=== PATIENT | male | born 1965 | race Caucasian/White ===

== ENCOUNTER 2017-04-20 14:42 | Inpatient (IN) | payer MEDICAID ==
[2017-04-20] MEDS ORDERED: Sodium Chloride 0.9% 1,000 ML IV ONE (15:05)
[2017-04-20 15:15] LABS: % BASOPHILS 0.4 % (0.0-2.0); % EOSINOPHILS 0.2 % (0.0-5.0); % LYMPHOCYTES 19.3 % (20.0-50.0); % NEUTROPHILS 73.1 % (40.0-80.0); HEMATOCRIT 38.5 % (41.0-60); MEAN CORPUSCULAR HEMOGLOBIN 30.1 pg (26.0-30.0); MEAN CORPUSCULAR HGB CONC 33.8 pg (28.0-36.0); MEAN PLATELET VOLUME 8.7 fl; PLATELET COUNT 227 Th/cmm (150-400); RED BLOOD COUNT 4.33 Mil/cmm (4.30-5.70); RED CELL DISTRIBUTION WIDTH 19.3 % (11.5-20.0)
[2017-04-20 15:18] LABS: WHITE BLOOD COUNT 13.8 Th/cmm (4.8-10.8)
[2017-04-20 15:33] LABS: ALB/GLOB RATIO 1.2 (1.0-1.8); ALKALINE PHOSPHATASE 53 U/L (34-104); BILIRUBIN,TOTAL 1.7 mg/dL (0.3-1.0); BUN - UREA NITROGEN 29 mg/dL (7-25); BUN/CREATININE RATIO 96.7; CALCIUM SERUM 8.8 mg/dL (8.6-10.3); CARBON DIOXIDE 33.6 mEq/L (21.0-31.0); CHLORIDE 114 mEq/L (98-107); CREATININE - SERUM 0.3 mg/dL (0.7-1.3); GLUCOSE 112 mg/dL (70-105); POTASSIUM SERUM 3.6 mEq/L (3.5-5.1); SGOT 33 U/L (13-39); SGPT/ALT 62 U/L (7-52); SODIUM SERUM 151 mEq/L (136-145)
[2017-04-20 16:15] LABS: HCO3 35.8 mEq/L (20.0-26.0)
[2017-04-20 16:16] LABS: ABG SOURCE Arterial; ALLEN TEST Positive; BE(B) 13.8 mEq/L (-3.0-3.0)
[2017-04-20 16:17] LABS: FIO2 100%
[2017-04-20 17:08] LABS: URINE BILIRUBIN NEGATIVE (NEGATIVE); URINE BLOOD MODERATE (NEGATIVE); URINE GLUCOSE (UA) NEGATIVE (NEGATIVE); URINE KETONE NEGATIVE (NEGATIVE); URINE PROTEIN 30 mg/dL (NEGATIVE); URINE UROBILINOGEN 0.2 E.U./dL (0.2 - 1.0)
[2017-04-20 17:09] LABS: URINE COLOR AMBER
[2017-04-20 17:10] LABS: URINE BACTERIA FEW /hpf (NONE SEEN); URINE EPITHELIAL CELLS OCCASIONAL /lpf (FEW); URINE RBC >100 /hpf (0-5)
--- NOTE | 2017-04-20 18:36 | ED Physician Chart ---
ED Chief Complaint/HPI - Patient Information Date Seen:: 04/20/17 Time Seen:: 15:30 Chief Complaint:: Fever History of Present Illness:: 51 yo male with mental retardation, cerebral palsy and spastic quadriplegia, was brought from [facility] to ER via paramedics. The patient was noted to have SOB at facility along with fever. The patient is is disabled with urinary incontinence. Allergies:: Allergies Allergy/AdvReac Type Severity Reaction Status Date / Time No Known Allergies Allergy Verified 04/20/17 14:44 Vitals:: Vital Signs - 8 hr 04/20/17 04/20/17 14:54 17:24 Temp 98.7 F 98.4 F HR 130 121 RR 25 16 BP 90/70 116/65 O2 Sat % 93 95 ED Review of Systems - Review of Systems General/Constitutional: Fever, No chills, Weakness Skin: No bruising Head: No headache Eyes: No loss of vision ENT: No nasal drainage Neck: No stiffness Cardio Vascular: No edema Pulmonary: SOB GI: No vomiting, No diarrhea G/U: Other (urinary incontinent) Hematopoietic: No bruising ED Past Medical History - Past Medical History Past Medical History: Dementia, Other (cerebral palsy, spastic queadriplegia) Social History: Non Smoker, No Alcohol, No Drug Use Family Medical History - Family Member Mother History Unknown: Yes ED Physical Exam - Physical Examination General/Constitutional: Awake Head: Atraumatic Eyes: PERRL, EOMI Skin: No ecchymosis ENMT: Nasal exam nl Neck: No nuchal rigidity Other Respiratory comments:: Left lung rhonchi Cardio Vascular: RRR, No murmur, gallop, rubs, NL S1 S2 GI: No tenderness/rebounding/guarding Other Extremities comments:: bilateral lower extremities spasm Other Neuro/Psych comments:: Not oriented ED Labs/Radiology/EKG Results - Lab Results Results: Laboratory Tests 04/20/17 04/20/17 04/20/17 15:05 15:09 15:09 WBC 13.8 H RBC 4.33 Hgb 13.0 Hct 38.5 L MCV 89.0 MCH 30.1 H MCHC Differential 33.8 RDW 19.3 Plt Count 227 MPV 8.7 Neutrophils % 73.1 Lymphocytes % 19.3 L Monocytes % 7.0 Eosinophils % 0.2 Basophils % 0.4 Specimen Source Arterial Sample Site Right Radial pH 7.50 H pCO2 50.0 H pO2 252.0 H HCO3 35.8 H Base Excess 13.8 H O2 Saturation 100.0 Endy Test Positive Vent Rate NA Inspired O2 100% Tidal Volume NA PEEP NA Pressure (ins/psv/peep) NA Critical Value ROSALINA/ABHAY Sodium 151 H Potassium 3.6 Chloride 114 H Carbon Dioxide 33.6 H Anion Gap 7.0 BUN 29 H Creatinine 0.3 L Est GFR ( Amer) > 60.0 Est GFR (Non-Af Amer) > 60.0 BUN/Creatinine Ratio 96.7 Glucose 112 H Whole Bld Lactic Acid Calcium 8.8 Total Bilirubin 1.7 H AST 33 ALT 62 H Alkaline Phosphatase 53 Total Protein 5.4 L Albumin 2.9 L Globulin 2.5 Albumin/Globulin Ratio 1.2 Urine Source Urine Color Urine Clarity Urine pH Ur Specific [place] Urine Protein Urine Glucose (UA) Urine Ketones Urine Blood Urine Nitrate Urine Bilirubin Urine Urobilinogen Ur Leukocyte Esterase Urine RBC Urine WBC Ur Epithelial Cells Urine Bacteria 04/20/17 04/20/17 15:09 16:48 WBC RBC Hgb Hct MCV MCH MCHC Differential RDW Plt Count MPV Neutrophils % Lymphocytes % Monocytes % Eosinophils % Basophils % Specimen Source Sample Site pH pCO2 pO2 HCO3 Base Excess O2 Saturation Endy Test Vent Rate Inspired O2 Tidal Volume PEEP Pressure (ins/psv/peep) Critical Value Sodium Potassium Chloride Carbon Dioxide Anion Gap BUN Creatinine Est GFR ( Amer) Est GFR (Non-Af Amer) BUN/Creatinine Ratio Glucose Whole Bld Lactic Acid 1.02 Calcium Total Bilirubin AST ALT Alkaline Phosphatase Total Protein Albumin Globulin Albumin/Globulin Ratio Urine Source RANDOM Urine Color EMORY Urine Clarity HAZY Urine pH 6.0 Ur Specific [place] 1.010 Urine Protein 30 H Urine Glucose (UA) NEGATIVE Urine Ketones NEGATIVE Urine Blood MODERATE H Urine Nitrate NEGATIVE Urine Bilirubin NEGATIVE Urine Urobilinogen 0.2 Ur Leukocyte Esterase TRACE H Urine RBC >100 H Urine WBC 2-5 H Ur Epithelial Cells OCCASIONAL Urine Bacteria FEW - Radiology Results Results: CXR: left basal density ED Assessment - Assessment General Assessment: Leukocytosis, UTI, pneumonia, hypernatremia, metabolic alkalosis, volume depletion Critical Care Time: 30 min Excludes all billable procedures: Yes This condition life threatening/high prob of deterioration: No Assessment/Comments:: CBC, CMP, UA CXR, EKG ABG Blood culture NS 1L IV bolus Rocephin 1g IV ED Septic Shock - . Is Septic Shock (SBP<90, OR Lactate>4 mmol\L) present?: No - <6hrs of presentation: Vital Signs: Vital Signs - 8 hr 04/20/17 04/20/17 14:54 17:24 Temp 98.7 F 98.4 F HR 130 121 RR 25 16 BP 90/70 116/65 O2 Sat % 93 95 ED Reassessment (Disposition) - Reassessment Reassessment Condition:: Improved - Patient Disposition Discharge/Transfer:: Acute Care w/in this [facility] Admitting Medical Physician:: Skip Stephens ED Discharge Plan - Patient Disposition Admit/Discharge/Transfer: Acute Care w/in this [facility]
[2017-04-20] MEDS ORDERED: Albuterol Nebulizer 2.5mg/3mL HHN PRN (20:45)
[2017-04-20] MEDS ORDERED: ACETAMINOPHEN 325 MG PO PRN (20:45)
[2017-04-20] MEDS ORDERED: Hydrocodone/APAP 5mg/325mg Tab PO PRN (20:47)
[2017-04-20] MEDS ORDERED: Maalox 30 mL Cup PO PRN (20:47)
[2017-04-20] MEDS ORDERED: guaiFENesin 200 MG/10 ML UDC PO PRN (20:47)
[2017-04-20] MEDS: Ipratropium Neb 0.5 mg/2.5 mL UD HHN SCH (21:52)
[2017-04-20] MEDS: D5-0.45NS 1,000 ML IV SCH (22:43)
[2017-04-21 01:40] VITALS: BP 117/68
[2017-04-21 06:23] LABS: ANION GAP 6.7 (7.0-16.0); BUN - UREA NITROGEN 23 mg/dL (7-25); CALCIUM SERUM 8.3 mg/dL (8.6-10.3); CARBON DIOXIDE 33.9 mEq/L (21.0-31.0); CHLORIDE 118 mEq/L (98-107); CREATININE - SERUM 0.2 mg/dL (0.7-1.3); MAGNESIUM 2.4 mg/dL (1.9-2.7); POTASSIUM SERUM 3.6 mEq/L (3.5-5.1); SODIUM SERUM 155 mEq/L (136-145)
[2017-04-21 06:28] LABS: % BASOPHILS 0.5 % (0.0-2.0); % EOSINOPHILS 0.5 % (0.0-5.0); % LYMPHOCYTES 18.8 % (20.0-50.0); % MONOCYTES 6.7 % (2.0-10.0); % NEUTROPHILS 73.5 % (40.0-80.0); HEMATOCRIT 33.9 % (41.0-60); HEMOGLOBIN 11.4 gm/dL (12-16); MEAN CELL VOLUME 89.6 fl (80-99); MEAN CORPUSCULAR HEMOGLOBIN 30.1 pg (26.0-30.0); MEAN CORPUSCULAR HGB CONC 33.6 pg (28.0-36.0); MEAN PLATELET VOLUME 9.2 fl; NEUTROPHILE ABSOLUTE 7.3 Th/cmm (1.8-8.0); PLATELET COUNT 195 Th/cmm (150-400); RED BLOOD COUNT 3.78 Mil/cmm (4.30-5.70); RED CELL DISTRIBUTION WIDTH 19.5 % (11.5-20.0)
[2017-04-21 06:36] LABS: WHITE BLOOD COUNT 9.7 Th/cmm (4.8-10.8)
[2017-04-21 06:47] LABS: TSH 1.13 uIU/ml (0.34-5.60)
[2017-04-21] MEDS: Ipratropium Neb 0.5 mg/2.5 mL UD HHN SCH ×4 (07:10→21:12)
[2017-04-21] MEDS: Albuterol Nebulizer 2.5mg/3mL HHN SCH ×4 (07:10→21:12)
[2017-04-21 07:19] LABS: GLUCOSE 98 mg/dL (70-105)
[2017-04-21] MEDS: Calcium Carb/Vit D 500 mg/200 U Tab PO SCH (08:49)
[2017-04-21] MEDS ORDERED: MINERALS PO SCH (09:00)
[2017-04-21] MEDS ORDERED: MULTIVIT PO SCH (09:00)
[2017-04-21] MEDS ORDERED: FERROUS FUM PO SCH (09:00)
--- NOTE | 2017-04-21 10:00 | Diagnostic Imaging Report ---
CHEST X-RAY: AP view INDICATION: Hypoxia COMPARISON: None FINDINGS: Left basal density seen adjacent to the left heart border. Chronic lung changes are seen with COPD changes. No evidence of pneumothorax. There is deformity of the right fourth posterior rib which may have been due to previous fracture. There is also 5 mm density projecting along the right anterior second rib. Heart size is normal. Osseous structures are intact. IMPRESSION: Left basal density adjacent to left heart border. Findings may be due to atelectasis or focal infiltrate, please correlate clinically. COPD lung changes. 5 mm density projecting along the right anterior second rib. This may represent an overlying lead. A pulmonary granuloma would be considered less likely. Recommend short-term repeat x-ray including apical lordotic views. Age-indeterminate deformity of the right posterior fourth rib which may have been due to previous fracture. No evidence of pneumothorax.
[2017-04-21] MEDS: D5-0.45NS 1,000 ML IV SCH (14:19)
[2017-04-21] MEDS ORDERED: Dextrose 5% 1,000 ML IV SCH (16:41)
[2017-04-21] MEDS: cefTRIAXone 1 GM in Sodium Chloride 0.9% 50 ML IV SCH (20:20)
--- NOTE | 2017-04-21 22:20 | History & Physical ---
ADMIT DATE: 04/20/2017 CHIEF COMPLAINT: Change in his mental status, not responding. HISTORY OF PRESENT ILLNESS: This is a 51-year-old male with history of dementia and mental retardation, anemia ____ was admitted from nursing facility secondary to generalized weakness. The patient was diagnosed with bladder infection and blood in the urine. The patient was admitted for further management. PAST MEDICAL HISTORY: As mentioned in history present illness. PAST SURGICAL HISTORY: G-tube. ALLERGIES: No known drug allergies. MEDICATIONS: Tylenol, albuterol, vitamin C, Colace, famotidine, metoprolol, and multivitamins. FAMILY HISTORY: Noncontributory. SOCIAL HISTORY: The patient lives in senior living. The patient requiring 24-hour total care. REVIEW OF SYSTEMS: This is limited secondary to the patient's current mental state. We will try to obtain more detailed review of system at a later date by talking to family members. There is a father, Pipe Christie, and mother ____ [phone]. The father is in the [place] area ____ as well as nursing staff at [facility] [phone] Barfield who normally follows the patient. PHYSICAL EXAMINATION: VITAL SIGNS: Blood pressure 100/59, respirations 18, pulse 104, temperature is 97.5. GENERAL: Elderly male who appears his stated age, thin. NECK: Supple. No mass. LUNGS: Equal breath sounds, few rhonchi. HEART: Regular rate and rhythm without appreciable murmurs. ABDOMEN: Soft, globular. EXTREMITIES: Positive excoriations. NEUROLOGIC: Limited, unable to get a response from the patient. LABORATORY DATA: As detailed in the laboratory sheet. WBC 13, hemoglobin 11.4, platelets is 195. Sodium 135, potassium 3.6, BUN 20, creatinine 0.3, blood sugar was 112, total bilirubin 1.7, albumin was 2.9. ASSESSMENT AND PLAN: Sepsis, urinary tract infection, leukocytosis, anemia, renal insufficiency, elevated ammonia, hematuria, mental retardation, moderate protein-calorie malnutrition. We will continue the patient on IV hydration and IV antibiotics. Continue oxygen and bronchodilator treatment. We will review the patient's chest x-ray. We will follow the patient's urine culture and sensitivity. Continue with current care. We will follow consult recommendations. [facility]# [id number]
[2017-04-22] MEDS ORDERED: Ipratropium Neb 0.5 mg/2.5 mL UD HHN ONE (06:12)
[2017-04-22] MEDS ORDERED: Albuterol Nebulizer 2.5mg/3mL HHN ONE (06:12)
[2017-04-22] MEDS: Albuterol Nebulizer 2.5mg/3mL HHN SCH ×4 (06:30→19:15)
[2017-04-22] MEDS: Ipratropium Neb 0.5 mg/2.5 mL UD HHN SCH ×4 (06:30→19:15)
--- NOTE | 2017-04-22 09:08 | Diagnostic Imaging Report ---
CHEST X-RAY: AP view INDICATION: Pneumonia COMPARISON: 04/20/2017 FINDINGS: There is linear density seen projecting along the left lateral lung which may represent area of scarring. No definite pneumothorax is identified. Increased left basal lung markings are again noted adjacent to the left heart border. The prior area of nodularity seen along the right apex is not visualized and may have represented overlying external material. Heart size is normal. IMPRESSION: Left basal density along the left heart border. Pneumonia in this region cannot be excluded. Please correlate with clinical findings. CT of the chest would provide additional detail and assessment. Left lateral lung linear density projecting vertically. This may represent areas of scarring and chronic changes. No definite pneumothorax is identified. Again CT would further clarify.
[2017-04-22] MEDS: Calcium Carb/Vit D 500 mg/200 U Tab PO SCH (09:27)
[2017-04-22] MEDS ORDERED: Probiotic Screen MC PRN (13:30)
--- NOTE | 2017-04-22 19:03 | Internal Medicine Prog Note ---
Internal Medicine Subjective - Subjective Patient seen and examined:: with staff, chart reviewed Patient is:: awake, non-verbal, non-interactive, in bed, congested Patient Complaints of:: congestion Per staff patient has:: no adverse event, no episodes of fall, poor appetite, poor oral intake, tolerating meds Internal Medicine Objective - Results Result Diagrams: 04/21/17 05:05 04/21/17 05:05 Recent Labs: Laboratory Last Values WBC 9.7 Th/cmm (4.8-10.8) D 04/21/17 05:05 RBC 3.78 Mil/cmm (4.30-5.70) L 04/21/17 05:05 Hgb 11.4 gm/dL (12-16) L 04/21/17 05:05 Hct 33.9 % (41.0-60) L D 04/21/17 05:05 MCV 89.6 fl (80-99) 04/21/17 05:05 MCH 30.1 pg (26.0-30.0) H 04/21/17 05:05 MCHC Differential 33.6 pg (28.0-36.0) 04/21/17 05:05 RDW 19.5 % (11.5-20.0) 04/21/17 05:05 Plt Count 195 Th/cmm (150-400) 04/21/17 05:05 MPV 9.2 fl 04/21/17 05:05 Neutrophils % 73.5 % (40.0-80.0) 04/21/17 05:05 Lymphocytes % 18.8 % (20.0-50.0) L 04/21/17 05:05 Monocytes % 6.7 % (2.0-10.0) 04/21/17 05:05 Eosinophils % 0.5 % (0.0-5.0) 04/21/17 05:05 Basophils % 0.5 % (0.0-2.0) 04/21/17 05:05 Specimen Source Arterial 04/20/17 15:05 Sample Site Right Radial 04/20/17 15:05 pH 7.50 (7.35-7.45) H 04/20/17 15:05 pCO2 50.0 mmHg (35.0-45.0) H 04/20/17 15:05 pO2 252.0 mmHg (80.0-100.0) H 04/20/17 15:05 HCO3 35.8 mEq/L (20.0-26.0) H 04/20/17 15:05 Base Excess 13.8 mEq/L (-3.0-3.0) H 04/20/17 15:05 O2 Saturation 100.0 % (92.0-100.0) 04/20/17 15:05 Endy Test Positive 04/20/17 15:05 Vent Rate NA 04/20/17 15:05 Inspired O2 100% 04/20/17 15:05 Tidal Volume NA 04/20/17 15:05 PEEP NA 04/20/17 15:05 Pressure (ins/psv/peep) NA 04/20/17 15:05 Critical Value ROSALINA/ABHAY 04/20/17 15:05 Sodium 155 mEq/L (136-145) H 04/21/17 05:05 Potassium 3.6 mEq/L (3.5-5.1) 04/21/17 05:05 Chloride 118 mEq/L (98-107) H 04/21/17 05:05 Carbon Dioxide 33.9 mEq/L (21.0-31.0) H 04/21/17 05:05 Anion Gap 6.7 (7.0-16.0) L 04/21/17 05:05 BUN 23 mg/dL (7-25) 04/21/17 05:05 Creatinine 0.2 mg/dL (0.7-1.3) L 04/21/17 05:05 Est GFR ( Amer) > 60.0 ml/min (>90) 04/21/17 05:05 Est GFR (Non-Af Amer) > 60.0 ml/min 04/21/17 05:05 BUN/Creatinine Ratio 115.0 04/21/17 05:05 Glucose 98 mg/dL (70-105) D 04/21/17 05:05 Whole Bld Lactic Acid 1.02 mmol/L (0.60-1.99) 04/20/17 15:09 Calcium 8.3 mg/dL (8.6-10.3) L 04/21/17 05:05 Magnesium 2.4 mg/dL (1.9-2.7) 04/21/17 05:05 Total Bilirubin 1.7 mg/dL (0.3-1.0) H 04/20/17 15:09 AST 33 U/L (13-39) 04/20/17 15:09 ALT 62 U/L (7-52) H 04/20/17 15:09 Alkaline Phosphatase 53 U/L (34-104) 04/20/17 15:09 Ammonia 58 umol/L (16-53) H 04/21/17 05:05 Total Protein 5.4 gm/dL (6.0-8.3) L 04/20/17 15:09 Albumin 2.9 gm/dL (4.2-5.5) L 04/20/17 15:09 Globulin 2.5 gm/dL 04/20/17 15:09 Albumin/Globulin Ratio 1.2 (1.0-1.8) 04/20/17 15:09 TSH 1.13 uIU/ml (0.34-5.60) 04/21/17 05:05 Urine Source RANDOM 04/20/17 16:48 Urine Color EMORY 04/20/17 16:48 Urine Clarity HAZY (CLEAR) 04/20/17 16:48 Urine pH 6.0 (4.6 - 8.0) 04/20/17 16:48 Ur Specific [place] 1.010 (1.005-1.030) 04/20/17 16:48 Urine Protein 30 mg/dL (NEGATIVE) H 04/20/17 16:48 Urine Glucose (UA) NEGATIVE mg/dL (NEGATIVE) 04/20/17 16:48 Urine Ketones NEGATIVE mg/dL (NEGATIVE) 04/20/17 16:48 Urine Blood MODERATE (NEGATIVE) H 04/20/17 16:48 Urine Nitrate NEGATIVE (NEGATIVE) 04/20/17 16:48 Urine Bilirubin NEGATIVE (NEGATIVE) 04/20/17 16:48 Urine Urobilinogen 0.2 E.U./dL (0.2 - 1.0) 04/20/17 16:48 Ur Leukocyte Esterase TRACE (NEGATIVE) H 04/20/17 16:48 Urine RBC >100 /hpf (0-5) H 04/20/17 16:48 Urine WBC 2-5 /hpf (0-5) H 04/20/17 16:48 Ur Epithelial Cells OCCASIONAL /lpf (FEW) 04/20/17 16:48 Urine Bacteria FEW /hpf (NONE SEEN) 04/20/17 16:48 - Physical Exam Vitals and I&O: Vital Signs Temp 98.2 F 04/22/17 16:14 Pulse 101 04/22/17 16:55 Resp 18 04/22/17 16:14 BP 101/62 04/22/17 16:55 Pulse Ox 97 04/22/17 16:14 Intake & Output 04/22/17 04/22/17 04/23/17 06:59 18:59 06:59 Intake Total 75 900 Balance 75 900 Weight (lbs) 48.591 kg 48.591 kg Intake: Tube Feeding 75 900 Other: # Voids 1 4 # Bowel Movements 1 0 Active Medications: Current Medications Acetaminophen (Tylenol) 650 mg PO Q4H PRN PRN Reason: Mild Pain Or Fever above 101 Stop: 06/19/17 20:48 Acetaminophen (Tylenol) 325 mg PO Q6H PRN PRN Reason: PAIN Stop: 06/20/17 07:57 Acetaminophen/Hydrocodone Bitart ([place] 5mg/325mg) 1 tab PO Q4H PRN PRN Reason: Pain (Severe) Stop: 06/19/17 20:46 Al Hydrox/Mg Hydrox/Simethicone (Maalox) 30 ml PO Q6H PRN PRN Reason: Dyspepsia Stop: 06/19/17 20:46 Albuterol Sulfate (Albuterol 2.5mg/3ml Neb Ud) 1 mg HHN Q4H PRN PRN Reason: Shortness of Breath Stop: 06/19/17 20:44 Last Admin: 04/20/17 21:53 Dose: 1 mg Albuterol Sulfate (Albuterol 2.5mg/3ml Neb Ud) 2.5 mg HHN QIDRT [facility] Stop: 06/20/17 06:59 Last Admin: 04/22/17 14:11 Dose: 2.5 mg Ascorbic Acid (Vitamin C) 500 mg PO DAILY [facility] Stop: 06/20/17 08:59 Last Admin: 04/22/17 09:26 Dose: 500 mg Calcium/Vitamin D (Oscal W/Vitamin D) 1 tab PO DAILY [facility] Stop: 06/20/17 08:59 Last Admin: 04/22/17 09:27 Dose: 1 tab Docusate Sodium (Colace) 100 mg PO DAILY [facility] Stop: 06/20/17 08:59 Last Admin: 04/22/17 09:26 Dose: 100 mg Famotidine (Pepcid) 20 mg PO DAILY [facility] Stop: 06/20/17 08:59 Last Admin: 04/22/17 09:27 Dose: 20 mg Guaifenesin (Robitussin) 200 mg PO Q4HR PRN PRN Reason: Cough or Congestion Stop: 06/19/17 20:46 Ceftriaxone Sodium 1 gm/ (Sodium Chloride) 50 mls @ 100 mls/hr IV Q24HR [facility] Stop: 06/20/17 20:59 Last Admin: 04/21/17 20:20 Dose: 100 mls/hr Dextrose (D5w) 1,000 mls @ 75 mls/hr IV .[id number] [facility] Stop: 06/20/17 16:40 Last Admin: 04/21/17 17:08 Dose: 75 mls/hr Influenza Virus Vaccine (Fluarix) 0.5 ml IM .ONCE ONE Stop: 04/23/17 09:01 Ipratropium Brock (Atrovent Neb 0.5mg/2.5ml) 0.5 mg HHN QIDRT [facility] Stop: 06/19/17 18:59 Last Admin: 04/22/17 14:11 Dose: 0.5 mg Lactobacillus Rhamnosus (Culturelle) 1 each PO DAILY [facility] Stop: 06/22/17 08:59 Metoprolol Tartrate (Lopressor) 50 mg PO BID [facility] Stop: 06/20/17 08:59 Last Admin: 04/22/17 16:55 Dose: 50 mg Miscellaneous (Probiotic Screen) 1 ea MC PRN PRN PRN Reason: PROTOCOL Stop: 06/21/17 13:29 Ondansetron HCl (Zofran) 4 mg IV Q8H PRN PRN Reason: Nausea / Vomiting Stop: 06/19/17 20:48 General: congested, demented, appears older HEENT: NC/AT, PERRLA, thinning hair, poor dentition Neck: Supple, No LAD, deformity Lungs: congested, rales Cardiovascular: RRR, Normal S1, Normal S2 Abdomen: soft, non-distended, +GT Extremities: edema, excoriation, contracture, deformity, atrophy Neurological: unable to follow command Internal Medicine Assmt/Plan - Assessment Assessment: left basal density sepsis leukocytosis anemia ri elevated ammonia hematuria mod protein marleen m alnutrition mr - Plan Plan: cont on iv abx o2 bronchodilator tx cxr noted will order ct chest will correct lyts cw rn Nutritional Asmnt/Malnutr-PDOC - Dietary Evaluation Malnutrition Findings (Please click <Entered> for more info): Nutritional Asmnt/Malnutrition Start: 04/22/17 15: 01 Text: Status: Complete Freq: Document 04/22/17 15:01 [facility] (Rec: 04/22/17 15:28 [facility] Nutritional Asmnt/Malnutrition Patient General Information Nutritional Screening High Risk Consult Diagnosis leukocytosis Pertinent Medical Hx/Surgical Hx G-tube, dementia, mental retardation, anemia Subjective Information Consult received for Anibal score 12 and avtive wound. Pt seen resting in bed during the time of visit, non-verbal noted. Verified TF Isosource 1 .5 running at 75/hr at this time. Spoke with PATRICK Ward, pt is tolerating TF well. Current Diet Order/ Nutrition Support Isosource 1.5 75ml/hr x 12hr Pertinent Medications Vit C, Valcium, Vit D, D5w, colace, culturelle, ceftriaxone Pertinent Labs 04/21 na 155H, Cl 118H, BUN 23 , Cr 0.2L, Ca 8.3L, Glu 98, Ammonia 58H Nutritional Hx/Data Height 1.68 m Height (Calculated Centimeters) 167.6 Current Weight (lbs) 48.58 kg Weight (Calculated Kilograms) 48.6 Weight (Calculated Grams) 39762.7 [place] Body Weight 142 Body Mass Index (BMI) 17.2 GI Symptoms Usual diet at home Pureed high fiber diet with nectar thick liquids, protein power x 2 scoops with juice BID at SNF. Skin Integrity/Comment: Pressure ulceration on coccyx Estimated Nutritional Goals BEE in Kcals: Using Current wt Calories/Kcals/Kg 30-35 Kcals Calculated [id number] Protein: Using Current wt Protein g/k.2-1.4 Protein Calculated 59-69 Fluid: ml [id number] Nutritional Problem 1. Problem Problem increased nutrition needs ( calorie and protein) Etiology increased metabolic demand for wound healing Signs/Symptoms: active wound-presure ulceration on coccyx Malnutrition Alert Protein-Calorie Malnutrition N/A Is there a minimum of two criteria No selected? Query Text:Check all the applicable criteria. A minimum of two criteria are recommended for diagnosis of either severe or non-severe malnutrition. Intervention/Recommendation Comments 1. Continue with current TF regimen. it provides 900ml total volume, 1350kcal, 61g protein, meeting 92% of lower end of calorie needs and 100% of protein needs. 2. Recomend Argenaid 1pk daily with TF to help wound healing 3. Monitor TF rate, tolerance, labs and skin integrity 4. F/U as high risk in 2-3 days, 04/24-04/25 Expected Outcomes/Goals Expected Outcomes/Goals 1. pt to meet at least 75% of nutritional needs via nutrition support with tolerance 2. wt stability, labs and skin to improve
[2017-04-22] MEDS: cefTRIAXone 1 GM in Sodium Chloride 0.9% 50 ML IV SCH (21:30)
[2017-04-23] MEDS: Albuterol Nebulizer 2.5mg/3mL HHN SCH ×4 (06:39→19:40)
[2017-04-23] MEDS: Ipratropium Neb 0.5 mg/2.5 mL UD HHN SCH ×4 (06:39→19:40)
--- NOTE | 2017-04-23 08:16 | Diagnostic Imaging Report ---
CT Chest without IV contrast HISTORY: Pneumonia COMPARISON: Chest x-ray 04/22/2017. Technique: Axial images were obtained from the base of the neck to the upper abdomen without IV contrast. Reconstructions were made. Total DLP to 37, CTD I 1195 Findings: Evaluation of mediastinum is limited due to lack of IV contrast. Few nonenlarged mediastinal lymph nodes are noted without evidence of mediastinal lymphadenopathy. No evidence of any aortic aneurysm. The heart size is normal. No evidence of a pericardial effusion. Air distended esophagus is noted. Chronic lung changes are seen with probable COPD. Bibasal infiltrates are seen left greater than right with mild left basal consolidative changes also noted. Additional hypoventilatory changes of the lung bases are also noted. No evidence of pleural effusions. The upper abdomen demonstrates borderline prominent spleen. Degenerative changes of the spine are noted. IMPRESSION: COPD lung changes. Bibasal infiltrates are also noted left greater than right with left basal consolidative changes. Short-term follow-up is recommended to ensure resolution. Air distended esophagus incidentally noted.
[2017-04-23] MEDS ORDERED: Influenza Vaccine 0.5 mL Syr IM ONE (09:00)
[2017-04-23] MEDS: Lactobacillus Rhamnosus 10 Billion CFU Capsule PO SCH (09:19)
[2017-04-23] MEDS: Calcium Carb/Vit D 500 mg/200 U Tab PO SCH (09:20)
--- NOTE | 2017-04-23 10:01 | Internal Medicine Prog Note ---
Internal Medicine Subjective - Subjective Service Date: 04/23/17 Patient seen and examined:: with staff Patient is:: awake, non-verbal, non-interactive, in bed, congested Patient Complaints of:: congestion Per staff patient has:: no adverse event, no episodes of fall, poor appetite, poor oral intake, tolerating meds Internal Medicine Objective - Results Result Diagrams: 04/21/17 05:05 04/21/17 05:05 Recent Labs: Laboratory Last Values WBC 9.7 Th/cmm (4.8-10.8) D 04/21/17 05:05 RBC 3.78 Mil/cmm (4.30-5.70) L 04/21/17 05:05 Hgb 11.4 gm/dL (12-16) L 04/21/17 05:05 Hct 33.9 % (41.0-60) L D 04/21/17 05:05 MCV 89.6 fl (80-99) 04/21/17 05:05 MCH 30.1 pg (26.0-30.0) H 04/21/17 05:05 MCHC Differential 33.6 pg (28.0-36.0) 04/21/17 05:05 RDW 19.5 % (11.5-20.0) 04/21/17 05:05 Plt Count 195 Th/cmm (150-400) 04/21/17 05:05 MPV 9.2 fl 04/21/17 05:05 Neutrophils % 73.5 % (40.0-80.0) 04/21/17 05:05 Lymphocytes % 18.8 % (20.0-50.0) L 04/21/17 05:05 Monocytes % 6.7 % (2.0-10.0) 04/21/17 05:05 Eosinophils % 0.5 % (0.0-5.0) 04/21/17 05:05 Basophils % 0.5 % (0.0-2.0) 04/21/17 05:05 Specimen Source Arterial 04/20/17 15:05 Sample Site Right Radial 04/20/17 15:05 pH 7.50 (7.35-7.45) H 04/20/17 15:05 pCO2 50.0 mmHg (35.0-45.0) H 04/20/17 15:05 pO2 252.0 mmHg (80.0-100.0) H 04/20/17 15:05 HCO3 35.8 mEq/L (20.0-26.0) H 04/20/17 15:05 Base Excess 13.8 mEq/L (-3.0-3.0) H 04/20/17 15:05 O2 Saturation 100.0 % (92.0-100.0) 04/20/17 15:05 Endy Test Positive 04/20/17 15:05 Vent Rate NA 04/20/17 15:05 Inspired O2 100% 04/20/17 15:05 Tidal Volume NA 04/20/17 15:05 PEEP NA 04/20/17 15:05 Pressure (ins/psv/peep) NA 04/20/17 15:05 Critical Value ROSALINA/ABHAY 04/20/17 15:05 Sodium 155 mEq/L (136-145) H 04/21/17 05:05 Potassium 3.6 mEq/L (3.5-5.1) 04/21/17 05:05 Chloride 118 mEq/L (98-107) H 04/21/17 05:05 Carbon Dioxide 33.9 mEq/L (21.0-31.0) H 04/21/17 05:05 Anion Gap 6.7 (7.0-16.0) L 04/21/17 05:05 BUN 23 mg/dL (7-25) 04/21/17 05:05 Creatinine 0.2 mg/dL (0.7-1.3) L 04/21/17 05:05 Est GFR ( Amer) > 60.0 ml/min (>90) 04/21/17 05:05 Est GFR (Non-Af Amer) > 60.0 ml/min 04/21/17 05:05 BUN/Creatinine Ratio 115.0 04/21/17 05:05 Glucose 98 mg/dL (70-105) D 04/21/17 05:05 Whole Bld Lactic Acid 1.02 mmol/L (0.60-1.99) 04/20/17 15:09 Calcium 8.3 mg/dL (8.6-10.3) L 04/21/17 05:05 Magnesium 2.4 mg/dL (1.9-2.7) 04/21/17 05:05 Total Bilirubin 1.7 mg/dL (0.3-1.0) H 04/20/17 15:09 AST 33 U/L (13-39) 04/20/17 15:09 ALT 62 U/L (7-52) H 04/20/17 15:09 Alkaline Phosphatase 53 U/L (34-104) 04/20/17 15:09 Ammonia 58 umol/L (16-53) H 04/21/17 05:05 Total Protein 5.4 gm/dL (6.0-8.3) L 04/20/17 15:09 Albumin 2.9 gm/dL (4.2-5.5) L 04/20/17 15:09 Globulin 2.5 gm/dL 04/20/17 15:09 Albumin/Globulin Ratio 1.2 (1.0-1.8) 04/20/17 15:09 TSH 1.13 uIU/ml (0.34-5.60) 04/21/17 05:05 Urine Source RANDOM 04/20/17 16:48 Urine Color EMORY 04/20/17 16:48 Urine Clarity HAZY (CLEAR) 04/20/17 16:48 Urine pH 6.0 (4.6 - 8.0) 04/20/17 16:48 Ur Specific [place] 1.010 (1.005-1.030) 04/20/17 16:48 Urine Protein 30 mg/dL (NEGATIVE) H 04/20/17 16:48 Urine Glucose (UA) NEGATIVE mg/dL (NEGATIVE) 04/20/17 16:48 Urine Ketones NEGATIVE mg/dL (NEGATIVE) 04/20/17 16:48 Urine Blood MODERATE (NEGATIVE) H 04/20/17 16:48 Urine Nitrate NEGATIVE (NEGATIVE) 04/20/17 16:48 Urine Bilirubin NEGATIVE (NEGATIVE) 04/20/17 16:48 Urine Urobilinogen 0.2 E.U./dL (0.2 - 1.0) 04/20/17 16:48 Ur Leukocyte Esterase TRACE (NEGATIVE) H 04/20/17 16:48 Urine RBC >100 /hpf (0-5) H 04/20/17 16:48 Urine WBC 2-5 /hpf (0-5) H 04/20/17 16:48 Ur Epithelial Cells OCCASIONAL /lpf (FEW) 04/20/17 16:48 Urine Bacteria FEW /hpf (NONE SEEN) 04/20/17 16:48 - Physical Exam Vitals and I&O: Vital Signs Temp 97.5 F 04/23/17 04:00 Pulse 118 04/23/17 09:20 Resp 14 04/23/17 06:40 BP 107/54 04/23/17 09:20 Pulse Ox 97 04/23/17 06:40 Intake & Output 04/22/17 04/23/17 04/23/17 18:59 06:59 18:59 Intake Total 900 1000 Balance 900 1000 Weight (lbs) 107 lb 2 oz 107 lb 2 oz Intake: Intake, IV Amount 1000 Dextrose 5% 1,000 ml @ 75 1000 mls/hr IV .[id number] [facility] Rx#:[id number] Tube Feeding 900 Other: # Voids 4 4 # Bowel Movements 0 0 Active Medications: Current Medications Acetaminophen (Tylenol) 650 mg PO Q4H PRN PRN Reason: Mild Pain Or Fever above 101 Stop: 06/19/17 20:48 Acetaminophen (Tylenol) 325 mg PO Q6H PRN PRN Reason: PAIN Stop: 06/20/17 07:57 Acetaminophen/Hydrocodone Bitart ([place] 5mg/325mg) 1 tab PO Q4H PRN PRN Reason: Pain (Severe) Stop: 06/19/17 20:46 Al Hydrox/Mg Hydrox/Simethicone (Maalox) 30 ml PO Q6H PRN PRN Reason: Dyspepsia Stop: 06/19/17 20:46 Albuterol Sulfate (Albuterol 2.5mg/3ml Neb Ud) 1 mg HHN Q4H PRN PRN Reason: Shortness of Breath Stop: 06/19/17 20:44 Last Admin: 04/20/17 21:53 Dose: 1 mg Albuterol Sulfate (Albuterol 2.5mg/3ml Neb Ud) 2.5 mg HHN QIDRT [facility] Stop: 06/20/17 06:59 Last Admin: 04/23/17 06:39 Dose: 2.5 mg Ascorbic Acid (Vitamin C) 500 mg PO DAILY [facility] Stop: 06/20/17 08:59 Last Admin: 04/23/17 09:20 Dose: 500 mg Calcium/Vitamin D (Oscal W/Vitamin D) 1 tab PO DAILY [facility] Stop: 06/20/17 08:59 Last Admin: 04/23/17 09:20 Dose: 1 tab Docusate Sodium (Colace) 100 mg PO DAILY [facility] Stop: 06/20/17 08:59 Last Admin: 04/23/17 09:19 Dose: 100 mg Famotidine (Pepcid) 20 mg PO DAILY [facility] Stop: 06/20/17 08:59 Last Admin: 04/23/17 09:20 Dose: 20 mg Guaifenesin (Robitussin) 200 mg PO Q4HR PRN PRN Reason: Cough or Congestion Stop: 06/19/17 20:46 Ceftriaxone Sodium 1 gm/ (Sodium Chloride) 50 mls @ 100 mls/hr IV Q24HR [facility] Stop: 06/20/17 20:59 Last Admin: 04/22/17 21:30 Dose: 100 mls/hr Dextrose (D5w) 1,000 mls @ 75 mls/hr IV .[id number] [facility] Stop: 06/20/17 16:40 Last Infusion: 04/23/17 06:02 Dose: Infused Ipratropium [place] (Atrovent Neb 0.5mg/2.5ml) 0.5 mg HHN QIDRT [facility] Stop: 06/19/17 18:59 Last Admin: 04/23/17 06:39 Dose: 0.5 mg Lactobacillus Rhamnosus (Culturelle) 1 each PO DAILY [facility] Stop: 06/22/17 08:59 Last Admin: 04/23/17 09:19 Dose: 1 each Metoprolol Tartrate (Lopressor) 50 mg PO BID [facility] Stop: 06/20/17 08:59 Last Admin: 04/23/17 09:20 Dose: 50 mg Miscellaneous (Probiotic Screen) 1 ea [facility] PRN PRN PRN Reason: PROTOCOL Stop: 06/21/17 13:29 Ondansetron HCl (Zofran) 4 mg IV Q8H PRN PRN Reason: Nausea / Vomiting Stop: 06/19/17 20:48 General: congested, demented, appears older HEENT: NC/AT, PERRLA, thinning hair, poor dentition Neck: Supple, No LAD, deformity Lungs: congested, rales Cardiovascular: RRR, Normal S1, Normal S2 Abdomen: soft, non-distended, +GT Extremities: edema, excoriation, contracture, deformity, atrophy Neurological: unable to follow command Internal Medicine Assmt/Plan - Assessment Assessment: left basal density sepsis leukocytosis anemia ri elevated ammonia hematuria mod protein marleen m alnutrition mr - Plan Plan: follow up chest xray RT to suction patient continue with bronchodilators follow up labs in am if medically stable will dc tomorrow. continue ivabx continue current plan of care Nutritional Asmnt/Malnutr-PDOC - Dietary Evaluation Malnutrition Findings (Please click <Entered> for more info): Nutritional Asmnt/Malnutrition Start: 04/22/17 15: 01 Text: Status: Complete Freq: Document 04/22/17 15:01 JOSELIN (Rec: 04/22/17 15:28 [id number]) Nutritional Asmnt/Malnutrition Patient General Information Nutritional Screening High Risk Consult Diagnosis leukocytosis Pertinent Medical Hx/Surgical Hx G-tube, dementia, mental retardation, anemia Subjective Information Consult received for Anibal score 12 and avtive wound. Pt seen resting in bed during the time of visit, non-verbal noted. Verified TF Isosource 1 .5 running at 75/hr at this time. Spoke with PATRICK Ward, pt is tolerating TF well. Current Diet Order/ Nutrition Support Isosource 1.5 75ml/hr x 12hr Pertinent Medications Vit C, Valcium, Vit D, D5w, colace, culturelle, ceftriaxone Pertinent Labs 04/21 na 155H, Cl 118H, BUN 23 , Cr 0.2L, Ca 8.3L, Glu 98, Ammonia 58H Nutritional Hx/Data Height 5 ft 6 in Height (Calculated Centimeters) 167.6 Current Weight (lbs) 107 lb 1.6 oz Weight (Calculated Kilograms) 48.6 Weight (Calculated Grams) 98978.7 [place] Body Weight 142 Body Mass Index (BMI) 17.2 GI Symptoms Usual diet at home Pureed high fiber diet with nectar thick liquids, protein power x 2 scoops with juice BID at SNF. Skin Integrity/Comment: Pressure ulceration on coccyx Estimated Nutritional Goals BEE in Kcals: Using Current wt Calories/Kcals/Kg 30-35 Kcals Calculated 7675-7163 Protein: Using Current wt Protein g/k.2-1.4 Protein Calculated 59-69 Fluid: ml 7751-3258 Nutritional Problem 1. Problem Problem increased nutrition needs ( calorie and protein) Etiology increased metabolic demand for wound healing Signs/Symptoms: active wound-presure ulceration on coccyx Malnutrition Alert Protein-Calorie Malnutrition N/A Is there a minimum of two criteria No selected? Query Text:Check all the applicable criteria. A minimum of two criteria are recommended for diagnosis of either severe or non-severe malnutrition. Intervention/Recommendation Comments 1. Continue with current TF regimen. it provides 900ml total volume, 1350kcal, 61g protein, meeting 92% of lower end of calorie needs and 100% of protein needs. 2. Recomend Argenaid 1pk daily with TF to help wound healing 3. Monitor TF rate, tolerance, labs and skin integrity 4. F/U as high risk in 2-3 days, 04/24-04/25 Expected Outcomes/Goals Expected Outcomes/Goals 1. pt to meet at least 75% of nutritional needs via nutrition support with tolerance 2. wt stability, labs and skin to improve
[2017-04-23] MEDS: cefTRIAXone 1 GM in Sodium Chloride 0.9% 50 ML IV SCH (22:47)
[2017-04-24 02:20] LABS: FOLIC ACID 18.1 ng/mL (>3.0)
[2017-04-24 05:40] LABS: % BASOPHILS 0.4 % (0.0-2.0); % EOSINOPHILS 0.8 % (0.0-5.0); % LYMPHOCYTES 20.7 % (20.0-50.0); % MONOCYTES 7.4 % (2.0-10.0); % NEUTROPHILS 70.7 % (40.0-80.0); HEMATOCRIT 32.1 % (41.0-60); HEMOGLOBIN 10.9 gm/dL (12-16); MEAN CELL VOLUME 89.1 fl (80-99); MEAN CORPUSCULAR HEMOGLOBIN 30.2 pg (26.0-30.0); MEAN CORPUSCULAR HGB CONC 33.9 pg (28.0-36.0); MEAN PLATELET VOLUME 8.5 fl; PLATELET COUNT 193 Th/cmm (150-400); RED BLOOD COUNT 3.61 Mil/cmm (4.30-5.70); RED CELL DISTRIBUTION WIDTH 18.7 % (11.5-20.0)
[2017-04-24 05:43] LABS: WHITE BLOOD COUNT 5.6 Th/cmm (4.8-10.8)
[2017-04-24 05:54] LABS: ANION GAP 6.6 (7.0-16.0); BUN - UREA NITROGEN 12 mg/dL (7-25); CALCIUM SERUM 8.5 mg/dL (8.6-10.3); CARBON DIOXIDE 33.1 mEq/L (21.0-31.0); CHLORIDE 113 mEq/L (98-107); GLUCOSE 95 mg/dL (70-105); POTASSIUM SERUM 3.7 mEq/L (3.5-5.1); SODIUM SERUM 149 mEq/L (136-145)
[2017-04-24 05:58] LABS: CREATININE - SERUM < 0.2 mg/dL (0.7-1.3)
[2017-04-24] MEDS: Ipratropium Neb 0.5 mg/2.5 mL UD HHN SCH ×3 (07:58→15:34)
[2017-04-24] MEDS: Albuterol Nebulizer 2.5mg/3mL HHN SCH (07:58)
[2017-04-24] MEDS: Calcium Carb/Vit D 500 mg/200 U Tab PO SCH (09:55)
[2017-04-24] MEDS: Lactobacillus Rhamnosus 10 Billion CFU Capsule PO SCH (09:55)
--- NOTE | 2017-04-24 10:03 | Internal Medicine Prog Note ---
Internal Medicine Subjective - Subjective Service Date: 04/24/17 ([id number] dc summary) Patient is:: awake, non-verbal, non-interactive, in bed, congested Patient Complaints of:: congestion Per staff patient has:: no adverse event, no episodes of fall, poor appetite, poor oral intake, tolerating meds Internal Medicine Objective - Results Result Diagrams: 04/24/17 05:16 04/24/17 05:16 Recent Labs: Laboratory Last Values WBC 5.6 Th/cmm (4.8-10.8) D 04/24/17 05:16 RBC 3.61 Mil/cmm (4.30-5.70) L 04/24/17 05:16 Hgb 10.9 gm/dL (12-16) L 04/24/17 05:16 Hct 32.1 % (41.0-60) L 04/24/17 05:16 MCV 89.1 fl (80-99) 04/24/17 05:16 MCH 30.2 pg (26.0-30.0) H 04/24/17 05:16 MCHC Differential 33.9 pg (28.0-36.0) 04/24/17 05:16 RDW 18.7 % (11.5-20.0) 04/24/17 05:16 Plt Count 193 Th/cmm (150-400) 04/24/17 05:16 MPV 8.5 fl 04/24/17 05:16 Neutrophils % 70.7 % (40.0-80.0) 04/24/17 05:16 Lymphocytes % 20.7 % (20.0-50.0) 04/24/17 05:16 Monocytes % 7.4 % (2.0-10.0) 04/24/17 05:16 Eosinophils % 0.8 % (0.0-5.0) 04/24/17 05:16 Basophils % 0.4 % (0.0-2.0) 04/24/17 05:16 Specimen Source Arterial 04/20/17 15:05 Sample Site Right Radial 04/20/17 15:05 pH 7.50 (7.35-7.45) H 04/20/17 15:05 pCO2 50.0 mmHg (35.0-45.0) H 04/20/17 15:05 pO2 252.0 mmHg (80.0-100.0) H 04/20/17 15:05 HCO3 35.8 mEq/L (20.0-26.0) H 04/20/17 15:05 Base Excess 13.8 mEq/L (-3.0-3.0) H 04/20/17 15:05 O2 Saturation 100.0 % (92.0-100.0) 04/20/17 15:05 Endy Test Positive 04/20/17 15:05 Vent Rate NA 04/20/17 15:05 Inspired O2 100% 04/20/17 15:05 Tidal Volume NA 04/20/17 15:05 PEEP NA 04/20/17 15:05 Pressure (ins/psv/peep) NA 04/20/17 15:05 Critical Value ROSALINA/ABHAY 04/20/17 15:05 Sodium 149 mEq/L (136-145) H 04/24/17 05:16 Potassium 3.7 mEq/L (3.5-5.1) 04/24/17 05:16 Chloride 113 mEq/L (98-107) H 04/24/17 05:16 Carbon Dioxide 33.1 mEq/L (21.0-31.0) H 04/24/17 05:16 Anion Gap 6.6 (7.0-16.0) L 04/24/17 05:16 BUN 12 mg/dL (7-25) 04/24/17 05:16 Creatinine < 0.2 mg/dL (0.7-1.3) L 04/24/17 05:16 Est GFR ( Amer) > 60.0 ml/min (>90) 04/24/17 05:16 Est GFR (Non-Af Amer) > 60.0 ml/min 04/24/17 05:16 BUN/Creatinine Ratio 60.0 04/24/17 05:16 Glucose 95 mg/dL (70-105) 04/24/17 05:16 Whole Bld Lactic Acid 1.02 mmol/L (0.60-1.99) 04/20/17 15:09 Calcium 8.5 mg/dL (8.6-10.3) L 04/24/17 05:16 Magnesium 2.4 mg/dL (1.9-2.7) 04/21/17 05:05 Total Bilirubin 1.7 mg/dL (0.3-1.0) H 04/20/17 15:09 AST 33 U/L (13-39) 04/20/17 15:09 ALT 62 U/L (7-52) H 04/20/17 15:09 Alkaline Phosphatase 53 U/L (34-104) 04/20/17 15:09 Ammonia 58 umol/L (16-53) H 04/21/17 05:05 Total Protein 5.4 gm/dL (6.0-8.3) L 04/20/17 15:09 Albumin 2.9 gm/dL (4.2-5.5) L 04/20/17 15:09 Globulin 2.5 gm/dL 04/20/17 15:09 Albumin/Globulin Ratio 1.2 (1.0-1.8) 04/20/17 15:09 Vitamin B12 1637 pg/mL (211-946) H 04/21/17 05:05 Folic Acid 18.1 ng/mL (>3.0) 04/21/17 05:05 TSH 1.13 uIU/ml (0.34-5.60) 04/21/17 05:05 Urine Source RANDOM 04/20/17 16:48 Urine Color [place] 04/20/17 16:48 Urine Clarity HAZY (CLEAR) 04/20/17 16:48 Urine pH 6.0 (4.6 - 8.0) 04/20/17 16:48 Ur Specific [place] 1.010 (1.005-1.030) 04/20/17 16:48 Urine Protein 30 mg/dL (NEGATIVE) H 04/20/17 16:48 Urine Glucose (UA) NEGATIVE mg/dL (NEGATIVE) 04/20/17 16:48 Urine Ketones NEGATIVE mg/dL (NEGATIVE) 04/20/17 16:48 Urine Blood MODERATE (NEGATIVE) H 04/20/17 16:48 Urine Nitrate NEGATIVE (NEGATIVE) 04/20/17 16:48 Urine Bilirubin NEGATIVE (NEGATIVE) 04/20/17 16:48 Urine Urobilinogen 0.2 E.U./dL (0.2 - 1.0) 04/20/17 16:48 Ur Leukocyte Esterase TRACE (NEGATIVE) H 04/20/17 16:48 Urine RBC >100 /hpf (0-5) H 04/20/17 16:48 Urine WBC 2-5 /hpf (0-5) H 04/20/17 16:48 Ur Epithelial Cells OCCASIONAL /lpf (FEW) 04/20/17 16:48 Urine Bacteria FEW /hpf (NONE SEEN) 04/20/17 16:48 - Physical Exam Vitals and I&O: Vital Signs Temp 97.8 F 04/24/17 07:45 Pulse 98 04/24/17 09:55 Resp 18 04/24/17 07:58 BP 110/70 04/24/17 09:55 Pulse Ox 98 04/24/17 07:58 Intake & Output 04/23/17 04/24/17 04/24/17 18:59 06:59 18:59 Intake Total 750 300 Balance 750 300 Weight (lbs) 107 lb 2 oz 95 lb 95 lb Intake: Tube Feeding 750 Other 300 Other: # Voids 3 # Bowel Movements 0 0 Active Medications: Current Medications Albuterol Sulfate (Albuterol 2.5mg/3ml Neb Ud) 1 mg HHN Q4H PRN PRN Reason: Shortness of Breath Stop: 06/19/17 20:44 Last Admin: 04/20/17 21:53 Dose: 1 mg Ascorbic Acid (Vitamin C) 500 mg PO DAILY [facility] 234 BEDS AT [facility] Stop: 06/20/17 08:59 Last Admin: 04/24/17 09:55 Dose: 500 mg Calcium/Vitamin D (Oscal W/Vitamin D) 1 tab PO DAILY [facility]S INCLUDE 234 BEDS AT THE [facility] Stop: 06/20/17 08:59 Last Admin: 04/24/17 09:55 Dose: 1 tab Docusate Sodium (Colace) 100 mg PO DAILY [facility]S INCLUDE 234 BEDS AT THE [facility] Stop: 06/20/17 08:59 Last Admin: 04/24/17 09:55 Dose: 100 mg Famotidine (Pepcid) 20 mg PO DAILY [facility]S INCLUDE 234 BEDS AT THE [facility] Stop: 06/20/17 08:59 Last Admin: 04/24/17 09:55 Dose: 20 mg Ipratropium [place] (Atrovent Neb 0.5mg/2.5ml) 0.5 mg HHN QIDRT COUNTS INCLUDE 234 BEDS AT THE [facility] Stop: 06/19/17 18:59 Last Admin: 04/24/17 07:58 Dose: 0.5 mg Metoprolol Tartrate (Lopressor) 50 mg PO BID [facility]S [facility]CLUDE 234 BEDS AT [facility] Stop: 06/20/17 08:59 Last Admin: 04/24/17 09:55 Dose: 50 mg General: congested, demented, appears older HEENT: NC/AT, PERRLA, thinning hair, poor dentition Neck: Supple, No LAD, deformity Lungs: congested, rales Cardiovascular: RRR, Normal S1, Normal S2 Abdomen: soft, non-distended, +GT Extremities: edema, excoriation, contracture, deformity, atrophy Neurological: unable to follow command Internal Medicine Assmt/Plan - Assessment Assessment: left basal density sepsis leukocytosis anemia ri elevated ammonia hematuria mod protein marleen m alnutrition mr - Plan Plan: follow up chest xray RT to suction patient continue with bronchodilators follow up labs in am if medically stable will dc tomorrow. continue ivabx continue current plan of care Nutritional Asmnt/Malnutr-PDOC - Dietary Evaluation Malnutrition Findings (Please click <Entered> for more info): Nutritional Asmnt/Malnutrition Start: 04/22/17 15: 01 Text: Status: Complete Freq: Document 04/22/17 15:01 YELENA (Rec: 04/22/17 15:28 JOSELIN [id number]) Nutritional Asmnt/Malnutrition Patient General Information Nutritional Screening High Risk Consult Diagnosis leukocytosis Pertinent Medical Hx/Surgical Hx G-tube, dementia, mental retardation, anemia Subjective Information Consult received for Anibal score 12 and avtive wound. Pt seen resting in bed during the time of visit, non-verbal noted. Verified TF Isosource 1 .5 running at 75/hr at this time. Spoke with PATRICK Ward, pt is tolerating TF well. Current Diet Order/ Nutrition Support Isosource 1.5 75ml/hr x 12hr Pertinent Medications Vit C, Valcium, Vit D, D5w, colace, culturelle, ceftriaxone Pertinent Labs 04/21 na 155H, Cl 118H, BUN 23 , Cr 0.2L, Ca 8.3L, Glu 98, Ammonia 58H Nutritional Hx/Data Height 5 ft 6 in Height (Calculated Centimeters) 167.6 Current Weight (lbs) 107 lb 1.6 oz Weight (Calculated Kilograms) 48.6 Weight (Calculated Grams) 35976.7 [place] Body Weight 142 Body Mass Index (BMI) 17.2 GI Symptoms Usual diet at home Pureed high fiber diet with nectar thick liquids, protein power x 2 scoops with juice BID at SNF. Skin Integrity/Comment: Pressure ulceration on coccyx Estimated Nutritional Goals BEE in Kcals: Using Current wt Calories/Kcals/Kg 30-35 Kcals Calculated 6227-0259 Protein: Using Current wt Protein g/k.2-1.4 Protein Calculated 59-69 Fluid: ml 8022-7846 Nutritional Problem 1. Problem Problem increased nutrition needs ( calorie and protein) Etiology increased metabolic demand for wound healing Signs/Symptoms: active wound-presure ulceration on coccyx Malnutrition Alert Protein-Calorie Malnutrition N/A Is there a minimum of two criteria No selected? Query Text:Check all the applicable criteria. A minimum of two criteria are recommended for diagnosis of either severe or non-severe malnutrition. Intervention/Recommendation Comments 1. Continue with current TF regimen. it provides 900ml total volume, 1350kcal, 61g protein, meeting 92% of lower end of calorie needs and 100% of protein needs. 2. Recomend Argenaid 1pk daily with TF to help wound healing 3. Monitor TF rate, tolerance, labs and skin integrity 4. F/U as high risk in 2-3 days, 04/24-04/25 Expected Outcomes/Goals Expected Outcomes/Goals 1. pt to meet at least 75% of nutritional needs via nutrition support with tolerance 2. wt stability, labs and skin to improve
--- NOTE | 2017-04-24 23:14 | Discharge Summary ---
DATE OF DISCHARGE: 04/24/2017 DISCHARGE DIAGNOSES: Sepsis, improved, acute UTI, leukocytosis, anemia, acute renal insufficiency, elevated ammonia, hematuria, mental retardation, and moderate protein-calorie malnutrition. HISTORY OF PRESENT ILLNESS: This is a 51-year-old male with a history of dementia, mental retardation, anemia, was admitted from nursing facility secondary to generalized weakness. The patient was diagnosed with bladder infection and blood in the urine. The patient was admitted for further management. HOSPITAL COURSE: During the hospital stay, the patient was admitted to the Med/Surg Unit. The patient was kept on empiric IV antibiotics, IV fluids for hydration as well as bronchodilators. The patient had a blood culture and it was no growth after 48 hours. The patient also had a swab for MRSA and it was negative. Per diagnostics, the patient had a chest x-ray. Impression was left basal density along the left heart border, pneumonia in this region cannot be excluded, so patient had a CT of the chest done and the impression is COPD, lung changes, bibasilar infiltrates are also noted, left greater than right with left basal consolidative changes. Short term followup is recommended to ensure resolution. The patient was noted with some congestion, so patient's IV fluids were kept TKO. After IV fluids were decreased, patient's congestion has improved. The patient did not have any fevers. For this reason, the patient is stable for discharge. CONDITION UPON DISCHARGE: Fair. DISPOSITION: The patient is going to [facility]. JOB# [id number]
== END 2017-04-24 17:33 | disposition home or self-care (01) | DRG 720 ==
LOC: ER 14:42 → MSI 19:56
PROVIDERS: ADMIT Internal Medicine; ATTEND Internal Medicine
DX: A41.9 Sepsis, unspecified organism (principal); E44.0 Moderate protein-calorie malnutrition; E87.0 Hyperosmolality and hypernatremia; J18.9 Pneumonia, unspecified organism; F03.90 Unspecified dementia, unspecified severity, without behavioral disturbance, psychotic disturbance, mood disturbance, and anxiety; G80.0 Spastic quadriplegic cerebral palsy; D64.9 Anemia, unspecified; F79 Unspecified intellectual disabilities; Z68.1 Body mass index [BMI] 19.9 or less, adult; R32 Unspecified urinary incontinence; E86.9 Volume depletion, unspecified; N30.90 Cystitis, unspecified without hematuria; R31.9 Hematuria, unspecified; N28.9 Disorder of kidney and ureter, unspecified; J44.0 Chronic obstructive pulmonary disease with (acute) lower respiratory infection; Z93.1 Gastrostomy status
CPT/HCPCS: 36415-UA; 36600-90; 71010-TC; 71250-TC; 80048-TC; 80053-TC; 81001-TC; 82140-TC; 82607-90; 82746-90; 82803-TC; 83605; 83735-TC; 84443-TC; 85025-TC; 90779; 93005; 94640; 94760; J0696; J7030; J7042; J7070; J7613; Z7502; Z7610

== ENCOUNTER 2017-05-31 08:50 | Inpatient (IN) | payer MEDICAID ==
[2017-05-31] MEDS ORDERED: Sodium Chloride 0.9% 1,000 ML IV ONE (09:31)
--- NOTE | 2017-05-31 09:39 | ED Physician Chart ---
ED Chief Complaint/HPI - Patient Information Date Seen:: 05/31/17 Time Seen:: 09:20 Chief Complaint:: cough and congestion History of Present Illness:: Patient sent here from his residential facility for cough and congestion. It was not stated for how long he has had cough and congestion and patient was unable to provide any history. Allergies:: Allergies Allergy/AdvReac Type Severity Reaction Status Date / Time No Known Allergies Allergy Verified 04/20/17 14:44 Vitals:: Vital Signs - 8 hr 05/31/17 09:10 Temp 98.6 F HR 155 RR 32 BP 104/57 O2 Sat % 92 Historian:: Medical Records Review:: Transfer documents Reviewed ED Review of Systems - Review of Systems General/Constitutional: No fever, No chills Skin: Skin lesions Head: No headache Eyes: No loss of vision ENT: No earache, Other (congestion) Neck: No neck pain Cardio Vascular: No chest pain, No palpitations, No edema Pulmonary: Cough GI: No nausea, No vomiting G/U: No dysuria Musculoskeletal: No bone or joint pain Endocrine: No polyuria, No polydipsia Psychiatric: Other (severe mental retardation) Hematopoietic: No bruising Allergic/Immuno: No urticaria Neurological: Other (spastic quadriplegia) ED Past Medical History - Past Medical History Past Medical History: HTN, Other (spastic quadriplegia; cerebral palsy; seizure disorder; status post aspiration pneumonia; status post respiratory failure; status post sepsis; history of hypernatremia; history of gastrointesti) Family History: Other (unavailable) Social History: Care Facility Surgical History: PEG/GTube Psychiatricy History: Other (severe mental retardation) Medication: Reviewed Family Medical History - Family Member Mother History Unknown: Yes ED Physical Exam - Physical Examination General/Constitutional: Awake Other Gen/Cons comments:: Chronically ill-appearing; nonresponsive; extremities contractured Head: Atraumatic Eyes: Lids, conjuctiva normal, PERRL Other Skin comments:: 4 cm of erythema surrounding G-tube stoma ENMT: External ears, nose nl Other ENMT comments:: Mouth always wide open; mucous membranes are dry Neck: No JVD, No mass Respiratory: Nl effort/Exclusion, Clear to Auscultation Cardio Vascular: RRR GI: No tenderness/rebounding/guarding, No organomegaly, No hernia, Normal BS's : No CVA tenderness Extremities: Normal digits & nails Other Neuro/Psych comments:: Nonverbal; nonresponsive ED Labs/Radiology/EKG Results - Lab Results Results: Laboratory Results - last 24 hr 05/31/17 05/31/17 09:30 09:30 WBC 4.9 RBC 4.16 L Hgb 12.3 Hct 38.6 L D MCV 92.6 MCH 29.7 MCHC Differential 32.0 RDW 16.8 Plt Count 145 L D MPV 10.9 Neutrophils % 56.2 Lymphocytes % 33.5 Monocytes % 8.2 Eosinophils % 1.8 Basophils % 0.3 Sodium 166 H* D Potassium 3.3 L Chloride 118 H Carbon Dioxide 45.2 H Anion Gap 6.1 L BUN 37 H Creatinine 0.4 L Est GFR ( Amer) > 60.0 Est GFR (Non-Af Amer) > 60.0 BUN/Creatinine Ratio 92.5 Glucose 131 H Calcium 9.1 ED Septic Shock - . Is Septic Shock (SBP<90, OR Lactate>4 mmol\L) present?: No - <6hrs of presentation: Vital Signs: Vital Signs - 8 hr 05/31/17 09:10 Temp 98.6 F HR 155 RR 32 BP 104/57 O2 Sat % 92 ED Reassessment (Disposition) - Reassessment Reassessment Condition:: Improved - Diagnosis Diagnosis:: Hyponatremic dehydration; abdominal wall cellulitis; spastic quadriplegia - Patient Disposition Admitted to:: Telemetry Spoke to:: Skip Stephens Admitting Medical Physician:: Skip Stephens Condition at Disposition:: Improved
--- NOTE | 2017-05-31 09:45 | Diagnostic Imaging Report ---
Portable chest x-ray HISTORY: Pneumonia Compared with the prior exam of April 22, 2017, there is suggestion of faint infiltrate within the left lower lobe. Pneumonia cannot be excluded. Clinical correlation is needed. No pleural fluid. The heart size is normal. IMPRESSION: 1. Suggestion of faint ill-defined infiltrate within the left lower lobe. Pneumonia cannot be excluded. Clinical correlation is needed.
[2017-05-31 09:55] LABS: EOSINOPHILE ABSOLUTE 0.1 Th/cmm (0.1-0.4); MONOCYTE ABSOLUTE 0.4 Th/cmm (0.3-1.0)
[2017-05-31 10:01] LABS: HEMOGLOBIN 12.3 gm/dL (12-16); MEAN CELL VOLUME 92.6 fl (80-99); MEAN CORPUSCULAR HEMOGLOBIN 29.7 pg (26.0-30.0); MEAN PLATELET VOLUME 10.9 fl; RED BLOOD COUNT 4.16 Mil/cmm (4.30-5.70); RED CELL DISTRIBUTION WIDTH 16.8 % (11.5-20.0); WHITE BLOOD COUNT 4.9 Th/cmm (4.8-10.8)
[2017-05-31 10:02] LABS: % BASOPHILS 0.3 % (0.0-2.0); % EOSINOPHILS 1.8 % (0.0-5.0); % LYMPHOCYTES 33.5 % (20.0-50.0); % MONOCYTES 8.2 % (2.0-10.0); % NEUTROPHILS 56.2 % (40.0-80.0); HEMATOCRIT 38.6 % (41.0-60); LYMPHOCYTE ABSOLUTE 1.6 Th/cmm (1.5-3.0); NEUTROPHILE ABSOLUTE 2.8 Th/cmm (1.8-8.0); PLATELET COUNT 145 Th/cmm (150-400)
[2017-05-31 10:16] LABS: ANION GAP 6.1 (7.0-16.0); BUN - UREA NITROGEN 37 mg/dL (7-25); CALCIUM SERUM 9.1 mg/dL (8.6-10.3); CHLORIDE 118 mEq/L (98-107); CREATININE - SERUM 0.4 mg/dL (0.7-1.3); GFR AFRICAN-AMERICAN > 60.0 ml/min (>90); GFR NON AFRICAN-AMERICAN > 60.0 ml/min; GLUCOSE 131 mg/dL (70-105); POTASSIUM SERUM 3.3 mEq/L (3.5-5.1)
[2017-05-31 10:23] LABS: CARBON DIOXIDE 45.2 mEq/L (21.0-31.0); SODIUM SERUM 166 mEq/L (136-145)
[2017-05-31] MEDS ORDERED: Potassium Chloride Elixir 20 mEq /15 mL UDC GT ONE (10:40)
[2017-05-31] MEDS ORDERED: 0.45% NS w/20 mEq KCl 1,000 ML IV SCH (10:42)
[2017-05-31] MEDS ORDERED: Potassium Chloride Elixir 20 mEq /15 mL UDC ONE (11:14)
[2017-05-31] MEDS ORDERED: ACETAMINOPHEN 325 MG GT PRN (13:40)
[2017-05-31] MEDS ORDERED: Fleet Enema 135 mL RC PRN (13:40)
[2017-05-31] MEDS ORDERED: guaiFENesin 200 MG/10 ML UDC PO PRN (13:42)
[2017-05-31 14:52] LABS: URINE MICROSCOPIC INDICATED? YES; URINE SOURCE CATH
[2017-05-31 14:57] LABS: URINE BILIRUBIN NEGATIVE (NEGATIVE); URINE BLOOD MODERATE (NEGATIVE); URINE GLUCOSE (UA) NEGATIVE (NEGATIVE); URINE KETONE NEGATIVE (NEGATIVE); URINE LEUKOCYTE ESTERASE NEGATIVE (NEGATIVE); URINE NITRATE NEGATIVE (NEGATIVE); URINE PH 8.5 (4.6 - 8.0); URINE PROTEIN 30 mg/dL (NEGATIVE); URINE UROBILINOGEN 0.2 E.U./dL (0.2 - 1.0)
[2017-05-31 15:08] LABS: URINE CLARITY CLOUDY (CLEAR); URINE COLOR YELLOW
[2017-05-31 15:10] LABS: URINE RBC >100 /hpf (0-5)
[2017-05-31 15:11] LABS: URINE BACTERIA NONE SEEN /hpf (NONE SEEN); URINE EPITHELIAL CELLS NONE SEEN /lpf (FEW)
[2017-05-31] MEDS ORDERED: Albuterol Nebulizer 2.5mg/3mL HHN ONE (15:18)
[2017-05-31] MEDS ORDERED: Ipratropium Neb 0.5 mg/2.5 mL UD HHN ONE (15:18)
[2017-05-31] MEDS: Ipratropium Neb 0.5 mg/2.5 mL UD IH SCH ×2 (15:19→21:09)
[2017-05-31] MEDS: Albuterol Nebulizer 2.5mg/3mL HHN SCH ×2 (15:19→21:09)
[2017-05-31 16:50] VITALS: BP 96/57
[2017-05-31] MEDS ORDERED: Non-Formulary Item 1 EA (Non-Formulary Item [Non-Formulary Item] 1 EA) GT SCH (17:00)
--- NOTE | 2017-05-31 17:09 | History & Physical ---
ADMIT DATE: 05/31/2017 CHIEF COMPLAINT: Cough and congestion. HISTORY OF PRESENT ILLNESS: This is a 52-year-old male who is a resident of [facility] who is brought here to [facility] [place] due to 1-day history of cough and congestion. The patient did not have any fevers at the intermediate. For this reason, the patient will be admitted to the med/surg unit for further evaluation. 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 FAMILY HISTORY: Noncontributory. SOCIAL HISTORY: The patient is a intermediate resident, requiring 24-hour nursing care. PAST SURGICAL HISTORY: PEG. REVIEW OF SYSTEMS: Unable to obtain due to the patient's mental status. The patient is nonverbal. PHYSICAL EXAMINATION: GENERAL: The patient is awake, nonverbal, appears thin. VITAL SIGNS: Temperature 101.7, heart rate of 145, blood pressure 102/62, O2 of 93%. HEENT: Head is normocephalic, atraumatic. NECK: Supple. No mass. LUNGS: Rhonchi bilaterally. CARDIOVASCULAR: Regular rate and rhythm. ABDOMEN: Soft, nontender. LABORATORY DATA: WBC 4.9, H and H 12.3 and 38.6, and platelet of 145. Sodium is 166, potassium 3.3, chloride 118, BUN 37, creatinine 0.4 and whole lactic acid of 3.01. DIAGNOSTIC DATA: The patient had a chest x-ray done and the impression is suggestion of faint ill-defined infiltrate within the left lower lobe, pneumonia cannot be excluded. Clinical correlation is noted. ASSESSMENT: 1. Lactic acidosis. 2. Possible sepsis. 3. Pneumonia. 4. Leukocytosis. 5. Hypokalemia. 6. Acute renal insufficiency. 7. Spastic quadriplegia. 8. Seizures. PLAN: The patient is to be admitted to the telemetry unit. We will get the patient aggressive IV fluids for hydration. We will monitor the patient's lactic acid. We will keep place the patient on IV antibiotics of Maxipime as well as Solu-Medrol and bronchodilators. We will get followup labs for tomorrow morning. We will await for the patient's urinalysis, We will continue to follow this patient. [facility]# [id number]
[2017-05-31] MEDS: Dextrose 5% 1,000 ML IV SCH (17:45)
[2017-05-31] MEDS ORDERED: methylPREDNISolone SS 40 mg Vial ONE (21:51)
[2017-05-31] MEDS: methylPREDNISolone SS 40 mg Vial IVP SCH (21:54)
[2017-05-31] MEDS: Diltiazem 5 mg/mL 5mL Vial IVP PRN (21:55)
[2017-06-01] MEDS: Dextrose 5% 1,000 ML IV SCH ×3 (01:36→18:10)
[2017-06-01] MEDS: methylPREDNISolone SS 40 mg Vial IVP SCH ×3 (04:33→20:35)
[2017-06-01 06:30] LABS: LYMPHOCYTE ABSOLUTE 0.4 Th/cmm (1.5-3.0); MEAN CELL VOLUME 92.3 fl (80-99); MEAN PLATELET VOLUME 11.1 fl; MONOCYTE ABSOLUTE 0.1 Th/cmm (0.3-1.0)
[2017-06-01 07:04] LABS: ALB/GLOB RATIO 1.1 (1.0-1.8); ALBUMIN 2.7 gm/dL (4.2-5.5); ALKALINE PHOSPHATASE 44 U/L (34-104); BILIRUBIN,TOTAL 0.5 mg/dL (0.3-1.0); BUN - UREA NITROGEN 29 mg/dL (7-25); CALCIUM SERUM 8.4 mg/dL (8.6-10.3); CARBON DIOXIDE 33.1 mEq/L (21.0-31.0); CHLORIDE 120 mEq/L (98-107); CREATININE - SERUM 0.3 mg/dL (0.7-1.3); GFR AFRICAN-AMERICAN > 60.0 ml/min (>90); GFR NON AFRICAN-AMERICAN > 60.0 ml/min; MAGNESIUM 2.8 mg/dL (1.9-2.7); POTASSIUM SERUM 4.1 mEq/L (3.5-5.1); SGOT 18 U/L (13-39); SGPT/ALT 22 U/L (7-52); TOTAL PROTEIN,SERUM 5.1 gm/dL (6.0-8.3)
[2017-06-01 07:16] LABS: GLUCOSE 242 mg/dL (70-105)
[2017-06-01 07:19] LABS: SODIUM SERUM 160 mEq/L (136-145)
[2017-06-01 07:46] LABS: % EOSINOPHILS 0.3 % (0.0-5.0); % LYMPHOCYTES 12.6 % (20.0-50.0); % MONOCYTES 2.3 % (2.0-10.0); % NEUTROPHILS 84.8 % (40.0-80.0); HEMATOCRIT 31.4 % (41.0-60); HEMOGLOBIN 10.3 gm/dL (12-16); MEAN CORPUSCULAR HEMOGLOBIN 30.1 pg (26.0-30.0); MEAN CORPUSCULAR HGB CONC 32.6 pg (28.0-36.0); NEUTROPHILE ABSOLUTE 2.9 Th/cmm (1.8-8.0); PLATELET COUNT 132 Th/cmm (150-400); RED CELL DISTRIBUTION WIDTH 16.6 % (11.5-20.0)
[2017-06-01 07:48] LABS: WHITE BLOOD COUNT 3.4 Th/cmm (4.8-10.8)
--- NOTE | 2017-06-01 08:03 | Diagnostic Imaging Report ---
CHEST X-RAY: AP view INDICATION: Intubation, status post CODE BLUE COMPARISON: Chest x-ray 05/31/2017 at 9:37 AM FINDINGS: ET tube is in place with tip 5.8 cm above the reji. Low lung volumes are seen with developing left lower lung zone infiltrates. Right basal atelectatic changes are noted. Heart size is normal. No evidence of a pneumothorax. IMPRESSION: Interval intubation with ET tube tip 5.8 cm above the reji. Low lung volumes with interval development of left lower lung zone infiltrate/pneumonia. Findings may be related to aspiration.
[2017-06-01] MEDS: Albuterol Nebulizer 2.5mg/3mL HHN SCH ×4 (08:33→19:03)
[2017-06-01] MEDS: Ipratropium Neb 0.5 mg/2.5 mL UD HHN SCH ×3 (08:34→19:03)
[2017-06-01] MEDS ORDERED: Non-Formulary Item 1 EA (Ascorbic Acid 500 MG) GT SCH (09:00)
[2017-06-01] MEDS ORDERED: FERROUS FUM GT SCH (09:00)
[2017-06-01] MEDS ORDERED: CHOLECALCIFEROL 400 UNIT GT SCH (09:00)
[2017-06-01] MEDS ORDERED: [UNRECOGNIZED DRUG - OTHER] GT SCH (09:00)
[2017-06-01] MEDS ORDERED: MULTIVIT GT SCH (09:00)
[2017-06-01] MEDS ORDERED: MINERALS GT SCH (09:00)
[2017-06-01] MEDS: Multivitamin Tab GT SCH (09:06)
[2017-06-01] MEDS: POLYETHYLENE GLYCOL 3350 17 GM PACK GT SCH (09:07)
[2017-06-01 09:12] LABS: ALLEN TEST YES
[2017-06-01 10:40] LABS: A1C % 5.1 % (4.0-6.0)
--- NOTE | 2017-06-01 12:08 | Internal Medicine Prog Note ---
Internal Medicine Subjective - Subjective Service Date: 06/01/17 (patient now in the ICU patient coded at 0645 was found unresponsive with no respirations, patient orally tubated and placed on ventilator by ER physician. Patient seen and examined, obtunded, patients parents at [facility] and updates given regarding patients condition and treatments , both understood and verbalized.) Patient seen and examined:: with staff Patient is:: other (obtunded) Per staff patient has:: tolerating meds Internal Medicine Objective - Results Result Diagrams: 06/01/17 05:30 06/01/17 05:30 Recent Labs: Laboratory Last Values WBC 3.4 Th/cmm (4.8-10.8) L D 06/01/17 05:30 RBC 3.40 Mil/cmm (4.30-5.70) L 06/01/17 05:30 Hgb 10.3 gm/dL (12-16) L 06/01/17 05:30 Hct 31.4 % (41.0-60) L D 06/01/17 05:30 MCV 92.3 fl (80-99) 06/01/17 05:30 MCH 30.1 pg (26.0-30.0) H 06/01/17 05:30 MCHC Differential 32.6 pg (28.0-36.0) 06/01/17 05:30 RDW 16.6 % (11.5-20.0) 06/01/17 05:30 Plt Count 132 Th/cmm (150-400) L 06/01/17 05:30 MPV 11.1 fl 06/01/17 05:30 Neutrophils % 84.8 % (40.0-80.0) H 06/01/17 05:30 Lymphocytes % 12.6 % (20.0-50.0) L 06/01/17 05:30 Monocytes % 2.3 % (2.0-10.0) 06/01/17 05:30 Eosinophils % 0.3 % (0.0-5.0) 06/01/17 05:30 Basophils % 0.0 % (0.0-2.0) 06/01/17 05:30 Specimen Source Arterial 06/01/17 09:00 Sample Site Left Radial 06/01/17 09:00 pH 7.60 (7.35-7.45) H* 06/01/17 09:00 pCO2 40.0 mmHg (35.0-45.0) 06/01/17 09:00 pO2 132.0 mmHg (80.0-100.0) H 06/01/17 09:00 HCO3 37.6 mEq/L (20.0-26.0) H 06/01/17 09:00 Base Excess 16.2 mEq/L (-3.0-3.0) H 06/01/17 09:00 O2 Saturation 99.0 % (92.0-100.0) 06/01/17 09:00 Endy Test YES 06/01/17 09:00 Vent Rate 14 06/01/17 09:00 Inspired O2 60 06/01/17 09:00 Tidal Volume 500 06/01/17 09:00 PEEP 0 06/01/17 09:00 Pressure (ins/psv/peep) NA 06/01/17 09:00 Critical Value E.BABCOCK 06/01/17 09:00 Sodium 160 mEq/L (136-145) H* 06/01/17 05:30 Potassium 4.1 mEq/L (3.5-5.1) 06/01/17 05:30 Chloride 120 mEq/L (98-107) H 06/01/17 05:30 Carbon Dioxide 33.1 mEq/L (21.0-31.0) H 06/01/17 05:30 Anion Gap 11.0 (7.0-16.0) 06/01/17 05:30 BUN 29 mg/dL (7-25) H 06/01/17 05:30 Creatinine 0.3 mg/dL (0.7-1.3) L 06/01/17 05:30 Est GFR ( Amer) > 60.0 ml/min (>90) 06/01/17 05:30 Est GFR (Non-Af Amer) > 60.0 ml/min 06/01/17 05:30 BUN/Creatinine Ratio 96.7 06/01/17 05:30 Glucose 242 mg/dL (70-105) H D 06/01/17 05:30 POC Glucose 213 MG/DL (70 - 105) H 06/01/17 06:53 Hemoglobin A1c % 5.1 % (4.0-6.0) 06/01/17 05:30 Whole Bld Lactic Acid 2.02 mmol/L (0.60-1.99) H* 05/31/17 12:35 Calcium 8.4 mg/dL (8.6-10.3) L 06/01/17 05:30 Magnesium 2.8 mg/dL (1.9-2.7) H 06/01/17 05:30 Total Bilirubin 0.5 mg/dL (0.3-1.0) 06/01/17 05:30 AST 18 U/L (13-39) 06/01/17 05:30 ALT 22 U/L (7-52) 06/01/17 05:30 Alkaline Phosphatase 44 U/L (34-104) 06/01/17 05:30 B-Natriuretic Peptide 61.2 pg/mL (5.0-100.0) 06/01/17 05:30 Total Protein 5.1 gm/dL (6.0-8.3) L 06/01/17 05:30 Albumin 2.7 gm/dL (4.2-5.5) L 06/01/17 05:30 Globulin 2.4 gm/dL 06/01/17 05:30 Albumin/Globulin Ratio 1.1 (1.0-1.8) 06/01/17 05:30 TSH 0.72 uIU/ml (0.34-5.60) 06/01/17 05:30 Urine Source CATH 05/31/17 12:35 Urine Color YELLOW 05/31/17 12:35 Urine Clarity CLOUDY (CLEAR) 05/31/17 12:35 Urine pH 8.5 (4.6 - 8.0) 05/31/17 12:35 Ur Specific Dows 1.010 (1.005-1.030) 05/31/17 12:35 Urine Protein 30 mg/dL (NEGATIVE) H 05/31/17 12:35 Urine Glucose (UA) NEGATIVE mg/dL (NEGATIVE) 05/31/17 12:35 Urine Ketones NEGATIVE mg/dL (NEGATIVE) 05/31/17 12:35 Urine Blood MODERATE (NEGATIVE) H 05/31/17 12:35 Urine Nitrate NEGATIVE (NEGATIVE) 05/31/17 12:35 Urine Bilirubin NEGATIVE (NEGATIVE) 05/31/17 12:35 Urine Urobilinogen 0.2 E.U./dL (0.2 - 1.0) 05/31/17 12:35 Ur Leukocyte Esterase NEGATIVE (NEGATIVE) 05/31/17 12:35 Urine RBC >100 /hpf (0-5) H 05/31/17 12:35 Urine WBC 2-5 /hpf (0-5) H 05/31/17 12:35 Ur Epithelial Cells NONE SEEN /lpf (FEW) 05/31/17 12:35 Urine Bacteria NONE SEEN /hpf (NONE SEEN) 05/31/17 12:35 - Physical Exam Vitals and I&O: Vital Signs Temp 97 F 06/01/17 09:40 Pulse 85 06/01/17 11:40 Resp 10 06/01/17 11:40 BP 93/53 06/01/17 11:40 Pulse Ox 100 06/01/17 11:40 Intake & Output 05/31/17 06/01/17 06/01/17 18:59 06:59 18:59 Intake Total 50 981.25 Output Total 70 Balance -20 981.25 Weight (lbs) 105 lb 11.2 oz 105 lb 8 oz Intake: Intake, IV Amount 50 981.25 Cefepime 1 gm In Dextrose 50 5% 50 ml @ 100 mls/hr IV Q12H [facility] Rx#:[id number] Dextrose 5% 1,000 ml @ 981.25 125 mls/hr IV .Q8H [facility] Rx #:[id number] Output: Urine 70 Other: # Bowel Movements 0 Stool Characteristics Soft Formed Active Medications: Current Medications Acetaminophen (Tylenol 650mg Supp) 650 mg RC Q4HR PRN PRN Reason: FEVER >100.1 Stop: 07/30/17 13:39 Acetaminophen (Tylenol) 325 mg PO Q6H PRN PRN Reason: PAIN/FEVER Stop: 07/30/17 16:47 Albuterol Sulfate (Albuterol 2.5mg/3ml Neb Ud) 1.25 mg HHN QIDRT [facility] Stop: 07/30/17 14:59 Last Admin: 06/01/17 08:33 Dose: 1.25 mg Ascorbic Acid (Vitamin C) 500 mg GT DAILY [facility] Stop: 07/31/17 08:59 Last Admin: 06/01/17 09:06 Dose: 500 mg Bisacodyl (Dulcolax 10 Mg Supp) 10 mg RC Q72HR PRN PRN Reason: Constipation Stop: 07/30/17 13:39 [place] Oil/Turkish Balsam/Trypsin (Venelex) 1 appl TP BID [facility] Stop: 07/31/17 16:59 Chlorhexidine Gluconate (Peridex) 15 ml MM 0800,2000 [facility] Stop: 07/31/17 19:59 Cholecalciferol (Vitamin D3) 500 iu PO DAILY [facility] Stop: 07/31/17 08:59 Last Admin: 06/01/17 09:06 Dose: 500 iu Diltiazem HCl (Cardizem) 20 mg IVP Q4H PRN PRN Reason: HR Greater than 130 per min Stop: 07/30/17 13:40 Last Admin: 05/31/17 21:55 Dose: 20 mg Famotidine (Pepcid) 20 mg GT BID [facility] Stop: 07/30/17 16:59 Last Admin: 06/01/17 09:06 Dose: 20 mg Guaifenesin (Robitussin) 200 mg PO Q4HR PRN PRN Reason: Cough or Congestion Stop: 07/30/17 13:41 Cefepime HCl 1 gm/ Dextrose 50 mls @ 100 mls/hr IV Q12H [facility] Stop: 07/30/17 13:44 Last Admin: 06/01/17 01:33 Dose: 100 mls/hr Dextrose (D5w) 1,000 mls @ 125 mls/hr IV .Q8H [facility] Stop: 07/30/17 13:44 Last Admin: 06/01/17 01:36 Dose: 125 mls/hr Vancomycin HCl 1 gm/ Sodium (Chloride) 250 mls @ 165 mls/hr IV Q12H [facility] Stop: 07/30/17 21:59 Last Admin: 05/31/17 22:05 Dose: 165 mls/hr Influenza Virus Vaccine (Fluarix) 0.5 ml IM .ONCE ONE Stop: 06/01/17 17:12 Ipratropium Sanderson (Atrovent Neb 0.5mg/2.5ml) 0.5 mg HHN QID [facility] Stop: 07/30/17 16:59 Last Admin: 06/01/17 08:34 Dose: 0.5 mg Ipratropium [place]erson (Atrovent Neb 0.5mg/2.5ml) 0.5 mg IH QIDRT [facility] Stop: 07/30/17 14:59 Last Admin: 05/31/17 21:09 Dose: 0.5 mg Lorazepam (Ativan) 1 mg IV Q4H PRN; Protocol PRN Reason: Seizure Stop: 07/30/17 13:40 Methylprednisolone Sodium Succinate (Solu-Medrol) 80 mg IVP Q8HR [facility] Stop: 07/30/17 20:59 Last Admin: 06/01/17 04:33 Dose: Not Given Metoprolol Tartrate (Lopressor) 25 mg GT BID [facility] Stop: 07/30/17 16:59 Last Admin: 06/01/17 09:06 Dose: 25 mg Miscellaneous (Vancomycin Iv Per Pharmacy) 1 ea MC PRN [facility] Stop: 07/30/17 13:44 Multivitamins/Vitamin C (Theragran) 1 tab GT DAILY [facility] Stop: 07/31/17 08:59 Last Admin: 06/01/17 09:06 Dose: 1 tab Ondansetron HCl (Zofran) 4 mg IV Q8H PRN PRN Reason: Nausea / Vomiting Stop: 07/30/17 13:41 Polyethylene Glycol (Miralax) 17 gm GT MWF [facility] Stop: 07/31/17 08:59 Last Admin: 06/01/17 09:07 Dose: 17 gm Sodium Phosphate (Fleet Enema) 133 ml RC DAILY PRN PRN Reason: Constipation Stop: 07/30/17 13:39 General: weak, obtunded HEENT: NC/AT, PERRLA Lungs: ronchi Cardiovascular: without murmur Abdomen: soft, non-tender, non-distended, positive bowel sound Neurological: unable to follow command Internal Medicine Assmt/Plan - Assessment Assessment: S/p cardiopulmonary arrest, now intubated on vent lactic acidosis Acute Respiratory Failure Sepsis PNA leukocytosis hypokalemia acute renal insufficiency spastic quadriplegia seizures - Plan Plan: sputum cx vent support inhalation treatments empiric ivantibiotics pulmo follow up continue current plan of care
[2017-06-01] MEDS ORDERED: VTE Chemical Prophylaxis Screen/Admission MC PRN (14:01)
[2017-06-01] MEDS: Ipratropium Neb 0.5 mg/2.5 mL UD IH SCH (15:33)
[2017-06-01] MEDS ORDERED: Probiotic Screen MC PRN (16:03)
[2017-06-01] MEDS ORDERED: Dextrose 5% 1,000 ML IV SCH (16:47)
[2017-06-01] MEDS ORDERED: Influenza Vaccine 0.5 mL Syr IM ONE (17:11)
[2017-06-01] MEDS: Venelex 60gm Tube TP SCH (18:00)
[2017-06-01] MEDS: Chlorhexidine Gluconate 0.12% 15mL Mouthwash MM SCH (20:36)
[2017-06-02] MEDS: Dextrose 5% 1,000 ML IV SCH ×3 (03:00→19:51)
[2017-06-02] MEDS: methylPREDNISolone SS 40 mg Vial IVP SCH ×3 (04:37→20:48)
[2017-06-02 05:23] LABS: % BASOPHILS 0.1 % (0.0-2.0); % EOSINOPHILS 0.2 % (0.0-5.0); % LYMPHOCYTES 15.9 % (20.0-50.0); % MONOCYTES 5.3 % (2.0-10.0); % NEUTROPHILS 78.5 % (40.0-80.0); LYMPHOCYTE ABSOLUTE 0.6 Th/cmm (1.5-3.0); MEAN CELL VOLUME 89.3 fl (80-99); MEAN CORPUSCULAR HEMOGLOBIN 31.2 pg (26.0-30.0); MEAN CORPUSCULAR HGB CONC 34.9 pg (28.0-36.0); MEAN PLATELET VOLUME 11.3 fl; MONOCYTE ABSOLUTE 0.2 Th/cmm (0.3-1.0); NEUTROPHILE ABSOLUTE 3.2 Th/cmm (1.8-8.0); RED BLOOD COUNT 2.31 Mil/cmm (4.30-5.70); RED CELL DISTRIBUTION WIDTH 15.4 % (11.5-20.0)
[2017-06-02 05:36] LABS: HEMATOCRIT 20.6 % (41.0-60); HEMOGLOBIN 7.2 gm/dL (12-16)
[2017-06-02 05:37] LABS: BUN - UREA NITROGEN 25 mg/dL (7-25); CALCIUM SERUM 7.7 mg/dL (8.6-10.3); CHLORIDE 111 mEq/L (98-107); CREATININE - SERUM 0.3 mg/dL (0.7-1.3); GFR AFRICAN-AMERICAN > 60.0 ml/min (>90); GFR NON AFRICAN-AMERICAN > 60.0 ml/min; GLUCOSE 210 mg/dL (70-105); PLATELET COUNT 82 Th/cmm (150-400); POTASSIUM SERUM 3.2 mEq/L (3.5-5.1); SODIUM SERUM 146 mEq/L (136-145)
[2017-06-02 06:45] LABS: ANION GAP 11.5 (7.0-16.0); CARBON DIOXIDE 26.7 mEq/L (21.0-31.0)
[2017-06-02] MEDS: Ipratropium Neb 0.5 mg/2.5 mL UD IH SCH ×3 (07:27→18:51)
[2017-06-02] MEDS: Albuterol Nebulizer 2.5mg/3mL HHN SCH ×4 (07:27→18:49)
[2017-06-02] MEDS: Chlorhexidine Gluconate 0.12% 15mL Mouthwash MM SCH ×2 (08:41→19:30)
[2017-06-02] MEDS: Multivitamin Tab GT SCH (08:41)
[2017-06-02 09:22] LABS: ALLEN TEST PASS
--- NOTE | 2017-06-02 09:55 | Diagnostic Imaging Report ---
CHEST X-RAY: AP view INDICATION: Shortness of breath COMPARISON: 06/01/2017 FINDINGS: ET tube is seen with tip 4.5 cm above the Larisa. Low lung volume are seen with slight improvement in left basal infiltrates. Bibasal atelectasis is noted. Heart size is normal. Skin folds are seen along the left hemithorax. No gross pneumothorax is identified. IMPRESSION: Mild improvement in left basal infiltrates. Persistent low lung lungs and bibasal atelectasis is noted ET tube with tip 4.5 cm above the Larisa.
[2017-06-02] MEDS: Venelex 60gm Tube TP SCH ×2 (10:00→17:00)
[2017-06-02] MEDS: Ipratropium Neb 0.5 mg/2.5 mL UD HHN SCH (15:09)
--- NOTE | 2017-06-02 15:27 | Consultation ---
DATE OF CONSULTATION: 06/01/[address] Stephens. HISTORY OF PRESENT ILLNESS: This is a 52-year-old mentally retarded patient from [place] was brought to the hospital because of shortness of breath, cough with expectoration, fever, possible pneumonia, and the patient had respiratory arrest. The patient is intubated. The patient has hypotension. The patient is given fluid challenge, hence Cardiology consult requested. PAST MEDICAL HISTORY: Dementia, seizure disorder, cerebral palsy, mental retardation, and hypernatremia. FAMILY HISTORY: Unremarkable. SOCIAL HISTORY: No history of smoking, alcohol abuse. ALLERGIES: No known allergies. PHYSICAL EXAMINATION: VITAL SIGNS: Blood pressure 90 systolic, pulse 100, respiration on ventilator. HEAD: Normocephalic. No lumps or bumps. EYES: Pupils equal, reactive to light. Fundi show AV nicking. Sclerae white, conjunctivae pink. NECK: Carotid 2+. Normal upstroke. JVD flat. Thyroid not palpable. Lymph nodes not palpable. CHEST: Shows increased AP diameter. No kyphosis, scoliosis. LUNGS: Bilateral bronchovesicular breath sounds. Occasional wheeze. No rales. HEART: PMI fifth intercostal space with lateral to midclavicular line. S1, S2. No S3, S4, soft systolic murmur. ABDOMEN: Soft. Liver, spleen not palpable. No organomegaly. Bowel sounds active. NEUROLOGIC: Cerebral palsy. CLINICAL IMPRESSION: Acute respiratory failure, on ventilator, hypotension, aspiration pneumonia, dementia, anemia, iron deficiency, mental retardation, cerebral palsy, seizure disorder, hypernatremia, and lactic acidosis. PLAN: The patient to get fluid challenge IV antibiotics. If necessary, we will start the patient on Levophed. Also get an echocardiogram for left ventricular function. JOB# [id number]
--- NOTE | 2017-06-02 17:42 | Internal Medicine Prog Note ---
Internal Medicine Subjective - Subjective Patient seen and examined:: with staff, chart reviewed, other (ett) Patient is:: asleep, non-verbal, non-interactive, in bed, other (obtunded) Patient Complaints of:: congestion Per staff patient has:: tolerating meds Internal Medicine Objective - Results Result Diagrams: 06/02/17 04:35 06/02/17 04:35 Recent Labs: Laboratory Last Values WBC 4.0 Th/cmm (4.8-10.8) L 06/02/17 04:35 RBC 2.31 Mil/cmm (4.30-5.70) L 06/02/17 04:35 Hgb 7.2 gm/dL (12-16) L* D 06/02/17 04:35 Hct 20.6 % (41.0-60) L* D 06/02/17 04:35 MCV 89.3 fl (80-99) 06/02/17 04:35 MCH 31.2 pg (26.0-30.0) H 06/02/17 04:35 MCHC Differential 34.9 pg (28.0-36.0) 06/02/17 04:35 RDW 15.4 % (11.5-20.0) 06/02/17 04:35 Plt Count 82 Th/cmm (150-400) L D 06/02/17 04:35 MPV 11.3 fl 06/02/17 04:35 Neutrophils % 78.5 % (40.0-80.0) 06/02/17 04:35 Lymphocytes % 15.9 % (20.0-50.0) L 06/02/17 04:35 Monocytes % 5.3 % (2.0-10.0) 06/02/17 04:35 Eosinophils % 0.2 % (0.0-5.0) 06/02/17 04:35 Basophils % 0.1 % (0.0-2.0) 06/02/17 04:35 Specimen Source Arterial 06/02/17 09:10 Sample Site Right Radial 06/02/17 09:10 pH 7.50 (7.35-7.45) H 06/02/17 09:10 pCO2 39.0 mmHg (35.0-45.0) 06/02/17 09:10 pO2 72.0 mmHg (80.0-100.0) L 06/02/17 09:10 HCO3 30.1 mEq/L (20.0-26.0) H 06/02/17 09:10 Base Excess 6.7 mEq/L (-3.0-3.0) H 06/02/17 09:10 O2 Saturation 96.0 % (92.0-100.0) 06/02/17 09:10 Endy Test PASS 06/02/17 09:10 Vent Rate 10 06/02/17 09:10 Inspired O2 30 06/02/17 09:10 Tidal Volume 500 06/02/17 09:10 PEEP 0 06/01/17 09:00 Pressure (ins/psv/peep) NA 06/01/17 09:00 Critical Value PW 06/02/17 09:10 Sodium 146 mEq/L (136-145) H 06/02/17 04:35 Potassium 3.2 mEq/L (3.5-5.1) L 06/02/17 04:35 Chloride 111 mEq/L (98-107) H 06/02/17 04:35 Carbon Dioxide 26.7 mEq/L (21.0-31.0) 06/02/17 04:35 Anion Gap 11.5 (7.0-16.0) 06/02/17 04:35 BUN 25 mg/dL (7-25) 06/02/17 04:35 Creatinine 0.3 mg/dL (0.7-1.3) L 06/02/17 04:35 Est GFR ( Amer) > 60.0 ml/min (>90) 06/02/17 04:35 Est GFR (Non-Af Amer) > 60.0 ml/min 06/02/17 04:35 BUN/Creatinine Ratio 83.3 06/02/17 04:35 Glucose 210 mg/dL (70-105) H 06/02/17 04:35 POC Glucose 213 MG/DL (70 - 105) H 06/01/17 06:53 Hemoglobin A1c % 5.1 % (4.0-6.0) 06/01/17 05:30 Whole Bld Lactic Acid 3.60 mmol/L (0.60-1.99) H* 06/01/17 20:50 Calcium 7.7 mg/dL (8.6-10.3) L 06/02/17 04:35 Magnesium 2.8 mg/dL (1.9-2.7) H 06/01/17 05:30 Total Bilirubin 0.5 mg/dL (0.3-1.0) 06/01/17 05:30 AST 18 U/L (13-39) 06/01/17 05:30 ALT 22 U/L (7-52) 06/01/17 05:30 Alkaline Phosphatase 44 U/L (34-104) 06/01/17 05:30 B-Natriuretic Peptide 61.2 pg/mL (5.0-100.0) 06/01/17 05:30 Total Protein 5.1 gm/dL (6.0-8.3) L 06/01/17 05:30 Albumin 2.7 gm/dL (4.2-5.5) L 06/01/17 05:30 Globulin 2.4 gm/dL 06/01/17 05:30 Albumin/Globulin Ratio 1.1 (1.0-1.8) 06/01/17 05:30 TSH 0.72 uIU/ml (0.34-5.60) 06/01/17 05:30 Urine Source CATH 05/31/17 12:35 Urine Color YELLOW 05/31/17 12:35 Urine Clarity CLOUDY (CLEAR) 05/31/17 12:35 Urine pH 8.5 (4.6 - 8.0) 05/31/17 12:35 Ur Specific [place] 1.010 (1.005-1.030) 05/31/17 12:35 Urine Protein 30 mg/dL (NEGATIVE) H 05/31/17 12:35 Urine Glucose (UA) NEGATIVE mg/dL (NEGATIVE) 05/31/17 12:35 Urine Ketones NEGATIVE mg/dL (NEGATIVE) 05/31/17 12:35 Urine Blood MODERATE (NEGATIVE) H 05/31/17 12:35 Urine Nitrate NEGATIVE (NEGATIVE) 05/31/17 12:35 Urine Bilirubin NEGATIVE (NEGATIVE) 05/31/17 12:35 Urine Urobilinogen 0.2 E.U./dL (0.2 - 1.0) 05/31/17 12:35 Ur Leukocyte Esterase NEGATIVE (NEGATIVE) 05/31/17 12:35 Urine RBC >100 /hpf (0-5) H 05/31/17 12:35 Urine WBC 2-5 /hpf (0-5) H 05/31/17 12:35 Ur Epithelial Cells NONE SEEN /lpf (FEW) 05/31/17 12:35 Urine Bacteria NONE SEEN /hpf (NONE SEEN) 05/31/17 12:35 Vancomycin Trough 32.7 ug/mL (10-20) H 06/02/17 04:35 Blood Type O POSITIVE 06/02/17 11:40 Antibody Screen NEGATIVE 06/02/17 11:40 Crossmatch See Detail 06/02/17 11:40 - Physical Exam Vitals and I&O: Vital Signs Temp 97.8 F 06/02/17 13:00 Pulse 95 06/02/17 17:19 Resp 16 06/02/17 16:00 BP 98/52 06/02/17 16:00 Pulse Ox 99 06/02/17 17:19 Intake & Output 06/01/17 06/02/17 06/02/17 18:59 06:59 18:59 Intake Total 2019.333 2850 1100 Output Total 800 700 Balance 8328.516 9604 1100 Weight (lbs) 47.854 kg 47.627 kg Intake: Intake, IV Amount 2245.973 2966 1100 Dextrose 5% 1,000 ml @ 1360.766 3506 1000 125 mls/hr IV .Q8H FERNANDO Rx #:[id number] Dextrose 5% 1,000 ml @ 1000 Wide Open IV .Q0M FERNANDO Rx# :[id number] Piperacillin Sodium/ 100 200 100 Tazobact 4.5 gm In Sodium Chloride 0.9% 100 ml @ 100 mls/hr IV Q8HR FERNANDO Rx #:[id number] Vancomycin HCl 1 gm In 250 250 Sodium Chloride 0.9% 250 ml @ 165 mls/hr IV Q12H FERNANDO Rx#:[id number] Tube Feeding 261 Other 400 Output: Urine 800 700 Other: # Bowel Movements 0 Stool Characteristics Soft Active Medications: Current Medications Acetaminophen (Tylenol 650mg Supp) 650 mg RC Q4HR PRN PRN Reason: FEVER >100.1 Stop: 07/30/17 13:39 Acetaminophen (Tylenol) 325 mg PO Q6H PRN PRN Reason: PAIN/FEVER Stop: 07/30/17 16:47 Albuterol Sulfate (Albuterol 2.5mg/3ml Neb Ud) 1.25 mg HHN QIDRT [facility] Stop: 07/30/17 14:59 Last Admin: 06/02/17 15:08 Dose: 1.25 mg Ascorbic Acid (Vitamin C) 500 mg GT DAILY [facility] Stop: 07/31/17 08:59 Last Admin: 06/02/17 08:41 Dose: 500 mg Bisacodyl (Dulcolax 10 Mg Supp) 10 mg RC Q72HR PRN PRN Reason: Constipation Stop: 07/30/17 13:39 [place] Oil/[place] Balsam/Trypsin (Venelex) 1 appl TP BID [facility] Stop: 07/31/17 16:59 Last Admin: 06/02/17 10:00 Dose: 1 appl Chlorhexidine Gluconate (Peridex) 15 ml MM 08,1999 [facility] Stop: 07/31/17 19:59 Last Admin: 06/02/17 08:41 Dose: 15 ml Cholecalciferol (Vitamin D3) 500 iu PO DAILY [facility] Stop: 07/31/17 08:59 Last Admin: 06/02/17 08:41 Dose: 500 iu Diltiazem HCl (Cardizem) 20 mg IVP Q4H PRN PRN Reason: HR Greater than 130 per min Stop: 07/30/17 13:40 Last Admin: 05/31/17 21:55 Dose: 20 mg Famotidine (Pepcid) 20 mg IVP Q12H [facility] Stop: 07/31/17 12:44 Last Admin: 06/02/17 12:09 Dose: 20 mg Guaifenesin (Robitussin) 200 mg PO Q4HR PRN PRN Reason: Cough or Congestion Stop: 07/30/17 13:41 Heparin Sodium (Porcine) (Heparin) 5,000 units SUBQ Q12H [facility] Stop: 07/31/17 20:59 Last Admin: 06/02/17 08:42 Dose: 5,000 units Piperacillin Sod/Tazobactam (Sod 4.5 gm/ Sodium Chloride) 100 mls @ 100 mls/hr IV Q8HR [facility] Stop: 07/31/17 12:59 Last Infusion: 06/02/17 13:10 Dose: Infused Dextrose (D5w) 1,000 mls @ 0 mls/hr IV .Q0M FERNANDO PRN Reason: Wide Open Stop: 07/31/17 16:46 Last Infusion: 06/01/17 19:08 Dose: Infused Norepinephrine Bitartrate 4 mg (/ Dextrose) 254 mls @ 30.48 mls/hr IV TITR PRN ; Protocol; 8 MCG/MIN PRN Reason: BP MAINTENANCE (PER PROTOCOL) Stop: 07/31/17 16:46 Vancomycin HCl 500 mg/ (Dextrose) 100 mls @ 100 mls/hr IV Q12HR@1000,2200 [facility] Stop: 08/01/17 21:59 Dextrose (D5w) 1,000 mls @ 80 mls/hr IV .[id number] [facility] Stop: 08/01/17 17:38 Ipratropium [place] (Atrovent Neb 0.5mg/2.5ml) 0.5 mg HHN QID [facility] Stop: 07/30/17 16:59 Last Admin: 06/02/17 15:09 Dose: 0.5 mg Ipratropium [place] (Atrovent Neb 0.5mg/2.5ml) 0.5 mg IH QIDRT [facility] Stop: 07/30/17 14:59 Last Admin: 06/02/17 11:28 Dose: 0.5 mg Lorazepam (Ativan) 1 mg IV Q4H PRN; Protocol PRN Reason: Seizure Stop: 07/30/17 13:40 Methylprednisolone Sodium Succinate (Solu-Medrol) 80 mg IVP Q8HR [facility] Stop: 07/30/17 20:59 Last Admin: 06/02/17 12:09 Dose: 80 mg Metoprolol Tartrate (Lopressor) 25 mg GT BID [facility] Stop: 07/30/17 16:59 Last Admin: 06/02/17 08:42 Dose: Not Given Miscellaneous (Vancomycin Iv Per Pharmacy) 1 ea MC PRN [facility] Stop: 07/30/17 13:44 Miscellaneous (Vte Chemical Prophylaxis Screen/ Admission) 1 ea PRN PRN PRN Reason: PROTOCOL Stop: 07/31/17 14:00 Miscellaneous (Probiotic Screen) 1 ea PRN PRN PRN Reason: PROTOCOL Stop: 07/31/17 16:02 Multivitamins/Vitamin C (Theragran) 1 tab GT DAILY [facility] Stop: 07/31/17 08:59 Last Admin: 06/02/17 08:41 Dose: 1 tab Ondansetron HCl (Zofran) 4 mg IV Q8H PRN PRN Reason: Nausea / Vomiting Stop: 07/30/17 13:41 Polyethylene Glycol (Miralax) 17 gm GT MWF [facility] Stop: 07/31/17 08:59 Last Admin: 06/01/17 09:07 Dose: 17 gm Sodium Phosphate (Fleet Enema) 133 ml RC DAILY PRN PRN Reason: Constipation Stop: 07/30/17 13:39 General: weak, obtunded HEENT: NC/AT, PERRLA Neck: No LAD Lungs: congested, ronchi Cardiovascular: RRR, Normal S1, Normal S2, without murmur Abdomen: soft, non-tender, non-distended, +GT, positive bowel sound Extremities: excoriation, ecchymosis, contracture, deformity, atrophy Neurological: unable to follow command - Procedures Procedures: Procedures Procedure Code Date INSERT EMERGENCY AIRWAY 20082 05/31/17 INSERTION OF ENDOTRACHEAL AIRWAY INTO [place], VIA OPENING [id number] 05/31/17 RESPIRATORY VENTILATION, LESS THAN 24 CONSECUTIVE HOURS [id number] 05/31/17 VENT MGMT INPAT INIT DAY 21804 05/31/17 Internal Medicine Assmt/Plan - Assessment Assessment: - Assessment Assessment: S/p cardiopulmonary arrest, now intubated on vent lactic acidosis Acute Respiratory Failure Sepsis PNA leukocytosis hypokalemia acute renal insufficiency spastic quadriplegia seizures - Plan Plan: sputum cx vent support inhalation treatments empiric ivantibiotics pulmo follow up continue current plan of care - Plan Plan: see orders Nutritional Asmnt/Malnutr-PDOC - Dietary Evaluation Malnutrition Findings (Please click <Entered> for more info): Nutritional Asmnt/Malnutrition Start: 06/01/17 17: 31 Text: Status: Complete Freq: Document 06/01/17 17:31 LCHENG (Rec: 06/01/17 17:45 LCHENG [id number]) Nutritional Asmnt/Malnutrition Patient General Information Nutritional Screening High Risk Consult Diagnosis renal failure, prespiratory failure r/o PNA Pertinent Medical Hx/Surgical Hx dementia, MR anemia, spastic quadriplegia, cerebral palsy, seizure, aspiration PNA, s/p respiratory failure, spsis, hyponatremia, gastroenteritis, PEG Subjective Information Consult received for Anibal 13 and pressure ulcer. Pt seen resting in bed at the time of visit, intubated, non-verbal noted. TF not running at this time. Current Diet Order/ Nutrition Support Isosource 1.5 87ml/hr x 17hr Pertinent Medications vitamin C, vitamin D3, D5w, teragran, piperacillin, miralax, cancomycin Pertinent Labs 06/01 na 160, Cl 120, K 4.1, BUN 29, Cr 0.3, Glucose 242, A1c 5.1, Ca 8.4, Mg 2.8 Nutritional Hx/Data Height 1.68 m Height (Calculated Centimeters) 167.6 Current Weight (lbs) 47.854 kg Weight (Calculated Kilograms) 47.9 Weight (Calculated Grams) 72106.0 [place] Body Weight 142 % [place] Body Weight 94 Body Mass Index (BMI) 17.0 Weight Status Underweight GI Symptoms GI Symptoms None Last BM none Difficult in: None Usual diet at home Jevity 1.5 87ml/hr x 17hr Skin Integrity/Comment: decubitus ulceration to sacrum Estimated Nutritional Goals Calories/Kcals/Kg 25-30 Kcals Calculated 5361-2980 based on IBW 65kg Protein g/k.2-1.4 Protein Calculated 78-91 consider respiratory failure and skin probelm Nutritional Problem 1. Problem Problem excessive intake from enteral feeding Etiology current TF regimen providing excessive calorie and protein than estimated nutritional needs Signs/Symptoms: current TF providing 114% of calorie needs and 110% of protein needs Malnutrition Alert Protein-Calorie Malnutrition N/A Is there a minimum of two criteria No selected? Query Text:Check all the applicable criteria. A minimum of two criteria are recommended for diagnosis of either severe or non-severe malnutrition. Intervention/Recommendation Comments 1. Recommend modify TF rate to 70ml/hr x 17hr to meet 100% of nutritional needs and avoid overfeeding. 2. Monitor TF rate, tolerance, wt weekly, skin integrity and labs 3. F/U as moderate risk in 3-5 days, 04/25-04/27 Expected Outcomes/Goals Expected Outcomes/Goals 1. Pt to meet 75-100% of nutritional needs via nutrition support with tolerance 2. 2. Wt stability, skin to remain intact, labs to approach WNL.
--- NOTE | 2017-06-02 19:10 | Consultation ---
Consult Note - Consult Note Service Date: 06/02/17 Referring Physician: Skip Stephens Consult Note: PHYSICIAN Consultation Note: Date of Admission: 05/31/17 Purpose of Consultation: Sepsis. Chief Complaint: Patient CRISTINA THAKKAR was admitted to location Intensive Care Unit with RENAL FAILURE, RESPIRATORY FAILURE R/O PNA.. History of Present Illness: Patient is 52-year-old male with a past medical history of severe intellectual disability, epilepsy spastic quadriplegia, cerebral palsy, hypertension, history of upper dysphagia, G-tube placement brought from nursing facility for cough and congestion. On initial evaluation, his temperature was 98.6 today Fahrenheit which went up to 101.7F. He was found unresponsive and hypoxic. He was intubated and put on ventilator support. Urine culture grew ESBL Escherichia coli. Patient was started on vancomycin and Zosyn. ID consult was called for further antibiotic management. Patient remains intubated orally and unable to give any history. History is taken from the chart. Past Medical History: severe intellectual disability, epilepsy spastic quadriplegia, cerebral palsy, hypertension, history of upper dysphagia, G-tube placement Diagnoses SEPSIS, UNSPECIFIED ORGANISM (05/31/17) UNSPECIFIED SEVERE PROTEIN-CALORIE MALNUTRITION (05/31/17) DEHYDRATION (05/31/17) HYPEROSMOLALITY AND HYPERNATREMIA (05/31/17) HYPOKALEMIA (05/31/17) SEVERE INTELLECTUAL DISABILITIES (05/31/17) EPILEPSY, UNSP, NOT INTRACTABLE, WITHOUT STATUS EPILEPTICUS (05/31/17) SPASTIC QUADRIPLEGIC CEREBRAL PALSY (05/31/17) ESSENTIAL (PRIMARY) HYPERTENSION (05/31/17) CARDIAC ARREST, CAUSE UNSPECIFIED (05/31/17) PNEUMONIA, UNSPECIFIED ORGANISM (05/31/17) ACUTE RESPIRATORY FAILURE, UNSP W HYPOXIA OR HYPERCAPNIA (05/31/17) ACUTE KIDNEY FAILURE, UNSPECIFIED (05/31/17) GASTROSTOMY STATUS (05/31/17) Allergies Allergy/AdvReac Type Severity Reaction Status Date / Time No Known Allergies Allergy Verified 04/20/17 14:44 Vital Signs Temp 97.8 F 06/02/17 13:00 Pulse 95 06/02/17 17:19 Resp 14 06/02/17 17:00 BP 91/48 06/02/17 17:00 Pulse Ox 100 06/02/17 18:00 Intake & Output 06/02/17 06/02/17 06/03/17 06:59 18:59 06:59 Intake Total 2850 1100 Output Total 700 Balance 2150 1100 Weight (lbs) 47.627 kg Intake: Intake, IV Amount 2450 1100 Dextrose 5% 1,000 ml @ 1000 1000 125 mls/hr IV .Q8H [facility] Rx #:[id number] Dextrose 5% 1,000 ml @ 1000 Wide Open IV .Q0M FERNANDO Rx# :[id number] Piperacillin Sodium/ 200 100 Tazobact 4.5 gm In Sodium Chloride 0.9% 100 ml @ 100 mls/hr IV Q8HR [facility]ERNANDO Rx #:[id number] Vancomycin HCl 1 gm In 250 Sodium Chloride 0.9% 250 ml @ 165 mls/hr IV Q12H FERNANDO Rx#:[id number] Other 400 Output: Urine 700 Other: # Bowel Movements 0 Laboratory Results - last 24 hr 06/01/17 06/02/17 06/02/17 20:50 04:35 04:35 WBC 4.0 L RBC 2.31 L Hgb 7.2 L* D Hct 20.6 L* D MCV 89.3 MCH 31.2 H MCHC Differential 34.9 RDW 15.4 Plt Count 82 L D MPV 11.3 Neutrophils % 78.5 Lymphocytes % 15.9 L Monocytes % 5.3 Eosinophils % 0.2 Basophils % 0.1 Specimen Source Sample Site pH pCO2 pO2 HCO3 Base Excess O2 Saturation Endy Test Vent Rate Inspired O2 Tidal Volume Critical Value Sodium Potassium Chloride Carbon Dioxide Anion Gap BUN Creatinine Est GFR ( Amer) Est GFR (Non-Af Amer) BUN/Creatinine Ratio Glucose Whole Bld Lactic Acid 3.60 H* Calcium Vancomycin Trough 32.7 H Blood Type Antibody Screen Crossmatch 06/02/17 06/02/17 06/02/17 04:35 09:10 11:40 WBC RBC Hgb Hct MCV MCH MCHC Differential RDW Plt Count MPV Neutrophils % Lymphocytes % Monocytes % Eosinophils % Basophils % Specimen Source Arterial Sample Site Right Radial pH 7.50 H pCO2 39.0 pO2 72.0 L HCO3 30.1 H Base Excess 6.7 H O2 Saturation 96.0 Endy Test PASS Vent Rate 10 Inspired O2 30 Tidal Volume 500 Critical Value PW Sodium 146 H Potassium 3.2 L Chloride 111 H Carbon Dioxide 26.7 Anion Gap 11.5 BUN 25 Creatinine 0.3 L Est GFR ( Amer) > 60.0 Est GFR (Non-Af Amer) > 60.0 BUN/Creatinine Ratio 83.3 Glucose 210 H Whole Bld Lactic Acid Calcium 7.7 L Vancomycin Trough Blood Type O POSITIVE Antibody Screen NEGATIVE Crossmatch See Detail Home Medication Medication Instructions Recorded Type Acetaminophen [Mapap] 325 mg GT Q6HR PRN 04/20/17 History Albuterol Sulfate 1 vial HHN Q4H 04/20/17 History Ascorbic Acid [Vitamin C] 500 mg GT DAILY 04/20/17 History Famotidine [Pepcid] 20 mg GT BID 04/20/17 History Ipratropium Neb 0.5 mg/2.5 mL 1 vial HHN QID 04/20/17 History [Atrovent Neb 0.5MG/2.5ML] Metoprolol Tartrate [Lopressor] 25 mg GT BID 04/20/17 History Multivit &Minerals/Ferrous Fum 9 mg GT DAILY 04/20/17 History [Multivitamin Liquid] Acetaminophen [Tylenol 650mg Supp] 650 mg RC Q4HR PRN 05/31/17 History Bisacodyl [Biscolax] 10 mg RC Q72HR PRN 05/31/17 History Cholecalciferol (Vitamin D3) 400 unit GT DAILY 05/31/17 History [Vitamin D3] Na Phos,M-B/Na Phos,Di-Ba [Enema 7 133 ml RC DAILY PRN 05/31/17 History gm/118 ml-19 gm/118 ml 133 ml] Non-Formulary Item 1 ea GT BID 05/31/17 History Polyethylene Glycol 3350 [Gavilax] 17.5 gm GT MWF 05/31/17 History Current Medications Generic Name Dose Route Start Last Admin Trade Name Freq PRN Reason Stop Dose Admin Acetaminophen 650 mg 05/31/17 13:40 Tylenol 650mg Supp RC 07/30/17 13:39 Q4HR PRN FEVER >100.1 Acetaminophen 325 mg 05/31/17 16:48 Tylenol PO 07/30/17 16:47 Q6H PRN PAIN/FEVER Albuterol Sulfate 1.25 mg 05/31/17 15:00 06/02/17 18:49 Albuterol 2.5mg/3ml Neb Ud HHN 07/30/17 14:59 1.25 mg QIDRT FERNANDO Administration Ascorbic Acid 500 mg 06/01/17 09:00 06/02/17 08:41 Vitamin C GT 07/31/17 08:59 500 mg DAILY FERNANDO Administration Bisacodyl 10 mg 05/31/17 13:40 Dulcolax 10 Mg Supp RC 07/30/17 13:39 Q72HR PRN Constipation [place] Oil/[place] Balsam/Trypsin 1 appl 06/01/17 17:00 06/02/17 10:00 Venelex TP 07/31/17 16:59 1 appl BID FERNANDO Administration Chlorhexidine Gluconate 15 ml 06/01/17 20:00 06/02/17 08:41 Peridex MM 07/31/17 19:59 15 ml 0800,1999 FERNANDO Administration Cholecalciferol 500 iu 06/01/17 09:00 06/02/17 08:41 Vitamin D3 PO 07/31/17 08:59 500 iu DAILY FERNANDO Administration Diltiazem HCl 20 mg 05/31/17 13:41 05/31/17 21:55 Cardizem IVP 07/30/17 13:40 20 mg Q4H PRN Administration HR Greater than 130 per min Famotidine 20 mg 06/01/17 12:45 06/02/17 12:09 Pepcid IVP 07/31/17 12:44 20 mg Q12H FERNANDO Administration Guaifenesin 200 mg 05/31/17 13:42 Robitussin PO 07/30/17 13:41 Q4HR PRN Cough or Congestion Heparin Sodium (Porcine) 5,000 units 06/01/17 21:00 06/02/17 08:42 Heparin SUBQ 07/31/17 20:59 5,000 units Q12H FERNANDO Administration Dextrose 1,000 mls @ 0 mls/hr 06/01/17 16:47 06/01/17 19:08 D5w IV 07/31/17 16:46 Infused .Q0M FERNANDO Infusion Wide Open Norepinephrine Bitartrate 4 mg 254 mls @ 30.48 mls/hr 06/01/17 16:47 / Dextrose IV 07/31/17 16:46 TITR PRN BP MAINTENANCE (PER PROTOCOL) Protocol 8 MCG/MIN Vancomycin HCl 500 mg/ 100 mls @ 100 mls/hr 06/02/17 22:00 Dextrose IV 08/01/17 21:59 Q12HR@1000,2200 FERNANDO Dextrose 1,000 mls @ 80 mls/hr 06/02/17 17:40 D5w IV 08/01/17 17:38 .[id number] FERNANDO Meropenem 1 gm/ Sodium 100 mls @ 100 mls/hr 06/02/17 19:15 Chloride IV 08/01/17 19:14 Q8H FERNANDO Ipratropium [place] 0.5 mg 05/31/17 17:00 06/02/17 15:09 Atrovent Neb 0.5mg/2.5ml HHN 07/30/17 16:59 0.5 mg QID FERNANDO Administration Ipratropium [place] 0.5 mg 05/31/17 15:00 06/02/17 18:51 Atrovent Neb 0.5mg/2.5ml IH 07/30/17 14:59 0.5 mg QIDRT FERNANDO Administration Lorazepam 1 mg 05/31/17 13:41 Ativan IV 07/30/17 13:40 Q4H PRN Seizure Protocol Methylprednisolone Sodium Succinate 80 mg 05/31/17 21:00 06/02/17 12:09 Solu-Medrol IVP 07/30/17 20:59 80 mg Q8HR FERNANDO Administration Metoprolol Tartrate 25 mg 05/31/17 17:00 06/02/17 08:42 Lopressor GT 07/30/17 16:59 Not Given BID [facility]ERNA[facility]O Miscellaneous 1 ea 05/31/17 13:45 Vancomycin Iv Per Pharmacy 07/30/17 13:44 PRN [facility]ERNANDO Miscellaneous 1 ea 06/01/17 14:01 Vte Chemical Prophylaxis Screen/ Admission 07/31/17 14:00 PRN PRN PROTOCOL Miscellaneous 1 ea 06/01/17 16:03 Probiotic Screen 07/31/17 16:02 PRN PRN PROTOCOL Multivitamins/Vitamin C 1 tab 06/01/17 09:00 06/02/17 08:41 Theragran GT 07/31/17 08:59 1 tab DAILY [facility]ERNANDO Administration Ondansetron HCl 4 mg 05/31/17 13:42 Zofran IV 07/30/17 13:41 Q8H PRN Nausea / Vomiting Polyethylene Glycol 17 gm 06/01/17 09:00 06/01/17 09:07 Miralax GT 07/31/17 08:59 17 gm MWF [facility]ERNANDO Administration Sodium Phosphate 133 ml 05/31/17 13:40 Fleet Enema RC 07/30/17 13:39 DAILY PRN Constipation Review of Systems: A 12 point ROS was reviewed with the pertinent positive and negatives noted in the HPI. Social History Smoking Status Unknown if ever smoked Drug Use No Alcohol Use No Family Medical History Family Medical History Start: 05/31/17 15: 42 Freq: Status: Active Document 05/31/17 16:45 LUCIA (Rec: 05/31/17 17:11 GMARTINEZ [id number]) Family Medical History Mother History Unknown Yes Physical Exam: General: Well-nourished well-developed. Intubated orally on the ventilator support. HEENT: Head: Normocephalic, atraumatic oral cavity: Moist, pink tongue. Eyes: Pallor is present icterus. Pupils PERRLA. EOMI. Neck: Supple, trachea in midline. Cardio: S1 and S2 within normal limits regular rhythm. Respiratory: Vesicular sounds, no crackles no wheezing. Abdominal: Soft, nontender, nondistended, bowel sounds present G-tube site is clear. Genital/Urinary: Deferred. Extremities: No cyanosis, no clubbing no edema. Neurological: Unresponsive. Assessment: 1. Sepsis. 2. UTI, with the ESBL Escherichia coli in the urine. 3. Pneumonia. 4. Acute respiratory failure and went dependence. 5. Altered mental status unresponsiveness, likely secondary to toxic metabolic encephalopathy. 6. Cerebral palsy. Plan: Change zosyn to meropenem. Continue vancomycin. Thank you, Dr. Grey, for involving me in taking care of this patient. Signed, Andre Perez M.D. [id number]
[2017-06-02] MEDS ORDERED: Gentamicin 80 mg/2mL Vial ONE (21:23)
--- NOTE | 2017-06-03 00:30 | Consultation ---
DATE OF CONSULTATION: 06/01/[address] Stephens. Thank you very much Dr. Stephens for this consultation. HISTORY OF PRESENT ILLNESS: This is a 52-year-old male who has history of cerebral palsy, who was admitted with pneumonia. The patient was found unresponsive with agonal breathing, resuscitated, intubated and called for further evaluation. The patient is intubated, hypotensive, on the vent, adequately saturating. PAST MEDICAL HISTORY: As above. SOCIAL HISTORY: alf resident. REVIEW OF SYSTEMS: Unable to obtain because of the patient's condition. PHYSICAL EXAMINATION: GENERAL: The patient is intubated and sedated. VITAL SIGNS: Temperature is 97.0, pulse of 90, respirations 15, blood pressure is 87/49, and saturation 100%. HEENT: Atraumatic, normocephalic. Pupils are reactive to light and accommodation. Ears, nose, and throat normal. NECK: Supple. No JVD. CHEST: There are rhonchi in bases. HEART: Regular rate and rhythm. ABDOMEN: Soft. EXTREMITIES: No edema. LABORATORY DATA: Sodium is 160, potassium is 4.1, BUN is 29, and creatinine 0.3. ABGs were 7.60, pCO2 of 40, pO2 is 132, bicarbonate 32, saturation 100%. WBC is 3.4, hemoglobin 10.3, hematocrit 31.4, and platelets 132. Chest x-ray, left lower lobe infiltrate, ET tube in place. IMPRESSION: This is a 52-year-old male with: 1. Pneumonia . 2. Respiratory failure. 3. Hypernatremia. 4. Weakness. 5. Cerebral palsy. PLAN: 1. I will give a bolus of 0.9. Continue with IV fluids. 2. Levophed if needed. 3. Antibiotics and supportive care. Follow up ABGs. We will follow the patient with you. Thank you very much for this consultation. JOB# [id number] BINA
[2017-06-03] MEDS ORDERED: Gentamicin 80 mg/2mL Vial ONE (04:09)
[2017-06-03] MEDS: methylPREDNISolone SS 40 mg Vial IVP SCH ×3 (04:24→21:19)
[2017-06-03] MEDS ORDERED: Meropenem 1 GM in Sodium Chloride 0.9% 100 ML IV SCH (05:00)
[2017-06-03 05:18] LABS: % EOSINOPHILS 0.2 % (0.0-5.0); % MONOCYTES 7.2 % (2.0-10.0); % NEUTROPHILS 83.6 % (40.0-80.0); HEMOGLOBIN 10.1 gm/dL (12-16); LYMPHOCYTE ABSOLUTE 0.4 Th/cmm (1.5-3.0); MEAN CELL VOLUME 88.1 fl (80-99); MEAN CORPUSCULAR HEMOGLOBIN 30.9 pg (26.0-30.0); MEAN CORPUSCULAR HGB CONC 35.1 pg (28.0-36.0); MONOCYTE ABSOLUTE 0.3 Th/cmm (0.3-1.0); NEUTROPHILE ABSOLUTE 3.7 Th/cmm (1.8-8.0); RED BLOOD COUNT 3.25 Mil/cmm (4.30-5.70); RED CELL DISTRIBUTION WIDTH 14.6 % (11.5-20.0); WHITE BLOOD COUNT 4.4 Th/cmm (4.8-10.8)
[2017-06-03 05:19] LABS: MEAN PLATELET VOLUME 10.6 fl
[2017-06-03 05:20] LABS: HEMATOCRIT 28.7 % (41.0-60); PLATELET COUNT 139 Th/cmm (150-400)
[2017-06-03 05:21] LABS: ANION GAP 12.3 (7.0-16.0); BUN - UREA NITROGEN 24 mg/dL (7-25); CALCIUM SERUM 8.2 mg/dL (8.6-10.3); CARBON DIOXIDE 26.7 mEq/L (21.0-31.0); CHLORIDE 111 mEq/L (98-107); CREATININE - SERUM 0.3 mg/dL (0.7-1.3); GFR AFRICAN-AMERICAN > 60.0 ml/min (>90); GFR NON AFRICAN-AMERICAN > 60.0 ml/min; GLUCOSE 155 mg/dL (70-105); SODIUM SERUM 147 mEq/L (136-145)
[2017-06-03] MEDS: Albuterol Nebulizer 2.5mg/3mL HHN SCH ×4 (06:29→19:27)
[2017-06-03] MEDS: Ipratropium Neb 0.5 mg/2.5 mL UD IH SCH ×3 (06:29→16:02)
[2017-06-03] MEDS: Multivitamin Tab GT SCH (08:54)
[2017-06-03] MEDS: Chlorhexidine Gluconate 0.12% 15mL Mouthwash MM SCH ×2 (08:54→21:19)
[2017-06-03] MEDS: Venelex 60gm Tube TP SCH ×2 (09:03→17:55)
[2017-06-03] MEDS ORDERED: Potassium Chloride 40 MEQ, Lidocaine 1% 20mL Vial 25 MG in Sodium Chloride 0.9% 250 ML IV ONE (13:16)
--- NOTE | 2017-06-03 13:17 | Internal Medicine Prog Note ---
Internal Medicine Subjective - Subjective Patient seen and examined:: with staff, chart reviewed, other (mother , father and brother at bedside) Patient is:: asleep, non-verbal, non-interactive, in bed, other (obtunded) Patient Complaints of:: congestion Per staff patient has:: tolerating meds Internal Medicine Objective - Results Result Diagrams: 06/03/17 04:35 06/03/17 04:35 Recent Labs: Laboratory Last Values WBC 4.4 Th/cmm (4.8-10.8) L 06/03/17 04:35 RBC 3.25 Mil/cmm (4.30-5.70) L 06/03/17 04:35 Hgb 10.1 gm/dL (12-16) L 06/03/17 04:35 Hct 28.7 % (41.0-60) L D 06/03/17 04:35 MCV 88.1 fl (80-99) 06/03/17 04:35 MCH 30.9 pg (26.0-30.0) H 06/03/17 04:35 MCHC Differential 35.1 pg (28.0-36.0) 06/03/17 04:35 RDW 14.6 % (11.5-20.0) 06/03/17 04:35 Plt Count 139 Th/cmm (150-400) L D 06/03/17 04:35 MPV 10.6 fl 06/03/17 04:35 Neutrophils % 83.6 % (40.0-80.0) H 06/03/17 04:35 Lymphocytes % 9.0 % (20.0-50.0) L 06/03/17 04:35 Monocytes % 7.2 % (2.0-10.0) 06/03/17 04:35 Eosinophils % 0.2 % (0.0-5.0) 06/03/17 04:35 Basophils % 0.0 % (0.0-2.0) 06/03/17 04:35 Specimen Source Arterial 06/02/17 09:10 Sample Site Right Radial 06/02/17 09:10 pH 7.50 (7.35-7.45) H 06/02/17 09:10 pCO2 39.0 mmHg (35.0-45.0) 06/02/17 09:10 pO2 72.0 mmHg (80.0-100.0) L 06/02/17 09:10 HCO3 30.1 mEq/L (20.0-26.0) H 06/02/17 09:10 Base Excess 6.7 mEq/L (-3.0-3.0) H 06/02/17 09:10 O2 Saturation 96.0 % (92.0-100.0) 06/02/17 09:10 Endy Test PASS 06/02/17 09:10 Vent Rate 10 06/02/17 09:10 Inspired O2 30 06/02/17 09:10 Tidal Volume 500 06/02/17 09:10 PEEP 0 06/01/17 09:00 Pressure (ins/psv/peep) NA 06/01/17 09:00 Critical Value PW 06/02/17 09:10 Sodium 147 mEq/L (136-145) H 06/03/17 04:35 Potassium 3.0 mEq/L (3.5-5.1) L 06/03/17 04:35 Chloride 111 mEq/L (98-107) H 06/03/17 04:35 Carbon Dioxide 26.7 mEq/L (21.0-31.0) 06/03/17 04:35 Anion Gap 12.3 (7.0-16.0) 06/03/17 04:35 BUN 24 mg/dL (7-25) 06/03/17 04:35 Creatinine 0.3 mg/dL (0.7-1.3) L 06/03/17 04:35 Est GFR ( Amer) > 60.0 ml/min (>90) 06/03/17 04:35 Est GFR (Non-Af Amer) > 60.0 ml/min 06/03/17 04:35 BUN/Creatinine Ratio 80.0 06/03/17 04:35 Glucose 155 mg/dL (70-105) H 06/03/17 04:35 POC Glucose 213 MG/DL (70 - 105) H 06/01/17 06:53 Hemoglobin A1c % 5.1 % (4.0-6.0) 06/01/17 05:30 Whole Bld Lactic Acid 3.45 mmol/L (0.60-1.99) H* 06/03/17 06:45 Calcium 8.2 mg/dL (8.6-10.3) L 06/03/17 04:35 Magnesium 2.8 mg/dL (1.9-2.7) H 06/01/17 05:30 Total Bilirubin 0.5 mg/dL (0.3-1.0) 06/01/17 05:30 AST 18 U/L (13-39) 06/01/17 05:30 ALT 22 U/L (7-52) 06/01/17 05:30 Alkaline Phosphatase 44 U/L (34-104) 06/01/17 05:30 Ammonia 43 umol/L (16-53) 06/03/17 04:35 B-Natriuretic Peptide 182.0 pg/mL (5.0-100.0) H 06/03/17 04:35 Total Protein 5.1 gm/dL (6.0-8.3) L 06/01/17 05:30 Albumin 2.7 gm/dL (4.2-5.5) L 06/01/17 05:30 Globulin 2.4 gm/dL 06/01/17 05:30 Albumin/Globulin Ratio 1.1 (1.0-1.8) 06/01/17 05:30 TSH 0.72 uIU/ml (0.34-5.60) 06/01/17 05:30 Urine Source CATH 05/31/17 12:35 Urine Color YELLOW 05/31/17 12:35 Urine Clarity CLOUDY (CLEAR) 05/31/17 12:35 Urine pH 8.5 (4.6 - 8.0) 05/31/17 12:35 Ur Specific [place] 1.010 (1.005-1.030) 05/31/17 12:35 Urine Protein 30 mg/dL (NEGATIVE) H 05/31/17 12:35 Urine Glucose (UA) NEGATIVE mg/dL (NEGATIVE) 05/31/17 12:35 Urine Ketones NEGATIVE mg/dL (NEGATIVE) 05/31/17 12:35 Urine Blood MODERATE (NEGATIVE) H 05/31/17 12:35 Urine Nitrate NEGATIVE (NEGATIVE) 05/31/17 12:35 Urine Bilirubin NEGATIVE (NEGATIVE) 05/31/17 12:35 Urine Urobilinogen 0.2 E.U./dL (0.2 - 1.0) 05/31/17 12:35 Ur Leukocyte Esterase NEGATIVE (NEGATIVE) 05/31/17 12:35 Urine RBC >100 /hpf (0-5) H 05/31/17 12:35 Urine WBC 2-5 /hpf (0-5) H 05/31/17 12:35 Ur Epithelial Cells NONE SEEN /lpf (FEW) 05/31/17 12:35 Urine Bacteria NONE SEEN /hpf (NONE SEEN) 05/31/17 12:35 Vancomycin Trough 32.7 ug/mL (10-20) H 06/02/17 04:35 Blood Type O POSITIVE 06/02/17 11:40 Antibody Screen NEGATIVE 06/02/17 11:40 Crossmatch See Detail 06/02/17 11:40 - Physical Exam Vitals and I&O: Vital Signs Temp 96 F 06/03/17 12:00 Pulse 60 06/03/17 12:00 Resp 10 06/03/17 12:00 BP 109/60 06/03/17 12:00 Pulse Ox 100 06/03/17 12:00 Intake & Output 06/02/17 06/03/17 06/03/17 18:59 06:59 18:59 Intake Total 1100 2495.94 Output Total 750 1300 Balance 350 1195.94 Weight (lbs) 47.627 kg 61.462 kg Intake: Intake, IV Amount 1100 2345.94 Dextrose 5% 1,000 ml @ 1000 125 mls/hr IV .Q8H [facility] Rx #:[id number] Dextrose 5% 1,000 ml @ 80 812 mls/hr IV .[id number] [facility] Rx#:[id number] Gentamicin 120 mg In 206 Sodium Chloride 0.9% 100 ml @ 100 mls/hr IV Q8HR [facility] Rx#:[id number] Meropenem 1 gm In Sodium 100 Chloride 0.9% 100 ml @ 100 mls/hr IV ONCE ONE Rx #:[id number] Meropenem 1 gm In Sodium 100 Chloride 0.9% 100 ml @ 100 mls/hr IV Q8HR [facility] Rx #:[id number] Norepinephrine 4 mg In 27.94 Dextrose 5% 250 ml @ 8 MCG/MIN 30.48 mls/hr IV TITR PRN Rx#:[id number] Piperacillin Sodium/ 100 Tazobact 4.5 gm In Sodium Chloride 0.9% 100 ml @ 100 mls/hr IV Q8HR [facility] Rx #:[id number] Vancomycin HCl 500 mg In 100 Dextrose 5% 100 ml @ 100 mls/hr IV Q12HR@1000,2200 [facility] Rx#:[id number] Oral 0 Other 150 Output: Urine 750 1300 Other: # Bowel Movements 1 2 Stool Characteristics Soft Brown Active Medications: Current Medications Acetaminophen (Tylenol 650mg Supp) 650 mg RC Q4HR PRN PRN Reason: FEVER >100.1 Stop: 07/30/17 13:39 Acetaminophen (Tylenol) 325 mg PO Q6H PRN PRN Reason: PAIN/FEVER Stop: 07/30/17 16:47 Albuterol Sulfate (Albuterol 2.5mg/3ml Neb Ud) 1.25 mg HHN QIDRT [facility] Stop: 07/30/17 14:59 Last Admin: 06/03/17 10:25 Dose: 1.25 mg Ascorbic Acid (Vitamin C) 500 mg GT DAILY [facility] Stop: 07/31/17 08:59 Last Admin: 06/03/17 08:54 Dose: 500 mg Bisacodyl (Dulcolax 10 Mg Supp) 10 mg RC Q72HR PRN PRN Reason: Constipation Stop: 07/30/17 13:39 [place] Oil/[place] Balsam/Trypsin (Venelex) 1 appl TP BID [facility] Stop: 07/31/17 16:59 Last Admin: 06/03/17 09:03 Dose: 1 appl Chlorhexidine Gluconate (Peridex) 15 ml MM 0800,1999 [facility] Stop: 07/31/17 19:59 Last Admin: 06/03/17 08:54 Dose: 15 ml Cholecalciferol (Vitamin D3) 500 iu PO DAILY [facility] Stop: 07/31/17 08:59 Last Admin: 06/03/17 08:54 Dose: 500 iu Diltiazem HCl (Cardizem) 20 mg IVP Q4H PRN PRN Reason: HR Greater than 130 per min Stop: 07/30/17 13:40 Last Admin: 05/31/17 21:55 Dose: 20 mg Famotidine (Pepcid) 20 mg IVP Q12H [facility] Stop: 07/31/17 12:44 Last Admin: 06/03/17 00:57 Dose: 20 mg Guaifenesin (Robitussin) 200 mg PO Q4HR PRN PRN Reason: Cough or Congestion Stop: 07/30/17 13:41 Heparin Sodium (Porcine) (Heparin) 5,000 units SUBQ Q12H [facility] Stop: 07/31/17 20:59 Last Admin: 06/03/17 08:55 Dose: 5,000 units Dextrose (D5w) 1,000 mls @ 0 mls/hr IV .Q0M [facility] PRN Reason: Wide Open Stop: 07/31/17 16:46 Last Infusion: 06/01/17 19:08 Dose: Infused Norepinephrine Bitartrate 4 mg (/ Dextrose) 254 mls @ 30.48 mls/hr IV TITR PRN ; Protocol; 8 MCG/MIN PRN Reason: BP MAINTENANCE (PER PROTOCOL) Stop: 07/31/17 16:46 Last Titration: 06/03/17 00:00 Dose: 0 mcg/min, 0 mls/hr Vancomycin HCl 500 mg/ (Dextrose) 100 mls @ 100 mls/hr IV Q12HR@1000,2200 [facility] Stop: 08/01/17 21:59 Last Admin: 06/03/17 10:19 Dose: 100 mls/hr Dextrose (D5w) 1,000 mls @ 80 mls/hr IV .[id number] [facility] Stop: 08/01/17 17:38 Last Infusion: 06/03/17 06:00 Dose: 80 mls/hr Meropenem 1 gm/ Dextrose 100 mls @ 100 mls/hr IV Q8HR [facility] Stop: 08/02/17 12:59 Gentamicin Sulfate 120 mg/ (Sodium Chloride) 103 mls @ 100 mls/hr IV Q8HR@0000, 0800,1600 [facility] Stop: 08/01/17 20:59 Ipratropium [place] (Atrovent Neb 0.5mg/2.5ml) 0.5 mg HHN QID [facility] Stop: 07/30/17 16:59 Last Admin: 06/02/17 15:09 Dose: 0.5 mg Ipratropium [place] (Atrovent Neb 0.5mg/2.5ml) 0.5 mg IH QIDRT [facility] Stop: 07/30/17 14:59 Last Admin: 06/03/17 10:26 Dose: 0.5 mg Lorazepam (Ativan) 1 mg IV Q4H PRN; Protocol PRN Reason: Seizure Stop: 07/30/17 13:40 Last Admin: 06/02/17 22:27 Dose: 1 mg Methylprednisolone Sodium Succinate (Solu-Medrol) 80 mg IVP Q8HR [facility] Stop: 07/30/17 20:59 Last Admin: 06/03/17 04:24 Dose: 80 mg Miscellaneous (Vancomycin Iv Per Pharmacy) 1 [facility] PRN [facility] Stop: 07/30/17 13:44 Miscellaneous (Vte Chemical Prophylaxis Screen/ Admission) 1 [facility] PRN PRN PRN Reason: PROTOCOL Stop: 07/31/17 14:00 Miscellaneous (Probiotic Screen) 1 [facility] PRN PRN PRN Reason: PROTOCOL Stop: 07/31/17 16:02 Miscellaneous (Gentamicin Iv Per Pharmacy) 1 [facility] PRN PRN PRN Reason: PROTOCOL Stop: 06/05/17 19:13 Multivitamins/Vitamin C (Theragran) 1 tab GT DAILY [facility] Stop: 07/31/17 08:59 Last Admin: 06/03/17 08:54 Dose: 1 tab Ondansetron HCl (Zofran) 4 mg IV Q8H PRN PRN Reason: Nausea / Vomiting Stop: 07/30/17 13:41 Polyethylene Glycol (Miralax) 17 gm GT MWF [facility] Stop: 07/31/17 08:59 Last Admin: 06/01/17 09:07 Dose: 17 gm Sodium Phosphate (Fleet Enema) 133 ml RC DAILY PRN PRN Reason: Constipation Stop: 07/30/17 13:39 General: weak, obtunded HEENT: NC/AT, PERRLA Neck: No LAD Lungs: congested, ronchi Cardiovascular: RRR, Normal S1, Normal S2, without murmur Abdomen: soft, non-tender, non-distended, +GT, positive bowel sound Extremities: excoriation, ecchymosis, contracture, deformity, atrophy Neurological: unable to follow command - Procedures Procedures: Procedures Procedure Code Date INSERT EMERGENCY AIRWAY 15801 05/31/17 INSERTION OF ENDOTRACHEAL AIRWAY INTO [place], VIA OPENING [id number] 05/31/17 RESPIRATORY VENTILATION, LESS THAN 24 CONSECUTIVE HOURS [id number] 05/31/17 VENT MGMT INPAT INIT DAY 30735 05/31/17 Internal Medicine Assmt/Plan - Assessment Assessment: - Assessment Assessment: S/p cardiopulmonary arrest, now intubated on vent lactic acidosis Acute Respiratory Failure Sepsis PNA leukocytosis hypokalemia acute renal insufficiency spastic quadriplegia seizures - Plan Plan: sputum cx vent support inhalation treatments empiric ivantibiotics pulmo follow up continue current plan of care - Plan Plan: see orders Nutritional Asmnt/Malnutr-PDOC - Dietary Evaluation Malnutrition Findings (Please click <Entered> for more info): Nutritional Asmnt/Malnutrition Start: 06/01/17 17: 31 Text: Status: Complete Freq: Document 06/01/17 17:31 [facility] (Rec: 06/01/17 17:45 [facility] Nutritional Asmnt/Malnutrition Patient General Information Nutritional Screening High Risk Consult Diagnosis renal failure, prespiratory failure r/o PNA Pertinent Medical Hx/Surgical Hx dementia, MR anemia, spastic quadriplegia, cerebral palsy, seizure, aspiration PNA, s/p respiratory failure, spsis, hyponatremia, gastroenteritis, PEG Subjective Information Consult received for Anibal 13 and pressure ulcer. Pt seen resting in bed at the time of visit, intubated, non-verbal noted. TF not running at this time. Current Diet Order/ Nutrition Support Isosource 1.5 87ml/hr x 17hr Pertinent Medications vitamin C, vitamin D3, D5w, teragran, piperacillin, miralax, cancomycin Pertinent Labs 1/ na 160, Cl 120, K 4.1, BUN 29, Cr 0.3, Glucose 242, A1c 5.1, Ca 8.4, Mg 2.8 Nutritional Hx/Data Height 1.68 m Height (Calculated Centimeters) 167.6 Current Weight (lbs) 47.854 kg Weight (Calculated Kilograms) 47.9 Weight (Calculated Grams) 48190.0 [place] Body Weight 142 % [place] Body Weight 94 Body Mass Index (BMI) 17.0 Weight Status Underweight GI Symptoms GI Symptoms None Last BM none Difficult in: None Usual diet at home Jevity 1.5 87ml/hr x 17hr Skin Integrity/Comment: decubitus ulceration to sacrum Estimated Nutritional Goals Calories/Kcals/Kg 25-30 Kcals Calculated 6420-4223 based on IBW 65kg Protein g/k.2-1.4 Protein Calculated 78-91 consider respiratory failure and skin probelm Nutritional Problem 1. Problem Problem excessive intake from enteral feeding Etiology current TF regimen providing excessive calorie and protein than estimated nutritional needs Signs/Symptoms: current TF providing 114% of calorie needs and 110% of protein needs Malnutrition Alert Protein-Calorie Malnutrition N/A Is there a minimum of two criteria No selected? Query Text:Check all the applicable criteria. A minimum of two criteria are recommended for diagnosis of either severe or non-severe malnutrition. Intervention/Recommendation Comments 1. Recommend modify TF rate to 70ml/hr x 17hr to meet 100% of nutritional needs and avoid overfeeding. 2. Monitor TF rate, tolerance, wt weekly, skin integrity and labs 3. F/U as moderate risk in 3-5 days, 04/25-04/27 Expected Outcomes/Goals Expected Outcomes/Goals 1. Pt to meet 75-100% of nutritional needs via nutrition support with tolerance 2. 2. Wt stability, skin to remain intact, labs to approach WNL.
[2017-06-03] MEDS: Dextrose 5% 1,000 ML IV SCH (13:40)
--- NOTE | 2017-06-03 14:41 | Cardiology ---
06/02/[address] Stephens. PROCEDURE: Echocardiogram. M-MODE ECHOCARDIOGRAM: Mitral valve, anterior leaflet of mitral valve shows normal excursion, EF velocity. Posterior leaflets of mitral valve shows normal excursion. Left ventricular posterior wall shows increased thickness, normal excursion. Interventricular septum shows increased thickness, normal excursion, hypertrophy of the left ventricle, ejection fraction 55%. Left atrium normal. Aortic root shows normal dimension, normal excursion of aortic leaflets. CONCLUSION: Hypertrophy of the left ventricle, ejection fraction 55%. 2D ECHO: Long axis view showed normal sized left ventricle with hypertrophy of the left ventricle. Left atrium normal. Aortic root shows normal dimension, normal excursion of aortic leaflets. Short axis view of mitral valve normal. Short axis view of aortic valve normal. Apical four chamber view showed normal sized left ventricle, left atrium, right ventricle, right atrium, tricuspid and mitral valve. Ejection fraction 55%. CONCLUSION: Hypertrophy of the left ventricle, ejection fraction 55%. Doppler study shows mild tricuspid regurgitation, prominent A wave consistent with poor compliance of left ventricle. JOB# [id number]
[2017-06-03] MEDS: Ipratropium Neb 0.5 mg/2.5 mL UD HHN SCH (19:27)
[2017-06-04] MEDS: methylPREDNISolone SS 40 mg Vial IVP SCH ×2 (06:38→16:23)
[2017-06-04 07:17] LABS: % BASOPHILS 0.4 % (0.0-2.0); % EOSINOPHILS 0.2 % (0.0-5.0); % LYMPHOCYTES 5.4 % (20.0-50.0); % MONOCYTES 4.8 % (2.0-10.0); % NEUTROPHILS 89.2 % (40.0-80.0); HEMATOCRIT 26.6 % (41.0-60); HEMOGLOBIN 9.2 gm/dL (12-16); LYMPHOCYTE ABSOLUTE 0.3 Th/cmm (1.5-3.0); MEAN CELL VOLUME 88.9 fl (80-99); MEAN CORPUSCULAR HEMOGLOBIN 30.8 pg (26.0-30.0); MEAN CORPUSCULAR HGB CONC 34.7 pg (28.0-36.0); MEAN PLATELET VOLUME 10.5 fl; MONOCYTE ABSOLUTE 0.3 Th/cmm (0.3-1.0); NEUTROPHILE ABSOLUTE 5.1 Th/cmm (1.8-8.0); PLATELET COUNT 164 Th/cmm (150-400); RED BLOOD COUNT 2.99 Mil/cmm (4.30-5.70)
[2017-06-04 07:23] LABS: WHITE BLOOD COUNT 5.7 Th/cmm (4.8-10.8)
[2017-06-04] MEDS: Albuterol Nebulizer 2.5mg/3mL HHN SCH ×4 (07:24→19:29)
[2017-06-04 07:35] LABS: ALBUMIN 2.1 gm/dL (4.2-5.5); ALKALINE PHOSPHATASE 57 U/L (34-104); ANION GAP 9.9 (7.0-16.0); BILIRUBIN,TOTAL 0.3 mg/dL (0.3-1.0); BUN - UREA NITROGEN 27 mg/dL (7-25); CALCIUM SERUM 7.7 mg/dL (8.6-10.3); CARBON DIOXIDE 28.7 mEq/L (21.0-31.0); CHLORIDE 110 mEq/L (98-107); CREATININE - SERUM 0.3 mg/dL (0.7-1.3); GFR AFRICAN-AMERICAN > 60.0 ml/min (>90); GFR NON AFRICAN-AMERICAN > 60.0 ml/min; GLUCOSE 190 mg/dL (70-105); MAGNESIUM 1.9 mg/dL (1.9-2.7); POTASSIUM SERUM 3.6 mEq/L (3.5-5.1); SGOT 29 U/L (13-39); SGPT/ALT 41 U/L (7-52); SODIUM SERUM 145 mEq/L (136-145); TOTAL PROTEIN,SERUM 4.3 gm/dL (6.0-8.3)
--- NOTE | 2017-06-04 08:28 | Diagnostic Imaging Report ---
Portable chest x-ray HISTORY: Pneumonia Compared with prior exam of 2017, persistent infiltrate noted in left lower lobe. Findings may be associated with a chronic component. However, pneumonia cannot be excluded. Clinical correlation is needed. Endotracheal tube tip approximately 3-4 cm above the reji. IMPRESSION: 1. Persistent infiltrate within the left lower lobe. Findings may be associated with a chronic etiology. Superimposed pneumonia cannot be excluded. Clinical correlation is needed.
[2017-06-04] MEDS: Multivitamin Tab GT SCH (09:09)
[2017-06-04] MEDS: POLYETHYLENE GLYCOL 3350 17 GM PACK GT SCH (09:09)
[2017-06-04] MEDS: Venelex 60gm Tube TP SCH ×2 (09:11→16:49)
[2017-06-04] MEDS: Chlorhexidine Gluconate 0.12% 15mL Mouthwash MM SCH ×2 (09:13→21:13)
--- NOTE | 2017-06-04 11:13 | Internal Medicine Prog Note ---
Internal Medicine Subjective - Subjective Service Date: 06/04/17 (remains orally intubated much more awake today ) Patient is:: awake, non-verbal, non-interactive, in bed, other Per staff patient has:: tolerating meds Internal Medicine Objective - Results Result Diagrams: 06/04/17 06:45 06/04/17 06:45 Recent Labs: Laboratory Last Values WBC 5.7 Th/cmm (4.8-10.8) D 06/04/17 06:45 RBC 2.99 Mil/cmm (4.30-5.70) L 06/04/17 06:45 Hgb 9.2 gm/dL (12-16) L 06/04/17 06:45 Hct 26.6 % (41.0-60) L 06/04/17 06:45 MCV 88.9 fl (80-99) 06/04/17 06:45 MCH 30.8 pg (26.0-30.0) H 06/04/17 06:45 MCHC Differential 34.7 pg (28.0-36.0) 06/04/17 06:45 RDW 15.0 % (11.5-20.0) 06/04/17 06:45 Plt Count 164 Th/cmm (150-400) 06/04/17 06:45 MPV 10.5 fl 06/04/17 06:45 Neutrophils % 89.2 % (40.0-80.0) H 06/04/17 06:45 Lymphocytes % 5.4 % (20.0-50.0) L 06/04/17 06:45 Monocytes % 4.8 % (2.0-10.0) 06/04/17 06:45 Eosinophils % 0.2 % (0.0-5.0) 06/04/17 06:45 Basophils % 0.4 % (0.0-2.0) 06/04/17 06:45 Specimen Source Arterial 06/02/17 09:10 Sample Site Right Radial 06/02/17 09:10 pH 7.50 (7.35-7.45) H 06/02/17 09:10 pCO2 39.0 mmHg (35.0-45.0) 06/02/17 09:10 pO2 72.0 mmHg (80.0-100.0) L 06/02/17 09:10 HCO3 30.1 mEq/L (20.0-26.0) H 06/02/17 09:10 Base Excess 6.7 mEq/L (-3.0-3.0) H 06/02/17 09:10 O2 Saturation 96.0 % (92.0-100.0) 06/02/17 09:10 Endy Test PASS 06/02/17 09:10 Vent Rate 10 06/02/17 09:10 Inspired O2 30 06/02/17 09:10 Tidal Volume 500 06/02/17 09:10 PEEP 0 06/01/17 09:00 Pressure (ins/psv/peep) NA 06/01/17 09:00 Critical Value PW 06/02/17 09:10 Sodium 145 mEq/L (136-145) 06/04/17 06:45 Potassium 3.6 mEq/L (3.5-5.1) 06/04/17 06:45 Chloride 110 mEq/L (98-107) H 06/04/17 06:45 Carbon Dioxide 28.7 mEq/L (21.0-31.0) 06/04/17 06:45 Anion Gap 9.9 (7.0-16.0) 06/04/17 06:45 BUN 27 mg/dL (7-25) H 06/04/17 06:45 Creatinine 0.3 mg/dL (0.7-1.3) L 06/04/17 06:45 Est GFR ( Amer) > 60.0 ml/min (>90) 06/04/17 06:45 Est GFR (Non-Af Amer) > 60.0 ml/min 06/04/17 06:45 BUN/Creatinine Ratio 90.0 06/04/17 06:45 Glucose 190 mg/dL (70-105) H 06/04/17 06:45 POC Glucose 213 MG/DL (70 - 105) H 06/01/17 06:53 Hemoglobin A1c % 5.1 % (4.0-6.0) 06/01/17 05:30 Whole Bld Lactic Acid 3.45 mmol/L (0.60-1.99) H* 06/03/17 06:45 Calcium 7.7 mg/dL (8.6-10.3) L 06/04/17 06:45 Magnesium 1.9 mg/dL (1.9-2.7) 06/04/17 06:45 Total Bilirubin 0.3 mg/dL (0.3-1.0) 06/04/17 06:45 AST 29 U/L (13-39) 06/04/17 06:45 ALT 41 U/L (7-52) 06/04/17 06:45 Alkaline Phosphatase 57 U/L (34-104) 06/04/17 06:45 Ammonia 64 umol/L (16-53) H 06/04/17 06:45 B-Natriuretic Peptide 129.0 pg/mL (5.0-100.0) H 06/04/17 06:45 Total Protein 4.3 gm/dL (6.0-8.3) L 06/04/17 06:45 Albumin 2.1 gm/dL (4.2-5.5) L 06/04/17 06:45 Globulin 2.2 gm/dL 06/04/17 06:45 Albumin/Globulin Ratio 1.0 (1.0-1.8) 06/04/17 06:45 TSH 0.72 uIU/ml (0.34-5.60) 06/01/17 05:30 Urine Source CATH 05/31/17 12:35 Urine Color YELLOW 05/31/17 12:35 Urine Clarity CLOUDY (CLEAR) 05/31/17 12:35 Urine pH 8.5 (4.6 - 8.0) 05/31/17 12:35 Ur Specific [place] 1.010 (1.005-1.030) 05/31/17 12:35 Urine Protein 30 mg/dL (NEGATIVE) H 05/31/17 12:35 Urine Glucose (UA) NEGATIVE mg/dL (NEGATIVE) 05/31/17 12:35 Urine Ketones NEGATIVE mg/dL (NEGATIVE) 05/31/17 12:35 Urine Blood MODERATE (NEGATIVE) H 05/31/17 12:35 Urine Nitrate NEGATIVE (NEGATIVE) 05/31/17 12:35 Urine Bilirubin NEGATIVE (NEGATIVE) 05/31/17 12:35 Urine Urobilinogen 0.2 E.U./dL (0.2 - 1.0) 05/31/17 12:35 Ur Leukocyte Esterase NEGATIVE (NEGATIVE) 05/31/17 12:35 Urine RBC >100 /hpf (0-5) H 05/31/17 12:35 Urine WBC 2-5 /hpf (0-5) H 05/31/17 12:35 Ur Epithelial Cells NONE SEEN /lpf (FEW) 05/31/17 12:35 Urine Bacteria NONE SEEN /hpf (NONE SEEN) 05/31/17 12:35 Gentamicin Peak 11.9 ug/ml (4.0-8.0) H 06/04/17 02:00 Gentamicin Trough 5.9 ug/ml (0.2-2.0) H 06/03/17 23:25 Vancomycin Trough 10.7 ug/mL (10-20) 06/04/17 09:00 Blood Type O POSITIVE 06/02/17 11:40 Antibody Screen NEGATIVE 06/02/17 11:40 Crossmatch See Detail 06/02/17 11:40 - Physical Exam Vitals and I&O: Vital Signs Temp 97.8 F 06/04/17 08:00 Pulse 91 06/04/17 08:00 Resp 22 06/04/17 08:00 BP 106/58 06/04/17 08:00 Pulse Ox 99 06/04/17 07:27 Intake & Output 06/03/17 06/04/17 06/04/17 18:59 06:59 18:59 Intake Total 752 1470 Output Total 975 605 125 Balance -223 865 -125 Weight (lbs) 139 lb 4.8 oz 139 lb 139 lb Intake: Intake, IV Amount 491 200 Dextrose 5% 1,000 ml @ 80 188 mls/hr IV .[id number] [facility] Rx#:[id number] Gentamicin 120 mg In 103 Sodium Chloride 0.9% 100 ml @ 100 mls/hr IV Q8HR@ 0000,0800,1600 [facility] Rx#: [id number] Meropenem 1 gm In 100 100 Dextrose 5% 100 ml @ 100 mls/hr IV Q8HR [facility] Rx#: [id number] Vancomycin HCl 500 mg In 100 100 Dextrose 5% 100 ml @ 100 mls/hr IV Q12HR@1000,2200 [facility] Rx#:[id number] Oral 400 Tube Feeding 261 870 Output: Urine 975 605 125 Other: # Bowel Movements 1 Active Medications: Current Medications Acetaminophen (Tylenol 650mg Supp) 650 mg RC Q4HR PRN PRN Reason: FEVER >100.1 Stop: 07/30/17 13:39 Acetaminophen (Tylenol) 325 mg PO Q6H PRN PRN Reason: PAIN/FEVER Stop: 07/30/17 16:47 Albuterol Sulfate (Albuterol 2.5mg/3ml Neb Ud) 1.25 mg HHN QIDRT [facility] Stop: 07/30/17 14:59 Last Admin: 06/04/17 07:24 Dose: 1.25 mg Ascorbic Acid (Vitamin C) 500 mg GT DAILY [facility] Stop: 07/31/17 08:59 Last Admin: 06/04/17 09:09 Dose: 500 mg Bisacodyl (Dulcolax 10 Mg Supp) 10 mg RC Q72HR PRN PRN Reason: Constipation Stop: 07/30/17 13:39 [place] Oil/[place] Balsam/Trypsin (Venelex) 1 appl TP BID [facility] Stop: 07/31/17 16:59 Last Admin: 06/04/17 09:11 Dose: 1 appl Chlorhexidine Gluconate (Peridex) 15 ml MM 0800,1999 [facility] Stop: 07/31/17 19:59 Last Admin: 06/04/17 09:13 Dose: 15 ml Cholecalciferol (Vitamin D3) 500 iu PO DAILY [facility] Stop: 07/31/17 08:59 Last Admin: 06/04/17 09:09 Dose: 500 iu Diltiazem HCl (Cardizem) 20 mg IVP Q4H PRN PRN Reason: HR Greater than 130 per min Stop: 07/30/17 13:40 Last Admin: 05/31/17 21:55 Dose: 20 mg Famotidine (Pepcid) 20 mg IVP Q12H [facility] Stop: 07/31/17 12:44 Last Admin: 06/04/17 00:26 Dose: 20 mg Guaifenesin (Robitussin) 200 mg PO Q4HR PRN PRN Reason: Cough or Congestion Stop: 07/30/17 13:41 Heparin Sodium (Porcine) (Heparin) 5,000 units SUBQ Q12H [facility] Stop: 07/31/17 20:59 Last Admin: 06/04/17 09:10 Dose: 5,000 units Dextrose (D5w) 1,000 mls @ 0 mls/hr IV .Q0M [facility] PRN Reason: Wide Open Stop: 07/31/17 16:46 Last Infusion: 06/01/17 19:08 Dose: Infused Norepinephrine Bitartrate 4 mg (/ Dextrose) 254 mls @ 30.48 mls/hr IV TITR PRN ; Protocol; 8 MCG/MIN PRN Reason: BP MAINTENANCE (PER PROTOCOL) Stop: 07/31/17 16:46 Last Titration: 06/03/17 00:00 Dose: 0 mcg/min, 0 mls/hr Vancomycin HCl 500 mg/ (Dextrose) 100 mls @ 100 mls/hr IV Q12HR@1000,2200 [facility] Stop: 06/04/17 12:00 Last Admin: 06/04/17 09:22 Dose: 100 mls/hr Dextrose (D5w) 1,000 mls @ 80 mls/hr IV .[id number] [facility] Stop: 08/01/17 17:38 Last Admin: 06/03/17 13:40 Dose: 80 mls/hr Meropenem 1 gm/ Dextrose 100 mls @ 100 mls/hr IV Q8HR [facility] Stop: 08/02/17 12:59 Last Admin: 06/04/17 06:37 Dose: 100 mls/hr Gentamicin Sulfate 120 mg/ (Sodium Chloride) 103 mls @ 100 mls/hr IV Q24H [facility] Stop: 08/04/17 08:59 Vancomycin HCl 750 mg/ Sodium (Chloride) 250 mls @ 125 mls/hr IV Q12H [facility] Stop: 08/03/17 20:59 Ipratropium [place] (Atrovent Neb 0.5mg/2.5ml) 0.5 mg HHN QID [facility] Stop: 07/30/17 16:59 Last Admin: 06/03/17 19:27 Dose: 0.5 mg Ipratropium [place] (Atrovent Neb 0.5mg/2.5ml) 0.5 mg IH QIDRT [facility] Stop: 07/30/17 14:59 Last Admin: 06/03/17 16:02 Dose: 0.5 mg Lorazepam (Ativan) 1 mg IV Q4H PRN; Protocol PRN Reason: Seizure Stop: 07/30/17 13:40 Last Admin: 06/02/17 22:27 Dose: 1 mg Methylprednisolone Sodium Succinate (Solu-Medrol) 80 mg IVP Q8HR [facility] Stop: 07/30/17 20:59 Last Admin: 06/04/17 06:38 Dose: 80 mg Miscellaneous (Vancomycin Iv Per Pharmacy) 1 ea MC PRN [facility] Stop: 07/30/17 13:44 Miscellaneous (Vte Chemical Prophylaxis Screen/ Admission) 1 ea PRN PRN PRN Reason: PROTOCOL Stop: 07/31/17 14:00 Miscellaneous (Probiotic Screen) 1 ea PRN PRN PRN Reason: PROTOCOL Stop: 07/31/17 16:02 Miscellaneous (Gentamicin Iv Per Pharmacy) 1 ea PRN PRN PRN Reason: PROTOCOL Stop: 06/05/17 19:13 Multivitamins/Vitamin C (Theragran) 1 tab GT DAILY [facility] Stop: 07/31/17 08:59 Last Admin: 06/04/17 09:09 Dose: 1 tab Ondansetron HCl (Zofran) 4 mg IV Q8H PRN PRN Reason: Nausea / Vomiting Stop: 07/30/17 13:41 Polyethylene Glycol (Miralax) 17 gm GT MWF [facility] Stop: 07/31/17 08:59 Last Admin: 06/04/17 09:09 Dose: 17 gm Sodium Phosphate (Fleet Enema) 133 ml RC DAILY PRN PRN Reason: Constipation Stop: 07/30/17 13:39 General: weak HEENT: NC/AT, PERRLA Neck: No LAD Lungs: ronchi Cardiovascular: RRR, Normal S1, Normal S2, without murmur Abdomen: soft, non-tender, non-distended, +GT, positive bowel sound Extremities: excoriation, ecchymosis, contracture, deformity, atrophy Neurological: unable to follow command - Procedures Procedures: Procedures Procedure Code Date INSERT EMERGENCY AIRWAY 87227 05/31/17 INSERTION OF ENDOTRACHEAL AIRWAY INTO [place], VIA OPENING [id number] 05/31/17 RESPIRATORY VENTILATION, LESS THAN 24 CONSECUTIVE HOURS [id number] 05/31/17 VENT MGMT INPAT INIT DAY 93021 05/31/17 Internal Medicine Assmt/Plan - Assessment Assessment: S/p cardiopulmonary arrest, now intubated on vent lactic acidosis Acute Respiratory Failure Sepsis PNA leukocytosis hypokalemia acute renal insufficiency spastic quadriplegia seizures - Plan Plan: vent support inhalation treatments empiric ivantibiotics pulmo follow up continue current plan of care Nutritional Asmnt/Malnutr-PDOC - Dietary Evaluation Malnutrition Findings (Please click <Entered> for more info): Nutritional Asmnt/Malnutrition Start: 06/01/17 17: 31 Text: Status: Complete Freq: Document 06/01/17 17:31 ELIANAMANJU (Rec: 06/01/17 17:45 ELIANAMANJU [email or web address]) Nutritional Asmnt/Malnutrition Patient General Information Nutritional Screening High Risk Consult Diagnosis renal failure, prespiratory failure r/o PNA Pertinent Medical Hx/Surgical Hx dementia, MR anemia, spastic quadriplegia, cerebral palsy, seizure, aspiration PNA, s/p respiratory failure, spsis, hyponatremia, gastroenteritis, PEG Subjective Information Consult received for Anibal 13 and pressure ulcer. Pt seen resting in bed at the time of visit, intubated, non-verbal noted. TF not running at this time. Current Diet Order/ Nutrition Support Isosource 1.5 87ml/hr x 17hr Pertinent Medications vitamin C, vitamin D3, D5w, teragran, piperacillin, miralax, cancomycin Pertinent Labs 06/01 na 160, Cl 120, K 4.1, BUN 29, Cr 0.3, Glucose 242, A1c 5.1, Ca 8.4, Mg 2.8 Nutritional Hx/Data Height 5 ft 6 in Height (Calculated Centimeters) 167.6 Current Weight (lbs) 105 lb 8 oz Weight (Calculated Kilograms) 47.9 Weight (Calculated Grams) 71464.0 [place] Body Weight 142 % [place] Body Weight 94 Body Mass Index (BMI) 17.0 Weight Status Underweight GI Symptoms GI Symptoms None Last BM none Difficult in: None Usual diet at home Jevity 1.5 87ml/hr x 17hr Skin Integrity/Comment: decubitus ulceration to sacrum Estimated Nutritional Goals Calories/Kcals/Kg 25-30 Kcals Calculated [id number] based on IBW 65kg Protein g/k.2-1.4 Protein Calculated 78-91 consider respiratory failure and skin probelm Nutritional Problem 1. Problem Problem excessive intake from enteral feeding Etiology current TF regimen providing excessive calorie and protein than estimated nutritional needs Signs/Symptoms: current TF providing 114% of calorie needs and 110% of protein needs Malnutrition Alert Protein-Calorie Malnutrition N/A Is there a minimum of two criteria No selected? Query Text:Check all the applicable criteria. A minimum of two criteria are recommended for diagnosis of either severe or non-severe malnutrition. Intervention/Recommendation Comments 1. Recommend modify TF rate to 70ml/hr x 17hr to meet 100% of nutritional needs and avoid overfeeding. 2. Monitor TF rate, tolerance, wt weekly, skin integrity and labs 3. F/U as moderate risk in 3-5 days, 04/25-04/27 Expected Outcomes/Goals Expected Outcomes/Goals 1. Pt to meet 75-100% of nutritional needs via nutrition support with tolerance 2. 2. Wt stability, skin to remain intact, labs to approach WNL.
--- NOTE | 2017-06-04 11:40 | Infectious Disease Prog Note ---
Infectious Disease Subjective - Review of Systems Service Date: 06/04/17 Subjective: No change. No fever. Infectious Disease Objective - Results Result Diagrams: 06/04/17 06:45 06/04/17 06:45 Recent Labs: Laboratory Last Values WBC 5.7 Th/cmm (4.8-10.8) D 06/04/17 06:45 RBC 2.99 Mil/cmm (4.30-5.70) L 06/04/17 06:45 Hgb 9.2 gm/dL (12-16) L 06/04/17 06:45 Hct 26.6 % (41.0-60) L 06/04/17 06:45 MCV 88.9 fl (80-99) 06/04/17 06:45 MCH 30.8 pg (26.0-30.0) H 06/04/17 06:45 MCHC Differential 34.7 pg (28.0-36.0) 06/04/17 06:45 RDW 15.0 % (11.5-20.0) 06/04/17 06:45 Plt Count 164 Th/cmm (150-400) 06/04/17 06:45 MPV 10.5 fl 06/04/17 06:45 Neutrophils % 89.2 % (40.0-80.0) H 06/04/17 06:45 Lymphocytes % 5.4 % (20.0-50.0) L 06/04/17 06:45 Monocytes % 4.8 % (2.0-10.0) 06/04/17 06:45 Eosinophils % 0.2 % (0.0-5.0) 06/04/17 06:45 Basophils % 0.4 % (0.0-2.0) 06/04/17 06:45 Specimen Source Arterial 06/02/17 09:10 Sample Site Right Radial 06/02/17 09:10 pH 7.50 (7.35-7.45) H 06/02/17 09:10 pCO2 39.0 mmHg (35.0-45.0) 06/02/17 09:10 pO2 72.0 mmHg (80.0-100.0) L 06/02/17 09:10 HCO3 30.1 mEq/L (20.0-26.0) H 06/02/17 09:10 Base Excess 6.7 mEq/L (-3.0-3.0) H 06/02/17 09:10 O2 Saturation 96.0 % (92.0-100.0) 06/02/17 09:10 Endy Test PASS 06/02/17 09:10 Vent Rate 10 06/02/17 09:10 Inspired O2 30 06/02/17 09:10 Tidal Volume 500 06/02/17 09:10 PEEP 0 06/01/17 09:00 Pressure (ins/psv/peep) NA 06/01/17 09:00 Critical Value PW 06/02/17 09:10 Sodium 145 mEq/L (136-145) 06/04/17 06:45 Potassium 3.6 mEq/L (3.5-5.1) 06/04/17 06:45 Chloride 110 mEq/L (98-107) H 06/04/17 06:45 Carbon Dioxide 28.7 mEq/L (21.0-31.0) 06/04/17 06:45 Anion Gap 9.9 (7.0-16.0) 06/04/17 06:45 BUN 27 mg/dL (7-25) H 06/04/17 06:45 Creatinine 0.3 mg/dL (0.7-1.3) L 06/04/17 06:45 Est GFR ( Amer) > 60.0 ml/min (>90) 06/04/17 06:45 Est GFR (Non-Af Amer) > 60.0 ml/min 06/04/17 06:45 BUN/Creatinine Ratio 90.0 06/04/17 06:45 Glucose 190 mg/dL (70-105) H 06/04/17 06:45 POC Glucose 213 MG/DL (70 - 105) H 06/01/17 06:53 Hemoglobin A1c % 5.1 % (4.0-6.0) 06/01/17 05:30 Whole Bld Lactic Acid 3.45 mmol/L (0.60-1.99) H* 06/03/17 06:45 Calcium 7.7 mg/dL (8.6-10.3) L 06/04/17 06:45 Magnesium 1.9 mg/dL (1.9-2.7) 06/04/17 06:45 Total Bilirubin 0.3 mg/dL (0.3-1.0) 06/04/17 06:45 AST 29 U/L (13-39) 06/04/17 06:45 ALT 41 U/L (7-52) 06/04/17 06:45 Alkaline Phosphatase 57 U/L (34-104) 06/04/17 06:45 Ammonia 64 umol/L (16-53) H 06/04/17 06:45 B-Natriuretic Peptide 129.0 pg/mL (5.0-100.0) H 06/04/17 06:45 Total Protein 4.3 gm/dL (6.0-8.3) L 06/04/17 06:45 Albumin 2.1 gm/dL (4.2-5.5) L 06/04/17 06:45 Globulin 2.2 gm/dL 06/04/17 06:45 Albumin/Globulin Ratio 1.0 (1.0-1.8) 06/04/17 06:45 TSH 0.72 uIU/ml (0.34-5.60) 06/01/17 05:30 Urine Source CATH 05/31/17 12:35 Urine Color YELLOW 05/31/17 12:35 Urine Clarity CLOUDY (CLEAR) 05/31/17 12:35 Urine pH 8.5 (4.6 - 8.0) 05/31/17 12:35 Ur Specific [place] 1.010 (1.005-1.030) 05/31/17 12:35 Urine Protein 30 mg/dL (NEGATIVE) H 05/31/17 12:35 Urine Glucose (UA) NEGATIVE mg/dL (NEGATIVE) 05/31/17 12:35 Urine Ketones NEGATIVE mg/dL (NEGATIVE) 05/31/17 12:35 Urine Blood MODERATE (NEGATIVE) H 05/31/17 12:35 Urine Nitrate NEGATIVE (NEGATIVE) 05/31/17 12:35 Urine Bilirubin NEGATIVE (NEGATIVE) 05/31/17 12:35 Urine Urobilinogen 0.2 E.U./dL (0.2 - 1.0) 05/31/17 12:35 Ur Leukocyte Esterase NEGATIVE (NEGATIVE) 05/31/17 12:35 Urine RBC >100 /hpf (0-5) H 05/31/17 12:35 Urine WBC 2-5 /hpf (0-5) H 05/31/17 12:35 Ur Epithelial Cells NONE SEEN /lpf (FEW) 05/31/17 12:35 Urine Bacteria NONE SEEN /hpf (NONE SEEN) 05/31/17 12:35 Gentamicin Peak 11.9 ug/ml (4.0-8.0) H 06/04/17 02:00 Gentamicin Trough 5.9 ug/ml (0.2-2.0) H 06/03/17 23:25 Vancomycin Trough 10.7 ug/mL (10-20) 06/04/17 09:00 Blood Type O POSITIVE 06/02/17 11:40 Antibody Screen NEGATIVE 06/02/17 11:40 Crossmatch See Detail 06/02/17 11:40 - Physical Exam Vitals and I&O: Vital Signs Temp 97.8 F 06/04/17 08:00 Pulse 91 06/04/17 08:00 Resp 22 06/04/17 08:00 BP 106/58 06/04/17 08:00 Pulse Ox 99 06/04/17 07:27 Intake & Output 06/03/17 06/04/17 06/04/17 18:59 06:59 18:59 Intake Total 752 1470 Output Total 975 605 125 Balance -223 865 -125 Weight (lbs) 63.185 kg 63.049 kg 63.049 kg Intake: Intake, IV Amount 491 200 Dextrose 5% 1,000 ml @ 80 188 mls/hr IV .[id number] [facility] Rx#:[id number] Gentamicin 120 mg In 103 Sodium Chloride 0.9% 100 ml @ 100 mls/hr IV Q8HR@ 0000,0800,1600 [facility] Rx#: [id number] Meropenem 1 gm In 100 100 Dextrose 5% 100 ml @ 100 mls/hr IV Q8HR [facility] Rx#: [id number] Vancomycin HCl 500 mg In 100 100 Dextrose 5% 100 ml @ 100 mls/hr IV Q12HR@1000,2200 [facility] Rx#:[id number] Oral 400 Tube Feeding 261 870 Output: Urine 975 605 125 Other: # Bowel Movements 1 Active Medications: Current Medications Acetaminophen (Tylenol 650mg Supp) 650 mg RC Q4HR PRN PRN Reason: FEVER >100.1 Stop: 07/30/17 13:39 Acetaminophen (Tylenol) 325 mg PO Q6H PRN PRN Reason: PAIN/FEVER Stop: 07/30/17 16:47 Albuterol Sulfate (Albuterol 2.5mg/3ml Neb Ud) 1.25 mg HHN QIDRT [facility] Stop: 07/30/17 14:59 Last Admin: 06/04/17 07:24 Dose: 1.25 mg Ascorbic Acid (Vitamin C) 500 mg GT DAILY [facility] Stop: 07/31/17 08:59 Last Admin: 06/04/17 09:09 Dose: 500 mg Bisacodyl (Dulcolax 10 Mg Supp) 10 mg RC Q72HR PRN PRN Reason: Constipation Stop: 07/30/17 13:39 [place] Oil/[place] Balsam/Trypsin (Venelex) 1 appl TP BID [facility] Stop: 07/31/17 16:59 Last Admin: 06/04/17 09:11 Dose: 1 appl Chlorhexidine Gluconate (Peridex) 15 ml MM 0800,1999 [facility] Stop: 07/31/17 19:59 Last Admin: 06/04/17 09:13 Dose: 15 ml Cholecalciferol (Vitamin D3) 500 iu PO DAILY [facility] Stop: 07/31/17 08:59 Last Admin: 06/04/17 09:09 Dose: 500 iu Diltiazem HCl (Cardizem) 20 mg IVP Q4H PRN PRN Reason: HR Greater than 130 per min Stop: 07/30/17 13:40 Last Admin: 05/31/17 21:55 Dose: 20 mg Famotidine (Pepcid) 20 mg IVP Q12H [facility] Stop: 07/31/17 12:44 Last Admin: 06/04/17 00:26 Dose: 20 mg Guaifenesin (Robitussin) 200 mg PO Q4HR PRN PRN Reason: Cough or Congestion Stop: 07/30/17 13:41 Heparin Sodium (Porcine) (Heparin) 5,000 units SUBQ Q12H [facility] Stop: 07/31/17 20:59 Last Admin: 06/04/17 09:10 Dose: 5,000 units Dextrose (D5w) 1,000 mls @ 0 mls/hr IV .Q0M [facility] PRN Reason: Wide Open Stop: 07/31/17 16:46 Last Infusion: 06/01/17 19:08 Dose: Infused Norepinephrine Bitartrate 4 mg (/ Dextrose) 254 mls @ 30.48 mls/hr IV TITR PRN ; Protocol; 8 MCG/MIN PRN Reason: BP MAINTENANCE (PER PROTOCOL) Stop: 07/31/17 16:46 Last Titration: 06/03/17 00:00 Dose: 0 mcg/min, 0 mls/hr Vancomycin HCl 500 mg/ (Dextrose) 100 mls @ 100 mls/hr IV Q12HR@1000,2200 [facility] Stop: 06/04/17 12:00 Last Admin: 06/04/17 09:22 Dose: 100 mls/hr Dextrose (D5w) 1,000 mls @ 80 mls/hr IV .[id number] [facility] Stop: 08/01/17 17:38 Last Admin: 06/03/17 13:40 Dose: 80 mls/hr Meropenem 1 gm/ Dextrose 100 mls @ 100 mls/hr IV Q8HR [facility] Stop: 08/02/17 12:59 Last Admin: 06/04/17 06:37 Dose: 100 mls/hr Gentamicin Sulfate 120 mg/ (Sodium Chloride) 103 mls @ 100 mls/hr IV Q24H [facility] Stop: 08/04/17 08:59 Vancomycin HCl 750 mg/ Sodium (Chloride) 250 mls @ 125 mls/hr IV Q12H [facility] Stop: 08/03/17 20:59 Ipratropium [place] (Atrovent Neb 0.5mg/2.5ml) 0.5 mg HHN QID [facility] Stop: 07/30/17 16:59 Last Admin: 06/03/17 19:27 Dose: 0.5 mg Ipratropium [place] (Atrovent Neb 0.5mg/2.5ml) 0.5 mg IH QIDRT [facility] Stop: 07/30/17 14:59 Last Admin: 06/03/17 16:02 Dose: 0.5 mg Lorazepam (Ativan) 1 mg IV Q4H PRN; Protocol PRN Reason: Seizure Stop: 07/30/17 13:40 Last Admin: 06/02/17 22:27 Dose: 1 mg Methylprednisolone Sodium Succinate (Solu-Medrol) 80 mg IVP Q8HR [facility] Stop: 07/30/17 20:59 Last Admin: 06/04/17 06:38 Dose: 80 mg Miscellaneous (Vancomycin Iv Per Pharmacy) 1 ea MC PRN [facility] Stop: 07/30/17 13:44 Miscellaneous (Vte Chemical Prophylaxis Screen/ Admission) 1 ea MC PRN PRN PRN Reason: PROTOCOL Stop: 07/31/17 14:00 Miscellaneous (Probiotic Screen) 1 ea MC PRN PRN PRN Reason: PROTOCOL Stop: 07/31/17 16:02 Miscellaneous (Gentamicin Iv Per Pharmacy) 1 ea MC PRN PRN PRN Reason: PROTOCOL Stop: 06/05/17 19:13 Multivitamins/Vitamin C (Theragran) 1 tab GT DAILY [facility] Stop: 07/31/17 08:59 Last Admin: 06/04/17 09:09 Dose: 1 tab Ondansetron HCl (Zofran) 4 mg IV Q8H PRN PRN Reason: Nausea / Vomiting Stop: 07/30/17 13:41 Polyethylene Glycol (Miralax) 17 gm GT MWF [facility] Stop: 07/31/17 08:59 Last Admin: 06/04/17 09:09 Dose: 17 gm Sodium Phosphate (Fleet Enema) 133 ml RC DAILY PRN PRN Reason: Constipation Stop: 07/30/17 13:39 General: no acute distress, well developed, well nourished HEENT: atraumatic, normocephalic, PERRLA, EOMI, moist mucous membrane Neck: supple, no thyromegaly, no rigid Cardiovascular: S1S2, regular Lungs: clear to auscultation bilaterally, clear to percussion Abdomen: soft, no tender, no distended, no mass Extremities: no cyanosis, no clubbing, no edema Neurological: awake, alert, oriented Skin: intact - Procedures Procedures: Procedures Procedure Code Date INSERT EMERGENCY AIRWAY 13183 05/31/17 INSERTION OF ENDOTRACHEAL AIRWAY INTO [place], VIA OPENING [id number] 05/31/17 RESPIRATORY VENTILATION, LESS THAN 24 CONSECUTIVE HOURS [id number] 05/31/17 VENT MGMT INPAT INIT DAY 52735 05/31/17 Infectious Disease Assmt/Plan - Problem List Patient Problems: All Active Problems COUGH AND CONGESTION (Acute) - Assessment Assessment: 1. Sepsis. 2. UTI, with the ESBL Escherichia coli in the urine. 3. Pneumonia. 4. Acute respiratory failure and went dependence. 5. Altered mental status unresponsiveness, likely secondary to toxic metabolic encephalopathy. 6. Cerebral palsy. - Plan Plan: Continue meropenem. Discontinue vancomycin. Nutritional Asmnt/Malnutr-PDOC - Dietary Evaluation Malnutrition Findings (Please click <Entered> for more info): Nutritional Asmnt/Malnutrition Start: 06/01/17 17: 31 Text: Status: Complete Freq: Document 06/01/17 17:31 LCJOSELING (Rec: 06/01/17 17:45 LCHENG [id number]) Nutritional Asmnt/Malnutrition Patient General Information Nutritional Screening High Risk Consult Diagnosis renal failure, prespiratory failure r/o PNA Pertinent Medical Hx/Surgical Hx dementia, MR anemia, spastic quadriplegia, cerebral palsy, seizure, aspiration PNA, s/p respiratory failure, spsis, hyponatremia, gastroenteritis, PEG Subjective Information Consult received for Anibal 13 and pressure ulcer. Pt seen resting in bed at the time of visit, intubated, non-verbal noted. TF not running at this time. Current Diet Order/ Nutrition Support Isosource 1.5 87ml/hr x 17hr Pertinent Medications vitamin C, vitamin D3, D5w, teragran, piperacillin, miralax, cancomycin Pertinent Labs 06/01 na 160, Cl 120, K 4.1, BUN 29, Cr 0.3, Glucose 242, A1c 5.1, Ca 8.4, Mg 2.8 Nutritional Hx/Data Height 1.68 m Height (Calculated Centimeters) 167.6 Current Weight (lbs) 47.854 kg Weight (Calculated Kilograms) 47.9 Weight (Calculated Grams) 52843.0 [place] Body Weight 142 % [place] Body Weight 94 Body Mass Index (BMI) 17.0 Weight Status Underweight GI Symptoms GI Symptoms None Last BM none Difficult in: None Usual diet at home Jevity 1.5 87ml/hr x 17hr Skin Integrity/Comment: decubitus ulceration to sacrum Estimated Nutritional Goals Calories/Kcals/Kg 25-30 Kcals Calculated [id number] based on IBW 65kg Protein g/k.2-1.4 Protein Calculated 78-91 consider respiratory failure and skin probelm Nutritional Problem 1. Problem Problem excessive intake from enteral feeding Etiology current TF regimen providing excessive calorie and protein than estimated nutritional needs Signs/Symptoms: current TF providing 114% of calorie needs and 110% of protein needs Malnutrition Alert Protein-Calorie Malnutrition N/A Is there a minimum of two criteria No selected? Query Text:Check all the applicable criteria. A minimum of two criteria are recommended for diagnosis of either severe or non-severe malnutrition. Intervention/Recommendation Comments 1. Recommend modify TF rate to 70ml/hr x 17hr to meet 100% of nutritional needs and avoid overfeeding. 2. Monitor TF rate, tolerance, wt weekly, skin integrity and labs 3. F/U as moderate risk in 3-5 days, 04/25-04/27 Expected Outcomes/Goals Expected Outcomes/Goals 1. Pt to meet 75-100% of nutritional needs via nutrition support with tolerance 2. 2. Wt stability, skin to remain intact, labs to approach WNL.
[2017-06-04] MEDS ORDERED: Ipratropium Neb 0.5 mg/2.5 mL UD HHN ONE (15:00)
[2017-06-04] MEDS: Lactulose 10 Gm/15 mL 30mL UDC PO SCH (16:23)
[2017-06-04] MEDS: Dextrose 5% 1,000 ML IV SCH ×2 (16:50→21:14)
[2017-06-04] MEDS: Ipratropium Neb 0.5 mg/2.5 mL UD HHN SCH (19:29)
[2017-06-05 06:01] LABS: % EOSINOPHILS 0.1 % (0.0-5.0); % LYMPHOCYTES 6.6 % (20.0-50.0); % MONOCYTES 3.6 % (2.0-10.0); % NEUTROPHILS 89.7 % (40.0-80.0); HEMOGLOBIN 9.8 gm/dL (12-16); LYMPHOCYTE ABSOLUTE 0.6 Th/cmm (1.5-3.0); MEAN CELL VOLUME 89.6 fl (80-99); MEAN CORPUSCULAR HEMOGLOBIN 30.2 pg (26.0-30.0); MEAN CORPUSCULAR HGB CONC 33.7 pg (28.0-36.0); MEAN PLATELET VOLUME 9.6 fl; MONOCYTE ABSOLUTE 0.3 Th/cmm (0.3-1.0); NEUTROPHILE ABSOLUTE 7.6 Th/cmm (1.8-8.0); PLATELET COUNT 169 Th/cmm (150-400); RED BLOOD COUNT 3.23 Mil/cmm (4.30-5.70); RED CELL DISTRIBUTION WIDTH 14.9 % (11.5-20.0)
[2017-06-05 06:02] LABS: WHITE BLOOD COUNT 8.5 Th/cmm (4.8-10.8)
[2017-06-05 06:13] LABS: BUN - UREA NITROGEN 24 mg/dL (7-25); CALCIUM SERUM 7.8 mg/dL (8.6-10.3); CARBON DIOXIDE 30.8 mEq/L (21.0-31.0); CHLORIDE 106 mEq/L (98-107); CREATININE - SERUM 0.3 mg/dL (0.7-1.3); GFR AFRICAN-AMERICAN > 60.0 ml/min (>90); GFR NON AFRICAN-AMERICAN > 60.0 ml/min; GLUCOSE 161 mg/dL (70-105); POTASSIUM SERUM 3.8 mEq/L (3.5-5.1); SODIUM SERUM 141 mEq/L (136-145)
[2017-06-05] MEDS: Dextrose 5% 1,000 ML IV SCH ×2 (06:24→09:48)
[2017-06-05] MEDS: Albuterol Nebulizer 2.5mg/3mL HHN SCH ×4 (08:13→20:18)
[2017-06-05] MEDS: Ipratropium Neb 0.5 mg/2.5 mL UD HHN SCH ×4 (08:13→20:18)
[2017-06-05] MEDS: Chlorhexidine Gluconate 0.12% 15mL Mouthwash MM SCH ×2 (08:30→21:17)
--- NOTE | 2017-06-05 08:31 | Diagnostic Imaging Report ---
CHEST X-RAY: AP view INDICATION: Shortness of breath COMPARISON: 06/04/2017 FINDINGS: ET tube is seen with tip 5.2 cm above the [place]. Suboptimal lung volumes are seen with increased bibasilar lung markings and probable small effusions. Heart size is normal. IMPRESSION: Suboptimal lung volumes increased bibasal lung markings which may represent atelectasis versus infiltrates.
[2017-06-05] MEDS: Multivitamin Tab GT SCH (09:19)
[2017-06-05] MEDS: Lactulose 10 Gm/15 mL 30mL UDC PO SCH (09:20)
[2017-06-05] MEDS: Venelex 60gm Tube TP SCH (09:30)
[2017-06-05 10:55] LABS: INF A SCREEN NEG FOR INF A; INF B SCREEN NEG FOR INF B
--- NOTE | 2017-06-05 16:06 | Internal Medicine Prog Note ---
Internal Medicine Subjective - Subjective Service Date: 06/05/17 Patient seen and examined:: with staff Patient is:: awake, non-verbal, non-interactive, in bed, other Patient Complaints of:: congestion Per staff patient has:: tolerating meds Internal Medicine Objective - Results Result Diagrams: 06/05/17 05:48 06/05/17 05:48 Recent Labs: Laboratory Last Values WBC 8.5 Th/cmm (4.8-10.8) D 06/05/17 05:48 RBC 3.23 Mil/cmm (4.30-5.70) L 06/05/17 05:48 Hgb 9.8 gm/dL (12-16) L 06/05/17 05:48 Hct 29.0 % (41.0-60) L 06/05/17 05:48 MCV 89.6 fl (80-99) 06/05/17 05:48 MCH 30.2 pg (26.0-30.0) H 06/05/17 05:48 MCHC Differential 33.7 pg (28.0-36.0) 06/05/17 05:48 RDW 14.9 % (11.5-20.0) 06/05/17 05:48 Plt Count 169 Th/cmm (150-400) 06/05/17 05:48 MPV 9.6 fl 06/05/17 05:48 Neutrophils % 89.7 % (40.0-80.0) H 06/05/17 05:48 Lymphocytes % 6.6 % (20.0-50.0) L 06/05/17 05:48 Monocytes % 3.6 % (2.0-10.0) 06/05/17 05:48 Eosinophils % 0.1 % (0.0-5.0) 06/05/17 05:48 Basophils % 0.0 % (0.0-2.0) 06/05/17 05:48 Specimen Source Arterial 06/02/17 09:10 Sample Site Right Radial 06/02/17 09:10 pH 7.50 (7.35-7.45) H 06/02/17 09:10 pCO2 39.0 mmHg (35.0-45.0) 06/02/17 09:10 pO2 72.0 mmHg (80.0-100.0) L 06/02/17 09:10 HCO3 30.1 mEq/L (20.0-26.0) H 06/02/17 09:10 Base Excess 6.7 mEq/L (-3.0-3.0) H 06/02/17 09:10 O2 Saturation 96.0 % (92.0-100.0) 06/02/17 09:10 Endy Test PASS 06/02/17 09:10 Vent Rate 10 06/02/17 09:10 Inspired O2 30 06/02/17 09:10 Tidal Volume 500 06/02/17 09:10 PEEP 0 06/01/17 09:00 Pressure (ins/psv/peep) NA 06/01/17 09:00 Critical Value PW 06/02/17 09:10 Sodium 141 mEq/L (136-145) 06/05/17 05:48 Potassium 3.8 mEq/L (3.5-5.1) 06/05/17 05:48 Chloride 106 mEq/L (98-107) 06/05/17 05:48 Carbon Dioxide 30.8 mEq/L (21.0-31.0) 06/05/17 05:48 Anion Gap 8.0 (7.0-16.0) 06/05/17 05:48 BUN 24 mg/dL (7-25) 06/05/17 05:48 Creatinine 0.3 mg/dL (0.7-1.3) L 06/05/17 05:48 Est GFR ( Amer) > 60.0 ml/min (>90) 06/05/17 05:48 Est GFR (Non-Af Amer) > 60.0 ml/min 06/05/17 05:48 BUN/Creatinine Ratio 80.0 06/05/17 05:48 Glucose 161 mg/dL (70-105) H 06/05/17 05:48 POC Glucose 213 MG/DL (70 - 105) H 06/01/17 06:53 Hemoglobin A1c % 5.1 % (4.0-6.0) 06/01/17 05:30 Whole Bld Lactic Acid 3.45 mmol/L (0.60-1.99) H* 06/03/17 06:45 Calcium 7.8 mg/dL (8.6-10.3) L 06/05/17 05:48 Magnesium 1.9 mg/dL (1.9-2.7) 06/04/17 06:45 Total Bilirubin 0.3 mg/dL (0.3-1.0) 06/04/17 06:45 AST 29 U/L (13-39) 06/04/17 06:45 ALT 41 U/L (7-52) 06/04/17 06:45 Alkaline Phosphatase 57 U/L (34-104) 06/04/17 06:45 Ammonia 64 umol/L (16-53) H 06/04/17 06:45 B-Natriuretic Peptide 129.0 pg/mL (5.0-100.0) H 06/04/17 06:45 Total Protein 4.3 gm/dL (6.0-8.3) L 06/04/17 06:45 Albumin 2.1 gm/dL (4.2-5.5) L 06/04/17 06:45 Globulin 2.2 gm/dL 06/04/17 06:45 Albumin/Globulin Ratio 1.0 (1.0-1.8) 06/04/17 06:45 TSH 0.72 uIU/ml (0.34-5.60) 06/01/17 05:30 Urine Source CATH 05/31/17 12:35 Urine Color YELLOW 05/31/17 12:35 Urine Clarity CLOUDY (CLEAR) 05/31/17 12:35 Urine pH 8.5 (4.6 - 8.0) 05/31/17 12:35 Ur Specific [place] 1.010 (1.005-1.030) 05/31/17 12:35 Urine Protein 30 mg/dL (NEGATIVE) H 05/31/17 12:35 Urine Glucose (UA) NEGATIVE mg/dL (NEGATIVE) 05/31/17 12:35 Urine Ketones NEGATIVE mg/dL (NEGATIVE) 05/31/17 12:35 Urine Blood MODERATE (NEGATIVE) H 05/31/17 12:35 Urine Nitrate NEGATIVE (NEGATIVE) 05/31/17 12:35 Urine Bilirubin NEGATIVE (NEGATIVE) 05/31/17 12:35 Urine Urobilinogen 0.2 E.U./dL (0.2 - 1.0) 05/31/17 12:35 Ur Leukocyte Esterase NEGATIVE (NEGATIVE) 05/31/17 12:35 Urine RBC >100 /hpf (0-5) H 05/31/17 12:35 Urine WBC 2-5 /hpf (0-5) H 05/31/17 12:35 Ur Epithelial Cells NONE SEEN /lpf (FEW) 05/31/17 12:35 Urine Bacteria NONE SEEN /hpf (NONE SEEN) 05/31/17 12:35 Stool Occult Blood NEGATIVE (NEGATIVE) 06/05/17 06:00 Gentamicin Peak 11.9 ug/ml (4.0-8.0) H 06/04/17 02:00 Gentamicin Trough 5.9 ug/ml (0.2-2.0) H 06/03/17 23:25 Vancomycin Trough 10.7 ug/mL (10-20) 06/04/17 09:00 Influenza A (Rapid) NEG FOR INF A 06/05/17 08:00 Influenza B (Rapid) NEG FOR INF B 06/05/17 08:00 Blood Type O POSITIVE 06/02/17 11:40 Antibody Screen NEGATIVE 06/02/17 11:40 Crossmatch See Detail 06/02/17 11:40 - Physical Exam Vitals and I&O: Vital Signs Temp 96.9 F 06/05/17 12:00 Pulse 76 06/05/17 15:45 Resp 14 06/05/17 14:00 BP 102/56 06/05/17 14:00 Pulse Ox 100 06/05/17 15:45 Intake & Output 06/04/17 06/05/17 06/05/17 18:59 06:59 18:59 Intake Total 1270 2355.333 272 Output Total 878 1325 125 Balance 392 1030.333 147 Weight (lbs) 139 lb 106 lb 106 lb Intake: Intake, IV Amount 200 1285.333 272 Dextrose 5% 1,000 ml @ 80 1085.333 272 mls/hr IV .[id number] [facility] Rx#:[id number] Meropenem 1 gm In 200 200 Dextrose 5% 100 ml @ 100 mls/hr IV Q8HR [facility] Rx#: [id number] Tube Feeding 1070 870 Other 200 Output: Urine 875 1325 125 Stool 3 Other: # Bowel Movements 1 1 Stool Characteristics Soft Formed Active Medications: Current Medications Acetaminophen (Tylenol 650mg Supp) 650 mg RC Q4HR PRN PRN Reason: FEVER >100.1 Stop: 07/30/17 13:39 Acetaminophen (Tylenol) 325 mg PO Q6H PRN PRN Reason: PAIN/FEVER Stop: 07/30/17 16:47 Albuterol Sulfate (Albuterol 2.5mg/3ml Neb Ud) 1.25 mg HHN QIDRT [facility] Stop: 07/30/17 14:59 Last Admin: 06/05/17 15:38 Dose: 1.25 mg Ascorbic Acid (Vitamin C) 500 mg GT DAILY [facility] Stop: 07/31/17 08:59 Last Admin: 06/05/17 09:19 Dose: 500 mg Bisacodyl (Dulcolax 10 Mg Supp) 10 mg RC Q72HR PRN PRN Reason: Constipation Stop: 07/30/17 13:39 [place] Oil/[place] Balsam/Trypsin (Venelex) 1 appl TP BID [facility] Stop: 07/31/17 16:59 Last Admin: 06/05/17 09:30 Dose: 1 appl Chlorhexidine Gluconate (Peridex) 15 ml MM 0800,2000 [facility] Stop: 07/31/17 19:59 Last Admin: 06/05/17 08:30 Dose: 15 ml Cholecalciferol (Vitamin D3) 500 iu PO DAILY [facility] Stop: 07/31/17 08:59 Last Admin: 06/05/17 09:19 Dose: 500 iu Diltiazem HCl (Cardizem) 20 mg IVP Q4H PRN PRN Reason: HR Greater than 130 per min Stop: 07/30/17 13:40 Last Admin: 05/31/17 21:55 Dose: 20 mg Famotidine (Pepcid) 20 mg IVP Q12H [facility] Stop: 07/31/17 12:44 Last Admin: 06/05/17 12:42 Dose: 20 mg Guaifenesin (Robitussin) 200 mg PO Q4HR PRN PRN Reason: Cough or Congestion Stop: 07/30/17 13:41 Heparin Sodium (Porcine) (Heparin) 5,000 units SUBQ Q12H [facility] Stop: 07/31/17 20:59 Last Admin: 06/05/17 09:19 Dose: 5,000 units Dextrose (D5w) 1,000 mls @ 0 mls/hr IV .Q0M [facility] PRN Reason: Wide Open Stop: 07/31/17 16:46 Last Infusion: 06/01/17 19:08 Dose: Infused Norepinephrine Bitartrate 4 mg (/ Dextrose) 254 mls @ 30.48 mls/hr IV TITR PRN ; Protocol; 8 MCG/MIN PRN Reason: BP MAINTENANCE (PER PROTOCOL) Stop: 07/31/17 16:46 Last Titration: 06/03/17 00:00 Dose: 0 mcg/min, 0 mls/hr Dextrose (D5w) 1,000 mls @ 80 mls/hr IV .[id number] [facility] Stop: 08/01/17 17:38 Last Admin: 06/05/17 09:48 Dose: 80 mls/hr Meropenem 1 gm/ Dextrose 100 mls @ 100 mls/hr IV Q8HR [facility] Stop: 08/02/17 12:59 Last Admin: 06/05/17 12:37 Dose: 100 mls/hr Gentamicin Sulfate 120 mg/ (Sodium Chloride) 103 mls @ 100 mls/hr IV Q24H [facility] Stop: 08/04/17 08:59 Last Admin: 06/05/17 09:44 Dose: 100 mls/hr Ipratropium [place] (Atrovent Neb 0.5mg/2.5ml) 0.5 mg HHN QIDRT [facility] Stop: 08/03/17 18:59 Last Admin: 06/05/17 15:38 Dose: 0.5 mg Lactulose (Cephulac) 30 gm PO BID [facility] Stop: 08/03/17 16:59 Last Admin: 06/05/17 09:20 Dose: 30 gm Lorazepam (Ativan) 1 mg IV Q4H PRN; Protocol PRN Reason: Seizure Stop: 07/30/17 13:40 Last Admin: 06/02/17 22:27 Dose: 1 mg Methylprednisolone Sodium Succinate (Solu-Medrol) 40 mg IVP Q8HR [facility] Stop: 07/30/17 20:59 Miscellaneous (Vte Chemical Prophylaxis Screen/ Admission) 1 ea PRN PRN PRN Reason: PROTOCOL Stop: 07/31/17 14:00 Miscellaneous (Probiotic Screen) 1 ea PRN PRN PRN Reason: PROTOCOL Stop: 07/31/17 16:02 Miscellaneous (Gentamicin Iv Per Pharmacy) 1 ea PRN PRN PRN Reason: PROTOCOL Stop: 06/05/17 19:13 Multivitamins/Vitamin C (Theragran) 1 tab GT DAILY [facility] Stop: 07/31/17 08:59 Last Admin: 06/05/17 09:19 Dose: 1 tab Ondansetron HCl (Zofran) 4 mg IV Q8H PRN PRN Reason: Nausea / Vomiting Stop: 07/30/17 13:41 Sodium Phosphate (Fleet Enema) 133 ml RC DAILY PRN PRN Reason: Constipation Stop: 07/30/17 13:39 General: weak HEENT: NC/AT, PERRLA Neck: No LAD Lungs: ronchi Cardiovascular: RRR, Normal S1, Normal S2, without murmur Abdomen: soft, non-tender, non-distended, +GT, positive bowel sound Extremities: excoriation, ecchymosis, contracture, deformity, atrophy Neurological: unable to follow command - Procedures Procedures: Procedures Procedure Code Date INSERT EMERGENCY AIRWAY 35200 05/31/17 INSERTION OF ENDOTRACHEAL AIRWAY INTO [place], VIA OPENING [id number] 05/31/17 RESPIRATORY VENTILATION, LESS THAN 24 CONSECUTIVE HOURS [id number] 05/31/17 VENT MGMT INPAT INIT DAY [id number] 05/31/17 Internal Medicine Assmt/Plan - Assessment Assessment: S/p cardiopulmonary arrest, now intubated on vent lactic acidosis Acute Respiratory Failure Sepsis PNA leukocytosis hypokalemia acute renal insufficiency spastic quadriplegia seizures - Plan Plan: vent support inhalation treatments empiric ivantibiotics pulmo follow up continue current plan of care Nutritional Asmnt/Malnutr-PDOC - Dietary Evaluation Malnutrition Findings (Please click <Entered> for more info): Nutritional Asmnt/Malnutrition Start: 06/01/17 17: 31 Text: Status: Complete Freq: Document 06/01/17 17:31 LCHENG (Rec: 06/01/17 17:45 LCHENG [id number]) Nutritional Asmnt/Malnutrition Patient General Information Nutritional Screening High Risk Consult Diagnosis renal failure, prespiratory failure r/o PNA Pertinent Medical Hx/Surgical Hx dementia, MR anemia, spastic quadriplegia, cerebral palsy, seizure, aspiration PNA, s/p respiratory failure, spsis, hyponatremia, gastroenteritis, PEG Subjective Information Consult received for [place] 13 and pressure ulcer. Pt seen resting in bed at the time of visit, intubated, non-verbal noted. TF not running at this time. Current Diet Order/ Nutrition Support Isosource 1.5 87ml/hr x 17hr Pertinent Medications vitamin C, vitamin D3, D5w, teragran, piperacillin, miralax, cancomycin Pertinent Labs 06/01 na 160, Cl 120, K 4.1, BUN 29, Cr 0.3, Glucose 242, A1c 5.1, Ca 8.4, Mg 2.8 Nutritional Hx/Data Height 5 ft 6 in Height (Calculated Centimeters) 167.6 Current Weight (lbs) 105 lb 8 oz Weight (Calculated Kilograms) 47.9 Weight (Calculated Grams) 72484.0 Power Body Weight 142 % Power Body Weight 94 Body Mass Index (BMI) 17.0 Weight Status Underweight GI Symptoms GI Symptoms None Last BM none Difficult in: None Usual diet at home Jevity 1.5 87ml/hr x 17hr Skin Integrity/Comment: decubitus ulceration to sacrum Estimated Nutritional Goals Calories/Kcals/Kg 25-30 Kcals Calculated [id number] based on IBW 65kg Protein g/k.2-1.4 Protein Calculated 78-91 consider respiratory failure and skin probelm Nutritional Problem 1. Problem Problem excessive intake from enteral feeding Etiology current TF regimen providing excessive calorie and protein than estimated nutritional needs Signs/Symptoms: current TF providing 114% of calorie needs and 110% of protein needs Malnutrition Alert Protein-Calorie Malnutrition N/A Is there a minimum of two criteria No selected? Query Text:Check all the applicable criteria. A minimum of two criteria are recommended for diagnosis of either severe or non-severe malnutrition. Intervention/Recommendation Comments 1. Recommend modify TF rate to 70ml/hr x 17hr to meet 100% of nutritional needs and avoid overfeeding. 2. Monitor TF rate, tolerance, wt weekly, skin integrity and labs 3. F/U as moderate risk in 3-5 days, 04/25-04/27 Expected Outcomes/Goals Expected Outcomes/Goals 1. Pt to meet 75-100% of nutritional needs via nutrition support with tolerance 2. 2. Wt stability, skin to remain intact, labs to approach WNL.
[2017-06-05] MEDS: methylPREDNISolone SS 40 mg Vial IVP SCH (21:18)
[2017-06-06] MEDS: Dextrose 5% 1,000 ML IV SCH ×2 (00:27→18:14)
[2017-06-06] MEDS: methylPREDNISolone SS 40 mg Vial IVP SCH ×3 (05:21→20:48)
[2017-06-06] MEDS: Ipratropium Neb 0.5 mg/2.5 mL UD HHN SCH ×4 (07:53→19:11)
[2017-06-06] MEDS: Albuterol Nebulizer 2.5mg/3mL HHN SCH ×3 (07:53→16:27)
[2017-06-06] MEDS: Chlorhexidine Gluconate 0.12% 15mL Mouthwash MM SCH ×2 (08:08→19:42)
[2017-06-06 08:20] LABS: HEMATOCRIT 28.7 % (41.0-60); HEMOGLOBIN 9.8 gm/dL (12-16); MEAN CELL VOLUME 89.6 fl (80-99); MEAN CORPUSCULAR HEMOGLOBIN 30.8 pg (26.0-30.0); MEAN CORPUSCULAR HGB CONC 34.3 pg (28.0-36.0); MEAN PLATELET VOLUME 9.7 fl; PLATELET COUNT 145 Th/cmm (150-400)
[2017-06-06 08:22] LABS: WHITE BLOOD COUNT 11.3 Th/cmm (4.8-10.8)
[2017-06-06 08:23] LABS: LYMPHOCYTE ABSOLUTE 0.4 Th/cmm (1.5-3.0); MONOCYTE ABSOLUTE 0.2 Th/cmm (0.3-1.0); NEUTROPHILE ABSOLUTE 10.7 Th/cmm (1.8-8.0)
[2017-06-06 08:41] LABS: BUN - UREA NITROGEN 22 mg/dL (7-25); CALCIUM SERUM 7.7 mg/dL (8.6-10.3); CHLORIDE 103 mEq/L (98-107); CREATININE - SERUM 0.3 mg/dL (0.7-1.3); GFR AFRICAN-AMERICAN > 60.0 ml/min (>90); GFR NON AFRICAN-AMERICAN > 60.0 ml/min; GLUCOSE 165 mg/dL (70-105); SODIUM SERUM 140 mEq/L (136-145)
[2017-06-06] MEDS: Lactulose 10 Gm/15 mL 30mL UDC PO SCH ×2 (09:00→17:15)
[2017-06-06] MEDS: Venelex 60gm Tube TP SCH ×2 (09:24→17:14)
[2017-06-06] MEDS: Multivitamin Tab GT SCH (09:25)
--- NOTE | 2017-06-06 14:02 | Internal Medicine Prog Note ---
Internal Medicine Subjective - Subjective Service Date: 06/06/17 Patient is:: awake, non-verbal, non-interactive, in bed, other Patient Complaints of:: congestion Per staff patient has:: tolerating meds Internal Medicine Objective - Results Result Diagrams: 06/06/17 08:00 06/06/17 08:00 Recent Labs: Laboratory Last Values WBC 11.3 Th/cmm (4.8-10.8) H D 06/06/17 08:00 RBC 3.20 Mil/cmm (4.30-5.70) L 06/06/17 08:00 Hgb 9.8 gm/dL (12-16) L 06/06/17 08:00 Hct 28.7 % (41.0-60) L 06/06/17 08:00 MCV 89.6 fl (80-99) 06/06/17 08:00 MCH 30.8 pg (26.0-30.0) H 06/06/17 08:00 MCHC Differential 34.3 pg (28.0-36.0) 06/06/17 08:00 RDW 15.0 % (11.5-20.0) 06/06/17 08:00 Plt Count 145 Th/cmm (150-400) L 06/06/17 08:00 MPV 9.7 fl 06/06/17 08:00 Neutrophils % 89.7 % (40.0-80.0) H 06/05/17 05:48 Lymphocytes % 6.6 % (20.0-50.0) L 06/05/17 05:48 Monocytes % 3.6 % (2.0-10.0) 06/05/17 05:48 Eosinophils % 0.1 % (0.0-5.0) 06/05/17 05:48 Basophils % 0.0 % (0.0-2.0) 06/05/17 05:48 Specimen Source Arterial 06/02/17 09:10 Sample Site Right Radial 06/02/17 09:10 pH 7.50 (7.35-7.45) H 06/02/17 09:10 pCO2 39.0 mmHg (35.0-45.0) 06/02/17 09:10 pO2 72.0 mmHg (80.0-100.0) L 06/02/17 09:10 HCO3 30.1 mEq/L (20.0-26.0) H 06/02/17 09:10 Base Excess 6.7 mEq/L (-3.0-3.0) H 06/02/17 09:10 O2 Saturation 96.0 % (92.0-100.0) 06/02/17 09:10 Endy Test PASS 06/02/17 09:10 Vent Rate 10 06/02/17 09:10 Inspired O2 30 06/02/17 09:10 Tidal Volume 500 06/02/17 09:10 PEEP 0 06/01/17 09:00 Pressure (ins/psv/peep) NA 06/01/17 09:00 Critical Value PW 06/02/17 09:10 Sodium 140 mEq/L (136-145) 06/06/17 08:00 Potassium 4.0 mEq/L (3.5-5.1) 06/06/17 08:00 Chloride 103 mEq/L (98-107) 06/06/17 08:00 Carbon Dioxide 30.0 mEq/L (21.0-31.0) 06/06/17 08:00 Anion Gap 11.0 (7.0-16.0) 06/06/17 08:00 BUN 22 mg/dL (7-25) 06/06/17 08:00 Creatinine 0.3 mg/dL (0.7-1.3) L 06/06/17 08:00 Est GFR ( Amer) > 60.0 ml/min (>90) 06/06/17 08:00 Est GFR (Non-Af Amer) > 60.0 ml/min 06/06/17 08:00 BUN/Creatinine Ratio 73.3 06/06/17 08:00 Glucose 165 mg/dL (70-105) H 06/06/17 08:00 POC Glucose 213 MG/DL (70 - 105) H 06/01/17 06:53 Hemoglobin A1c % 5.1 % (4.0-6.0) 06/01/17 05:30 Whole Bld Lactic Acid 3.45 mmol/L (0.60-1.99) H* 06/03/17 06:45 Calcium 7.7 mg/dL (8.6-10.3) L 06/06/17 08:00 Magnesium 1.9 mg/dL (1.9-2.7) 06/04/17 06:45 Total Bilirubin 0.3 mg/dL (0.3-1.0) 06/04/17 06:45 AST 29 U/L (13-39) 06/04/17 06:45 ALT 41 U/L (7-52) 06/04/17 06:45 Alkaline Phosphatase 57 U/L (34-104) 06/04/17 06:45 Ammonia 64 umol/L (16-53) H 06/04/17 06:45 B-Natriuretic Peptide 129.0 pg/mL (5.0-100.0) H 06/04/17 06:45 Total Protein 4.3 gm/dL (6.0-8.3) L 06/04/17 06:45 Albumin 2.1 gm/dL (4.2-5.5) L 06/04/17 06:45 Globulin 2.2 gm/dL 06/04/17 06:45 Albumin/Globulin Ratio 1.0 (1.0-1.8) 06/04/17 06:45 TSH 0.72 uIU/ml (0.34-5.60) 06/01/17 05:30 Urine Source CATH 05/31/17 12:35 Urine Color YELLOW 05/31/17 12:35 Urine Clarity CLOUDY (CLEAR) 05/31/17 12:35 Urine pH 8.5 (4.6 - 8.0) 05/31/17 12:35 Ur Specific [place] 1.010 (1.005-1.030) 05/31/17 12:35 Urine Protein 30 mg/dL (NEGATIVE) H 05/31/17 12:35 Urine Glucose (UA) NEGATIVE mg/dL (NEGATIVE) 05/31/17 12:35 Urine Ketones NEGATIVE mg/dL (NEGATIVE) 05/31/17 12:35 Urine Blood MODERATE (NEGATIVE) H 05/31/17 12:35 Urine Nitrate NEGATIVE (NEGATIVE) 05/31/17 12:35 Urine Bilirubin NEGATIVE (NEGATIVE) 05/31/17 12:35 Urine Urobilinogen 0.2 E.U./dL (0.2 - 1.0) 05/31/17 12:35 Ur Leukocyte Esterase NEGATIVE (NEGATIVE) 05/31/17 12:35 Urine RBC >100 /hpf (0-5) H 05/31/17 12:35 Urine WBC 2-5 /hpf (0-5) H 05/31/17 12:35 Ur Epithelial Cells NONE SEEN /lpf (FEW) 05/31/17 12:35 Urine Bacteria NONE SEEN /hpf (NONE SEEN) 05/31/17 12:35 Stool Occult Blood NEGATIVE (NEGATIVE) 06/05/17 06:00 Gentamicin Peak 11.9 ug/ml (4.0-8.0) H 06/04/17 02:00 Gentamicin Trough 5.9 ug/ml (0.2-2.0) H 06/03/17 23:25 Vancomycin Trough 10.7 ug/mL (10-20) 06/04/17 09:00 Influenza A (Rapid) NEG FOR INF A 06/05/17 08:00 Influenza B (Rapid) NEG FOR INF B 06/05/17 08:00 Blood Type O POSITIVE 06/02/17 11:40 Antibody Screen NEGATIVE 06/02/17 11:40 Crossmatch See Detail 06/02/17 11:40 - Physical Exam Vitals and I&O: Vital Signs Temp 97.8 F 06/06/17 04:00 Pulse 80 06/06/17 13:38 Resp 13 06/06/17 06:00 BP 110/67 06/06/17 06:00 Pulse Ox 99 06/06/17 13:38 Intake & Output 06/05/17 06/06/17 06/06/17 18:59 06:59 18:59 Intake Total 1075 2144 203 Output Total 1475 1200 Balance -400 944 203 Weight (lbs) 106 lb 106 lb Intake: Intake, IV Amount 475 1100 203 Dextrose 5% 1,000 ml @ 80 272 1000 mls/hr IV .[id number] [facility] Rx#:[id number] Gentamicin 120 mg In 103 103 Sodium Chloride 0.9% 100 ml @ 100 mls/hr IV Q24H [facility] Rx#:[id number] Meropenem 1 gm In 100 100 100 Dextrose 5% 100 ml @ 100 mls/hr IV Q8HR [facility] Rx#: [id number] Tube Feeding 600 1044 Output: Urine 1475 1200 Other: # Bowel Movements 3 2 Stool Characteristics Soft Soft Formed Formed Active Medications: Current Medications Acetaminophen (Tylenol 650mg Supp) 650 mg RC Q4HR PRN PRN Reason: FEVER >100.1 Stop: 07/30/17 13:39 Acetaminophen (Tylenol) 325 mg PO Q6H PRN PRN Reason: PAIN/FEVER Stop: 07/30/17 16:47 Albuterol Sulfate (Albuterol 2.5mg/3ml Neb Ud) 1.25 mg HHN QIDRT [facility] Stop: 07/30/17 14:59 Last Admin: 06/06/17 11:24 Dose: 1.25 mg Ascorbic Acid (Vitamin C) 500 mg GT DAILY [facility] Stop: 07/31/17 08:59 Last Admin: 06/06/17 09:25 Dose: 500 mg Bisacodyl (Dulcolax 10 Mg Supp) 10 mg RC Q72HR PRN PRN Reason: Constipation Stop: 07/30/17 13:39 [place] Oil/[place] Balsam/Trypsin (Venelex) 1 appl TP BID [facility] Stop: 07/31/17 16:59 Last Admin: 06/06/17 09:24 Dose: 1 appl Chlorhexidine Gluconate (Peridex) 15 ml MM 0800,1999 [facility] Stop: 07/31/17 19:59 Last Admin: 06/06/17 08:08 Dose: 15 ml Cholecalciferol (Vitamin D3) 500 iu PO DAILY [facility] Stop: 07/31/17 08:59 Last Admin: 06/06/17 09:25 Dose: 500 iu Diltiazem HCl (Cardizem) 20 mg IVP Q4H PRN PRN Reason: HR Greater than 130 per min Stop: 07/30/17 13:40 Last Admin: 05/31/17 21:55 Dose: 20 mg Famotidine (Pepcid) 20 mg IVP Q12H [facility] Stop: 07/31/17 12:44 Last Admin: 06/06/17 12:55 Dose: 20 mg Guaifenesin (Robitussin) 200 mg PO Q4HR PRN PRN Reason: Cough or Congestion Stop: 07/30/17 13:41 Heparin Sodium (Porcine) (Heparin) 5,000 units SUBQ Q12H [facility] Stop: 07/31/17 20:59 Last Admin: 06/06/17 09:24 Dose: 5,000 units Dextrose (D5w) 1,000 mls @ 0 mls/hr IV .Q0M [facility] PRN Reason: Wide Open Stop: 07/31/17 16:46 Last Infusion: 06/01/17 19:08 Dose: Infused Norepinephrine Bitartrate 4 mg (/ Dextrose) 254 mls @ 30.48 mls/hr IV TITR PRN ; Protocol; 8 MCG/MIN PRN Reason: BP MAINTENANCE (PER PROTOCOL) Stop: 07/31/17 16:46 Last Titration: 06/03/17 00:00 Dose: 0 mcg/min, 0 mls/hr Dextrose (D5w) 1,000 mls @ 80 mls/hr IV .[id number] [facility] Stop: 08/01/17 17:38 Last Admin: 06/06/17 00:27 Dose: 80 mls/hr Meropenem 1 gm/ Dextrose 100 mls @ 100 mls/hr IV Q8HR [facility] Stop: 08/02/17 12:59 Last Admin: 06/06/17 12:55 Dose: 100 mls/hr Gentamicin Sulfate 120 mg/ (Sodium Chloride) 103 mls @ 100 mls/hr IV Q24H [facility] Stop: 08/04/17 08:59 Last Infusion: 06/06/17 11:09 Dose: Infused Ipratropium [place] (Atrovent Neb 0.5mg/2.5ml) 0.5 mg HHN QIDRT [facility] Stop: 08/03/17 18:59 Last Admin: 06/06/17 11:24 Dose: 0.5 mg Lactulose (Cephulac) 30 gm PO BID [facility] Stop: 08/03/17 16:59 Last Admin: 06/06/17 09:00 Dose: Not Given Lorazepam (Ativan) 1 mg IV Q4H PRN; Protocol PRN Reason: Seizure Stop: 07/30/17 13:40 Last Admin: 06/02/17 22:27 Dose: 1 mg Methylprednisolone Sodium Succinate (Solu-Medrol) 40 mg IVP Q8HR [facility] Stop: 07/30/17 20:59 Last Admin: 06/06/17 12:55 Dose: 40 mg Miscellaneous (Vte Chemical Prophylaxis Screen/ Admission) 1 ea MC PRN PRN PRN Reason: PROTOCOL Stop: 07/31/17 14:00 Miscellaneous (Probiotic Screen) 1 ea MC PRN PRN PRN Reason: PROTOCOL Stop: 07/31/17 16:02 Multivitamins/Vitamin C (Theragran) 1 tab GT DAILY [facility] Stop: 07/31/17 08:59 Last Admin: 06/06/17 09:25 Dose: 1 tab Ondansetron HCl (Zofran) 4 mg IV Q8H PRN PRN Reason: Nausea / Vomiting Stop: 07/30/17 13:41 Sodium Phosphate (Fleet Enema) 133 ml RC DAILY PRN PRN Reason: Constipation Stop: 07/30/17 13:39 General: weak HEENT: NC/AT, PERRLA Neck: No LAD Lungs: ronchi Cardiovascular: RRR, Normal S1, Normal S2, without murmur Abdomen: soft, non-tender, non-distended, +GT, positive bowel sound Extremities: excoriation, ecchymosis, contracture, deformity, atrophy Neurological: unable to follow command - Procedures Procedures: Procedures Procedure Code Date INSERT EMERGENCY AIRWAY 17994 05/31/17 INSERTION OF ENDOTRACHEAL AIRWAY INTO [place], VIA OPENING [id number] 05/31/17 RESPIRATORY VENTILATION, LESS THAN 24 CONSECUTIVE HOURS [id number] 05/31/17 VENT MGMT INPAT INIT DAY 42229 05/31/17 Internal Medicine Assmt/Plan - Assessment Assessment: S/p cardiopulmonary arrest, now intubated on vent lactic acidosis Acute Respiratory Failure Sepsis PNA leukocytosis hypokalemia acute renal insufficiency spastic quadriplegia seizures - Plan Plan: weaning as tolerated vent support inhalation treatments empiric ivantibiotics pulmo follow up continue current plan of care Nutritional Asmnt/Malnutr-PDOC - Dietary Evaluation Malnutrition Findings (Please click <Entered> for more info): Nutritional Asmnt/Malnutrition Start: 06/01/17 17: 31 Text: Status: Complete Freq: Document 06/01/17 17:31 LCHENG (Rec: 06/01/17 17:45 LCHENG [email or web address]) Nutritional Asmnt/Malnutrition Patient General Information Nutritional Screening High Risk Consult Diagnosis renal failure, prespiratory failure r/o PNA Pertinent Medical Hx/Surgical Hx dementia, MR anemia, spastic quadriplegia, cerebral palsy, seizure, aspiration PNA, s/p respiratory failure, spsis, hyponatremia, gastroenteritis, PEG Subjective Information Consult received for Anibal 13 and pressure ulcer. Pt seen resting in bed at the time of visit, intubated, non-verbal noted. TF not running at this time. Current Diet Order/ Nutrition Support Isosource 1.5 87ml/hr x 17hr Pertinent Medications vitamin C, vitamin D3, D5w, teragran, piperacillin, miralax, cancomycin Pertinent Labs 06/01 na 160, Cl 120, K 4.1, BUN 29, Cr 0.3, Glucose 242, A1c 5.1, Ca 8.4, Mg 2.8 Nutritional Hx/Data Height 5 ft 6 in Height (Calculated Centimeters) 167.6 Current Weight (lbs) 105 lb 8 oz Weight (Calculated Kilograms) 47.9 Weight (Calculated Grams) 35415.0 [place] Body Weight 142 % [place] Body Weight 94 Body Mass Index (BMI) 17.0 Weight Status Underweight GI Symptoms GI Symptoms None Last BM none Difficult in: None Usual diet at home Jevity 1.5 87ml/hr x 17hr Skin Integrity/Comment: decubitus ulceration to sacrum Estimated Nutritional Goals Calories/Kcals/Kg 25-30 Kcals Calculated [id number] based on IBW 65kg Protein g/k.2-1.4 Protein Calculated 78-91 consider respiratory failure and skin probelm Nutritional Problem 1. Problem Problem excessive intake from enteral feeding Etiology current TF regimen providing excessive calorie and protein than estimated nutritional needs Signs/Symptoms: current TF providing 114% of calorie needs and 110% of protein needs Malnutrition Alert Protein-Calorie Malnutrition N/A Is there a minimum of two criteria No selected? Query Text:Check all the applicable criteria. A minimum of two criteria are recommended for diagnosis of either severe or non-severe malnutrition. Intervention/Recommendation Comments 1. Recommend modify TF rate to 70ml/hr x 17hr to meet 100% of nutritional needs and avoid overfeeding. 2. Monitor TF rate, tolerance, wt weekly, skin integrity and labs 3. F/U as moderate risk in 3-5 days, 04/25-04/27 Expected Outcomes/Goals Expected Outcomes/Goals 1. Pt to meet 75-100% of nutritional needs via nutrition support with tolerance 2. 2. Wt stability, skin to remain intact, labs to approach WNL.
--- NOTE | 2017-06-07 | Infectious Disease Prog Note ---
Infectious Disease Subjective - Review of Systems Service Date: 06/06/17 Subjective: No change. No fever. Infectious Disease Objective - Results Result Diagrams: 06/07/17 06:30 06/07/17 06:30 Recent Labs: Laboratory Last Values WBC 11.3 Th/cmm (4.8-10.8) H D 06/06/17 08:00 RBC 3.20 Mil/cmm (4.30-5.70) L 06/06/17 08:00 Hgb 9.8 gm/dL (12-16) L 06/06/17 08:00 Hct 28.7 % (41.0-60) L 06/06/17 08:00 MCV 89.6 fl (80-99) 06/06/17 08:00 MCH 30.8 pg (26.0-30.0) H 06/06/17 08:00 MCHC Differential 34.3 pg (28.0-36.0) 06/06/17 08:00 RDW 15.0 % (11.5-20.0) 06/06/17 08:00 Plt Count 145 Th/cmm (150-400) L 06/06/17 08:00 MPV 9.7 fl 06/06/17 08:00 Neutrophils % 89.7 % (40.0-80.0) H 06/05/17 05:48 Lymphocytes % 6.6 % (20.0-50.0) L 06/05/17 05:48 Monocytes % 3.6 % (2.0-10.0) 06/05/17 05:48 Eosinophils % 0.1 % (0.0-5.0) 06/05/17 05:48 Basophils % 0.0 % (0.0-2.0) 06/05/17 05:48 Specimen Source Arterial 06/02/17 09:10 Sample Site Right Radial 06/02/17 09:10 pH 7.50 (7.35-7.45) H 06/02/17 09:10 pCO2 39.0 mmHg (35.0-45.0) 06/02/17 09:10 pO2 72.0 mmHg (80.0-100.0) L 06/02/17 09:10 HCO3 30.1 mEq/L (20.0-26.0) H 06/02/17 09:10 Base Excess 6.7 mEq/L (-3.0-3.0) H 06/02/17 09:10 O2 Saturation 96.0 % (92.0-100.0) 06/02/17 09:10 Endy Test PASS 06/02/17 09:10 Vent Rate 10 06/02/17 09:10 Inspired O2 30 06/02/17 09:10 Tidal Volume 500 06/02/17 09:10 PEEP 0 06/01/17 09:00 Pressure (ins/psv/peep) NA 06/01/17 09:00 Critical Value PW 06/02/17 09:10 Sodium 140 mEq/L (136-145) 06/06/17 08:00 Potassium 4.0 mEq/L (3.5-5.1) 06/06/17 08:00 Chloride 103 mEq/L (98-107) 06/06/17 08:00 Carbon Dioxide 30.0 mEq/L (21.0-31.0) 06/06/17 08:00 Anion Gap 11.0 (7.0-16.0) 06/06/17 08:00 BUN 22 mg/dL (7-25) 06/06/17 08:00 Creatinine 0.3 mg/dL (0.7-1.3) L 06/06/17 08:00 Est GFR ( Amer) > 60.0 ml/min (>90) 06/06/17 08:00 Est GFR (Non-Af Amer) > 60.0 ml/min 06/06/17 08:00 BUN/Creatinine Ratio 73.3 06/06/17 08:00 Glucose 165 mg/dL (70-105) H 06/06/17 08:00 POC Glucose 213 MG/DL (70 - 105) H 06/01/17 06:53 Hemoglobin A1c % 5.1 % (4.0-6.0) 06/01/17 05:30 Whole Bld Lactic Acid 3.45 mmol/L (0.60-1.99) H* 06/03/17 06:45 Calcium 7.7 mg/dL (8.6-10.3) L 06/06/17 08:00 Magnesium 1.9 mg/dL (1.9-2.7) 06/04/17 06:45 Total Bilirubin 0.3 mg/dL (0.3-1.0) 06/04/17 06:45 AST 29 U/L (13-39) 06/04/17 06:45 ALT 41 U/L (7-52) 06/04/17 06:45 Alkaline Phosphatase 57 U/L (34-104) 06/04/17 06:45 Ammonia 64 umol/L (16-53) H 06/04/17 06:45 B-Natriuretic Peptide 129.0 pg/mL (5.0-100.0) H 06/04/17 06:45 Total Protein 4.3 gm/dL (6.0-8.3) L 06/04/17 06:45 Albumin 2.1 gm/dL (4.2-5.5) L 06/04/17 06:45 Globulin 2.2 gm/dL 06/04/17 06:45 Albumin/Globulin Ratio 1.0 (1.0-1.8) 06/04/17 06:45 TSH 0.72 uIU/ml (0.34-5.60) 06/01/17 05:30 Urine Source CATH 05/31/17 12:35 Urine Color YELLOW 05/31/17 12:35 Urine Clarity CLOUDY (CLEAR) 05/31/17 12:35 Urine pH 8.5 (4.6 - 8.0) 05/31/17 12:35 Ur Specific [place] 1.010 (1.005-1.030) 05/31/17 12:35 Urine Protein 30 mg/dL (NEGATIVE) H 05/31/17 12:35 Urine Glucose (UA) NEGATIVE mg/dL (NEGATIVE) 05/31/17 12:35 Urine Ketones NEGATIVE mg/dL (NEGATIVE) 05/31/17 12:35 Urine Blood MODERATE (NEGATIVE) H 05/31/17 12:35 Urine Nitrate NEGATIVE (NEGATIVE) 05/31/17 12:35 Urine Bilirubin NEGATIVE (NEGATIVE) 05/31/17 12:35 Urine Urobilinogen 0.2 E.U./dL (0.2 - 1.0) 05/31/17 12:35 Ur Leukocyte Esterase NEGATIVE (NEGATIVE) 05/31/17 12:35 Urine RBC >100 /hpf (0-5) H 05/31/17 12:35 Urine WBC 2-5 /hpf (0-5) H 05/31/17 12:35 Ur Epithelial Cells NONE SEEN /lpf (FEW) 05/31/17 12:35 Urine Bacteria NONE SEEN /hpf (NONE SEEN) 05/31/17 12:35 Stool Occult Blood NEGATIVE (NEGATIVE) 06/05/17 06:00 Gentamicin Peak 11.9 ug/ml (4.0-8.0) H 06/04/17 02:00 Gentamicin Trough 5.9 ug/ml (0.2-2.0) H 06/03/17 23:25 Vancomycin Trough 10.7 ug/mL (10-20) 06/04/17 09:00 Influenza A (Rapid) NEG FOR INF A 06/05/17 08:00 Influenza B (Rapid) NEG FOR INF B 06/05/17 08:00 Blood Type O POSITIVE 06/02/17 11:40 Antibody Screen NEGATIVE 06/02/17 11:40 Crossmatch See Detail 06/02/17 11:40 - Physical Exam Vitals and I&O: Vital Signs Temp 97.2 F 06/06/17 20:00 Pulse 78 06/06/17 23:22 Resp 16 06/06/17 23:00 BP 94/56 06/06/17 23:00 Pulse Ox 99 06/06/17 23:22 Intake & Output 06/06/17 06/06/17 06/07/17 06:59 18:59 06:59 Intake Total 2144 1303 100 Output Total 1200 1650 Balance 944 -347 100 Weight (lbs) 48.081 kg 48.081 kg Intake: Intake, IV Amount 1100 1303 100 Dextrose 5% 1,000 ml @ 80 1000 1000 mls/hr IV .[id number] [facility] Rx#:[id number] Gentamicin 120 mg In 103 Sodium Chloride 0.9% 100 ml @ 100 mls/hr IV Q24H [facility] Rx#:[id number] Meropenem 1 gm In 100 200 100 Dextrose 5% 100 ml @ 100 mls/hr IV Q8HR [facility] Rx#: [id number] Tube Feeding 1044 Output: Urine 1200 1650 Other: # Bowel Movements 2 3 Stool Characteristics Soft Formed Active Medications: Current Medications Acetaminophen (Tylenol 650mg Supp) 650 mg RC Q4HR PRN PRN Reason: FEVER >100.1 Stop: 07/30/17 13:39 Acetaminophen (Tylenol) 325 mg PO Q6H PRN PRN Reason: PAIN/FEVER Stop: 07/30/17 16:47 Last Admin: 06/06/17 17:13 Dose: 325 mg Albuterol Sulfate (Albuterol 2.5mg/3ml Neb Ud) 1.25 mg HHN QIDRT [facility] Stop: 07/30/17 14:59 Last Admin: 06/06/17 16:27 Dose: 1.25 mg Ascorbic Acid (Vitamin C) 500 mg GT DAILY [facility] Stop: 07/31/17 08:59 Last Admin: 06/06/17 09:25 Dose: 500 mg Bisacodyl (Dulcolax 10 Mg Supp) 10 mg RC Q72HR PRN PRN Reason: Constipation Stop: 07/30/17 13:39 [place] Oil/[place] Balsam/Trypsin (Venelex) 1 appl TP BID [facility] Stop: 07/31/17 16:59 Last Admin: 06/06/17 17:14 Dose: 1 appl Chlorhexidine Gluconate (Peridex) 15 ml MM 0800,2000 [facility] Stop: 07/31/17 19:59 Last Admin: 06/06/17 19:42 Dose: 15 ml Cholecalciferol (Vitamin D3) 500 iu PO DAILY [facility] Stop: 07/31/17 08:59 Last Admin: 06/06/17 09:25 Dose: 500 iu Diltiazem HCl (Cardizem) 20 mg IVP Q4H PRN PRN Reason: HR Greater than 130 per min Stop: 07/30/17 13:40 Last Admin: 05/31/17 21:55 Dose: 20 mg Famotidine (Pepcid) 20 mg IVP Q12H [facility] Stop: 07/31/17 12:44 Last Admin: 06/06/17 12:55 Dose: 20 mg Guaifenesin (Robitussin) 200 mg PO Q4HR PRN PRN Reason: Cough or Congestion Stop: 07/30/17 13:41 Heparin Sodium (Porcine) (Heparin) 5,000 units SUBQ Q12H [facility] Stop: 07/31/17 20:59 Last Admin: 06/06/17 20:48 Dose: 5,000 units Dextrose (D5w) 1,000 mls @ 0 mls/hr IV .Q0M [facility] PRN Reason: Wide Open Stop: 07/31/17 16:46 Last Infusion: 06/01/17 19:08 Dose: Infused Norepinephrine Bitartrate 4 mg (/ Dextrose) 254 mls @ 30.48 mls/hr IV TITR PRN ; Protocol; 8 MCG/MIN PRN Reason: BP MAINTENANCE (PER PROTOCOL) Stop: 07/31/17 16:46 Last Titration: 06/03/17 00:00 Dose: 0 mcg/min, 0 mls/hr Dextrose (D5w) 1,000 mls @ 80 mls/hr IV .[id number] [facility] Stop: 08/01/17 17:38 Last Admin: 06/06/17 18:14 Dose: 80 mls/hr Meropenem 1 gm/ Dextrose 100 mls @ 100 mls/hr IV Q8HR [facility] Stop: 08/02/17 12:59 Last Infusion: 06/06/17 21:50 Dose: Infused Gentamicin Sulfate 120 mg/ (Sodium Chloride) 103 mls @ 100 mls/hr IV Q24H [facility] Stop: 08/04/17 08:59 Last Infusion: 06/06/17 11:09 Dose: Infused Ipratropium [place] (Atrovent Neb 0.5mg/2.5ml) 0.5 mg HHN QIDRT [facility] Stop: 08/03/17 18:59 Last Admin: 06/06/17 19:11 Dose: 0.5 mg Lactulose (Cephulac) 30 gm PO BID [facility] Stop: 08/03/17 16:59 Last Admin: 06/06/17 17:15 Dose: Not Given Lorazepam (Ativan) 1 mg IV Q4H PRN; Protocol PRN Reason: Seizure Stop: 07/30/17 13:40 Last Admin: 06/06/17 18:46 Dose: 1 mg Methylprednisolone Sodium Succinate (Solu-Medrol) 40 mg IVP Q8HR [facility] Stop: 07/30/17 20:59 Last Admin: 06/06/17 20:48 Dose: 40 mg Miscellaneous (Vte Chemical Prophylaxis Screen/ Admission) 1 ea MC PRN PRN PRN Reason: PROTOCOL Stop: 07/31/17 14:00 Miscellaneous (Probiotic Screen) 1 ea MC PRN PRN PRN Reason: PROTOCOL Stop: 07/31/17 16:02 Multivitamins/Vitamin C (Theragran) 1 tab GT DAILY [facility] Stop: 07/31/17 08:59 Last Admin: 06/06/17 09:25 Dose: 1 tab Ondansetron HCl (Zofran) 4 mg IV Q8H PRN PRN Reason: Nausea / Vomiting Stop: 07/30/17 13:41 Sodium Phosphate (Fleet Enema) 133 ml RC DAILY PRN PRN Reason: Constipation Stop: 07/30/17 13:39 General: no acute distress, well developed, well nourished HEENT: atraumatic, normocephalic, PERRLA Neck: supple, no thyromegaly, no lymphadenopathy Cardiovascular: S1S2, regular Lungs: clear to percussion, rhonchi Abdomen: soft, no tender, no distended, no mass, no rebound, no splenomegaly Extremities: no cyanosis, no clubbing, no edema Neurological: other (Unresponsive.) - Procedures Procedures: Procedures Procedure Code Date INSERT EMERGENCY AIRWAY 26796 05/31/17 INSERTION OF ENDOTRACHEAL AIRWAY INTO [place]HE[place], VIA OPENING [id number] 05/31/17 RESPIRATORY VENTILATION, LESS THAN 24 CONSECUTIVE HOURS [id number] 05/31/17 VENT MGMT INPAT INIT DAY 34699 05/31/17 Infectious Disease Assmt/Plan - Problem List Patient Problems: All Active Problems COUGH AND CONGESTION (Acute) - Assessment Assessment: 1. Sepsis. 2. G Tube site ESBL + E coli. 3. Pneumonia. 4. Acute respiratory failure and went dependence. 5. Altered mental status unresponsiveness, likely secondary to toxic metabolic encephalopathy. 6. Cerebral palsy. - Plan Plan: Continue meropenem. Nutritional Asmnt/Malnutr-PDOC - Dietary Evaluation Malnutrition Findings (Please click <Entered> for more info): Nutritional Asmnt/Malnutrition Start: 06/01/17 17: 31 Text: Status: Complete Freq: Document 06/01/17 17:31 LCHENG (Rec: 06/01/17 17:45 LCHENG [id number]) Nutritional Asmnt/Malnutrition Patient General Information Nutritional Screening High Risk Consult Diagnosis renal failure, prespiratory failure r/o PNA Pertinent Medical Hx/Surgical Hx dementia, MR anemia, spastic quadriplegia, cerebral palsy, seizure, aspiration PNA, s/p respiratory failure, spsis, hyponatremia, gastroenteritis, PEG Subjective Information Consult received for Anibal 13 and pressure ulcer. Pt seen resting in bed at the time of visit, intubated, non-verbal noted. TF not running at this time. Current Diet Order/ Nutrition Support Isosource 1.5 87ml/hr x 17hr Pertinent Medications vitamin C, vitamin D3, D5w, teragran, piperacillin, miralax, cancomycin Pertinent Labs 06/01 na 160, Cl 120, K 4.1, BUN 29, Cr 0.3, Glucose 242, A1c 5.1, Ca 8.4, Mg 2.8 Nutritional Hx/Data Height 1.68 m Height (Calculated Centimeters) 167.6 Current Weight (lbs) 47.854 kg Weight (Calculated Kilograms) 47.9 Weight (Calculated Grams) 32231.0 Shepherd Body Weight 142 % Shepherd Body Weight 94 Body Mass Index (BMI) 17.0 Weight Status Underweight GI Symptoms GI Symptoms None Last BM none Difficult in: None Usual diet at home Jevity 1.5 87ml/hr x 17hr Skin Integrity/Comment: decubitus ulceration to sacrum Estimated Nutritional Goals Calories/Kcals/Kg 25-30 Kcals Calculated [id number] based on IBW 65kg Protein g/k.2-1.4 Protein Calculated 78-91 consider respiratory failure and skin probelm Nutritional Problem 1. Problem Problem excessive intake from enteral feeding Etiology current TF regimen providing excessive calorie and protein than estimated nutritional needs Signs/Symptoms: current TF providing 114% of calorie needs and 110% of protein needs Malnutrition Alert Protein-Calorie Malnutrition N/A Is there a minimum of two criteria No selected? Query Text:Check all the applicable criteria. A minimum of two criteria are recommended for diagnosis of either severe or non-severe malnutrition. Intervention/Recommendation Comments 1. Recommend modify TF rate to 70ml/hr x 17hr to meet 100% of nutritional needs and avoid overfeeding. 2. Monitor TF rate, tolerance, wt weekly, skin integrity and labs 3. F/U as moderate risk in 3-5 days, 04/25-04/27 Expected Outcomes/Goals Expected Outcomes/Goals 1. Pt to meet 75-100% of nutritional needs via nutrition support with tolerance 2. 2. Wt stability, skin to remain intact, labs to approach WNL.
[2017-06-07] MEDS: methylPREDNISolone SS 40 mg Vial IVP SCH ×3 (05:14→21:38)
[2017-06-07 07:04] LABS: HEMATOCRIT 27.1 % (41.0-60); HEMOGLOBIN 9.2 gm/dL (12-16); LYMPHOCYTE ABSOLUTE 0.7 Th/cmm (1.5-3.0); MEAN CELL VOLUME 89.5 fl (80-99); MEAN CORPUSCULAR HEMOGLOBIN 30.4 pg (26.0-30.0); MEAN CORPUSCULAR HGB CONC 33.9 pg (28.0-36.0); MEAN PLATELET VOLUME 9.2 fl; MONOCYTE ABSOLUTE 0.1 Th/cmm (0.3-1.0); NEUTROPHILE ABSOLUTE 10.7 Th/cmm (1.8-8.0); RED BLOOD COUNT 3.03 Mil/cmm (4.30-5.70); RED CELL DISTRIBUTION WIDTH 15.3 % (11.5-20.0); WHITE BLOOD COUNT 11.5 Th/cmm (4.8-10.8)
[2017-06-07 07:18] LABS: PLATELET COUNT 209 Th/cmm (150-400)
[2017-06-07 07:30] LABS: ANION GAP 7.2 (7.0-16.0); BUN - UREA NITROGEN 21 mg/dL (7-25); CALCIUM SERUM 7.7 mg/dL (8.6-10.3); CARBON DIOXIDE 31.6 mEq/L (21.0-31.0); CHLORIDE 104 mEq/L (98-107); CREATININE - SERUM 0.2 mg/dL (0.7-1.3); GFR AFRICAN-AMERICAN > 60.0 ml/min (>90); GFR NON AFRICAN-AMERICAN > 60.0 ml/min; GLUCOSE 134 mg/dL (70-105); MAGNESIUM 2.1 mg/dL (1.9-2.7); POTASSIUM SERUM 3.8 mEq/L (3.5-5.1); SODIUM SERUM 139 mEq/L (136-145)
[2017-06-07] MEDS: Albuterol Nebulizer 2.5mg/3mL HHN SCH ×5 (07:36→23:07)
[2017-06-07] MEDS: Ipratropium Neb 0.5 mg/2.5 mL UD HHN SCH ×5 (07:36→23:07)
[2017-06-07] MEDS: Multivitamin Tab GT SCH (08:58)
[2017-06-07] MEDS: Lactulose 10 Gm/15 mL 30mL UDC PO SCH ×3 (08:58→17:01)
[2017-06-07] MEDS: Chlorhexidine Gluconate 0.12% 15mL Mouthwash MM SCH ×2 (09:01→21:00)
[2017-06-07] MEDS: Venelex 60gm Tube TP SCH ×2 (09:11→17:00)
[2017-06-07 09:48] LABS: BAND NEUTROPHILE 5 % (0-10); LYMPHOCYTE 10 % (20-50); MONOCYTE 4 % (2-10); NEUTROPHILS 81 % (40-80); PLATELET ESTIMATE ADEQUATE (NORMAL); TOTAL CELLS COUNTED 100
[2017-06-07 10:06] LABS: ALLEN TEST PASS
[2017-06-07] MEDS: Dextrose 5% 1,000 ML IV SCH (12:59)
[2017-06-07 13:13] LABS: ALLEN TEST YES; pH 7.52 (7.35-7.45)
--- NOTE | 2017-06-07 13:25 | Internal Medicine Prog Note ---
Internal Medicine Subjective - Subjective Service Date: 06/07/17 (tolerating tbar) Patient is:: awake, non-verbal, non-interactive, in bed, other Patient Complaints of:: congestion Per staff patient has:: tolerating meds Internal Medicine Objective - Results Result Diagrams: 06/07/17 06:30 06/07/17 06:30 Recent Labs: Laboratory Last Values WBC 11.5 Th/cmm (4.8-10.8) H 06/07/17 06:30 RBC 3.03 Mil/cmm (4.30-5.70) L 06/07/17 06:30 Hgb 9.2 gm/dL (12-16) L 06/07/17 06:30 Hct 27.1 % (41.0-60) L 06/07/17 06:30 MCV 89.5 fl (80-99) 06/07/17 06:30 MCH 30.4 pg (26.0-30.0) H 06/07/17 06:30 MCHC Differential 33.9 pg (28.0-36.0) 06/07/17 06:30 RDW 15.3 % (11.5-20.0) 06/07/17 06:30 Plt Count 209 Th/cmm (150-400) D 06/07/17 06:30 MPV 9.2 fl 06/07/17 06:30 Neutrophils % 89.7 % (40.0-80.0) H 06/05/17 05:48 Band Neutrophils % 5 % (0-10) 06/07/17 06:30 Lymphocytes % 6.6 % (20.0-50.0) L 06/05/17 05:48 Monocytes % 3.6 % (2.0-10.0) 06/05/17 05:48 Eosinophils % 0.1 % (0.0-5.0) 06/05/17 05:48 Basophils % 0.0 % (0.0-2.0) 06/05/17 05:48 Neutrophils (Manual) 81 % (40-80) H 06/07/17 06:30 Lymphocytes 10 % (20-50) L 06/07/17 06:30 Monocytes 4 % (2-10) 06/07/17 06:30 Platelet Estimate ADEQUATE (NORMAL) 06/07/17 06:30 Specimen Source Arterial 06/07/17 13:05 Sample Site Right Radial 06/07/17 13:05 pH 7.52 (7.35-7.45) H 06/07/17 13:05 pCO2 45.0 mmHg (35.0-45.0) 06/07/17 13:05 pO2 95.0 mmHg (80.0-100.0) 06/07/17 13:05 HCO3 34.6 mEq/L (20.0-26.0) H 06/07/17 13:05 Base Excess 12.4 mEq/L (-3.0-3.0) H 06/07/17 13:05 O2 Saturation 98.0 % (92.0-100.0) 06/07/17 13:05 Enyd Test YES 06/07/17 13:05 Vent Rate NA 06/07/17 13:05 Inspired O2 40 06/07/17 13:05 Tidal Volume NA 06/07/17 13:05 PEEP NA 06/07/17 13:05 Pressure (ins/psv/peep) NA 06/07/17 13:05 Critical Value E.BABCOCK 06/07/17 13:05 Sodium 139 mEq/L (136-145) 06/07/17 06:30 Potassium 3.8 mEq/L (3.5-5.1) 06/07/17 06:30 Chloride 104 mEq/L (98-107) 06/07/17 06:30 Carbon Dioxide 31.6 mEq/L (21.0-31.0) H 06/07/17 06:30 Anion Gap 7.2 (7.0-16.0) 06/07/17 06:30 BUN 21 mg/dL (7-25) 06/07/17 06:30 Creatinine 0.2 mg/dL (0.7-1.3) L 06/07/17 06:30 Est GFR ( Amer) > 60.0 ml/min (>90) 06/07/17 06:30 Est GFR (Non-Af Amer) > 60.0 ml/min 06/07/17 06:30 BUN/Creatinine Ratio 105.0 06/07/17 06:30 Glucose 134 mg/dL (70-105) H 06/07/17 06:30 POC Glucose 213 MG/DL (70 - 105) H 06/01/17 06:53 Hemoglobin A1c % 5.1 % (4.0-6.0) 06/01/17 05:30 Whole Bld Lactic Acid 3.45 mmol/L (0.60-1.99) H* 06/03/17 06:45 Calcium 7.7 mg/dL (8.6-10.3) L 06/07/17 06:30 Magnesium 2.1 mg/dL (1.9-2.7) 06/07/17 06:30 Total Bilirubin 0.3 mg/dL (0.3-1.0) 06/04/17 06:45 AST 29 U/L (13-39) 06/04/17 06:45 ALT 41 U/L (7-52) 06/04/17 06:45 Alkaline Phosphatase 57 U/L (34-104) 06/04/17 06:45 Ammonia 64 umol/L (16-53) H 06/04/17 06:45 B-Natriuretic Peptide 129.0 pg/mL (5.0-100.0) H 06/04/17 06:45 Total Protein 4.3 gm/dL (6.0-8.3) L 06/04/17 06:45 Albumin 2.1 gm/dL (4.2-5.5) L 06/04/17 06:45 Globulin 2.2 gm/dL 06/04/17 06:45 Albumin/Globulin Ratio 1.0 (1.0-1.8) 06/04/17 06:45 TSH 0.72 uIU/ml (0.34-5.60) 06/01/17 05:30 Urine Source CATH 05/31/17 12:35 Urine Color YELLOW 05/31/17 12:35 Urine Clarity CLOUDY (CLEAR) 05/31/17 12:35 Urine pH 8.5 (4.6 - 8.0) 05/31/17 12:35 Ur Specific [place] 1.010 (1.005-1.030) 05/31/17 12:35 Urine Protein 30 mg/dL (NEGATIVE) H 05/31/17 12:35 Urine Glucose (UA) NEGATIVE mg/dL (NEGATIVE) 05/31/17 12:35 Urine Ketones NEGATIVE mg/dL (NEGATIVE) 05/31/17 12:35 Urine Blood MODERATE (NEGATIVE) H 05/31/17 12:35 Urine Nitrate NEGATIVE (NEGATIVE) 05/31/17 12:35 Urine Bilirubin NEGATIVE (NEGATIVE) 05/31/17 12:35 Urine Urobilinogen 0.2 E.U./dL (0.2 - 1.0) 05/31/17 12:35 Ur Leukocyte Esterase NEGATIVE (NEGATIVE) 05/31/17 12:35 Urine RBC >100 /hpf (0-5) H 05/31/17 12:35 Urine WBC 2-5 /hpf (0-5) H 05/31/17 12:35 Ur Epithelial Cells NONE SEEN /lpf (FEW) 05/31/17 12:35 Urine Bacteria NONE SEEN /hpf (NONE SEEN) 05/31/17 12:35 Stool Occult Blood NEGATIVE (NEGATIVE) 06/05/17 06:00 Gentamicin Peak 5.1 ug/ml (4.0-8.0) L 06/06/17 12:30 Gentamicin Trough 0.6 ug/ml (0.2-2.0) 06/06/17 08:00 Vancomycin Trough 10.7 ug/mL (10-20) 06/04/17 09:00 Influenza A (Rapid) NEG FOR INF A 06/05/17 08:00 Influenza B (Rapid) NEG FOR INF B 06/05/17 08:00 Blood Type O POSITIVE 06/02/17 11:40 Antibody Screen NEGATIVE 06/02/17 11:40 Crossmatch See Detail 06/02/17 11:40 - Physical Exam Vitals and I&O: Vital Signs Temp 96.7 F 06/07/17 08:00 Pulse 85 06/07/17 10:00 Resp 14 06/07/17 10:00 BP 99/50 06/07/17 10:00 Pulse Ox 100 06/07/17 10:00 Intake & Output 06/06/17 06/07/17 06/07/17 18:59 06:59 18:59 Intake Total 1303 2307.000 Output Total 1650 2101 Balance -347 206.000 Weight (lbs) 106 lb 106 lb Intake: Intake, IV Amount 1303 1200.000 Dextrose 5% 1,000 ml @ 80 1000 1000.000 mls/hr IV .[id number] [facility] Rx#:[id number] Gentamicin 120 mg In 103 Sodium Chloride 0.9% 100 ml @ 100 mls/hr IV Q24H [facility] Rx#:[id number] Meropenem 1 gm In 200 200 Dextrose 5% 100 ml @ 100 mls/hr IV Q8HR [facility] Rx#: [id number] Oral 0 Tube Feeding 957 Other 150 Output: Urine 1650 2100 Stool 1 Other: # Bowel Movements 3 Stool Characteristics Soft Soft Brown Brown Active Medications: Current Medications Acetaminophen (Tylenol 650mg Supp) 650 mg RC Q4HR PRN PRN Reason: FEVER >100.1 Stop: 07/30/17 13:39 Acetaminophen (Tylenol) 325 mg PO Q6H PRN PRN Reason: PAIN/FEVER Stop: 07/30/17 16:47 Last Admin: 06/06/17 17:13 Dose: 325 mg Albuterol Sulfate (Albuterol 2.5mg/3ml Neb Ud) 1.25 mg HHN QIDRT [facility] Stop: 07/30/17 14:59 Last Admin: 06/07/17 07:36 Dose: 1.25 mg Ascorbic Acid (Vitamin C) 500 mg GT DAILY [facility] Stop: 07/31/17 08:59 Last Admin: 06/07/17 08:58 Dose: 500 mg Bisacodyl (Dulcolax 10 Mg Supp) 10 mg RC Q72HR PRN PRN Reason: Constipation Stop: 07/30/17 13:39 [place] Oil/[place] Balsam/Trypsin (Venelex) 1 appl TP BID [facility] Stop: 07/31/17 16:59 Last Admin: 06/07/17 09:11 Dose: 1 appl Chlorhexidine Gluconate (Peridex) 15 ml MM 0800,2000 [facility] Stop: 07/31/17 19:59 Last Admin: 06/07/17 09:01 Dose: 15 ml Cholecalciferol (Vitamin D3) 500 iu PO DAILY [facility] Stop: 07/31/17 08:59 Last Admin: 06/07/17 08:58 Dose: 500 iu Diltiazem HCl (Cardizem) 20 mg IVP Q4H PRN PRN Reason: HR Greater than 130 per min Stop: 07/30/17 13:40 Last Admin: 05/31/17 21:55 Dose: 20 mg Famotidine (Pepcid) 20 mg IVP Q12H [facility] Stop: 07/31/17 12:44 Last Admin: 06/07/17 12:50 Dose: 20 mg Guaifenesin (Robitussin) 200 mg PO Q4HR PRN PRN Reason: Cough or Congestion Stop: 07/30/17 13:41 Heparin Sodium (Porcine) (Heparin) 5,000 units SUBQ Q12H [facility] Stop: 07/31/17 20:59 Last Admin: 06/07/17 08:58 Dose: 5,000 units Dextrose (D5w) 1,000 mls @ 0 mls/hr IV .Q0M [facility] PRN Reason: Wide Open Stop: 07/31/17 16:46 Last Infusion: 06/01/17 19:08 Dose: Infused Norepinephrine Bitartrate 4 mg (/ Dextrose) 254 mls @ 30.48 mls/hr IV TITR PRN ; Protocol; 8 MCG/MIN PRN Reason: BP MAINTENANCE (PER PROTOCOL) Stop: 07/31/17 16:46 Last Titration: 06/03/17 00:00 Dose: 0 mcg/min, 0 mls/hr Dextrose (D5w) 1,000 mls @ 80 mls/hr IV .[id number] [facility] Stop: 08/01/17 17:38 Last Admin: 06/07/17 12:59 Dose: 80 mls/hr Meropenem 1 gm/ Dextrose 100 mls @ 100 mls/hr IV Q8HR [facility] Stop: 08/02/17 12:59 Last Admin: 06/07/17 12:50 Dose: 100 mls/hr Gentamicin Sulfate 120 mg/ (Sodium Chloride) 103 mls @ 100 mls/hr IV Q24H [facility] Stop: 08/04/17 08:59 Last Admin: 06/07/17 08:59 Dose: 100 mls/hr Ipratropium [place] (Atrovent Neb 0.5mg/2.5ml) 0.5 mg HHN QIDRT [facility] Stop: 08/03/17 18:59 Last Admin: 06/07/17 07:36 Dose: 0.5 mg Lactulose (Cephulac) 30 gm PO BID [facility] Stop: 08/03/17 16:59 Last Admin: 06/07/17 09:11 Dose: Not Given Lorazepam (Ativan) 1 mg IV Q4H PRN; Protocol PRN Reason: Seizure Stop: 07/30/17 13:40 Last Admin: 06/07/17 03:29 Dose: 1 mg Methylprednisolone Sodium Succinate (Solu-Medrol) 40 mg IVP Q8HR [facility] Stop: 07/30/17 20:59 Last Admin: 06/07/17 12:50 Dose: 40 mg Miscellaneous (Vte Chemical Prophylaxis Screen/ Admission) 1 ea PRN PRN PRN Reason: PROTOCOL Stop: 07/31/17 14:00 Miscellaneous (Probiotic Screen) 1 ea PRN PRN PRN Reason: PROTOCOL Stop: 07/31/17 16:02 Multivitamins/Vitamin C (Theragran) 1 tab GT DAILY FERNANDO Stop: 07/31/17 08:59 Last Admin: 06/07/17 08:58 Dose: 1 tab Ondansetron HCl (Zofran) 4 mg IV Q8H PRN PRN Reason: Nausea / Vomiting Stop: 07/30/17 13:41 Sodium Phosphate (Fleet Enema) 133 ml RC DAILY PRN PRN Reason: Constipation Stop: 07/30/17 13:39 General: weak HEENT: NC/AT, PERRLA Neck: No LAD Lungs: ronchi Cardiovascular: RRR, Normal S1, Normal S2, without murmur Abdomen: soft, non-tender, non-distended, +GT, positive bowel sound Extremities: excoriation, ecchymosis, contracture, deformity, atrophy Neurological: unable to follow command - Procedures Procedures: Procedures Procedure Code Date INSERT EMERGENCY AIRWAY 12245 05/31/17 INSERTION OF ENDOTRACHEAL AIRWAY INTO [place], VIA OPENING [id number] 05/31/17 RESPIRATORY VENTILATION, LESS THAN 24 CONSECUTIVE HOURS [id number] 05/31/17 VENT MGMT INPAT INIT DAY [id number] 05/31/17 Internal Medicine Assmt/Plan - Assessment Assessment: S/p cardiopulmonary arrest, now intubated on vent lactic acidosis Acute Respiratory Failure Sepsis PNA leukocytosis hypokalemia acute renal insufficiency spastic quadriplegia seizures - Plan Plan: weaning as tolerated vent support inhalation treatments empiric ivantibiotics pulmo follow up continue current plan of care Nutritional Asmnt/Malnutr-PDOC - Dietary Evaluation Malnutrition Findings (Please click <Entered> for more info): Nutritional Asmnt/Malnutrition Start: 06/01/17 17: 31 Text: Status: Complete Freq: Document 06/01/17 17:31 LCJOSELING (Rec: 06/01/17 17:45 LCHENG [email or web address]) Nutritional Asmnt/Malnutrition Patient General Information Nutritional Screening High Risk Consult Diagnosis renal failure, prespiratory failure r/o PNA Pertinent Medical Hx/Surgical Hx dementia, MR anemia, spastic quadriplegia, cerebral palsy, seizure, aspiration PNA, s/p respiratory failure, spsis, hyponatremia, gastroenteritis, PEG Subjective Information Consult received for Anibal 13 and pressure ulcer. Pt seen resting in bed at the time of visit, intubated, non-verbal noted. TF not running at this time. Current Diet Order/ Nutrition Support Isosource 1.5 87ml/hr x 17hr Pertinent Medications vitamin C, vitamin D3, D5w, teragran, piperacillin, miralax, cancomycin Pertinent Labs 06/01 na 160, Cl 120, K 4.1, BUN 29, Cr 0.3, Glucose 242, A1c 5.1, Ca 8.4, Mg 2.8 Nutritional Hx/Data Height 5 ft 6 in Height (Calculated Centimeters) 167.6 Current Weight (lbs) 105 lb 8 oz Weight (Calculated Kilograms) 47.9 Weight (Calculated Grams) 30501.0 [place] Body Weight 142 % [place] Body Weight 94 Body Mass Index (BMI) 17.0 Weight Status Underweight GI Symptoms GI Symptoms None Last BM none Difficult in: None Usual diet at home Jevity 1.5 87ml/hr x 17hr Skin Integrity/Comment: decubitus ulceration to sacrum Estimated Nutritional Goals Calories/Kcals/Kg 25-30 Kcals Calculated [id number] based on IBW 65kg Protein g/k.2-1.4 Protein Calculated 78-91 consider respiratory failure and skin probelm Nutritional Problem 1. Problem Problem excessive intake from enteral feeding Etiology current TF regimen providing excessive calorie and protein than estimated nutritional needs Signs/Symptoms: current TF providing 114% of calorie needs and 110% of protein needs Malnutrition Alert Protein-Calorie Malnutrition N/A Is there a minimum of two criteria No selected? Query Text:Check all the applicable criteria. A minimum of two criteria are recommended for diagnosis of either severe or non-severe malnutrition. Intervention/Recommendation Comments 1. Recommend modify TF rate to 70ml/hr x 17hr to meet 100% of nutritional needs and avoid overfeeding. 2. Monitor TF rate, tolerance, wt weekly, skin integrity and labs 3. F/U as moderate risk in 3-5 days, 04/25-04/27 Expected Outcomes/Goals Expected Outcomes/Goals 1. Pt to meet 75-100% of nutritional needs via nutrition support with tolerance 2. 2. Wt stability, skin to remain intact, labs to approach WNL.
--- NOTE | 2017-06-07 15:11 | Infectious Disease Prog Note ---
Infectious Disease Subjective - Review of Systems Service Date: 06/07/17 Subjective: extubated. No fever. Infectious Disease Objective - Results Result Diagrams: 06/07/17 06:30 06/07/17 06:30 Recent Labs: Laboratory Last Values WBC 11.5 Th/cmm (4.8-10.8) H 06/07/17 06:30 RBC 3.03 Mil/cmm (4.30-5.70) L 06/07/17 06:30 Hgb 9.2 gm/dL (12-16) L 06/07/17 06:30 Hct 27.1 % (41.0-60) L 06/07/17 06:30 MCV 89.5 fl (80-99) 06/07/17 06:30 MCH 30.4 pg (26.0-30.0) H 06/07/17 06:30 MCHC Differential 33.9 pg (28.0-36.0) 06/07/17 06:30 RDW 15.3 % (11.5-20.0) 06/07/17 06:30 Plt Count 209 Th/cmm (150-400) D 06/07/17 06:30 MPV 9.2 fl 06/07/17 06:30 Neutrophils % 89.7 % (40.0-80.0) H 06/05/17 05:48 Band Neutrophils % 5 % (0-10) 06/07/17 06:30 Lymphocytes % 6.6 % (20.0-50.0) L 06/05/17 05:48 Monocytes % 3.6 % (2.0-10.0) 06/05/17 05:48 Eosinophils % 0.1 % (0.0-5.0) 06/05/17 05:48 Basophils % 0.0 % (0.0-2.0) 06/05/17 05:48 Neutrophils (Manual) 81 % (40-80) H 06/07/17 06:30 Lymphocytes 10 % (20-50) L 06/07/17 06:30 Monocytes 4 % (2-10) 06/07/17 06:30 Platelet Estimate ADEQUATE (NORMAL) 06/07/17 06:30 Specimen Source Arterial 06/07/17 13:05 Sample Site Right Radial 06/07/17 13:05 pH 7.52 (7.35-7.45) H 06/07/17 13:05 pCO2 45.0 mmHg (35.0-45.0) 06/07/17 13:05 pO2 95.0 mmHg (80.0-100.0) 06/07/17 13:05 HCO3 34.6 mEq/L (20.0-26.0) H 06/07/17 13:05 Base Excess 12.4 mEq/L (-3.0-3.0) H 06/07/17 13:05 O2 Saturation 98.0 % (92.0-100.0) 06/07/17 13:05 Endy Test YES 06/07/17 13:05 Vent Rate NA 06/07/17 13:05 Inspired O2 40 06/07/17 13:05 Tidal Volume NA 06/07/17 13:05 PEEP NA 06/07/17 13:05 Pressure (ins/psv/peep) NA 06/07/17 13:05 Critical Value E.BABCOCK 06/07/17 13:05 Sodium 139 mEq/L (136-145) 06/07/17 06:30 Potassium 3.8 mEq/L (3.5-5.1) 06/07/17 06:30 Chloride 104 mEq/L (98-107) 06/07/17 06:30 Carbon Dioxide 31.6 mEq/L (21.0-31.0) H 06/07/17 06:30 Anion Gap 7.2 (7.0-16.0) 06/07/17 06:30 BUN 21 mg/dL (7-25) 06/07/17 06:30 Creatinine 0.2 mg/dL (0.7-1.3) L 06/07/17 06:30 Est GFR ( Amer) > 60.0 ml/min (>90) 06/07/17 06:30 Est GFR (Non-Af Amer) > 60.0 ml/min 06/07/17 06:30 BUN/Creatinine Ratio 105.0 06/07/17 06:30 Glucose 134 mg/dL (70-105) H 06/07/17 06:30 POC Glucose 213 MG/DL (70 - 105) H 06/01/17 06:53 Hemoglobin A1c % 5.1 % (4.0-6.0) 06/01/17 05:30 Whole Bld Lactic Acid 3.45 mmol/L (0.60-1.99) H* 06/03/17 06:45 Calcium 7.7 mg/dL (8.6-10.3) L 06/07/17 06:30 Magnesium 2.1 mg/dL (1.9-2.7) 06/07/17 06:30 Total Bilirubin 0.3 mg/dL (0.3-1.0) 06/04/17 06:45 AST 29 U/L (13-39) 06/04/17 06:45 ALT 41 U/L (7-52) 06/04/17 06:45 Alkaline Phosphatase 57 U/L (34-104) 06/04/17 06:45 Ammonia 64 umol/L (16-53) H 06/04/17 06:45 B-Natriuretic Peptide 129.0 pg/mL (5.0-100.0) H 06/04/17 06:45 Total Protein 4.3 gm/dL (6.0-8.3) L 06/04/17 06:45 Albumin 2.1 gm/dL (4.2-5.5) L 06/04/17 06:45 Globulin 2.2 gm/dL 06/04/17 06:45 Albumin/Globulin Ratio 1.0 (1.0-1.8) 06/04/17 06:45 TSH 0.72 uIU/ml (0.34-5.60) 06/01/17 05:30 Urine Source CATH 05/31/17 12:35 Urine Color YELLOW 05/31/17 12:35 Urine Clarity CLOUDY (CLEAR) 05/31/17 12:35 Urine pH 8.5 (4.6 - 8.0) 05/31/17 12:35 Ur Specific [place] 1.010 (1.005-1.030) 05/31/17 12:35 Urine Protein 30 mg/dL (NEGATIVE) H 05/31/17 12:35 Urine Glucose (UA) NEGATIVE mg/dL (NEGATIVE) 05/31/17 12:35 Urine Ketones NEGATIVE mg/dL (NEGATIVE) 05/31/17 12:35 Urine Blood MODERATE (NEGATIVE) H 05/31/17 12:35 Urine Nitrate NEGATIVE (NEGATIVE) 05/31/17 12:35 Urine Bilirubin NEGATIVE (NEGATIVE) 05/31/17 12:35 Urine Urobilinogen 0.2 E.U./dL (0.2 - 1.0) 05/31/17 12:35 Ur Leukocyte Esterase NEGATIVE (NEGATIVE) 05/31/17 12:35 Urine RBC >100 /hpf (0-5) H 05/31/17 12:35 Urine WBC 2-5 /hpf (0-5) H 05/31/17 12:35 Ur Epithelial Cells NONE SEEN /lpf (FEW) 05/31/17 12:35 Urine Bacteria NONE SEEN /hpf (NONE SEEN) 05/31/17 12:35 Stool Occult Blood NEGATIVE (NEGATIVE) 06/05/17 06:00 Gentamicin Peak 5.1 ug/ml (4.0-8.0) L 06/06/17 12:30 Gentamicin Trough 0.6 ug/ml (0.2-2.0) 06/06/17 08:00 Vancomycin Trough 10.7 ug/mL (10-20) 06/04/17 09:00 Influenza A (Rapid) NEG FOR INF A 06/05/17 08:00 Influenza B (Rapid) NEG FOR INF B 06/05/17 08:00 Blood Type O POSITIVE 06/02/17 11:40 Antibody Screen NEGATIVE 06/02/17 11:40 Crossmatch See Detail 06/02/17 11:40 - Physical Exam Vitals and I&O: Vital Signs Temp 96.7 F 06/07/17 08:00 Pulse 85 06/07/17 10:00 Resp 14 06/07/17 10:00 BP 99/50 06/07/17 10:00 Pulse Ox 100 06/07/17 10:00 Intake & Output 06/06/17 06/07/17 06/07/17 18:59 06:59 18:59 Intake Total 1303 2307.000 100 Output Total 1650 2101 Balance -347 206.000 100 Weight (lbs) 48.081 kg 48.081 kg Intake: Intake, IV Amount 1303 1200.000 100 Dextrose 5% 1,000 ml @ 80 1000 1000.000 mls/hr IV .[id number] [facility] Rx#:[id number] Gentamicin 120 mg In 103 Sodium Chloride 0.9% 100 ml @ 100 mls/hr IV Q24H [facility] Rx#:[id number] Meropenem 1 gm In 200 200 100 Dextrose 5% 100 ml @ 100 mls/hr IV Q8HR [facility] Rx#: [id number] Oral 0 Tube Feeding 957 Other 150 Output: Urine 1650 2100 Stool 1 Other: # Bowel Movements 3 Stool Characteristics Soft Soft Brown Brown Active Medications: Current Medications Acetaminophen (Tylenol 650mg Supp) 650 mg RC Q4HR PRN PRN Reason: FEVER >100.1 Stop: 07/30/17 13:39 Acetaminophen (Tylenol) 325 mg PO Q6H PRN PRN Reason: PAIN/FEVER Stop: 07/30/17 16:47 Last Admin: 06/06/17 17:13 Dose: 325 mg Albuterol Sulfate (Albuterol 2.5mg/3ml Neb Ud) 1.25 mg HHN QIDRT [facility] Stop: 07/30/17 14:59 Last Admin: 06/07/17 07:36 Dose: 1.25 mg Ascorbic Acid (Vitamin C) 500 mg GT DAILY [facility] Stop: 07/31/17 08:59 Last Admin: 06/07/17 08:58 Dose: 500 mg Bisacodyl (Dulcolax 10 Mg Supp) 10 mg RC Q72HR PRN PRN Reason: Constipation Stop: 07/30/17 13:39 [place] Oil/Honduran Balsam/Trypsin (Venelex) 1 appl TP BID [facility] Stop: 07/31/17 16:59 Last Admin: 06/07/17 09:11 Dose: 1 appl Chlorhexidine Gluconate (Peridex) 15 ml MM 0800,2000 [facility] Stop: 07/31/17 19:59 Last Admin: 06/07/17 09:01 Dose: 15 ml Cholecalciferol (Vitamin D3) 500 iu PO DAILY [facility] Stop: 07/31/17 08:59 Last Admin: 06/07/17 08:58 Dose: 500 iu Diltiazem HCl (Cardizem) 20 mg IVP Q4H PRN PRN Reason: HR Greater than 130 per min Stop: 07/30/17 13:40 Last Admin: 05/31/17 21:55 Dose: 20 mg Famotidine (Pepcid) 20 mg IVP Q12H [facility] Stop: 07/31/17 12:44 Last Admin: 06/07/17 12:50 Dose: 20 mg Guaifenesin (Robitussin) 200 mg PO Q4HR PRN PRN Reason: Cough or Congestion Stop: 07/30/17 13:41 Heparin Sodium (Porcine) (Heparin) 5,000 units SUBQ Q12H [facility] Stop: 07/31/17 20:59 Last Admin: 06/07/17 08:58 Dose: 5,000 units Dextrose (D5w) 1,000 mls @ 0 mls/hr IV .Q0M [facility] PRN Reason: Wide Open Stop: 07/31/17 16:46 Last Infusion: 06/01/17 19:08 Dose: Infused Norepinephrine Bitartrate 4 mg (/ Dextrose) 254 mls @ 30.48 mls/hr IV TITR PRN ; Protocol; 8 MCG/MIN PRN Reason: BP MAINTENANCE (PER PROTOCOL) Stop: 07/31/17 16:46 Last Titration: 06/03/17 00:00 Dose: 0 mcg/min, 0 mls/hr Dextrose (D5w) 1,000 mls @ 80 mls/hr IV .[id number] [facility] Stop: 08/01/17 17:38 Last Admin: 06/07/17 12:59 Dose: 80 mls/hr Meropenem 1 gm/ Dextrose 100 mls @ 100 mls/hr IV Q8HR [facility] Stop: 08/02/17 12:59 Last Infusion: 06/07/17 13:50 Dose: Infused Gentamicin Sulfate 120 mg/ (Sodium Chloride) 103 mls @ 100 mls/hr IV Q24H [facility] Stop: 08/04/17 08:59 Last Admin: 06/07/17 08:59 Dose: 100 mls/hr Ipratropium [place] (Atrovent Neb 0.5mg/2.5ml) 0.5 mg HHN QIDRT [facility] Stop: 08/03/17 18:59 Last Admin: 06/07/17 07:36 Dose: 0.5 mg Lactulose (Cephulac) 30 gm PO BID [facility] Stop: 08/03/17 16:59 Last Admin: 06/07/17 09:11 Dose: Not Given Lorazepam (Ativan) 1 mg IV Q4H PRN; Protocol PRN Reason: Seizure Stop: 07/30/17 13:40 Last Admin: 06/07/17 03:29 Dose: 1 mg Methylprednisolone Sodium Succinate (Solu-Medrol) 40 mg IVP Q8HR [facility] Stop: 07/30/17 20:59 Last Admin: 06/07/17 12:50 Dose: 40 mg Miscellaneous (Vte Chemical Prophylaxis Screen/ Admission) 1 ea MC PRN PRN PRN Reason: PROTOCOL Stop: 07/31/17 14:00 Miscellaneous (Probiotic Screen) 1 ea MC PRN PRN PRN Reason: PROTOCOL Stop: 07/31/17 16:02 Multivitamins/Vitamin C (Theragran) 1 tab GT DAILY [facility] Stop: 07/31/17 08:59 Last Admin: 06/07/17 08:58 Dose: 1 tab Ondansetron HCl (Zofran) 4 mg IV Q8H PRN PRN Reason: Nausea / Vomiting Stop: 07/30/17 13:41 Sodium Phosphate (Fleet Enema) 133 ml RC DAILY PRN PRN Reason: Constipation Stop: 07/30/17 13:39 General: no acute distress, well developed, well nourished HEENT: atraumatic, normocephalic, PERRLA, EOMI Neck: supple, no thyromegaly Cardiovascular: S1S2, regular Lungs: clear to auscultation bilaterally, rhonchi Abdomen: soft, no tender, no distended Extremities: no cyanosis, no clubbing, no edema Neurological: other (Unresponsive.) - Procedures Procedures: Procedures Procedure Code Date INSERT EMERGENCY AIRWAY 47383 05/31/17 INSERTION OF ENDOTRACHEAL AIRWAY INTO [place], VIA OPENING [id number] 05/31/17 RESPIRATORY VENTILATION, GREATER THAN 96 CONSECUTIVE HOURS [id number] 05/31/17 VENT MGMT INPAT INIT DAY 30526 05/31/17 Infectious Disease Assmt/Plan - Problem List Patient Problems: All Active Problems COUGH AND CONGESTION (Acute) - Assessment Assessment: 1. Sepsis. 2. G Tube site ESBL + E coli. 3. Pneumonia. 4. Acute respiratory failure and went dependence. 5. Altered mental status unresponsiveness, likely secondary to toxic metabolic encephalopathy. 6. Cerebral palsy. - Plan Plan: Continue meropenem. Nutritional Asmnt/Malnutr-PDOC - Dietary Evaluation Malnutrition Findings (Please click <Entered> for more info): Nutritional Asmnt/Malnutrition Start: 06/01/17 17: 31 Text: Status: Complete Freq: Document 06/01/17 17:31 LCHENG (Rec: 06/01/17 17:45 LCHENG [id number]) Nutritional Asmnt/Malnutrition Patient General Information Nutritional Screening High Risk Consult Diagnosis renal failure, prespiratory failure r/o PNA Pertinent Medical Hx/Surgical Hx dementia, MR anemia, spastic quadriplegia, cerebral palsy, seizure, aspiration PNA, s/p respiratory failure, spsis, hyponatremia, gastroenteritis, PEG Subjective Information Consult received for Anibal 13 and pressure ulcer. Pt seen resting in bed at the time of visit, intubated, non-verbal noted. TF not running at this time. Current Diet Order/ Nutrition Support Isosource 1.5 87ml/hr x 17hr Pertinent Medications vitamin C, vitamin D3, D5w, teragran, piperacillin, miralax, cancomycin Pertinent Labs 06/01 na 160, Cl 120, K 4.1, BUN 29, Cr 0.3, Glucose 242, A1c 5.1, Ca 8.4, Mg 2.8 Nutritional Hx/Data Height 1.68 m Height (Calculated Centimeters) 167.6 Current Weight (lbs) 47.854 kg Weight (Calculated Kilograms) 47.9 Weight (Calculated Grams) 35131.0 [place] Body Weight 142 % [place] Body Weight 94 Body Mass Index (BMI) 17.0 Weight Status Underweight GI Symptoms GI Symptoms None Last BM none Difficult in: None Usual diet at home Jevity 1.5 87ml/hr x 17hr Skin Integrity/Comment: decubitus ulceration to sacrum Estimated Nutritional Goals Calories/Kcals/Kg 25-30 Kcals Calculated 1822-1242 based on IBW 65kg Protein g/k.2-1.4 Protein Calculated 78-91 consider respiratory failure and skin probelm Nutritional Problem 1. Problem Problem excessive intake from enteral feeding Etiology current TF regimen providing excessive calorie and protein than estimated nutritional needs Signs/Symptoms: current TF providing 114% of calorie needs and 110% of protein needs Malnutrition Alert Protein-Calorie Malnutrition N/A Is there a minimum of two criteria No selected? Query Text:Check all the applicable criteria. A minimum of two criteria are recommended for diagnosis of either severe or non-severe malnutrition. Intervention/Recommendation Comments 1. Recommend modify TF rate to 70ml/hr x 17hr to meet 100% of nutritional needs and avoid overfeeding. 2. Monitor TF rate, tolerance, wt weekly, skin integrity and labs 3. F/U as moderate risk in 3-5 days, 04/25-04/27 Expected Outcomes/Goals Expected Outcomes/Goals 1. Pt to meet 75-100% of nutritional needs via nutrition support with tolerance 2. 2. Wt stability, skin to remain intact, labs to approach WNL.
[2017-06-08] MEDS: Albuterol Nebulizer 2.5mg/3mL HHN SCH ×6 (03:48→22:26)
[2017-06-08] MEDS: Ipratropium Neb 0.5 mg/2.5 mL UD HHN SCH ×6 (03:48→22:26)
[2017-06-08] MEDS: methylPREDNISolone SS 40 mg Vial IVP SCH ×3 (04:26→21:30)
[2017-06-08 07:27] LABS: BASOPHILE ABSOLUTE 0.1 Th/cumm (0-0.2); HEMOGLOBIN 10.7 gm/dL (12-16); LYMPHOCYTE ABSOLUTE 0.4 Th/cmm (1.5-3.0); MEAN CORPUSCULAR HEMOGLOBIN 30.8 pg (26.0-30.0); MEAN CORPUSCULAR HGB CONC 34.2 pg (28.0-36.0); MEAN PLATELET VOLUME 9.1 fl; MONOCYTE ABSOLUTE 0.1 Th/cmm (0.3-1.0); NEUTROPHILE ABSOLUTE 12.7 Th/cmm (1.8-8.0); PLATELET COUNT 204 Th/cmm (150-400); RED BLOOD COUNT 3.48 Mil/cmm (4.30-5.70); RED CELL DISTRIBUTION WIDTH 15.4 % (11.5-20.0)
[2017-06-08 07:30] LABS: HEMATOCRIT 31.4 % (41.0-60); WHITE BLOOD COUNT 13.3 Th/cmm (4.8-10.8)
[2017-06-08 07:47] LABS: ANION GAP 9.6 (7.0-16.0); BUN - UREA NITROGEN 25 mg/dL (7-25); CARBON DIOXIDE 31.3 mEq/L (21.0-31.0); CHLORIDE 102 mEq/L (98-107); CREATININE - SERUM 0.2 mg/dL (0.7-1.3); GFR AFRICAN-AMERICAN > 60.0 ml/min (>90); GFR NON AFRICAN-AMERICAN > 60.0 ml/min; GLUCOSE 133 mg/dL (70-105); POTASSIUM SERUM 4.9 mEq/L (3.5-5.1); SODIUM SERUM 138 mEq/L (136-145)
[2017-06-08] MEDS: Chlorhexidine Gluconate 0.12% 15mL Mouthwash MM SCH ×2 (08:10→23:35)
[2017-06-08] MEDS: Diltiazem 5 mg/mL 5mL Vial IVP PRN (08:11)
[2017-06-08] MEDS: Multivitamin Tab GT SCH (08:16)
[2017-06-08] MEDS: Venelex 60gm Tube TP SCH ×2 (08:17→18:53)
[2017-06-08] MEDS: Lactulose 10 Gm/15 mL 30mL UDC PO SCH ×2 (08:18→16:52)
--- NOTE | 2017-06-08 09:04 | Diagnostic Imaging Report ---
Exam: Portable chest x-ray. HISTORY: Shortness of breath. Findings: Portable examination of the chest at 0845 hours reviewed compatible prior study 06/05/2017 demonstrates basilar infiltrates. The mediastinal structures midline, bony thorax intact, the costophrenic angles are clear. There are distention of the stomach appreciated. The endotracheal tube no longer visualized. IMPRESSION: Bilateral basilar infiltrates, follow-up examination recommended.
--- NOTE | 2017-06-08 14:37 | Internal Medicine Prog Note ---
Internal Medicine Subjective - Subjective Service Date: 06/08/17 (patient now extubated. doing well. ) Patient is:: awake, non-verbal, non-interactive, in bed, other Patient Complaints of:: congestion Per staff patient has:: tolerating meds Internal Medicine Objective - Results Result Diagrams: 06/08/17 06:45 06/08/17 06:45 Recent Labs: Laboratory Last Values WBC 13.3 Th/cmm (4.8-10.8) H 06/08/17 06:45 RBC 3.48 Mil/cmm (4.30-5.70) L 06/08/17 06:45 Hgb 10.7 gm/dL (12-16) L 06/08/17 06:45 Hct 31.4 % (41.0-60) L D 06/08/17 06:45 MCV 90.0 fl (80-99) 06/08/17 06:45 MCH 30.8 pg (26.0-30.0) H 06/08/17 06:45 MCHC Differential 34.2 pg (28.0-36.0) 06/08/17 06:45 RDW 15.4 % (11.5-20.0) 06/08/17 06:45 Plt Count 204 Th/cmm (150-400) 06/08/17 06:45 MPV 9.1 fl 06/08/17 06:45 Neutrophils % 89.7 % (40.0-80.0) H 06/05/17 05:48 Band Neutrophils % 5 % (0-10) 06/07/17 06:30 Lymphocytes % 6.6 % (20.0-50.0) L 06/05/17 05:48 Monocytes % 3.6 % (2.0-10.0) 06/05/17 05:48 Eosinophils % 0.1 % (0.0-5.0) 06/05/17 05:48 Basophils % 0.0 % (0.0-2.0) 06/05/17 05:48 Neutrophils (Manual) 81 % (40-80) H 06/07/17 06:30 Lymphocytes 10 % (20-50) L 06/07/17 06:30 Monocytes 4 % (2-10) 06/07/17 06:30 Platelet Estimate ADEQUATE (NORMAL) 06/07/17 06:30 Specimen Source Arterial 06/07/17 13:05 Sample Site Right Radial 06/07/17 13:05 pH 7.52 (7.35-7.45) H 06/07/17 13:05 pCO2 45.0 mmHg (35.0-45.0) 06/07/17 13:05 pO2 95.0 mmHg (80.0-100.0) 06/07/17 13:05 HCO3 34.6 mEq/L (20.0-26.0) H 06/07/17 13:05 Base Excess 12.4 mEq/L (-3.0-3.0) H 06/07/17 13:05 O2 Saturation 98.0 % (92.0-100.0) 06/07/17 13:05 Endy Test YES 06/07/17 13:05 Vent Rate NA 06/07/17 13:05 Inspired O2 40 06/07/17 13:05 Tidal Volume NA 06/07/17 13:05 PEEP NA 06/07/17 13:05 Pressure (ins/psv/peep) NA 06/07/17 13:05 Critical Value E.BABCOCK 06/07/17 13:05 Sodium 138 mEq/L (136-145) 06/08/17 06:45 Potassium 4.9 mEq/L (3.5-5.1) 06/08/17 06:45 Chloride 102 mEq/L (98-107) 06/08/17 06:45 Carbon Dioxide 31.3 mEq/L (21.0-31.0) H 06/08/17 06:45 Anion Gap 9.6 (7.0-16.0) 06/08/17 06:45 BUN 25 mg/dL (7-25) 06/08/17 06:45 Creatinine 0.2 mg/dL (0.7-1.3) L 06/08/17 06:45 Est GFR ( Amer) > 60.0 ml/min (>90) 06/08/17 06:45 Est GFR (Non-Af Amer) > 60.0 ml/min 06/08/17 06:45 BUN/Creatinine Ratio 125.0 06/08/17 06:45 Glucose 133 mg/dL (70-105) H 06/08/17 06:45 POC Glucose 213 MG/DL (70 - 105) H 06/01/17 06:53 Hemoglobin A1c % 5.1 % (4.0-6.0) 06/01/17 05:30 Whole Bld Lactic Acid 3.45 mmol/L (0.60-1.99) H* 06/03/17 06:45 Calcium 8.0 mg/dL (8.6-10.3) L 06/08/17 06:45 Magnesium 2.1 mg/dL (1.9-2.7) 06/07/17 06:30 Total Bilirubin 0.3 mg/dL (0.3-1.0) 06/04/17 06:45 AST 29 U/L (13-39) 06/04/17 06:45 ALT 41 U/L (7-52) 06/04/17 06:45 Alkaline Phosphatase 57 U/L (34-104) 06/04/17 06:45 Ammonia 64 umol/L (16-53) H 06/04/17 06:45 B-Natriuretic Peptide 129.0 pg/mL (5.0-100.0) H 06/04/17 06:45 Total Protein 4.3 gm/dL (6.0-8.3) L 06/04/17 06:45 Albumin 2.1 gm/dL (4.2-5.5) L 06/04/17 06:45 Globulin 2.2 gm/dL 06/04/17 06:45 Albumin/Globulin Ratio 1.0 (1.0-1.8) 06/04/17 06:45 TSH 0.72 uIU/ml (0.34-5.60) 06/01/17 05:30 Urine Source CATH 05/31/17 12:35 Urine Color YELLOW 05/31/17 12:35 Urine Clarity CLOUDY (CLEAR) 05/31/17 12:35 Urine pH 8.5 (4.6 - 8.0) 05/31/17 12:35 Ur Specific [place] 1.010 (1.005-1.030) 05/31/17 12:35 Urine Protein 30 mg/dL (NEGATIVE) H 05/31/17 12:35 Urine Glucose (UA) NEGATIVE mg/dL (NEGATIVE) 05/31/17 12:35 Urine Ketones NEGATIVE mg/dL (NEGATIVE) 05/31/17 12:35 Urine Blood MODERATE (NEGATIVE) H 05/31/17 12:35 Urine Nitrate NEGATIVE (NEGATIVE) 05/31/17 12:35 Urine Bilirubin NEGATIVE (NEGATIVE) 05/31/17 12:35 Urine Urobilinogen 0.2 E.U./dL (0.2 - 1.0) 05/31/17 12:35 Ur Leukocyte Esterase NEGATIVE (NEGATIVE) 05/31/17 12:35 Urine RBC >100 /hpf (0-5) H 05/31/17 12:35 Urine WBC 2-5 /hpf (0-5) H 05/31/17 12:35 Ur Epithelial Cells NONE SEEN /lpf (FEW) 05/31/17 12:35 Urine Bacteria NONE SEEN /hpf (NONE SEEN) 05/31/17 12:35 Stool Occult Blood NEGATIVE (NEGATIVE) 06/05/17 06:00 Gentamicin Peak 5.1 ug/ml (4.0-8.0) L 06/06/17 12:30 Gentamicin Trough 0.6 ug/ml (0.2-2.0) 06/06/17 08:00 Vancomycin Trough 10.7 ug/mL (10-20) 06/04/17 09:00 Influenza A (Rapid) NEG FOR INF A 06/05/17 08:00 Influenza B (Rapid) NEG FOR INF B 06/05/17 08:00 Blood Type O POSITIVE 06/02/17 11:40 Antibody Screen NEGATIVE 06/02/17 11:40 Crossmatch See Detail 06/02/17 11:40 - Physical Exam Vitals and I&O: Vital Signs Temp 98 F 06/08/17 13:00 Pulse 114 06/08/17 14:00 Resp 20 06/08/17 14:00 BP 110/68 06/08/17 14:00 Pulse Ox 98 06/08/17 14:00 Intake & Output 06/07/17 06/08/17 06/08/17 18:59 06:59 18:59 Intake Total 203 800 120 Output Total 3000 850 Balance 203 -2200 -730 Weight (lbs) 106 lb 106 lb Intake: Intake, IV Amount 203 200 Gentamicin 120 mg In 103 Sodium Chloride 0.9% 100 ml @ 100 mls/hr IV Q24H [facility]ERNA[facility] Rx#:[id number] Meropenem 1 gm In 100 200 Dextrose 5% 100 ml @ 100 mls/hr IV Q8HR FERNANDO Rx#: [id number] Other 600 120 Output: Urine 3000 850 Other: # Bowel Movements 0 1 Stool Characteristics Soft Soft Soft Brown Brown Brown Active Medications: Current Medications Acetaminophen (Tylenol 650mg Supp) 650 mg RC Q4HR PRN PRN Reason: FEVER >100.1 Stop: 07/30/17 13:39 Acetaminophen (Tylenol) 325 mg PO Q6H PRN PRN Reason: PAIN/FEVER Stop: 07/30/17 16:47 Last Admin: 06/06/17 17:13 Dose: 325 mg Acetylcysteine (Mucomyst 20%) 3 ml HHN Q4HRT [facility] Stop: 08/06/17 18:59 Last Admin: 06/08/17 03:00 Dose: Not Given Albuterol Sulfate (Albuterol 2.5mg/3ml Neb Ud) 1.25 mg HHN Q4HRT [facility] Stop: 08/06/17 18:59 Last Admin: 06/08/17 11:28 Dose: 1.25 mg Ascorbic Acid (Vitamin C) 500 mg GT DAILY [facility] Stop: 07/31/17 08:59 Last Admin: 06/08/17 08:16 Dose: 500 mg Bisacodyl (Dulcolax 10 Mg Supp) 10 mg RC Q72HR PRN PRN Reason: Constipation Stop: 07/30/17 13:39 [place] Oil/[place] Balsam/Trypsin (Venelex) 1 appl TP BID [facility] Stop: 07/31/17 16:59 Last Admin: 06/08/17 08:17 Dose: 1 appl Chlorhexidine Gluconate (Peridex) 15 ml MM 0800,2000 [facility] Stop: 07/31/17 19:59 Last Admin: 06/08/17 08:10 Dose: 15 ml Cholecalciferol (Vitamin D3) 500 iu PO DAILY [facility] Stop: 07/31/17 08:59 Last Admin: 06/08/17 08:16 Dose: 500 iu Diltiazem HCl (Cardizem) 20 mg IVP Q4H PRN PRN Reason: HR Greater than 130 per min Stop: 07/30/17 13:40 Last Admin: 06/08/17 08:11 Dose: 20 mg Famotidine (Pepcid) 20 mg IVP Q12H [facility] Stop: 07/31/17 12:44 Last Admin: 01/12/18 12:41 Dose: 20 mg Guaifenesin (Robitussin) 200 mg PO Q4HR PRN PRN Reason: Cough or Congestion Stop: 07/30/17 13:41 Heparin Sodium (Porcine) (Heparin) 5,000 units SUBQ Q12H [facility] Stop: 07/31/17 20:59 Last Admin: 06/08/17 08:17 Dose: 5,000 units Dextrose (D5w) 1,000 mls @ 0 mls/hr IV .Q0M [facility] PRN Reason: Wide Open Stop: 07/31/17 16:46 Last Infusion: 06/01/17 19:08 Dose: Infused Norepinephrine Bitartrate 4 mg (/ Dextrose) 254 mls @ 30.48 mls/hr IV TITR PRN ; Protocol; 8 MCG/MIN PRN Reason: BP MAINTENANCE (PER PROTOCOL) Stop: 07/31/17 16:46 Last Titration: 06/03/17 00:00 Dose: 0 mcg/min, 0 mls/hr Meropenem 1 gm/ Dextrose 100 mls @ 100 mls/hr IV Q8HR [facility] Stop: 08/02/17 12:59 Last Admin: 06/08/17 12:41 Dose: 100 mls/hr Gentamicin Sulfate 120 mg/ (Sodium Chloride) 103 mls @ 100 mls/hr IV Q24H [facility] Stop: 08/04/17 08:59 Last Admin: 06/08/17 09:09 Dose: 100 mls/hr Ipratropium [place] (Atrovent Neb 0.5mg/2.5ml) 0.5 mg HHN Q4HRT [facility] Stop: 08/06/17 18:59 Last Admin: 06/08/17 11:28 Dose: 0.5 mg Lactulose (Cephulac) 30 gm PO BID [facility] Stop: 08/03/17 16:59 Last Admin: 06/08/17 08:18 Dose: Not Given Methylprednisolone Sodium Succinate (Solu-Medrol) 40 mg IVP Q8HR [facility] Stop: 07/30/17 20:59 Last Admin: 06/08/17 12:41 Dose: 40 mg Miscellaneous (Vte Chemical Prophylaxis Screen/ Admission) 1 ea PRN PRN PRN Reason: PROTOCOL Stop: 07/31/17 14:00 Miscellaneous (Probiotic Screen) 1 ea PRN PRN PRN Reason: PROTOCOL Stop: 07/31/17 16:02 Multivitamins/Vitamin C (Theragran) 1 tab GT DAILY [facility] Stop: 07/31/17 08:59 Last Admin: 06/08/17 08:16 Dose: 1 tab Ondansetron HCl (Zofran) 4 mg IV Q8H PRN PRN Reason: Nausea / Vomiting Stop: 07/30/17 13:41 Sodium Phosphate (Fleet Enema) 133 ml RC DAILY PRN PRN Reason: Constipation Stop: 07/30/17 13:39 General: weak HEENT: NC/AT, PERRLA Neck: No LAD Lungs: ronchi Cardiovascular: RRR, Normal S1, Normal S2, without murmur Abdomen: soft, non-tender, non-distended, +GT, positive bowel sound Extremities: excoriation, ecchymosis, contracture, deformity, atrophy Neurological: unable to follow command - Procedures Procedures: Procedures Procedure Code Date INSERT EMERGENCY AIRWAY 58775 05/31/17 INSERTION OF ENDOTRACHEAL AIRWAY INTO [place], VIA OPENING [id number] 05/31/17 RESPIRATORY VENTILATION, GREATER THAN 96 CONSECUTIVE HOURS [id number] 05/31/17 VENT MGMT INPAT INIT DAY 64197 05/31/17 Internal Medicine Assmt/Plan - Assessment Assessment: S/p cardiopulmonary arrest, now intubated on vent lactic acidosis Acute Respiratory Failure Sepsis PNA leukocytosis hypokalemia acute renal insufficiency spastic quadriplegia seizures - Plan Plan: inhalation treatments empiric ivantibiotics pulmo follow up continue current plan of care Nutritional Asmnt/Malnutr-PDOC - Dietary Evaluation Malnutrition Findings (Please click <Entered> for more info): Nutritional Asmnt/Malnutrition Start: 06/01/17 17: 31 Text: Status: Complete Freq: Document 06/01/17 17:31 LCHENG (Rec: 06/01/17 17:45 [email or web address] [id number]) Nutritional Asmnt/Malnutrition Patient General Information Nutritional Screening High Risk Consult Diagnosis renal failure, prespiratory failure r/o PNA Pertinent Medical Hx/Surgical Hx dementia, MR anemia, spastic quadriplegia, cerebral palsy, seizure, aspiration PNA, s/p respiratory failure, spsis, hyponatremia, gastroenteritis, PEG Subjective Information Consult received for Anibal 13 and pressure ulcer. Pt seen resting in bed at the time of visit, intubated, non-verbal noted. TF not running at this time. Current Diet Order/ Nutrition Support Isosource 1.5 87ml/hr x 17hr Pertinent Medications vitamin C, vitamin D3, D5w, teragran, piperacillin, miralax, cancomycin Pertinent Labs 06/01 na 160, Cl 120, K 4.1, BUN 29, Cr 0.3, Glucose 242, A1c 5.1, Ca 8.4, Mg 2.8 Nutritional Hx/Data Height 5 ft 6 in Height (Calculated Centimeters) 167.6 Current Weight (lbs) 105 lb 8 oz Weight (Calculated Kilograms) 47.9 Weight (Calculated Grams) 50366.0 [place] Body Weight 142 % [place] Body Weight 94 Body Mass Index (BMI) 17.0 Weight Status Underweight GI Symptoms GI Symptoms None Last BM none Difficult in: None Usual diet at home Jevity 1.5 87ml/hr x 17hr Skin Integrity/Comment: decubitus ulceration to sacrum Estimated Nutritional Goals Calories/Kcals/Kg 25-30 Kcals Calculated [id number] based on IBW 65kg Protein g/k.2-1.4 Protein Calculated 78-91 consider respiratory failure and skin probelm Nutritional Problem 1. Problem Problem excessive intake from enteral feeding Etiology current TF regimen providing excessive calorie and protein than estimated nutritional needs Signs/Symptoms: current TF providing 114% of calorie needs and 110% of protein needs Malnutrition Alert Protein-Calorie Malnutrition N/A Is there a minimum of two criteria No selected? Query Text:Check all the applicable criteria. A minimum of two criteria are recommended for diagnosis of either severe or non-severe malnutrition. Intervention/Recommendation Comments 1. Recommend modify TF rate to 70ml/hr x 17hr to meet 100% of nutritional needs and avoid overfeeding. 2. Monitor TF rate, tolerance, wt weekly, skin integrity and labs 3. F/U as moderate risk in 3-5 days, 04/25-04/27 Expected Outcomes/Goals Expected Outcomes/Goals 1. Pt to meet 75-100% of nutritional needs via nutrition support with tolerance 2. 2. Wt stability, skin to remain intact, labs to approach WNL.
[2017-06-08] MEDS: D5-0.45NS 1,000 ML IV SCH (16:53)
[2017-06-09] MEDS: Albuterol Nebulizer 2.5mg/3mL HHN SCH ×6 (03:09→23:20)
[2017-06-09] MEDS: Ipratropium Neb 0.5 mg/2.5 mL UD HHN SCH ×6 (03:09→23:20)
[2017-06-09] MEDS: methylPREDNISolone SS 40 mg Vial IVP SCH ×3 (05:06→21:00)
[2017-06-09 07:04] LABS: ANION GAP 9.6 (7.0-16.0); BUN - UREA NITROGEN 27 mg/dL (7-25); CARBON DIOXIDE 31.8 mEq/L (21.0-31.0); CHLORIDE 101 mEq/L (98-107); CREATININE - SERUM 0.3 mg/dL (0.7-1.3); GFR AFRICAN-AMERICAN > 60.0 ml/min (>90); GFR NON AFRICAN-AMERICAN > 60.0 ml/min; GLUCOSE 159 mg/dL (70-105); POTASSIUM SERUM 4.4 mEq/L (3.5-5.1); SODIUM SERUM 138 mEq/L (136-145)
[2017-06-09 07:51] LABS: HEMATOCRIT 32.3 % (41.0-60); HEMOGLOBIN 11.1 gm/dL (12-16); LYMPHOCYTE ABSOLUTE 0.5 Th/cmm (1.5-3.0); MEAN CELL VOLUME 90.6 fl (80-99); MEAN CORPUSCULAR HEMOGLOBIN 31.1 pg (26.0-30.0); MEAN CORPUSCULAR HGB CONC 34.3 pg (28.0-36.0); MEAN PLATELET VOLUME 9.2 fl; MONOCYTE ABSOLUTE 0.2 Th/cmm (0.3-1.0); PLATELET COUNT 197 Th/cmm (150-400); RED BLOOD COUNT 3.56 Mil/cmm (4.30-5.70)
[2017-06-09 07:56] LABS: WHITE BLOOD COUNT 12.7 Th/cmm (4.8-10.8)
[2017-06-09] MEDS: Lactulose 10 Gm/15 mL 30mL UDC PO SCH ×2 (09:51→17:35)
[2017-06-09] MEDS: Gentamicin 160 MG in Sodium Chloride 0.9% 100 ML IV SCH (09:51)
[2017-06-09] MEDS: Multivitamin Tab GT SCH (09:52)
[2017-06-09] MEDS: Venelex 60gm Tube TP SCH ×2 (09:52→17:35)
[2017-06-09] MEDS: D5-0.45NS 1,000 ML IV SCH (12:33)
--- NOTE | 2017-06-09 16:25 | Internal Medicine Prog Note ---
Internal Medicine Subjective - Subjective Service Date: 06/09/17 Patient is:: awake, non-verbal, non-interactive, in bed, other Patient Complaints of:: congestion Per staff patient has:: tolerating meds Internal Medicine Objective - Results Result Diagrams: 06/09/17 06:30 06/09/17 06:30 Recent Labs: Laboratory Last Values WBC 12.7 Th/cmm (4.8-10.8) H 06/09/17 06:30 RBC 3.56 Mil/cmm (4.30-5.70) L 06/09/17 06:30 Hgb 11.1 gm/dL (12-16) L 06/09/17 06:30 Hct 32.3 % (41.0-60) L 06/09/17 06:30 MCV 90.6 fl (80-99) 06/09/17 06:30 MCH 31.1 pg (26.0-30.0) H 06/09/17 06:30 MCHC Differential 34.3 pg (28.0-36.0) 06/09/17 06:30 RDW 16.0 % (11.5-20.0) 06/09/17 06:30 Plt Count 197 Th/cmm (150-400) 06/09/17 06:30 MPV 9.2 fl 06/09/17 06:30 Neutrophils % 89.7 % (40.0-80.0) H 06/05/17 05:48 Band Neutrophils % 5 % (0-10) 06/07/17 06:30 Lymphocytes % 6.6 % (20.0-50.0) L 06/05/17 05:48 Monocytes % 3.6 % (2.0-10.0) 06/05/17 05:48 Eosinophils % 0.1 % (0.0-5.0) 06/05/17 05:48 Basophils % 0.0 % (0.0-2.0) 06/05/17 05:48 Neutrophils (Manual) 81 % (40-80) H 06/07/17 06:30 Lymphocytes 10 % (20-50) L 06/07/17 06:30 Monocytes 4 % (2-10) 06/07/17 06:30 Platelet Estimate ADEQUATE (NORMAL) 06/07/17 06:30 Specimen Source Arterial 06/07/17 13:05 Sample Site Right Radial 06/07/17 13:05 pH 7.52 (7.35-7.45) H 06/07/17 13:05 pCO2 45.0 mmHg (35.0-45.0) 06/07/17 13:05 pO2 95.0 mmHg (80.0-100.0) 06/07/17 13:05 HCO3 34.6 mEq/L (20.0-26.0) H 06/07/17 13:05 Base Excess 12.4 mEq/L (-3.0-3.0) H 06/07/17 13:05 O2 Saturation 98.0 % (92.0-100.0) 06/07/17 13:05 Endy Test YES 06/07/17 13:05 Vent Rate NA 06/07/17 13:05 Inspired O2 40 06/07/17 13:05 Tidal Volume NA 06/07/17 13:05 PEEP NA 06/07/17 13:05 Pressure (ins/psv/peep) NA 06/07/17 13:05 Critical Value E.BABCOCK 06/07/17 13:05 Sodium 138 mEq/L (136-145) 06/09/17 06:30 Potassium 4.4 mEq/L (3.5-5.1) 06/09/17 06:30 Chloride 101 mEq/L (98-107) 06/09/17 06:30 Carbon Dioxide 31.8 mEq/L (21.0-31.0) H 06/09/17 06:30 Anion Gap 9.6 (7.0-16.0) 06/09/17 06:30 BUN 27 mg/dL (7-25) H 06/09/17 06:30 Creatinine 0.3 mg/dL (0.7-1.3) L 06/09/17 06:30 Est GFR ( Amer) > 60.0 ml/min (>90) 06/09/17 06:30 Est GFR (Non-Af Amer) > 60.0 ml/min 06/09/17 06:30 BUN/Creatinine Ratio 90.0 06/09/17 06:30 Glucose 159 mg/dL (70-105) H 06/09/17 06:30 POC Glucose 213 MG/DL (70 - 105) H 06/01/17 06:53 Hemoglobin A1c % 5.1 % (4.0-6.0) 06/01/17 05:30 Whole Bld Lactic Acid 3.45 mmol/L (0.60-1.99) H* 06/03/17 06:45 Calcium 8.0 mg/dL (8.6-10.3) L 06/09/17 06:30 Magnesium 2.1 mg/dL (1.9-2.7) 06/07/17 06:30 Total Bilirubin 0.3 mg/dL (0.3-1.0) 06/04/17 06:45 AST 29 U/L (13-39) 06/04/17 06:45 ALT 41 U/L (7-52) 06/04/17 06:45 Alkaline Phosphatase 57 U/L (34-104) 06/04/17 06:45 Ammonia 64 umol/L (16-53) H 06/04/17 06:45 B-Natriuretic Peptide 129.0 pg/mL (5.0-100.0) H 06/04/17 06:45 Total Protein 4.3 gm/dL (6.0-8.3) L 06/04/17 06:45 Albumin 2.1 gm/dL (4.2-5.5) L 06/04/17 06:45 Globulin 2.2 gm/dL 06/04/17 06:45 Albumin/Globulin Ratio 1.0 (1.0-1.8) 06/04/17 06:45 TSH 0.72 uIU/ml (0.34-5.60) 06/01/17 05:30 Urine Source CATH 05/31/17 12:35 Urine Color YELLOW 05/31/17 12:35 Urine Clarity CLOUDY (CLEAR) 05/31/17 12:35 Urine pH 8.5 (4.6 - 8.0) 05/31/17 12:35 Ur Specific [place] 1.010 (1.005-1.030) 05/31/17 12:35 Urine Protein 30 mg/dL (NEGATIVE) H 05/31/17 12:35 Urine Glucose (UA) NEGATIVE mg/dL (NEGATIVE) 05/31/17 12:35 Urine Ketones NEGATIVE mg/dL (NEGATIVE) 05/31/17 12:35 Urine Blood MODERATE (NEGATIVE) H 05/31/17 12:35 Urine Nitrate NEGATIVE (NEGATIVE) 05/31/17 12:35 Urine Bilirubin NEGATIVE (NEGATIVE) 05/31/17 12:35 Urine Urobilinogen 0.2 E.U./dL (0.2 - 1.0) 05/31/17 12:35 Ur Leukocyte Esterase NEGATIVE (NEGATIVE) 05/31/17 12:35 Urine RBC >100 /hpf (0-5) H 05/31/17 12:35 Urine WBC 2-5 /hpf (0-5) H 05/31/17 12:35 Ur Epithelial Cells NONE SEEN /lpf (FEW) 05/31/17 12:35 Urine Bacteria NONE SEEN /hpf (NONE SEEN) 05/31/17 12:35 Stool Occult Blood NEGATIVE (NEGATIVE) 06/05/17 06:00 Gentamicin Peak 5.1 ug/ml (4.0-8.0) L 06/06/17 12:30 Gentamicin Trough 0.6 ug/ml (0.2-2.0) 06/06/17 08:00 Vancomycin Trough 10.7 ug/mL (10-20) 06/04/17 09:00 Influenza A (Rapid) NEG FOR INF A 06/05/17 08:00 Influenza B (Rapid) NEG FOR INF B 06/05/17 08:00 Blood Type O POSITIVE 06/02/17 11:40 Antibody Screen NEGATIVE 06/02/17 11:40 Crossmatch See Detail 06/02/17 11:40 - Physical Exam Vitals and I&O: Vital Signs Temp 96.2 F 06/09/17 13:00 Pulse 121 06/09/17 13:00 Resp 25 06/09/17 13:00 BP 103/51 06/09/17 13:00 Pulse Ox 94 06/09/17 13:00 Intake & Output 06/08/17 06/09/17 06/09/17 18:59 06:59 18:59 Intake Total 220 855.833 431.5 Output Total 1450 Balance -1230 855.833 431.5 Weight (lbs) 106 lb 105 lb 3.2 oz Intake: Intake, IV Amount 100 855.833 431.5 D5-0.45NS 1,000 ml @ 50 655.833 327.5 mls/hr IV .Q20H [facility] Rx#: [id number] Gentamicin 160 mg In 104 Sodium Chloride 0.9% 100 ml @ 100 mls/hr IV Q24HR@ 0900 [facility] Rx#:[id number] Meropenem 1 gm In 100 200 Dextrose 5% 100 ml @ 100 mls/hr IV Q8HR [facility] Rx#: [id number] Other 120 Output: Urine 1450 Other: # Bowel Movements 1 Stool Characteristics Soft Soft Brown Brown Active Medications: Current Medications Acetaminophen (Tylenol 650mg Supp) 650 mg RC Q4HR PRN PRN Reason: FEVER >100.1 Stop: 07/30/17 13:39 Acetaminophen (Tylenol) 325 mg PO Q6H PRN PRN Reason: PAIN/FEVER Stop: 07/30/17 16:47 Last Admin: 06/06/17 17:13 Dose: 325 mg Acetylcysteine (Mucomyst 10%) 6 ml HHN Q4HRT [facility] Stop: 08/08/17 14:59 Albuterol Sulfate (Albuterol 2.5mg/3ml Neb Ud) 1.25 mg HHN Q4HRT [facility] Stop: 08/06/17 18:59 Last Admin: 06/09/17 11:28 Dose: 1.25 mg Ascorbic Acid (Vitamin C) 500 mg GT DAILY [facility] Stop: 07/31/17 08:59 Last Admin: 06/09/17 09:52 Dose: 500 mg Bisacodyl (Dulcolax 10 Mg Supp) 10 mg RC Q72HR PRN PRN Reason: Constipation Stop: 07/30/17 13:39 [place] Oil/[place] Balsam/Trypsin (Venelex) 1 appl TP BID [facility] Stop: 07/31/17 16:59 Last Admin: 06/09/17 09:52 Dose: 1 appl Cholecalciferol (Vitamin D3) 500 iu PO DAILY [facility] Stop: 07/31/17 08:59 Last Admin: 06/09/17 09:52 Dose: 500 iu Diltiazem HCl (Cardizem) 20 mg IVP Q4H PRN PRN Reason: HR Greater than 130 per min Stop: 07/30/17 13:40 Last Admin: 06/08/17 08:11 Dose: 20 mg Famotidine (Pepcid) 20 mg IVP Q12H [facility] Stop: 07/31/17 12:44 Last Admin: 06/09/17 12:33 Dose: 20 mg Guaifenesin (Robitussin) 200 mg PO Q4HR PRN PRN Reason: Cough or Congestion Stop: 07/30/17 13:41 Heparin Sodium (Porcine) (Heparin) 5,000 units SUBQ Q12H [facility] Stop: 07/31/17 20:59 Last Admin: 06/09/17 09:53 Dose: 5,000 units Dextrose (D5w) 1,000 mls @ 0 mls/hr IV .Q0M FERNANDO PRN Reason: Wide Open Stop: 07/31/17 16:46 Last Infusion: 06/01/17 19:08 Dose: Infused Norepinephrine Bitartrate 4 mg (/ Dextrose) 254 mls @ 30.48 mls/hr IV TITR PRN ; Protocol; 8 MCG/MIN PRN Reason: BP MAINTENANCE (PER PROTOCOL) Stop: 07/31/17 16:46 Last Titration: 06/03/17 00:00 Dose: 0 mcg/min, 0 mls/hr Meropenem 1 gm/ Dextrose 100 mls @ 100 mls/hr IV Q8HR [facility] Stop: 08/02/17 12:59 Last Admin: 06/09/17 12:32 Dose: 100 mls/hr Dextrose/Sodium Chloride (D5-0.45ns) 1,000 mls @ 50 mls/hr IV .Q20H [facility] Stop: 08/07/17 16:14 Last Admin: 06/09/17 12:33 Dose: 50 mls/hr Gentamicin Sulfate 160 mg/ (Sodium Chloride) 104 mls @ 100 mls/hr IV Q24HR@ 0900 [facility] Stop: 08/08/17 09:59 Last Infusion: 06/09/17 10:55 Dose: Infused Ipratropium [place] (Atrovent Neb 0.5mg/2.5ml) 0.5 mg HHN Q4HRT [facility] Stop: 08/06/17 18:59 Last Admin: 06/09/17 11:28 Dose: 0.5 mg Lactulose (Cephulac) 30 gm PO BID [facility] Stop: 08/03/17 16:59 Last Admin: 06/09/17 09:51 Dose: 30 gm Methylprednisolone Sodium Succinate (Solu-Medrol) 40 mg IVP Q8HR [facility] Stop: 07/30/17 20:59 Last Admin: 06/09/17 12:32 Dose: 40 mg Miscellaneous (Vte Chemical Prophylaxis Screen/ Admission) 1 ea [facility] PRN PRN PRN Reason: PROTOCOL Stop: 07/31/17 14:00 Miscellaneous (Probiotic Screen) 1 ea MC PRN PRN PRN Reason: PROTOCOL Stop: 07/31/17 16:02 Multivitamins/Vitamin C (Theragran) 1 tab GT DAILY [facility]ER[facility]O Stop: 07/31/17 08:59 Last Admin: 06/09/17 09:52 Dose: 1 tab Ondansetron HCl (Zofran) 4 mg IV Q8H PRN PRN Reason: Nausea / Vomiting Stop: 07/30/17 13:41 Sodium Phosphate (Fleet Enema) 133 ml RC DAILY PRN PRN Reason: Constipation Stop: 07/30/17 13:39 General: weak HEENT: NC/AT, PERRLA Neck: No LAD Lungs: ronchi Cardiovascular: RRR, Normal S1, Normal S2, without murmur Abdomen: soft, non-tender, non-distended, +GT, positive bowel sound Extremities: excoriation, ecchymosis, contracture, deformity, atrophy Neurological: unable to follow command - Procedures Procedures: Procedures Procedure Code Date INSERT EMERGENCY AIRWAY 79581 05/31/17 INSERTION OF ENDOTRACHEAL AIRWAY INTO [place], VIA OPENING [id number] 05/31/17 RESPIRATORY VENTILATION, GREATER THAN 96 CONSECUTIVE HOURS [id number] 05/31/17 VENT MGMT INPAT INIT DAY [id number] 05/31/17 Internal Medicine Assmt/Plan - Assessment Assessment: S/p cardiopulmonary arrest, now intubated on vent lactic acidosis Acute Respiratory Failure Sepsis PNA leukocytosis hypokalemia acute renal insufficiency spastic quadriplegia seizures - Plan Plan: aspiration precautions inhalation treatments empiric ivantibiotics pulmo follow up continue current plan of care Nutritional Asmnt/Malnutr-PDOC - Dietary Evaluation Malnutrition Findings (Please click <Entered> for more info): Nutritional Asmnt/Malnutrition Start: 06/01/17 17: 31 Text: Status: Complete Freq: Document 06/01/17 17:31 SHELBIE (Rec: 06/01/17 17:45 SHELBIE [id number]) Nutritional Asmnt/Malnutrition Patient General Information Nutritional Screening High Risk Consult Diagnosis renal failure, prespiratory failure r/o PNA Pertinent Medical Hx/Surgical Hx dementia, MR anemia, spastic quadriplegia, cerebral palsy, seizure, aspiration PNA, s/p respiratory failure, spsis, hyponatremia, gastroenteritis, PEG Subjective Information Consult received for [place] 13 and pressure ulcer. Pt seen resting in bed at the time of visit, intubated, non-verbal noted. TF not running at this time. Current Diet Order/ Nutrition Support Isosource 1.5 87ml/hr x 17hr Pertinent Medications vitamin C, vitamin D3, D5w, teragran, piperacillin, miralax, cancomycin Pertinent Labs 06/01 na 160, Cl 120, K 4.1, BUN 29, Cr 0.3, Glucose 242, A1c 5.1, Ca 8.4, Mg 2.8 Nutritional Hx/Data Height 5 ft 6 in Height (Calculated Centimeters) 167.6 Current Weight (lbs) 105 lb 8 oz Weight (Calculated Kilograms) 47.9 Weight (Calculated Grams) 96648.0 [place] Body Weight 142 % [place] Body Weight 94 Body Mass Index (BMI) 17.0 Weight Status Underweight GI Symptoms GI Symptoms None Last BM none Difficult in: None Usual diet at home Jevity 1.5 87ml/hr x 17hr Skin Integrity/Comment: decubitus ulceration to sacrum Estimated Nutritional Goals Calories/Kcals/Kg 25-30 Kcals Calculated [id number] based on IBW 65kg Protein g/k.2-1.4 Protein Calculated 78-91 consider respiratory failure and skin probelm Nutritional Problem 1. Problem Problem excessive intake from enteral feeding Etiology current TF regimen providing excessive calorie and protein than estimated nutritional needs Signs/Symptoms: current TF providing 114% of calorie needs and 110% of protein needs Malnutrition Alert Protein-Calorie Malnutrition N/A Is there a minimum of two criteria No selected? Query Text:Check all the applicable criteria. A minimum of two criteria are recommended for diagnosis of either severe or non-severe malnutrition. Intervention/Recommendation Comments 1. Recommend modify TF rate to 70ml/hr x 17hr to meet 100% of nutritional needs and avoid overfeeding. 2. Monitor TF rate, tolerance, wt weekly, skin integrity and labs 3. F/U as moderate risk in 3-5 days, 04/25-04/27 Expected Outcomes/Goals Expected Outcomes/Goals 1. Pt to meet 75-100% of nutritional needs via nutrition support with tolerance 2. 2. Wt stability, skin to remain intact, labs to approach WNL.
[2017-06-09] MEDS: Acetylcysteine 10% 10 ML VIAL HHN SCH ×3 (16:47→23:20)
--- NOTE | 2017-06-09 17:09 | Infectious Disease Prog Note ---
Infectious Disease Subjective - Review of Systems Service Date: 06/09/17 Subjective: No fever. Infectious Disease Objective - Results Result Diagrams: 06/09/17 06:30 06/09/17 06:30 Recent Labs: Laboratory Last Values WBC 12.7 Th/cmm (4.8-10.8) H 06/09/17 06:30 RBC 3.56 Mil/cmm (4.30-5.70) L 06/09/17 06:30 Hgb 11.1 gm/dL (12-16) L 06/09/17 06:30 Hct 32.3 % (41.0-60) L 06/09/17 06:30 MCV 90.6 fl (80-99) 06/09/17 06:30 MCH 31.1 pg (26.0-30.0) H 06/09/17 06:30 MCHC Differential 34.3 pg (28.0-36.0) 06/09/17 06:30 RDW 16.0 % (11.5-20.0) 06/09/17 06:30 Plt Count 197 Th/cmm (150-400) 06/09/17 06:30 MPV 9.2 fl 06/09/17 06:30 Neutrophils % 89.7 % (40.0-80.0) H 06/05/17 05:48 Band Neutrophils % 5 % (0-10) 06/07/17 06:30 Lymphocytes % 6.6 % (20.0-50.0) L 06/05/17 05:48 Monocytes % 3.6 % (2.0-10.0) 06/05/17 05:48 Eosinophils % 0.1 % (0.0-5.0) 06/05/17 05:48 Basophils % 0.0 % (0.0-2.0) 06/05/17 05:48 Neutrophils (Manual) 81 % (40-80) H 06/07/17 06:30 Lymphocytes 10 % (20-50) L 06/07/17 06:30 Monocytes 4 % (2-10) 06/07/17 06:30 Platelet Estimate ADEQUATE (NORMAL) 06/07/17 06:30 Specimen Source Arterial 06/07/17 13:05 Sample Site Right Radial 06/07/17 13:05 pH 7.52 (7.35-7.45) H 06/07/17 13:05 pCO2 45.0 mmHg (35.0-45.0) 06/07/17 13:05 pO2 95.0 mmHg (80.0-100.0) 06/07/17 13:05 HCO3 34.6 mEq/L (20.0-26.0) H 06/07/17 13:05 Base Excess 12.4 mEq/L (-3.0-3.0) H 06/07/17 13:05 O2 Saturation 98.0 % (92.0-100.0) 06/07/17 13:05 Endy Test YES 06/07/17 13:05 Vent Rate NA 06/07/17 13:05 Inspired O2 40 06/07/17 13:05 Tidal Volume NA 06/07/17 13:05 PEEP NA 06/07/17 13:05 Pressure (ins/psv/peep) NA 06/07/17 13:05 Critical Value E.BABCOCK 06/07/17 13:05 Sodium 138 mEq/L (136-145) 06/09/17 06:30 Potassium 4.4 mEq/L (3.5-5.1) 06/09/17 06:30 Chloride 101 mEq/L (98-107) 06/09/17 06:30 Carbon Dioxide 31.8 mEq/L (21.0-31.0) H 06/09/17 06:30 Anion Gap 9.6 (7.0-16.0) 06/09/17 06:30 BUN 27 mg/dL (7-25) H 06/09/17 06:30 Creatinine 0.3 mg/dL (0.7-1.3) L 06/09/17 06:30 Est GFR ( Amer) > 60.0 ml/min (>90) 06/09/17 06:30 Est GFR (Non-Af Amer) > 60.0 ml/min 06/09/17 06:30 BUN/Creatinine Ratio 90.0 06/09/17 06:30 Glucose 159 mg/dL (70-105) H 06/09/17 06:30 POC Glucose 213 MG/DL (70 - 105) H 06/01/17 06:53 Hemoglobin A1c % 5.1 % (4.0-6.0) 06/01/17 05:30 Whole Bld Lactic Acid 3.45 mmol/L (0.60-1.99) H* 06/03/17 06:45 Calcium 8.0 mg/dL (8.6-10.3) L 06/09/17 06:30 Magnesium 2.1 mg/dL (1.9-2.7) 06/07/17 06:30 Total Bilirubin 0.3 mg/dL (0.3-1.0) 06/04/17 06:45 AST 29 U/L (13-39) 06/04/17 06:45 ALT 41 U/L (7-52) 06/04/17 06:45 Alkaline Phosphatase 57 U/L (34-104) 06/04/17 06:45 Ammonia 64 umol/L (16-53) H 06/04/17 06:45 B-Natriuretic Peptide 129.0 pg/mL (5.0-100.0) H 06/04/17 06:45 Total Protein 4.3 gm/dL (6.0-8.3) L 06/04/17 06:45 Albumin 2.1 gm/dL (4.2-5.5) L 06/04/17 06:45 Globulin 2.2 gm/dL 06/04/17 06:45 Albumin/Globulin Ratio 1.0 (1.0-1.8) 06/04/17 06:45 TSH 0.72 uIU/ml (0.34-5.60) 06/01/17 05:30 Urine Source CATH 05/31/17 12:35 Urine Color YELLOW 05/31/17 12:35 Urine Clarity CLOUDY (CLEAR) 05/31/17 12:35 Urine pH 8.5 (4.6 - 8.0) 05/31/17 12:35 Ur Specific [place] 1.010 (1.005-1.030) 05/31/17 12:35 Urine Protein 30 mg/dL (NEGATIVE) H 05/31/17 12:35 Urine Glucose (UA) NEGATIVE mg/dL (NEGATIVE) 05/31/17 12:35 Urine Ketones NEGATIVE mg/dL (NEGATIVE) 05/31/17 12:35 Urine Blood MODERATE (NEGATIVE) H 05/31/17 12:35 Urine Nitrate NEGATIVE (NEGATIVE) 05/31/17 12:35 Urine Bilirubin NEGATIVE (NEGATIVE) 05/31/17 12:35 Urine Urobilinogen 0.2 E.U./dL (0.2 - 1.0) 05/31/17 12:35 Ur Leukocyte Esterase NEGATIVE (NEGATIVE) 05/31/17 12:35 Urine RBC >100 /hpf (0-5) H 05/31/17 12:35 Urine WBC 2-5 /hpf (0-5) H 05/31/17 12:35 Ur Epithelial Cells NONE SEEN /lpf (FEW) 05/31/17 12:35 Urine Bacteria NONE SEEN /hpf (NONE SEEN) 05/31/17 12:35 Stool Occult Blood NEGATIVE (NEGATIVE) 06/05/17 06:00 Gentamicin Peak 5.1 ug/ml (4.0-8.0) L 06/06/17 12:30 Gentamicin Trough 0.6 ug/ml (0.2-2.0) 06/06/17 08:00 Vancomycin Trough 10.7 ug/mL (10-20) 06/04/17 09:00 Influenza A (Rapid) NEG FOR INF A 06/05/17 08:00 Influenza B (Rapid) NEG FOR INF B 06/05/17 08:00 Blood Type O POSITIVE 06/02/17 11:40 Antibody Screen NEGATIVE 06/02/17 11:40 Crossmatch See Detail 06/02/17 11:40 - Physical Exam Vitals and I&O: Vital Signs Temp 96.2 F 06/09/17 13:00 Pulse 103 06/09/17 16:51 Resp 21 06/09/17 16:51 BP 103/51 06/09/17 13:00 Pulse Ox 96 06/09/17 16:51 Intake & Output 06/08/17 06/09/17 06/09/17 18:59 06:59 18:59 Intake Total 220 855.833 431.5 Output Total 1450 Balance -1230 855.833 431.5 Weight (lbs) 48.081 kg 47.718 kg Intake: Intake, IV Amount 100 855.833 431.5 D5-0.45NS 1,000 ml @ 50 655.833 327.5 mls/hr IV .Q20H [facility] Rx#: [id number] Gentamicin 160 mg In 104 Sodium Chloride 0.9% 100 ml @ 100 mls/hr IV Q24HR@ 0900 [facility] Rx#:[id number] Meropenem 1 gm In 100 200 Dextrose 5% 100 ml @ 100 mls/hr IV Q8HR [facility] Rx#: [id number] Other 120 Output: Urine 1450 Other: # Bowel Movements 1 Stool Characteristics Soft Soft Brown Brown Active Medications: Current Medications Acetaminophen (Tylenol 650mg Supp) 650 mg RC Q4HR PRN PRN Reason: FEVER >100.1 Stop: 07/30/17 13:39 Acetaminophen (Tylenol) 325 mg PO Q6H PRN PRN Reason: PAIN/FEVER Stop: 07/30/17 16:47 Last Admin: 06/06/17 17:13 Dose: 325 mg Acetylcysteine (Mucomyst 10%) 6 ml HHN Q4HRT [facility] Stop: 08/08/17 14:59 Last Admin: 06/09/17 16:47 Dose: 6 ml Albuterol Sulfate (Albuterol 2.5mg/3ml Neb Ud) 1.25 mg HHN Q4HRT [facility] Stop: 08/06/17 18:59 Last Admin: 06/09/17 16:47 Dose: 1.25 mg Ascorbic Acid (Vitamin C) 500 mg GT DAILY [facility] Stop: 07/31/17 08:59 Last Admin: 06/09/17 09:52 Dose: 500 mg Bisacodyl (Dulcolax 10 Mg Supp) 10 mg RC Q72HR PRN PRN Reason: Constipation Stop: 07/30/17 13:39 [place] Oil/[place] Balsam/Trypsin (Venelex) 1 appl TP BID [facility] Stop: 07/31/17 16:59 Last Admin: 06/09/17 09:52 Dose: 1 appl Cholecalciferol (Vitamin D3) 500 iu PO DAILY [facility] Stop: 07/31/17 08:59 Last Admin: 06/09/17 09:52 Dose: 500 iu Diltiazem HCl (Cardizem) 20 mg IVP Q4H PRN PRN Reason: HR Greater than 130 per min Stop: 07/30/17 13:40 Last Admin: 06/08/17 08:11 Dose: 20 mg Famotidine (Pepcid) 20 mg IVP Q12H [facility] Stop: 07/31/17 12:44 Last Admin: 06/09/17 12:33 Dose: 20 mg Guaifenesin (Robitussin) 200 mg PO Q4HR PRN PRN Reason: Cough or Congestion Stop: 07/30/17 13:41 Heparin Sodium (Porcine) (Heparin) 5,000 units SUBQ Q12H [facility] Stop: 07/31/17 20:59 Last Admin: 06/09/17 09:53 Dose: 5,000 units Dextrose (D5w) 1,000 mls @ 0 mls/hr IV .Q0M [facility] PRN Reason: Wide Open Stop: 07/31/17 16:46 Last Infusion: 06/01/17 19:08 Dose: Infused Norepinephrine Bitartrate 4 mg (/ Dextrose) 254 mls @ 30.48 mls/hr IV TITR PRN ; Protocol; 8 MCG/MIN PRN Reason: BP MAINTENANCE (PER PROTOCOL) Stop: 07/31/17 16:46 Last Titration: 06/03/17 00:00 Dose: 0 mcg/min, 0 mls/hr Meropenem 1 gm/ Dextrose 100 mls @ 100 mls/hr IV Q8HR [facility] Stop: 08/02/17 12:59 Last Admin: 06/09/17 12:32 Dose: 100 mls/hr Dextrose/Sodium Chloride (D5-0.45ns) 1,000 mls @ 50 mls/hr IV .Q20H [facility] Stop: 08/07/17 16:14 Last Admin: 06/09/17 12:33 Dose: 50 mls/hr Gentamicin Sulfate 160 mg/ (Sodium Chloride) 104 mls @ 100 mls/hr IV Q24HR@ 0900 [facility] Stop: 08/08/17 09:59 Last Infusion: 06/09/17 10:55 Dose: Infused Ipratropium [place] (Atrovent Neb 0.5mg/2.5ml) 0.5 mg HHN Q4HRT [facility] Stop: 08/06/17 18:59 Last Admin: 06/09/17 16:47 Dose: 0.5 mg Lactulose (Cephulac) 30 gm PO BID [facility] Stop: 08/03/17 16:59 Last Admin: 06/09/17 09:51 Dose: 30 gm Methylprednisolone Sodium Succinate (Solu-Medrol) 40 mg IVP Q8HR [facility] Stop: 07/30/17 20:59 Last Admin: 06/09/17 12:32 Dose: 40 mg Miscellaneous (Vte Chemical Prophylaxis Screen/ Admission) 1 ea [facility] PRN PRN PRN Reason: PROTOCOL Stop: 07/31/17 14:00 Miscellaneous (Probiotic Screen) 1 ea PRN PRN PRN Reason: PROTOCOL Stop: 07/31/17 16:02 Miscellaneous (Gentamicin Iv Per Pharmacy) 1 ea [facility] DAILY [facility] Stop: 08/09/17 08:59 Multivitamins/Vitamin C (Theragran) 1 tab GT DAILY [facility] Stop: 07/31/17 08:59 Last Admin: 06/09/17 09:52 Dose: 1 tab Ondansetron HCl (Zofran) 4 mg IV Q8H PRN PRN Reason: Nausea / Vomiting Stop: 07/30/17 13:41 Sodium Phosphate (Fleet Enema) 133 ml RC DAILY PRN PRN Reason: Constipation Stop: 07/30/17 13:39 General: no acute distress, well developed, well nourished HEENT: atraumatic, normocephalic, PERRLA Neck: supple, no thyromegaly Cardiovascular: S1S2, regular Lungs: clear to auscultation bilaterally, clear to percussion Abdomen: soft, no tender, no distended Extremities: no cyanosis, no clubbing, no edema Neurological: awake, alert, oriented Skin: intact - Procedures Procedures: Procedures Procedure Code Date INSERT EMERGENCY AIRWAY 26490 05/31/17 INSERTION OF ENDOTRACHEAL AIRWAY INTO [place], VIA OPENING [id number] 05/31/17 RESPIRATORY VENTILATION, GREATER THAN 96 CONSECUTIVE HOURS [id number] 05/31/17 VENT MGMT INPAT INIT DAY 55418 05/31/17 Infectious Disease Assmt/Plan - Problem List Patient Problems: All Active Problems COUGH AND CONGESTION (Acute) - Assessment Assessment: 1. Sepsis. 2. G Tube site ESBL + E coli. 3. Pneumonia. 4. Acute respiratory failure and went dependence. 5. Altered mental status unresponsiveness, likely secondary to toxic metabolic encephalopathy. 6. Cerebral palsy. - Plan Plan: Continue meropenem. Nutritional Asmnt/Malnutr-PDOC - Dietary Evaluation Malnutrition Findings (Please click <Entered> for more info): Nutritional Asmnt/Malnutrition Start: 06/01/17 17: 31 Text: Status: Complete Freq: Document 06/01/17 17:31 SHELBIE (Rec: 06/01/17 17:45 SHELBIE [id number]) Nutritional Asmnt/Malnutrition Patient General Information Nutritional Screening High Risk Consult Diagnosis renal failure, prespiratory failure r/o PNA Pertinent Medical Hx/Surgical Hx dementia, MR anemia, spastic quadriplegia, cerebral palsy, seizure, aspiration PNA, s/p respiratory failure, spsis, hyponatremia, gastroenteritis, PEG Subjective Information Consult received for Anibal 13 and pressure ulcer. Pt seen resting in bed at the time of visit, intubated, non-verbal noted. TF not running at this time. Current Diet Order/ Nutrition Support Isosource 1.5 87ml/hr x 17hr Pertinent Medications vitamin C, vitamin D3, D5w, teragran, piperacillin, miralax, cancomycin Pertinent Labs 06/01 na 160, Cl 120, K 4.1, BUN 29, Cr 0.3, Glucose 242, A1c 5.1, Ca 8.4, Mg 2.8 Nutritional Hx/Data Height 1.68 m Height (Calculated Centimeters) 167.6 Current Weight (lbs) 47.854 kg Weight (Calculated Kilograms) 47.9 Weight (Calculated Grams) 09693.0 [place] Body Weight 142 % [place] Body Weight 94 Body Mass Index (BMI) 17.0 Weight Status Underweight GI Symptoms GI Symptoms None Last BM none Difficult in: None Usual diet at home Jevity 1.5 87ml/hr x 17hr Skin Integrity/Comment: decubitus ulceration to sacrum Estimated Nutritional Goals Calories/Kcals/Kg 25-30 Kcals Calculated [id number] based on IBW 65kg Protein g/k.2-1.4 Protein Calculated 78-91 consider respiratory failure and skin probelm Nutritional Problem 1. Problem Problem excessive intake from enteral feeding Etiology current TF regimen providing excessive calorie and protein than estimated nutritional needs Signs/Symptoms: current TF providing 114% of calorie needs and 110% of protein needs Malnutrition Alert Protein-Calorie Malnutrition N/A Is there a minimum of two criteria No selected? Query Text:Check all the applicable criteria. A minimum of two criteria are recommended for diagnosis of either severe or non-severe malnutrition. Intervention/Recommendation Comments 1. Recommend modify TF rate to 70ml/hr x 17hr to meet 100% of nutritional needs and avoid overfeeding. 2. Monitor TF rate, tolerance, wt weekly, skin integrity and labs 3. F/U as moderate risk in 3-5 days, 04/25-04/27 Expected Outcomes/Goals Expected Outcomes/Goals 1. Pt to meet 75-100% of nutritional needs via nutrition support with tolerance 2. 2. Wt stability, skin to remain intact, labs to approach WNL.
[2017-06-10] MEDS: Albuterol Nebulizer 2.5mg/3mL HHN SCH ×6 (02:08→23:16)
[2017-06-10] MEDS: Acetylcysteine 10% 10 ML VIAL HHN SCH ×6 (02:08→23:40)
[2017-06-10] MEDS: Ipratropium Neb 0.5 mg/2.5 mL UD HHN SCH ×6 (02:08→23:16)
[2017-06-10] MEDS: methylPREDNISolone SS 40 mg Vial IVP SCH ×3 (05:39→20:40)
[2017-06-10 07:51] LABS: HEMATOCRIT 30.6 % (41.0-60); HEMOGLOBIN 10.4 gm/dL (12-16); LYMPHOCYTE ABSOLUTE 0.3 Th/cmm (1.5-3.0); MEAN CELL VOLUME 91.1 fl (80-99); MEAN PLATELET VOLUME 8.1 fl; MONOCYTE ABSOLUTE 0.1 Th/cmm (0.3-1.0); PLATELET COUNT 235 Th/cmm (150-400); RED BLOOD COUNT 3.36 Mil/cmm (4.30-5.70); RED CELL DISTRIBUTION WIDTH 16.3 % (11.5-20.0)
[2017-06-10 08:06] LABS: ALBUMIN 2.1 gm/dL (4.2-5.5); ALKALINE PHOSPHATASE 69 U/L (34-104); ANION GAP 10.4 (7.0-16.0); BILIRUBIN,TOTAL 0.6 mg/dL (0.3-1.0); BUN - UREA NITROGEN 29 mg/dL (7-25); CARBON DIOXIDE 30.9 mEq/L (21.0-31.0); CHLORIDE 105 mEq/L (98-107); CREATININE - SERUM 0.2 mg/dL (0.7-1.3); GFR AFRICAN-AMERICAN > 60.0 ml/min (>90); GFR NON AFRICAN-AMERICAN > 60.0 ml/min; GLUCOSE 136 mg/dL (70-105); POTASSIUM SERUM 3.3 mEq/L (3.5-5.1); SGOT 38 U/L (13-39); SGPT/ALT 90 U/L (7-52); SODIUM SERUM 143 mEq/L (136-145); TOTAL PROTEIN,SERUM 4.3 gm/dL (6.0-8.3)
[2017-06-10 08:36] LABS: WHITE BLOOD COUNT 15.4 Th/cmm (4.8-10.8)
[2017-06-10 08:37] LABS: INR 1.11 (0.5-1.4); PROTHROMBIN TIME (TEST) 11.6 SECONDS (9.5-11.5)
[2017-06-10] MEDS ORDERED: Gentamicin 160 MG in Sodium Chloride 0.9% 100 ML IV SCH (09:00)
[2017-06-10] MEDS: Venelex 60gm Tube TP SCH ×2 (09:05→17:15)
--- NOTE | 2017-06-10 09:23 | General Progress Note ---
Subjective - Review of Systems Service Date: 06/10/17 Events since last encounter: has rather shallow sacral DU but bone is very superficial CP, totally bedridden, incontinent suggest: diverting colostomy and excisional debridement will discuss with family Objective - Results Result Diagrams: 06/10/17 06:20 06/10/17 06:20 Recent Labs: Laboratory Last Values WBC 15.4 Th/cmm (4.8-10.8) H D 06/10/17 06:20 RBC 3.36 Mil/cmm (4.30-5.70) L 06/10/17 06:20 Hgb 10.4 gm/dL (12-16) L 06/10/17 06:20 Hct 30.6 % (41.0-60) L 06/10/17 06:20 MCV 91.1 fl (80-99) 06/10/17 06:20 MCH 31.0 pg (26.0-30.0) H 06/10/17 06:20 MCHC Differential 34.0 pg (28.0-36.0) 06/10/17 06:20 RDW 16.3 % (11.5-20.0) 06/10/17 06:20 Plt Count 235 Th/cmm (150-400) 06/10/17 06:20 MPV 8.1 fl 06/10/17 06:20 Neutrophils % 89.7 % (40.0-80.0) H 06/05/17 05:48 Band Neutrophils % 5 % (0-10) 06/07/17 06:30 Lymphocytes % 6.6 % (20.0-50.0) L 06/05/17 05:48 Monocytes % 3.6 % (2.0-10.0) 06/05/17 05:48 Eosinophils % 0.1 % (0.0-5.0) 06/05/17 05:48 Basophils % 0.0 % (0.0-2.0) 06/05/17 05:48 Neutrophils (Manual) 81 % (40-80) H 06/07/17 06:30 Lymphocytes 10 % (20-50) L 06/07/17 06:30 Monocytes 4 % (2-10) 06/07/17 06:30 Platelet Estimate ADEQUATE (NORMAL) 06/07/17 06:30 PT 11.6 SECONDS (9.5-11.5) H 06/10/17 06:20 INR 1.11 (0.5-1.4) 06/10/17 06:20 PTT (Actin FS) 22.8 SECONDS (26.0-38.0) L 06/10/17 06:20 Specimen Source Arterial 06/07/17 13:05 Sample Site Right Radial 06/07/17 13:05 pH 7.52 (7.35-7.45) H 06/07/17 13:05 pCO2 45.0 mmHg (35.0-45.0) 06/07/17 13:05 pO2 95.0 mmHg (80.0-100.0) 06/07/17 13:05 HCO3 34.6 mEq/L (20.0-26.0) H 06/07/17 13:05 Base Excess 12.4 mEq/L (-3.0-3.0) H 06/07/17 13:05 O2 Saturation 98.0 % (92.0-100.0) 06/07/17 13:05 Endy Test YES 06/07/17 13:05 Vent Rate NA 06/07/17 13:05 Inspired O2 40 06/07/17 13:05 Tidal Volume NA 06/07/17 13:05 PEEP NA 06/07/17 13:05 Pressure (ins/psv/peep) NA 06/07/17 13:05 Critical Value E.BABCOCK 06/07/17 13:05 Sodium 143 mEq/L (136-145) 06/10/17 06:20 Potassium 3.3 mEq/L (3.5-5.1) L 06/10/17 06:20 Chloride 105 mEq/L (98-107) 06/10/17 06:20 Carbon Dioxide 30.9 mEq/L (21.0-31.0) 06/10/17 06:20 Anion Gap 10.4 (7.0-16.0) 06/10/17 06:20 BUN 29 mg/dL (7-25) H 06/10/17 06:20 Creatinine 0.2 mg/dL (0.7-1.3) L 06/10/17 06:20 Est GFR ( Amer) > 60.0 ml/min (>90) 06/10/17 06:20 Est GFR (Non-Af Amer) > 60.0 ml/min 06/10/17 06:20 BUN/Creatinine Ratio 145.0 06/10/17 06:20 Glucose 136 mg/dL (70-105) H 06/10/17 06:20 POC Glucose 213 MG/DL (70 - 105) H 06/01/17 06:53 Hemoglobin A1c % 5.1 % (4.0-6.0) 06/01/17 05:30 Whole Bld Lactic Acid 3.45 mmol/L (0.60-1.99) H* 06/03/17 06:45 Calcium 8.0 mg/dL (8.6-10.3) L 06/10/17 06:20 Magnesium 2.1 mg/dL (1.9-2.7) 06/07/17 06:30 Total Bilirubin 0.6 mg/dL (0.3-1.0) 06/10/17 06:20 AST 38 U/L (13-39) 06/10/17 06:20 ALT 90 U/L (7-52) H 06/10/17 06:20 Alkaline Phosphatase 69 U/L (34-104) 06/10/17 06:20 Ammonia 64 umol/L (16-53) H 06/04/17 06:45 B-Natriuretic Peptide 129.0 pg/mL (5.0-100.0) H 06/04/17 06:45 Total Protein 4.3 gm/dL (6.0-8.3) L 06/10/17 06:20 Albumin 2.1 gm/dL (4.2-5.5) L 06/10/17 06:20 Globulin 2.2 gm/dL 06/10/17 06:20 Albumin/Globulin Ratio 1.0 (1.0-1.8) 06/10/17 06:20 TSH 0.72 uIU/ml (0.34-5.60) 06/01/17 05:30 Urine Source CATH 05/31/17 12:35 Urine Color YELLOW 05/31/17 12:35 Urine Clarity CLOUDY (CLEAR) 05/31/17 12:35 Urine pH 8.5 (4.6 - 8.0) 05/31/17 12:35 Ur Specific [place] 1.010 (1.005-1.030) 05/31/17 12:35 Urine Protein 30 mg/dL (NEGATIVE) H 05/31/17 12:35 Urine Glucose (UA) NEGATIVE mg/dL (NEGATIVE) 05/31/17 12:35 Urine Ketones NEGATIVE mg/dL (NEGATIVE) 05/31/17 12:35 Urine Blood MODERATE (NEGATIVE) H 05/31/17 12:35 Urine Nitrate NEGATIVE (NEGATIVE) 05/31/17 12:35 Urine Bilirubin NEGATIVE (NEGATIVE) 05/31/17 12:35 Urine Urobilinogen 0.2 E.U./dL (0.2 - 1.0) 05/31/17 12:35 Ur Leukocyte Esterase NEGATIVE (NEGATIVE) 05/31/17 12:35 Urine RBC >100 /hpf (0-5) H 05/31/17 12:35 Urine WBC 2-5 /hpf (0-5) H 05/31/17 12:35 Ur Epithelial Cells NONE SEEN /lpf (FEW) 05/31/17 12:35 Urine Bacteria NONE SEEN /hpf (NONE SEEN) 05/31/17 12:35 Stool Occult Blood NEGATIVE (NEGATIVE) 06/05/17 06:00 Gentamicin Peak 5.1 ug/ml (4.0-8.0) L 06/06/17 12:30 Gentamicin Trough 0.6 ug/ml (0.2-2.0) 06/06/17 08:00 Vancomycin Trough 10.7 ug/mL (10-20) 06/04/17 09:00 Influenza A (Rapid) NEG FOR INF A 06/05/17 08:00 Influenza B (Rapid) NEG FOR INF B 06/05/17 08:00 Blood Type O POSITIVE 06/02/17 11:40 Antibody Screen NEGATIVE 06/02/17 11:40 Crossmatch See Detail 06/02/17 11:40 - Physical Exam Vitals and I&O: Vital Signs Temp 97.8 F 06/10/17 04:00 Pulse 102 06/10/17 07:00 Resp 15 06/10/17 07:00 BP 112/67 06/10/17 07:00 Pulse Ox 97 06/10/17 07:00 Intake & Output 06/09/17 06/10/17 06/10/17 18:59 06:59 18:59 Intake Total 1316.5 1605.000 Output Total 1150 750 Balance 166.5 855.000 Weight (lbs) 48.676 kg 48.534 kg Intake: Intake, IV Amount 531.5 1105.000 D5-0.45NS 1,000 ml @ 50 327.5 905.000 mls/hr IV .Q20H REPLACED BY [facility] Rx#: [id number] Gentamicin 160 mg In 104 Sodium Chloride 0.9% 100 ml @ 100 mls/hr IV Q24HR@ 0900 REPLACED BY [facility] Rx#:[id number] Meropenem 1 gm In 100 200 Dextrose 5% 100 ml @ 100 mls/hr IV Q8HR REPLACED BY [facility] Rx#: [id number] Tube Feeding 435 500 Other 350 Output: Urine 1150 750 Other: # Bowel Movements 0 1 Active Medications: Current Medications Acetaminophen (Tylenol 650mg Supp) 650 mg RC Q4HR PRN PRN Reason: FEVER >100.1 Stop: 07/30/17 13:39 Acetaminophen (Tylenol) 325 mg PO Q6H PRN PRN Reason: PAIN/FEVER Stop: 07/30/17 16:47 Last Admin: 06/06/17 17:13 Dose: 325 mg Acetylcysteine (Mucomyst 10%) 6 ml HHN Q4HRT REPLACED BY [facility] Stop: 08/08/17 14:59 Last Admin: 06/10/17 08:29 Dose: 6 ml Albuterol Sulfate (Albuterol 2.5mg/3ml Neb Ud) 1.25 mg HHN Q4HRT REPLACED BY [facility] Stop: 08/06/17 18:59 Last Admin: 06/10/17 08:28 Dose: 1.25 mg Ascorbic Acid (Vitamin C) 500 mg GT DAILY REPLACED BY [facility] Stop: 07/31/17 08:59 Last Admin: 06/09/17 09:52 Dose: 500 mg Bisacodyl (Dulcolax 10 Mg Supp) 10 mg RC Q72HR PRN PRN Reason: Constipation Stop: 07/30/17 13:39 [place] Oil/[place] Balsam/Trypsin (Venelex) 1 appl TP BID REPLACED BY [facility] Stop: 07/31/17 16:59 Last Admin: 06/09/17 17:35 Dose: 1 appl Cholecalciferol (Vitamin D3) 500 iu PO DAILY REPLACED BY [facility] Stop: 07/31/17 08:59 Last Admin: 06/09/17 09:52 Dose: 500 iu Diltiazem HCl (Cardizem) 20 mg IVP Q4H PRN PRN Reason: HR Greater than 130 per min Stop: 07/30/17 13:40 Last Admin: 06/08/17 08:11 Dose: 20 mg Famotidine (Pepcid) 20 mg IVP Q12H REPLACED BY [facility] Stop: 07/31/17 12:44 Last Admin: 06/10/17 00:57 Dose: 20 mg Guaifenesin (Robitussin) 200 mg PO Q4HR PRN PRN Reason: Cough or Congestion Stop: 07/30/17 13:41 Heparin Sodium (Porcine) (Heparin) 5,000 units SUBQ Q12H REPLACED BY [facility] Stop: 07/31/17 20:59 Last Admin: 06/09/17 20:55 Dose: 5,000 units Dextrose (D5w) 1,000 mls @ 0 mls/hr IV .Q0M FERNANDO PRN Reason: Wide Open Stop: 07/31/17 16:46 Last Infusion: 06/01/17 19:08 Dose: Infused Norepinephrine Bitartrate 4 mg (/ Dextrose) 254 mls @ 30.48 mls/hr IV TITR PRN ; Protocol; 8 MCG/MIN PRN Reason: BP MAINTENANCE (PER PROTOCOL) Stop: 07/31/17 16:46 Last Titration: 06/03/17 00:00 Dose: 0 mcg/min, 0 mls/hr Meropenem 1 gm/ Dextrose 100 mls @ 100 mls/hr IV Q8HR REPLACED BY [facility] Stop: 08/02/17 12:59 Last Infusion: 06/10/17 06:28 Dose: Infused Dextrose/Sodium Chloride (D5-0.45ns) 1,000 mls @ 50 mls/hr IV .Q20H REPLACED BY [facility] Stop: 08/07/17 16:14 Last Infusion: 06/10/17 06:39 Dose: 50 mls/hr Gentamicin Sulfate 160 mg/ (Sodium Chloride) 104 mls @ 100 mls/hr IV Q24HR@ 0900 REPLACED BY [facility] Stop: 08/08/17 09:59 Last Infusion: 06/09/17 10:55 Dose: Infused Ipratropium [place] (Atrovent Neb 0.5mg/2.5ml) 0.5 mg HHN Q4HRT REPLACED BY [facility] Stop: 08/06/17 18:59 Last Admin: 06/10/17 08:28 Dose: 0.5 mg Lactulose (Cephulac) 30 gm PO BID FERNANDO Stop: 08/03/17 16:59 Last Admin: 06/09/17 17:35 Dose: 30 gm Methylprednisolone Sodium Succinate (Solu-Medrol) 40 mg IVP Q8HR FERNANDO Stop: 07/30/17 20:59 Last Admin: 06/10/17 05:39 Dose: 40 mg Miscellaneous (Vte Chemical Prophylaxis Screen/ Admission) 1 ea PRN PRN PRN Reason: PROTOCOL Stop: 07/31/17 14:00 Miscellaneous (Probiotic Screen) 1 ea PRN PRN PRN Reason: PROTOCOL Stop: 07/31/17 16:02 Miscellaneous (Gentamicin Iv Per Pharmacy) 1 ea MC DAILY FERNANDO Stop: 08/09/17 08:59 Multivitamins/Vitamin C (Theragran) 1 tab GT DAILY REPLACED BY [facility] Stop: 07/31/17 08:59 Last Admin: 06/09/17 09:52 Dose: 1 tab Ondansetron HCl (Zofran) 4 mg IV Q8H PRN PRN Reason: Nausea / Vomiting Stop: 07/30/17 13:41 Sodium Phosphate (Fleet Enema) 133 ml RC DAILY PRN PRN Reason: Constipation Stop: 07/30/17 13:39 - Procedures Procedures: Procedures Procedure Code Date INSERT EMERGENCY AIRWAY 67652 05/31/17 INSERTION OF ENDOTRACHEAL AIRWAY INTO [place]HE[place], VIA OPENING [id number] 05/31/17 RESPIRATORY VENTILATION, GREATER THAN 96 CONSECUTIVE HOURS [id number] 05/31/17 VENT MGMT INPAT INIT DAY 70195 05/31/17 Assessment/Plan - Problem List Patient Problems: All Active Problems COUGH AND CONGESTION (Acute) Nutritional Asmnt/Malnutr-PDOC - Dietary Evaluation Malnutrition Findings (Please click <Entered> for more info): Nutritional Asmnt/Malnutrition Start: 06/01/17 17: 31 Text: Status: Complete Freq: Document 06/01/17 17:31 SHELBIE (Rec: 06/01/17 17:45 SHELBIE [email or web address]) Nutritional Asmnt/Malnutrition Patient General Information Nutritional Screening High Risk Consult Diagnosis renal failure, prespiratory failure r/o PNA Pertinent Medical Hx/Surgical Hx dementia, MR anemia, spastic quadriplegia, cerebral palsy, seizure, aspiration PNA, s/p respiratory failure, spsis, hyponatremia, gastroenteritis, PEG Subjective Information Consult received for Anibal 13 and pressure ulcer. Pt seen resting in bed at the time of visit, intubated, non-verbal noted. TF not running at this time. Current Diet Order/ Nutrition Support Isosource 1.5 87ml/hr x 17hr Pertinent Medications vitamin C, vitamin D3, D5w, teragran, piperacillin, miralax, cancomycin Pertinent Labs 06/01 na 160, Cl 120, K 4.1, BUN 29, Cr 0.3, Glucose 242, A1c 5.1, Ca 8.4, Mg 2.8 Nutritional Hx/Data Height 1.68 m Height (Calculated Centimeters) 167.6 Current Weight (lbs) 47.854 kg Weight (Calculated Kilograms) 47.9 Weight (Calculated Grams) 71579.0 [place] Body Weight 142 % [place] Body Weight 94 Body Mass Index (BMI) 17.0 Weight Status Underweight GI Symptoms GI Symptoms None Last BM none Difficult in: None Usual diet at home Jevity 1.5 87ml/hr x 17hr Skin Integrity/Comment: decubitus ulceration to sacrum Estimated Nutritional Goals Calories/Kcals/Kg 25-30 Kcals Calculated [id number] based on IBW 65kg Protein g/k.2-1.4 Protein Calculated 78-91 consider respiratory failure and skin probelm Nutritional Problem 1. Problem Problem excessive intake from enteral feeding Etiology current TF regimen providing excessive calorie and protein than estimated nutritional needs Signs/Symptoms: current TF providing 114% of calorie needs and 110% of protein needs Malnutrition Alert Protein-Calorie Malnutrition N/A Is there a minimum of two criteria No selected? Query Text:Check all the applicable criteria. A minimum of two criteria are recommended for diagnosis of either severe or non-severe malnutrition. Intervention/Recommendation Comments 1. Recommend modify TF rate to 70ml/hr x 17hr to meet 100% of nutritional needs and avoid overfeeding. 2. Monitor TF rate, tolerance, wt weekly, skin integrity and labs 3. F/U as moderate risk in 3-5 days, 04/25-04/27 Expected Outcomes/Goals Expected Outcomes/Goals 1. Pt to meet 75-100% of nutritional needs via nutrition support with tolerance 2. 2. Wt stability, skin to remain intact, labs to approach WNL.
[2017-06-10] MEDS: Gentamicin 160 MG in Sodium Chloride 0.9% 100 ML IV SCH (09:48)
--- NOTE | 2017-06-10 09:48 | Diagnostic Imaging Report ---
Portable chest x-ray HISTORY: Shortness of breath Compared with the prior exam of June 08, 2017, there is a poor inspiration the results in accentuation of the lower interstitial lung markings. Questionable faint infiltrate in the right lower lobe. Follow-up recommended. IMPRESSION: 1. Questionable faint infiltrate right lower lobe. Follow-up recommended.
[2017-06-10] MEDS: Multivitamin Tab GT SCH (09:49)
[2017-06-10] MEDS: Lactulose 10 Gm/15 mL 30mL UDC PO SCH ×2 (09:49→18:16)
[2017-06-10] MEDS: D5-0.45NS 1,000 ML IV SCH (09:50)
[2017-06-10] MEDS ORDERED: Potassium Chloride 20 mEq ER Tab PO ONE (13:23)
--- NOTE | 2017-06-10 13:24 | Internal Medicine Prog Note ---
Internal Medicine Subjective - Subjective Service Date: 06/10/17 Patient seen and examined:: with staff Patient is:: awake, non-verbal, non-interactive, in bed, other Patient Complaints of:: congestion Per staff patient has:: tolerating meds Internal Medicine Objective - Results Result Diagrams: 06/10/17 06:20 06/10/17 06:20 Recent Labs: Laboratory Last Values WBC 15.4 Th/cmm (4.8-10.8) H D 06/10/17 06:20 RBC 3.36 Mil/cmm (4.30-5.70) L 06/10/17 06:20 Hgb 10.4 gm/dL (12-16) L 06/10/17 06:20 Hct 30.6 % (41.0-60) L 06/10/17 06:20 MCV 91.1 fl (80-99) 06/10/17 06:20 MCH 31.0 pg (26.0-30.0) H 06/10/17 06:20 MCHC Differential 34.0 pg (28.0-36.0) 06/10/17 06:20 RDW 16.3 % (11.5-20.0) 06/10/17 06:20 Plt Count 235 Th/cmm (150-400) 06/10/17 06:20 MPV 8.1 fl 06/10/17 06:20 Neutrophils % 89.7 % (40.0-80.0) H 06/05/17 05:48 Band Neutrophils % 5 % (0-10) 06/07/17 06:30 Lymphocytes % 6.6 % (20.0-50.0) L 06/05/17 05:48 Monocytes % 3.6 % (2.0-10.0) 06/05/17 05:48 Eosinophils % 0.1 % (0.0-5.0) 06/05/17 05:48 Basophils % 0.0 % (0.0-2.0) 06/05/17 05:48 Neutrophils (Manual) 81 % (40-80) H 06/07/17 06:30 Lymphocytes 10 % (20-50) L 06/07/17 06:30 Monocytes 4 % (2-10) 06/07/17 06:30 Platelet Estimate ADEQUATE (NORMAL) 06/07/17 06:30 PT 11.6 SECONDS (9.5-11.5) H 06/10/17 06:20 INR 1.11 (0.5-1.4) 06/10/17 06:20 PTT (Actin FS) 22.8 SECONDS (26.0-38.0) L 06/10/17 06:20 Specimen Source Arterial 06/07/17 13:05 Sample Site Right Radial 06/07/17 13:05 pH 7.52 (7.35-7.45) H 06/07/17 13:05 pCO2 45.0 mmHg (35.0-45.0) 06/07/17 13:05 pO2 95.0 mmHg (80.0-100.0) 06/07/17 13:05 HCO3 34.6 mEq/L (20.0-26.0) H 06/07/17 13:05 Base Excess 12.4 mEq/L (-3.0-3.0) H 06/07/17 13:05 O2 Saturation 98.0 % (92.0-100.0) 06/07/17 13:05 Endy Test YES 06/07/17 13:05 Vent Rate NA 06/07/17 13:05 Inspired O2 40 06/07/17 13:05 Tidal Volume NA 06/07/17 13:05 PEEP NA 06/07/17 13:05 Pressure (ins/psv/peep) NA 06/07/17 13:05 Critical Value E.BABCOCK 06/07/17 13:05 Sodium 143 mEq/L (136-145) 06/10/17 06:20 Potassium 3.3 mEq/L (3.5-5.1) L 06/10/17 06:20 Chloride 105 mEq/L (98-107) 06/10/17 06:20 Carbon Dioxide 30.9 mEq/L (21.0-31.0) 06/10/17 06:20 Anion Gap 10.4 (7.0-16.0) 06/10/17 06:20 BUN 29 mg/dL (7-25) H 06/10/17 06:20 Creatinine 0.2 mg/dL (0.7-1.3) L 06/10/17 06:20 Est GFR ( Amer) > 60.0 ml/min (>90) 06/10/17 06:20 Est GFR (Non-Af Amer) > 60.0 ml/min 06/10/17 06:20 BUN/Creatinine Ratio 145.0 06/10/17 06:20 Glucose 136 mg/dL (70-105) H 06/10/17 06:20 POC Glucose 213 MG/DL (70 - 105) H 06/01/17 06:53 Hemoglobin A1c % 5.1 % (4.0-6.0) 06/01/17 05:30 Whole Bld Lactic Acid 3.45 mmol/L (0.60-1.99) H* 06/03/17 06:45 Calcium 8.0 mg/dL (8.6-10.3) L 06/10/17 06:20 Magnesium 2.1 mg/dL (1.9-2.7) 06/07/17 06:30 Total Bilirubin 0.6 mg/dL (0.3-1.0) 06/10/17 06:20 AST 38 U/L (13-39) 06/10/17 06:20 ALT 90 U/L (7-52) H 06/10/17 06:20 Alkaline Phosphatase 69 U/L (34-104) 06/10/17 06:20 Ammonia 64 umol/L (16-53) H 06/04/17 06:45 B-Natriuretic Peptide 129.0 pg/mL (5.0-100.0) H 06/04/17 06:45 Total Protein 4.3 gm/dL (6.0-8.3) L 06/10/17 06:20 Albumin 2.1 gm/dL (4.2-5.5) L 06/10/17 06:20 Globulin 2.2 gm/dL 06/10/17 06:20 Albumin/Globulin Ratio 1.0 (1.0-1.8) 06/10/17 06:20 TSH 0.72 uIU/ml (0.34-5.60) 06/01/17 05:30 Urine Source CATH 05/31/17 12:35 Urine Color YELLOW 05/31/17 12:35 Urine Clarity CLOUDY (CLEAR) 05/31/17 12:35 Urine pH 8.5 (4.6 - 8.0) 05/31/17 12:35 Ur Specific [place] 1.010 (1.005-1.030) 05/31/17 12:35 Urine Protein 30 mg/dL (NEGATIVE) H 05/31/17 12:35 Urine Glucose (UA) NEGATIVE mg/dL (NEGATIVE) 05/31/17 12:35 Urine Ketones NEGATIVE mg/dL (NEGATIVE) 05/31/17 12:35 Urine Blood MODERATE (NEGATIVE) H 05/31/17 12:35 Urine Nitrate NEGATIVE (NEGATIVE) 05/31/17 12:35 Urine Bilirubin NEGATIVE (NEGATIVE) 05/31/17 12:35 Urine Urobilinogen 0.2 E.U./dL (0.2 - 1.0) 05/31/17 12:35 Ur Leukocyte Esterase NEGATIVE (NEGATIVE) 05/31/17 12:35 Urine RBC >100 /hpf (0-5) H 05/31/17 12:35 Urine WBC 2-5 /hpf (0-5) H 05/31/17 12:35 Ur Epithelial Cells NONE SEEN /lpf (FEW) 05/31/17 12:35 Urine Bacteria NONE SEEN /hpf (NONE SEEN) 05/31/17 12:35 Stool Occult Blood NEGATIVE (NEGATIVE) 06/05/17 06:00 Gentamicin Peak 5.1 ug/ml (4.0-8.0) L 06/06/17 12:30 Gentamicin Trough 0.6 ug/ml (0.2-2.0) 06/06/17 08:00 Vancomycin Trough 10.7 ug/mL (10-20) 06/04/17 09:00 Influenza A (Rapid) NEG FOR INF A 06/05/17 08:00 Influenza B (Rapid) NEG FOR INF B 06/05/17 08:00 Blood Type O POSITIVE 06/02/17 11:40 Antibody Screen NEGATIVE 06/02/17 11:40 Crossmatch See Detail 06/02/17 11:40 - Physical Exam Vitals and I&O: Vital Signs Temp 97.1 F 06/10/17 13:00 Pulse 124 06/10/17 13:00 Resp 21 06/10/17 13:00 BP 101/58 06/10/17 13:00 Pulse Ox 96 06/10/17 13:00 Intake & Output 06/09/17 06/10/17 06/10/17 18:59 06:59 18:59 Intake Total 1316.5 1605.000 199 Output Total 1150 750 Balance 166.5 855.000 199 Weight (lbs) 107 lb 5 oz 107 lb Intake: Intake, IV Amount 531.5 1105.000 199 D5-0.45NS 1,000 ml @ 50 327.5 905.000 95 mls/hr IV .Q20H [facility] Rx#: [id number] Gentamicin 160 mg In 104 104 Sodium Chloride 0.9% 100 ml @ 100 mls/hr IV Q24HR@ 0900 [facility] Rx#:[id number] Meropenem 1 gm In 100 200 Dextrose 5% 100 ml @ 100 mls/hr IV Q8HR [facility] Rx#: [id number] Tube Feeding 435 500 Other 350 Output: Urine 1150 750 Other: # Bowel Movements 0 1 Stool Characteristics Soft Liquid Brown Active Medications: Current Medications Acetaminophen (Tylenol 650mg Supp) 650 mg RC Q4HR PRN PRN Reason: FEVER >100.1 Stop: 07/30/17 13:39 Acetaminophen (Tylenol) 325 mg PO Q6H PRN PRN Reason: PAIN/FEVER Stop: 07/30/17 16:47 Last Admin: 06/06/17 17:13 Dose: 325 mg Acetylcysteine (Mucomyst 10%) 6 ml HHN Q4HRT [facility] Stop: 08/08/17 14:59 Last Admin: 06/10/17 12:22 Dose: 6 ml Albuterol Sulfate (Albuterol 2.5mg/3ml Neb Ud) 1.25 mg HHN Q4HRT [facility] Stop: 08/06/17 18:59 Last Admin: 06/10/17 12:21 Dose: 1.25 mg Ascorbic Acid (Vitamin C) 500 mg GT DAILY [facility] Stop: 07/31/17 08:59 Last Admin: 06/10/17 09:49 Dose: 500 mg Bisacodyl (Dulcolax 10 Mg Supp) 10 mg RC Q72HR PRN PRN Reason: Constipation Stop: 07/30/17 13:39 [place] Oil/[place] Balsam/Trypsin (Venelex) 1 appl TP BID [facility] Stop: 07/31/17 16:59 Last Admin: 06/10/17 09:05 Dose: 1 appl Cholecalciferol (Vitamin D3) 500 iu PO DAILY [facility] Stop: 07/31/17 08:59 Last Admin: 06/10/17 09:49 Dose: 500 iu Diltiazem HCl (Cardizem) 20 mg IVP Q4H PRN PRN Reason: HR Greater than 130 per min Stop: 07/30/17 13:40 Last Admin: 06/08/17 08:11 Dose: 20 mg Famotidine (Pepcid) 20 mg IVP Q12H [facility] Stop: 07/31/17 12:44 Last Admin: 06/10/17 12:06 Dose: 20 mg Guaifenesin (Robitussin) 200 mg PO Q4HR PRN PRN Reason: Cough or Congestion Stop: 07/30/17 13:41 Heparin Sodium (Porcine) (Heparin) 5,000 units SUBQ Q12H [facility] Stop: 07/31/17 20:59 Last Admin: 06/10/17 09:49 Dose: 5,000 units Dextrose (D5w) 1,000 mls @ 0 mls/hr IV .Q0M [facility] PRN Reason: Wide Open Stop: 07/31/17 16:46 Last Infusion: 06/01/17 19:08 Dose: Infused Norepinephrine Bitartrate 4 mg (/ Dextrose) 254 mls @ 30.48 mls/hr IV TITR PRN ; Protocol; 8 MCG/MIN PRN Reason: BP MAINTENANCE (PER PROTOCOL) Stop: 07/31/17 16:46 Last Titration: 06/03/17 00:00 Dose: 0 mcg/min, 0 mls/hr Meropenem 1 gm/ Dextrose 100 mls @ 100 mls/hr IV Q8HR [facility] Stop: 08/02/17 12:59 Last Admin: 06/10/17 12:04 Dose: 100 mls/hr Dextrose/Sodium Chloride (D5-0.45ns) 1,000 mls @ 50 mls/hr IV .Q20H [facility] Stop: 08/07/17 16:14 Last Admin: 06/10/17 09:50 Dose: 50 mls/hr Gentamicin Sulfate 160 mg/ (Sodium Chloride) 104 mls @ 100 mls/hr IV Q24HR@ 0900 [facility] Stop: 08/08/17 09:59 Last Infusion: 06/10/17 10:55 Dose: Infused Ipratropium [place] (Atrovent Neb 0.5mg/2.5ml) 0.5 mg HHN Q4HRT [facility] Stop: 08/06/17 18:59 Last Admin: 06/10/17 12:21 Dose: 0.5 mg Lactulose (Cephulac) 30 gm PO BID [facility] Stop: 08/03/17 16:59 Last Admin: 06/10/17 09:49 Dose: 30 gm Methylprednisolone Sodium Succinate (Solu-Medrol) 40 mg IVP Q8HR [facility] Stop: 07/30/17 20:59 Last Admin: 06/10/17 12:06 Dose: 40 mg Miscellaneous (Vte Chemical Prophylaxis Screen/ Admission) 1 [facility] PRN PRN PRN Reason: PROTOCOL Stop: 07/31/17 14:00 Miscellaneous (Probiotic Screen) 1 [facility] PRN PRN PRN Reason: PROTOCOL Stop: 07/31/17 16:02 Miscellaneous (Gentamicin Iv Per Pharmacy) 1 ea [facility] DAILY [facility] Stop: 08/09/17 08:59 Multivitamins/Vitamin C (Theragran) 1 tab GT DAILY [facility] Stop: 07/31/17 08:59 Last Admin: 06/10/17 09:49 Dose: 1 tab Ondansetron HCl (Zofran) 4 mg IV Q8H PRN PRN Reason: Nausea / Vomiting Stop: 07/30/17 13:41 Sodium Phosphate (Fleet Enema) 133 ml RC DAILY PRN PRN Reason: Constipation Stop: 07/30/17 13:39 General: weak HEENT: NC/AT, PERRLA Neck: No LAD Lungs: ronchi Cardiovascular: RRR, Normal S1, Normal S2, without murmur Abdomen: soft, non-tender, non-distended, +GT, positive bowel sound Extremities: excoriation, ecchymosis, contracture, deformity, atrophy Neurological: unable to follow command - Procedures Procedures: Procedures Procedure Code Date INSERT EMERGENCY AIRWAY 17669 05/31/17 INSERTION OF ENDOTRACHEAL AIRWAY INTO [place], VIA OPENING [id number] 05/31/17 RESPIRATORY VENTILATION, GREATER THAN 96 CONSECUTIVE HOURS [id number] 05/31/17 VENT MGMT INPAT INIT DAY [id number] 05/31/17 Internal Medicine Assmt/Plan - Assessment Assessment: S/p cardiopulmonary arrest, now intubated on vent lactic acidosis Acute Respiratory Failure Sepsis PNA leukocytosis hypokalemia acute renal insufficiency spastic quadriplegia seizures - Plan Plan: replace k+ wound debridement and diverting colostomy to be done tmw may need LTAC eval aspiration precautions inhalation treatments empiric ivantibiotics pulmo follow up continue current plan of care Nutritional Asmnt/Malnutr-PDOC - Dietary Evaluation Malnutrition Findings (Please click <Entered> for more info): Nutritional Asmnt/Malnutrition Start: 06/01/17 17: 31 Text: Status: Complete Freq: Document 06/01/17 17:31 LCJOSELING (Rec: 06/01/17 17:45 LCJOSELING [id number]) Nutritional Asmnt/Malnutrition Patient General Information Nutritional Screening High Risk Consult Diagnosis renal failure, prespiratory failure r/o PNA Pertinent Medical Hx/Surgical Hx dementia, MR anemia, spastic quadriplegia, cerebral palsy, seizure, aspiration PNA, s/p respiratory failure, spsis, hyponatremia, gastroenteritis, PEG Subjective Information Consult received for [place] 13 and pressure ulcer. Pt seen resting in bed at the time of visit, intubated, non-verbal noted. TF not running at this time. Current Diet Order/ Nutrition Support Isosource 1.5 87ml/hr x 17hr Pertinent Medications vitamin C, vitamin D3, D5w, teragran, piperacillin, miralax, cancomycin Pertinent Labs 06/01 na 160, Cl 120, K 4.1, BUN 29, Cr 0.3, Glucose 242, A1c 5.1, Ca 8.4, Mg 2.8 Nutritional Hx/Data Height 5 ft 6 in Height (Calculated Centimeters) 167.6 Current Weight (lbs) 105 lb 8 oz Weight (Calculated Kilograms) 47.9 Weight (Calculated Grams) 49159.0 [place] Body Weight 142 % [place] Body Weight 94 Body Mass Index (BMI) 17.0 Weight Status Underweight GI Symptoms GI Symptoms None Last BM none Difficult in: None Usual diet at home Jevity 1.5 87ml/hr x 17hr Skin Integrity/Comment: decubitus ulceration to sacrum Estimated Nutritional Goals Calories/Kcals/Kg 25-30 Kcals Calculated 4031-3912 based on IBW 65kg Protein g/k.2-1.4 Protein Calculated 78-91 consider respiratory failure and skin probelm Nutritional Problem 1. Problem Problem excessive intake from enteral feeding Etiology current TF regimen providing excessive calorie and protein than estimated nutritional needs Signs/Symptoms: current TF providing 114% of calorie needs and 110% of protein needs Malnutrition Alert Protein-Calorie Malnutrition N/A Is there a minimum of two criteria No selected? Query Text:Check all the applicable criteria. A minimum of two criteria are recommended for diagnosis of either severe or non-severe malnutrition. Intervention/Recommendation Comments 1. Recommend modify TF rate to 70ml/hr x 17hr to meet 100% of nutritional needs and avoid overfeeding. 2. Monitor TF rate, tolerance, wt weekly, skin integrity and labs 3. F/U as moderate risk in 3-5 days, 04/25-04/27 Expected Outcomes/Goals Expected Outcomes/Goals 1. Pt to meet 75-100% of nutritional needs via nutrition support with tolerance 2. 2. Wt stability, skin to remain intact, labs to approach WNL.
[2017-06-11] MEDS: Diltiazem 5 mg/mL 5mL Vial IVP PRN ×2 (00:48→22:14)
--- NOTE | 2017-06-11 03:25 | Infectious Disease Prog Note ---
Infectious Disease Subjective - Review of Systems Service Date: 06/10/17 Subjective: No fever. And had the congestion throat. became hypoxic. He was put on 100% nonrebreather mask. Infectious Disease Objective - Results Result Diagrams: 06/11/17 06:10 06/11/17 06:10 Recent Labs: Laboratory Last Values WBC 15.4 Th/cmm (4.8-10.8) H D 06/10/17 06:20 RBC 3.36 Mil/cmm (4.30-5.70) L 06/10/17 06:20 Hgb 10.4 gm/dL (12-16) L 06/10/17 06:20 Hct 30.6 % (41.0-60) L 06/10/17 06:20 MCV 91.1 fl (80-99) 06/10/17 06:20 MCH 31.0 pg (26.0-30.0) H 06/10/17 06:20 MCHC Differential 34.0 pg (28.0-36.0) 06/10/17 06:20 RDW 16.3 % (11.5-20.0) 06/10/17 06:20 Plt Count 235 Th/cmm (150-400) 06/10/17 06:20 MPV 8.1 fl 06/10/17 06:20 Neutrophils % 89.7 % (40.0-80.0) H 06/05/17 05:48 Band Neutrophils % 5 % (0-10) 06/07/17 06:30 Lymphocytes % 6.6 % (20.0-50.0) L 06/05/17 05:48 Monocytes % 3.6 % (2.0-10.0) 06/05/17 05:48 Eosinophils % 0.1 % (0.0-5.0) 06/05/17 05:48 Basophils % 0.0 % (0.0-2.0) 06/05/17 05:48 Neutrophils (Manual) 81 % (40-80) H 06/07/17 06:30 Lymphocytes 10 % (20-50) L 06/07/17 06:30 Monocytes 4 % (2-10) 06/07/17 06:30 Platelet Estimate ADEQUATE (NORMAL) 06/07/17 06:30 PT 11.6 SECONDS (9.5-11.5) H 06/10/17 06:20 INR 1.11 (0.5-1.4) 06/10/17 06:20 PTT (Actin FS) 22.8 SECONDS (26.0-38.0) L 06/10/17 06:20 Specimen Source Arterial 06/07/17 13:05 Sample Site Right Radial 06/07/17 13:05 pH 7.52 (7.35-7.45) H 06/07/17 13:05 pCO2 45.0 mmHg (35.0-45.0) 06/07/17 13:05 pO2 95.0 mmHg (80.0-100.0) 06/07/17 13:05 HCO3 34.6 mEq/L (20.0-26.0) H 06/07/17 13:05 Base Excess 12.4 mEq/L (-3.0-3.0) H 06/07/17 13:05 O2 Saturation 98.0 % (92.0-100.0) 06/07/17 13:05 Endy Test YES 06/07/17 13:05 Vent Rate NA 06/07/17 13:05 Inspired O2 40 06/07/17 13:05 Tidal Volume NA 06/07/17 13:05 PEEP NA 06/07/17 13:05 Pressure (ins/psv/peep) NA 06/07/17 13:05 Critical Value E.BABCOCK 06/07/17 13:05 Sodium 143 mEq/L (136-145) 06/10/17 06:20 Potassium 3.3 mEq/L (3.5-5.1) L 06/10/17 06:20 Chloride 105 mEq/L (98-107) 06/10/17 06:20 Carbon Dioxide 30.9 mEq/L (21.0-31.0) 06/10/17 06:20 Anion Gap 10.4 (7.0-16.0) 06/10/17 06:20 BUN 29 mg/dL (7-25) H 06/10/17 06:20 Creatinine 0.2 mg/dL (0.7-1.3) L 06/10/17 06:20 Est GFR ( Amer) > 60.0 ml/min (>90) 06/10/17 06:20 Est GFR (Non-Af Amer) > 60.0 ml/min 06/10/17 06:20 BUN/Creatinine Ratio 145.0 06/10/17 06:20 Glucose 136 mg/dL (70-105) H 06/10/17 06:20 POC Glucose 213 MG/DL (70 - 105) H 06/01/17 06:53 Hemoglobin A1c % 5.1 % (4.0-6.0) 06/01/17 05:30 Whole Bld Lactic Acid 3.45 mmol/L (0.60-1.99) H* 06/03/17 06:45 Calcium 8.0 mg/dL (8.6-10.3) L 06/10/17 06:20 Magnesium 2.1 mg/dL (1.9-2.7) 06/07/17 06:30 Total Bilirubin 0.6 mg/dL (0.3-1.0) 06/10/17 06:20 AST 38 U/L (13-39) 06/10/17 06:20 ALT 90 U/L (7-52) H 06/10/17 06:20 Alkaline Phosphatase 69 U/L (34-104) 06/10/17 06:20 Ammonia 64 umol/L (16-53) H 06/04/17 06:45 B-Natriuretic Peptide 129.0 pg/mL (5.0-100.0) H 06/04/17 06:45 Total Protein 4.3 gm/dL (6.0-8.3) L 06/10/17 06:20 Albumin 2.1 gm/dL (4.2-5.5) L 06/10/17 06:20 Globulin 2.2 gm/dL 06/10/17 06:20 Albumin/Globulin Ratio 1.0 (1.0-1.8) 06/10/17 06:20 TSH 0.72 uIU/ml (0.34-5.60) 06/01/17 05:30 Urine Source CATH 05/31/17 12:35 Urine Color YELLOW 05/31/17 12:35 Urine Clarity CLOUDY (CLEAR) 05/31/17 12:35 Urine pH 8.5 (4.6 - 8.0) 05/31/17 12:35 Ur Specific [place] 1.010 (1.005-1.030) 05/31/17 12:35 Urine Protein 30 mg/dL (NEGATIVE) H 05/31/17 12:35 Urine Glucose (UA) NEGATIVE mg/dL (NEGATIVE) 05/31/17 12:35 Urine Ketones NEGATIVE mg/dL (NEGATIVE) 05/31/17 12:35 Urine Blood MODERATE (NEGATIVE) H 05/31/17 12:35 Urine Nitrate NEGATIVE (NEGATIVE) 05/31/17 12:35 Urine Bilirubin NEGATIVE (NEGATIVE) 05/31/17 12:35 Urine Urobilinogen 0.2 E.U./dL (0.2 - 1.0) 05/31/17 12:35 Ur Leukocyte Esterase NEGATIVE (NEGATIVE) 05/31/17 12:35 Urine RBC >100 /hpf (0-5) H 05/31/17 12:35 Urine WBC 2-5 /hpf (0-5) H 05/31/17 12:35 Ur Epithelial Cells NONE SEEN /lpf (FEW) 05/31/17 12:35 Urine Bacteria NONE SEEN /hpf (NONE SEEN) 05/31/17 12:35 Stool Occult Blood NEGATIVE (NEGATIVE) 06/05/17 06:00 Gentamicin Peak 5.1 ug/ml (4.0-8.0) L 06/06/17 12:30 Gentamicin Trough 0.6 ug/ml (0.2-2.0) 06/06/17 08:00 Vancomycin Trough 10.7 ug/mL (10-20) 06/04/17 09:00 Influenza A (Rapid) NEG FOR INF A 06/05/17 08:00 Influenza B (Rapid) NEG FOR INF B 06/05/17 08:00 Blood Type O POSITIVE 06/02/17 11:40 Antibody Screen NEGATIVE 06/02/17 11:40 Crossmatch See Detail 06/02/17 11:40 - Physical Exam Vitals and I&O: Vital Signs Temp 97.6 F 06/11/17 00:00 Pulse 84 06/11/17 03:00 Resp 12 06/11/17 03:00 BP 100/62 06/11/17 03:00 Pulse Ox 100 06/11/17 03:00 Intake & Output 06/10/17 06/10/17 06/11/17 06:59 18:59 06:59 Intake Total 2171.141 4660 100 Output Total 750 1100 Balance 855.000 34 100 Weight (lbs) 48.534 kg 62.397 kg Intake: Intake, IV Amount 1105.000 299 100 D5-0.45NS 1,000 ml @ 50 905.000 95 mls/hr IV .Q20H [facility] Rx#: [id number] Gentamicin 160 mg In 104 Sodium Chloride 0.9% 100 ml @ 100 mls/hr IV Q24HR@ 0900 [facility] Rx#:[id number] Meropenem 1 gm In 200 100 100 Dextrose 5% 100 ml @ 100 mls/hr IV Q8HR [facility] Rx#: [id number] Tube Feeding 500 435 Other 400 Output: Urine 750 1100 Other: # Bowel Movements 1 1 Stool Characteristics Liquid Brown Active Medications: Current Medications Acetaminophen (Tylenol 650mg Supp) 650 mg RC Q4HR PRN PRN Reason: FEVER >100.1 Stop: 07/30/17 13:39 Acetaminophen (Tylenol) 325 mg PO Q6H PRN PRN Reason: PAIN/FEVER Stop: 07/30/17 16:47 Last Admin: 06/10/17 20:59 Dose: 325 mg Acetylcysteine (Mucomyst 10%) 6 ml HHN Q4HRT [facility] Stop: 08/08/17 14:59 Last Admin: 06/10/17 19:09 Dose: Not Given Albuterol Sulfate (Albuterol 2.5mg/3ml Neb Ud) 1.25 mg HHN Q4HRT [facility] Stop: 08/06/17 18:59 Last Admin: 06/10/17 23:16 Dose: 1.25 mg Ascorbic Acid (Vitamin C) 500 mg GT DAILY [facility] Stop: 07/31/17 08:59 Last Admin: 06/10/17 09:49 Dose: 500 mg Bisacodyl (Dulcolax 10 Mg Supp) 10 mg RC Q72HR PRN PRN Reason: Constipation Stop: 07/30/17 13:39 [place] Oil/[place] Balsam/Trypsin (Venelex) 1 appl TP BID [facility] Stop: 07/31/17 16:59 Last Admin: 06/10/17 17:15 Dose: 1 appl Cholecalciferol (Vitamin D3) 500 iu PO DAILY [facility] Stop: 07/31/17 08:59 Last Admin: 06/10/17 09:49 Dose: 500 iu Diltiazem HCl (Cardizem) 5 mg IVP Q4H PRN PRN Reason: IF HR >120 Stop: 08/10/17 00:44 Last Admin: 06/11/17 00:48 Dose: 5 mg Famotidine (Pepcid) 20 mg IVP Q12H [facility] Stop: 07/31/17 12:44 Last Admin: 06/11/17 00:26 Dose: 20 mg Guaifenesin (Robitussin) 200 mg PO Q4HR PRN PRN Reason: Cough or Congestion Stop: 07/30/17 13:41 Last Admin: 06/10/17 20:59 Dose: 200 mg Heparin Sodium (Porcine) (Heparin) 5,000 units SUBQ Q12H [facility] Stop: 07/31/17 20:59 Last Admin: 06/10/17 20:39 Dose: Not Given Dextrose (D5w) 1,000 mls @ 0 mls/hr IV .Q0M [facility] PRN Reason: Wide Open Stop: 07/31/17 16:46 Last Infusion: 06/01/17 19:08 Dose: Infused Norepinephrine Bitartrate 4 mg (/ Dextrose) 254 mls @ 30.48 mls/hr IV TITR PRN ; Protocol; 8 MCG/MIN PRN Reason: BP MAINTENANCE (PER PROTOCOL) Stop: 07/31/17 16:46 Last Titration: 06/03/17 00:00 Dose: 0 mcg/min, 0 mls/hr Dextrose/Sodium Chloride (D5-0.45ns) 1,000 mls @ 50 mls/hr IV .Q20H [facility] Stop: 08/07/17 16:14 Last Admin: 06/10/17 09:50 Dose: 50 mls/hr Gentamicin Sulfate 160 mg/ (Sodium Chloride) 104 mls @ 100 mls/hr IV Q24HR@ 0900 [facility] Stop: 08/08/17 09:59 Last Infusion: 06/10/17 10:55 Dose: Infused Ipratropium [place] (Atrovent Neb 0.5mg/2.5ml) 0.5 mg HHN Q4HRT [facility] Stop: 08/06/17 18:59 Last Admin: 06/10/17 23:16 Dose: 0.5 mg Lactulose (Cephulac) 30 gm PO BID [facility] Stop: 08/03/17 16:59 Last Admin: 06/10/17 18:16 Dose: Not Given Methylprednisolone Sodium Succinate (Solu-Medrol) 40 mg IVP Q8HR [facility] Stop: 07/30/17 20:59 Last Admin: 06/10/17 20:40 Dose: 40 mg Miscellaneous (Vte Chemical Prophylaxis Screen/ Admission) 1 ea PRN PRN PRN Reason: PROTOCOL Stop: 07/31/17 14:00 Miscellaneous (Probiotic Screen) 1 ea PRN PRN PRN Reason: PROTOCOL Stop: 07/31/17 16:02 Miscellaneous (Gentamicin Iv Per Pharmacy) 1 ea MC DAILY [facility] Stop: 08/09/17 08:59 Multivitamins/Vitamin C (Theragran) 1 tab GT DAILY [facility] Stop: 07/31/17 08:59 Last Admin: 06/10/17 09:49 Dose: 1 tab Ondansetron HCl (Zofran) 4 mg IV Q8H PRN PRN Reason: Nausea / Vomiting Stop: 07/30/17 13:41 Sodium Phosphate (Fleet Enema) 133 ml RC DAILY PRN PRN Reason: Constipation Stop: 07/30/17 13:39 General: no acute distress, well developed, well nourished HEENT: atraumatic, normocephalic, PERRLA, EOMI Neck: supple, no thyromegaly Cardiovascular: S1S2, regular Lungs: clear to percussion, crackles Abdomen: soft, no tender, no distended Extremities: no cyanosis, no clubbing, no edema Neurological: awake, alert Skin: intact - Procedures Procedures: Procedures Procedure Code Date INSERT EMERGENCY AIRWAY 77723 05/31/17 INSERTION OF ENDOTRACHEAL AIRWAY INTO [place]HE[place], VIA OPENING [id number] 05/31/17 RESPIRATORY VENTILATION, GREATER THAN 96 CONSECUTIVE HOURS [id number] 05/31/17 VENT MGMT INPAT INIT DAY 44063 05/31/17 Infectious Disease Assmt/Plan - Problem List Patient Problems: All Active Problems COUGH AND CONGESTION (Acute) - Assessment Assessment: 1. Sepsis. 2. G Tube site ESBL + E coli. 3. Pneumonia. 4. Acute respiratory failure and went dependence. 5. Altered mental status unresponsiveness, likely secondary to toxic metabolic encephalopathy. improving. 6. Cerebral palsy. 7. Aspiration again. - Plan Plan: Continue meropenem for 5 more days. Nutritional Asmnt/Malnutr-PDOC - Dietary Evaluation Malnutrition Findings (Please click <Entered> for more info): Nutritional Asmnt/Malnutrition Start: 06/01/17 17: 31 Text: Status: Complete Freq: Document 06/01/17 17:31 LCJOSELING (Rec: 06/01/17 17:45 SHELBIE [id number]) Nutritional Asmnt/Malnutrition Patient General Information Nutritional Screening High Risk Consult Diagnosis renal failure, prespiratory failure r/o PNA Pertinent Medical Hx/Surgical Hx dementia, MR anemia, spastic quadriplegia, cerebral palsy, seizure, aspiration PNA, s/p respiratory failure, spsis, hyponatremia, gastroenteritis, PEG Subjective Information Consult received for Anibal 13 and pressure ulcer. Pt seen resting in bed at the time of visit, intubated, non-verbal noted. TF not running at this time. Current Diet Order/ Nutrition Support Isosource 1.5 87ml/hr x 17hr Pertinent Medications vitamin C, vitamin D3, D5w, teragran, piperacillin, miralax, cancomycin Pertinent Labs 06/01 na 160, Cl 120, K 4.1, BUN 29, Cr 0.3, Glucose 242, A1c 5.1, Ca 8.4, Mg 2.8 Nutritional Hx/Data Height 1.68 m Height (Calculated Centimeters) 167.6 Current Weight (lbs) 47.854 kg Weight (Calculated Kilograms) 47.9 Weight (Calculated Grams) 19350.0 [place] Body Weight 142 % [place] Body Weight 94 Body Mass Index (BMI) 17.0 Weight Status Underweight GI Symptoms GI Symptoms None Last BM none Difficult in: None Usual diet at home Jevity 1.5 87ml/hr x 17hr Skin Integrity/Comment: decubitus ulceration to sacrum Estimated Nutritional Goals Calories/Kcals/Kg 25-30 Kcals Calculated [id number] based on IBW 65kg Protein g/k.2-1.4 Protein Calculated 78-91 consider respiratory failure and skin probelm Nutritional Problem 1. Problem Problem excessive intake from enteral feeding Etiology current TF regimen providing excessive calorie and protein than estimated nutritional needs Signs/Symptoms: current TF providing 114% of calorie needs and 110% of protein needs Malnutrition Alert Protein-Calorie Malnutrition N/A Is there a minimum of two criteria No selected? Query Text:Check all the applicable criteria. A minimum of two criteria are recommended for diagnosis of either severe or non-severe malnutrition. Intervention/Recommendation Comments 1. Recommend modify TF rate to 70ml/hr x 17hr to meet 100% of nutritional needs and avoid overfeeding. 2. Monitor TF rate, tolerance, wt weekly, skin integrity and labs 3. F/U as moderate risk in 3-5 days, 04/25-04/27 Expected Outcomes/Goals Expected Outcomes/Goals 1. Pt to meet 75-100% of nutritional needs via nutrition support with tolerance 2. 2. Wt stability, skin to remain intact, labs to approach WNL.
[2017-06-11] MEDS: Ipratropium Neb 0.5 mg/2.5 mL UD HHN SCH ×6 (03:35→22:33)
[2017-06-11] MEDS: Albuterol Nebulizer 2.5mg/3mL HHN SCH ×6 (03:35→22:33)
[2017-06-11] MEDS: Acetylcysteine 10% 10 ML VIAL HHN SCH ×5 (03:46→22:33)
[2017-06-11] MEDS: Meropenem 1 GM in Sodium Chloride 0.9% 100 ML IV SCH ×3 (04:37→22:09)
[2017-06-11] MEDS: methylPREDNISolone SS 40 mg Vial IVP SCH ×3 (04:37→22:12)
[2017-06-11] MEDS ORDERED: Meropenem 1 GM in Sodium Chloride 0.9% 100 ML IV SCH (05:00)
[2017-06-11] MEDS: D5-0.45NS 1,000 ML IV SCH (06:00)
[2017-06-11 06:29] LABS: BASOPHILE ABSOLUTE 0.3 Th/cumm (0-0.2); HEMATOCRIT 28.6 % (41.0-60); HEMOGLOBIN 9.9 gm/dL (12-16); LYMPHOCYTE ABSOLUTE 0.3 Th/cmm (1.5-3.0); MEAN CORPUSCULAR HEMOGLOBIN 31.1 pg (26.0-30.0); MEAN CORPUSCULAR HGB CONC 34.5 pg (28.0-36.0); MEAN PLATELET VOLUME 7.4 fl; MONOCYTE ABSOLUTE 0.1 Th/cmm (0.3-1.0); NEUTROPHILE ABSOLUTE 10.8 Th/cmm (1.8-8.0); PLATELET COUNT 215 Th/cmm (150-400); RED BLOOD COUNT 3.18 Mil/cmm (4.30-5.70); RED CELL DISTRIBUTION WIDTH 16.3 % (11.5-20.0)
[2017-06-11 06:47] LABS: INR 1.09 (0.5-1.4); PROTHROMBIN TIME (TEST) 11.3 SECONDS (9.5-11.5)
[2017-06-11 06:51] LABS: ANION GAP 7.4 (7.0-16.0); BUN - UREA NITROGEN 24 mg/dL (7-25); CALCIUM SERUM 7.8 mg/dL (8.6-10.3); CARBON DIOXIDE 30.7 mEq/L (21.0-31.0); CHLORIDE 103 mEq/L (98-107); CREATININE - SERUM 0.2 mg/dL (0.7-1.3); GFR AFRICAN-AMERICAN > 60.0 ml/min (>90); GFR NON AFRICAN-AMERICAN > 60.0 ml/min; GLUCOSE 118 mg/dL (70-105); POTASSIUM SERUM 4.1 mEq/L (3.5-5.1); SODIUM SERUM 137 mEq/L (136-145)
[2017-06-11 06:54] LABS: WHITE BLOOD COUNT 11.5 Th/cmm (4.8-10.8)
[2017-06-11] MEDS: Lactulose 10 Gm/15 mL 30mL UDC PO SCH ×2 (09:18→16:14)
[2017-06-11] MEDS: Multivitamin Tab GT SCH (09:18)
[2017-06-11] MEDS: Gentamicin 160 MG in Sodium Chloride 0.9% 100 ML IV SCH (09:46)
--- NOTE | 2017-06-11 10:49 | General Progress Note ---
Subjective - Review of Systems Service Date: 06/11/17 Events since last encounter: DISCUSSED INFORMED CONSENT WITH FATHER YESTERDAY WHO AGREED TO DIVERTING COLOSTOMY, DEBRIDEMENT OF DECUBITUS ULCER AND APPLICATION OF WOUND VAC WHEN MEDICALLY CLEARED, WILL SCHEDULE FOR SURGERY Objective - Results Result Diagrams: 06/11/17 06:10 06/11/17 06:10 Recent Labs: Laboratory Last Values WBC 11.5 Th/cmm (4.8-10.8) H D 06/11/17 06:10 RBC 3.18 Mil/cmm (4.30-5.70) L 06/11/17 06:10 Hgb 9.9 gm/dL (12-16) L 06/11/17 06:10 Hct 28.6 % (41.0-60) L 06/11/17 06:10 MCV 90.0 fl (80-99) 06/11/17 06:10 MCH 31.1 pg (26.0-30.0) H 06/11/17 06:10 MCHC Differential 34.5 pg (28.0-36.0) 06/11/17 06:10 RDW 16.3 % (11.5-20.0) 06/11/17 06:10 Plt Count 215 Th/cmm (150-400) 06/11/17 06:10 MPV 7.4 fl 06/11/17 06:10 Neutrophils % 89.7 % (40.0-80.0) H 06/05/17 05:48 Band Neutrophils % 5 % (0-10) 06/07/17 06:30 Lymphocytes % 6.6 % (20.0-50.0) L 06/05/17 05:48 Monocytes % 3.6 % (2.0-10.0) 06/05/17 05:48 Eosinophils % 0.1 % (0.0-5.0) 06/05/17 05:48 Basophils % 0.0 % (0.0-2.0) 06/05/17 05:48 Neutrophils (Manual) 81 % (40-80) H 06/07/17 06:30 Lymphocytes 10 % (20-50) L 06/07/17 06:30 Monocytes 4 % (2-10) 06/07/17 06:30 Platelet Estimate ADEQUATE (NORMAL) 06/07/17 06:30 PT 11.3 SECONDS (9.5-11.5) 06/11/17 06:10 INR 1.09 (0.5-1.4) 06/11/17 06:10 PTT (Actin FS) 23.1 SECONDS (26.0-38.0) L 06/11/17 06:10 Specimen Source Arterial 06/07/17 13:05 Sample Site Right Radial 06/07/17 13:05 pH 7.52 (7.35-7.45) H 06/07/17 13:05 pCO2 45.0 mmHg (35.0-45.0) 06/07/17 13:05 pO2 95.0 mmHg (80.0-100.0) 06/07/17 13:05 HCO3 34.6 mEq/L (20.0-26.0) H 06/07/17 13:05 Base Excess 12.4 mEq/L (-3.0-3.0) H 06/07/17 13:05 O2 Saturation 98.0 % (92.0-100.0) 06/07/17 13:05 Endy Test YES 06/07/17 13:05 Vent Rate NA 06/07/17 13:05 Inspired O2 40 06/07/17 13:05 Tidal Volume NA 06/07/17 13:05 PEEP NA 06/07/17 13:05 Pressure (ins/psv/peep) NA 06/07/17 13:05 Critical Value E.BABCOCK 06/07/17 13:05 Sodium 137 mEq/L (136-145) 06/11/17 06:10 Potassium 4.1 mEq/L (3.5-5.1) 06/11/17 06:10 Chloride 103 mEq/L (98-107) 06/11/17 06:10 Carbon Dioxide 30.7 mEq/L (21.0-31.0) 06/11/17 06:10 Anion Gap 7.4 (7.0-16.0) 06/11/17 06:10 BUN 24 mg/dL (7-25) 06/11/17 06:10 Creatinine 0.2 mg/dL (0.7-1.3) L 06/11/17 06:10 Est GFR ( Amer) > 60.0 ml/min (>90) 06/11/17 06:10 Est GFR (Non-Af Amer) > 60.0 ml/min 06/11/17 06:10 BUN/Creatinine Ratio 120.0 06/11/17 06:10 Glucose 118 mg/dL (70-105) H 06/11/17 06:10 POC Glucose 213 MG/DL (70 - 105) H 06/01/17 06:53 Hemoglobin A1c % 5.1 % (4.0-6.0) 06/01/17 05:30 Whole Bld Lactic Acid 3.45 mmol/L (0.60-1.99) H* 06/03/17 06:45 Calcium 7.8 mg/dL (8.6-10.3) L 06/11/17 06:10 Magnesium 2.1 mg/dL (1.9-2.7) 06/07/17 06:30 Total Bilirubin 0.6 mg/dL (0.3-1.0) 06/10/17 06:20 AST 38 U/L (13-39) 06/10/17 06:20 ALT 90 U/L (7-52) H 06/10/17 06:20 Alkaline Phosphatase 69 U/L (34-104) 06/10/17 06:20 Ammonia 64 umol/L (16-53) H 06/04/17 06:45 B-Natriuretic Peptide 129.0 pg/mL (5.0-100.0) H 06/04/17 06:45 Total Protein 4.3 gm/dL (6.0-8.3) L 06/10/17 06:20 Albumin 2.1 gm/dL (4.2-5.5) L 06/10/17 06:20 Globulin 2.2 gm/dL 06/10/17 06:20 Albumin/Globulin Ratio 1.0 (1.0-1.8) 06/10/17 06:20 TSH 0.72 uIU/ml (0.34-5.60) 06/01/17 05:30 Urine Source CATH 05/31/17 12:35 Urine Color YELLOW 05/31/17 12:35 Urine Clarity CLOUDY (CLEAR) 05/31/17 12:35 Urine pH 8.5 (4.6 - 8.0) 05/31/17 12:35 Ur Specific [place] 1.010 (1.005-1.030) 05/31/17 12:35 Urine Protein 30 mg/dL (NEGATIVE) H 05/31/17 12:35 Urine Glucose (UA) NEGATIVE mg/dL (NEGATIVE) 05/31/17 12:35 Urine Ketones NEGATIVE mg/dL (NEGATIVE) 05/31/17 12:35 Urine Blood MODERATE (NEGATIVE) H 05/31/17 12:35 Urine Nitrate NEGATIVE (NEGATIVE) 05/31/17 12:35 Urine Bilirubin NEGATIVE (NEGATIVE) 05/31/17 12:35 Urine Urobilinogen 0.2 E.U./dL (0.2 - 1.0) 05/31/17 12:35 Ur Leukocyte Esterase NEGATIVE (NEGATIVE) 05/31/17 12:35 Urine RBC >100 /hpf (0-5) H 05/31/17 12:35 Urine WBC 2-5 /hpf (0-5) H 05/31/17 12:35 Ur Epithelial Cells NONE SEEN /lpf (FEW) 05/31/17 12:35 Urine Bacteria NONE SEEN /hpf (NONE SEEN) 05/31/17 12:35 Stool Occult Blood NEGATIVE (NEGATIVE) 06/05/17 06:00 Gentamicin Peak 5.1 ug/ml (4.0-8.0) L 06/06/17 12:30 Gentamicin Trough 0.8 ug/ml (0.2-2.0) 06/11/17 08:00 Vancomycin Trough 10.7 ug/mL (10-20) 06/04/17 09:00 Influenza A (Rapid) NEG FOR INF A 06/05/17 08:00 Influenza B (Rapid) NEG FOR INF B 06/05/17 08:00 Blood Type O POSITIVE 06/02/17 11:40 Antibody Screen NEGATIVE 06/02/17 11:40 Crossmatch See Detail 06/02/17 11:40 - Physical Exam Vitals and I&O: Vital Signs Temp 97.7 F 06/11/17 08:00 Pulse 102 06/11/17 09:00 Resp 19 06/11/17 09:00 BP 105/60 06/11/17 09:00 Pulse Ox 96 06/11/17 09:00 Intake & Output 06/10/17 06/11/17 06/11/17 18:59 06:59 18:59 Intake Total 1134 2822 Output Total 1100 1000 Balance 34 1822 Weight (lbs) 62.397 kg 62.397 kg Intake: Intake, IV Amount 299 1200 D5-0.45NS 1,000 ml @ 50 95 1000 mls/hr IV .Q20H [facility] Rx#: [id number] Gentamicin 160 mg In 104 Sodium Chloride 0.9% 100 ml @ 100 mls/hr IV Q24HR@ 0900 [facility] Rx#:[id number] Meropenem 1 gm In 100 100 Dextrose 5% 100 ml @ 100 mls/hr IV Q8HR [facility] Rx#: [id number] Meropenem 1 gm In Sodium 100 Chloride 0.9% 100 ml @ 100 mls/hr IV Q8H [facility] Rx# :[id number] Oral 0 Tube Feeding 435 522 Albumin 100 Other 400 1000 Output: Urine 1100 1000 Other: # Bowel Movements 1 1 Stool Characteristics Liquid Soft Brown Brown Active Medications: Current Medications Acetaminophen (Tylenol 650mg Supp) 650 mg RC Q4HR PRN PRN Reason: FEVER >100.1 Stop: 07/30/17 13:39 Acetaminophen (Tylenol) 325 mg PO Q6H PRN PRN Reason: PAIN/FEVER Stop: 07/30/17 16:47 Last Admin: 06/10/17 20:59 Dose: 325 mg Acetylcysteine (Mucomyst 10%) 6 ml HHN Q4HRT [facility] Stop: 08/08/17 14:59 Last Admin: 06/11/17 07:48 Dose: Not Given Albuterol Sulfate (Albuterol 2.5mg/3ml Neb Ud) 1.25 mg HHN Q4HRT [facility] Stop: 08/06/17 18:59 Last Admin: 06/11/17 07:46 Dose: 1.25 mg Ascorbic Acid (Vitamin C) 500 mg GT DAILY [facility] Stop: 07/31/17 08:59 Last Admin: 06/11/17 09:18 Dose: Not Given Bisacodyl (Dulcolax 10 Mg Supp) 10 mg RC Q72HR PRN PRN Reason: Constipation Stop: 07/30/17 13:39 [place] Oil/[place] Balsam/Trypsin (Venelex) 1 appl TP BID [facility] Stop: 07/31/17 16:59 Last Admin: 06/10/17 17:15 Dose: 1 appl Cholecalciferol (Vitamin D3) 500 iu PO DAILY [facility] Stop: 07/31/17 08:59 Last Admin: 06/11/17 09:18 Dose: Not Given Diltiazem HCl (Cardizem) 5 mg IVP Q4H PRN PRN Reason: IF HR >120 Stop: 08/10/17 00:44 Last Admin: 06/11/17 00:48 Dose: 5 mg Famotidine (Pepcid) 20 mg IVP Q12H [facility] Stop: 07/31/17 12:44 Last Admin: 06/11/17 00:26 Dose: 20 mg Guaifenesin (Robitussin) 200 mg PO Q4HR PRN PRN Reason: Cough or Congestion Stop: 07/30/17 13:41 Last Admin: 06/10/17 20:59 Dose: 200 mg Heparin Sodium (Porcine) (Heparin) 5,000 units SUBQ Q12H [facility] Stop: 07/31/17 20:59 Last Admin: 06/11/17 09:18 Dose: Not Given Norepinephrine Bitartrate 4 mg (/ Dextrose) 254 mls @ 30.48 mls/hr IV TITR PRN ; Protocol; 8 MCG/MIN PRN Reason: BP MAINTENANCE (PER PROTOCOL) Stop: 07/31/17 16:46 Last Titration: 06/03/17 00:00 Dose: 0 mcg/min, 0 mls/hr Dextrose/Sodium Chloride (D5-0.45ns) 1,000 mls @ 50 mls/hr IV .Q20H [facility] Stop: 08/07/17 16:14 Last Admin: 06/11/17 06:00 Dose: 50 mls/hr Gentamicin Sulfate 160 mg/ (Sodium Chloride) 104 mls @ 100 mls/hr IV Q24HR@ 0900 [facility] Stop: 08/08/17 09:59 Last Admin: 06/11/17 09:46 Dose: 100 mls/hr Meropenem 1 gm/ Sodium (Chloride) 100 mls @ 100 mls/hr IV Q8H [facility] Stop: 06/16/17 04:59 Last Infusion: 06/11/17 05:40 Dose: Infused Ipratropium [place] (Atrovent Neb 0.5mg/2.5ml) 0.5 mg HHN Q4HRT [facility] Stop: 08/06/17 18:59 Last Admin: 06/11/17 07:47 Dose: 0.5 mg Lactulose (Cephulac) 30 gm PO BID [facility]ND[facility] Stop: 08/03/17 16:59 Last Admin: 06/11/17 09:18 Dose: Not Given Methylprednisolone Sodium Succinate (Solu-Medrol) 40 mg IVP Q8HR [facility] Stop: 07/30/17 20:59 Last Admin: 06/11/17 04:37 Dose: 40 mg Miscellaneous (Vte Chemical Prophylaxis Screen/ Admission) 1 ea MC PRN PRN PRN Reason: PROTOCOL Stop: 07/31/17 14:00 Miscellaneous (Probiotic Screen) 1 ea MC PRN PRN PRN Reason: PROTOCOL Stop: 07/31/17 16:02 Miscellaneous (Gentamicin Iv Per Pharmacy) 1 ea MC DAILY [facility]NANDO Stop: 08/09/17 08:59 Multivitamins/Vitamin C (Theragran) 1 tab GT DAILY FERNANDO Stop: 07/31/17 08:59 Last Admin: 06/11/17 09:18 Dose: Not Given Ondansetron HCl (Zofran) 4 mg IV Q8H PRN PRN Reason: Nausea / Vomiting Stop: 07/30/17 13:41 Sodium Phosphate (Fleet Enema) 133 ml RC DAILY PRN PRN Reason: Constipation Stop: 07/30/17 13:39 - Procedures Procedures: Procedures Procedure Code Date INSERT EMERGENCY AIRWAY 89217 05/31/17 INSERTION OF ENDOTRACHEAL AIRWAY INTO TRACHEA, VIA OPENING [id number] 05/31/17 RESPIRATORY VENTILATION, GREATER THAN 96 CONSECUTIVE HOURS [id number] 05/31/17 VENT MGMT INPAT INIT DAY 82277 05/31/17 Assessment/Plan - Problem List Patient Problems: All Active Problems COUGH AND CONGESTION (Acute) Nutritional Asmnt/Malnutr-PDOC - Dietary Evaluation Malnutrition Findings (Please click <Entered> for more info): Nutritional Asmnt/Malnutrition Start: 06/01/17 17: 31 Text: Status: Complete Freq: Document 06/01/17 17:31 SHELBIE (Rec: 06/01/17 17:45 SHELBIE [id number]) Nutritional Asmnt/Malnutrition Patient General Information Nutritional Screening High Risk Consult Diagnosis renal failure, prespiratory failure r/o PNA Pertinent Medical Hx/Surgical Hx dementia, MR anemia, spastic quadriplegia, cerebral palsy, seizure, aspiration PNA, s/p respiratory failure, spsis, hyponatremia, gastroenteritis, PEG Subjective Information Consult received for Anibal 13 and pressure ulcer. Pt seen resting in bed at the time of visit, intubated, non-verbal noted. TF not running at this time. Current Diet Order/ Nutrition Support Isosource 1.5 87ml/hr x 17hr Pertinent Medications vitamin C, vitamin D3, D5w, teragran, piperacillin, miralax, cancomycin Pertinent Labs 06/01 na 160, Cl 120, K 4.1, BUN 29, Cr 0.3, Glucose 242, A1c 5.1, Ca 8.4, Mg 2.8 Nutritional Hx/Data Height 1.68 m Height (Calculated Centimeters) 167.6 Current Weight (lbs) 47.854 kg Weight (Calculated Kilograms) 47.9 Weight (Calculated Grams) 64556.0 [place] Body Weight 142 % [place] Body Weight 94 Body Mass Index (BMI) 17.0 Weight Status Underweight GI Symptoms GI Symptoms None Last BM none Difficult in: None Usual diet at home Jevity 1.5 87ml/hr x 17hr Skin Integrity/Comment: decubitus ulceration to sacrum Estimated Nutritional Goals Calories/Kcals/Kg 25-30 Kcals Calculated [id number] based on IBW 65kg Protein g/k.2-1.4 Protein Calculated 78-91 consider respiratory failure and skin probelm Nutritional Problem 1. Problem Problem excessive intake from enteral feeding Etiology current TF regimen providing excessive calorie and protein than estimated nutritional needs Signs/Symptoms: current TF providing 114% of calorie needs and 110% of protein needs Malnutrition Alert Protein-Calorie Malnutrition N/A Is there a minimum of two criteria No selected? Query Text:Check all the applicable criteria. A minimum of two criteria are recommended for diagnosis of either severe or non-severe malnutrition. Intervention/Recommendation Comments 1. Recommend modify TF rate to 70ml/hr x 17hr to meet 100% of nutritional needs and avoid overfeeding. 2. Monitor TF rate, tolerance, wt weekly, skin integrity and labs 3. F/U as moderate risk in 3-5 days, 04/25-04/27 Expected Outcomes/Goals Expected Outcomes/Goals 1. Pt to meet 75-100% of nutritional needs via nutrition support with tolerance 2. 2. Wt stability, skin to remain intact, labs to approach WNL.
--- NOTE | 2017-06-11 11:35 | Consultation ---
DATE OF CONSULTATION: 06/10/2017 SURGICAL CONSULTATION REFERRING PHYSICIAN: Dr. Stephens. REASON FOR CONSULTATION: Sacral decubitus ulcer. Thank you for referring this patient to me. HISTORY OF PRESENT ILLNESS: This is a 52-year-old male with history of cerebral palsy, admitted because of agonal breathing and unresponsiveness. This was 10 days ago. He was intubated. He has past history of cerebral palsy, respiratory failure, and bedridden status. The patient has been seen in consultation by multiple consultants including Pulmonary, Infectious Disease, and Cardiology. LABORATORY DATA AND DIAGNOSTIC STUDIES: The laboratory studies show WBC at 15,400, hemoglobin of 10.4. PT and PTT are essentially normal. Chemistry: BUN is 29, creatinine of 0.2, glucose 136. Albumin is slightly low at 2.1. Chest x-ray last done 5 days ago shows increased bibasilar lung markings representing atelectasis versus infiltrates. PHYSICAL EXAMINATION: The patient is unresponsive, but is awake. There is rather shallow sacral decubitus ulcer measuring about 8 cm across, but because of his very asthenic physique, there is very little between the skin and the bone, which is easily palpable. He is incontinent. ASSESSMENT AND PLAN: The father was called via telephone about the best solution for this poor situation and a diverting colostomy was recommended together with debridement of the ulcer and application of wound VAC. He has agreed to this. We will schedule the patient for surgery. JOB# [id number]
[2017-06-11] MEDS: Venelex 60gm Tube TP SCH ×2 (13:19→16:15)
[2017-06-11 14:13] LABS: HEP A AB IGM Negative (Negative); HEP B CORE IGM Negative (Negative); HEP B SURFACE AG QL Negative (Negative); HEP C ANTIBODY 6.9 s/co ratio (0.0-0.9)
--- NOTE | 2017-06-11 15:04 | Internal Medicine Prog Note ---
Internal Medicine Subjective - Subjective Patient seen and examined:: with staff, chart reviewed Patient is:: awake, non-verbal, non-interactive, in bed, other Patient Complaints of:: congestion Per staff patient has:: no adverse event, tolerating meds Internal Medicine Objective - Results Result Diagrams: 06/11/17 06:10 06/11/17 06:10 Recent Labs: Laboratory Last Values WBC 11.5 Th/cmm (4.8-10.8) H D 06/11/17 06:10 RBC 3.18 Mil/cmm (4.30-5.70) L 06/11/17 06:10 Hgb 9.9 gm/dL (12-16) L 06/11/17 06:10 Hct 28.6 % (41.0-60) L 06/11/17 06:10 MCV 90.0 fl (80-99) 06/11/17 06:10 MCH 31.1 pg (26.0-30.0) H 06/11/17 06:10 MCHC Differential 34.5 pg (28.0-36.0) 06/11/17 06:10 RDW 16.3 % (11.5-20.0) 06/11/17 06:10 Plt Count 215 Th/cmm (150-400) 06/11/17 06:10 MPV 7.4 fl 06/11/17 06:10 Neutrophils % 89.7 % (40.0-80.0) H 06/05/17 05:48 Band Neutrophils % 5 % (0-10) 06/07/17 06:30 Lymphocytes % 6.6 % (20.0-50.0) L 06/05/17 05:48 Monocytes % 3.6 % (2.0-10.0) 06/05/17 05:48 Eosinophils % 0.1 % (0.0-5.0) 06/05/17 05:48 Basophils % 0.0 % (0.0-2.0) 06/05/17 05:48 Neutrophils (Manual) 81 % (40-80) H 06/07/17 06:30 Lymphocytes 10 % (20-50) L 06/07/17 06:30 Monocytes 4 % (2-10) 06/07/17 06:30 Platelet Estimate ADEQUATE (NORMAL) 06/07/17 06:30 PT 11.3 SECONDS (9.5-11.5) 06/11/17 06:10 INR 1.09 (0.5-1.4) 06/11/17 06:10 PTT (Actin FS) 23.1 SECONDS (26.0-38.0) L 06/11/17 06:10 Specimen Source Arterial 06/07/17 13:05 Sample Site Right Radial 06/07/17 13:05 pH 7.52 (7.35-7.45) H 06/07/17 13:05 pCO2 45.0 mmHg (35.0-45.0) 06/07/17 13:05 pO2 95.0 mmHg (80.0-100.0) 06/07/17 13:05 HCO3 34.6 mEq/L (20.0-26.0) H 06/07/17 13:05 Base Excess 12.4 mEq/L (-3.0-3.0) H 06/07/17 13:05 O2 Saturation 98.0 % (92.0-100.0) 06/07/17 13:05 Endy Test YES 06/07/17 13:05 Vent Rate NA 06/07/17 13:05 Inspired O2 40 06/07/17 13:05 Tidal Volume NA 06/07/17 13:05 PEEP NA 06/07/17 13:05 Pressure (ins/psv/peep) NA 06/07/17 13:05 Critical Value E.BABCOCK 06/07/17 13:05 Sodium 137 mEq/L (136-145) 06/11/17 06:10 Potassium 4.1 mEq/L (3.5-5.1) 06/11/17 06:10 Chloride 103 mEq/L (98-107) 06/11/17 06:10 Carbon Dioxide 30.7 mEq/L (21.0-31.0) 06/11/17 06:10 Anion Gap 7.4 (7.0-16.0) 06/11/17 06:10 BUN 24 mg/dL (7-25) 06/11/17 06:10 Creatinine 0.2 mg/dL (0.7-1.3) L 06/11/17 06:10 Est GFR ( Amer) > 60.0 ml/min (>90) 06/11/17 06:10 Est GFR (Non-Af Amer) > 60.0 ml/min 06/11/17 06:10 BUN/Creatinine Ratio 120.0 06/11/17 06:10 Glucose 118 mg/dL (70-105) H 06/11/17 06:10 POC Glucose 213 MG/DL (70 - 105) H 06/01/17 06:53 Hemoglobin A1c % 5.1 % (4.0-6.0) 06/01/17 05:30 Whole Bld Lactic Acid 3.45 mmol/L (0.60-1.99) H* 06/03/17 06:45 Calcium 7.8 mg/dL (8.6-10.3) L 06/11/17 06:10 Magnesium 2.1 mg/dL (1.9-2.7) 06/07/17 06:30 Total Bilirubin 0.6 mg/dL (0.3-1.0) 06/10/17 06:20 AST 38 U/L (13-39) 06/10/17 06:20 ALT 90 U/L (7-52) H 06/10/17 06:20 Alkaline Phosphatase 69 U/L (34-104) 06/10/17 06:20 Ammonia 64 umol/L (16-53) H 06/04/17 06:45 B-Natriuretic Peptide 129.0 pg/mL (5.0-100.0) H 06/04/17 06:45 Total Protein 4.3 gm/dL (6.0-8.3) L 06/10/17 06:20 Albumin 2.1 gm/dL (4.2-5.5) L 06/10/17 06:20 Globulin 2.2 gm/dL 06/10/17 06:20 Albumin/Globulin Ratio 1.0 (1.0-1.8) 06/10/17 06:20 TSH 0.72 uIU/ml (0.34-5.60) 06/01/17 05:30 Urine Source CATH 05/31/17 12:35 Urine Color YELLOW 05/31/17 12:35 Urine Clarity CLOUDY (CLEAR) 05/31/17 12:35 Urine pH 8.5 (4.6 - 8.0) 05/31/17 12:35 Ur Specific [place] 1.010 (1.005-1.030) 05/31/17 12:35 Urine Protein 30 mg/dL (NEGATIVE) H 05/31/17 12:35 Urine Glucose (UA) NEGATIVE mg/dL (NEGATIVE) 05/31/17 12:35 Urine Ketones NEGATIVE mg/dL (NEGATIVE) 05/31/17 12:35 Urine Blood MODERATE (NEGATIVE) H 05/31/17 12:35 Urine Nitrate NEGATIVE (NEGATIVE) 05/31/17 12:35 Urine Bilirubin NEGATIVE (NEGATIVE) 05/31/17 12:35 Urine Urobilinogen 0.2 E.U./dL (0.2 - 1.0) 05/31/17 12:35 Ur Leukocyte Esterase NEGATIVE (NEGATIVE) 05/31/17 12:35 Urine RBC >100 /hpf (0-5) H 05/31/17 12:35 Urine WBC 2-5 /hpf (0-5) H 05/31/17 12:35 Ur Epithelial Cells NONE SEEN /lpf (FEW) 05/31/17 12:35 Urine Bacteria NONE SEEN /hpf (NONE SEEN) 05/31/17 12:35 Stool Occult Blood NEGATIVE (NEGATIVE) 06/05/17 06:00 Gentamicin Peak 13.8 ug/ml (4.0-8.0) H 06/11/17 11:05 Gentamicin Trough 0.8 ug/ml (0.2-2.0) 06/11/17 08:00 Vancomycin Trough 10.7 ug/mL (10-20) 06/04/17 09:00 Hepatitis A IgM Ab Negative (Negative) 06/10/17 06:20 Hep Bs Antigen Negative (Negative) 06/10/17 06:20 Hep B Core IgM Ab Negative (Negative) 06/10/17 06:20 Hepatitis C Antibody 6.9 s/co ratio (0.0-0.9) H 06/10/17 06:20 Influenza A (Rapid) NEG FOR INF A 06/05/17 08:00 Influenza B (Rapid) NEG FOR INF B 06/05/17 08:00 Blood Type O POSITIVE 06/02/17 11:40 Antibody Screen NEGATIVE 06/02/17 11:40 Crossmatch See Detail 06/02/17 11:40 - Physical Exam Vitals and I&O: Vital Signs Temp 97.7 F 06/11/17 08:00 Pulse 87 06/11/17 14:00 Resp 14 06/11/17 14:00 BP 96/55 06/11/17 14:00 Pulse Ox 98 06/11/17 14:00 Intake & Output 06/10/17 06/11/17 06/11/17 18:59 06:59 18:59 Intake Total 1134 2822 104 Output Total 1100 1000 Balance 34 1822 104 Weight (lbs) 62.397 kg 62.397 kg Intake: Intake, IV Amount 299 1200 104 D5-0.45NS 1,000 ml @ 50 95 1000 mls/hr IV .Q20H [facility] Rx#: [id number] Gentamicin 160 mg In 104 104 Sodium Chloride 0.9% 100 ml @ 100 mls/hr IV Q24HR@ 0900 [facility] Rx#:[id number] Meropenem 1 gm In 100 100 Dextrose 5% 100 ml @ 100 mls/hr IV Q8HR [facility] Rx#: [id number] Meropenem 1 gm In Sodium 100 Chloride 0.9% 100 ml @ 100 mls/hr IV Q8H [facility] Rx# :[id number] Oral 0 Tube Feeding 435 522 Albumin 100 Other 400 1000 Output: Urine 1100 1000 Other: # Bowel Movements 1 1 Stool Characteristics Liquid Soft Brown Brown Active Medications: Current Medications Acetaminophen (Tylenol 650mg Supp) 650 mg RC Q4HR PRN PRN Reason: FEVER >100.1 Stop: 07/30/17 13:39 Acetaminophen (Tylenol) 325 mg PO Q6H PRN PRN Reason: PAIN/FEVER Stop: 07/30/17 16:47 Last Admin: 06/10/17 20:59 Dose: 325 mg Acetylcysteine (Mucomyst 10%) 6 ml HHN Q4HRT [facility] Stop: 08/08/17 14:59 Last Admin: 06/11/17 07:48 Dose: Not Given Albuterol Sulfate (Albuterol 2.5mg/3ml Neb Ud) 1.25 mg HHN Q4HRT [facility] Stop: 08/06/17 18:59 Last Admin: 06/11/17 11:12 Dose: 1.25 mg Ascorbic Acid (Vitamin C) 500 mg GT DAILY [facility] Stop: 07/31/17 08:59 Last Admin: 06/11/17 09:18 Dose: Not Given Bisacodyl (Dulcolax 10 Mg Supp) 10 mg RC Q72HR PRN PRN Reason: Constipation Stop: 07/30/17 13:39 [place] Oil/[place] Balsam/Trypsin (Venelex) 1 appl TP BID [facility] Stop: 07/31/17 16:59 Last Admin: 06/11/17 13:19 Dose: 1 appl Cholecalciferol (Vitamin D3) 500 iu PO DAILY [facility] Stop: 07/31/17 08:59 Last Admin: 06/11/17 09:18 Dose: Not Given Diltiazem HCl (Cardizem) 5 mg IVP Q4H PRN PRN Reason: IF HR >120 Stop: 08/10/17 00:44 Last Admin: 06/11/17 00:48 Dose: 5 mg Famotidine (Pepcid) 20 mg IVP Q12H [facility] Stop: 07/31/17 12:44 Last Admin: 06/11/17 13:18 Dose: 20 mg Guaifenesin (Robitussin) 200 mg PO Q4HR PRN PRN Reason: Cough or Congestion Stop: 07/30/17 13:41 Last Admin: 06/10/17 20:59 Dose: 200 mg Heparin Sodium (Porcine) (Heparin) 5,000 units SUBQ Q12H [facility] Stop: 07/31/17 20:59 Last Admin: 06/11/17 09:18 Dose: Not Given Norepinephrine Bitartrate 4 mg (/ Dextrose) 254 mls @ 30.48 mls/hr IV TITR PRN ; Protocol; 8 MCG/MIN PRN Reason: BP MAINTENANCE (PER PROTOCOL) Stop: 07/31/17 16:46 Last Titration: 06/03/17 00:00 Dose: 0 mcg/min, 0 mls/hr Dextrose/Sodium Chloride (D5-0.45ns) 1,000 mls @ 50 mls/hr IV .Q20H [facility] Stop: 08/07/17 16:14 Last Admin: 06/11/17 06:00 Dose: 50 mls/hr Gentamicin Sulfate 160 mg/ (Sodium Chloride) 104 mls @ 100 mls/hr IV Q24HR@ 0900 [facility] Stop: 08/08/17 09:59 Last Infusion: 06/11/17 10:50 Dose: Infused Meropenem 1 gm/ Sodium (Chloride) 100 mls @ 100 mls/hr IV Q8H [facility] Stop: 06/16/17 04:59 Last Admin: 06/11/17 13:20 Dose: 100 mls/hr Ipratropium [place] (Atrovent Neb 0.5mg/2.5ml) 0.5 mg HHN Q4HRT [facility] Stop: 08/06/17 18:59 Last Admin: 06/11/17 11:12 Dose: 0.5 mg Lactulose (Cephulac) 30 gm PO BID [facility] Stop: 08/03/17 16:59 Last Admin: 06/11/17 09:18 Dose: Not Given Methylprednisolone Sodium Succinate (Solu-Medrol) 40 mg IVP Q8HR [facility] Stop: 07/30/17 20:59 Last Admin: 06/11/17 13:18 Dose: 40 mg Midodrine (Proamatine) 5 mg PO TID [facility] Stop: 08/10/17 20:59 Miscellaneous (Vte Chemical Prophylaxis Screen/ Admission) 1 [facility] PRN PRN PRN Reason: PROTOCOL Stop: 07/31/17 14:00 Miscellaneous (Probiotic Screen) 1 [facility] PRN PRN PRN Reason: PROTOCOL Stop: 07/31/17 16:02 Miscellaneous (Gentamicin Iv Per Pharmacy) 1 ea [facility] DAILY [facility] Stop: 08/09/17 08:59 Multivitamins/Vitamin C (Theragran) 1 tab GT DAILY [facility] Stop: 07/31/17 08:59 Last Admin: 06/11/17 09:18 Dose: Not Given Ondansetron HCl (Zofran) 4 mg IV Q8H PRN PRN Reason: Nausea / Vomiting Stop: 07/30/17 13:41 Sodium Phosphate (Fleet Enema) 133 ml RC DAILY PRN PRN Reason: Constipation Stop: 07/30/17 13:39 General: weak, congested HEENT: NC/AT, PERRLA Neck: No LAD, deformity Lungs: congested, rales, ronchi Cardiovascular: RRR, Normal S1, Normal S2, without murmur Abdomen: soft, non-tender, non-distended, +GT, positive bowel sound Extremities: excoriation, ecchymosis, contracture, deformity, atrophy Neurological: unable to follow command - Procedures Procedures: Procedures Procedure Code Date INSERT EMERGENCY AIRWAY 11442 05/31/17 INSERTION OF ENDOTRACHEAL AIRWAY INTO TRACHEA, VIA OPENING [id number] 05/31/17 RESPIRATORY VENTILATION, GREATER THAN 96 CONSECUTIVE HOURS [id number] 05/31/17 VENT MGMT INPAT INIT DAY 50226 05/31/17 Internal Medicine Assmt/Plan - Assessment Assessment: - Assessment Assessment: S/p cardiopulmonary arrest, now extubated lactic acidosis Acute Respiratory Failure Sepsis PNA leukocytosis hypokalemia acute renal insufficiency spastic quadriplegia seizures - Plan Plan: sputum cx vent support inhalation treatments empiric ivantibiotics pulmo follow up continue current plan of care - Plan Plan: see orders for i and d Nutritional Asmnt/Malnutr-PDOC - Dietary Evaluation Malnutrition Findings (Please click <Entered> for more info): Nutritional Asmnt/Malnutrition Start: 06/01/17 17: 31 Text: Status: Complete Freq: Document 06/01/17 17:31 [email or web address] (Rec: 06/01/17 17:45 [email or web address]) Nutritional Asmnt/Malnutrition Patient General Information Nutritional Screening High Risk Consult Diagnosis renal failure, prespiratory failure r/o PNA Pertinent Medical Hx/Surgical Hx dementia, MR anemia, spastic quadriplegia, cerebral palsy, seizure, aspiration PNA, s/p respiratory failure, spsis, hyponatremia, gastroenteritis, PEG Subjective Information Consult received for Anibal 13 and pressure ulcer. Pt seen resting in bed at the time of visit, intubated, non-verbal noted. TF not running at this time. Current Diet Order/ Nutrition Support Isosource 1.5 87ml/hr x 17hr Pertinent Medications vitamin C, vitamin D3, D5w, teragran, piperacillin, miralax, cancomycin Pertinent Labs 06/01 na 160, Cl 120, K 4.1, BUN 29, Cr 0.3, Glucose 242, A1c 5.1, Ca 8.4, Mg 2.8 Nutritional Hx/Data Height 1.68 m Height (Calculated Centimeters) 167.6 Current Weight (lbs) 47.854 kg Weight (Calculated Kilograms) 47.9 Weight (Calculated Grams) 87136.0 [place] Body Weight 142 % [place] Body Weight 94 Body Mass Index (BMI) 17.0 Weight Status Underweight GI Symptoms GI Symptoms None Last BM none Difficult in: None Usual diet at home Jevity 1.5 87ml/hr x 17hr Skin Integrity/Comment: decubitus ulceration to sacrum Estimated Nutritional Goals Calories/Kcals/Kg 25-30 Kcals Calculated 3728-1247 based on IBW 65kg Protein g/k.2-1.4 Protein Calculated 78-91 consider respiratory failure and skin probelm Nutritional Problem 1. Problem Problem excessive intake from enteral feeding Etiology current TF regimen providing excessive calorie and protein than estimated nutritional needs Signs/Symptoms: current TF providing 114% of calorie needs and 110% of protein needs Malnutrition Alert Protein-Calorie Malnutrition N/A Is there a minimum of two criteria No selected? Query Text:Check all the applicable criteria. A minimum of two criteria are recommended for diagnosis of either severe or non-severe malnutrition. Intervention/Recommendation Comments 1. Recommend modify TF rate to 70ml/hr x 17hr to meet 100% of nutritional needs and avoid overfeeding. 2. Monitor TF rate, tolerance, wt weekly, skin integrity and labs 3. F/U as moderate risk in 3-5 days, 04/25-04/27 Expected Outcomes/Goals Expected Outcomes/Goals 1. Pt to meet 75-100% of nutritional needs via nutrition support with tolerance 2. 2. Wt stability, skin to remain intact, labs to approach WNL.
--- NOTE | 2017-06-11 15:59 | Infectious Disease Prog Note ---
Infectious Disease Subjective - Review of Systems Service Date: 06/11/17 Subjective: No fever. Doing better now Infectious Disease Objective - Results Result Diagrams: 06/11/17 06:10 06/11/17 06:10 Recent Labs: Laboratory Last Values WBC 11.5 Th/cmm (4.8-10.8) H D 06/11/17 06:10 RBC 3.18 Mil/cmm (4.30-5.70) L 06/11/17 06:10 Hgb 9.9 gm/dL (12-16) L 06/11/17 06:10 Hct 28.6 % (41.0-60) L 06/11/17 06:10 MCV 90.0 fl (80-99) 06/11/17 06:10 MCH 31.1 pg (26.0-30.0) H 06/11/17 06:10 MCHC Differential 34.5 pg (28.0-36.0) 06/11/17 06:10 RDW 16.3 % (11.5-20.0) 06/11/17 06:10 Plt Count 215 Th/cmm (150-400) 06/11/17 06:10 MPV 7.4 fl 06/11/17 06:10 Neutrophils % 89.7 % (40.0-80.0) H 06/05/17 05:48 Band Neutrophils % 5 % (0-10) 06/07/17 06:30 Lymphocytes % 6.6 % (20.0-50.0) L 06/05/17 05:48 Monocytes % 3.6 % (2.0-10.0) 06/05/17 05:48 Eosinophils % 0.1 % (0.0-5.0) 06/05/17 05:48 Basophils % 0.0 % (0.0-2.0) 06/05/17 05:48 Neutrophils (Manual) 81 % (40-80) H 06/07/17 06:30 Lymphocytes 10 % (20-50) L 06/07/17 06:30 Monocytes 4 % (2-10) 06/07/17 06:30 Platelet Estimate ADEQUATE (NORMAL) 06/07/17 06:30 PT 11.3 SECONDS (9.5-11.5) 06/11/17 06:10 INR 1.09 (0.5-1.4) 06/11/17 06:10 PTT (Actin FS) 23.1 SECONDS (26.0-38.0) L 06/11/17 06:10 Specimen Source Arterial 06/07/17 13:05 Sample Site Right Radial 06/07/17 13:05 pH 7.52 (7.35-7.45) H 06/07/17 13:05 pCO2 45.0 mmHg (35.0-45.0) 06/07/17 13:05 pO2 95.0 mmHg (80.0-100.0) 06/07/17 13:05 HCO3 34.6 mEq/L (20.0-26.0) H 06/07/17 13:05 Base Excess 12.4 mEq/L (-3.0-3.0) H 06/07/17 13:05 O2 Saturation 98.0 % (92.0-100.0) 06/07/17 13:05 Endy Test YES 06/07/17 13:05 Vent Rate NA 06/07/17 13:05 Inspired O2 40 06/07/17 13:05 Tidal Volume NA 06/07/17 13:05 PEEP NA 06/07/17 13:05 Pressure (ins/psv/peep) NA 06/07/17 13:05 Critical Value E.BABCOCK 06/07/17 13:05 Sodium 137 mEq/L (136-145) 06/11/17 06:10 Potassium 4.1 mEq/L (3.5-5.1) 06/11/17 06:10 Chloride 103 mEq/L (98-107) 06/11/17 06:10 Carbon Dioxide 30.7 mEq/L (21.0-31.0) 06/11/17 06:10 Anion Gap 7.4 (7.0-16.0) 06/11/17 06:10 BUN 24 mg/dL (7-25) 06/11/17 06:10 Creatinine 0.2 mg/dL (0.7-1.3) L 06/11/17 06:10 Est GFR ( Amer) > 60.0 ml/min (>90) 06/11/17 06:10 Est GFR (Non-Af Amer) > 60.0 ml/min 06/11/17 06:10 BUN/Creatinine Ratio 120.0 06/11/17 06:10 Glucose 118 mg/dL (70-105) H 06/11/17 06:10 POC Glucose 213 MG/DL (70 - 105) H 06/01/17 06:53 Hemoglobin A1c % 5.1 % (4.0-6.0) 06/01/17 05:30 Whole Bld Lactic Acid 3.45 mmol/L (0.60-1.99) H* 06/03/17 06:45 Calcium 7.8 mg/dL (8.6-10.3) L 06/11/17 06:10 Magnesium 2.1 mg/dL (1.9-2.7) 06/07/17 06:30 Total Bilirubin 0.6 mg/dL (0.3-1.0) 06/10/17 06:20 AST 38 U/L (13-39) 06/10/17 06:20 ALT 90 U/L (7-52) H 06/10/17 06:20 Alkaline Phosphatase 69 U/L (34-104) 06/10/17 06:20 Ammonia 64 umol/L (16-53) H 06/04/17 06:45 B-Natriuretic Peptide 129.0 pg/mL (5.0-100.0) H 06/04/17 06:45 Total Protein 4.3 gm/dL (6.0-8.3) L 06/10/17 06:20 Albumin 2.1 gm/dL (4.2-5.5) L 06/10/17 06:20 Globulin 2.2 gm/dL 06/10/17 06:20 Albumin/Globulin Ratio 1.0 (1.0-1.8) 06/10/17 06:20 TSH 0.72 uIU/ml (0.34-5.60) 06/01/17 05:30 Urine Source CATH 05/31/17 12:35 Urine Color YELLOW 05/31/17 12:35 Urine Clarity CLOUDY (CLEAR) 05/31/17 12:35 Urine pH 8.5 (4.6 - 8.0) 05/31/17 12:35 Ur Specific [place] 1.010 (1.005-1.030) 05/31/17 12:35 Urine Protein 30 mg/dL (NEGATIVE) H 05/31/17 12:35 Urine Glucose (UA) NEGATIVE mg/dL (NEGATIVE) 05/31/17 12:35 Urine Ketones NEGATIVE mg/dL (NEGATIVE) 05/31/17 12:35 Urine Blood MODERATE (NEGATIVE) H 05/31/17 12:35 Urine Nitrate NEGATIVE (NEGATIVE) 05/31/17 12:35 Urine Bilirubin NEGATIVE (NEGATIVE) 05/31/17 12:35 Urine Urobilinogen 0.2 E.U./dL (0.2 - 1.0) 05/31/17 12:35 Ur Leukocyte Esterase NEGATIVE (NEGATIVE) 05/31/17 12:35 Urine RBC >100 /hpf (0-5) H 05/31/17 12:35 Urine WBC 2-5 /hpf (0-5) H 05/31/17 12:35 Ur Epithelial Cells NONE SEEN /lpf (FEW) 05/31/17 12:35 Urine Bacteria NONE SEEN /hpf (NONE SEEN) 05/31/17 12:35 Stool Occult Blood NEGATIVE (NEGATIVE) 06/05/17 06:00 Gentamicin Peak 13.8 ug/ml (4.0-8.0) H 06/11/17 11:05 Gentamicin Trough 0.8 ug/ml (0.2-2.0) 06/11/17 08:00 Vancomycin Trough 10.7 ug/mL (10-20) 06/04/17 09:00 Hepatitis A IgM Ab Negative (Negative) 06/10/17 06:20 Hep Bs Antigen Negative (Negative) 06/10/17 06:20 Hep B Core IgM Ab Negative (Negative) 06/10/17 06:20 Hepatitis C Antibody 6.9 s/co ratio (0.0-0.9) H 06/10/17 06:20 Influenza A (Rapid) NEG FOR INF A 06/05/17 08:00 Influenza B (Rapid) NEG FOR INF B 06/05/17 08:00 Blood Type O POSITIVE 06/02/17 11:40 Antibody Screen NEGATIVE 06/02/17 11:40 Crossmatch See Detail 06/02/17 11:40 - Physical Exam Vitals and I&O: Vital Signs Temp 97.7 F 06/11/17 08:00 Pulse 103 06/11/17 15:16 Resp 14 06/11/17 15:16 BP 96/55 06/11/17 14:00 Pulse Ox 98 06/11/17 15:16 Intake & Output 06/10/17 06/11/17 06/11/17 18:59 06:59 18:59 Intake Total 1134 2822 104 Output Total 1100 1000 Balance 34 1822 104 Weight (lbs) 62.397 kg 62.397 kg Intake: Intake, IV Amount 299 1200 104 D5-0.45NS 1,000 ml @ 50 95 1000 mls/hr IV .Q20H [facility] Rx#: [id number] Gentamicin 160 mg In 104 104 Sodium Chloride 0.9% 100 ml @ 100 mls/hr IV Q24HR@ 0900 [facility] Rx#:[id number] Meropenem 1 gm In 100 100 Dextrose 5% 100 ml @ 100 mls/hr IV Q8HR [facility] Rx#: [id number] Meropenem 1 gm In Sodium 100 Chloride 0.9% 100 ml @ 100 mls/hr IV Q8H [facility] Rx# :[id number] Oral 0 Tube Feeding 435 522 Albumin 100 Other 400 1000 Output: Urine 1100 1000 Other: # Bowel Movements 1 1 Stool Characteristics Liquid Soft Brown Brown Active Medications: Current Medications Acetaminophen (Tylenol 650mg Supp) 650 mg RC Q4HR PRN PRN Reason: FEVER >100.1 Stop: 07/30/17 13:39 Acetaminophen (Tylenol) 325 mg PO Q6H PRN PRN Reason: PAIN/FEVER Stop: 07/30/17 16:47 Last Admin: 06/10/17 20:59 Dose: 325 mg Acetylcysteine (Mucomyst 10%) 6 ml HHN Q4HRT [facility] Stop: 08/08/17 14:59 Last Admin: 06/11/17 15:16 Dose: 6 ml Albuterol Sulfate (Albuterol 2.5mg/3ml Neb Ud) 1.25 mg HHN Q4HRT [facility] Stop: 08/06/17 18:59 Last Admin: 06/11/17 15:15 Dose: 1.25 mg Ascorbic Acid (Vitamin C) 500 mg GT DAILY [facility] Stop: 07/31/17 08:59 Last Admin: 06/11/17 09:18 Dose: Not Given Bisacodyl (Dulcolax 10 Mg Supp) 10 mg RC Q72HR PRN PRN Reason: Constipation Stop: 07/30/17 13:39 [place] Oil/[place] Balsam/Trypsin (Venelex) 1 appl TP BID [facility] Stop: 07/31/17 16:59 Last Admin: 06/11/17 13:19 Dose: 1 appl Cholecalciferol (Vitamin D3) 500 iu PO DAILY [facility] Stop: 07/31/17 08:59 Last Admin: 06/11/17 09:18 Dose: Not Given Diltiazem HCl (Cardizem) 5 mg IVP Q4H PRN PRN Reason: IF HR >120 Stop: 08/10/17 00:44 Last Admin: 06/11/17 00:48 Dose: 5 mg Famotidine (Pepcid) 20 mg IVP Q12H [facility] Stop: 07/31/17 12:44 Last Admin: 06/11/17 13:18 Dose: 20 mg Guaifenesin (Robitussin) 200 mg PO Q4HR PRN PRN Reason: Cough or Congestion Stop: 07/30/17 13:41 Last Admin: 06/10/17 20:59 Dose: 200 mg Heparin Sodium (Porcine) (Heparin) 5,000 units SUBQ Q12H [facility] Stop: 07/31/17 20:59 Last Admin: 06/11/17 09:18 Dose: Not Given Norepinephrine Bitartrate 4 mg (/ Dextrose) 254 mls @ 30.48 mls/hr IV TITR PRN ; Protocol; 8 MCG/MIN PRN Reason: BP MAINTENANCE (PER PROTOCOL) Stop: 07/31/17 16:46 Last Titration: 06/03/17 00:00 Dose: 0 mcg/min, 0 mls/hr Dextrose/Sodium Chloride (D5-0.45ns) 1,000 mls @ 50 mls/hr IV .Q20H [facility] Stop: 08/07/17 16:14 Last Admin: 06/11/17 06:00 Dose: 50 mls/hr Gentamicin Sulfate 160 mg/ (Sodium Chloride) 104 mls @ 100 mls/hr IV Q24HR@ 0900 [facility] Stop: 08/08/17 09:59 Last Infusion: 06/11/17 10:50 Dose: Infused Meropenem 1 gm/ Sodium (Chloride) 100 mls @ 100 mls/hr IV Q8H [facility] Stop: 06/16/17 04:59 Last Admin: 06/11/17 13:20 Dose: 100 mls/hr Ipratropium [place] (Atrovent Neb 0.5mg/2.5ml) 0.5 mg HHN Q4HRT [facility] Stop: 08/06/17 18:59 Last Admin: 06/11/17 15:15 Dose: 0.5 mg Lactulose (Cephulac) 30 gm PO BID [facility] Stop: 08/03/17 16:59 Last Admin: 06/11/17 09:18 Dose: Not Given Methylprednisolone Sodium Succinate (Solu-Medrol) 40 mg IVP Q8HR [facility] Stop: 07/30/17 20:59 Last Admin: 06/11/17 13:18 Dose: 40 mg Midodrine (Proamatine) 5 mg PO TID [facility] Stop: 08/10/17 20:59 Miscellaneous (Vte Chemical Prophylaxis Screen/ Admission) 1 [facility] PRN PRN PRN Reason: PROTOCOL Stop: 07/31/17 14:00 Miscellaneous (Probiotic Screen) 1 [facility] PRN PRN PRN Reason: PROTOCOL Stop: 07/31/17 16:02 Miscellaneous (Gentamicin Iv Per Pharmacy) 1 ea DAILY [facility] Stop: 08/09/17 08:59 Multivitamins/Vitamin C (Theragran) 1 tab GT DAILY [facility] Stop: 07/31/17 08:59 Last Admin: 06/11/17 09:18 Dose: Not Given Ondansetron HCl (Zofran) 4 mg IV Q8H PRN PRN Reason: Nausea / Vomiting Stop: 07/30/17 13:41 Sodium Phosphate (Fleet Enema) 133 ml RC DAILY PRN PRN Reason: Constipation Stop: 07/30/17 13:39 General: no acute distress, well developed, well nourished HEENT: atraumatic, normocephalic, PERRLA, EOMI Neck: supple, no thyromegaly Cardiovascular: S1S2, regular Lungs: clear to percussion, rhonchi Abdomen: soft, no tender, no distended, no mass Extremities: no cyanosis, no clubbing, no edema Neurological: awake, alert Skin: other (sacral wound) - Procedures Procedures: Procedures Procedure Code Date INSERT EMERGENCY AIRWAY 53573 05/31/17 INSERTION OF ENDOTRACHEAL AIRWAY INTO [place]ACHEA, VIA OPENING [id number] 05/31/17 RESPIRATORY VENTILATION, GREATER THAN 96 CONSECUTIVE HOURS [id number] 05/31/17 VENT MGMT INPAT INIT DAY [id number] 05/31/17 Infectious Disease Assmt/Plan - Problem List Patient Problems: All Active Problems COUGH AND CONGESTION (Acute) - Assessment Assessment: 1. Sepsis. 2. G Tube site ESBL + E coli. 3. Pneumonia. 4. Acute respiratory failure and went dependence. 5. Altered mental status unresponsiveness, likely secondary to toxic metabolic encephalopathy. improving. 6. Cerebral palsy. 7. Aspiration again. - Plan Plan: Continue meropenem for 4 more days. Nutritional Asmnt/Malnutr-PDOC - Dietary Evaluation Malnutrition Findings (Please click <Entered> for more info): Nutritional Asmnt/Malnutrition Start: 06/01/17 17: 31 Text: Status: Complete Freq: Document 06/01/17 17:31 LCHENG (Rec: 06/01/17 17:45 [email or web address] [id number]) Nutritional Asmnt/Malnutrition Patient General Information Nutritional Screening High Risk Consult Diagnosis renal failure, prespiratory failure r/o PNA Pertinent Medical Hx/Surgical Hx dementia, MR anemia, spastic quadriplegia, cerebral palsy, seizure, aspiration PNA, s/p respiratory failure, spsis, hyponatremia, gastroenteritis, PEG Subjective Information Consult received for [place] 13 and pressure ulcer. Pt seen resting in bed at the time of visit, intubated, non-verbal noted. TF not running at this time. Current Diet Order/ Nutrition Support Isosource 1.5 87ml/hr x 17hr Pertinent Medications vitamin C, vitamin D3, D5w, teragran, piperacillin, miralax, cancomycin Pertinent Labs 06/01 na 160, Cl 120, K 4.1, BUN 29, Cr 0.3, Glucose 242, A1c 5.1, Ca 8.4, Mg 2.8 Nutritional Hx/Data Height 1.68 m Height (Calculated Centimeters) 167.6 Current Weight (lbs) 47.854 kg Weight (Calculated Kilograms) 47.9 Weight (Calculated Grams) 63694.0 [place] Body Weight 142 % [place] Body Weight 94 Body Mass Index (BMI) 17.0 Weight Status Underweight GI Symptoms GI Symptoms None Last BM none Difficult in: None Usual diet at home Jevity 1.5 87ml/hr x 17hr Skin Integrity/Comment: decubitus ulceration to sacrum Estimated Nutritional Goals Calories/Kcals/Kg 25-30 Kcals Calculated [id number] based on IBW 65kg Protein g/k.2-1.4 Protein Calculated 78-91 consider respiratory failure and skin probelm Nutritional Problem 1. Problem Problem excessive intake from enteral feeding Etiology current TF regimen providing excessive calorie and protein than estimated nutritional needs Signs/Symptoms: current TF providing 114% of calorie needs and 110% of protein needs Malnutrition Alert Protein-Calorie Malnutrition N/A Is there a minimum of two criteria No selected? Query Text:Check all the applicable criteria. A minimum of two criteria are recommended for diagnosis of either severe or non-severe malnutrition. Intervention/Recommendation Comments 1. Recommend modify TF rate to 70ml/hr x 17hr to meet 100% of nutritional needs and avoid overfeeding. 2. Monitor TF rate, tolerance, wt weekly, skin integrity and labs 3. F/U as moderate risk in 3-5 days, 04/25-04/27 Expected Outcomes/Goals Expected Outcomes/Goals 1. Pt to meet 75-100% of nutritional needs via nutrition support with tolerance 2. 2. Wt stability, skin to remain intact, labs to approach WNL.
[2017-06-12] MEDS: Acetylcysteine 10% 10 ML VIAL HHN SCH ×6 (02:35→23:36)
[2017-06-12] MEDS: Albuterol Nebulizer 2.5mg/3mL HHN SCH ×6 (02:36→23:36)
[2017-06-12] MEDS: Ipratropium Neb 0.5 mg/2.5 mL UD HHN SCH ×6 (02:36→23:36)
[2017-06-12] MEDS: Diltiazem 5 mg/mL 5mL Vial IVP PRN (02:57)
[2017-06-12] MEDS: Meropenem 1 GM in Sodium Chloride 0.9% 100 ML IV SCH ×3 (04:00→20:33)
[2017-06-12] MEDS: methylPREDNISolone SS 40 mg Vial IVP SCH ×3 (04:00→20:33)
[2017-06-12] MEDS: D5-0.45NS 1,000 ML IV SCH (06:33)
[2017-06-12] MEDS: Multivitamin Tab GT SCH (09:29)
[2017-06-12] MEDS: Lactulose 10 Gm/15 mL 30mL UDC PO SCH ×2 (09:31→18:22)
[2017-06-12] MEDS: Venelex 60gm Tube TP SCH ×2 (13:48→18:24)
--- NOTE | 2017-06-12 17:04 | Internal Medicine Prog Note ---
Internal Medicine Subjective - Subjective Service Date: 06/12/17 Patient is:: awake, non-verbal, non-interactive, in bed, other Patient Complaints of:: congestion Per staff patient has:: no adverse event, tolerating meds Internal Medicine Objective - Results Result Diagrams: 06/11/17 06:10 06/11/17 06:10 Recent Labs: Laboratory Last Values WBC 11.5 Th/cmm (4.8-10.8) H D 06/11/17 06:10 RBC 3.18 Mil/cmm (4.30-5.70) L 06/11/17 06:10 Hgb 9.9 gm/dL (12-16) L 06/11/17 06:10 Hct 28.6 % (41.0-60) L 06/11/17 06:10 MCV 90.0 fl (80-99) 06/11/17 06:10 MCH 31.1 pg (26.0-30.0) H 06/11/17 06:10 MCHC Differential 34.5 pg (28.0-36.0) 06/11/17 06:10 RDW 16.3 % (11.5-20.0) 06/11/17 06:10 Plt Count 215 Th/cmm (150-400) 06/11/17 06:10 MPV 7.4 fl 06/11/17 06:10 Neutrophils % 89.7 % (40.0-80.0) H 06/05/17 05:48 Band Neutrophils % 5 % (0-10) 06/07/17 06:30 Lymphocytes % 6.6 % (20.0-50.0) L 06/05/17 05:48 Monocytes % 3.6 % (2.0-10.0) 06/05/17 05:48 Eosinophils % 0.1 % (0.0-5.0) 06/05/17 05:48 Basophils % 0.0 % (0.0-2.0) 06/05/17 05:48 Neutrophils (Manual) 81 % (40-80) H 06/07/17 06:30 Lymphocytes 10 % (20-50) L 06/07/17 06:30 Monocytes 4 % (2-10) 06/07/17 06:30 Platelet Estimate ADEQUATE (NORMAL) 06/07/17 06:30 PT 11.3 SECONDS (9.5-11.5) 06/11/17 06:10 INR 1.09 (0.5-1.4) 06/11/17 06:10 PTT (Actin FS) 23.1 SECONDS (26.0-38.0) L 06/11/17 06:10 Specimen Source Arterial 06/07/17 13:05 Sample Site Right Radial 06/07/17 13:05 pH 7.52 (7.35-7.45) H 06/07/17 13:05 pCO2 45.0 mmHg (35.0-45.0) 06/07/17 13:05 pO2 95.0 mmHg (80.0-100.0) 06/07/17 13:05 HCO3 34.6 mEq/L (20.0-26.0) H 06/07/17 13:05 Base Excess 12.4 mEq/L (-3.0-3.0) H 06/07/17 13:05 O2 Saturation 98.0 % (92.0-100.0) 06/07/17 13:05 Endy Test YES 06/07/17 13:05 Vent Rate NA 06/07/17 13:05 Inspired O2 40 06/07/17 13:05 Tidal Volume NA 06/07/17 13:05 PEEP NA 06/07/17 13:05 Pressure (ins/psv/peep) NA 06/07/17 13:05 Critical Value E.BABCOCK 06/07/17 13:05 Sodium 137 mEq/L (136-145) 06/11/17 06:10 Potassium 4.1 mEq/L (3.5-5.1) 06/11/17 06:10 Chloride 103 mEq/L (98-107) 06/11/17 06:10 Carbon Dioxide 30.7 mEq/L (21.0-31.0) 06/11/17 06:10 Anion Gap 7.4 (7.0-16.0) 06/11/17 06:10 BUN 24 mg/dL (7-25) 06/11/17 06:10 Creatinine 0.2 mg/dL (0.7-1.3) L 06/11/17 06:10 Est GFR ( Amer) > 60.0 ml/min (>90) 06/11/17 06:10 Est GFR (Non-Af Amer) > 60.0 ml/min 06/11/17 06:10 BUN/Creatinine Ratio 120.0 06/11/17 06:10 Glucose 118 mg/dL (70-105) H 06/11/17 06:10 POC Glucose 213 MG/DL (70 - 105) H 06/01/17 06:53 Hemoglobin A1c % 5.1 % (4.0-6.0) 06/01/17 05:30 Whole Bld Lactic Acid 3.45 mmol/L (0.60-1.99) H* 06/03/17 06:45 Calcium 7.8 mg/dL (8.6-10.3) L 06/11/17 06:10 Magnesium 2.1 mg/dL (1.9-2.7) 06/07/17 06:30 Total Bilirubin 0.6 mg/dL (0.3-1.0) 06/10/17 06:20 AST 38 U/L (13-39) 06/10/17 06:20 ALT 90 U/L (7-52) H 06/10/17 06:20 Alkaline Phosphatase 69 U/L (34-104) 06/10/17 06:20 Ammonia 64 umol/L (16-53) H 06/04/17 06:45 B-Natriuretic Peptide 129.0 pg/mL (5.0-100.0) H 06/04/17 06:45 Total Protein 4.3 gm/dL (6.0-8.3) L 06/10/17 06:20 Albumin 2.1 gm/dL (4.2-5.5) L 06/10/17 06:20 Globulin 2.2 gm/dL 06/10/17 06:20 Albumin/Globulin Ratio 1.0 (1.0-1.8) 06/10/17 06:20 TSH 0.72 uIU/ml (0.34-5.60) 06/01/17 05:30 Urine Source CATH 05/31/17 12:35 Urine Color YELLOW 05/31/17 12:35 Urine Clarity CLOUDY (CLEAR) 05/31/17 12:35 Urine pH 8.5 (4.6 - 8.0) 05/31/17 12:35 Ur Specific [place] 1.010 (1.005-1.030) 05/31/17 12:35 Urine Protein 30 mg/dL (NEGATIVE) H 05/31/17 12:35 Urine Glucose (UA) NEGATIVE mg/dL (NEGATIVE) 05/31/17 12:35 Urine Ketones NEGATIVE mg/dL (NEGATIVE) 05/31/17 12:35 Urine Blood MODERATE (NEGATIVE) H 05/31/17 12:35 Urine Nitrate NEGATIVE (NEGATIVE) 05/31/17 12:35 Urine Bilirubin NEGATIVE (NEGATIVE) 05/31/17 12:35 Urine Urobilinogen 0.2 E.U./dL (0.2 - 1.0) 05/31/17 12:35 Ur Leukocyte Esterase NEGATIVE (NEGATIVE) 05/31/17 12:35 Urine RBC >100 /hpf (0-5) H 05/31/17 12:35 Urine WBC 2-5 /hpf (0-5) H 05/31/17 12:35 Ur Epithelial Cells NONE SEEN /lpf (FEW) 05/31/17 12:35 Urine Bacteria NONE SEEN /hpf (NONE SEEN) 05/31/17 12:35 Stool Occult Blood NEGATIVE (NEGATIVE) 06/05/17 06:00 Gentamicin Peak 13.8 ug/ml (4.0-8.0) H 06/11/17 11:05 Gentamicin Trough 0.8 ug/ml (0.2-2.0) 06/11/17 08:00 Vancomycin Trough 10.7 ug/mL (10-20) 06/04/17 09:00 Hepatitis A IgM Ab Negative (Negative) 06/10/17 06:20 Hep Bs Antigen Negative (Negative) 06/10/17 06:20 Hep B Core IgM Ab Negative (Negative) 06/10/17 06:20 Hepatitis C Antibody 6.9 s/co ratio (0.0-0.9) H 06/10/17 06:20 Influenza A (Rapid) NEG FOR INF A 06/05/17 08:00 Influenza B (Rapid) NEG FOR INF B 06/05/17 08:00 Blood Type O POSITIVE 06/02/17 11:40 Antibody Screen NEGATIVE 06/02/17 11:40 Crossmatch See Detail 06/02/17 11:40 - Physical Exam Vitals and I&O: Vital Signs Temp 98.1 F 06/12/17 12:00 Pulse 104 06/12/17 15:37 Resp 21 06/12/17 15:37 BP 105/62 06/12/17 12:00 Pulse Ox 92 06/12/17 15:37 Intake & Output 06/11/17 06/12/17 06/12/17 18:59 06:59 18:59 Intake Total 744 2000 Output Total 840 900 Balance -96 1100 Weight (lbs) 137 lb 9 oz 137 lb Intake: Intake, IV Amount 204 1200 D5-0.45NS 1,000 ml @ 50 1000 mls/hr IV .Q20H [facility] Rx#: [id number] Gentamicin 160 mg In 104 Sodium Chloride 0.9% 100 ml @ 100 mls/hr IV Q24HR@ 0900 [facility] Rx#:[id number] Meropenem 1 gm In Sodium 100 200 Chloride 0.9% 100 ml @ 100 mls/hr IV Q8H [facility] Rx# :[id number] Oral 0 Tube Feeding 480 800 Other 60 Output: Urine 840 900 Other: # Bowel Movements 1 1 Active Medications: Current Medications Acetaminophen (Tylenol 650mg Supp) 650 mg RC Q4HR PRN PRN Reason: FEVER >100.1 Stop: 07/30/17 13:39 Acetaminophen (Tylenol) 325 mg PO Q6H PRN PRN Reason: PAIN/FEVER Stop: 07/30/17 16:47 Last Admin: 06/11/17 22:06 Dose: 325 mg Acetylcysteine (Mucomyst 10%) 6 ml HHN Q4HRT [facility] Stop: 08/08/17 14:59 Last Admin: 06/12/17 15:36 Dose: 6 ml Albuterol Sulfate (Albuterol 2.5mg/3ml Neb Ud) 1.25 mg HHN Q4HRT [facility] Stop: 08/06/17 18:59 Last Admin: 06/12/17 15:36 Dose: 1.25 mg Ascorbic Acid (Vitamin C) 500 mg GT DAILY [facility] Stop: 07/31/17 08:59 Last Admin: 06/12/17 09:29 Dose: 500 mg Bisacodyl (Dulcolax 10 Mg Supp) 10 mg RC Q72HR PRN PRN Reason: Constipation Stop: 07/30/17 13:39 Temple Oil/Faroese Balsam/Trypsin (Venelex) 1 appl TP BID [facility] Stop: 07/31/17 16:59 Last Admin: 06/12/17 13:48 Dose: 1 appl Cholecalciferol (Vitamin D3) 500 iu PO DAILY [facility] Stop: 07/31/17 08:59 Last Admin: 06/12/17 09:29 Dose: 500 iu Diltiazem HCl (Cardizem) 5 mg IVP Q4H PRN PRN Reason: IF HR >120 Stop: 08/10/17 00:44 Last Admin: 06/12/17 02:57 Dose: 5 mg Famotidine (Pepcid) 20 mg IVP Q12H [facility] Stop: 07/31/17 12:44 Last Admin: 06/12/17 12:11 Dose: 20 mg Guaifenesin (Robitussin) 200 mg PO Q4HR PRN PRN Reason: Cough or Congestion Stop: 07/30/17 13:41 Last Admin: 06/10/17 20:59 Dose: 200 mg Heparin Sodium (Porcine) (Heparin) 5,000 units SUBQ Q12H [facility] Stop: 07/31/17 20:59 Last Admin: 06/12/17 09:31 Dose: 5,000 units Norepinephrine Bitartrate 4 mg (/ Dextrose) 254 mls @ 30.48 mls/hr IV TITR PRN ; Protocol; 8 MCG/MIN PRN Reason: BP MAINTENANCE (PER PROTOCOL) Stop: 07/31/17 16:46 Last Titration: 06/03/17 00:00 Dose: 0 mcg/min, 0 mls/hr Dextrose/Sodium Chloride (D5-0.45ns) 1,000 mls @ 50 mls/hr IV .Q20H [facility] Stop: 08/07/17 16:14 Last Admin: 06/12/17 06:33 Dose: 50 mls/hr Meropenem 1 gm/ Sodium (Chloride) 100 mls @ 100 mls/hr IV Q8H [facility] Stop: 06/16/17 04:59 Last Admin: 06/12/17 12:12 Dose: 100 mls/hr Gentamicin Sulfate 130 mg/ (Sodium Chloride) 103.25 mls @ 100 mls/hr IV Q24H [facility] Stop: 08/11/17 08:59 Last Admin: 06/12/17 09:30 Dose: 100 mls/hr Ipratropium [place] (Atrovent Neb 0.5mg/2.5ml) 0.5 mg HHN Q4HRT [facility] Stop: 08/06/17 18:59 Last Admin: 06/12/17 15:36 Dose: 0.5 mg Lactulose (Cephulac) 30 gm PO BID [facility] Stop: 08/03/17 16:59 Last Admin: 06/12/17 09:31 Dose: 30 gm Methylprednisolone Sodium Succinate (Solu-Medrol) 40 mg IVP Q8HR [facility] Stop: 07/30/17 20:59 Last Admin: 06/12/17 12:12 Dose: 40 mg Midodrine (Proamatine) 5 mg PO TID [facility] Stop: 08/10/17 20:59 Last Admin: 06/12/17 13:42 Dose: 5 mg Miscellaneous (Vte Chemical Prophylaxis Screen/ Admission) 1 [facility] PRN PRN PRN Reason: PROTOCOL Stop: 07/31/17 14:00 Miscellaneous (Probiotic Screen) 1 [facility] PRN PRN PRN Reason: PROTOCOL Stop: 07/31/17 16:02 Miscellaneous (Gentamicin Iv Per Pharmacy) 1 ea DAILY [facility] Stop: 08/09/17 08:59 Multivitamins/Vitamin C (Theragran) 1 tab GT DAILY [facility] Stop: 07/31/17 08:59 Last Admin: 06/12/17 09:29 Dose: 1 tab Ondansetron HCl (Zofran) 4 mg IV Q8H PRN PRN Reason: Nausea / Vomiting Stop: 07/30/17 13:41 Sodium Phosphate (Fleet Enema) 133 ml RC DAILY PRN PRN Reason: Constipation Stop: 07/30/17 13:39 General: weak, congested HEENT: NC/AT, PERRLA Neck: No LAD, deformity Lungs: congested, rales, ronchi Cardiovascular: RRR, Normal S1, Normal S2, without murmur Abdomen: soft, non-tender, non-distended, +GT, positive bowel sound Extremities: excoriation, ecchymosis, contracture, deformity, atrophy Neurological: unable to follow command - Procedures Procedures: Procedures Procedure Code Date INSERT EMERGENCY AIRWAY 42890 05/31/17 INSERTION OF ENDOTRACHEAL AIRWAY INTO [place]HE[place], VIA OPENING [id number] 05/31/17 RESPIRATORY VENTILATION, GREATER THAN 96 CONSECUTIVE HOURS [id number] 05/31/17 VENT MGMT INPAT IN DAY 06155 05/31/17 Internal Medicine Assmt/Plan - Assessment Assessment: S/p cardiopulmonary arrest, now intubated on vent lactic acidosis Acute Respiratory Failure Sepsis PNA leukocytosis hypokalemia acute renal insufficiency spastic quadriplegia seizures - Plan Plan: may need LTAC eval aspiration precautions inhalation treatments empiric ivantibiotics pulmo follow up continue current plan of care Nutritional Asmnt/Malnutr-PDOC - Dietary Evaluation Malnutrition Findings (Please click <Entered> for more info): Nutritional Asmnt/Malnutrition Start: 06/01/17 17: 31 Text: Status: Complete Freq: Document 06/01/17 17:31 LCHENG (Rec: 06/01/17 17:45 LCHEN [id number]) Nutritional Asmnt/Malnutrition Patient General Information Nutritional Screening High Risk Consult Diagnosis renal failure, prespiratory failure r/o PNA Pertinent Medical Hx/Surgical Hx dementia, MR anemia, spastic quadriplegia, cerebral palsy, seizure, aspiration PNA, s/p respiratory failure, spsis, hyponatremia, gastroenteritis, PEG Subjective Information Consult received for Anibal 13 and pressure ulcer. Pt seen resting in bed at the time of visit, intubated, non-verbal noted. TF not running at this time. Current Diet Order/ Nutrition Support Isosource 1.5 87ml/hr x 17hr Pertinent Medications vitamin C, vitamin D3, D5w, teragran, piperacillin, miralax, cancomycin Pertinent Labs 1/ na 160, Cl 120, K 4.1, BUN 29, Cr 0.3, Glucose 242, A1c 5.1, Ca 8.4, Mg 2.8 Nutritional Hx/Data Height 5 ft 6 in Height (Calculated Centimeters) 167.6 Current Weight (lbs) 105 lb 8 oz Weight (Calculated Kilograms) 47.9 Weight (Calculated Grams) 42046.0 [place] Body Weight 142 % [place] Body Weight 94 Body Mass Index (BMI) 17.0 Weight Status Underweight GI Symptoms GI Symptoms None Last BM none Difficult in: None Usual diet at home Jevity 1.5 87ml/hr x 17hr Skin Integrity/Comment: decubitus ulceration to sacrum Estimated Nutritional Goals Calories/Kcals/Kg 25-30 Kcals Calculated [id number] based on IBW 65kg Protein g/k.2-1.4 Protein Calculated 78-91 consider respiratory failure and skin probelm Nutritional Problem 1. Problem Problem excessive intake from enteral feeding Etiology current TF regimen providing excessive calorie and protein than estimated nutritional needs Signs/Symptoms: current TF providing 114% of calorie needs and 110% of protein needs Malnutrition Alert Protein-Calorie Malnutrition N/A Is there a minimum of two criteria No selected? Query Text:Check all the applicable criteria. A minimum of two criteria are recommended for diagnosis of either severe or non-severe malnutrition. Intervention/Recommendation Comments 1. Recommend modify TF rate to 70ml/hr x 17hr to meet 100% of nutritional needs and avoid overfeeding. 2. Monitor TF rate, tolerance, wt weekly, skin integrity and labs 3. F/U as moderate risk in 3-5 days, 04/25-04/27 Expected Outcomes/Goals Expected Outcomes/Goals 1. Pt to meet 75-100% of nutritional needs via nutrition support with tolerance 2. 2. Wt stability, skin to remain intact, labs to approach WNL.
[2017-06-13] MEDS: Diltiazem 5 mg/mL 5mL Vial IVP PRN ×2 (01:23→18:11)
--- NOTE | 2017-06-13 01:38 | Infectious Disease Prog Note ---
Infectious Disease Subjective - Review of Systems Service Date: 06/13/17 Subjective: No fever. Doing better now Infectious Disease Objective - Results Result Diagrams: 06/11/17 06:10 06/11/17 06:10 Recent Labs: Laboratory Last Values WBC 11.5 Th/cmm (4.8-10.8) H D 06/11/17 06:10 RBC 3.18 Mil/cmm (4.30-5.70) L 06/11/17 06:10 Hgb 9.9 gm/dL (12-16) L 06/11/17 06:10 Hct 28.6 % (41.0-60) L 06/11/17 06:10 MCV 90.0 fl (80-99) 06/11/17 06:10 MCH 31.1 pg (26.0-30.0) H 06/11/17 06:10 MCHC Differential 34.5 pg (28.0-36.0) 06/11/17 06:10 RDW 16.3 % (11.5-20.0) 06/11/17 06:10 Plt Count 215 Th/cmm (150-400) 06/11/17 06:10 MPV 7.4 fl 06/11/17 06:10 Neutrophils % 89.7 % (40.0-80.0) H 06/05/17 05:48 Band Neutrophils % 5 % (0-10) 06/07/17 06:30 Lymphocytes % 6.6 % (20.0-50.0) L 06/05/17 05:48 Monocytes % 3.6 % (2.0-10.0) 06/05/17 05:48 Eosinophils % 0.1 % (0.0-5.0) 06/05/17 05:48 Basophils % 0.0 % (0.0-2.0) 06/05/17 05:48 Neutrophils (Manual) 81 % (40-80) H 06/07/17 06:30 Lymphocytes 10 % (20-50) L 06/07/17 06:30 Monocytes 4 % (2-10) 06/07/17 06:30 Platelet Estimate ADEQUATE (NORMAL) 06/07/17 06:30 PT 11.3 SECONDS (9.5-11.5) 06/11/17 06:10 INR 1.09 (0.5-1.4) 06/11/17 06:10 PTT (Actin FS) 23.1 SECONDS (26.0-38.0) L 06/11/17 06:10 Specimen Source Arterial 06/07/17 13:05 Sample Site Right Radial 06/07/17 13:05 pH 7.52 (7.35-7.45) H 06/07/17 13:05 pCO2 45.0 mmHg (35.0-45.0) 06/07/17 13:05 pO2 95.0 mmHg (80.0-100.0) 06/07/17 13:05 HCO3 34.6 mEq/L (20.0-26.0) H 06/07/17 13:05 Base Excess 12.4 mEq/L (-3.0-3.0) H 06/07/17 13:05 O2 Saturation 98.0 % (92.0-100.0) 06/07/17 13:05 Endy Test YES 06/07/17 13:05 Vent Rate NA 06/07/17 13:05 Inspired O2 40 06/07/17 13:05 Tidal Volume NA 06/07/17 13:05 PEEP NA 06/07/17 13:05 Pressure (ins/psv/peep) NA 06/07/17 13:05 Critical Value E.BABCOCK 06/07/17 13:05 Sodium 137 mEq/L (136-145) 06/11/17 06:10 Potassium 4.1 mEq/L (3.5-5.1) 06/11/17 06:10 Chloride 103 mEq/L (98-107) 06/11/17 06:10 Carbon Dioxide 30.7 mEq/L (21.0-31.0) 06/11/17 06:10 Anion Gap 7.4 (7.0-16.0) 06/11/17 06:10 BUN 24 mg/dL (7-25) 06/11/17 06:10 Creatinine 0.2 mg/dL (0.7-1.3) L 06/11/17 06:10 Est GFR ( Amer) > 60.0 ml/min (>90) 06/11/17 06:10 Est GFR (Non-Af Amer) > 60.0 ml/min 06/11/17 06:10 BUN/Creatinine Ratio 120.0 06/11/17 06:10 Glucose 118 mg/dL (70-105) H 06/11/17 06:10 POC Glucose 213 MG/DL (70 - 105) H 06/01/17 06:53 Hemoglobin A1c % 5.1 % (4.0-6.0) 06/01/17 05:30 Whole Bld Lactic Acid 3.45 mmol/L (0.60-1.99) H* 06/03/17 06:45 Calcium 7.8 mg/dL (8.6-10.3) L 06/11/17 06:10 Magnesium 2.1 mg/dL (1.9-2.7) 06/07/17 06:30 Total Bilirubin 0.6 mg/dL (0.3-1.0) 06/10/17 06:20 AST 38 U/L (13-39) 06/10/17 06:20 ALT 90 U/L (7-52) H 06/10/17 06:20 Alkaline Phosphatase 69 U/L (34-104) 06/10/17 06:20 Ammonia 64 umol/L (16-53) H 06/04/17 06:45 B-Natriuretic Peptide 129.0 pg/mL (5.0-100.0) H 06/04/17 06:45 Total Protein 4.3 gm/dL (6.0-8.3) L 06/10/17 06:20 Albumin 2.1 gm/dL (4.2-5.5) L 06/10/17 06:20 Globulin 2.2 gm/dL 06/10/17 06:20 Albumin/Globulin Ratio 1.0 (1.0-1.8) 06/10/17 06:20 TSH 0.72 uIU/ml (0.34-5.60) 06/01/17 05:30 Urine Source CATH 05/31/17 12:35 Urine Color YELLOW 05/31/17 12:35 Urine Clarity CLOUDY (CLEAR) 05/31/17 12:35 Urine pH 8.5 (4.6 - 8.0) 05/31/17 12:35 Ur Specific [place] 1.010 (1.005-1.030) 05/31/17 12:35 Urine Protein 30 mg/dL (NEGATIVE) H 05/31/17 12:35 Urine Glucose (UA) NEGATIVE mg/dL (NEGATIVE) 05/31/17 12:35 Urine Ketones NEGATIVE mg/dL (NEGATIVE) 05/31/17 12:35 Urine Blood MODERATE (NEGATIVE) H 05/31/17 12:35 Urine Nitrate NEGATIVE (NEGATIVE) 05/31/17 12:35 Urine Bilirubin NEGATIVE (NEGATIVE) 05/31/17 12:35 Urine Urobilinogen 0.2 E.U./dL (0.2 - 1.0) 05/31/17 12:35 Ur Leukocyte Esterase NEGATIVE (NEGATIVE) 05/31/17 12:35 Urine RBC >100 /hpf (0-5) H 05/31/17 12:35 Urine WBC 2-5 /hpf (0-5) H 05/31/17 12:35 Ur Epithelial Cells NONE SEEN /lpf (FEW) 05/31/17 12:35 Urine Bacteria NONE SEEN /hpf (NONE SEEN) 05/31/17 12:35 Stool Occult Blood NEGATIVE (NEGATIVE) 06/05/17 06:00 Gentamicin Peak 13.8 ug/ml (4.0-8.0) H 06/11/17 11:05 Gentamicin Trough 0.8 ug/ml (0.2-2.0) 06/11/17 08:00 Vancomycin Trough 10.7 ug/mL (10-20) 06/04/17 09:00 Hepatitis A IgM Ab Negative (Negative) 06/10/17 06:20 Hep Bs Antigen Negative (Negative) 06/10/17 06:20 Hep B Core IgM Ab Negative (Negative) 06/10/17 06:20 Hepatitis C Antibody 6.9 s/co ratio (0.0-0.9) H 06/10/17 06:20 Influenza A (Rapid) NEG FOR INF A 06/05/17 08:00 Influenza B (Rapid) NEG FOR INF B 06/05/17 08:00 Blood Type O POSITIVE 06/02/17 11:40 Antibody Screen NEGATIVE 06/02/17 11:40 Crossmatch See Detail 06/02/17 11:40 - Physical Exam Vitals and I&O: Vital Signs Temp 98.2 F 06/13/17 00:00 Pulse 124 06/13/17 01:23 Resp 20 06/13/17 00:00 BP 117/60 06/13/17 00:00 Pulse Ox 94 06/13/17 00:00 Intake & Output 06/12/17 06/12/17 06/13/17 06:59 18:59 06:59 Intake Total 2000 100 783.25 Output Total 900 Balance 1100 100 783.25 Weight (lbs) 62.142 kg 62.142 kg Intake: Intake, IV Amount 1200 100 103.25 D5-0.45NS 1,000 ml @ 50 1000 mls/hr IV .Q20H [facility] Rx#: [id number] Gentamicin 130 mg In 103.25 Sodium Chloride 0.9% 100 ml @ 100 mls/hr IV Q24H [facility] Rx#:[id number] Meropenem 1 gm In Sodium 200 100 Chloride 0.9% 100 ml @ 100 mls/hr IV Q8H [facility] Rx# :[id number] Tube Feeding 800 680 Output: Urine 900 Other: # Bowel Movements 1 0 Active Medications: Current Medications Acetaminophen (Tylenol 650mg Supp) 650 mg RC Q4HR PRN PRN Reason: FEVER >100.1 Stop: 07/30/17 13:39 Acetaminophen (Tylenol) 325 mg PO Q6H PRN PRN Reason: PAIN/FEVER Stop: 07/30/17 16:47 Last Admin: 06/11/17 22:06 Dose: 325 mg Acetylcysteine (Mucomyst 10%) 6 ml HHN Q4HRT [facility] Stop: 08/08/17 14:59 Last Admin: 06/12/17 23:36 Dose: 6 ml Albuterol Sulfate (Albuterol 2.5mg/3ml Neb Ud) 1.25 mg HHN Q4HRT [facility] Stop: 08/06/17 18:59 Last Admin: 06/12/17 23:36 Dose: 1.25 mg Ascorbic Acid (Vitamin C) 500 mg GT DAILY [facility] Stop: 07/31/17 08:59 Last Admin: 06/12/17 09:29 Dose: 500 mg Bisacodyl (Dulcolax 10 Mg Supp) 10 mg RC Q72HR PRN PRN Reason: Constipation Stop: 07/30/17 13:39 [place] Oil/[place] Balsam/Trypsin (Venelex) 1 appl TP BID [facility] Stop: 07/31/17 16:59 Last Admin: 06/12/17 18:24 Dose: 1 appl Cholecalciferol (Vitamin D3) 500 iu PO DAILY [facility] Stop: 07/31/17 08:59 Last Admin: 06/12/17 09:29 Dose: 500 iu Diltiazem HCl (Cardizem) 5 mg IVP Q4H PRN PRN Reason: IF HR >120 Stop: 08/10/17 00:44 Last Admin: 06/13/17 01:23 Dose: 5 mg Famotidine (Pepcid) 20 mg IVP Q12H [facility] Stop: 07/31/17 12:44 Last Admin: 06/13/17 01:23 Dose: 20 mg Guaifenesin (Robitussin) 200 mg PO Q4HR PRN PRN Reason: Cough or Congestion Stop: 07/30/17 13:41 Last Admin: 06/10/17 20:59 Dose: 200 mg Heparin Sodium (Porcine) (Heparin) 5,000 units SUBQ Q12H [facility] Stop: 07/31/17 20:59 Last Admin: 06/12/17 20:33 Dose: 5,000 units Norepinephrine Bitartrate 4 mg (/ Dextrose) 254 mls @ 30.48 mls/hr IV TITR PRN ; Protocol; 8 MCG/MIN PRN Reason: BP MAINTENANCE (PER PROTOCOL) Stop: 07/31/17 16:46 Last Titration: 06/03/17 00:00 Dose: 0 mcg/min, 0 mls/hr Dextrose/Sodium Chloride (D5-0.45ns) 1,000 mls @ 50 mls/hr IV .Q20H [facility] Stop: 08/07/17 16:14 Last Admin: 06/12/17 06:33 Dose: 50 mls/hr Meropenem 1 gm/ Sodium (Chloride) 100 mls @ 100 mls/hr IV Q8H [facility] Stop: 06/16/17 04:59 Last Admin: 06/12/17 20:33 Dose: 100 mls/hr Gentamicin Sulfate 130 mg/ (Sodium Chloride) 103.25 mls @ 100 mls/hr IV Q24H [facility] Stop: 08/11/17 08:59 Last Infusion: 06/12/17 19:49 Dose: Infused Ipratropium [place] (Atrovent Neb 0.5mg/2.5ml) 0.5 mg HHN Q4HRT [facility] Stop: 08/06/17 18:59 Last Admin: 06/12/17 23:36 Dose: 0.5 mg Lactulose (Cephulac) 30 gm PO BID [facility] Stop: 08/03/17 16:59 Last Admin: 06/12/17 18:22 Dose: 30 gm Methylprednisolone Sodium Succinate (Solu-Medrol) 40 mg IVP Q8HR [facility] Stop: 07/30/17 20:59 Last Admin: 06/12/17 20:33 Dose: 40 mg Midodrine (Proamatine) 5 mg PO TID [facility] Stop: 08/10/17 20:59 Last Admin: 06/12/17 20:33 Dose: 5 mg Miscellaneous (Vte Chemical Prophylaxis Screen/ Admission) 1 [facility] PRN PRN PRN Reason: PROTOCOL Stop: 07/31/17 14:00 Miscellaneous (Probiotic Screen) 1 [facility] PRN PRN PRN Reason: PROTOCOL Stop: 07/31/17 16:02 Miscellaneous (Gentamicin Iv Per Pharmacy) 1 ea [facility] DAILY [facility] Stop: 08/09/17 08:59 Multivitamins/Vitamin C (Theragran) 1 tab GT DAILY [facility] Stop: 07/31/17 08:59 Last Admin: 06/12/17 09:29 Dose: 1 tab Ondansetron HCl (Zofran) 4 mg IV Q8H PRN PRN Reason: Nausea / Vomiting Stop: 07/30/17 13:41 Sodium Phosphate (Fleet Enema) 133 ml RC DAILY PRN PRN Reason: Constipation Stop: 07/30/17 13:39 General: no acute distress, cachectic HEENT: atraumatic, normocephalic, PERRLA, EOMI, moist mucous membrane Neck: supple, no thyromegaly, no lymphadenopathy Cardiovascular: S1S2, regular Lungs: clear to auscultation bilaterally, clear to percussion Abdomen: soft, no tender, no distended Extremities: no cyanosis, no clubbing, no edema Neurological: awake, alert, oriented Skin: other (sacral wound) - Procedures Procedures: Procedures Procedure Code Date INSERT EMERGENCY AIRWAY 94502 05/31/17 INSERTION OF ENDOTRACHEAL AIRWAY INTO [place], VIA OPENING [id number] 05/31/17 RESPIRATORY VENTILATION, GREATER THAN 96 CONSECUTIVE HOURS [id number] 05/31/17 VENT MGMT INPAT IN DAY 51551 05/31/17 Infectious Disease Assmt/Plan - Problem List Patient Problems: All Active Problems COUGH AND CONGESTION (Acute) - Assessment Assessment: 1. Sepsis. 2. G Tube site ESBL + E coli. 3. Pneumonia. 4. Acute respiratory failure and went dependence. 5. Altered mental status unresponsiveness, likely secondary to toxic metabolic encephalopathy. improving. 6. Cerebral palsy. 7. Aspiration again. - Plan Plan: Continue meropenem for 2 more days. Nutritional Asmnt/Malnutr-PDOC - Dietary Evaluation Malnutrition Findings (Please click <Entered> for more info): Nutritional Asmnt/Malnutrition Start: 06/01/17 17: 31 Text: Status: Complete Freq: Document 06/01/17 17:31 LCHENG (Rec: 06/01/17 17:45 HEN [id number]) Nutritional Asmnt/Malnutrition Patient General Information Nutritional Screening High Risk Consult Diagnosis renal failure, prespiratory failure r/o PNA Pertinent Medical Hx/Surgical Hx dementia, MR anemia, spastic quadriplegia, cerebral palsy, seizure, aspiration PNA, s/p respiratory failure, spsis, hyponatremia, gastroenteritis, PEG Subjective Information Consult received for Anibal 13 and pressure ulcer. Pt seen resting in bed at the time of visit, intubated, non-verbal noted. TF not running at this time. Current Diet Order/ Nutrition Support Isosource 1.5 87ml/hr x 17hr Pertinent Medications vitamin C, vitamin D3, D5w, teragran, piperacillin, miralax, cancomycin Pertinent Labs 06/01 na 160, Cl 120, K 4.1, BUN 29, Cr 0.3, Glucose 242, A1c 5.1, Ca 8.4, Mg 2.8 Nutritional Hx/Data Height 1.68 m Height (Calculated Centimeters) 167.6 Current Weight (lbs) 47.854 kg Weight (Calculated Kilograms) 47.9 Weight (Calculated Grams) 87405.0 [place] Body Weight 142 % [place] Body Weight 94 Body Mass Index (BMI) 17.0 Weight Status Underweight GI Symptoms GI Symptoms None Last BM none Difficult in: None Usual diet at home Jevity 1.5 87ml/hr x 17hr Skin Integrity/Comment: decubitus ulceration to sacrum Estimated Nutritional Goals Calories/Kcals/Kg 25-30 Kcals Calculated [id number] based on IBW 65kg Protein g/k.2-1.4 Protein Calculated 78-91 consider respiratory failure and skin probelm Nutritional Problem 1. Problem Problem excessive intake from enteral feeding Etiology current TF regimen providing excessive calorie and protein than estimated nutritional needs Signs/Symptoms: current TF providing 114% of calorie needs and 110% of protein needs Malnutrition Alert Protein-Calorie Malnutrition N/A Is there a minimum of two criteria No selected? Query Text:Check all the applicable criteria. A minimum of two criteria are recommended for diagnosis of either severe or non-severe malnutrition. Intervention/Recommendation Comments 1. Recommend modify TF rate to 70ml/hr x 17hr to meet 100% of nutritional needs and avoid overfeeding. 2. Monitor TF rate, tolerance, wt weekly, skin integrity and labs 3. F/U as moderate risk in 3-5 days, 04/25-04/27 Expected Outcomes/Goals Expected Outcomes/Goals 1. Pt to meet 75-100% of nutritional needs via nutrition support with tolerance 2. 2. Wt stability, skin to remain intact, labs to approach WNL.
[2017-06-13] MEDS: Ipratropium Neb 0.5 mg/2.5 mL UD HHN SCH ×6 (02:22→22:07)
[2017-06-13] MEDS: Albuterol Nebulizer 2.5mg/3mL HHN SCH ×6 (02:22→22:07)
[2017-06-13] MEDS: Acetylcysteine 10% 10 ML VIAL HHN SCH ×6 (02:23→22:07)
[2017-06-13] MEDS: D5-0.45NS 1,000 ML IV SCH (03:41)
[2017-06-13] MEDS: Meropenem 1 GM in Sodium Chloride 0.9% 100 ML IV SCH ×3 (05:52→20:33)
[2017-06-13] MEDS: methylPREDNISolone SS 40 mg Vial IVP SCH ×3 (05:52→20:33)
[2017-06-13 06:13] LABS: HEMOGLOBIN 10.7 gm/dL (12-16); LYMPHOCYTE ABSOLUTE 0.3 Th/cmm (1.5-3.0); MEAN CELL VOLUME 91.1 fl (80-99); MEAN CORPUSCULAR HEMOGLOBIN 30.6 pg (26.0-30.0); MEAN CORPUSCULAR HGB CONC 33.5 pg (28.0-36.0); MEAN PLATELET VOLUME 7.6 fl; MONOCYTE ABSOLUTE 0.2 Th/cmm (0.3-1.0); NEUTROPHILE ABSOLUTE 8.8 Th/cmm (1.8-8.0); PLATELET COUNT 202 Th/cmm (150-400); RED BLOOD COUNT 3.49 Mil/cmm (4.30-5.70); RED CELL DISTRIBUTION WIDTH 16.5 % (11.5-20.0); WHITE BLOOD COUNT 9.3 Th/cmm (4.8-10.8)
[2017-06-13 06:16] LABS: HEMATOCRIT 31.8 % (41.0-60)
[2017-06-13 06:31] LABS: ANION GAP 8.7 (7.0-16.0); BUN - UREA NITROGEN 26 mg/dL (7-25); CHLORIDE 109 mEq/L (98-107); CREATININE - SERUM 0.2 mg/dL (0.7-1.3); GFR AFRICAN-AMERICAN > 60.0 ml/min (>90); GFR NON AFRICAN-AMERICAN > 60.0 ml/min; GLUCOSE 141 mg/dL (70-105); POTASSIUM SERUM 3.7 mEq/L (3.5-5.1); SODIUM SERUM 142 mEq/L (136-145)
[2017-06-13] MEDS: Lactulose 10 Gm/15 mL 30mL UDC PO SCH ×2 (09:11→16:20)
[2017-06-13] MEDS: Multivitamin Tab GT SCH (09:12)
--- NOTE | 2017-06-13 09:19 | Diagnostic Imaging Report ---
CHEST X-RAY: AP view INDICATION: Shortness of breath COMPARISON: 06/10/2017 FINDINGS: Developing multifocal bilateral lower lung zone infiltrates are noted. Heart size is normal. Trace bilateral effusions are noted. IMPRESSION: Developing multifocal bilateral lower lung zone infiltrates. Follow-up recommended.
[2017-06-13] MEDS: Venelex 60gm Tube TP SCH ×2 (10:27→18:12)
--- NOTE | 2017-06-13 13:26 | Internal Medicine Prog Note ---
Internal Medicine Subjective - Subjective Service Date: 06/13/17 Patient seen and examined:: with staff Patient is:: awake, non-verbal, non-interactive, in bed Patient Complaints of:: congestion Per staff patient has:: no adverse event, tolerating meds Internal Medicine Objective - Results Result Diagrams: 06/13/17 05:40 06/13/17 05:40 Recent Labs: Laboratory Last Values WBC 9.3 Th/cmm (4.8-10.8) 06/13/17 05:40 RBC 3.49 Mil/cmm (4.30-5.70) L 06/13/17 05:40 Hgb 10.7 gm/dL (12-16) L 06/13/17 05:40 Hct 31.8 % (41.0-60) L D 06/13/17 05:40 MCV 91.1 fl (80-99) 06/13/17 05:40 MCH 30.6 pg (26.0-30.0) H 06/13/17 05:40 MCHC Differential 33.5 pg (28.0-36.0) 06/13/17 05:40 RDW 16.5 % (11.5-20.0) 06/13/17 05:40 Plt Count 202 Th/cmm (150-400) 06/13/17 05:40 MPV 7.6 fl 06/13/17 05:40 Neutrophils % 89.7 % (40.0-80.0) H 06/05/17 05:48 Band Neutrophils % 5 % (0-10) 06/07/17 06:30 Lymphocytes % 6.6 % (20.0-50.0) L 06/05/17 05:48 Monocytes % 3.6 % (2.0-10.0) 06/05/17 05:48 Eosinophils % 0.1 % (0.0-5.0) 06/05/17 05:48 Basophils % 0.0 % (0.0-2.0) 06/05/17 05:48 Neutrophils (Manual) 81 % (40-80) H 06/07/17 06:30 Lymphocytes 10 % (20-50) L 06/07/17 06:30 Monocytes 4 % (2-10) 06/07/17 06:30 Platelet Estimate ADEQUATE (NORMAL) 06/07/17 06:30 PT 11.3 SECONDS (9.5-11.5) 06/11/17 06:10 INR 1.09 (0.5-1.4) 06/11/17 06:10 PTT (Actin FS) 23.1 SECONDS (26.0-38.0) L 06/11/17 06:10 Specimen Source Arterial 06/07/17 13:05 Sample Site Right Radial 06/07/17 13:05 pH 7.52 (7.35-7.45) H 06/07/17 13:05 pCO2 45.0 mmHg (35.0-45.0) 06/07/17 13:05 pO2 95.0 mmHg (80.0-100.0) 06/07/17 13:05 HCO3 34.6 mEq/L (20.0-26.0) H 06/07/17 13:05 Base Excess 12.4 mEq/L (-3.0-3.0) H 06/07/17 13:05 O2 Saturation 98.0 % (92.0-100.0) 06/07/17 13:05 Endy Test YES 06/07/17 13:05 Vent Rate NA 06/07/17 13:05 Inspired O2 40 06/07/17 13:05 Tidal Volume NA 06/07/17 13:05 PEEP NA 06/07/17 13:05 Pressure (ins/psv/peep) NA 06/07/17 13:05 Critical Value E.BABCOCK 06/07/17 13:05 Sodium 142 mEq/L (136-145) 06/13/17 05:40 Potassium 3.7 mEq/L (3.5-5.1) 06/13/17 05:40 Chloride 109 mEq/L (98-107) H 06/13/17 05:40 Carbon Dioxide 28.0 mEq/L (21.0-31.0) 06/13/17 05:40 Anion Gap 8.7 (7.0-16.0) 06/13/17 05:40 BUN 26 mg/dL (7-25) H 06/13/17 05:40 Creatinine 0.2 mg/dL (0.7-1.3) L 06/13/17 05:40 Est GFR ( Amer) > 60.0 ml/min (>90) 06/13/17 05:40 Est GFR (Non-Af Amer) > 60.0 ml/min 06/13/17 05:40 BUN/Creatinine Ratio 130.0 06/13/17 05:40 Glucose 141 mg/dL (70-105) H 06/13/17 05:40 POC Glucose 213 MG/DL (70 - 105) H 06/01/17 06:53 Hemoglobin A1c % 5.1 % (4.0-6.0) 06/01/17 05:30 Whole Bld Lactic Acid 3.45 mmol/L (0.60-1.99) H* 06/03/17 06:45 Calcium 8.0 mg/dL (8.6-10.3) L 06/13/17 05:40 Magnesium 2.1 mg/dL (1.9-2.7) 06/07/17 06:30 Total Bilirubin 0.6 mg/dL (0.3-1.0) 06/10/17 06:20 AST 38 U/L (13-39) 06/10/17 06:20 ALT 90 U/L (7-52) H 06/10/17 06:20 Alkaline Phosphatase 69 U/L (34-104) 06/10/17 06:20 Ammonia 64 umol/L (16-53) H 06/04/17 06:45 B-Natriuretic Peptide 129.0 pg/mL (5.0-100.0) H 06/04/17 06:45 Total Protein 4.3 gm/dL (6.0-8.3) L 06/10/17 06:20 Albumin 2.1 gm/dL (4.2-5.5) L 06/10/17 06:20 Globulin 2.2 gm/dL 06/10/17 06:20 Albumin/Globulin Ratio 1.0 (1.0-1.8) 06/10/17 06:20 TSH 0.72 uIU/ml (0.34-5.60) 06/01/17 05:30 Urine Source CATH 05/31/17 12:35 Urine Color YELLOW 05/31/17 12:35 Urine Clarity CLOUDY (CLEAR) 05/31/17 12:35 Urine pH 8.5 (4.6 - 8.0) 05/31/17 12:35 Ur Specific [place] 1.010 (1.005-1.030) 05/31/17 12:35 Urine Protein 30 mg/dL (NEGATIVE) H 05/31/17 12:35 Urine Glucose (UA) NEGATIVE mg/dL (NEGATIVE) 05/31/17 12:35 Urine Ketones NEGATIVE mg/dL (NEGATIVE) 05/31/17 12:35 Urine Blood MODERATE (NEGATIVE) H 05/31/17 12:35 Urine Nitrate NEGATIVE (NEGATIVE) 05/31/17 12:35 Urine Bilirubin NEGATIVE (NEGATIVE) 05/31/17 12:35 Urine Urobilinogen 0.2 E.U./dL (0.2 - 1.0) 05/31/17 12:35 Ur Leukocyte Esterase NEGATIVE (NEGATIVE) 05/31/17 12:35 Urine RBC >100 /hpf (0-5) H 05/31/17 12:35 Urine WBC 2-5 /hpf (0-5) H 05/31/17 12:35 Ur Epithelial Cells NONE SEEN /lpf (FEW) 05/31/17 12:35 Urine Bacteria NONE SEEN /hpf (NONE SEEN) 05/31/17 12:35 Stool Occult Blood NEGATIVE (NEGATIVE) 06/05/17 06:00 Gentamicin Peak 13.8 ug/ml (4.0-8.0) H 06/11/17 11:05 Gentamicin Trough 0.8 ug/ml (0.2-2.0) 06/11/17 08:00 Vancomycin Trough 10.7 ug/mL (10-20) 06/04/17 09:00 Hepatitis A IgM Ab Negative (Negative) 06/10/17 06:20 Hep Bs Antigen Negative (Negative) 06/10/17 06:20 Hep B Core IgM Ab Negative (Negative) 06/10/17 06:20 Hepatitis C Antibody 6.9 s/co ratio (0.0-0.9) H 06/10/17 06:20 Influenza A (Rapid) NEG FOR INF A 06/05/17 08:00 Influenza B (Rapid) NEG FOR INF B 06/05/17 08:00 Blood Type O POSITIVE 06/02/17 11:40 Antibody Screen NEGATIVE 06/02/17 11:40 Crossmatch See Detail 06/02/17 11:40 - Physical Exam Vitals and I&O: Vital Signs Temp 97.2 F 06/13/17 12:00 Pulse 88 06/13/17 12:00 Resp 20 06/13/17 12:21 BP 112/68 06/13/17 12:00 Pulse Ox 99 06/13/17 12:00 Intake & Output 06/12/17 06/13/17 06/13/17 18:59 06:59 18:59 Intake Total 100 2933.25 Output Total 1850 Balance 100 1083.25 Weight (lbs) 137 lb Intake: Intake, IV Amount 100 1303.25 D5-0.45NS 1,000 ml @ 50 1000 mls/hr IV .Q20H [facility] Rx#: [id number] Gentamicin 130 mg In 103.25 Sodium Chloride 0.9% 100 ml @ 100 mls/hr IV Q24H [facility] Rx#:[id number] Meropenem 1 gm In Sodium 100 200 Chloride 0.9% 100 ml @ 100 mls/hr IV Q8H [facility] Rx# :[id number] Tube Feeding 1430 Other 200 Output: Urine 1850 Stool 0 Other: # Bowel Movements 0 Active Medications: Current Medications Acetaminophen (Tylenol 650mg Supp) 650 mg RC Q4HR PRN PRN Reason: FEVER >100.1 Stop: 07/30/17 13:39 Acetaminophen (Tylenol) 325 mg PO Q6H PRN PRN Reason: PAIN/FEVER Stop: 07/30/17 16:47 Last Admin: 06/11/17 22:06 Dose: 325 mg Acetylcysteine (Mucomyst 10%) 6 ml HHN Q4HRT [facility] Stop: 08/08/17 14:59 Last Admin: 06/13/17 11:26 Dose: 6 ml Albuterol Sulfate (Albuterol 2.5mg/3ml Neb Ud) 1.25 mg HHN Q4HRT [facility] Stop: 08/06/17 18:59 Last Admin: 06/13/17 11:26 Dose: 1.25 mg Ascorbic Acid (Vitamin C) 500 mg GT DAILY [facility] Stop: 07/31/17 08:59 Last Admin: 06/13/17 09:13 Dose: 500 mg Bisacodyl (Dulcolax 10 Mg Supp) 10 mg RC Q72HR PRN PRN Reason: Constipation Stop: 07/30/17 13:39 Simpson Oil/Canadian Balsam/Trypsin (Venelex) 1 appl TP BID [facility] Stop: 07/31/17 16:59 Last Admin: 06/13/17 10:27 Dose: 1 appl Cholecalciferol (Vitamin D3) 500 iu PO DAILY [facility] Stop: 07/31/17 08:59 Last Admin: 06/13/17 09:12 Dose: 500 iu Diltiazem HCl (Cardizem) 5 mg IVP Q4H PRN PRN Reason: IF HR >120 Stop: 08/10/17 00:44 Last Admin: 06/13/17 01:23 Dose: 5 mg Famotidine (Pepcid) 20 mg IVP Q12H [facility] Stop: 07/31/17 12:44 Last Admin: 06/13/17 12:09 Dose: 20 mg Guaifenesin (Robitussin) 200 mg PO Q4HR PRN PRN Reason: Cough or Congestion Stop: 07/30/17 13:41 Last Admin: 06/10/17 20:59 Dose: 200 mg Heparin Sodium (Porcine) (Heparin) 5,000 units SUBQ Q12H [facility] Stop: 07/31/17 20:59 Last Admin: 06/13/17 09:07 Dose: 5,000 units Norepinephrine Bitartrate 4 mg (/ Dextrose) 254 mls @ 30.48 mls/hr IV TITR PRN ; Protocol; 8 MCG/MIN PRN Reason: BP MAINTENANCE (PER PROTOCOL) Stop: 07/31/17 16:46 Last Titration: 06/03/17 00:00 Dose: 0 mcg/min, 0 mls/hr Dextrose/Sodium Chloride (D5-0.45ns) 1,000 mls @ 50 mls/hr IV .Q20H [facility] Stop: 08/07/17 16:14 Last Admin: 06/13/17 03:41 Dose: 50 mls/hr Meropenem 1 gm/ Sodium (Chloride) 100 mls @ 100 mls/hr IV Q8H [facility] Stop: 06/16/17 04:59 Last Admin: 06/13/17 12:10 Dose: 100 mls/hr Gentamicin Sulfate 130 mg/ (Sodium Chloride) 103.25 mls @ 100 mls/hr IV Q24H [facility] Stop: 08/11/17 08:59 Last Admin: 06/13/17 10:24 Dose: 100 mls/hr Ipratropium [place] (Atrovent Neb 0.5mg/2.5ml) 0.5 mg HHN Q4HRT [facility] Stop: 08/06/17 18:59 Last Admin: 06/13/17 11:26 Dose: 0.5 mg Lactulose (Cephulac) 30 gm PO BID [facility] Stop: 08/03/17 16:59 Last Admin: 06/13/17 09:11 Dose: 30 gm Methylprednisolone Sodium Succinate (Solu-Medrol) 40 mg IVP Q8HR [facility] Stop: 07/30/17 20:59 Last Admin: 06/13/17 12:09 Dose: 40 mg Midodrine (Proamatine) 5 mg PO TID [facility] Stop: 08/10/17 20:59 Last Admin: 06/13/17 09:13 Dose: 5 mg Miscellaneous (Vte Chemical Prophylaxis Screen/ Admission) 1 ea PRN PRN PRN Reason: PROTOCOL Stop: 07/31/17 14:00 Miscellaneous (Probiotic Screen) 1 [facility] PRN PRN PRN Reason: PROTOCOL Stop: 07/31/17 16:02 Miscellaneous (Gentamicin Iv Per Pharmacy) 1 ea MC DAILY [facility] Stop: 08/09/17 08:59 Multivitamins/Vitamin C (Theragran) 1 tab GT DAILY [facility] Stop: 07/31/17 08:59 Last Admin: 06/13/17 09:12 Dose: 1 tab Ondansetron HCl (Zofran) 4 mg IV Q8H PRN PRN Reason: Nausea / Vomiting Stop: 07/30/17 13:41 Sodium Phosphate (Fleet Enema) 133 ml RC DAILY PRN PRN Reason: Constipation Stop: 07/30/17 13:39 General: weak, congested HEENT: NC/AT, PERRLA Neck: No LAD, deformity Lungs: congested, rales, ronchi Cardiovascular: RRR, Normal S1, Normal S2, without murmur Abdomen: soft, non-tender, non-distended, +GT, positive bowel sound Extremities: excoriation, ecchymosis, contracture, deformity, atrophy Neurological: unable to follow command - Procedures Procedures: Procedures Procedure Code Date INSERT EMERGENCY AIRWAY 48455 05/31/17 INSERTION OF ENDOTRACHEAL AIRWAY INTO [place], VIA OPENING [id number] 05/31/17 RESPIRATORY VENTILATION, GREATER THAN 96 CONSECUTIVE HOURS [id number] 05/31/17 VENT MGMT INPAT INIT DAY 86111 05/31/17 Internal Medicine Assmt/Plan - Assessment Assessment: S/p cardiopulmonary arrest s/p extubation Multilobar PNA lactic acidosis Acute Respiratory Failure Sepsis PNA leukocytosis hypokalemia acute renal insufficiency spastic quadriplegia seizures - Plan Plan: suction patient has needed aspiration precautions inhalation treatments empiric ivantibiotics pulmo follow up continue current plan of care Nutritional Asmnt/Malnutr-PDOC - Dietary Evaluation Malnutrition Findings (Please click <Entered> for more info): Nutritional Asmnt/Malnutrition Start: 06/01/17 17: 31 Text: Status: Complete Freq: Document 06/01/17 17:31 HENG (Rec: 06/01/17 17:45 HEN [id number]) Nutritional Asmnt/Malnutrition Patient General Information Nutritional Screening High Risk Consult Diagnosis renal failure, prespiratory failure r/o PNA Pertinent Medical Hx/Surgical Hx dementia, MR anemia, spastic quadriplegia, cerebral palsy, seizure, aspiration PNA, s/p respiratory failure, spsis, hyponatremia, gastroenteritis, PEG Subjective Information Consult received for Anibal 13 and pressure ulcer. Pt seen resting in bed at the time of visit, intubated, non-verbal noted. TF not running at this time. Current Diet Order/ Nutrition Support Isosource 1.5 87ml/hr x 17hr Pertinent Medications vitamin C, vitamin D3, D5w, teragran, piperacillin, miralax, cancomycin Pertinent Labs 1/ na 160, Cl 120, K 4.1, BUN 29, Cr 0.3, Glucose 242, A1c 5.1, Ca 8.4, Mg 2.8 Nutritional Hx/Data Height 5 ft 6 in Height (Calculated Centimeters) 167.6 Current Weight (lbs) 105 lb 8 oz Weight (Calculated Kilograms) 47.9 Weight (Calculated Grams) 89149.0 [place] Body Weight 142 % [place] Body Weight 94 Body Mass Index (BMI) 17.0 Weight Status Underweight GI Symptoms GI Symptoms None Last BM none Difficult in: None Usual diet at home Jevity 1.5 87ml/hr x 17hr Skin Integrity/Comment: decubitus ulceration to sacrum Estimated Nutritional Goals Calories/Kcals/Kg 25-30 Kcals Calculated [id number] based on IBW 65kg Protein g/k.2-1.4 Protein Calculated 78-91 consider respiratory failure and skin probelm Nutritional Problem 1. Problem Problem excessive intake from enteral feeding Etiology current TF regimen providing excessive calorie and protein than estimated nutritional needs Signs/Symptoms: current TF providing 114% of calorie needs and 110% of protein needs Malnutrition Alert Protein-Calorie Malnutrition N/A Is there a minimum of two criteria No selected? Query Text:Check all the applicable criteria. A minimum of two criteria are recommended for diagnosis of either severe or non-severe malnutrition. Intervention/Recommendation Comments 1. Recommend modify TF rate to 70ml/hr x 17hr to meet 100% of nutritional needs and avoid overfeeding. 2. Monitor TF rate, tolerance, wt weekly, skin integrity and labs 3. F/U as moderate risk in 3-5 days, 04/25-04/27 Expected Outcomes/Goals Expected Outcomes/Goals 1. Pt to meet 75-100% of nutritional needs via nutrition support with tolerance 2. 2. Wt stability, skin to remain intact, labs to approach WNL.
--- NOTE | 2017-06-13 14:21 | General Progress Note ---
Subjective - Review of Systems Service Date: 06/13/17 Events since last encounter: will schedule for surgery in AM Objective - Results Result Diagrams: 06/13/17 05:40 06/13/17 05:40 Recent Labs: Laboratory Last Values WBC 9.3 Th/cmm (4.8-10.8) 06/13/17 05:40 RBC 3.49 Mil/cmm (4.30-5.70) L 06/13/17 05:40 Hgb 10.7 gm/dL (12-16) L 06/13/17 05:40 Hct 31.8 % (41.0-60) L D 06/13/17 05:40 MCV 91.1 fl (80-99) 06/13/17 05:40 MCH 30.6 pg (26.0-30.0) H 06/13/17 05:40 MCHC Differential 33.5 pg (28.0-36.0) 06/13/17 05:40 RDW 16.5 % (11.5-20.0) 06/13/17 05:40 Plt Count 202 Th/cmm (150-400) 06/13/17 05:40 MPV 7.6 fl 06/13/17 05:40 Neutrophils % 89.7 % (40.0-80.0) H 06/05/17 05:48 Band Neutrophils % 5 % (0-10) 06/07/17 06:30 Lymphocytes % 6.6 % (20.0-50.0) L 06/05/17 05:48 Monocytes % 3.6 % (2.0-10.0) 06/05/17 05:48 Eosinophils % 0.1 % (0.0-5.0) 06/05/17 05:48 Basophils % 0.0 % (0.0-2.0) 06/05/17 05:48 Neutrophils (Manual) 81 % (40-80) H 06/07/17 06:30 Lymphocytes 10 % (20-50) L 06/07/17 06:30 Monocytes 4 % (2-10) 06/07/17 06:30 Platelet Estimate ADEQUATE (NORMAL) 06/07/17 06:30 PT 11.3 SECONDS (9.5-11.5) 06/11/17 06:10 INR 1.09 (0.5-1.4) 06/11/17 06:10 PTT (Actin FS) 23.1 SECONDS (26.0-38.0) L 06/11/17 06:10 Specimen Source Arterial 06/07/17 13:05 Sample Site Right Radial 06/07/17 13:05 pH 7.52 (7.35-7.45) H 06/07/17 13:05 pCO2 45.0 mmHg (35.0-45.0) 06/07/17 13:05 pO2 95.0 mmHg (80.0-100.0) 06/07/17 13:05 HCO3 34.6 mEq/L (20.0-26.0) H 06/07/17 13:05 Base Excess 12.4 mEq/L (-3.0-3.0) H 06/07/17 13:05 O2 Saturation 98.0 % (92.0-100.0) 06/07/17 13:05 Endy Test YES 06/07/17 13:05 Vent Rate NA 06/07/17 13:05 Inspired O2 40 06/07/17 13:05 Tidal Volume NA 06/07/17 13:05 PEEP NA 06/07/17 13:05 Pressure (ins/psv/peep) NA 06/07/17 13:05 Critical Value E.BABCOCK 06/07/17 13:05 Sodium 142 mEq/L (136-145) 06/13/17 05:40 Potassium 3.7 mEq/L (3.5-5.1) 06/13/17 05:40 Chloride 109 mEq/L (98-107) H 06/13/17 05:40 Carbon Dioxide 28.0 mEq/L (21.0-31.0) 06/13/17 05:40 Anion Gap 8.7 (7.0-16.0) 06/13/17 05:40 BUN 26 mg/dL (7-25) H 06/13/17 05:40 Creatinine 0.2 mg/dL (0.7-1.3) L 06/13/17 05:40 Est GFR ( Amer) > 60.0 ml/min (>90) 06/13/17 05:40 Est GFR (Non-Af Amer) > 60.0 ml/min 06/13/17 05:40 BUN/Creatinine Ratio 130.0 06/13/17 05:40 Glucose 141 mg/dL (70-105) H 06/13/17 05:40 POC Glucose 213 MG/DL (70 - 105) H 06/01/17 06:53 Hemoglobin A1c % 5.1 % (4.0-6.0) 06/01/17 05:30 Whole Bld Lactic Acid 3.45 mmol/L (0.60-1.99) H* 06/03/17 06:45 Calcium 8.0 mg/dL (8.6-10.3) L 06/13/17 05:40 Magnesium 2.1 mg/dL (1.9-2.7) 06/07/17 06:30 Total Bilirubin 0.6 mg/dL (0.3-1.0) 06/10/17 06:20 AST 38 U/L (13-39) 06/10/17 06:20 ALT 90 U/L (7-52) H 06/10/17 06:20 Alkaline Phosphatase 69 U/L (34-104) 06/10/17 06:20 Ammonia 64 umol/L (16-53) H 06/04/17 06:45 B-Natriuretic Peptide 129.0 pg/mL (5.0-100.0) H 06/04/17 06:45 Total Protein 4.3 gm/dL (6.0-8.3) L 06/10/17 06:20 Albumin 2.1 gm/dL (4.2-5.5) L 06/10/17 06:20 Globulin 2.2 gm/dL 06/10/17 06:20 Albumin/Globulin Ratio 1.0 (1.0-1.8) 06/10/17 06:20 TSH 0.72 uIU/ml (0.34-5.60) 06/01/17 05:30 Urine Source CATH 05/31/17 12:35 Urine Color YELLOW 05/31/17 12:35 Urine Clarity CLOUDY (CLEAR) 05/31/17 12:35 Urine pH 8.5 (4.6 - 8.0) 05/31/17 12:35 Ur Specific [place] 1.010 (1.005-1.030) 05/31/17 12:35 Urine Protein 30 mg/dL (NEGATIVE) H 05/31/17 12:35 Urine Glucose (UA) NEGATIVE mg/dL (NEGATIVE) 05/31/17 12:35 Urine Ketones NEGATIVE mg/dL (NEGATIVE) 05/31/17 12:35 Urine Blood MODERATE (NEGATIVE) H 05/31/17 12:35 Urine Nitrate NEGATIVE (NEGATIVE) 05/31/17 12:35 Urine Bilirubin NEGATIVE (NEGATIVE) 05/31/17 12:35 Urine Urobilinogen 0.2 E.U./dL (0.2 - 1.0) 05/31/17 12:35 Ur Leukocyte Esterase NEGATIVE (NEGATIVE) 05/31/17 12:35 Urine RBC >100 /hpf (0-5) H 05/31/17 12:35 Urine WBC 2-5 /hpf (0-5) H 05/31/17 12:35 Ur Epithelial Cells NONE SEEN /lpf (FEW) 05/31/17 12:35 Urine Bacteria NONE SEEN /hpf (NONE SEEN) 05/31/17 12:35 Stool Occult Blood NEGATIVE (NEGATIVE) 06/05/17 06:00 Gentamicin Peak 13.8 ug/ml (4.0-8.0) H 06/11/17 11:05 Gentamicin Trough 0.8 ug/ml (0.2-2.0) 06/11/17 08:00 Vancomycin Trough 10.7 ug/mL (10-20) 06/04/17 09:00 Hepatitis A IgM Ab Negative (Negative) 06/10/17 06:20 Hep Bs Antigen Negative (Negative) 06/10/17 06:20 Hep B Core IgM Ab Negative (Negative) 06/10/17 06:20 Hepatitis C Antibody 6.9 s/co ratio (0.0-0.9) H 06/10/17 06:20 Influenza A (Rapid) NEG FOR INF A 06/05/17 08:00 Influenza B (Rapid) NEG FOR INF B 06/05/17 08:00 Blood Type O POSITIVE 06/02/17 11:40 Antibody Screen NEGATIVE 06/02/17 11:40 Crossmatch See Detail 06/02/17 11:40 - Physical Exam Vitals and I&O: Vital Signs Temp 97.2 F 06/13/17 12:00 Pulse 88 06/13/17 12:00 Resp 20 06/13/17 12:21 BP 112/68 06/13/17 12:00 Pulse Ox 99 06/13/17 12:00 Intake & Output 06/12/17 06/13/17 06/13/17 18:59 06:59 18:59 Intake Total 100 2933.25 Output Total 1850 Balance 100 1083.25 Weight (lbs) 62.142 kg Intake: Intake, IV Amount 100 1303.25 D5-0.45NS 1,000 ml @ 50 1000 mls/hr IV .Q20H [facility] Rx#: [id number] Gentamicin 130 mg In 103.25 Sodium Chloride 0.9% 100 ml @ 100 mls/hr IV Q24H [facility] Rx#:[id number] Meropenem 1 gm In Sodium 100 200 Chloride 0.9% 100 ml @ 100 mls/hr IV Q8H [facility] Rx# :[id number] Tube Feeding 1430 Other 200 Output: Urine 1850 Stool 0 Other: # Bowel Movements 0 Active Medications: Current Medications Acetaminophen (Tylenol 650mg Supp) 650 mg RC Q4HR PRN PRN Reason: FEVER >100.1 Stop: 07/30/17 13:39 Acetaminophen (Tylenol) 325 mg PO Q6H PRN PRN Reason: PAIN/FEVER Stop: 07/30/17 16:47 Last Admin: 06/11/17 22:06 Dose: 325 mg Acetylcysteine (Mucomyst 10%) 6 ml HHN Q4HRT [facility] Stop: 08/08/17 14:59 Last Admin: 06/13/17 11:26 Dose: 6 ml Albuterol Sulfate (Albuterol 2.5mg/3ml Neb Ud) 1.25 mg HHN Q4HRT [facility] Stop: 08/06/17 18:59 Last Admin: 06/13/17 11:26 Dose: 1.25 mg Ascorbic Acid (Vitamin C) 500 mg GT DAILY [facility] Stop: 07/31/17 08:59 Last Admin: 06/13/17 09:13 Dose: 500 mg Bisacodyl (Dulcolax 10 Mg Supp) 10 mg RC Q72HR PRN PRN Reason: Constipation Stop: 07/30/17 13:39 [place] Oil/Australian Balsam/Trypsin (Venelex) 1 appl TP BID [facility] Stop: 07/31/17 16:59 Last Admin: 06/13/17 10:27 Dose: 1 appl Cholecalciferol (Vitamin D3) 500 iu PO DAILY [facility] Stop: 07/31/17 08:59 Last Admin: 06/13/17 09:12 Dose: 500 iu Diltiazem HCl (Cardizem) 5 mg IVP Q4H PRN PRN Reason: IF HR >120 Stop: 08/10/17 00:44 Last Admin: 06/13/17 01:23 Dose: 5 mg Famotidine (Pepcid) 20 mg IVP Q12H [facility] Stop: 07/31/17 12:44 Last Admin: 06/13/17 12:09 Dose: 20 mg Guaifenesin (Robitussin) 200 mg PO Q4HR PRN PRN Reason: Cough or Congestion Stop: 07/30/17 13:41 Last Admin: 06/10/17 20:59 Dose: 200 mg Heparin Sodium (Porcine) (Heparin) 5,000 units SUBQ Q12H [facility] Stop: 07/31/17 20:59 Last Admin: 06/13/17 09:07 Dose: 5,000 units Norepinephrine Bitartrate 4 mg (/ Dextrose) 254 mls @ 30.48 mls/hr IV TITR PRN ; Protocol; 8 MCG/MIN PRN Reason: BP MAINTENANCE (PER PROTOCOL) Stop: 07/31/17 16:46 Last Titration: 06/03/17 00:00 Dose: 0 mcg/min, 0 mls/hr Dextrose/Sodium Chloride (D5-0.45ns) 1,000 mls @ 50 mls/hr IV .Q20H [facility] Stop: 08/07/17 16:14 Last Admin: 06/13/17 03:41 Dose: 50 mls/hr Meropenem 1 gm/ Sodium (Chloride) 100 mls @ 100 mls/hr IV Q8H [facility] Stop: 06/16/17 04:59 Last Admin: 06/13/17 12:10 Dose: 100 mls/hr Gentamicin Sulfate 130 mg/ (Sodium Chloride) 103.25 mls @ 100 mls/hr IV Q24H [facility] Stop: 08/11/17 08:59 Last Admin: 06/13/17 10:24 Dose: 100 mls/hr Ipratropium [place] (Atrovent Neb 0.5mg/2.5ml) 0.5 mg HHN Q4HRT [facility] Stop: 08/06/17 18:59 Last Admin: 06/13/17 11:26 Dose: 0.5 mg Lactulose (Cephulac) 30 gm PO BID [facility] Stop: 08/03/17 16:59 Last Admin: 06/13/17 09:11 Dose: 30 gm Methylprednisolone Sodium Succinate (Solu-Medrol) 40 mg IVP Q8HR [facility] Stop: 07/30/17 20:59 Last Admin: 06/13/17 12:09 Dose: 40 mg Midodrine (Proamatine) 5 mg PO TID [facility] Stop: 08/10/17 20:59 Last Admin: 06/13/17 09:13 Dose: 5 mg Miscellaneous (Vte Chemical Prophylaxis Screen/ Admission) 1 [facility] PRN PRN PRN Reason: PROTOCOL Stop: 07/31/17 14:00 Miscellaneous (Probiotic Screen) 1 [facility] PRN PRN PRN Reason: PROTOCOL Stop: 07/31/17 16:02 Miscellaneous (Gentamicin Iv Per Pharmacy) 1 ea [facility] DAILY [facility] Stop: 08/09/17 08:59 Multivitamins/Vitamin C (Theragran) 1 tab GT DAILY [facility] Stop: 07/31/17 08:59 Last Admin: 06/13/17 09:12 Dose: 1 tab Ondansetron HCl (Zofran) 4 mg IV Q8H PRN PRN Reason: Nausea / Vomiting Stop: 07/30/17 13:41 Sodium Phosphate (Fleet Enema) 133 ml RC DAILY PRN PRN Reason: Constipation Stop: 07/30/17 13:39 - Procedures Procedures: Procedures Procedure Code Date INSERT EMERGENCY AIRWAY 43417 05/31/17 INSERTION OF ENDOTRACHEAL AIRWAY INTO [place]ACHEA, VIA OPENING [id number] 05/31/17 RESPIRATORY VENTILATION, GREATER THAN 96 CONSECUTIVE HOURS [id number] 05/31/17 VENT MGMT INPAT INIT DAY 00989 05/31/17 Assessment/Plan - Problem List Patient Problems: All Active Problems COUGH AND CONGESTION (Acute) Nutritional Asmnt/Malnutr-PDOC - Dietary Evaluation Malnutrition Findings (Please click <Entered> for more info): Nutritional Asmnt/Malnutrition Start: 06/01/17 17: 31 Text: Status: Complete Freq: Document 06/01/17 17:31 SHELBIE (Rec: 06/01/17 17:45 SHELBIE [id number]) Nutritional Asmnt/Malnutrition Patient General Information Nutritional Screening High Risk Consult Diagnosis renal failure, prespiratory failure r/o PNA Pertinent Medical Hx/Surgical Hx dementia, MR anemia, spastic quadriplegia, cerebral palsy, seizure, aspiration PNA, s/p respiratory failure, spsis, hyponatremia, gastroenteritis, PEG Subjective Information Consult received for Anibal 13 and pressure ulcer. Pt seen resting in bed at the time of visit, intubated, non-verbal noted. TF not running at this time. Current Diet Order/ Nutrition Support Isosource 1.5 87ml/hr x 17hr Pertinent Medications vitamin C, vitamin D3, D5w, teragran, piperacillin, miralax, cancomycin Pertinent Labs 06/01 na 160, Cl 120, K 4.1, BUN 29, Cr 0.3, Glucose 242, A1c 5.1, Ca 8.4, Mg 2.8 Nutritional Hx/Data Height 1.68 m Height (Calculated Centimeters) 167.6 Current Weight (lbs) 47.854 kg Weight (Calculated Kilograms) 47.9 Weight (Calculated Grams) 74922.0 [place] Body Weight 142 % [place] Body Weight 94 Body Mass Index (BMI) 17.0 Weight Status Underweight GI Symptoms GI Symptoms None Last BM none Difficult in: None Usual diet at home Jevity 1.5 87ml/hr x 17hr Skin Integrity/Comment: decubitus ulceration to sacrum Estimated Nutritional Goals Calories/Kcals/Kg 25-30 Kcals Calculated [id number] based on IBW 65kg Protein g/k.2-1.4 Protein Calculated 78-91 consider respiratory failure and skin probelm Nutritional Problem 1. Problem Problem excessive intake from enteral feeding Etiology current TF regimen providing excessive calorie and protein than estimated nutritional needs Signs/Symptoms: current TF providing 114% of calorie needs and 110% of protein needs Malnutrition Alert Protein-Calorie Malnutrition N/A Is there a minimum of two criteria No selected? Query Text:Check all the applicable criteria. A minimum of two criteria are recommended for diagnosis of either severe or non-severe malnutrition. Intervention/Recommendation Comments 1. Recommend modify TF rate to 70ml/hr x 17hr to meet 100% of nutritional needs and avoid overfeeding. 2. Monitor TF rate, tolerance, wt weekly, skin integrity and labs 3. F/U as moderate risk in 3-5 days, 04/25-04/27 Expected Outcomes/Goals Expected Outcomes/Goals 1. Pt to meet 75-100% of nutritional needs via nutrition support with tolerance 2. 2. Wt stability, skin to remain intact, labs to approach WNL.
[2017-06-14] MEDS: Albuterol Nebulizer 2.5mg/3mL HHN SCH ×6 (02:05→23:23)
[2017-06-14] MEDS: Acetylcysteine 10% 10 ML VIAL HHN SCH ×6 (02:06→22:55)
[2017-06-14] MEDS: Ipratropium Neb 0.5 mg/2.5 mL UD HHN SCH ×6 (02:06→23:23)
[2017-06-14] MEDS: D5-0.45NS 1,000 ML IV SCH ×3 (02:33→14:00)
[2017-06-14] MEDS: methylPREDNISolone SS 40 mg Vial IVP SCH ×3 (05:07→20:47)
[2017-06-14 06:28] LABS: HEMOGLOBIN 9.7 gm/dL (12-16); LYMPHOCYTE ABSOLUTE 0.3 Th/cmm (1.5-3.0); MEAN CELL VOLUME 90.2 fl (80-99); MEAN CORPUSCULAR HEMOGLOBIN 30.8 pg (26.0-30.0); MEAN CORPUSCULAR HGB CONC 34.2 pg (28.0-36.0); MEAN PLATELET VOLUME 7.2 fl; MONOCYTE ABSOLUTE 0.1 Th/cmm (0.3-1.0); PLATELET COUNT 209 Th/cmm (150-400); RED BLOOD COUNT 3.16 Mil/cmm (4.30-5.70); RED CELL DISTRIBUTION WIDTH 16.3 % (11.5-20.0); WHITE BLOOD COUNT 10.4 Th/cmm (4.8-10.8)
[2017-06-14 06:31] LABS: HEMATOCRIT 28.5 % (41.0-60)
[2017-06-14 06:44] LABS: BAND NEUTROPHILE 3 % (0-10); LYMPHOCYTE 3 % (20-50); MONOCYTE 1 % (2-10); NEUTROPHILS 93 % (40-80); TOTAL CELLS COUNTED 100
[2017-06-14 06:45] LABS: PLATELET ESTIMATE ADEQUATE (NORMAL)
[2017-06-14 06:52] LABS: BUN - UREA NITROGEN 26 mg/dL (7-25); CALCIUM SERUM 7.8 mg/dL (8.6-10.3); CARBON DIOXIDE 28.3 mEq/L (21.0-31.0); CHLORIDE 106 mEq/L (98-107); CREATININE - SERUM 0.2 mg/dL (0.7-1.3); GFR AFRICAN-AMERICAN > 60.0 ml/min (>90); GFR NON AFRICAN-AMERICAN > 60.0 ml/min; GLUCOSE 130 mg/dL (70-105); POTASSIUM SERUM 4.3 mEq/L (3.5-5.1); SODIUM SERUM 139 mEq/L (136-145)
[2017-06-14] MEDS ORDERED: fentaNYL Citrate 100 mcg/2mL Vial ONE (08:03)
[2017-06-14] MEDS ORDERED: Venelex 60gm Tube TP ONE (08:20)
[2017-06-14] MEDS ORDERED: Propofol 10 mg/mL 20mL Vial **SURGERY USE ONLY IV ONE (09:59)
[2017-06-14] MEDS: Multivitamin Tab GT SCH (10:10)
[2017-06-14] MEDS: Venelex 60gm Tube TP SCH ×2 (10:10→16:10)
[2017-06-14] MEDS: Lactulose 10 Gm/15 mL 30mL UDC PO SCH ×2 (10:11→16:11)
--- NOTE | 2017-06-14 10:38 | Diagnostic Imaging Report ---
Portable chest x-ray HISTORY: Increased shortness of breath, status post intubation Compared with the prior exam of June 13, 2017, persistent infiltrate is seen within the left lower lobe. Question of faint infiltrate in the right lower lobe. An endotracheal tube tip is approximately 3.0 cm above the reji. IMPRESSION: 1. Status post intubation 2. Persistent infiltrate left lower lobe 2. Questionable infiltrate within the right lower lobe.
[2017-06-14 12:17] LABS: pH 7.47 (7.35-7.45)
[2017-06-14 12:18] LABS: ALLEN TEST YES
--- NOTE | 2017-06-14 13:03 | Internal Medicine Prog Note ---
<Ekta Arevalo - Last Filed: 06/14/17 13:02> Internal Medicine Subjective - Subjective Service Date: 06/14/17 (now in icu orally intubated placed on vent, s/p wound debridement and colostomy ) Patient seen and examined:: with staff Patient is:: awake, non-verbal, non-interactive, in bed Patient Complaints of:: congestion Per staff patient has:: no adverse event, tolerating meds Internal Medicine Objective - Results Result Diagrams: 06/14/17 06:20 06/14/17 06:20 Recent Labs: Laboratory Last Values WBC 10.4 Th/cmm (4.8-10.8) 06/14/17 06:20 RBC 3.16 Mil/cmm (4.30-5.70) L 06/14/17 06:20 Hgb 9.7 gm/dL (12-16) L 06/14/17 06:20 Hct 28.5 % (41.0-60) L D 06/14/17 06:20 MCV 90.2 fl (80-99) 06/14/17 06:20 MCH 30.8 pg (26.0-30.0) H 06/14/17 06:20 MCHC Differential 34.2 pg (28.0-36.0) 06/14/17 06:20 RDW 16.3 % (11.5-20.0) 06/14/17 06:20 Plt Count 209 Th/cmm (150-400) 06/14/17 06:20 MPV 7.2 fl 06/14/17 06:20 Neutrophils % 89.7 % (40.0-80.0) H 06/05/17 05:48 Band Neutrophils % 3 % (0-10) 06/14/17 06:20 Lymphocytes % 6.6 % (20.0-50.0) L 06/05/17 05:48 Monocytes % 3.6 % (2.0-10.0) 06/05/17 05:48 Eosinophils % 0.1 % (0.0-5.0) 06/05/17 05:48 Basophils % 0.0 % (0.0-2.0) 06/05/17 05:48 Neutrophils (Manual) 93 % (40-80) H 06/14/17 06:20 Lymphocytes 3 % (20-50) L 06/14/17 06:20 Monocytes 1 % (2-10) L 06/14/17 06:20 Platelet Estimate ADEQUATE (NORMAL) 06/14/17 06:20 PT 11.3 SECONDS (9.5-11.5) 06/11/17 06:10 INR 1.09 (0.5-1.4) 06/11/17 06:10 PTT (Actin FS) 23.1 SECONDS (26.0-38.0) L 06/11/17 06:10 Specimen Source Arterial 06/14/17 12:10 Sample Site Right Radial 06/14/17 12:10 pH 7.47 (7.35-7.45) H 06/14/17 12:10 pCO2 43.0 mmHg (35.0-45.0) 06/14/17 12:10 pO2 228.0 mmHg (80.0-100.0) H 06/14/17 12:10 HCO3 30.3 mEq/L (20.0-26.0) H 06/14/17 12:10 Base Excess 6.8 mEq/L (-3.0-3.0) H 06/14/17 12:10 O2 Saturation 100.0 % (92.0-100.0) 06/14/17 12:10 Endy Test YES 06/14/17 12:10 Vent Rate 12 06/14/17 12:10 Inspired O2 100 06/14/17 12:10 Tidal Volume 500 06/14/17 12:10 PEEP 5 06/14/17 12:10 Pressure (ins/psv/peep) NA 06/14/17 12:10 Critical Value E.BABCOCK 06/14/17 12:10 Sodium 139 mEq/L (136-145) 06/14/17 06:20 Potassium 4.3 mEq/L (3.5-5.1) 06/14/17 06:20 Chloride 106 mEq/L (98-107) 06/14/17 06:20 Carbon Dioxide 28.3 mEq/L (21.0-31.0) 06/14/17 06:20 Anion Gap 9.0 (7.0-16.0) 06/14/17 06:20 BUN 26 mg/dL (7-25) H 06/14/17 06:20 Creatinine 0.2 mg/dL (0.7-1.3) L 06/14/17 06:20 Est GFR ( Amer) > 60.0 ml/min (>90) 06/14/17 06:20 Est GFR (Non-Af Amer) > 60.0 ml/min 06/14/17 06:20 BUN/Creatinine Ratio 130.0 06/14/17 06:20 Glucose 130 mg/dL (70-105) H 06/14/17 06:20 POC Glucose 124 MG/DL (70 - 105) H 06/14/17 05:50 Hemoglobin A1c % 5.1 % (4.0-6.0) 06/01/17 05:30 Whole Bld Lactic Acid 3.45 mmol/L (0.60-1.99) H* 06/03/17 06:45 Calcium 7.8 mg/dL (8.6-10.3) L 06/14/17 06:20 Magnesium 2.1 mg/dL (1.9-2.7) 06/07/17 06:30 Total Bilirubin 0.6 mg/dL (0.3-1.0) 06/10/17 06:20 AST 38 U/L (13-39) 06/10/17 06:20 ALT 90 U/L (7-52) H 06/10/17 06:20 Alkaline Phosphatase 69 U/L (34-104) 06/10/17 06:20 Ammonia 64 umol/L (16-53) H 06/04/17 06:45 B-Natriuretic Peptide 129.0 pg/mL (5.0-100.0) H 06/04/17 06:45 Total Protein 4.3 gm/dL (6.0-8.3) L 06/10/17 06:20 Albumin 2.1 gm/dL (4.2-5.5) L 06/10/17 06:20 Globulin 2.2 gm/dL 06/10/17 06:20 Albumin/Globulin Ratio 1.0 (1.0-1.8) 06/10/17 06:20 TSH 0.72 uIU/ml (0.34-5.60) 06/01/17 05:30 Urine Source CATH 05/31/17 12:35 Urine Color YELLOW 05/31/17 12:35 Urine Clarity CLOUDY (CLEAR) 05/31/17 12:35 Urine pH 8.5 (4.6 - 8.0) 05/31/17 12:35 Ur Specific [place] 1.010 (1.005-1.030) 05/31/17 12:35 Urine Protein 30 mg/dL (NEGATIVE) H 05/31/17 12:35 Urine Glucose (UA) NEGATIVE mg/dL (NEGATIVE) 05/31/17 12:35 Urine Ketones NEGATIVE mg/dL (NEGATIVE) 05/31/17 12:35 Urine Blood MODERATE (NEGATIVE) H 05/31/17 12:35 Urine Nitrate NEGATIVE (NEGATIVE) 05/31/17 12:35 Urine Bilirubin NEGATIVE (NEGATIVE) 05/31/17 12:35 Urine Urobilinogen 0.2 E.U./dL (0.2 - 1.0) 05/31/17 12:35 Ur Leukocyte Esterase NEGATIVE (NEGATIVE) 05/31/17 12:35 Urine RBC >100 /hpf (0-5) H 05/31/17 12:35 Urine WBC 2-5 /hpf (0-5) H 05/31/17 12:35 Ur Epithelial Cells NONE SEEN /lpf (FEW) 05/31/17 12:35 Urine Bacteria NONE SEEN /hpf (NONE SEEN) 05/31/17 12:35 Stool Occult Blood NEGATIVE (NEGATIVE) 06/05/17 06:00 Gentamicin Peak 13.8 ug/ml (4.0-8.0) H 06/11/17 11:05 Gentamicin Trough 0.8 ug/ml (0.2-2.0) 06/11/17 08:00 Vancomycin Trough 10.7 ug/mL (10-20) 06/04/17 09:00 Hepatitis A IgM Ab Negative (Negative) 06/10/17 06:20 Hep Bs Antigen Negative (Negative) 06/10/17 06:20 Hep B Core IgM Ab Negative (Negative) 06/10/17 06:20 Hepatitis C Antibody 6.9 s/co ratio (0.0-0.9) H 06/10/17 06:20 Influenza A (Rapid) NEG FOR INF A 06/05/17 08:00 Influenza B (Rapid) NEG FOR INF B 06/05/17 08:00 Blood Type O POSITIVE 06/02/17 11:40 Antibody Screen NEGATIVE 06/02/17 11:40 Crossmatch See Detail 06/02/17 11:40 - Physical Exam Vitals and I&O: Vital Signs Temp 96.8 F 06/14/17 10:00 Pulse 80 06/14/17 12:00 Resp 14 06/14/17 12:00 BP 95/68 06/14/17 12:00 Pulse Ox 100 06/14/17 12:00 Intake & Output 06/13/17 06/14/17 06/14/17 18:59 06:59 18:59 Intake Total 203.25 1620 416.667 Output Total 1100 Balance 203.25 520 416.667 Weight (lbs) 128 lb 5 oz Intake: Intake, IV Amount 203.25 1100 416.667 D5-0.45NS 1,000 ml @ 50 1000 416.667 mls/hr IV .Q20H [facility] Rx#: [id number] Gentamicin 130 mg In 103.25 Sodium Chloride 0.9% 100 ml @ 100 mls/hr IV Q24H [facility] Rx#:[id number] Meropenem 1 gm In Sodium 100 100 Chloride 0.9% 100 ml @ 100 mls/hr IV Q8H [facility] Rx# :[id number] Tube Feeding 400 Other 120 Output: Urine 1100 Active Medications: Current Medications Acetaminophen (Tylenol 650mg Supp) 650 mg RC Q4HR PRN PRN Reason: FEVER >100.1 Stop: 07/30/17 13:39 Acetaminophen (Tylenol) 325 mg PO Q6H PRN PRN Reason: PAIN/FEVER Stop: 07/30/17 16:47 Last Admin: 06/11/17 22:06 Dose: 325 mg Acetylcysteine (Mucomyst 10%) 6 ml HHN Q4HRT [facility] Stop: 08/08/17 14:59 Last Admin: 06/14/17 11:07 Dose: 6 ml Albuterol Sulfate (Albuterol 2.5mg/3ml Neb Ud) 1.25 mg HHN Q4HRT [facility] Stop: 08/06/17 18:59 Last Admin: 06/14/17 11:07 Dose: 1.25 mg Ascorbic Acid (Vitamin C) 500 mg GT DAILY [facility] Stop: 07/31/17 08:59 Last Admin: 06/14/17 10:10 Dose: Not Given Bisacodyl (Dulcolax 10 Mg Supp) 10 mg RC Q72HR PRN PRN Reason: Constipation Stop: 07/30/17 13:39 [place] Oil/Uzbek Balsam/Trypsin (Venelex) 1 appl TP BID [facility] Stop: 07/31/17 16:59 Last Admin: 06/14/17 10:10 Dose: Not Given Chlorhexidine Gluconate (Peridex) 15 ml MM 0800,1999 [facility] Stop: 08/13/17 19:59 Cholecalciferol (Vitamin D3) 500 iu PO DAILY [facility] Stop: 07/31/17 08:59 Last Admin: 06/14/17 10:10 Dose: Not Given Diltiazem HCl (Cardizem) 5 mg IVP Q4H PRN PRN Reason: IF HR >120 Stop: 08/10/17 00:44 Last Admin: 06/13/17 18:11 Dose: 5 mg Famotidine (Pepcid) 20 mg IVP Q12H [facility] Stop: 07/31/17 12:44 Last Admin: 06/14/17 00:32 Dose: 20 mg Guaifenesin (Robitussin) 200 mg PO Q4HR PRN PRN Reason: Cough or Congestion Stop: 07/30/17 13:41 Last Admin: 06/10/17 20:59 Dose: 200 mg Heparin Sodium (Porcine) (Heparin) 5,000 units SUBQ Q12H [facility] Stop: 07/31/17 20:59 Last Admin: 06/14/17 10:11 Dose: Not Given Norepinephrine Bitartrate 4 mg (/ Dextrose) 254 mls @ 30.48 mls/hr IV TITR PRN ; Protocol; 8 MCG/MIN PRN Reason: BP MAINTENANCE (PER PROTOCOL) Stop: 07/31/17 16:46 Last Titration: 06/03/17 00:00 Dose: 0 mcg/min, 0 mls/hr Dextrose/Sodium Chloride (D5-0.45ns) 1,000 mls @ 50 mls/hr IV .Q20H [facility] Stop: 08/07/17 16:14 Last Admin: 06/14/17 10:53 Dose: 50 mls/hr Ipratropium [place] (Atrovent Neb 0.5mg/2.5ml) 0.5 mg HHN Q4HRT [facility] Stop: 08/06/17 18:59 Last Admin: 06/14/17 11:08 Dose: 0.5 mg Lactulose (Cephulac) 30 gm PO BID [facility] Stop: 08/03/17 16:59 Last Admin: 06/14/17 10:11 Dose: Not Given Methylprednisolone Sodium Succinate (Solu-Medrol) 40 mg IVP Q8HR [facility] Stop: 07/30/17 20:59 Last Admin: 06/14/17 05:07 Dose: 40 mg Midodrine (Proamatine) 5 mg PO TID [facility] Stop: 08/10/17 20:59 Last Admin: 06/14/17 10:11 Dose: Not Given Miscellaneous (Vte Chemical Prophylaxis Screen/ Admission) 1 ea PRN PRN PRN Reason: PROTOCOL Stop: 07/31/17 14:00 Miscellaneous (Probiotic Screen) 1 ea PRN PRN PRN Reason: PROTOCOL Stop: 07/31/17 16:02 Morphine Sulfate (Morphine) 2 mg IVP Q4HR PRN PRN Reason: Pain (Moderate) Stop: 08/13/17 10:37 Multivitamins/Vitamin C (Theragran) 1 tab GT DAILY [facility] Stop: 07/31/17 08:59 Last Admin: 06/14/17 10:10 Dose: Not Given Ondansetron HCl (Zofran) 4 mg IV Q8H PRN PRN Reason: Nausea / Vomiting Stop: 07/30/17 13:41 Sodium Phosphate (Fleet Enema) 133 ml RC DAILY PRN PRN Reason: Constipation Stop: 07/30/17 13:39 General: weak, congested HEENT: NC/AT, PERRLA Neck: No LAD, deformity Lungs: congested, rales, ronchi Cardiovascular: RRR, Normal S1, Normal S2, without murmur Abdomen: soft, non-tender, non-distended, +GT, positive bowel sound Extremities: excoriation, ecchymosis, contracture, deformity, atrophy Neurological: unable to follow command - Procedures Procedures: Procedures Procedure Code Date INSERT EMERGENCY AIRWAY 21374 05/31/17 INSERTION OF ENDOTRACHEAL AIRWAY INTO [place]HE[place], VIA OPENING [id number] 05/31/17 RESPIRATORY VENTILATION, GREATER THAN 96 CONSECUTIVE HOURS [id number] 05/31/17 VENT MGMT INPAT IN DAY 82793 05/31/17 Internal Medicine Assmt/Plan - Assessment Assessment: S/p cardiopulmonary arrest Multilobar PNA lactic acidosis Acute Respiratory Failure Sepsis PNA leukocytosis hypokalemia acute renal insufficiency spastic quadriplegia seizures s/p colostomy s/p wound debridement - Plan Plan: f/u cxr in am suction patient has needed vent support aspiration precautions inhalation treatments empiric ivantibiotics pulmo follow up continue current plan of care Nutritional Asmnt/Malnutr-PDOC - Dietary Evaluation Malnutrition Findings (Please click <Entered> for more info): Nutritional Asmnt/Malnutrition Start: 06/01/17 17: 31 Text: Status: Complete Freq: Document 06/01/17 17:31 [facility] (Rec: 06/01/17 17:45 HEN [id number]) Nutritional Asmnt/Malnutrition Patient General Information Nutritional Screening High Risk Consult Diagnosis renal failure, prespiratory failure r/o PNA Pertinent Medical Hx/Surgical Hx dementia, MR anemia, spastic quadriplegia, cerebral palsy, seizure, aspiration PNA, s/p respiratory failure, spsis, hyponatremia, gastroenteritis, PEG Subjective Information Consult received for Anibal 13 and pressure ulcer. Pt seen resting in bed at the time of visit, intubated, non-verbal noted. TF not running at this time. Current Diet Order/ Nutrition Support Isosource 1.5 87ml/hr x 17hr Pertinent Medications vitamin C, vitamin D3, D5w, teragran, piperacillin, miralax, cancomycin Pertinent Labs 1/ na 160, Cl 120, K 4.1, BUN 29, Cr 0.3, Glucose 242, A1c 5.1, Ca 8.4, Mg 2.8 Nutritional Hx/Data Height 5 ft 6 in Height (Calculated Centimeters) 167.6 Current Weight (lbs) 105 lb 8 oz Weight (Calculated Kilograms) 47.9 Weight (Calculated Grams) 38440.0 [place] Body Weight 142 % [place] Body Weight 94 Body Mass Index (BMI) 17.0 Weight Status Underweight GI Symptoms GI Symptoms None Last BM none Difficult in: None Usual diet at home Jevity 1.5 87ml/hr x 17hr Skin Integrity/Comment: decubitus ulceration to sacrum Estimated Nutritional Goals Calories/Kcals/Kg 25-30 Kcals Calculated [id number] based on IBW 65kg Protein g/k.2-1.4 Protein Calculated 78-91 consider respiratory failure and skin probelm Nutritional Problem 1. Problem Problem excessive intake from enteral feeding Etiology current TF regimen providing excessive calorie and protein than estimated nutritional needs Signs/Symptoms: current TF providing 114% of calorie needs and 110% of protein needs Malnutrition Alert Protein-Calorie Malnutrition N/A Is there a minimum of two criteria No selected? Query Text:Check all the applicable criteria. A minimum of two criteria are recommended for diagnosis of either severe or non-severe malnutrition. Intervention/Recommendation Comments 1. Recommend modify TF rate to 70ml/hr x 17hr to meet 100% of nutritional needs and avoid overfeeding. 2. Monitor TF rate, tolerance, wt weekly, skin integrity and labs 3. F/U as moderate risk in 3-5 days, 04/25-04/27 Expected Outcomes/Goals Expected Outcomes/Goals 1. Pt to meet 75-100% of nutritional needs via nutrition support with tolerance 2. 2. Wt stability, skin to remain intact, labs to approach WNL. <Skip Stephens - Last Filed: 06/14/17 13:14> Internal Medicine Objective - Results Result Diagrams: 06/14/17 06:20 06/14/17 06:20 Recent Labs: Laboratory Last Values WBC 10.4 Th/cmm (4.8-10.8) 06/14/17 06:20 RBC 3.16 Mil/cmm (4.30-5.70) L 06/14/17 06:20 Hgb 9.7 gm/dL (12-16) L 06/14/17 06:20 Hct 28.5 % (41.0-60) L D 06/14/17 06:20 MCV 90.2 fl (80-99) 06/14/17 06:20 MCH 30.8 pg (26.0-30.0) H 06/14/17 06:20 MCHC Differential 34.2 pg (28.0-36.0) 06/14/17 06:20 RDW 16.3 % (11.5-20.0) 06/14/17 06:20 Plt Count 209 Th/cmm (150-400) 06/14/17 06:20 MPV 7.2 fl 06/14/17 06:20 Neutrophils % 89.7 % (40.0-80.0) H 06/05/17 05:48 Band Neutrophils % 3 % (0-10) 06/14/17 06:20 Lymphocytes % 6.6 % (20.0-50.0) L 06/05/17 05:48 Monocytes % 3.6 % (2.0-10.0) 06/05/17 05:48 Eosinophils % 0.1 % (0.0-5.0) 06/05/17 05:48 Basophils % 0.0 % (0.0-2.0) 06/05/17 05:48 Neutrophils (Manual) 93 % (40-80) H 06/14/17 06:20 Lymphocytes 3 % (20-50) L 06/14/17 06:20 Monocytes 1 % (2-10) L 06/14/17 06:20 Platelet Estimate ADEQUATE (NORMAL) 06/14/17 06:20 PT 11.3 SECONDS (9.5-11.5) 06/11/17 06:10 INR 1.09 (0.5-1.4) 06/11/17 06:10 PTT (Actin FS) 23.1 SECONDS (26.0-38.0) L 06/11/17 06:10 Specimen Source Arterial 06/14/17 12:10 Sample Site Right Radial 06/14/17 12:10 pH 7.47 (7.35-7.45) H 06/14/17 12:10 pCO2 43.0 mmHg (35.0-45.0) 06/14/17 12:10 pO2 228.0 mmHg (80.0-100.0) H 06/14/17 12:10 HCO3 30.3 mEq/L (20.0-26.0) H 06/14/17 12:10 Base Excess 6.8 mEq/L (-3.0-3.0) H 06/14/17 12:10 O2 Saturation 100.0 % (92.0-100.0) 06/14/17 12:10 Endy Test YES 06/14/17 12:10 Vent Rate 12 06/14/17 12:10 Inspired O2 100 06/14/17 12:10 Tidal Volume 500 06/14/17 12:10 PEEP 5 06/14/17 12:10 Pressure (ins/psv/peep) NA 06/14/17 12:10 Critical Value E.BABCOCK 06/14/17 12:10 Sodium 139 mEq/L (136-145) 06/14/17 06:20 Potassium 4.3 mEq/L (3.5-5.1) 06/14/17 06:20 Chloride 106 mEq/L (98-107) 06/14/17 06:20 Carbon Dioxide 28.3 mEq/L (21.0-31.0) 06/14/17 06:20 Anion Gap 9.0 (7.0-16.0) 06/14/17 06:20 BUN 26 mg/dL (7-25) H 06/14/17 06:20 Creatinine 0.2 mg/dL (0.7-1.3) L 06/14/17 06:20 Est GFR ( Amer) > 60.0 ml/min (>90) 06/14/17 06:20 Est GFR (Non-Af Amer) > 60.0 ml/min 06/14/17 06:20 BUN/Creatinine Ratio 130.0 06/14/17 06:20 Glucose 130 mg/dL (70-105) H 06/14/17 06:20 POC Glucose 124 MG/DL (70 - 105) H 06/14/17 05:50 Hemoglobin A1c % 5.1 % (4.0-6.0) 06/01/17 05:30 Whole Bld Lactic Acid 3.45 mmol/L (0.60-1.99) H* 06/03/17 06:45 Calcium 7.8 mg/dL (8.6-10.3) L 06/14/17 06:20 Magnesium 2.1 mg/dL (1.9-2.7) 06/07/17 06:30 Total Bilirubin 0.6 mg/dL (0.3-1.0) 06/10/17 06:20 AST 38 U/L (13-39) 06/10/17 06:20 ALT 90 U/L (7-52) H 06/10/17 06:20 Alkaline Phosphatase 69 U/L (34-104) 06/10/17 06:20 Ammonia 64 umol/L (16-53) H 06/04/17 06:45 B-Natriuretic Peptide 129.0 pg/mL (5.0-100.0) H 06/04/17 06:45 Total Protein 4.3 gm/dL (6.0-8.3) L 06/10/17 06:20 Albumin 2.1 gm/dL (4.2-5.5) L 06/10/17 06:20 Globulin 2.2 gm/dL 06/10/17 06:20 Albumin/Globulin Ratio 1.0 (1.0-1.8) 06/10/17 06:20 TSH 0.72 uIU/ml (0.34-5.60) 06/01/17 05:30 Urine Source CATH 05/31/17 12:35 Urine Color YELLOW 05/31/17 12:35 Urine Clarity CLOUDY (CLEAR) 05/31/17 12:35 Urine pH 8.5 (4.6 - 8.0) 05/31/17 12:35 Ur Specific [place] 1.010 (1.005-1.030) 05/31/17 12:35 Urine Protein 30 mg/dL (NEGATIVE) H 05/31/17 12:35 Urine Glucose (UA) NEGATIVE mg/dL (NEGATIVE) 05/31/17 12:35 Urine Ketones NEGATIVE mg/dL (NEGATIVE) 05/31/17 12:35 Urine Blood MODERATE (NEGATIVE) H 05/31/17 12:35 Urine Nitrate NEGATIVE (NEGATIVE) 05/31/17 12:35 Urine Bilirubin NEGATIVE (NEGATIVE) 05/31/17 12:35 Urine Urobilinogen 0.2 E.U./dL (0.2 - 1.0) 05/31/17 12:35 Ur Leukocyte Esterase NEGATIVE (NEGATIVE) 05/31/17 12:35 Urine RBC >100 /hpf (0-5) H 05/31/17 12:35 Urine WBC 2-5 /hpf (0-5) H 05/31/17 12:35 Ur Epithelial Cells NONE SEEN /lpf (FEW) 05/31/17 12:35 Urine Bacteria NONE SEEN /hpf (NONE SEEN) 05/31/17 12:35 Stool Occult Blood NEGATIVE (NEGATIVE) 06/05/17 06:00 Gentamicin Peak 13.8 ug/ml (4.0-8.0) H 06/11/17 11:05 Gentamicin Trough 0.8 ug/ml (0.2-2.0) 06/11/17 08:00 Vancomycin Trough 10.7 ug/mL (10-20) 06/04/17 09:00 Hepatitis A IgM Ab Negative (Negative) 06/10/17 06:20 Hep Bs Antigen Negative (Negative) 06/10/17 06:20 Hep B Core IgM Ab Negative (Negative) 06/10/17 06:20 Hepatitis C Antibody 6.9 s/co ratio (0.0-0.9) H 06/10/17 06:20 Influenza A (Rapid) NEG FOR INF A 06/05/17 08:00 Influenza B (Rapid) NEG FOR INF B 06/05/17 08:00 Blood Type O POSITIVE 06/02/17 11:40 Antibody Screen NEGATIVE 06/02/17 11:40 Crossmatch See Detail 06/02/17 11:40 - Physical Exam Vitals and I&O: Vital Signs Temp 96.8 F 06/14/17 10:00 Pulse 80 06/14/17 12:00 Resp 14 06/14/17 12:00 BP 95/68 06/14/17 12:00 Pulse Ox 100 06/14/17 12:00 Intake & Output 06/13/17 06/14/17 06/14/17 18:59 06:59 18:59 Intake Total 203.25 1620 416.667 Output Total 1100 Balance 203.25 520 416.667 Weight (lbs) 58.202 kg Intake: Intake, IV Amount 203.25 1100 416.667 D5-0.45NS 1,000 ml @ 50 1000 416.667 mls/hr IV .Q20H [facility] Rx#: [id number] Gentamicin 130 mg In 103.25 Sodium Chloride 0.9% 100 ml @ 100 mls/hr IV Q24H [facility] Rx#:[id number] Meropenem 1 gm In Sodium 100 100 Chloride 0.9% 100 ml @ 100 mls/hr IV Q8H [facility] Rx# :[id number] Tube Feeding 400 Other 120 Output: Urine 1100 Active Medications: Current Medications Acetaminophen (Tylenol 650mg Supp) 650 mg RC Q4HR PRN PRN Reason: FEVER >100.1 Stop: 07/30/17 13:39 Acetaminophen (Tylenol) 325 mg PO Q6H PRN PRN Reason: PAIN/FEVER Stop: 07/30/17 16:47 Last Admin: 06/11/17 22:06 Dose: 325 mg Acetylcysteine (Mucomyst 10%) 6 ml HHN Q4HRT [facility] Stop: 08/08/17 14:59 Last Admin: 06/14/17 11:07 Dose: 6 ml Albuterol Sulfate (Albuterol 2.5mg/3ml Neb Ud) 1.25 mg HHN Q4HRT [facility] Stop: 08/06/17 18:59 Last Admin: 06/14/17 11:07 Dose: 1.25 mg Ascorbic Acid (Vitamin C) 500 mg GT DAILY [facility] Stop: 07/31/17 08:59 Last Admin: 06/14/17 10:10 Dose: Not Given Bisacodyl (Dulcolax 10 Mg Supp) 10 mg RC Q72HR PRN PRN Reason: Constipation Stop: 07/30/17 13:39 [place] Oil/Uzbek Balsam/Trypsin (Venelex) 1 appl TP BID [facility] Stop: 07/31/17 16:59 Last Admin: 06/14/17 10:10 Dose: Not Given Chlorhexidine Gluconate (Peridex) 15 ml MM 0800,1999 [facility] Stop: 08/13/17 19:59 Cholecalciferol (Vitamin D3) 500 iu PO DAILY [facility] Stop: 07/31/17 08:59 Last Admin: 06/14/17 10:10 Dose: Not Given Diltiazem HCl (Cardizem) 5 mg IVP Q4H PRN PRN Reason: IF HR >120 Stop: 08/10/17 00:44 Last Admin: 06/13/17 18:11 Dose: 5 mg Famotidine (Pepcid) 20 mg IVP Q12H [facility] Stop: 07/31/17 12:44 Last Admin: 06/14/17 00:32 Dose: 20 mg Guaifenesin (Robitussin) 200 mg PO Q4HR PRN PRN Reason: Cough or Congestion Stop: 07/30/17 13:41 Last Admin: 06/10/17 20:59 Dose: 200 mg Heparin Sodium (Porcine) (Heparin) 5,000 units SUBQ Q12H [facility] Stop: 07/31/17 20:59 Last Admin: 06/14/17 10:11 Dose: Not Given Norepinephrine Bitartrate 4 mg (/ Dextrose) 254 mls @ 30.48 mls/hr IV TITR PRN ; Protocol; 8 MCG/MIN PRN Reason: BP MAINTENANCE (PER PROTOCOL) Stop: 07/31/17 16:46 Last Titration: 06/03/17 00:00 Dose: 0 mcg/min, 0 mls/hr Dextrose/Sodium Chloride (D5-0.45ns) 1,000 mls @ 80 mls/hr IV .[id number] [facility] Stop: 08/07/17 16:14 Ipratropium [place] (Atrovent Neb 0.5mg/2.5ml) 0.5 mg HHN Q4HRT [facility] Stop: 08/06/17 18:59 Last Admin: 06/14/17 11:08 Dose: 0.5 mg Lactulose (Cephulac) 30 gm PO BID [facility] Stop: 08/03/17 16:59 Last Admin: 06/14/17 10:11 Dose: Not Given Methylprednisolone Sodium Succinate (Solu-Medrol) 40 mg IVP Q8HR [facility] Stop: 07/30/17 20:59 Last Admin: 06/14/17 05:07 Dose: 40 mg Midodrine (Proamatine) 5 mg PO TID [facility] Stop: 08/10/17 20:59 Last Admin: 06/14/17 10:11 Dose: Not Given Miscellaneous (Vte Chemical Prophylaxis Screen/ Admission) 1 ea PRN PRN PRN Reason: PROTOCOL Stop: 07/31/17 14:00 Miscellaneous (Probiotic Screen) 1 ea PRN PRN PRN Reason: PROTOCOL Stop: 07/31/17 16:02 Morphine Sulfate (Morphine) 2 mg IVP Q4HR PRN PRN Reason: Pain (Moderate) Stop: 08/13/17 10:37 Multivitamins/Vitamin C (Theragran) 1 tab GT DAILY [facility] Stop: 07/31/17 08:59 Last Admin: 06/14/17 10:10 Dose: Not Given Ondansetron HCl (Zofran) 4 mg IV Q8H PRN PRN Reason: Nausea / Vomiting Stop: 07/30/17 13:41 Sodium Phosphate (Fleet Enema) 133 ml RC DAILY PRN PRN Reason: Constipation Stop: 07/30/17 13:39 - Procedures Procedures: Procedures Procedure Code Date INSERT EMERGENCY AIRWAY 60282 05/31/17 INSERTION OF ENDOTRACHEAL AIRWAY INTO TRACHEA, VIA OPENING [id number] 05/31/17 RESPIRATORY VENTILATION, GREATER THAN 96 CONSECUTIVE HOURS [id number] 05/31/17 VENT MGMT INPAT INIT DAY 97358 05/31/17 Internal Medicine Assmt/Plan - Plan Plan: addendum spoke w father and mother on vent, unable to be wean off post sx dw anesthesia, dr english, will confer w dr dmitri jasso rn Nutritional Asmnt/Malnutr-PDOC - Dietary Evaluation Malnutrition Findings (Please click <Entered> for more info): Nutritional Asmnt/Malnutrition Start: 06/01/17 17: 31 Text: Status: Complete Freq: Document 06/01/17 17:31 LCHENG (Rec: 06/01/17 17:45 LCHENG [id number]) Nutritional Asmnt/Malnutrition Patient General Information Nutritional Screening High Risk Consult Diagnosis renal failure, prespiratory failure r/o PNA Pertinent Medical Hx/Surgical Hx dementia, MR anemia, spastic quadriplegia, cerebral palsy, seizure, aspiration PNA, s/p respiratory failure, spsis, hyponatremia, gastroenteritis, PEG Subjective Information Consult received for Anibal 13 and pressure ulcer. Pt seen resting in bed at the time of visit, intubated, non-verbal noted. TF not running at this time. Current Diet Order/ Nutrition Support Isosource 1.5 87ml/hr x 17hr Pertinent Medications vitamin C, vitamin D3, D5w, teragran, piperacillin, miralax, cancomycin Pertinent Labs 06/01 na 160, Cl 120, K 4.1, BUN 29, Cr 0.3, Glucose 242, A1c 5.1, Ca 8.4, Mg 2.8 Nutritional Hx/Data Height 1.68 m Height (Calculated Centimeters) 167.6 Current Weight (lbs) 47.854 kg Weight (Calculated Kilograms) 47.9 Weight (Calculated Grams) 16271.0 [place] Body Weight 142 % [place] Body Weight 94 Body Mass Index (BMI) 17.0 Weight Status Underweight GI Symptoms GI Symptoms None Last BM none Difficult in: None Usual diet at home Jevity 1.5 87ml/hr x 17hr Skin Integrity/Comment: decubitus ulceration to sacrum Estimated Nutritional Goals Calories/Kcals/Kg 25-30 Kcals Calculated [id number] based on IBW 65kg Protein g/k.2-1.4 Protein Calculated 78-91 consider respiratory failure and skin probelm Nutritional Problem 1. Problem Problem excessive intake from enteral feeding Etiology current TF regimen providing excessive calorie and protein than estimated nutritional needs Signs/Symptoms: current TF providing 114% of calorie needs and 110% of protein needs Malnutrition Alert Protein-Calorie Malnutrition N/A Is there a minimum of two criteria No selected? Query Text:Check all the applicable criteria. A minimum of two criteria are recommended for diagnosis of either severe or non-severe malnutrition. Intervention/Recommendation Comments 1. Recommend modify TF rate to 70ml/hr x 17hr to meet 100% of nutritional needs and avoid overfeeding. 2. Monitor TF rate, tolerance, wt weekly, skin integrity and labs 3. F/U as moderate risk in 3-5 days, 04/25-04/27 Expected Outcomes/Goals Expected Outcomes/Goals 1. Pt to meet 75-100% of nutritional needs via nutrition support with tolerance 2. 2. Wt stability, skin to remain intact, labs to approach WNL.
[2017-06-14] MEDS: Chlorhexidine Gluconate 0.12% 15mL Mouthwash MM SCH (20:30)
--- NOTE | 2017-06-14 23:57 | Infectious Disease Prog Note ---
Infectious Disease Subjective - Review of Systems Service Date: 06/14/17 Subjective: No fever. Doing better now Infectious Disease Objective - Results Result Diagrams: 06/14/17 06:20 06/14/17 06:20 Recent Labs: Laboratory Last Values WBC 10.4 Th/cmm (4.8-10.8) 06/14/17 06:20 RBC 3.16 Mil/cmm (4.30-5.70) L 06/14/17 06:20 Hgb 9.7 gm/dL (12-16) L 06/14/17 06:20 Hct 28.5 % (41.0-60) L D 06/14/17 06:20 MCV 90.2 fl (80-99) 06/14/17 06:20 MCH 30.8 pg (26.0-30.0) H 06/14/17 06:20 MCHC Differential 34.2 pg (28.0-36.0) 06/14/17 06:20 RDW 16.3 % (11.5-20.0) 06/14/17 06:20 Plt Count 209 Th/cmm (150-400) 06/14/17 06:20 MPV 7.2 fl 06/14/17 06:20 Neutrophils % 89.7 % (40.0-80.0) H 06/05/17 05:48 Band Neutrophils % 3 % (0-10) 06/14/17 06:20 Lymphocytes % 6.6 % (20.0-50.0) L 06/05/17 05:48 Monocytes % 3.6 % (2.0-10.0) 06/05/17 05:48 Eosinophils % 0.1 % (0.0-5.0) 06/05/17 05:48 Basophils % 0.0 % (0.0-2.0) 06/05/17 05:48 Neutrophils (Manual) 93 % (40-80) H 06/14/17 06:20 Lymphocytes 3 % (20-50) L 06/14/17 06:20 Monocytes 1 % (2-10) L 06/14/17 06:20 Platelet Estimate ADEQUATE (NORMAL) 06/14/17 06:20 PT 11.3 SECONDS (9.5-11.5) 06/11/17 06:10 INR 1.09 (0.5-1.4) 06/11/17 06:10 PTT (Actin FS) 23.1 SECONDS (26.0-38.0) L 06/11/17 06:10 Specimen Source Arterial 06/14/17 12:10 Sample Site Right Radial 06/14/17 12:10 pH 7.47 (7.35-7.45) H 06/14/17 12:10 pCO2 43.0 mmHg (35.0-45.0) 06/14/17 12:10 pO2 228.0 mmHg (80.0-100.0) H 06/14/17 12:10 HCO3 30.3 mEq/L (20.0-26.0) H 06/14/17 12:10 Base Excess 6.8 mEq/L (-3.0-3.0) H 06/14/17 12:10 O2 Saturation 100.0 % (92.0-100.0) 06/14/17 12:10 Endy Test YES 06/14/17 12:10 Vent Rate 12 06/14/17 12:10 Inspired O2 100 06/14/17 12:10 Tidal Volume 500 06/14/17 12:10 PEEP 5 06/14/17 12:10 Pressure (ins/psv/peep) NA 06/14/17 12:10 Critical Value E.BABCOCK 06/14/17 12:10 Sodium 139 mEq/L (136-145) 06/14/17 06:20 Potassium 4.3 mEq/L (3.5-5.1) 06/14/17 06:20 Chloride 106 mEq/L (98-107) 06/14/17 06:20 Carbon Dioxide 28.3 mEq/L (21.0-31.0) 06/14/17 06:20 Anion Gap 9.0 (7.0-16.0) 06/14/17 06:20 BUN 26 mg/dL (7-25) H 06/14/17 06:20 Creatinine 0.2 mg/dL (0.7-1.3) L 06/14/17 06:20 Est GFR ( Amer) > 60.0 ml/min (>90) 06/14/17 06:20 Est GFR (Non-Af Amer) > 60.0 ml/min 06/14/17 06:20 BUN/Creatinine Ratio 130.0 06/14/17 06:20 Glucose 130 mg/dL (70-105) H 06/14/17 06:20 POC Glucose 124 MG/DL (70 - 105) H 06/14/17 05:50 Hemoglobin A1c % 5.1 % (4.0-6.0) 06/01/17 05:30 Whole Bld Lactic Acid 3.45 mmol/L (0.60-1.99) H* 06/03/17 06:45 Calcium 7.8 mg/dL (8.6-10.3) L 06/14/17 06:20 Magnesium 2.1 mg/dL (1.9-2.7) 06/07/17 06:30 Total Bilirubin 0.6 mg/dL (0.3-1.0) 06/10/17 06:20 AST 38 U/L (13-39) 06/10/17 06:20 ALT 90 U/L (7-52) H 06/10/17 06:20 Alkaline Phosphatase 69 U/L (34-104) 06/10/17 06:20 Ammonia 64 umol/L (16-53) H 06/04/17 06:45 B-Natriuretic Peptide 129.0 pg/mL (5.0-100.0) H 06/04/17 06:45 Total Protein 4.3 gm/dL (6.0-8.3) L 06/10/17 06:20 Albumin 2.1 gm/dL (4.2-5.5) L 06/10/17 06:20 Globulin 2.2 gm/dL 06/10/17 06:20 Albumin/Globulin Ratio 1.0 (1.0-1.8) 06/10/17 06:20 TSH 0.72 uIU/ml (0.34-5.60) 06/01/17 05:30 Urine Source CATH 05/31/17 12:35 Urine Color YELLOW 05/31/17 12:35 Urine Clarity CLOUDY (CLEAR) 05/31/17 12:35 Urine pH 8.5 (4.6 - 8.0) 05/31/17 12:35 Ur Specific [place] 1.010 (1.005-1.030) 05/31/17 12:35 Urine Protein 30 mg/dL (NEGATIVE) H 05/31/17 12:35 Urine Glucose (UA) NEGATIVE mg/dL (NEGATIVE) 05/31/17 12:35 Urine Ketones NEGATIVE mg/dL (NEGATIVE) 05/31/17 12:35 Urine Blood MODERATE (NEGATIVE) H 05/31/17 12:35 Urine Nitrate NEGATIVE (NEGATIVE) 05/31/17 12:35 Urine Bilirubin NEGATIVE (NEGATIVE) 05/31/17 12:35 Urine Urobilinogen 0.2 E.U./dL (0.2 - 1.0) 05/31/17 12:35 Ur Leukocyte Esterase NEGATIVE (NEGATIVE) 05/31/17 12:35 Urine RBC >100 /hpf (0-5) H 05/31/17 12:35 Urine WBC 2-5 /hpf (0-5) H 05/31/17 12:35 Ur Epithelial Cells NONE SEEN /lpf (FEW) 05/31/17 12:35 Urine Bacteria NONE SEEN /hpf (NONE SEEN) 05/31/17 12:35 Stool Occult Blood NEGATIVE (NEGATIVE) 06/05/17 06:00 Gentamicin Peak 13.8 ug/ml (4.0-8.0) H 06/11/17 11:05 Gentamicin Trough 0.8 ug/ml (0.2-2.0) 06/11/17 08:00 Vancomycin Trough 10.7 ug/mL (10-20) 06/04/17 09:00 Hepatitis A IgM Ab Negative (Negative) 06/10/17 06:20 Hep Bs Antigen Negative (Negative) 06/10/17 06:20 Hep B Core IgM Ab Negative (Negative) 06/10/17 06:20 Hepatitis C Antibody 6.9 s/co ratio (0.0-0.9) H 06/10/17 06:20 Influenza A (Rapid) NEG FOR INF A 06/05/17 08:00 Influenza B (Rapid) NEG FOR INF B 06/05/17 08:00 Blood Type O POSITIVE 06/02/17 11:40 Antibody Screen NEGATIVE 06/02/17 11:40 Crossmatch See Detail 06/02/17 11:40 - Physical Exam Vitals and I&O: Vital Signs Temp 97.8 F 06/14/17 20:00 Pulse 101 06/14/17 23:24 Resp 10 06/14/17 22:00 BP 97/60 06/14/17 22:00 Pulse Ox 97 06/14/17 23:24 Intake & Output 06/14/17 06/14/17 06/15/17 06:59 18:59 06:59 Intake Total 1620 416.667 Output Total 1100 610 Balance 520 -193.333 Weight (lbs) 58.202 kg 58.202 kg Intake: Intake, IV Amount 1100 416.667 D5-0.45NS 1,000 ml @ 50 1000 416.667 mls/hr IV .Q20H [facility] Rx#: [id number] Meropenem 1 gm In Sodium 100 Chloride 0.9% 100 ml @ 100 mls/hr IV Q8H [facility] Rx# :[id number] Oral 0 Tube Feeding 400 Other 120 Output: Urine 1100 600 Stool 10 Other: Stool Characteristics Liquid Liquid Brown Brown Active Medications: Current Medications Acetaminophen (Tylenol 650mg Supp) 650 mg RC Q4HR PRN PRN Reason: FEVER >100.1 Stop: 07/30/17 13:39 Acetaminophen (Tylenol) 325 mg PO Q6H PRN PRN Reason: PAIN/FEVER Stop: 07/30/17 16:47 Last Admin: 06/11/17 22:06 Dose: 325 mg Acetylcysteine (Mucomyst 10%) 6 ml HHN Q4HRT [facility] Stop: 08/08/17 14:59 Last Admin: 06/14/17 18:36 Dose: 6 ml Albuterol Sulfate (Albuterol 2.5mg/3ml Neb Ud) 1.25 mg HHN Q4HRT [facility] Stop: 08/06/17 18:59 Last Admin: 06/14/17 23:23 Dose: 1.25 mg Ascorbic Acid (Vitamin C) 500 mg GT DAILY [facility] Stop: 07/31/17 08:59 Last Admin: 06/14/17 10:10 Dose: Not Given Bisacodyl (Dulcolax 10 Mg Supp) 10 mg RC Q72HR PRN PRN Reason: Constipation Stop: 07/30/17 13:39 [place] Oil/[place] Balsam/Trypsin (Venelex) 1 appl TP BID [facility] Stop: 07/31/17 16:59 Last Admin: 06/14/17 16:10 Dose: Not Given Chlorhexidine Gluconate (Peridex) 15 ml MM 0800,2000 [facility] Stop: 08/13/17 19:59 Last Admin: 06/14/17 20:30 Dose: 15 ml Cholecalciferol (Vitamin D3) 500 iu PO DAILY [facility] Stop: 07/31/17 08:59 Last Admin: 06/14/17 10:10 Dose: Not Given Diltiazem HCl (Cardizem) 5 mg IVP Q4H PRN PRN Reason: IF HR >120 Stop: 08/10/17 00:44 Last Admin: 06/13/17 18:11 Dose: 5 mg Famotidine (Pepcid) 20 mg IVP Q12H [facility] Stop: 07/31/17 12:44 Last Admin: 06/14/17 14:14 Dose: 20 mg Guaifenesin (Robitussin) 200 mg PO Q4HR PRN PRN Reason: Cough or Congestion Stop: 07/30/17 13:41 Last Admin: 06/10/17 20:59 Dose: 200 mg Heparin Sodium (Porcine) (Heparin) 5,000 units SUBQ Q12H [facility] Stop: 07/31/17 20:59 Last Admin: 06/14/17 20:48 Dose: 5,000 units Norepinephrine Bitartrate 4 mg (/ Dextrose) 254 mls @ 30.48 mls/hr IV TITR PRN ; Protocol; 8 MCG/MIN PRN Reason: BP MAINTENANCE (PER PROTOCOL) Stop: 07/31/17 16:46 Last Titration: 06/03/17 00:00 Dose: 0 mcg/min, 0 mls/hr Dextrose/Sodium Chloride (D5-0.45ns) 1,000 mls @ 80 mls/hr IV .[id number] [facility] Stop: 08/07/17 16:14 Last Admin: 06/14/17 14:00 Dose: 80 mls/hr Ipratropium [place] (Atrovent Neb 0.5mg/2.5ml) 0.5 mg HHN Q4HRT [facility] Stop: 08/06/17 18:59 Last Admin: 06/14/17 23:23 Dose: 0.5 mg Lactulose (Cephulac) 30 gm PO BID [facility] Stop: 08/03/17 16:59 Last Admin: 06/14/17 16:11 Dose: Not Given Methylprednisolone Sodium Succinate (Solu-Medrol) 40 mg IVP Q8HR [facility] Stop: 07/30/17 20:59 Last Admin: 06/14/17 20:47 Dose: 40 mg Midodrine (Proamatine) 5 mg PO TID FERNANDO Stop: 08/10/17 20:59 Last Admin: 06/14/17 20:49 Dose: 5 mg Miscellaneous (Vte Chemical Prophylaxis Screen/ Admission) 1 ea MC PRN PRN PRN Reason: PROTOCOL Stop: 07/31/17 14:00 Miscellaneous (Probiotic Screen) 1 ea MC PRN PRN PRN Reason: PROTOCOL Stop: 07/31/17 16:02 Morphine Sulfate (Morphine) 2 mg IVP Q4HR PRN PRN Reason: Pain (Moderate) Stop: 08/13/17 10:37 Multivitamins/Vitamin C (Theragran) 1 tab GT DAILY [facility] Stop: 07/31/17 08:59 Last Admin: 06/14/17 10:10 Dose: Not Given Ondansetron HCl (Zofran) 4 mg IV Q8H PRN PRN Reason: Nausea / Vomiting Stop: 07/30/17 13:41 Sodium Phosphate (Fleet Enema) 133 ml RC DAILY PRN PRN Reason: Constipation Stop: 07/30/17 13:39 General: no acute distress, well developed, well nourished HEENT: atraumatic, normocephalic, PERRLA, EOMI Neck: supple, no thyromegaly Cardiovascular: S1S2, regular Lungs: clear to auscultation bilaterally, clear to percussion Abdomen: soft, no tender, no distended Extremities: no cyanosis, no clubbing, no edema Neurological: awake, alert - Procedures Procedures: Procedures Procedure Code Date INSERT EMERGENCY AIRWAY 20490 05/31/17 INSERTION OF ENDOTRACHEAL AIRWAY INTO [place]ACHEA, VIA OPENING [id number] 05/31/17 RESPIRATORY VENTILATION, GREATER THAN 96 CONSECUTIVE HOURS [id number] 05/31/17 VENT MGMT INPAT INIT DAY 74143 05/31/17 Infectious Disease Assmt/Plan - Problem List Patient Problems: All Active Problems COUGH AND CONGESTION (Acute) - Assessment Assessment: 1. Sepsis. treated. 2. G Tube site ESBL + E coli. treated 3. Pneumonia. treated. 4. Acute respiratory failure and went dependence. 5. Altered mental status unresponsiveness, likely secondary to toxic metabolic encephalopathy. improving. 6. Cerebral palsy. 7. Aspiration again. - Plan Plan: off antibiotics. there is no activity from ID point of view. I will s/o please call me as needed.. thank you. Nutritional Asmnt/Malnutr-PDOC - Dietary Evaluation Malnutrition Findings (Please click <Entered> for more info): Nutritional Asmnt/Malnutrition Start: 06/01/17 17: 31 Text: Status: Complete Freq: Document 06/01/17 17:31 LCHENG (Rec: 06/01/17 17:45 LCHENG [id number]) Nutritional Asmnt/Malnutrition Patient General Information Nutritional Screening High Risk Consult Diagnosis renal failure, prespiratory failure r/o PNA Pertinent Medical Hx/Surgical Hx dementia, MR anemia, spastic quadriplegia, cerebral palsy, seizure, aspiration PNA, s/p respiratory failure, spsis, hyponatremia, gastroenteritis, PEG Subjective Information Consult received for Anibal 13 and pressure ulcer. Pt seen resting in bed at the time of visit, intubated, non-verbal noted. TF not running at this time. Current Diet Order/ Nutrition Support Isosource 1.5 87ml/hr x 17hr Pertinent Medications vitamin C, vitamin D3, D5w, teragran, piperacillin, miralax, cancomycin Pertinent Labs 06/01 na 160, Cl 120, K 4.1, BUN 29, Cr 0.3, Glucose 242, A1c 5.1, Ca 8.4, Mg 2.8 Nutritional Hx/Data Height 1.68 m Height (Calculated Centimeters) 167.6 Current Weight (lbs) 47.854 kg Weight (Calculated Kilograms) 47.9 Weight (Calculated Grams) 46402.0 [place] Body Weight 142 % [place] Body Weight 94 Body Mass Index (BMI) 17.0 Weight Status Underweight GI Symptoms GI Symptoms None Last BM none Difficult in: None Usual diet at home Jevity 1.5 87ml/hr x 17hr Skin Integrity/Comment: decubitus ulceration to sacrum Estimated Nutritional Goals Calories/Kcals/Kg 25-30 Kcals Calculated [id number] based on IBW 65kg Protein g/k.2-1.4 Protein Calculated 78-91 consider respiratory failure and skin probelm Nutritional Problem 1. Problem Problem excessive intake from enteral feeding Etiology current TF regimen providing excessive calorie and protein than estimated nutritional needs Signs/Symptoms: current TF providing 114% of calorie needs and 110% of protein needs Malnutrition Alert Protein-Calorie Malnutrition N/A Is there a minimum of two criteria No selected? Query Text:Check all the applicable criteria. A minimum of two criteria are recommended for diagnosis of either severe or non-severe malnutrition. Intervention/Recommendation Comments 1. Recommend modify TF rate to 70ml/hr x 17hr to meet 100% of nutritional needs and avoid overfeeding. 2. Monitor TF rate, tolerance, wt weekly, skin integrity and labs 3. F/U as moderate risk in 3-5 days, 04/25-04/27 Expected Outcomes/Goals Expected Outcomes/Goals 1. Pt to meet 75-100% of nutritional needs via nutrition support with tolerance 2. 2. Wt stability, skin to remain intact, labs to approach WNL.
[2017-06-15] MEDS: D5-0.45NS 1,000 ML IV SCH ×3 (00:56→20:56)
[2017-06-15] MEDS: Ipratropium Neb 0.5 mg/2.5 mL UD HHN SCH ×6 (03:02→23:26)
[2017-06-15] MEDS: Albuterol Nebulizer 2.5mg/3mL HHN SCH ×6 (03:03→23:26)
[2017-06-15] MEDS: Acetylcysteine 10% 10 ML VIAL HHN SCH ×6 (03:04→23:26)
[2017-06-15] MEDS: Morphine Sulfate 2 mg/mL 1mL Syr IVP PRN ×2 (05:35→12:29)
[2017-06-15] MEDS: methylPREDNISolone SS 40 mg Vial IVP SCH ×3 (05:36→20:56)
[2017-06-15] MEDS: Diltiazem 5 mg/mL 5mL Vial IVP PRN (05:41)
[2017-06-15 06:22] LABS: HEMATOCRIT 31.3 % (41.0-60); HEMOGLOBIN 10.6 gm/dL (12-16); LYMPHOCYTE ABSOLUTE 0.3 Th/cmm (1.5-3.0); MEAN CELL VOLUME 91.2 fl (80-99); MEAN CORPUSCULAR HEMOGLOBIN 30.8 pg (26.0-30.0); MEAN CORPUSCULAR HGB CONC 33.8 pg (28.0-36.0); MEAN PLATELET VOLUME 7.5 fl; MONOCYTE ABSOLUTE 0.4 Th/cmm (0.3-1.0); NEUTROPHILE ABSOLUTE 10.5 Th/cmm (1.8-8.0); PLATELET COUNT 176 Th/cmm (150-400); RED BLOOD COUNT 3.43 Mil/cmm (4.30-5.70); RED CELL DISTRIBUTION WIDTH 16.9 % (11.5-20.0); WHITE BLOOD COUNT 11.2 Th/cmm (4.8-10.8)
[2017-06-15 06:38] LABS: ALBUMIN 2.1 gm/dL (4.2-5.5); ALKALINE PHOSPHATASE 61 U/L (34-104); ANION GAP 8.8 (7.0-16.0); BILIRUBIN,TOTAL 0.8 mg/dL (0.3-1.0); BUN - UREA NITROGEN 25 mg/dL (7-25); CALCIUM SERUM 7.7 mg/dL (8.6-10.3); CARBON DIOXIDE 26.6 mEq/L (21.0-31.0); CHLORIDE 99 mEq/L (98-107); CREATININE - SERUM 0.2 mg/dL (0.7-1.3); GFR AFRICAN-AMERICAN > 60.0 ml/min (>90); GFR NON AFRICAN-AMERICAN > 60.0 ml/min; GLUCOSE 160 mg/dL (70-105); POTASSIUM SERUM 4.4 mEq/L (3.5-5.1); SGOT 45 U/L (13-39); SGPT/ALT 98 U/L (7-52); SODIUM SERUM 130 mEq/L (136-145); TOTAL PROTEIN,SERUM 4.3 gm/dL (6.0-8.3)
[2017-06-15] MEDS: Chlorhexidine Gluconate 0.12% 15mL Mouthwash MM SCH ×2 (08:00→20:56)
--- NOTE | 2017-06-15 08:11 | Diagnostic Imaging Report ---
Exam: Portable chest x-ray HISTORY: Shortness of breath. Findings: Portable examination of the chest at 0755 hours reviewed compared to prior examination day earlier demonstrates increasing consolidation infiltrate the right base with superimposed right pleural effusion. Endotracheal tube is 4 cm above the reji. Mediastinal structures midline the heart is not enlarged. COPD changes are noted. The left lung parenchyma is well aerated. IMPRESSION: Increased right lower lobe infiltrate and effusion. COPD changes
[2017-06-15] MEDS ORDERED: Sodium Chloride 0.9% 500 ML IV ONE (08:38)
--- NOTE | 2017-06-15 08:50 | General Progress Note ---
Subjective - Review of Systems Service Date: 06/15/17 Events since last encounter: incision is clean colostomy bag changed tachy, low urine output fluid challenge, increase IV Objective - Results Result Diagrams: 06/15/17 06:00 06/15/17 06:00 Recent Labs: Laboratory Last Values WBC 11.2 Th/cmm (4.8-10.8) H 06/15/17 06:00 RBC 3.43 Mil/cmm (4.30-5.70) L 06/15/17 06:00 Hgb 10.6 gm/dL (12-16) L 06/15/17 06:00 Hct 31.3 % (41.0-60) L 06/15/17 06:00 MCV 91.2 fl (80-99) 06/15/17 06:00 MCH 30.8 pg (26.0-30.0) H 06/15/17 06:00 MCHC Differential 33.8 pg (28.0-36.0) 06/15/17 06:00 RDW 16.9 % (11.5-20.0) 06/15/17 06:00 Plt Count 176 Th/cmm (150-400) 06/15/17 06:00 MPV 7.5 fl 06/15/17 06:00 Neutrophils % 89.7 % (40.0-80.0) H 06/05/17 05:48 Band Neutrophils % 3 % (0-10) 06/14/17 06:20 Lymphocytes % 6.6 % (20.0-50.0) L 06/05/17 05:48 Monocytes % 3.6 % (2.0-10.0) 06/05/17 05:48 Eosinophils % 0.1 % (0.0-5.0) 06/05/17 05:48 Basophils % 0.0 % (0.0-2.0) 06/05/17 05:48 Neutrophils (Manual) 93 % (40-80) H 06/14/17 06:20 Lymphocytes 3 % (20-50) L 06/14/17 06:20 Monocytes 1 % (2-10) L 06/14/17 06:20 Platelet Estimate ADEQUATE (NORMAL) 06/14/17 06:20 PT 11.3 SECONDS (9.5-11.5) 06/11/17 06:10 INR 1.09 (0.5-1.4) 06/11/17 06:10 PTT (Actin FS) 23.1 SECONDS (26.0-38.0) L 06/11/17 06:10 Specimen Source Arterial 06/14/17 12:10 Sample Site Right Radial 06/14/17 12:10 pH 7.47 (7.35-7.45) H 06/14/17 12:10 pCO2 43.0 mmHg (35.0-45.0) 06/14/17 12:10 pO2 228.0 mmHg (80.0-100.0) H 06/14/17 12:10 HCO3 30.3 mEq/L (20.0-26.0) H 06/14/17 12:10 Base Excess 6.8 mEq/L (-3.0-3.0) H 06/14/17 12:10 O2 Saturation 100.0 % (92.0-100.0) 06/14/17 12:10 Endy Test YES 06/14/17 12:10 Vent Rate 12 06/14/17 12:10 Inspired O2 100 06/14/17 12:10 Tidal Volume 500 06/14/17 12:10 PEEP 5 06/14/17 12:10 Pressure (ins/psv/peep) NA 06/14/17 12:10 Critical Value E.BABCOCK 06/14/17 12:10 Sodium 130 mEq/L (136-145) L 06/15/17 06:00 Potassium 4.4 mEq/L (3.5-5.1) 06/15/17 06:00 Chloride 99 mEq/L (98-107) 06/15/17 06:00 Carbon Dioxide 26.6 mEq/L (21.0-31.0) 06/15/17 06:00 Anion Gap 8.8 (7.0-16.0) 06/15/17 06:00 BUN 25 mg/dL (7-25) 06/15/17 06:00 Creatinine 0.2 mg/dL (0.7-1.3) L 06/15/17 06:00 Est GFR ( Amer) > 60.0 ml/min (>90) 06/15/17 06:00 Est GFR (Non-Af Amer) > 60.0 ml/min 06/15/17 06:00 BUN/Creatinine Ratio 125.0 06/15/17 06:00 Glucose 160 mg/dL (70-105) H 06/15/17 06:00 POC Glucose 124 MG/DL (70 - 105) H 06/14/17 05:50 Hemoglobin A1c % 5.1 % (4.0-6.0) 06/01/17 05:30 Whole Bld Lactic Acid 3.45 mmol/L (0.60-1.99) H* 06/03/17 06:45 Calcium 7.7 mg/dL (8.6-10.3) L 06/15/17 06:00 Magnesium 2.1 mg/dL (1.9-2.7) 06/07/17 06:30 Total Bilirubin 0.8 mg/dL (0.3-1.0) 06/15/17 06:00 AST 45 U/L (13-39) H 06/15/17 06:00 ALT 98 U/L (7-52) H 06/15/17 06:00 Alkaline Phosphatase 61 U/L (34-104) 06/15/17 06:00 Ammonia 64 umol/L (16-53) H 06/04/17 06:45 B-Natriuretic Peptide 129.0 pg/mL (5.0-100.0) H 06/04/17 06:45 Total Protein 4.3 gm/dL (6.0-8.3) L 06/15/17 06:00 Albumin 2.1 gm/dL (4.2-5.5) L 06/15/17 06:00 Globulin 2.2 gm/dL 06/15/17 06:00 Albumin/Globulin Ratio 1.0 (1.0-1.8) 06/15/17 06:00 TSH 0.72 uIU/ml (0.34-5.60) 06/01/17 05:30 Urine Source CATH 05/31/17 12:35 Urine Color YELLOW 05/31/17 12:35 Urine Clarity CLOUDY (CLEAR) 05/31/17 12:35 Urine pH 8.5 (4.6 - 8.0) 05/31/17 12:35 Ur Specific [place] 1.010 (1.005-1.030) 05/31/17 12:35 Urine Protein 30 mg/dL (NEGATIVE) H 05/31/17 12:35 Urine Glucose (UA) NEGATIVE mg/dL (NEGATIVE) 05/31/17 12:35 Urine Ketones NEGATIVE mg/dL (NEGATIVE) 05/31/17 12:35 Urine Blood MODERATE (NEGATIVE) H 05/31/17 12:35 Urine Nitrate NEGATIVE (NEGATIVE) 05/31/17 12:35 Urine Bilirubin NEGATIVE (NEGATIVE) 05/31/17 12:35 Urine Urobilinogen 0.2 E.U./dL (0.2 - 1.0) 05/31/17 12:35 Ur Leukocyte Esterase NEGATIVE (NEGATIVE) 05/31/17 12:35 Urine RBC >100 /hpf (0-5) H 05/31/17 12:35 Urine WBC 2-5 /hpf (0-5) H 05/31/17 12:35 Ur Epithelial Cells NONE SEEN /lpf (FEW) 05/31/17 12:35 Urine Bacteria NONE SEEN /hpf (NONE SEEN) 05/31/17 12:35 Stool Occult Blood NEGATIVE (NEGATIVE) 06/05/17 06:00 Gentamicin Peak 13.8 ug/ml (4.0-8.0) H 06/11/17 11:05 Gentamicin Trough 0.8 ug/ml (0.2-2.0) 06/11/17 08:00 Vancomycin Trough 10.7 ug/mL (10-20) 06/04/17 09:00 Hepatitis A IgM Ab Negative (Negative) 06/10/17 06:20 Hep Bs Antigen Negative (Negative) 06/10/17 06:20 Hep B Core IgM Ab Negative (Negative) 06/10/17 06:20 Hepatitis C Antibody 6.9 s/co ratio (0.0-0.9) H 06/10/17 06:20 Influenza A (Rapid) NEG FOR INF A 06/05/17 08:00 Influenza B (Rapid) NEG FOR INF B 06/05/17 08:00 Blood Type O POSITIVE 06/02/17 11:40 Antibody Screen NEGATIVE 06/02/17 11:40 Crossmatch See Detail 06/02/17 11:40 - Physical Exam Vitals and I&O: Vital Signs Temp 97.8 F 06/15/17 04:00 Pulse 119 06/15/17 07:07 Resp 18 06/15/17 07:00 BP 96/57 01/19/18 07:00 Pulse Ox 98 06/15/17 07:07 Intake & Output 06/14/17 06/15/17 06/15/17 18:59 06:59 18:59 Intake Total 599.317 4459.667 Output Total 610 450 Balance -193.333 644.667 Weight (lbs) 58.202 kg 58.468 kg Intake: Intake, IV Amount 416.667 874.667 D5-0.45NS 1,000 ml @ 50 416.667 mls/hr IV .Q20H [facility] Rx#: [id number] D5-0.45NS 1,000 ml @ 80 874.667 mls/hr IV .[id number] [facility] Rx #:[id number] Oral 0 0 Tube Feeding 220 Output: Urine 600 450 Stool 10 0 Other: Stool Characteristics Liquid Liquid [place] Active Medications: Current Medications Acetaminophen (Tylenol 650mg Supp) 650 mg RC Q4HR PRN PRN Reason: FEVER >100.1 Stop: 07/30/17 13:39 Acetaminophen (Tylenol) 325 mg PO Q6H PRN PRN Reason: PAIN/FEVER Stop: 07/30/17 16:47 Last Admin: 06/15/17 08:05 Dose: 325 mg Acetylcysteine (Mucomyst 10%) 6 ml HHN Q4HRT [facility] Stop: 08/08/17 14:59 Last Admin: 06/15/17 07:06 Dose: 6 ml Albuterol Sulfate (Albuterol 2.5mg/3ml Neb Ud) 1.25 mg HHN Q4HRT [facility] Stop: 08/06/17 18:59 Last Admin: 06/15/17 07:06 Dose: 1.25 mg Ascorbic Acid (Vitamin C) 500 mg GT DAILY [facility] Stop: 07/31/17 08:59 Last Admin: 06/14/17 10:10 Dose: Not Given Bisacodyl (Dulcolax 10 Mg Supp) 10 mg RC Q72HR PRN PRN Reason: Constipation Stop: 07/30/17 13:39 [place] Balsam/Trypsin (Venelex) 1 appl TP BID [facility] Stop: 07/31/17 16:59 Last Admin: 06/14/17 16:10 Dose: Not Given Chlorhexidine Gluconate (Peridex) 15 ml MM 0800,2000 [facility] Stop: 08/13/17 19:59 Last Admin: 06/14/17 20:30 Dose: 15 ml Cholecalciferol (Vitamin D3) 500 iu PO DAILY [facility] Stop: 07/31/17 08:59 Last Admin: 06/14/17 10:10 Dose: Not Given Diltiazem HCl (Cardizem) 5 mg IVP Q4H PRN PRN Reason: IF HR >120 Stop: 08/10/17 00:44 Last Admin: 06/15/17 05:41 Dose: 5 mg Famotidine (Pepcid) 20 mg IVP Q12H [facility] Stop: 07/31/17 12:44 Last Admin: 06/15/17 00:55 Dose: 20 mg Guaifenesin (Robitussin) 200 mg PO Q4HR PRN PRN Reason: Cough or Congestion Stop: 07/30/17 13:41 Last Admin: 06/10/17 20:59 Dose: 200 mg Heparin Sodium (Porcine) (Heparin) 5,000 units SUBQ Q12H [facility] Stop: 07/31/17 20:59 Last Admin: 06/14/17 20:48 Dose: 5,000 units Norepinephrine Bitartrate 4 mg (/ Dextrose) 254 mls @ 30.48 mls/hr IV TITR PRN ; Protocol; 8 MCG/MIN PRN Reason: BP MAINTENANCE (PER PROTOCOL) Stop: 07/31/17 16:46 Last Titration: 06/03/17 00:00 Dose: 0 mcg/min, 0 mls/hr Sodium Chloride (Nacl 0.9%) 500 mls @ 999 mls/hr IV .Q31M ONE Stop: 06/15/17 09:08 Dextrose/Sodium Chloride (D5-0.45ns) 1,000 mls @ 100 mls/hr IV .Q10H [facility] Stop: 08/14/17 08:38 Ipratropium [place] (Atrovent Neb 0.5mg/2.5ml) 0.5 mg HHN Q4HRT [facility] Stop: 08/06/17 18:59 Last Admin: 06/15/17 07:06 Dose: 0.5 mg Lactulose (Cephulac) 30 gm PO BID [facility] Stop: 08/03/17 16:59 Last Admin: 06/14/17 16:11 Dose: Not Given Methylprednisolone Sodium Succinate (Solu-Medrol) 40 mg IVP Q8HR [facility] Stop: 07/30/17 20:59 Last Admin: 06/15/17 05:36 Dose: 40 mg Midodrine (Proamatine) 5 mg PO TID [facility] Stop: 08/10/17 20:59 Last Admin: 06/14/17 20:49 Dose: 5 mg Miscellaneous (Vte Chemical Prophylaxis Screen/ Admission) 1 ea PRN PRN PRN Reason: PROTOCOL Stop: 07/31/17 14:00 Miscellaneous (Probiotic Screen) 1 ea PRN PRN PRN Reason: PROTOCOL Stop: 07/31/17 16:02 Morphine Sulfate (Morphine) 2 mg IVP Q4HR PRN PRN Reason: Pain (Moderate) Stop: 08/13/17 10:37 Last Admin: 06/15/17 05:35 Dose: 2 mg Multivitamins/Vitamin C (Theragran) 1 tab GT DAILY [facility] Stop: 07/31/17 08:59 Last Admin: 06/14/17 10:10 Dose: Not Given Ondansetron HCl (Zofran) 4 mg IV Q8H PRN PRN Reason: Nausea / Vomiting Stop: 07/30/17 13:41 Sodium Phosphate (Fleet Enema) 133 ml RC DAILY PRN PRN Reason: Constipation Stop: 07/30/17 13:39 - Procedures Procedures: Procedures Procedure Code Date INSERT EMERGENCY AIRWAY 88949 05/31/17 INSERTION OF ENDOTRACHEAL AIRWAY INTO [place], VIA OPENING [id number] 05/31/17 RESPIRATORY VENTILATION, GREATER THAN 96 CONSECUTIVE HOURS [id number] 05/31/17 VENT MGMT INPAT INIT DAY 48656 05/31/17 Assessment/Plan - Problem List Patient Problems: All Active Problems COUGH AND CONGESTION (Acute) Nutritional Asmnt/Malnutr-PDOC - Dietary Evaluation Malnutrition Findings (Please click <Entered> for more info): Nutritional Asmnt/Malnutrition Start: 06/01/17 17: 31 Text: Status: Complete Freq: Document 06/01/17 17:31 SHELBIE (Rec: 06/01/17 17:45 SHELBIE [id number]) Nutritional Asmnt/Malnutrition Patient General Information Nutritional Screening High Risk Consult Diagnosis renal failure, prespiratory failure r/o PNA Pertinent Medical Hx/Surgical Hx dementia, MR anemia, spastic quadriplegia, cerebral palsy, seizure, aspiration PNA, s/p respiratory failure, spsis, hyponatremia, gastroenteritis, PEG Subjective Information Consult received for [place] 13 and pressure ulcer. Pt seen resting in bed at the time of visit, intubated, non-verbal noted. TF not running at this time. Current Diet Order/ Nutrition Support Isosource 1.5 87ml/hr x 17hr Pertinent Medications vitamin C, vitamin D3, D5w, teragran, piperacillin, miralax, cancomycin Pertinent Labs 06/01 na 160, Cl 120, K 4.1, BUN 29, Cr 0.3, Glucose 242, A1c 5.1, Ca 8.4, Mg 2.8 Nutritional Hx/Data Height 1.68 m Height (Calculated Centimeters) 167.6 Current Weight (lbs) 47.854 kg Weight (Calculated Kilograms) 47.9 Weight (Calculated Grams) 48272.0 [place] Body Weight 142 % [place] Body Weight 94 Body Mass Index (BMI) 17.0 Weight Status Underweight GI Symptoms GI Symptoms None Last BM none Difficult in: None Usual diet at home Jevity 1.5 87ml/hr x 17hr Skin Integrity/Comment: decubitus ulceration to sacrum Estimated Nutritional Goals Calories/Kcals/Kg 25-30 Kcals Calculated [id number] based on IBW 65kg Protein g/k.2-1.4 Protein Calculated 78-91 consider respiratory failure and skin probelm Nutritional Problem 1. Problem Problem excessive intake from enteral feeding Etiology current TF regimen providing excessive calorie and protein than estimated nutritional needs Signs/Symptoms: current TF providing 114% of calorie needs and 110% of protein needs Malnutrition Alert Protein-Calorie Malnutrition N/A Is there a minimum of two criteria No selected? Query Text:Check all the applicable criteria. A minimum of two criteria are recommended for diagnosis of either severe or non-severe malnutrition. Intervention/Recommendation Comments 1. Recommend modify TF rate to 70ml/hr x 17hr to meet 100% of nutritional needs and avoid overfeeding. 2. Monitor TF rate, tolerance, wt weekly, skin integrity and labs 3. F/U as moderate risk in 3-5 days, 04/25-04/27 Expected Outcomes/Goals Expected Outcomes/Goals 1. Pt to meet 75-100% of nutritional needs via nutrition support with tolerance 2. 2. Wt stability, skin to remain intact, labs to approach WNL.
[2017-06-15] MEDS: Lactulose 10 Gm/15 mL 30mL UDC PO SCH ×2 (09:31→17:16)
[2017-06-15] MEDS: Multivitamin Tab GT SCH (09:32)
[2017-06-15] MEDS: Venelex 60gm Tube TP SCH ×2 (12:23→18:35)
--- NOTE | 2017-06-15 13:52 | Internal Medicine Prog Note ---
Internal Medicine Subjective - Subjective Service Date: 06/15/17 Patient is:: awake, non-verbal, non-interactive, in bed Patient Complaints of:: congestion Per staff patient has:: no adverse event, tolerating meds Internal Medicine Objective - Results Result Diagrams: 06/15/17 06:00 06/15/17 06:00 Recent Labs: Laboratory Last Values WBC 11.2 Th/cmm (4.8-10.8) H 06/15/17 06:00 RBC 3.43 Mil/cmm (4.30-5.70) L 06/15/17 06:00 Hgb 10.6 gm/dL (12-16) L 06/15/17 06:00 Hct 31.3 % (41.0-60) L 06/15/17 06:00 MCV 91.2 fl (80-99) 06/15/17 06:00 MCH 30.8 pg (26.0-30.0) H 06/15/17 06:00 MCHC Differential 33.8 pg (28.0-36.0) 06/15/17 06:00 RDW 16.9 % (11.5-20.0) 06/15/17 06:00 Plt Count 176 Th/cmm (150-400) 06/15/17 06:00 MPV 7.5 fl 06/15/17 06:00 Neutrophils % 89.7 % (40.0-80.0) H 06/05/17 05:48 Band Neutrophils % 3 % (0-10) 06/14/17 06:20 Lymphocytes % 6.6 % (20.0-50.0) L 06/05/17 05:48 Monocytes % 3.6 % (2.0-10.0) 06/05/17 05:48 Eosinophils % 0.1 % (0.0-5.0) 06/05/17 05:48 Basophils % 0.0 % (0.0-2.0) 06/05/17 05:48 Neutrophils (Manual) 93 % (40-80) H 06/14/17 06:20 Lymphocytes 3 % (20-50) L 06/14/17 06:20 Monocytes 1 % (2-10) L 06/14/17 06:20 Platelet Estimate ADEQUATE (NORMAL) 06/14/17 06:20 PT 11.3 SECONDS (9.5-11.5) 06/11/17 06:10 INR 1.09 (0.5-1.4) 06/11/17 06:10 PTT (Actin FS) 23.1 SECONDS (26.0-38.0) L 06/11/17 06:10 Specimen Source Arterial 06/14/17 12:10 Sample Site Right Radial 06/14/17 12:10 pH 7.47 (7.35-7.45) H 06/14/17 12:10 pCO2 43.0 mmHg (35.0-45.0) 06/14/17 12:10 pO2 228.0 mmHg (80.0-100.0) H 06/14/17 12:10 HCO3 30.3 mEq/L (20.0-26.0) H 06/14/17 12:10 Base Excess 6.8 mEq/L (-3.0-3.0) H 06/14/17 12:10 O2 Saturation 100.0 % (92.0-100.0) 06/14/17 12:10 Endy Test YES 06/14/17 12:10 Vent Rate 12 06/14/17 12:10 Inspired O2 100 06/14/17 12:10 Tidal Volume 500 06/14/17 12:10 PEEP 5 06/14/17 12:10 Pressure (ins/psv/peep) NA 06/14/17 12:10 Critical Value E.BABCOCK 06/14/17 12:10 Sodium 130 mEq/L (136-145) L 06/15/17 06:00 Potassium 4.4 mEq/L (3.5-5.1) 06/15/17 06:00 Chloride 99 mEq/L (98-107) 06/15/17 06:00 Carbon Dioxide 26.6 mEq/L (21.0-31.0) 06/15/17 06:00 Anion Gap 8.8 (7.0-16.0) 06/15/17 06:00 BUN 25 mg/dL (7-25) 06/15/17 06:00 Creatinine 0.2 mg/dL (0.7-1.3) L 06/15/17 06:00 Est GFR ( Amer) > 60.0 ml/min (>90) 06/15/17 06:00 Est GFR (Non-Af Amer) > 60.0 ml/min 06/15/17 06:00 BUN/Creatinine Ratio 125.0 06/15/17 06:00 Glucose 160 mg/dL (70-105) H 06/15/17 06:00 POC Glucose 124 MG/DL (70 - 105) H 06/14/17 05:50 Hemoglobin A1c % 5.1 % (4.0-6.0) 06/01/17 05:30 Whole Bld Lactic Acid 3.45 mmol/L (0.60-1.99) H* 06/03/17 06:45 Calcium 7.7 mg/dL (8.6-10.3) L 06/15/17 06:00 Magnesium 2.1 mg/dL (1.9-2.7) 06/07/17 06:30 Total Bilirubin 0.8 mg/dL (0.3-1.0) 06/15/17 06:00 AST 45 U/L (13-39) H 06/15/17 06:00 ALT 98 U/L (7-52) H 06/15/17 06:00 Alkaline Phosphatase 61 U/L (34-104) 06/15/17 06:00 Ammonia 64 umol/L (16-53) H 06/04/17 06:45 B-Natriuretic Peptide 129.0 pg/mL (5.0-100.0) H 06/04/17 06:45 Total Protein 4.3 gm/dL (6.0-8.3) L 06/15/17 06:00 Albumin 2.1 gm/dL (4.2-5.5) L 06/15/17 06:00 Globulin 2.2 gm/dL 06/15/17 06:00 Albumin/Globulin Ratio 1.0 (1.0-1.8) 06/15/17 06:00 TSH 0.72 uIU/ml (0.34-5.60) 06/01/17 05:30 Urine Source CATH 05/31/17 12:35 Urine Color YELLOW 05/31/17 12:35 Urine Clarity CLOUDY (CLEAR) 05/31/17 12:35 Urine pH 8.5 (4.6 - 8.0) 05/31/17 12:35 Ur Specific [place] 1.010 (1.005-1.030) 05/31/17 12:35 Urine Protein 30 mg/dL (NEGATIVE) H 05/31/17 12:35 Urine Glucose (UA) NEGATIVE mg/dL (NEGATIVE) 05/31/17 12:35 Urine Ketones NEGATIVE mg/dL (NEGATIVE) 05/31/17 12:35 Urine Blood MODERATE (NEGATIVE) H 05/31/17 12:35 Urine Nitrate NEGATIVE (NEGATIVE) 05/31/17 12:35 Urine Bilirubin NEGATIVE (NEGATIVE) 05/31/17 12:35 Urine Urobilinogen 0.2 E.U./dL (0.2 - 1.0) 05/31/17 12:35 Ur Leukocyte Esterase NEGATIVE (NEGATIVE) 05/31/17 12:35 Urine RBC >100 /hpf (0-5) H 05/31/17 12:35 Urine WBC 2-5 /hpf (0-5) H 05/31/17 12:35 Ur Epithelial Cells NONE SEEN /lpf (FEW) 05/31/17 12:35 Urine Bacteria NONE SEEN /hpf (NONE SEEN) 05/31/17 12:35 Stool Occult Blood NEGATIVE (NEGATIVE) 06/05/17 06:00 Gentamicin Peak 13.8 ug/ml (4.0-8.0) H 06/11/17 11:05 Gentamicin Trough 0.8 ug/ml (0.2-2.0) 06/11/17 08:00 Vancomycin Trough 10.7 ug/mL (10-20) 06/04/17 09:00 Hepatitis A IgM Ab Negative (Negative) 06/10/17 06:20 Hep Bs Antigen Negative (Negative) 06/10/17 06:20 Hep B Core IgM Ab Negative (Negative) 06/10/17 06:20 Hepatitis C Antibody 6.9 s/co ratio (0.0-0.9) H 06/10/17 06:20 Influenza A (Rapid) NEG FOR INF A 06/05/17 08:00 Influenza B (Rapid) NEG FOR INF B 06/05/17 08:00 Blood Type O POSITIVE 06/02/17 11:40 Antibody Screen NEGATIVE 06/02/17 11:40 Crossmatch See Detail 06/02/17 11:40 - Physical Exam Vitals and I&O: Vital Signs Temp 97.6 F 06/15/17 12:00 Pulse 92 06/15/17 12:00 Resp 17 06/15/17 12:00 BP 97/53 06/15/17 12:00 Pulse Ox 96 06/15/17 12:00 Intake & Output 06/14/17 06/15/17 06/15/17 18:59 06:59 18:59 Intake Total 024.394 1285.667 Output Total 610 450 Balance -193.333 644.667 Weight (lbs) 128 lb 5 oz 128 lb 14.4 oz Intake: Intake, IV Amount 416.667 874.667 D5-0.45NS 1,000 ml @ 50 416.667 mls/hr IV .Q20H [facility] Rx#: [id number] D5-0.45NS 1,000 ml @ 80 874.667 mls/hr IV .[id number] [facility] Rx #:[id number] Oral 0 0 Tube Feeding 220 Output: Urine 600 450 Stool 10 0 Other: Stool Characteristics Liquid Liquid Liquid Brown Brown Brown Active Medications: Current Medications Acetaminophen (Tylenol 650mg Supp) 650 mg RC Q4HR PRN PRN Reason: FEVER >100.1 Stop: 07/30/17 13:39 Acetaminophen (Tylenol) 325 mg PO Q6H PRN PRN Reason: PAIN/FEVER Stop: 07/30/17 16:47 Last Admin: 06/15/17 08:05 Dose: 325 mg Acetylcysteine (Mucomyst 10%) 6 ml HHN Q4HRT [facility] Stop: 08/08/17 14:59 Last Admin: 06/15/17 11:00 Dose: 6 ml Albuterol Sulfate (Albuterol 2.5mg/3ml Neb Ud) 1.25 mg HHN Q4HRT [facility] Stop: 08/06/17 18:59 Last Admin: 06/15/17 10:59 Dose: 1.25 mg Ascorbic Acid (Vitamin C) 500 mg GT DAILY [facility] Stop: 07/31/17 08:59 Last Admin: 06/15/17 09:31 Dose: 500 mg Bisacodyl (Dulcolax 10 Mg Supp) 10 mg RC Q72HR PRN PRN Reason: Constipation Stop: 07/30/17 13:39 [place] Oil/[place]is[place] Balsam/Trypsin (Venelex) 1 appl TP BID [facility] Stop: 07/31/17 16:59 Last Admin: 06/15/17 12:23 Dose: 1 appl Chlorhexidine Gluconate (Peridex) 15 ml MM 0800,1999 [facility] Stop: 08/13/17 19:59 Last Admin: 06/15/17 08:00 Dose: 15 ml Cholecalciferol (Vitamin D3) 500 iu PO DAILY [facility] Stop: 07/31/17 08:59 Last Admin: 06/15/17 09:31 Dose: 500 iu Diltiazem HCl (Cardizem) 5 mg IVP Q4H PRN PRN Reason: IF HR >120 Stop: 08/10/17 00:44 Last Admin: 06/15/17 05:41 Dose: 5 mg Famotidine (Pepcid) 20 mg IVP Q12H [facility] Stop: 07/31/17 12:44 Last Admin: 06/15/17 12:11 Dose: 20 mg Guaifenesin (Robitussin) 200 mg PO Q4HR PRN PRN Reason: Cough or Congestion Stop: 07/30/17 13:41 Last Admin: 06/10/17 20:59 Dose: 200 mg Heparin Sodium (Porcine) (Heparin) 5,000 units SUBQ Q12H [facility] Stop: 07/31/17 20:59 Last Admin: 06/15/17 09:31 Dose: 5,000 units Norepinephrine Bitartrate 4 mg (/ Dextrose) 254 mls @ 30.48 mls/hr IV TITR PRN ; Protocol; 8 MCG/MIN PRN Reason: BP MAINTENANCE (PER PROTOCOL) Stop: 07/31/17 16:46 Last Titration: 06/03/17 00:00 Dose: 0 mcg/min, 0 mls/hr Dextrose/Sodium Chloride (D5-0.45ns) 1,000 mls @ 100 mls/hr IV .Q10H [facility] Stop: 08/14/17 08:38 Last Admin: 06/15/17 09:48 Dose: 100 mls/hr Ipratropium [place] (Atrovent Neb 0.5mg/2.5ml) 0.5 mg HHN Q4HRT [facility] Stop: 08/06/17 18:59 Last Admin: 06/15/17 11:00 Dose: 0.5 mg Lactulose (Cephulac) 30 gm PO BID [facility] Stop: 08/03/17 16:59 Last Admin: 06/15/17 09:31 Dose: 30 gm Methylprednisolone Sodium Succinate (Solu-Medrol) 40 mg IVP Q8HR [facility] Stop: 07/30/17 20:59 Last Admin: 06/15/17 12:10 Dose: 40 mg Midodrine (Proamatine) 5 mg PO TID [facility] Stop: 08/10/17 20:59 Last Admin: 06/15/17 09:00 Dose: 5 mg Miscellaneous (Vte Chemical Prophylaxis Screen/ Admission) 1 ea PRN PRN PRN Reason: PROTOCOL Stop: 07/31/17 14:00 Miscellaneous (Probiotic Screen) 1 ea PRN PRN PRN Reason: PROTOCOL Stop: 07/31/17 16:02 Morphine Sulfate (Morphine) 2 mg IVP Q4HR PRN PRN Reason: Pain (Moderate) Stop: 08/13/17 10:37 Last Admin: 06/15/17 12:29 Dose: 2 mg Multivitamins/Vitamin C (Theragran) 1 tab GT DAILY [facility] Stop: 07/31/17 08:59 Last Admin: 06/15/17 09:32 Dose: 1 tab Ondansetron HCl (Zofran) 4 mg IV Q8H PRN PRN Reason: Nausea / Vomiting Stop: 07/30/17 13:41 Sodium Phosphate (Fleet Enema) 133 ml RC DAILY PRN PRN Reason: Constipation Stop: 07/30/17 13:39 General: weak, congested HEENT: NC/AT, PERRLA Neck: No LAD, deformity Lungs: congested, rales, ronchi Cardiovascular: RRR, Normal S1, Normal S2, without murmur Abdomen: soft, non-tender, non-distended, +GT, positive bowel sound Extremities: excoriation, ecchymosis, contracture, deformity, atrophy Neurological: unable to follow command - Procedures Procedures: Procedures Procedure Code Date INSERT EMERGENCY AIRWAY 90606 05/31/17 INSERTION OF ENDOTRACHEAL AIRWAY INTO [place], VIA OPENING [id number] 05/31/17 RESPIRATORY VENTILATION, GREATER THAN 96 CONSECUTIVE HOURS [id number] 05/31/17 VENT MGMT INPAT INIT DAY 79791 05/31/17 Internal Medicine Assmt/Plan - Assessment Assessment: S/p cardiopulmonary arrest Multilobar PNA lactic acidosis Acute Respiratory Failure Sepsis PNA leukocytosis hypokalemia acute renal insufficiency spastic quadriplegia seizures s/p colostomy s/p wound debridement - Plan Plan: suction patient has needed vent support aspiration precautions inhalation treatments empiric ivantibiotics pulmo follow up continue current plan of care Nutritional Asmnt/Malnutr-PDOC - Dietary Evaluation Malnutrition Findings (Please click <Entered> for more info): Nutritional Asmnt/Malnutrition Start: 06/01/17 17: 31 Text: Status: Complete Freq: Document 06/01/17 17:31 SHELBIE (Rec: 06/01/17 17:45 [facility] Nutritional Asmnt/Malnutrition Patient General Information Nutritional Screening High Risk Consult Diagnosis renal failure, prespiratory failure r/o PNA Pertinent Medical Hx/Surgical Hx dementia, MR anemia, spastic quadriplegia, cerebral palsy, seizure, aspiration PNA, s/p respiratory failure, spsis, hyponatremia, gastroenteritis, PEG Subjective Information Consult received for Anibal 13 and pressure ulcer. Pt seen resting in bed at the time of visit, intubated, non-verbal noted. TF not running at this time. Current Diet Order/ Nutrition Support Isosource 1.5 87ml/hr x 17hr Pertinent Medications vitamin C, vitamin D3, D5w, teragran, piperacillin, miralax, cancomycin Pertinent Labs / na 160, Cl 120, K 4.1, BUN 29, Cr 0.3, Glucose 242, A1c 5.1, Ca 8.4, Mg 2.8 Nutritional Hx/Data Height 5 ft 6 in Height (Calculated Centimeters) 167.6 Current Weight (lbs) 105 lb 8 oz Weight (Calculated Kilograms) 47.9 Weight (Calculated Grams) 78265.0 [place] Body Weight 142 % [place] Body Weight 94 Body Mass Index (BMI) 17.0 Weight Status Underweight GI Symptoms GI Symptoms None Last BM none Difficult in: None Usual diet at home Jevity 1.5 87ml/hr x 17hr Skin Integrity/Comment: decubitus ulceration to sacrum Estimated Nutritional Goals Calories/Kcals/Kg 25-30 Kcals Calculated [id number] based on IBW 65kg Protein g/k.2-1.4 Protein Calculated 78-91 consider respiratory failure and skin probelm Nutritional Problem 1. Problem Problem excessive intake from enteral feeding Etiology current TF regimen providing excessive calorie and protein than estimated nutritional needs Signs/Symptoms: current TF providing 114% of calorie needs and 110% of protein needs Malnutrition Alert Protein-Calorie Malnutrition N/A Is there a minimum of two criteria No selected? Query Text:Check all the applicable criteria. A minimum of two criteria are recommended for diagnosis of either severe or non-severe malnutrition. Intervention/Recommendation Comments 1. Recommend modify TF rate to 70ml/hr x 17hr to meet 100% of nutritional needs and avoid overfeeding. 2. Monitor TF rate, tolerance, wt weekly, skin integrity and labs 3. F/U as moderate risk in 3-5 days, 04/25-04/27 Expected Outcomes/Goals Expected Outcomes/Goals 1. Pt to meet 75-100% of nutritional needs via nutrition support with tolerance 2. 2. Wt stability, skin to remain intact, labs to approach WNL.
--- NOTE | 2017-06-15 14:37 | Pathology Report ---
[id number] Collection Date: 06/14/2017 Surgeon: Dr. Christian Ng Specimen Description: Debrided tissue, sacral decubitus ulcer. Gross Description: Received in formalin is a 1.8 x 1.0 x 0.5 cm portion of irregular, carranza-brown soft tissue. Sectioned and totally submitted in one cassette. Microscopic Description: The histologic sections show degenerated fibroconnective tissue with areas of necrosis and suppurative inflammation, consisting of mostly neutrophils within a necrotic background. Diagnosis: Ulcerated, necrotic tissue consistent with debridement, sacral decubitus ulcer. JOB# [id number]
[2017-06-16] MEDS: Ipratropium Neb 0.5 mg/2.5 mL UD HHN SCH ×6 (03:16→23:24)
[2017-06-16] MEDS: Albuterol Nebulizer 2.5mg/3mL HHN SCH ×6 (03:16→23:24)
[2017-06-16] MEDS: Acetylcysteine 10% 10 ML VIAL HHN SCH ×6 (03:17→23:24)
[2017-06-16] MEDS: Morphine Sulfate 2 mg/mL 1mL Syr IVP PRN ×2 (04:15→12:41)
[2017-06-16] MEDS: Diltiazem 5 mg/mL 5mL Vial IVP PRN (04:23)
[2017-06-16 04:49] LABS: HEMOGLOBIN 8.4 gm/dL (12-16); LYMPHOCYTE ABSOLUTE 0.1 Th/cmm (1.5-3.0); MEAN CELL VOLUME 91.3 fl (80-99); MEAN CORPUSCULAR HEMOGLOBIN 30.2 pg (26.0-30.0); MEAN CORPUSCULAR HGB CONC 33.1 pg (28.0-36.0); MEAN PLATELET VOLUME 7.2 fl; MONOCYTE ABSOLUTE 0.1 Th/cmm (0.3-1.0); NEUTROPHILE ABSOLUTE 4.7 Th/cmm (1.8-8.0); RED BLOOD COUNT 2.77 Mil/cmm (4.30-5.70); RED CELL DISTRIBUTION WIDTH 16.2 % (11.5-20.0)
[2017-06-16 04:58] LABS: HEMATOCRIT 25.3 % (41.0-60); PLATELET COUNT 129 Th/cmm (150-400); WHITE BLOOD COUNT 4.9 Th/cmm (4.8-10.8)
[2017-06-16 05:09] LABS: ANION GAP 8.6 (7.0-16.0); BUN - UREA NITROGEN 18 mg/dL (7-25); CALCIUM SERUM 7.5 mg/dL (8.6-10.3); CARBON DIOXIDE 25.5 mEq/L (21.0-31.0); CHLORIDE 105 mEq/L (98-107); GLUCOSE 245 mg/dL (70-105); POTASSIUM SERUM 3.1 mEq/L (3.5-5.1); SODIUM SERUM 136 mEq/L (136-145)
[2017-06-16 05:15] LABS: GFR AFRICAN-AMERICAN > 60.0 ml/min (>90); GFR NON AFRICAN-AMERICAN > 60.0 ml/min
[2017-06-16 05:16] LABS: CREATININE - SERUM 0.2 mg/dL (0.7-1.3)
[2017-06-16] MEDS: methylPREDNISolone SS 40 mg Vial IVP SCH ×3 (05:16→20:38)
[2017-06-16] MEDS: D5-0.45NS 1,000 ML IV SCH ×3 (05:18→17:56)
[2017-06-16 05:55] LABS: BAND NEUTROPHILE 3 % (0-10); EOSINOPHIL 1 % (0-5); LYMPHOCYTE 3 % (20-50); MONOCYTE 1 % (2-10); NEUTROPHILS 92 % (40-80); TOTAL CELLS COUNTED 100
[2017-06-16 05:56] LABS: ANISOCYTOSIS 1+; PLATELET ESTIMATE DECREASED PLATELETS (NORMAL)
--- NOTE | 2017-06-16 08:32 | Diagnostic Imaging Report ---
Exam: Portable chest x-ray HISTORY: Shortness of breath. Findings: Portable examination of the chest at 0750 hours reviewed, compared to prior study 06/15/2017 demonstrates unchanged position of endotracheal tube. Bilateral basilar infiltrates are noted. Small right pleural effusion, the right pleural effusion decreasing compared to prior exam. COPD changes are noted. Bony thorax intact. IMPRESSION: Bilateral basilar infiltrates, superimposed right pleural effusion, right pleural effusion has decreased when compared to prior study day earlier.
[2017-06-16] MEDS: Chlorhexidine Gluconate 0.12% 15mL Mouthwash MM SCH ×2 (08:39→20:37)
[2017-06-16] MEDS: Lactulose 10 Gm/15 mL 30mL UDC PO SCH ×2 (08:39→17:29)
[2017-06-16] MEDS: Venelex 60gm Tube TP SCH (09:00)
[2017-06-16 09:15] LABS: ALLEN TEST PASS; pH 7.52 (7.35-7.45)
[2017-06-16] MEDS: Multivitamin Tab GT SCH (10:00)
--- NOTE | 2017-06-16 10:14 | General Progress Note ---
Subjective - Review of Systems Service Date: 06/16/17 Events since last encounter: FI02 30% minimal colostomy output no wound vac Objective - Results Result Diagrams: 06/16/17 04:25 06/16/17 04:25 Recent Labs: Laboratory Last Values WBC 4.9 Th/cmm (4.8-10.8) D 06/16/17 04:25 RBC 2.77 Mil/cmm (4.30-5.70) L 06/16/17 04:25 Hgb 8.4 gm/dL (12-16) L 06/16/17 04:25 Hct 25.3 % (41.0-60) L D 06/16/17 04:25 MCV 91.3 fl (80-99) 06/16/17 04:25 MCH 30.2 pg (26.0-30.0) H 06/16/17 04:25 MCHC Differential 33.1 pg (28.0-36.0) 06/16/17 04:25 RDW 16.2 % (11.5-20.0) 06/16/17 04:25 Plt Count 129 Th/cmm (150-400) L D 06/16/17 04:25 MPV 7.2 fl 06/16/17 04:25 Neutrophils % 89.7 % (40.0-80.0) H 06/05/17 05:48 Band Neutrophils % 3 % (0-10) 06/16/17 04:25 Lymphocytes % 6.6 % (20.0-50.0) L 06/05/17 05:48 Monocytes % 3.6 % (2.0-10.0) 06/05/17 05:48 Eosinophils % 0.1 % (0.0-5.0) 06/05/17 05:48 Basophils % 0.0 % (0.0-2.0) 06/05/17 05:48 Neutrophils (Manual) 92 % (40-80) H 06/16/17 04:25 Lymphocytes 3 % (20-50) L 06/16/17 04:25 Monocytes 1 % (2-10) L 06/16/17 04:25 Eosinophils 1 % (0-5) 06/16/17 04:25 Platelet Estimate DECREASED PLATELETS (NORMAL) 06/16/17 04:25 Anisocytosis 1+ 06/16/17 04:25 PT 11.3 SECONDS (9.5-11.5) 06/11/17 06:10 INR 1.09 (0.5-1.4) 06/11/17 06:10 PTT (Actin FS) 23.1 SECONDS (26.0-38.0) L 06/11/17 06:10 Specimen Source Arterial 06/16/17 09:04 Sample Site Right Radial 06/16/17 09:04 pH 7.52 (7.35-7.45) H 06/16/17 09:04 pCO2 35.0 mmHg (35.0-45.0) 06/16/17 09:04 pO2 71.0 mmHg (80.0-100.0) L 06/16/17 09:04 HCO3 29.3 mEq/L (20.0-26.0) H 06/16/17 09:04 Base Excess 5.7 mEq/L (-3.0-3.0) H 06/16/17 09:04 O2 Saturation 96.0 % (92.0-100.0) 06/16/17 09:04 Endy Test PASS 06/16/17 09:04 Vent Rate 4 06/16/17 09:04 Inspired O2 30 06/16/17 09:04 Tidal Volume 500 06/16/17 09:04 PEEP 5 06/16/17 09:04 Pressure (ins/psv/peep) 10 06/16/17 09:04 Critical Value PW 06/16/17 09:04 Sodium 136 mEq/L (136-145) 06/16/17 04:25 Potassium 3.1 mEq/L (3.5-5.1) L 06/16/17 04:25 Chloride 105 mEq/L (98-107) 06/16/17 04:25 Carbon Dioxide 25.5 mEq/L (21.0-31.0) 06/16/17 04:25 Anion Gap 8.6 (7.0-16.0) 06/16/17 04:25 BUN 18 mg/dL (7-25) 06/16/17 04:25 Creatinine 0.2 mg/dL (0.7-1.3) L 06/16/17 04:25 Est GFR ( Amer) > 60.0 ml/min (>90) 06/16/17 04:25 Est GFR (Non-Af Amer) > 60.0 ml/min 06/16/17 04:25 BUN/Creatinine Ratio 90.0 06/16/17 04:25 Glucose 245 mg/dL (70-105) H 06/16/17 04:25 POC Glucose 124 MG/DL (70 - 105) H 06/14/17 05:50 Hemoglobin A1c % 5.1 % (4.0-6.0) 06/01/17 05:30 Whole Bld Lactic Acid 3.45 mmol/L (0.60-1.99) H* 06/03/17 06:45 Calcium 7.5 mg/dL (8.6-10.3) L 06/16/17 04:25 Magnesium 2.1 mg/dL (1.9-2.7) 06/07/17 06:30 Total Bilirubin 0.8 mg/dL (0.3-1.0) 06/15/17 06:00 AST 45 U/L (13-39) H 06/15/17 06:00 ALT 98 U/L (7-52) H 06/15/17 06:00 Alkaline Phosphatase 61 U/L (34-104) 06/15/17 06:00 Ammonia 64 umol/L (16-53) H 06/04/17 06:45 B-Natriuretic Peptide 129.0 pg/mL (5.0-100.0) H 06/04/17 06:45 Total Protein 4.3 gm/dL (6.0-8.3) L 06/15/17 06:00 Albumin 2.1 gm/dL (4.2-5.5) L 06/15/17 06:00 Globulin 2.2 gm/dL 06/15/17 06:00 Albumin/Globulin Ratio 1.0 (1.0-1.8) 06/15/17 06:00 TSH 0.72 uIU/ml (0.34-5.60) 06/01/17 05:30 Urine Source CATH 05/31/17 12:35 Urine Color YELLOW 05/31/17 12:35 Urine Clarity CLOUDY (CLEAR) 05/31/17 12:35 Urine pH 8.5 (4.6 - 8.0) 05/31/17 12:35 Ur Specific [place] 1.010 (1.005-1.030) 05/31/17 12:35 Urine Protein 30 mg/dL (NEGATIVE) H 05/31/17 12:35 Urine Glucose (UA) NEGATIVE mg/dL (NEGATIVE) 05/31/17 12:35 Urine Ketones NEGATIVE mg/dL (NEGATIVE) 05/31/17 12:35 Urine Blood MODERATE (NEGATIVE) H 05/31/17 12:35 Urine Nitrate NEGATIVE (NEGATIVE) 05/31/17 12:35 Urine Bilirubin NEGATIVE (NEGATIVE) 05/31/17 12:35 Urine Urobilinogen 0.2 E.U./dL (0.2 - 1.0) 05/31/17 12:35 Ur Leukocyte Esterase NEGATIVE (NEGATIVE) 05/31/17 12:35 Urine RBC >100 /hpf (0-5) H 05/31/17 12:35 Urine WBC 2-5 /hpf (0-5) H 05/31/17 12:35 Ur Epithelial Cells NONE SEEN /lpf (FEW) 05/31/17 12:35 Urine Bacteria NONE SEEN /hpf (NONE SEEN) 05/31/17 12:35 Stool Occult Blood NEGATIVE (NEGATIVE) 06/05/17 06:00 Gentamicin Peak 13.8 ug/ml (4.0-8.0) H 06/11/17 11:05 Gentamicin Trough 0.8 ug/ml (0.2-2.0) 06/11/17 08:00 Vancomycin Trough 10.7 ug/mL (10-20) 06/04/17 09:00 Hepatitis A IgM Ab Negative (Negative) 06/10/17 06:20 Hep Bs Antigen Negative (Negative) 06/10/17 06:20 Hep B Core IgM Ab Negative (Negative) 06/10/17 06:20 Hepatitis C Antibody 6.9 s/co ratio (0.0-0.9) H 06/10/17 06:20 Influenza A (Rapid) NEG FOR INF A 06/05/17 08:00 Influenza B (Rapid) NEG FOR INF B 06/05/17 08:00 Blood Type O POSITIVE 06/02/17 11:40 Antibody Screen NEGATIVE 06/02/17 11:40 Crossmatch See Detail 06/02/17 11:40 - Physical Exam Vitals and I&O: Vital Signs Temp 97 F 06/16/17 04:00 Pulse 112 06/16/17 09:00 Resp 17 06/16/17 06:00 BP 105/56 06/16/17 06:00 Pulse Ox 95 06/16/17 09:00 Intake & Output 06/15/17 06/16/17 06/16/17 18:59 06:59 18:59 Intake Total 740 2386.667 Output Total 1000 1180 Balance -260 1206.667 Weight (lbs) 58.468 kg 57.606 kg Intake: Intake, IV Amount 1836.667 D5-0.45NS 1,000 ml @ 100 1836.667 mls/hr IV .Q10H [facility] Rx#: [id number] Tube Feeding 540 550 Other 200 Output: Urine 1000 1175 Stool 5 Other: Stool Characteristics Liquid Liquid Liquid Brown Brown Brown Active Medications: Current Medications Acetaminophen (Tylenol 650mg Supp) 650 mg RC Q4HR PRN PRN Reason: FEVER >100.1 Stop: 07/30/17 13:39 Acetaminophen (Tylenol) 325 mg PO Q6H PRN PRN Reason: PAIN/FEVER Stop: 07/30/17 16:47 Last Admin: 06/15/17 08:05 Dose: 325 mg Acetylcysteine (Mucomyst 10%) 6 ml HHN Q4HRT [facility] Stop: 08/08/17 14:59 Last Admin: 06/16/17 07:02 Dose: 6 ml Albuterol Sulfate (Albuterol 2.5mg/3ml Neb Ud) 1.25 mg HHN Q4HRT [facility] Stop: 08/06/17 18:59 Last Admin: 06/16/17 07:02 Dose: 1.25 mg Ascorbic Acid (Vitamin C) 500 mg GT DAILY FERNANDO Stop: 07/31/17 08:59 Last Admin: 06/16/17 08:39 Dose: 500 mg Bisacodyl (Dulcolax 10 Mg Supp) 10 mg RC Q72HR PRN PRN Reason: Constipation Stop: 07/30/17 13:39 Jena Oil/Emirati Balsam/Trypsin (Venelex) 1 appl TP DAILY [facility] Stop: 08/15/17 08:59 Chlorhexidine Gluconate (Peridex) 15 ml MM 0800,2000 [facility] Stop: 08/13/17 19:59 Last Admin: 06/16/17 08:39 Dose: 15 ml Cholecalciferol (Vitamin D3) 500 iu PO DAILY [facility] Stop: 07/31/17 08:59 Last Admin: 06/16/17 08:39 Dose: 500 iu Diltiazem HCl (Cardizem) 5 mg IVP Q4H PRN PRN Reason: IF HR >120 Stop: 08/10/17 00:44 Last Admin: 06/16/17 04:23 Dose: 5 mg Famotidine (Pepcid) 20 mg IVP Q12H [facility] Stop: 07/31/17 12:44 Last Admin: 06/16/17 00:43 Dose: 20 mg Guaifenesin (Robitussin) 200 mg PO Q4HR PRN PRN Reason: Cough or Congestion Stop: 07/30/17 13:41 Last Admin: 06/10/17 20:59 Dose: 200 mg Heparin Sodium (Porcine) (Heparin) 5,000 units SUBQ Q12H [facility] Stop: 07/31/17 20:59 Last Admin: 06/15/17 20:57 Dose: 5,000 units Norepinephrine Bitartrate 4 mg (/ Dextrose) 254 mls @ 30.48 mls/hr IV TITR PRN ; Protocol; 8 MCG/MIN PRN Reason: BP MAINTENANCE (PER PROTOCOL) Stop: 07/31/17 16:46 Last Titration: 06/03/17 00:00 Dose: 0 mcg/min, 0 mls/hr Dextrose/Sodium Chloride (D5-0.45ns) 1,000 mls @ 100 mls/hr IV .Q10H [facility] Stop: 08/14/17 08:38 Last Admin: 06/16/17 05:18 Dose: 100 mls/hr Ipratropium [place] (Atrovent Neb 0.5mg/2.5ml) 0.5 mg HHN Q4HRT [facility] Stop: 08/06/17 18:59 Last Admin: 06/16/17 07:02 Dose: 0.5 mg Lactulose (Cephulac) 30 gm PO BID [facility] Stop: 08/03/17 16:59 Last Admin: 06/16/17 08:39 Dose: 30 gm Lorazepam (Ativan) 0.5 mg IVP Q8HR PRN; Protocol PRN Reason: Agitation Stop: 08/14/17 14:52 Last Admin: 06/16/17 00:52 Dose: 0.5 mg Methylprednisolone Sodium Succinate (Solu-Medrol) 40 mg IVP Q8HR [facility] Stop: 07/30/17 20:59 Last Admin: 06/16/17 05:16 Dose: 40 mg Midodrine (Proamatine) 5 mg PO TID [facility] Stop: 08/10/17 20:59 Midodrine (Proamatine) 5 mg PO NOW [facility] Stop: 06/16/17 11:00 Miscellaneous (Vte Chemical Prophylaxis Screen/ Admission) 1 ea PRN PRN PRN Reason: PROTOCOL Stop: 07/31/17 14:00 Miscellaneous (Probiotic Screen) 1 ea PRN PRN PRN Reason: PROTOCOL Stop: 07/31/17 16:02 Morphine Sulfate (Morphine) 2 mg IVP Q4HR PRN PRN Reason: Pain (Moderate) Stop: 08/13/17 10:37 Last Admin: 06/16/17 04:15 Dose: 2 mg Multivitamins/Vitamin C (Theragran) 1 tab GT DAILY FERNANDO Stop: 07/31/17 08:59 Last Admin: 06/15/17 09:32 Dose: 1 tab Ondansetron HCl (Zofran) 4 mg IV Q8H PRN PRN Reason: Nausea / Vomiting Stop: 07/30/17 13:41 Sodium Phosphate (Fleet Enema) 133 ml RC DAILY PRN PRN Reason: Constipation Stop: 07/30/17 13:39 - Procedures Procedures: Procedures Procedure Code Date INSERT EMERGENCY AIRWAY 06128 05/31/17 INSERTION OF ENDOTRACHEAL AIRWAY INTO TRACHEA, VIA OPENING [id number] 05/31/17 RESPIRATORY VENTILATION, GREATER THAN 96 CONSECUTIVE HOURS [id number] 05/31/17 VENT MGMT INPAT INIT DAY 35203 05/31/17 Assessment/Plan - Problem List Patient Problems: All Active Problems COUGH AND CONGESTION (Acute) Nutritional Asmnt/Malnutr-PDOC - Dietary Evaluation Malnutrition Findings (Please click <Entered> for more info): Nutritional Asmnt/Malnutrition Start: 06/01/17 17: 31 Text: Status: Complete Freq: Document 06/01/17 17:31 SHELBIE (Rec: 06/01/17 17:45 SHELBIE [id number]) Nutritional Asmnt/Malnutrition Patient General Information Nutritional Screening High Risk Consult Diagnosis renal failure, prespiratory failure r/o PNA Pertinent Medical Hx/Surgical Hx dementia, MR anemia, spastic quadriplegia, cerebral palsy, seizure, aspiration PNA, s/p respiratory failure, spsis, hyponatremia, gastroenteritis, PEG Subjective Information Consult received for Anibal 13 and pressure ulcer. Pt seen resting in bed at the time of visit, intubated, non-verbal noted. TF not running at this time. Current Diet Order/ Nutrition Support Isosource 1.5 87ml/hr x 17hr Pertinent Medications vitamin C, vitamin D3, D5w, teragran, piperacillin, miralax, cancomycin Pertinent Labs 06/01 na 160, Cl 120, K 4.1, BUN 29, Cr 0.3, Glucose 242, A1c 5.1, Ca 8.4, Mg 2.8 Nutritional Hx/Data Height 1.68 m Height (Calculated Centimeters) 167.6 Current Weight (lbs) 47.854 kg Weight (Calculated Kilograms) 47.9 Weight (Calculated Grams) 58456.0 [place] Body Weight 142 % [place] Body Weight 94 Body Mass Index (BMI) 17.0 Weight Status Underweight GI Symptoms GI Symptoms None Last BM none Difficult in: None Usual diet at home Jevity 1.5 87ml/hr x 17hr Skin Integrity/Comment: decubitus ulceration to sacrum Estimated Nutritional Goals Calories/Kcals/Kg 25-30 Kcals Calculated [id number] based on IBW 65kg Protein g/k.2-1.4 Protein Calculated 78-91 consider respiratory failure and skin probelm Nutritional Problem 1. Problem Problem excessive intake from enteral feeding Etiology current TF regimen providing excessive calorie and protein than estimated nutritional needs Signs/Symptoms: current TF providing 114% of calorie needs and 110% of protein needs Malnutrition Alert Protein-Calorie Malnutrition N/A Is there a minimum of two criteria No selected? Query Text:Check all the applicable criteria. A minimum of two criteria are recommended for diagnosis of either severe or non-severe malnutrition. Intervention/Recommendation Comments 1. Recommend modify TF rate to 70ml/hr x 17hr to meet 100% of nutritional needs and avoid overfeeding. 2. Monitor TF rate, tolerance, wt weekly, skin integrity and labs 3. F/U as moderate risk in 3-5 days, 04/25-04/27 Expected Outcomes/Goals Expected Outcomes/Goals 1. Pt to meet 75-100% of nutritional needs via nutrition support with tolerance 2. 2. Wt stability, skin to remain intact, labs to approach WNL.
[2017-06-16] MEDS ORDERED: Potassium Chloride Elixir 20 mEq /15 mL UDC GT ONE (13:21)
--- NOTE | 2017-06-16 15:53 | Internal Medicine Prog Note ---
Internal Medicine Subjective - Subjective Service Date: 06/16/17 (patient is now DNR) Patient seen and examined:: with staff Patient is:: awake, non-verbal, non-interactive, in bed Patient Complaints of:: congestion Per staff patient has:: no adverse event, tolerating meds Internal Medicine Objective - Results Result Diagrams: 06/16/17 04:25 06/16/17 04:25 Recent Labs: Laboratory Last Values WBC 4.9 Th/cmm (4.8-10.8) D 06/16/17 04:25 RBC 2.77 Mil/cmm (4.30-5.70) L 06/16/17 04:25 Hgb 8.4 gm/dL (12-16) L 06/16/17 04:25 Hct 25.3 % (41.0-60) L D 06/16/17 04:25 MCV 91.3 fl (80-99) 06/16/17 04:25 MCH 30.2 pg (26.0-30.0) H 06/16/17 04:25 MCHC Differential 33.1 pg (28.0-36.0) 06/16/17 04:25 RDW 16.2 % (11.5-20.0) 06/16/17 04:25 Plt Count 129 Th/cmm (150-400) L D 06/16/17 04:25 MPV 7.2 fl 06/16/17 04:25 Neutrophils % 89.7 % (40.0-80.0) H 06/05/17 05:48 Band Neutrophils % 3 % (0-10) 06/16/17 04:25 Lymphocytes % 6.6 % (20.0-50.0) L 06/05/17 05:48 Monocytes % 3.6 % (2.0-10.0) 06/05/17 05:48 Eosinophils % 0.1 % (0.0-5.0) 06/05/17 05:48 Basophils % 0.0 % (0.0-2.0) 06/05/17 05:48 Neutrophils (Manual) 92 % (40-80) H 06/16/17 04:25 Lymphocytes 3 % (20-50) L 06/16/17 04:25 Monocytes 1 % (2-10) L 06/16/17 04:25 Eosinophils 1 % (0-5) 06/16/17 04:25 Platelet Estimate DECREASED PLATELETS (NORMAL) 06/16/17 04:25 Anisocytosis 1+ 06/16/17 04:25 PT 11.3 SECONDS (9.5-11.5) 06/11/17 06:10 INR 1.09 (0.5-1.4) 06/11/17 06:10 PTT (Actin FS) 23.1 SECONDS (26.0-38.0) L 06/11/17 06:10 Specimen Source Arterial 06/16/17 09:04 Sample Site Right Radial 06/16/17 09:04 pH 7.52 (7.35-7.45) H 06/16/17 09:04 pCO2 35.0 mmHg (35.0-45.0) 06/16/17 09:04 pO2 71.0 mmHg (80.0-100.0) L 06/16/17 09:04 HCO3 29.3 mEq/L (20.0-26.0) H 06/16/17 09:04 Base Excess 5.7 mEq/L (-3.0-3.0) H 06/16/17 09:04 O2 Saturation 96.0 % (92.0-100.0) 06/16/17 09:04 Endy Test PASS 06/16/17 09:04 Vent Rate 4 06/16/17 09:04 Inspired O2 30 06/16/17 09:04 Tidal Volume 500 06/16/17 09:04 PEEP 5 06/16/17 09:04 Pressure (ins/psv/peep) 10 06/16/17 09:04 Critical Value PW 06/16/17 09:04 Sodium 136 mEq/L (136-145) 06/16/17 04:25 Potassium 3.1 mEq/L (3.5-5.1) L 06/16/17 04:25 Chloride 105 mEq/L (98-107) 06/16/17 04:25 Carbon Dioxide 25.5 mEq/L (21.0-31.0) 06/16/17 04:25 Anion Gap 8.6 (7.0-16.0) 06/16/17 04:25 BUN 18 mg/dL (7-25) 06/16/17 04:25 Creatinine 0.2 mg/dL (0.7-1.3) L 06/16/17 04:25 Est GFR ( Amer) > 60.0 ml/min (>90) 06/16/17 04:25 Est GFR (Non-Af Amer) > 60.0 ml/min 06/16/17 04:25 BUN/Creatinine Ratio 90.0 06/16/17 04:25 Glucose 245 mg/dL (70-105) H 06/16/17 04:25 POC Glucose 124 MG/DL (70 - 105) H 06/14/17 05:50 Hemoglobin A1c % 5.1 % (4.0-6.0) 06/01/17 05:30 Whole Bld Lactic Acid 3.45 mmol/L (0.60-1.99) H* 06/03/17 06:45 Calcium 7.5 mg/dL (8.6-10.3) L 06/16/17 04:25 Magnesium 2.1 mg/dL (1.9-2.7) 06/07/17 06:30 Total Bilirubin 0.8 mg/dL (0.3-1.0) 06/15/17 06:00 AST 45 U/L (13-39) H 06/15/17 06:00 ALT 98 U/L (7-52) H 06/15/17 06:00 Alkaline Phosphatase 61 U/L (34-104) 06/15/17 06:00 Ammonia 64 umol/L (16-53) H 06/04/17 06:45 B-Natriuretic Peptide 129.0 pg/mL (5.0-100.0) H 06/04/17 06:45 Total Protein 4.3 gm/dL (6.0-8.3) L 06/15/17 06:00 Albumin 2.1 gm/dL (4.2-5.5) L 06/15/17 06:00 Globulin 2.2 gm/dL 06/15/17 06:00 Albumin/Globulin Ratio 1.0 (1.0-1.8) 06/15/17 06:00 TSH 0.72 uIU/ml (0.34-5.60) 06/01/17 05:30 Urine Source CATH 05/31/17 12:35 Urine Color YELLOW 05/31/17 12:35 Urine Clarity CLOUDY (CLEAR) 05/31/17 12:35 Urine pH 8.5 (4.6 - 8.0) 05/31/17 12:35 Ur Specific [place] 1.010 (1.005-1.030) 05/31/17 12:35 Urine Protein 30 mg/dL (NEGATIVE) H 05/31/17 12:35 Urine Glucose (UA) NEGATIVE mg/dL (NEGATIVE) 05/31/17 12:35 Urine Ketones NEGATIVE mg/dL (NEGATIVE) 05/31/17 12:35 Urine Blood MODERATE (NEGATIVE) H 05/31/17 12:35 Urine Nitrate NEGATIVE (NEGATIVE) 05/31/17 12:35 Urine Bilirubin NEGATIVE (NEGATIVE) 05/31/17 12:35 Urine Urobilinogen 0.2 E.U./dL (0.2 - 1.0) 05/31/17 12:35 Ur Leukocyte Esterase NEGATIVE (NEGATIVE) 05/31/17 12:35 Urine RBC >100 /hpf (0-5) H 05/31/17 12:35 Urine WBC 2-5 /hpf (0-5) H 05/31/17 12:35 Ur Epithelial Cells NONE SEEN /lpf (FEW) 05/31/17 12:35 Urine Bacteria NONE SEEN /hpf (NONE SEEN) 05/31/17 12:35 Stool Occult Blood NEGATIVE (NEGATIVE) 06/05/17 06:00 Gentamicin Peak 13.8 ug/ml (4.0-8.0) H 06/11/17 11:05 Gentamicin Trough 0.8 ug/ml (0.2-2.0) 06/11/17 08:00 Vancomycin Trough 10.7 ug/mL (10-20) 06/04/17 09:00 Hepatitis A IgM Ab Negative (Negative) 06/10/17 06:20 Hep Bs Antigen Negative (Negative) 06/10/17 06:20 Hep B Core IgM Ab Negative (Negative) 06/10/17 06:20 Hepatitis C Antibody 6.9 s/co ratio (0.0-0.9) H 06/10/17 06:20 Influenza A (Rapid) NEG FOR INF A 06/05/17 08:00 Influenza B (Rapid) NEG FOR INF B 06/05/17 08:00 Blood Type O POSITIVE 06/02/17 11:40 Antibody Screen NEGATIVE 06/02/17 11:40 Crossmatch See Detail 06/02/17 11:40 - Physical Exam Vitals and I&O: Vital Signs Temp 98.7 F 06/16/17 12:00 Pulse 132 06/16/17 15:43 Resp 16 06/16/17 15:00 BP 116/78 06/16/17 15:00 Pulse Ox 98 06/16/17 15:43 Intake & Output 06/15/17 06/16/17 06/16/17 18:59 06:59 18:59 Intake Total 740 2386.667 Output Total 1000 1180 Balance -260 1206.667 Weight (lbs) 128 lb 14.4 oz 127 lb Intake: Intake, IV Amount 1836.667 D5-0.45NS 1,000 ml @ 100 1836.667 mls/hr IV .Q10H [facility] Rx#: [id number] Tube Feeding 540 550 Other 200 Output: Urine 1000 1175 Stool 5 Other: Stool Characteristics Liquid Liquid Liquid Brown Brown Brown Active Medications: Current Medications Acetaminophen (Tylenol 650mg Supp) 650 mg RC Q4HR PRN PRN Reason: FEVER >100.1 Stop: 07/30/17 13:39 Acetaminophen (Tylenol) 325 mg PO Q6H PRN PRN Reason: PAIN/FEVER Stop: 07/30/17 16:47 Last Admin: 06/15/17 08:05 Dose: 325 mg Acetylcysteine (Mucomyst 10%) 6 ml HHN Q4HRT [facility] Stop: 08/08/17 14:59 Last Admin: 06/16/17 15:43 Dose: 6 ml Albuterol Sulfate (Albuterol 2.5mg/3ml Neb Ud) 1.25 mg HHN Q4HRT [facility] Stop: 08/06/17 18:59 Last Admin: 06/16/17 15:42 Dose: 1.25 mg Ascorbic Acid (Vitamin C) 500 mg GT DAILY [facility] Stop: 07/31/17 08:59 Last Admin: 06/16/17 08:39 Dose: 500 mg Bisacodyl (Dulcolax 10 Mg Supp) 10 mg RC Q72HR PRN PRN Reason: Constipation Stop: 07/30/17 13:39 Ferdinand Oil/French Balsam/Trypsin (Venelex) 1 appl TP DAILY [facility] Stop: 08/15/17 08:59 Last Admin: 06/16/17 09:00 Dose: 1 appl Chlorhexidine Gluconate (Peridex) 15 ml MM 0800,1999 [facility] Stop: 08/13/17 19:59 Last Admin: 06/16/17 08:39 Dose: 15 ml Cholecalciferol (Vitamin D3) 500 iu PO DAILY [facility] Stop: 07/31/17 08:59 Last Admin: 06/16/17 08:39 Dose: 500 iu Diltiazem HCl (Cardizem) 5 mg IVP Q4H PRN PRN Reason: IF HR >120 Stop: 08/10/17 00:44 Last Admin: 06/16/17 04:23 Dose: 5 mg Famotidine (Pepcid) 20 mg IVP Q12H [facility] Stop: 07/31/17 12:44 Last Admin: 06/16/17 12:32 Dose: 20 mg Guaifenesin (Robitussin) 200 mg PO Q4HR PRN PRN Reason: Cough or Congestion Stop: 07/30/17 13:41 Last Admin: 06/10/17 20:59 Dose: 200 mg Norepinephrine Bitartrate 4 mg (/ Dextrose) 254 mls @ 30.48 mls/hr IV TITR PRN ; Protocol; 8 MCG/MIN PRN Reason: BP MAINTENANCE (PER PROTOCOL) Stop: 07/31/17 16:46 Last Titration: 06/03/17 00:00 Dose: 0 mcg/min, 0 mls/hr Dextrose/Sodium Chloride (D5-0.45ns) 1,000 mls @ 100 mls/hr IV .Q10H [facility] Stop: 08/14/17 08:38 Last Admin: 06/16/17 05:18 Dose: 100 mls/hr Ipratropium [place] (Atrovent Neb 0.5mg/2.5ml) 0.5 mg HHN Q4HRT [facility] Stop: 08/06/17 18:59 Last Admin: 06/16/17 15:43 Dose: 0.5 mg Lactulose (Cephulac) 30 gm PO BID [facility] Stop: 08/03/17 16:59 Last Admin: 06/16/17 08:39 Dose: 30 gm Lorazepam (Ativan) 0.5 mg IVP Q8HR PRN; Protocol PRN Reason: Agitation Stop: 08/14/17 14:52 Last Admin: 06/16/17 00:52 Dose: 0.5 mg Methylprednisolone Sodium Succinate (Solu-Medrol) 40 mg IVP Q8HR [facility] Stop: 07/30/17 20:59 Last Admin: 06/16/17 12:32 Dose: 40 mg Midodrine (Proamatine) 5 mg PO TID [facility] Stop: 08/10/17 20:59 Last Admin: 06/16/17 13:42 Dose: 5 mg Miscellaneous (Vte Chemical Prophylaxis Screen/ Admission) 1 ea PRN PRN PRN Reason: PROTOCOL Stop: 07/31/17 14:00 Miscellaneous (Probiotic Screen) 1 ea PRN PRN PRN Reason: PROTOCOL Stop: 07/31/17 16:02 Morphine Sulfate (Morphine) 2 mg IVP Q4HR PRN PRN Reason: Pain (Moderate) Stop: 08/13/17 10:37 Last Admin: 06/16/17 12:41 Dose: 2 mg Multivitamins/Vitamin C (Theragran) 1 tab GT DAILY [facility] Stop: 07/31/17 08:59 Last Admin: 06/16/17 10:00 Dose: 1 tab Ondansetron HCl (Zofran) 4 mg IV Q8H PRN PRN Reason: Nausea / Vomiting Stop: 07/30/17 13:41 Sodium Phosphate (Fleet Enema) 133 ml RC DAILY PRN PRN Reason: Constipation Stop: 07/30/17 13:39 General: weak, congested HEENT: NC/AT, PERRLA Neck: No LAD, deformity Lungs: congested, rales, ronchi Cardiovascular: RRR, Normal S1, Normal S2, without murmur Abdomen: soft, non-tender, non-distended, +GT, positive bowel sound Extremities: excoriation, ecchymosis, contracture, deformity, atrophy Neurological: unable to follow command - Procedures Procedures: Procedures Procedure Code Date INSERT EMERGENCY AIRWAY 92870 05/31/17 INSERTION OF ENDOTRACHEAL AIRWAY INTO [place], VIA OPENING [id number] 05/31/17 RESPIRATORY VENTILATION, GREATER THAN 96 CONSECUTIVE HOURS [id number] 05/31/17 VENT MGMT INPAT INIT DAY 74317 05/31/17 Internal Medicine Assmt/Plan - Assessment Assessment: S/p cardiopulmonary arrest Multilobar PNA lactic acidosis Acute Respiratory Failure Sepsis PNA leukocytosis hypokalemia acute renal insufficiency spastic quadriplegia seizures s/p colostomy s/p wound debridement DNR STATUS - Plan Plan: suction patient has needed vent support aspiration precautions inhalation treatments empiric ivantibiotics pulmo follow up continue current plan of care Nutritional Asmnt/Malnutr-PDOC - Dietary Evaluation Malnutrition Findings (Please click <Entered> for more info): Nutritional Asmnt/Malnutrition Start: 06/01/17 17: 31 Text: Status: Complete Freq: Document 06/01/17 17:31 LCJOSELING (Rec: 06/01/17 17:45 JOSELIN [id number]) Nutritional Asmnt/Malnutrition Patient General Information Nutritional Screening High Risk Consult Diagnosis renal failure, prespiratory failure r/o PNA Pertinent Medical Hx/Surgical Hx dementia, MR anemia, spastic quadriplegia, cerebral palsy, seizure, aspiration PNA, s/p respiratory failure, spsis, hyponatremia, gastroenteritis, PEG Subjective Information Consult received for [place]ibal 13 and pressure ulcer. Pt seen resting in bed at the time of visit, intubated, non-verbal noted. TF not running at this time. Current Diet Order/ Nutrition Support Isosource 1.5 87ml/hr x 17hr Pertinent Medications vitamin C, vitamin D3, D5w, teragran, piperacillin, miralax, cancomycin Pertinent Labs / na 160, Cl 120, K 4.1, BUN 29, Cr 0.3, Glucose 242, A1c 5.1, Ca 8.4, Mg 2.8 Nutritional Hx/Data Height 5 ft 6 in Height (Calculated Centimeters) 167.6 Current Weight (lbs) 105 lb 8 oz Weight (Calculated Kilograms) 47.9 Weight (Calculated Grams) 10474.0 [place] Body Weight 142 % [place] Body Weight 94 Body Mass Index (BMI) 17.0 Weight Status Underweight GI Symptoms GI Symptoms None Last BM none Difficult in: None Usual diet at home Jevity 1.5 87ml/hr x 17hr Skin Integrity/Comment: decubitus ulceration to sacrum Estimated Nutritional Goals Calories/Kcals/Kg 25-30 Kcals Calculated 2741-4247 based on IBW 65kg Protein g/k.2-1.4 Protein Calculated 78-91 consider respiratory failure and skin probelm Nutritional Problem 1. Problem Problem excessive intake from enteral feeding Etiology current TF regimen providing excessive calorie and protein than estimated nutritional needs Signs/Symptoms: current TF providing 114% of calorie needs and 110% of protein needs Malnutrition Alert Protein-Calorie Malnutrition N/A Is there a minimum of two criteria No selected? Query Text:Check all the applicable criteria. A minimum of two criteria are recommended for diagnosis of either severe or non-severe malnutrition. Intervention/Recommendation Comments 1. Recommend modify TF rate to 70ml/hr x 17hr to meet 100% of nutritional needs and avoid overfeeding. 2. Monitor TF rate, tolerance, wt weekly, skin integrity and labs 3. F/U as moderate risk in 3-5 days, 04/25-04/27 Expected Outcomes/Goals Expected Outcomes/Goals 1. Pt to meet 75-100% of nutritional needs via nutrition support with tolerance 2. 2. Wt stability, skin to remain intact, labs to approach WNL.
[2017-06-17] MEDS: Morphine Sulfate 2 mg/mL 1mL Syr IVP PRN ×4 (00:50→21:00)
[2017-06-17] MEDS: Albuterol Nebulizer 2.5mg/3mL HHN SCH ×6 (03:32→23:05)
[2017-06-17] MEDS: Acetylcysteine 10% 10 ML VIAL HHN SCH ×6 (03:32→23:06)
[2017-06-17] MEDS: Ipratropium Neb 0.5 mg/2.5 mL UD HHN SCH ×6 (03:32→23:06)
[2017-06-17] MEDS: D5-0.45NS 1,000 ML IV SCH ×2 (04:29→13:59)
[2017-06-17] MEDS: methylPREDNISolone SS 40 mg Vial IVP SCH ×3 (04:29→20:59)
[2017-06-17 05:18] LABS: ANION GAP 12.3 (7.0-16.0); BUN - UREA NITROGEN 15 mg/dL (7-25); CALCIUM SERUM 7.7 mg/dL (8.6-10.3); CARBON DIOXIDE 25.5 mEq/L (21.0-31.0); CHLORIDE 104 mEq/L (98-107); CREATININE - SERUM 0.2 mg/dL (0.7-1.3); GFR AFRICAN-AMERICAN > 60.0 ml/min (>90); GFR NON AFRICAN-AMERICAN > 60.0 ml/min; POTASSIUM SERUM 3.8 mEq/L (3.5-5.1); SODIUM SERUM 138 mEq/L (136-145)
[2017-06-17 05:29] LABS: LYMPHOCYTE ABSOLUTE 0.1 Th/cmm (1.5-3.0); MEAN CELL VOLUME 89.5 fl (80-99); MEAN CORPUSCULAR HGB CONC 34.7 pg (28.0-36.0); MEAN PLATELET VOLUME 7.9 fl; RED BLOOD COUNT 3.96 Mil/cmm (4.30-5.70); RED CELL DISTRIBUTION WIDTH 16.5 % (11.5-20.0); WHITE BLOOD COUNT 5.1 Th/cmm (4.8-10.8)
[2017-06-17 05:34] LABS: HEMATOCRIT 35.5 % (41.0-60); HEMOGLOBIN 12.3 gm/dL (12-16)
[2017-06-17 05:35] LABS: PLATELET COUNT 88 Th/cmm (150-400)
[2017-06-17 05:36] LABS: GLUCOSE 148 mg/dL (70-105)
[2017-06-17 06:15] LABS: BAND NEUTROPHILE 2 % (0-10); LYMPHOCYTE 3 % (20-50); MONOCYTE 1 % (2-10); NEUTROPHILS 94 % (40-80); TOTAL CELLS COUNTED 100
[2017-06-17 06:16] LABS: HYPOCHROMIA 1+; PLATELET ESTIMATE DECREASED PLATELETS (NORMAL)
[2017-06-17] MEDS: Multivitamin Tab GT SCH (08:32)
[2017-06-17] MEDS: Chlorhexidine Gluconate 0.12% 15mL Mouthwash MM SCH (08:33)
[2017-06-17] MEDS: Lactulose 10 Gm/15 mL 30mL UDC PO SCH ×2 (08:34→17:19)
[2017-06-17] MEDS: Venelex 60gm Tube TP SCH (08:34)
--- NOTE | 2017-06-17 09:34 | Diagnostic Imaging Report ---
Exam: KUB of the abdomen. HISTORY: Distention. Findings Frontal examination the abdomen reviewed. The study demonstrates fecal impaction of the rectum with significant distention of proximal left colon and small bowel with air. Incidentally staghorn renal calculi. Bony structures intact. IMPRESSION: Fecal Impaction the rectum, proximal distention of large and small bowel loops with air.
--- NOTE | 2017-06-17 10:00 | General Progress Note ---
Subjective - Review of Systems Service Date: 06/17/17 Events since last encounter: DNR as of yesterday still on vent Objective - Results Result Diagrams: 06/17/17 04:20 06/17/17 04:20 Recent Labs: Laboratory Last Values WBC 5.1 Th/cmm (4.8-10.8) 06/17/17 04:20 RBC 3.96 Mil/cmm (4.30-5.70) L 06/17/17 04:20 Hgb 12.3 gm/dL (12-16) D 06/17/17 04:20 Hct 35.5 % (41.0-60) L D 06/17/17 04:20 MCV 89.5 fl (80-99) 06/17/17 04:20 MCH 31.0 pg (26.0-30.0) H 06/17/17 04:20 MCHC Differential 34.7 pg (28.0-36.0) 06/17/17 04:20 RDW 16.5 % (11.5-20.0) 06/17/17 04:20 Plt Count 88 Th/cmm (150-400) L D 06/17/17 04:20 MPV 7.9 fl 06/17/17 04:20 Neutrophils % 89.7 % (40.0-80.0) H 06/05/17 05:48 Band Neutrophils % 2 % (0-10) 06/17/17 04:20 Lymphocytes % 6.6 % (20.0-50.0) L 06/05/17 05:48 Monocytes % 3.6 % (2.0-10.0) 06/05/17 05:48 Eosinophils % 0.1 % (0.0-5.0) 06/05/17 05:48 Basophils % 0.0 % (0.0-2.0) 06/05/17 05:48 Neutrophils (Manual) 94 % (40-80) H 06/17/17 04:20 Lymphocytes 3 % (20-50) L 06/17/17 04:20 Monocytes 1 % (2-10) L 06/17/17 04:20 Eosinophils 1 % (0-5) 06/16/17 04:25 Hypochromia 1+ 06/17/17 04:20 Platelet Estimate DECREASED PLATELETS (NORMAL) 06/17/17 04:20 Anisocytosis 1+ 06/16/17 04:25 PT 11.3 SECONDS (9.5-11.5) 06/11/17 06:10 INR 1.09 (0.5-1.4) 06/11/17 06:10 PTT (Actin FS) 23.1 SECONDS (26.0-38.0) L 06/11/17 06:10 Specimen Source Arterial 06/16/17 09:04 Sample Site Right Radial 06/16/17 09:04 pH 7.52 (7.35-7.45) H 06/16/17 09:04 pCO2 35.0 mmHg (35.0-45.0) 06/16/17 09:04 pO2 71.0 mmHg (80.0-100.0) L 06/16/17 09:04 HCO3 29.3 mEq/L (20.0-26.0) H 06/16/17 09:04 Base Excess 5.7 mEq/L (-3.0-3.0) H 06/16/17 09:04 O2 Saturation 96.0 % (92.0-100.0) 06/16/17 09:04 Endy Test PASS 06/16/17 09:04 Vent Rate 4 06/16/17 09:04 Inspired O2 30 06/16/17 09:04 Tidal Volume 500 06/16/17 09:04 PEEP 5 06/16/17 09:04 Pressure (ins/psv/peep) 10 06/16/17 09:04 Critical Value PW 06/16/17 09:04 Sodium 138 mEq/L (136-145) 06/17/17 04:20 Potassium 3.8 mEq/L (3.5-5.1) 06/17/17 04:20 Chloride 104 mEq/L (98-107) 06/17/17 04:20 Carbon Dioxide 25.5 mEq/L (21.0-31.0) 06/17/17 04:20 Anion Gap 12.3 (7.0-16.0) 06/17/17 04:20 BUN 15 mg/dL (7-25) 06/17/17 04:20 Creatinine 0.2 mg/dL (0.7-1.3) L 06/17/17 04:20 Est GFR ( Amer) > 60.0 ml/min (>90) 06/17/17 04:20 Est GFR (Non-Af Amer) > 60.0 ml/min 06/17/17 04:20 BUN/Creatinine Ratio 75.0 06/17/17 04:20 Glucose 148 mg/dL (70-105) H D 06/17/17 04:20 POC Glucose 124 MG/DL (70 - 105) H 06/14/17 05:50 Hemoglobin A1c % 5.1 % (4.0-6.0) 06/01/17 05:30 Whole Bld Lactic Acid 3.45 mmol/L (0.60-1.99) H* 06/03/17 06:45 Calcium 7.7 mg/dL (8.6-10.3) L 06/17/17 04:20 Magnesium 2.1 mg/dL (1.9-2.7) 06/07/17 06:30 Total Bilirubin 0.8 mg/dL (0.3-1.0) 06/15/17 06:00 AST 45 U/L (13-39) H 06/15/17 06:00 ALT 98 U/L (7-52) H 06/15/17 06:00 Alkaline Phosphatase 61 U/L (34-104) 06/15/17 06:00 Ammonia 64 umol/L (16-53) H 06/04/17 06:45 B-Natriuretic Peptide 129.0 pg/mL (5.0-100.0) H 06/04/17 06:45 Total Protein 4.3 gm/dL (6.0-8.3) L 06/15/17 06:00 Albumin 2.1 gm/dL (4.2-5.5) L 06/15/17 06:00 Globulin 2.2 gm/dL 06/15/17 06:00 Albumin/Globulin Ratio 1.0 (1.0-1.8) 06/15/17 06:00 TSH 0.72 uIU/ml (0.34-5.60) 06/01/17 05:30 Urine Source CATH 05/31/17 12:35 Urine Color YELLOW 05/31/17 12:35 Urine Clarity CLOUDY (CLEAR) 05/31/17 12:35 Urine pH 8.5 (4.6 - 8.0) 05/31/17 12:35 Ur Specific [place] 1.010 (1.005-1.030) 05/31/17 12:35 Urine Protein 30 mg/dL (NEGATIVE) H 05/31/17 12:35 Urine Glucose (UA) NEGATIVE mg/dL (NEGATIVE) 05/31/17 12:35 Urine Ketones NEGATIVE mg/dL (NEGATIVE) 05/31/17 12:35 Urine Blood MODERATE (NEGATIVE) H 05/31/17 12:35 Urine Nitrate NEGATIVE (NEGATIVE) 05/31/17 12:35 Urine Bilirubin NEGATIVE (NEGATIVE) 05/31/17 12:35 Urine Urobilinogen 0.2 E.U./dL (0.2 - 1.0) 05/31/17 12:35 Ur Leukocyte Esterase NEGATIVE (NEGATIVE) 05/31/17 12:35 Urine RBC >100 /hpf (0-5) H 05/31/17 12:35 Urine WBC 2-5 /hpf (0-5) H 05/31/17 12:35 Ur Epithelial Cells NONE SEEN /lpf (FEW) 05/31/17 12:35 Urine Bacteria NONE SEEN /hpf (NONE SEEN) 05/31/17 12:35 Stool Occult Blood NEGATIVE (NEGATIVE) 06/05/17 06:00 Gentamicin Peak 13.8 ug/ml (4.0-8.0) H 06/11/17 11:05 Gentamicin Trough 0.8 ug/ml (0.2-2.0) 06/11/17 08:00 Vancomycin Trough 10.7 ug/mL (10-20) 06/04/17 09:00 Hepatitis A IgM Ab Negative (Negative) 06/10/17 06:20 Hep Bs Antigen Negative (Negative) 06/10/17 06:20 Hep B Core IgM Ab Negative (Negative) 06/10/17 06:20 Hepatitis C Antibody 6.9 s/co ratio (0.0-0.9) H 06/10/17 06:20 Influenza A (Rapid) NEG FOR INF A 06/05/17 08:00 Influenza B (Rapid) NEG FOR INF B 06/05/17 08:00 Blood Type O POSITIVE 06/02/17 11:40 Antibody Screen NEGATIVE 06/02/17 11:40 Crossmatch See Detail 06/02/17 11:40 - Physical Exam Vitals and I&O: Vital Signs Temp 96.7 F 06/17/17 04:00 Pulse 106 06/17/17 09:06 Resp 16 06/17/17 07:00 BP 105/62 06/17/17 07:00 Pulse Ox 98 06/17/17 09:06 Intake & Output 06/16/17 06/17/17 06/17/17 18:59 06:59 18:59 Intake Total 1345 1460 Output Total 1100 1150 Balance 245 310 Weight (lbs) 59.421 kg 59.33 kg Intake: Intake, IV Amount 1000 1000 D5-0.45NS 1,000 ml @ 100 1000 1000 mls/hr IV .Q10H [facility] Rx#: [id number] Tube Feeding 145 160 Other 200 300 Output: Gastric Drainage 300 Urine 800 650 Stool 300 200 Other: Stool Characteristics Liquid Liquid Brown Brown Active Medications: Current Medications Acetaminophen (Tylenol 650mg Supp) 650 mg RC Q4HR PRN PRN Reason: FEVER >100.1 Stop: 07/30/17 13:39 Acetaminophen (Tylenol) 325 mg PO Q6H PRN PRN Reason: PAIN/FEVER Stop: 07/30/17 16:47 Last Admin: 06/15/17 08:05 Dose: 325 mg Acetylcysteine (Mucomyst 10%) 6 ml HHN Q4HRT [facility]ERNANDO Stop: 08/08/17 14:59 Last Admin: 06/17/17 07:17 Dose: 6 ml Albuterol Sulfate (Albuterol 2.5mg/3ml Neb Ud) 1.25 mg HHN Q4HRT FERNANDO Stop: 08/06/17 18:59 Last Admin: 06/17/17 07:17 Dose: 1.25 mg Ascorbic Acid (Vitamin C) 500 mg GT DAILY [facility] Stop: 07/31/17 08:59 Last Admin: 06/17/17 08:33 Dose: 500 mg Bisacodyl (Dulcolax 10 Mg Supp) 10 mg RC Q72HR PRN PRN Reason: Constipation Stop: 07/30/17 13:39 [place] Oil/[place] Balsam/Trypsin (Venelex) 1 appl TP DAILY [facility]ERNANDO Stop: 08/15/17 08:59 Last Admin: 06/17/17 08:34 Dose: 1 appl Chlorhexidine Gluconate (Peridex) 15 ml MM 0800,2000 [facility] Stop: 08/13/17 19:59 Last Admin: 06/17/17 08:33 Dose: 15 ml Cholecalciferol (Vitamin D3) 500 iu PO DAILY [facility] Stop: 07/31/17 08:59 Last Admin: 06/17/17 08:32 Dose: 500 iu Diltiazem HCl (Cardizem) 5 mg IVP Q4H PRN PRN Reason: IF HR >120 Stop: 08/10/17 00:44 Last Admin: 06/16/17 04:23 Dose: 5 mg Famotidine (Pepcid) 20 mg IVP Q12H [facility] Stop: 07/31/17 12:44 Last Admin: 06/17/17 00:50 Dose: 20 mg Guaifenesin (Robitussin) 200 mg PO Q4HR PRN PRN Reason: Cough or Congestion Stop: 07/30/17 13:41 Last Admin: 06/10/17 20:59 Dose: 200 mg Norepinephrine Bitartrate 4 mg (/ Dextrose) 254 mls @ 30.48 mls/hr IV TITR PRN ; Protocol; 8 MCG/MIN PRN Reason: BP MAINTENANCE (PER PROTOCOL) Stop: 07/31/17 16:46 Last Titration: 06/03/17 00:00 Dose: 0 mcg/min, 0 mls/hr Dextrose/Sodium Chloride (D5-0.45ns) 1,000 mls @ 100 mls/hr IV .Q10H [facility] Stop: 08/14/17 08:38 Last Admin: 06/17/17 04:29 Dose: 100 mls/hr Ipratropium [place] (Atrovent Neb 0.5mg/2.5ml) 0.5 mg HHN Q4HRT [facility] Stop: 08/06/17 18:59 Last Admin: 06/17/17 07:17 Dose: 0.5 mg Lactulose (Cephulac) 30 gm PO BID [facility]O Stop: 08/03/17 16:59 Last Admin: 06/17/17 08:34 Dose: Not Given Lorazepam (Ativan) 0.5 mg IVP Q8HR PRN; Protocol PRN Reason: Agitation Stop: 08/14/17 14:52 Last Admin: 06/16/17 00:52 Dose: 0.5 mg Methylprednisolone Sodium Succinate (Solu-Medrol) 40 mg IVP Q8HR [facility] Stop: 07/30/17 20:59 Last Admin: 06/17/17 04:29 Dose: 40 mg Midodrine (Proamatine) 5 mg PO TID [facility] Stop: 08/10/17 20:59 Last Admin: 06/17/17 08:31 Dose: 5 mg Miscellaneous (Vte Chemical Prophylaxis Screen/ Admission) 1 ea PRN PRN PRN Reason: PROTOCOL Stop: 07/31/17 14:00 Miscellaneous (Probiotic Screen) 1 ea PRN PRN PRN Reason: PROTOCOL Stop: 07/31/17 16:02 Morphine Sulfate (Morphine) 2 mg IVP Q4HR PRN PRN Reason: Pain (Moderate) Stop: 08/13/17 10:37 Last Admin: 06/17/17 00:50 Dose: 2 mg Multivitamins/Vitamin C (Theragran) 1 tab GT DAILY [facility] Stop: 07/31/17 08:59 Last Admin: 06/17/17 08:32 Dose: 1 tab Ondansetron HCl (Zofran) 4 mg IV Q8H PRN PRN Reason: Nausea / Vomiting Stop: 07/30/17 13:41 Sodium Phosphate (Fleet Enema) 133 ml RC DAILY PRN PRN Reason: Constipation Stop: 07/30/17 13:39 - Procedures Procedures: Procedures Procedure Code Date INSERT EMERGENCY AIRWAY 54983 05/31/17 INSERTION OF ENDOTRACHEAL AIRWAY INTO TRACHEA, VIA OPENING [id number] 05/31/17 RESPIRATORY VENTILATION, GREATER THAN 96 CONSECUTIVE HOURS [id number] 05/31/17 VENT MGMT INPAT INIT DAY 66216 05/31/17 Assessment/Plan - Problem List Patient Problems: All Active Problems COUGH AND CONGESTION (Acute) Nutritional Asmnt/Malnutr-PDOC - Dietary Evaluation Malnutrition Findings (Please click <Entered> for more info): Nutritional Asmnt/Malnutrition Start: 06/01/17 17: 31 Text: Status: Complete Freq: Document 06/01/17 17:31 SHELBIE (Rec: 06/01/17 17:45 [facility] Nutritional Asmnt/Malnutrition Patient General Information Nutritional Screening High Risk Consult Diagnosis renal failure, prespiratory failure r/o PNA Pertinent Medical Hx/Surgical Hx dementia, MR anemia, spastic quadriplegia, cerebral palsy, seizure, aspiration PNA, s/p respiratory failure, spsis, hyponatremia, gastroenteritis, PEG Subjective Information Consult received for Anibal 13 and pressure ulcer. Pt seen resting in bed at the time of visit, intubated, non-verbal noted. TF not running at this time. Current Diet Order/ Nutrition Support Isosource 1.5 87ml/hr x 17hr Pertinent Medications vitamin C, vitamin D3, D5w, teragran, piperacillin, miralax, cancomycin Pertinent Labs 06/01 na 160, Cl 120, K 4.1, BUN 29, Cr 0.3, Glucose 242, A1c 5.1, Ca 8.4, Mg 2.8 Nutritional Hx/Data Height 1.68 m Height (Calculated Centimeters) 167.6 Current Weight (lbs) 47.854 kg Weight (Calculated Kilograms) 47.9 Weight (Calculated Grams) 48285.0 [place] Body Weight 142 % [place] Body Weight 94 Body Mass Index (BMI) 17.0 Weight Status Underweight GI Symptoms GI Symptoms None Last BM none Difficult in: None Usual diet at home Jevity 1.5 87ml/hr x 17hr Skin Integrity/Comment: decubitus ulceration to sacrum Estimated Nutritional Goals Calories/Kcals/Kg 25-30 Kcals Calculated [id number] based on IBW 65kg Protein g/k.2-1.4 Protein Calculated 78-91 consider respiratory failure and skin probelm Nutritional Problem 1. Problem Problem excessive intake from enteral feeding Etiology current TF regimen providing excessive calorie and protein than estimated nutritional needs Signs/Symptoms: current TF providing 114% of calorie needs and 110% of protein needs Malnutrition Alert Protein-Calorie Malnutrition N/A Is there a minimum of two criteria No selected? Query Text:Check all the applicable criteria. A minimum of two criteria are recommended for diagnosis of either severe or non-severe malnutrition. Intervention/Recommendation Comments 1. Recommend modify TF rate to 70ml/hr x 17hr to meet 100% of nutritional needs and avoid overfeeding. 2. Monitor TF rate, tolerance, wt weekly, skin integrity and labs 3. F/U as moderate risk in 3-5 days, 04/25-04/27 Expected Outcomes/Goals Expected Outcomes/Goals 1. Pt to meet 75-100% of nutritional needs via nutrition support with tolerance 2. 2. Wt stability, skin to remain intact, labs to approach WNL.
--- NOTE | 2017-06-17 13:30 | Internal Medicine Prog Note ---
Internal Medicine Subjective - Subjective Service Date: 06/17/17 Patient is:: awake, non-verbal, non-interactive, in bed Patient Complaints of:: congestion Per staff patient has:: no adverse event, tolerating meds Internal Medicine Objective - Results Result Diagrams: 06/17/17 04:20 06/17/17 04:20 Recent Labs: Laboratory Last Values WBC 5.1 Th/cmm (4.8-10.8) 06/17/17 04:20 RBC 3.96 Mil/cmm (4.30-5.70) L 06/17/17 04:20 Hgb 12.3 gm/dL (12-16) D 06/17/17 04:20 Hct 35.5 % (41.0-60) L D 06/17/17 04:20 MCV 89.5 fl (80-99) 06/17/17 04:20 MCH 31.0 pg (26.0-30.0) H 06/17/17 04:20 MCHC Differential 34.7 pg (28.0-36.0) 06/17/17 04:20 RDW 16.5 % (11.5-20.0) 06/17/17 04:20 Plt Count 88 Th/cmm (150-400) L D 06/17/17 04:20 MPV 7.9 fl 06/17/17 04:20 Neutrophils % 89.7 % (40.0-80.0) H 06/05/17 05:48 Band Neutrophils % 2 % (0-10) 06/17/17 04:20 Lymphocytes % 6.6 % (20.0-50.0) L 06/05/17 05:48 Monocytes % 3.6 % (2.0-10.0) 06/05/17 05:48 Eosinophils % 0.1 % (0.0-5.0) 06/05/17 05:48 Basophils % 0.0 % (0.0-2.0) 06/05/17 05:48 Neutrophils (Manual) 94 % (40-80) H 06/17/17 04:20 Lymphocytes 3 % (20-50) L 06/17/17 04:20 Monocytes 1 % (2-10) L 06/17/17 04:20 Eosinophils 1 % (0-5) 06/16/17 04:25 Hypochromia 1+ 01/21/18 04:20 Platelet Estimate DECREASED PLATELETS (NORMAL) 06/17/17 04:20 Anisocytosis 1+ 06/16/17 04:25 PT 11.3 SECONDS (9.5-11.5) 06/11/17 06:10 INR 1.09 (0.5-1.4) 06/11/17 06:10 PTT (Actin FS) 23.1 SECONDS (26.0-38.0) L 06/11/17 06:10 Specimen Source Arterial 06/16/17 09:04 Sample Site Right Radial 06/16/17 09:04 pH 7.52 (7.35-7.45) H 06/16/17 09:04 pCO2 35.0 mmHg (35.0-45.0) 06/16/17 09:04 pO2 71.0 mmHg (80.0-100.0) L 06/16/17 09:04 HCO3 29.3 mEq/L (20.0-26.0) H 06/16/17 09:04 Base Excess 5.7 mEq/L (-3.0-3.0) H 06/16/17 09:04 O2 Saturation 96.0 % (92.0-100.0) 06/16/17 09:04 Endy Test PASS 06/16/17 09:04 Vent Rate 4 06/16/17 09:04 Inspired O2 30 06/16/17 09:04 Tidal Volume 500 06/16/17 09:04 PEEP 5 06/16/17 09:04 Pressure (ins/psv/peep) 10 06/16/17 09:04 Critical Value PW 06/16/17 09:04 Sodium 138 mEq/L (136-145) 06/17/17 04:20 Potassium 3.8 mEq/L (3.5-5.1) 06/17/17 04:20 Chloride 104 mEq/L (98-107) 06/17/17 04:20 Carbon Dioxide 25.5 mEq/L (21.0-31.0) 06/17/17 04:20 Anion Gap 12.3 (7.0-16.0) 06/17/17 04:20 BUN 15 mg/dL (7-25) 06/17/17 04:20 Creatinine 0.2 mg/dL (0.7-1.3) L 06/17/17 04:20 Est GFR ( Amer) > 60.0 ml/min (>90) 06/17/17 04:20 Est GFR (Non-Af Amer) > 60.0 ml/min 06/17/17 04:20 BUN/Creatinine Ratio 75.0 06/17/17 04:20 Glucose 148 mg/dL (70-105) H D 06/17/17 04:20 POC Glucose 124 MG/DL (70 - 105) H 06/14/17 05:50 Hemoglobin A1c % 5.1 % (4.0-6.0) 06/01/17 05:30 Whole Bld Lactic Acid 3.45 mmol/L (0.60-1.99) H* 06/03/17 06:45 Calcium 7.7 mg/dL (8.6-10.3) L 06/17/17 04:20 Magnesium 2.1 mg/dL (1.9-2.7) 06/07/17 06:30 Total Bilirubin 0.8 mg/dL (0.3-1.0) 06/15/17 06:00 AST 45 U/L (13-39) H 06/15/17 06:00 ALT 98 U/L (7-52) H 06/15/17 06:00 Alkaline Phosphatase 61 U/L (34-104) 06/15/17 06:00 Ammonia 64 umol/L (16-53) H 06/04/17 06:45 B-Natriuretic Peptide 129.0 pg/mL (5.0-100.0) H 06/04/17 06:45 Total Protein 4.3 gm/dL (6.0-8.3) L 06/15/17 06:00 Albumin 2.1 gm/dL (4.2-5.5) L 06/15/17 06:00 Globulin 2.2 gm/dL 06/15/17 06:00 Albumin/Globulin Ratio 1.0 (1.0-1.8) 06/15/17 06:00 TSH 0.72 uIU/ml (0.34-5.60) 06/01/17 05:30 Urine Source CATH 05/31/17 12:35 Urine Color YELLOW 05/31/17 12:35 Urine Clarity CLOUDY (CLEAR) 05/31/17 12:35 Urine pH 8.5 (4.6 - 8.0) 05/31/17 12:35 Ur Specific [place] 1.010 (1.005-1.030) 05/31/17 12:35 Urine Protein 30 mg/dL (NEGATIVE) H 05/31/17 12:35 Urine Glucose (UA) NEGATIVE mg/dL (NEGATIVE) 05/31/17 12:35 Urine Ketones NEGATIVE mg/dL (NEGATIVE) 05/31/17 12:35 Urine Blood MODERATE (NEGATIVE) H 05/31/17 12:35 Urine Nitrate NEGATIVE (NEGATIVE) 05/31/17 12:35 Urine Bilirubin NEGATIVE (NEGATIVE) 05/31/17 12:35 Urine Urobilinogen 0.2 E.U./dL (0.2 - 1.0) 05/31/17 12:35 Ur Leukocyte Esterase NEGATIVE (NEGATIVE) 05/31/17 12:35 Urine RBC >100 /hpf (0-5) H 05/31/17 12:35 Urine WBC 2-5 /hpf (0-5) H 05/31/17 12:35 Ur Epithelial Cells NONE SEEN /lpf (FEW) 05/31/17 12:35 Urine Bacteria NONE SEEN /hpf (NONE SEEN) 05/31/17 12:35 Stool Occult Blood NEGATIVE (NEGATIVE) 06/05/17 06:00 Gentamicin Peak 13.8 ug/ml (4.0-8.0) H 06/11/17 11:05 Gentamicin Trough 0.8 ug/ml (0.2-2.0) 06/11/17 08:00 Vancomycin Trough 10.7 ug/mL (10-20) 06/04/17 09:00 Hepatitis A IgM Ab Negative (Negative) 06/10/17 06:20 Hep Bs Antigen Negative (Negative) 06/10/17 06:20 Hep B Core IgM Ab Negative (Negative) 06/10/17 06:20 Hepatitis C Antibody 6.9 s/co ratio (0.0-0.9) H 06/10/17 06:20 Influenza A (Rapid) NEG FOR INF A 06/05/17 08:00 Influenza B (Rapid) NEG FOR INF B 06/05/17 08:00 Blood Type O POSITIVE 06/02/17 11:40 Antibody Screen NEGATIVE 06/02/17 11:40 Crossmatch See Detail 06/02/17 11:40 - Physical Exam Vitals and I&O: Vital Signs Temp 98.4 F 06/17/17 12:00 Pulse 106 06/17/17 13:06 Resp 13 06/17/17 12:00 BP 107/69 06/17/17 12:00 Pulse Ox 95 06/17/17 13:06 Intake & Output 06/16/17 06/17/17 06/17/17 18:59 06:59 18:59 Intake Total 1345 1460 Output Total 1100 1150 Balance 245 310 Weight (lbs) 131 lb 130 lb 12.8 oz Intake: Intake, IV Amount 1000 1000 D5-0.45NS 1,000 ml @ 100 1000 1000 mls/hr IV .Q10H [facility] Rx#: [id number] Tube Feeding 145 160 Other 200 300 Output: Gastric Drainage 300 Urine 800 650 Stool 300 200 Other: Stool Characteristics Liquid Liquid Brown Brown Active Medications: Current Medications Acetaminophen (Tylenol 650mg Supp) 650 mg RC Q4HR PRN PRN Reason: FEVER >100.1 Stop: 07/30/17 13:39 Acetaminophen (Tylenol) 325 mg PO Q6H PRN PRN Reason: PAIN/FEVER Stop: 07/30/17 16:47 Last Admin: 06/15/17 08:05 Dose: 325 mg Acetylcysteine (Mucomyst 10%) 6 ml HHN Q4HRT [facility] Stop: 08/08/17 14:59 Last Admin: 06/17/17 11:05 Dose: 6 ml Albuterol Sulfate (Albuterol 2.5mg/3ml Neb Ud) 1.25 mg HHN Q4HRT [facility] Stop: 08/06/17 18:59 Last Admin: 06/17/17 11:06 Dose: 1.25 mg Ascorbic Acid (Vitamin C) 500 mg GT DAILY [facility] Stop: 07/31/17 08:59 Last Admin: 06/17/17 08:33 Dose: 500 mg Bisacodyl (Dulcolax 10 Mg Supp) 10 mg RC Q72HR PRN PRN Reason: Constipation Stop: 07/30/17 13:39 [place]ingal Oil/[place] Balsam/Trypsin (Venelex) 1 appl TP DAILY [facility] Stop: 08/15/17 08:59 Last Admin: 06/17/17 08:34 Dose: 1 appl Chlorhexidine Gluconate (Peridex) 15 ml MM 0800,1999 [facility] Stop: 08/13/17 19:59 Last Admin: 06/17/17 08:33 Dose: 15 ml Cholecalciferol (Vitamin D3) 500 iu PO DAILY [facility] Stop: 07/31/17 08:59 Last Admin: 06/17/17 08:32 Dose: 500 iu Diltiazem HCl (Cardizem) 5 mg IVP Q4H PRN PRN Reason: IF HR >120 Stop: 08/10/17 00:44 Last Admin: 06/16/17 04:23 Dose: 5 mg Famotidine (Pepcid) 20 mg IVP Q12H FERNANDO Stop: 07/31/17 12:44 Last Admin: 06/17/17 12:17 Dose: 20 mg Guaifenesin (Robitussin) 200 mg PO Q4HR PRN PRN Reason: Cough or Congestion Stop: 07/30/17 13:41 Last Admin: 06/10/17 20:59 Dose: 200 mg Norepinephrine Bitartrate 4 mg (/ Dextrose) 254 mls @ 30.48 mls/hr IV TITR PRN ; Protocol; 8 MCG/MIN PRN Reason: BP MAINTENANCE (PER PROTOCOL) Stop: 07/31/17 16:46 Last Titration: 06/03/17 00:00 Dose: 0 mcg/min, 0 mls/hr Dextrose/Sodium Chloride (D5-0.45ns) 1,000 mls @ 100 mls/hr IV .Q10H [facility] Stop: 08/14/17 08:38 Last Admin: 06/17/17 04:29 Dose: 100 mls/hr Ipratropium [place] (Atrovent Neb 0.5mg/2.5ml) 0.5 mg HHN Q4HRT [facility] Stop: 08/06/17 18:59 Last Admin: 06/17/17 11:06 Dose: 0.5 mg Lactulose (Cephulac) 30 gm PO BID [facility] Stop: 08/03/17 16:59 Last Admin: 06/17/17 08:34 Dose: Not Given Lorazepam (Ativan) 0.5 mg IVP Q8HR PRN; Protocol PRN Reason: Agitation Stop: 08/14/17 14:52 Last Admin: 06/16/17 00:52 Dose: 0.5 mg Methylprednisolone Sodium Succinate (Solu-Medrol) 40 mg IVP Q8HR [facility] Stop: 07/30/17 20:59 Last Admin: 06/17/17 12:17 Dose: 40 mg Metoclopramide HCl (Reglan) 5 mg IVP Q8HR [facility] Stop: 08/16/17 12:59 Metoclopramide HCl (Reglan) 5 mg PO TID [facility] Stop: 08/16/17 13:59 Midodrine (Proamatine) 5 mg PO TID [facility] Stop: 08/10/17 20:59 Last Admin: 06/17/17 08:31 Dose: 5 mg Miscellaneous (Vte Chemical Prophylaxis Screen/ Admission) 1 ea PRN PRN PRN Reason: PROTOCOL Stop: 07/31/17 14:00 Miscellaneous (Probiotic Screen) 1 ea PRN PRN PRN Reason: PROTOCOL Stop: 07/31/17 16:02 Morphine Sulfate (Morphine) 2 mg IVP Q4HR PRN PRN Reason: Pain (Moderate) Stop: 08/13/17 10:37 Last Admin: 06/17/17 11:44 Dose: 2 mg Multivitamins/Vitamin C (Theragran) 1 tab GT DAILY [facility] Stop: 07/31/17 08:59 Last Admin: 06/17/17 08:32 Dose: 1 tab Ondansetron HCl (Zofran) 4 mg IV Q8H PRN PRN Reason: Nausea / Vomiting Stop: 07/30/17 13:41 Sodium Phosphate (Fleet Enema) 133 ml RC DAILY PRN PRN Reason: Constipation Stop: 07/30/17 13:39 General: weak, congested HEENT: NC/AT, PERRLA Neck: No LAD, deformity Lungs: congested, rales, ronchi Cardiovascular: RRR, Normal S1, Normal S2, without murmur Abdomen: soft, non-tender, non-distended, +GT, positive bowel sound Extremities: excoriation, ecchymosis, contracture, deformity, atrophy Neurological: unable to follow command - Procedures Procedures: Procedures Procedure Code Date INSERT EMERGENCY AIRWAY 59778 05/31/17 INSERTION OF ENDOTRACHEAL AIRWAY INTO [place]ACHEA, VIA OPENING [id number] 05/31/17 RESPIRATORY VENTILATION, GREATER THAN 96 CONSECUTIVE HOURS [id number] 05/31/17 VENT MGMT INPAT IN DAY 13737 05/31/17 Internal Medicine Assmt/Plan - Assessment Assessment: S/p cardiopulmonary arrest Multilobar PNA lactic acidosis Acute Respiratory Failure Sepsis PNA leukocytosis hypokalemia acute renal insufficiency spastic quadriplegia seizures s/p colostomy s/p wound debridement DNR STATUS - Plan Plan: suction patient has needed vent support aspiration precautions inhalation treatments empiric ivantibiotics pulmo follow up continue current plan of care Nutritional Asmnt/Malnutr-PDOC - Dietary Evaluation Malnutrition Findings (Please click <Entered> for more info): Nutritional Asmnt/Malnutrition Start: 06/01/17 17: 31 Text: Status: Complete Freq: Document 06/01/17 17:31 [facility] (Rec: 06/01/17 17:45 [facility] [id number]) Nutritional Asmnt/Malnutrition Patient General Information Nutritional Screening High Risk Consult Diagnosis renal failure, prespiratory failure r/o PNA Pertinent Medical Hx/Surgical Hx dementia, MR anemia, spastic quadriplegia, cerebral palsy, seizure, aspiration PNA, s/p respiratory failure, spsis, hyponatremia, gastroenteritis, PEG Subjective Information Consult received for Anibal 13 and pressure ulcer. Pt seen resting in bed at the time of visit, intubated, non-verbal noted. TF not running at this time. Current Diet Order/ Nutrition Support Isosource 1.5 87ml/hr x 17hr Pertinent Medications vitamin C, vitamin D3, D5w, teragran, piperacillin, miralax, cancomycin Pertinent Labs 06/01 na 160, Cl 120, K 4.1, BUN 29, Cr 0.3, Glucose 242, A1c 5.1, Ca 8.4, Mg 2.8 Nutritional Hx/Data Height 5 ft 6 in Height (Calculated Centimeters) 167.6 Current Weight (lbs) 105 lb 8 oz Weight (Calculated Kilograms) 47.9 Weight (Calculated Grams) 07838.0 [place] Body Weight 142 % [place] Body Weight 94 Body Mass Index (BMI) 17.0 Weight Status Underweight GI Symptoms GI Symptoms None Last BM none Difficult in: None Usual diet at home Jevity 1.5 87ml/hr x 17hr Skin Integrity/Comment: decubitus ulceration to sacrum Estimated Nutritional Goals Calories/Kcals/Kg 25-30 Kcals Calculated [id number] based on IBW 65kg Protein g/k.2-1.4 Protein Calculated 78-91 consider respiratory failure and skin probelm Nutritional Problem 1. Problem Problem excessive intake from enteral feeding Etiology current TF regimen providing excessive calorie and protein than estimated nutritional needs Signs/Symptoms: current TF providing 114% of calorie needs and 110% of protein needs Malnutrition Alert Protein-Calorie Malnutrition N/A Is there a minimum of two criteria No selected? Query Text:Check all the applicable criteria. A minimum of two criteria are recommended for diagnosis of either severe or non-severe malnutrition. Intervention/Recommendation Comments 1. Recommend modify TF rate to 70ml/hr x 17hr to meet 100% of nutritional needs and avoid overfeeding. 2. Monitor TF rate, tolerance, wt weekly, skin integrity and labs 3. F/U as moderate risk in 3-5 days, 04/25-04/27 Expected Outcomes/Goals Expected Outcomes/Goals 1. Pt to meet 75-100% of nutritional needs via nutrition support with tolerance 2. 2. Wt stability, skin to remain intact, labs to approach WNL.
[2017-06-17] MEDS: Metoclopramide 5 mg/mL 2mL Vial IVP SCH ×2 (16:38→21:05)
[2017-06-17 17:07] LABS: pH 7.53 (7.35-7.45)
[2017-06-17 17:08] LABS: ALLEN TEST YES
[2017-06-18] MEDS: D5-0.45NS 1,000 ML IV SCH ×2 (00:57→10:38)
[2017-06-18] MEDS: Ipratropium Neb 0.5 mg/2.5 mL UD HHN SCH ×6 (02:13→22:57)
[2017-06-18] MEDS: Albuterol Nebulizer 2.5mg/3mL HHN SCH ×6 (02:13→22:57)
[2017-06-18] MEDS: Acetylcysteine 10% 10 ML VIAL HHN SCH ×6 (02:14→22:57)
[2017-06-18] MEDS: Metoclopramide 5 mg/mL 2mL Vial IVP SCH ×2 (04:53→12:25)
[2017-06-18] MEDS: methylPREDNISolone SS 40 mg Vial IVP SCH ×3 (04:54→21:50)
[2017-06-18 07:11] LABS: EOSINOPHILE ABSOLUTE 0.4 Th/cmm (0.1-0.4); HEMOGLOBIN 9.5 gm/dL (12-16); LYMPHOCYTE ABSOLUTE 0.1 Th/cmm (1.5-3.0); MEAN CELL VOLUME 91.7 fl (80-99); MEAN CORPUSCULAR HEMOGLOBIN 30.8 pg (26.0-30.0); MEAN CORPUSCULAR HGB CONC 33.6 pg (28.0-36.0); MEAN PLATELET VOLUME 7.5 fl; MONOCYTE ABSOLUTE 1.3 Th/cmm (0.3-1.0); NEUTROPHILE ABSOLUTE 6.4 Th/cmm (1.8-8.0); RED BLOOD COUNT 3.07 Mil/cmm (4.30-5.70)
[2017-06-18 07:28] LABS: HEMATOCRIT 28.2 % (41.0-60); PLATELET COUNT 109 Th/cmm (150-400); WHITE BLOOD COUNT 8.2 Th/cmm (4.8-10.8)
[2017-06-18 07:40] LABS: ANION GAP 9.4 (7.0-16.0); BUN - UREA NITROGEN 13 mg/dL (7-25); CALCIUM SERUM 7.6 mg/dL (8.6-10.3); CARBON DIOXIDE 27.5 mEq/L (21.0-31.0); CHLORIDE 104 mEq/L (98-107); GLUCOSE 108 mg/dL (70-105); POTASSIUM SERUM 3.9 mEq/L (3.5-5.1); SODIUM SERUM 137 mEq/L (136-145)
[2017-06-18 07:45] LABS: LYMPHOCYTE 3 % (20-50); MONOCYTE 1 % (2-10); NEUTROPHILS 96 % (40-80); TOTAL CELLS COUNTED 100
[2017-06-18 07:46] LABS: PLATELET ESTIMATE SLIGHT DECREASED (NORMAL)
[2017-06-18 08:02] LABS: CREATININE - SERUM < 0.2 mg/dL (0.7-1.3); GFR AFRICAN-AMERICAN > 60.0 ml/min (>90); GFR NON AFRICAN-AMERICAN > 60.0 ml/min
[2017-06-18] MEDS: Lactulose 10 Gm/15 mL 30mL UDC PO SCH ×2 (09:27→18:20)
[2017-06-18] MEDS: Multivitamin Tab GT SCH (09:29)
[2017-06-18] MEDS: Venelex 60gm Tube TP SCH (09:30)
[2017-06-18] MEDS ORDERED: DOPamine 400 MG/250 ML BAG IV PRN (11:00)
[2017-06-18] MEDS ORDERED: D5-0.45NS 1,000 ML IV SCH (12:58)
--- NOTE | 2017-06-18 12:58 | Internal Medicine Prog Note ---
Internal Medicine Subjective - Subjective Patient seen and examined:: with staff, chart reviewed Patient is:: awake, non-verbal, non-interactive, in bed Patient Complaints of:: congestion Per staff patient has:: no adverse event, tolerating meds Internal Medicine Objective - Results Result Diagrams: 06/18/17 06:06 06/18/17 06:06 Recent Labs: Laboratory Last Values WBC 8.2 Th/cmm (4.8-10.8) D 06/18/17 06:06 RBC 3.07 Mil/cmm (4.30-5.70) L 06/18/17 06:06 Hgb 9.5 gm/dL (12-16) L 06/18/17 06:06 Hct 28.2 % (41.0-60) L D 06/18/17 06:06 MCV 91.7 fl (80-99) 06/18/17 06:06 MCH 30.8 pg (26.0-30.0) H 06/18/17 06:06 MCHC Differential 33.6 pg (28.0-36.0) 06/18/17 06:06 RDW 17.0 % (11.5-20.0) 06/18/17 06:06 Plt Count 109 Th/cmm (150-400) L D 06/18/17 06:06 MPV 7.5 fl 06/18/17 06:06 Neutrophils % 89.7 % (40.0-80.0) H 06/05/17 05:48 Band Neutrophils % 2 % (0-10) 06/17/17 04:20 Lymphocytes % 6.6 % (20.0-50.0) L 06/05/17 05:48 Monocytes % 3.6 % (2.0-10.0) 06/05/17 05:48 Eosinophils % 0.1 % (0.0-5.0) 06/05/17 05:48 Basophils % 0.0 % (0.0-2.0) 06/05/17 05:48 Neutrophils (Manual) 96 % (40-80) H 06/18/17 06:06 Lymphocytes 3 % (20-50) L 06/18/17 06:06 Monocytes 1 % (2-10) L 06/18/17 06:06 Eosinophils 1 % (0-5) 06/16/17 04:25 Hypochromia 1+ 06/17/17 04:20 Platelet Estimate SLIGHT DECREASED (NORMAL) 06/18/17 06:06 Anisocytosis 1+ 06/16/17 04:25 PT 11.3 SECONDS (9.5-11.5) 06/11/17 06:10 INR 1.09 (0.5-1.4) 06/11/17 06:10 PTT (Actin FS) 23.1 SECONDS (26.0-38.0) L 06/11/17 06:10 Specimen Source Arterial 06/17/17 16:16 Sample Site Right Radial 06/17/17 16:16 pH 7.53 (7.35-7.45) H 06/17/17 16:16 pCO2 37.0 mmHg (35.0-45.0) 06/17/17 16:16 pO2 70.0 mmHg (80.0-100.0) L 06/17/17 16:16 HCO3 31.0 mEq/L (20.0-26.0) H 06/17/17 16:16 Base Excess 7.8 mEq/L (-3.0-3.0) H 06/17/17 16:16 O2 Saturation 96.0 % (92.0-100.0) 06/17/17 16:16 Endy Test YES 06/17/17 16:16 Vent Rate NA 06/17/17 16:16 Inspired O2 40 06/17/17 16:16 Tidal Volume NA 06/17/17 16:16 PEEP NA 06/17/17 16:16 Pressure (ins/psv/peep) NA 06/17/17 16:16 Critical Value SH 06/17/17 16:16 Sodium 137 mEq/L (136-145) 06/18/17 06:06 Potassium 3.9 mEq/L (3.5-5.1) 06/18/17 06:06 Chloride 104 mEq/L (98-107) 06/18/17 06:06 Carbon Dioxide 27.5 mEq/L (21.0-31.0) 06/18/17 06:06 Anion Gap 9.4 (7.0-16.0) 06/18/17 06:06 BUN 13 mg/dL (7-25) 06/18/17 06:06 Creatinine < 0.2 mg/dL (0.7-1.3) L 06/18/17 06:06 Est GFR ( Amer) > 60.0 ml/min (>90) 06/18/17 06:06 Est GFR (Non-Af Amer) > 60.0 ml/min 06/18/17 06:06 BUN/Creatinine Ratio 65.0 06/18/17 06:06 Glucose 108 mg/dL (70-105) H 06/18/17 06:06 POC Glucose 124 MG/DL (70 - 105) H 06/14/17 05:50 Hemoglobin A1c % 5.1 % (4.0-6.0) 06/01/17 05:30 Whole Bld Lactic Acid 3.45 mmol/L (0.60-1.99) H* 06/03/17 06:45 Calcium 7.6 mg/dL (8.6-10.3) L 06/18/17 06:06 Magnesium 2.1 mg/dL (1.9-2.7) 06/07/17 06:30 Total Bilirubin 0.8 mg/dL (0.3-1.0) 06/15/17 06:00 AST 45 U/L (13-39) H 06/15/17 06:00 ALT 98 U/L (7-52) H 06/15/17 06:00 Alkaline Phosphatase 61 U/L (34-104) 06/15/17 06:00 Ammonia 64 umol/L (16-53) H 06/04/17 06:45 B-Natriuretic Peptide 129.0 pg/mL (5.0-100.0) H 06/04/17 06:45 Total Protein 4.3 gm/dL (6.0-8.3) L 06/15/17 06:00 Albumin 2.1 gm/dL (4.2-5.5) L 06/15/17 06:00 Globulin 2.2 gm/dL 06/15/17 06:00 Albumin/Globulin Ratio 1.0 (1.0-1.8) 06/15/17 06:00 TSH 0.72 uIU/ml (0.34-5.60) 06/01/17 05:30 Urine Source CATH 05/31/17 12:35 Urine Color YELLOW 05/31/17 12:35 Urine Clarity CLOUDY (CLEAR) 05/31/17 12:35 Urine pH 8.5 (4.6 - 8.0) 05/31/17 12:35 Ur Specific [place] 1.010 (1.005-1.030) 05/31/17 12:35 Urine Protein 30 mg/dL (NEGATIVE) H 05/31/17 12:35 Urine Glucose (UA) NEGATIVE mg/dL (NEGATIVE) 05/31/17 12:35 Urine Ketones NEGATIVE mg/dL (NEGATIVE) 05/31/17 12:35 Urine Blood MODERATE (NEGATIVE) H 05/31/17 12:35 Urine Nitrate NEGATIVE (NEGATIVE) 05/31/17 12:35 Urine Bilirubin NEGATIVE (NEGATIVE) 05/31/17 12:35 Urine Urobilinogen 0.2 E.U./dL (0.2 - 1.0) 05/31/17 12:35 Ur Leukocyte Esterase NEGATIVE (NEGATIVE) 05/31/17 12:35 Urine RBC >100 /hpf (0-5) H 05/31/17 12:35 Urine WBC 2-5 /hpf (0-5) H 05/31/17 12:35 Ur Epithelial Cells NONE SEEN /lpf (FEW) 05/31/17 12:35 Urine Bacteria NONE SEEN /hpf (NONE SEEN) 05/31/17 12:35 Stool Occult Blood NEGATIVE (NEGATIVE) 06/05/17 06:00 Gentamicin Peak 13.8 ug/ml (4.0-8.0) H 06/11/17 11:05 Gentamicin Trough 0.8 ug/ml (0.2-2.0) 06/11/17 08:00 Vancomycin Trough 10.7 ug/mL (10-20) 06/04/17 09:00 Hepatitis A IgM Ab Negative (Negative) 06/10/17 06:20 Hep Bs Antigen Negative (Negative) 06/10/17 06:20 Hep B Core IgM Ab Negative (Negative) 06/10/17 06:20 Hepatitis C Antibody 6.9 s/co ratio (0.0-0.9) H 06/10/17 06:20 Influenza A (Rapid) NEG FOR INF A 06/05/17 08:00 Influenza B (Rapid) NEG FOR INF B 06/05/17 08:00 Blood Type O POSITIVE 06/02/17 11:40 Antibody Screen NEGATIVE 06/02/17 11:40 Crossmatch See Detail 06/02/17 11:40 - Physical Exam Vitals and I&O: Vital Signs Temp 97.2 F 06/18/17 12:00 Pulse 95 06/18/17 12:00 Resp 12 06/18/17 12:00 BP 112/67 06/18/17 12:00 Pulse Ox 100 06/18/17 12:00 Intake & Output 06/17/17 06/18/17 06/18/17 18:59 06:59 18:59 Intake Total 950 1775 463.333 Output Total 2650 Balance 950 -875 463.333 Weight (lbs) 58.995 kg Intake: Intake, IV Amount 950 1505 463.333 D5-0.45NS 1,000 ml @ 096 700 5459 463.333 mls/hr IV .Q10H [facility] Rx#: [id number] Tube Feeding 120 Other 150 Output: Urine 2600 Stool 50 Active Medications: Current Medications Acetaminophen (Tylenol 650mg Supp) 650 mg RC Q4HR PRN PRN Reason: FEVER >100.1 Stop: 07/30/17 13:39 Acetaminophen (Tylenol) 325 mg PO Q6H PRN PRN Reason: PAIN/FEVER Stop: 07/30/17 16:47 Last Admin: 06/15/17 08:05 Dose: 325 mg Acetylcysteine (Mucomyst 10%) 6 ml HHN Q4HRT [facility] Stop: 08/08/17 14:59 Last Admin: 06/18/17 11:42 Dose: 6 ml Albuterol Sulfate (Albuterol 2.5mg/3ml Neb Ud) 1.25 mg HHN Q4HRT [facility] Stop: 08/06/17 18:59 Last Admin: 06/18/17 11:41 Dose: 1.25 mg Ascorbic Acid (Vitamin C) 500 mg GT DAILY [facility] Stop: 07/31/17 08:59 Last Admin: 06/18/17 09:28 Dose: 500 mg Bisacodyl (Dulcolax 10 Mg Supp) 10 mg RC Q72HR PRN PRN Reason: Constipation Stop: 07/30/17 13:39 [place] Oil/[place] Balsam/Trypsin (Venelex) 1 appl TP DAILY [facility] Stop: 08/15/17 08:59 Last Admin: 06/18/17 09:30 Dose: 1 appl Cholecalciferol (Vitamin D3) 500 iu PO DAILY [facility] Stop: 07/31/17 08:59 Last Admin: 06/18/17 09:28 Dose: 500 iu Diltiazem HCl (Cardizem) 5 mg IVP Q4H PRN PRN Reason: IF HR >120 Stop: 08/10/17 00:44 Last Admin: 06/16/17 04:23 Dose: 5 mg Famotidine (Pepcid) 20 mg IVP Q12H [facility] Stop: 07/31/17 12:44 Last Admin: 06/18/17 12:36 Dose: 20 mg Guaifenesin (Robitussin) 200 mg PO Q4HR PRN PRN Reason: Cough or Congestion Stop: 07/30/17 13:41 Last Admin: 06/10/17 20:59 Dose: 200 mg Norepinephrine Bitartrate 4 mg (/ Dextrose) 254 mls @ 30.48 mls/hr IV TITR PRN ; Protocol; 8 MCG/MIN PRN Reason: BP MAINTENANCE (PER PROTOCOL) Stop: 07/31/17 16:46 Last Titration: 06/03/17 00:00 Dose: 0 mcg/min, 0 mls/hr Dopamine HCl/Dextrose (Dopamine) 400 mg in 250 mls @ 0 mls/hr IV TITR PRN; Protocol; Per Protocol PRN Reason: BP MAINTENANCE (PER PROTOCOL) Stop: 08/17/17 10:59 Dextrose/Sodium Chloride (D5-0.45ns) 1,000 mls @ 70 mls/hr IV .[id number] [facility] Stop: 08/14/17 08:38 Ipratropium [place] (Atrovent Neb 0.5mg/2.5ml) 0.5 mg HHN Q4HRT [facility] Stop: 08/06/17 18:59 Last Admin: 06/18/17 11:41 Dose: 0.5 mg Lactulose (Cephulac) 30 gm PO BID [facility] Stop: 08/03/17 16:59 Last Admin: 06/18/17 09:27 Dose: 30 gm Lorazepam (Ativan) 0.5 mg IVP Q8HR PRN; Protocol PRN Reason: Agitation Stop: 08/14/17 14:52 Last Admin: 06/16/17 00:52 Dose: 0.5 mg Methylprednisolone Sodium Succinate (Solu-Medrol) 40 mg IVP Q8HR [facility] Stop: 07/30/17 20:59 Last Admin: 06/18/17 12:37 Dose: 40 mg Metoclopramide HCl (Reglan) 5 mg IVP Q8HR [facility] Stop: 08/16/17 12:59 Last Admin: 06/18/17 12:25 Dose: Not Given Metoclopramide HCl (Reglan) 5 mg PO TID [facility] Stop: 08/16/17 13:59 Last Admin: 06/18/17 09:28 Dose: 5 mg Midodrine (Proamatine) 5 mg PO TID [facility] Stop: 08/10/17 20:59 Last Admin: 06/18/17 09:28 Dose: 5 mg Miscellaneous (Vte Chemical Prophylaxis Screen/ Admission) 1 ea PRN PRN PRN Reason: PROTOCOL Stop: 07/31/17 14:00 Miscellaneous (Probiotic Screen) 1 ea PRN PRN PRN Reason: PROTOCOL Stop: 07/31/17 16:02 Morphine Sulfate (Morphine) 2 mg IVP Q4HR PRN PRN Reason: Pain (Moderate) Stop: 08/13/17 10:37 Last Admin: 06/17/17 21:00 Dose: 2 mg Multivitamins/Vitamin C (Theragran) 1 tab GT DAILY [facility] Stop: 07/31/17 08:59 Last Admin: 06/18/17 09:29 Dose: 1 tab Ondansetron HCl (Zofran) 4 mg IV Q8H PRN PRN Reason: Nausea / Vomiting Stop: 07/30/17 13:41 Sodium Phosphate (Fleet Enema) 133 ml RC DAILY PRN PRN Reason: Constipation Stop: 07/30/17 13:39 General: weak, congested HEENT: NC/AT, PERRLA Neck: No LAD, deformity Lungs: congested, rales, ronchi Cardiovascular: RRR, Normal S1, Normal S2, without murmur Abdomen: soft, non-tender, non-distended, +GT, positive bowel sound Extremities: excoriation, ecchymosis, contracture, deformity, atrophy Neurological: unable to follow command - Procedures Procedures: Procedures Procedure Code Date INSERT EMERGENCY AIRWAY 78552 05/31/17 INSERTION OF ENDOTRACHEAL AIRWAY INTO [place], VIA OPENING [id number] 05/31/17 RESPIRATORY VENTILATION, GREATER THAN 96 CONSECUTIVE HOURS [id number] 05/31/17 VENT MGMT INPAT INIT DAY 60711 05/31/17 Internal Medicine Assmt/Plan - Assessment Assessment: - Assessment Assessment: S/p cardiopulmonary arrest, now extubated lactic acidosis Acute Respiratory Failure Sepsis PNA leukocytosis hypokalemia acute renal insufficiency spastic quadriplegia seizures - Plan Plan: sputum cx vent support inhalation treatments empiric ivantibiotics pulmo follow up continue current plan of care dw father - Plan Plan: addendum spoke w father and mother on vent, unable to be wean off post sx dw anesthesia, dr english, will confer w dr dmitri jasso rn Nutritional Asmnt/Malnutr-PDOC - Dietary Evaluation Malnutrition Findings (Please click <Entered> for more info): Nutritional Asmnt/Malnutrition Start: 06/01/17 17: 31 Text: Status: Complete Freq: Document 06/01/17 17:31 LCHENG (Rec: 06/01/17 17:45 LCHENG [id number]) Nutritional Asmnt/Malnutrition Patient General Information Nutritional Screening High Risk Consult Diagnosis renal failure, prespiratory failure r/o PNA Pertinent Medical Hx/Surgical Hx dementia, MR anemia, spastic quadriplegia, cerebral palsy, seizure, aspiration PNA, s/p respiratory failure, spsis, hyponatremia, gastroenteritis, PEG Subjective Information Consult received for Anibal 13 and pressure ulcer. Pt seen resting in bed at the time of visit, intubated, non-verbal noted. TF not running at this time. Current Diet Order/ Nutrition Support Isosource 1.5 87ml/hr x 17hr Pertinent Medications vitamin C, vitamin D3, D5w, teragran, piperacillin, miralax, cancomycin Pertinent Labs 06/01 na 160, Cl 120, K 4.1, BUN 29, Cr 0.3, Glucose 242, A1c 5.1, Ca 8.4, Mg 2.8 Nutritional Hx/Data Height 1.68 m Height (Calculated Centimeters) 167.6 Current Weight (lbs) 47.854 kg Weight (Calculated Kilograms) 47.9 Weight (Calculated Grams) 60105.0 [place] Body Weight 142 % [place] Body Weight 94 Body Mass Index (BMI) 17.0 Weight Status Underweight GI Symptoms GI Symptoms None Last BM none Difficult in: None Usual diet at home Jevity 1.5 87ml/hr x 17hr Skin Integrity/Comment: decubitus ulceration to sacrum Estimated Nutritional Goals Calories/Kcals/Kg 25-30 Kcals Calculated [id number] based on IBW 65kg Protein g/k.2-1.4 Protein Calculated 78-91 consider respiratory failure and skin probelm Nutritional Problem 1. Problem Problem excessive intake from enteral feeding Etiology current TF regimen providing excessive calorie and protein than estimated nutritional needs Signs/Symptoms: current TF providing 114% of calorie needs and 110% of protein needs Malnutrition Alert Protein-Calorie Malnutrition N/A Is there a minimum of two criteria No selected? Query Text:Check all the applicable criteria. A minimum of two criteria are recommended for diagnosis of either severe or non-severe malnutrition. Intervention/Recommendation Comments 1. Recommend modify TF rate to 70ml/hr x 17hr to meet 100% of nutritional needs and avoid overfeeding. 2. Monitor TF rate, tolerance, wt weekly, skin integrity and labs 3. F/U as moderate risk in 3-5 days, 04/25-04/27 Expected Outcomes/Goals Expected Outcomes/Goals 1. Pt to meet 75-100% of nutritional needs via nutrition support with tolerance 2. 2. Wt stability, skin to remain intact, labs to approach WNL.
[2017-06-19] MEDS: Metoclopramide 5 mg/mL 2mL Vial IVP SCH ×4 (00:40→20:42)
[2017-06-19] MEDS: Albuterol Nebulizer 2.5mg/3mL HHN SCH ×6 (02:52→23:52)
[2017-06-19] MEDS: Acetylcysteine 10% 10 ML VIAL HHN SCH ×6 (02:52→23:51)
[2017-06-19] MEDS: Ipratropium Neb 0.5 mg/2.5 mL UD HHN SCH ×6 (02:53→23:52)
[2017-06-19] MEDS: methylPREDNISolone SS 40 mg Vial IVP SCH ×3 (04:19→20:42)
[2017-06-19] MEDS: Lactulose 10 Gm/15 mL 30mL UDC PO SCH ×2 (09:15→17:24)
[2017-06-19] MEDS: Multivitamin Tab GT SCH (09:16)
--- NOTE | 2017-06-19 13:25 | Internal Medicine Prog Note ---
Internal Medicine Subjective - Subjective Patient seen and examined:: with staff, chart reviewed, other (family at bedside ) Patient is:: awake, non-verbal, non-interactive, in bed Patient Complaints of:: congestion Per staff patient has:: no adverse event, tolerating meds Internal Medicine Objective - Results Result Diagrams: 06/18/17 06:06 06/18/17 06:06 Recent Labs: Laboratory Last Values WBC 8.2 Th/cmm (4.8-10.8) D 06/18/17 06:06 RBC 3.07 Mil/cmm (4.30-5.70) L 06/18/17 06:06 Hgb 9.5 gm/dL (12-16) L 06/18/17 06:06 Hct 28.2 % (41.0-60) L D 06/18/17 06:06 MCV 91.7 fl (80-99) 06/18/17 06:06 MCH 30.8 pg (26.0-30.0) H 06/18/17 06:06 MCHC Differential 33.6 pg (28.0-36.0) 06/18/17 06:06 RDW 17.0 % (11.5-20.0) 06/18/17 06:06 Plt Count 109 Th/cmm (150-400) L D 06/18/17 06:06 MPV 7.5 fl 06/18/17 06:06 Neutrophils % 89.7 % (40.0-80.0) H 06/05/17 05:48 Band Neutrophils % 2 % (0-10) 06/17/17 04:20 Lymphocytes % 6.6 % (20.0-50.0) L 06/05/17 05:48 Monocytes % 3.6 % (2.0-10.0) 06/05/17 05:48 Eosinophils % 0.1 % (0.0-5.0) 06/05/17 05:48 Basophils % 0.0 % (0.0-2.0) 06/05/17 05:48 Neutrophils (Manual) 96 % (40-80) H 06/18/17 06:06 Lymphocytes 3 % (20-50) L 06/18/17 06:06 Monocytes 1 % (2-10) L 06/18/17 06:06 Eosinophils 1 % (0-5) 06/16/17 04:25 Hypochromia 1+ 06/17/17 04:20 Platelet Estimate SLIGHT DECREASED (NORMAL) 06/18/17 06:06 Anisocytosis 1+ 06/16/17 04:25 PT 11.3 SECONDS (9.5-11.5) 06/11/17 06:10 INR 1.09 (0.5-1.4) 06/11/17 06:10 PTT (Actin FS) 23.1 SECONDS (26.0-38.0) L 06/11/17 06:10 Specimen Source Arterial 06/17/17 16:16 Sample Site Right Radial 06/17/17 16:16 pH 7.53 (7.35-7.45) H 06/17/17 16:16 pCO2 37.0 mmHg (35.0-45.0) 06/17/17 16:16 pO2 70.0 mmHg (80.0-100.0) L 06/17/17 16:16 HCO3 31.0 mEq/L (20.0-26.0) H 06/17/17 16:16 Base Excess 7.8 mEq/L (-3.0-3.0) H 06/17/17 16:16 O2 Saturation 96.0 % (92.0-100.0) 06/17/17 16:16 Endy Test YES 06/17/17 16:16 Vent Rate NA 06/17/17 16:16 Inspired O2 40 06/17/17 16:16 Tidal Volume NA 06/17/17 16:16 PEEP NA 06/17/17 16:16 Pressure (ins/psv/peep) NA 06/17/17 16:16 Critical Value SH 06/17/17 16:16 Sodium 137 mEq/L (136-145) 06/18/17 06:06 Potassium 3.9 mEq/L (3.5-5.1) 06/18/17 06:06 Chloride 104 mEq/L (98-107) 06/18/17 06:06 Carbon Dioxide 27.5 mEq/L (21.0-31.0) 06/18/17 06:06 Anion Gap 9.4 (7.0-16.0) 06/18/17 06:06 BUN 13 mg/dL (7-25) 06/18/17 06:06 Creatinine < 0.2 mg/dL (0.7-1.3) L 06/18/17 06:06 Est GFR ( Amer) > 60.0 ml/min (>90) 06/18/17 06:06 Est GFR (Non-Af Amer) > 60.0 ml/min 06/18/17 06:06 BUN/Creatinine Ratio 65.0 06/18/17 06:06 Glucose 108 mg/dL (70-105) H 06/18/17 06:06 POC Glucose 124 MG/DL (70 - 105) H 06/14/17 05:50 Hemoglobin A1c % 5.1 % (4.0-6.0) 06/01/17 05:30 Whole Bld Lactic Acid 3.45 mmol/L (0.60-1.99) H* 06/03/17 06:45 Calcium 7.6 mg/dL (8.6-10.3) L 06/18/17 06:06 Magnesium 2.1 mg/dL (1.9-2.7) 06/07/17 06:30 Total Bilirubin 0.8 mg/dL (0.3-1.0) 06/15/17 06:00 AST 45 U/L (13-39) H 06/15/17 06:00 ALT 98 U/L (7-52) H 06/15/17 06:00 Alkaline Phosphatase 61 U/L (34-104) 06/15/17 06:00 Ammonia 64 umol/L (16-53) H 06/04/17 06:45 B-Natriuretic Peptide 129.0 pg/mL (5.0-100.0) H 06/04/17 06:45 Total Protein 4.3 gm/dL (6.0-8.3) L 06/15/17 06:00 Albumin 2.1 gm/dL (4.2-5.5) L 06/15/17 06:00 Globulin 2.2 gm/dL 06/15/17 06:00 Albumin/Globulin Ratio 1.0 (1.0-1.8) 06/15/17 06:00 TSH 0.72 uIU/ml (0.34-5.60) 06/01/17 05:30 Urine Source CATH 05/31/17 12:35 Urine Color YELLOW 05/31/17 12:35 Urine Clarity CLOUDY (CLEAR) 05/31/17 12:35 Urine pH 8.5 (4.6 - 8.0) 05/31/17 12:35 Ur Specific [place] 1.010 (1.005-1.030) 05/31/17 12:35 Urine Protein 30 mg/dL (NEGATIVE) H 05/31/17 12:35 Urine Glucose (UA) NEGATIVE mg/dL (NEGATIVE) 05/31/17 12:35 Urine Ketones NEGATIVE mg/dL (NEGATIVE) 05/31/17 12:35 Urine Blood MODERATE (NEGATIVE) H 05/31/17 12:35 Urine Nitrate NEGATIVE (NEGATIVE) 05/31/17 12:35 Urine Bilirubin NEGATIVE (NEGATIVE) 05/31/17 12:35 Urine Urobilinogen 0.2 E.U./dL (0.2 - 1.0) 05/31/17 12:35 Ur Leukocyte Esterase NEGATIVE (NEGATIVE) 05/31/17 12:35 Urine RBC >100 /hpf (0-5) H 05/31/17 12:35 Urine WBC 2-5 /hpf (0-5) H 05/31/17 12:35 Ur Epithelial Cells NONE SEEN /lpf (FEW) 05/31/17 12:35 Urine Bacteria NONE SEEN /hpf (NONE SEEN) 05/31/17 12:35 Stool Occult Blood NEGATIVE (NEGATIVE) 06/05/17 06:00 Gentamicin Peak 13.8 ug/ml (4.0-8.0) H 06/11/17 11:05 Gentamicin Trough 0.8 ug/ml (0.2-2.0) 06/11/17 08:00 Vancomycin Trough 10.7 ug/mL (10-20) 06/04/17 09:00 Hepatitis A IgM Ab Negative (Negative) 06/10/17 06:20 Hep Bs Antigen Negative (Negative) 06/10/17 06:20 Hep B Core IgM Ab Negative (Negative) 06/10/17 06:20 Hepatitis C Antibody 6.9 s/co ratio (0.0-0.9) H 06/10/17 06:20 Influenza A (Rapid) NEG FOR INF A 06/05/17 08:00 Influenza B (Rapid) NEG FOR INF B 06/05/17 08:00 Blood Type O POSITIVE 06/02/17 11:40 Antibody Screen NEGATIVE 06/02/17 11:40 Crossmatch See Detail 06/02/17 11:40 - Physical Exam Vitals and I&O: Vital Signs Temp 97.4 F 06/19/17 08:01 Pulse 75 06/19/17 11:30 Resp 16 06/19/17 11:30 BP 103/57 06/19/17 08:01 Pulse Ox 96 06/19/17 11:30 Intake & Output 06/18/17 06/19/17 06/19/17 18:59 06:59 18:59 Intake Total 463.333 680 30 Output Total 1800 150 Balance 463.333 -1120 -120 Weight (lbs) 58.967 kg 74.843 kg Intake: Intake, IV Amount 463.333 D5-0.45NS 1,000 ml @ 100 463.333 mls/hr IV .Q10H [facility] Rx#: [id number] Tube Feeding 480 30 Other 200 Output: Gastric Drainage 150 Urine 1400 Stool 400 Other: Stool Characteristics Liquid Liquid Liquid Brown Active Medications: Current Medications Acetaminophen (Tylenol 650mg Supp) 650 mg RC Q4HR PRN PRN Reason: FEVER >100.1 Stop: 07/30/17 13:39 Acetaminophen (Tylenol) 325 mg PO Q6H PRN PRN Reason: PAIN/FEVER Stop: 07/30/17 16:47 Last Admin: 06/19/17 04:20 Dose: 325 mg Acetylcysteine (Mucomyst 10%) 6 ml HHN Q4HRT [facility] Stop: 08/08/17 14:59 Last Admin: 06/19/17 11:30 Dose: 6 ml Albuterol Sulfate (Albuterol 2.5mg/3ml Neb Ud) 1.25 mg HHN Q4HRT [facility] Stop: 08/06/17 18:59 Last Admin: 06/19/17 11:30 Dose: 1.25 mg Ascorbic Acid (Vitamin C) 500 mg GT DAILY FERNANDO Stop: 07/31/17 08:59 Last Admin: 06/19/17 09:16 Dose: 500 mg Bisacodyl (Dulcolax 10 Mg Supp) 10 mg RC Q72HR PRN PRN Reason: Constipation Stop: 07/30/17 13:39 [place] Oil/Italian Balsam/Trypsin (Venelex) 1 appl TP DAILY [facility] Stop: 08/15/17 08:59 Last Admin: 06/18/17 09:30 Dose: 1 appl Cholecalciferol (Vitamin D3) 500 iu PO DAILY [facility] Stop: 07/31/17 08:59 Last Admin: 06/19/17 09:16 Dose: 500 iu Diltiazem HCl (Cardizem) 5 mg IVP Q4H PRN PRN Reason: IF HR >120 Stop: 08/10/17 00:44 Last Admin: 06/16/17 04:23 Dose: 5 mg Famotidine (Pepcid) 20 mg IVP Q12H FERNANDO Stop: 07/31/17 12:44 Last Admin: 06/19/17 00:43 Dose: 20 mg Guaifenesin (Robitussin) 200 mg PO Q4HR PRN PRN Reason: Cough or Congestion Stop: 07/30/17 13:41 Last Admin: 06/10/17 20:59 Dose: 200 mg Norepinephrine Bitartrate 4 mg (/ Dextrose) 254 mls @ 30.48 mls/hr IV TITR PRN ; Protocol; 8 MCG/MIN PRN Reason: BP MAINTENANCE (PER PROTOCOL) Stop: 07/31/17 16:46 Last Titration: 06/03/17 00:00 Dose: 0 mcg/min, 0 mls/hr Dopamine HCl/Dextrose (Dopamine) 400 mg in 250 mls @ 0 mls/hr IV TITR PRN; Protocol; Per Protocol PRN Reason: BP MAINTENANCE (PER PROTOCOL) Stop: 08/17/17 10:59 Dextrose/Sodium Chloride (D5-0.45ns) 1,000 mls @ 70 mls/hr IV .[id number] [facility] Stop: 08/14/17 08:38 Last Admin: 06/18/17 21:50 Dose: 70 mls/hr Ipratropium [place] (Atrovent Neb 0.5mg/2.5ml) 0.5 mg HHN Q4HRT [facility] Stop: 08/06/17 18:59 Last Admin: 06/19/17 11:30 Dose: 0.5 mg Lactulose (Cephulac) 30 gm PO BID [facility] Stop: 08/03/17 16:59 Last Admin: 06/19/17 09:15 Dose: 30 gm Lorazepam (Ativan) 0.5 mg IVP Q8HR PRN; Protocol PRN Reason: Agitation Stop: 08/14/17 14:52 Last Admin: 06/16/17 00:52 Dose: 0.5 mg Methylprednisolone Sodium Succinate (Solu-Medrol) 40 mg IVP Q8HR [facility] Stop: 07/30/17 20:59 Last Admin: 06/19/17 04:19 Dose: 40 mg Metoclopramide HCl (Reglan) 5 mg IVP Q8HR [facility] Stop: 08/16/17 12:59 Last Admin: 06/19/17 04:20 Dose: Not Given Metoclopramide HCl (Reglan) 5 mg PO TID [facility] Stop: 08/16/17 13:59 Last Admin: 06/19/17 09:15 Dose: 5 mg Midodrine (Proamatine) 5 mg PO TID [facility] Stop: 08/10/17 20:59 Last Admin: 06/19/17 09:16 Dose: 5 mg Miscellaneous (Vte Chemical Prophylaxis Screen/ Admission) 1 [facility] PRN PRN PRN Reason: PROTOCOL Stop: 07/31/17 14:00 Miscellaneous (Probiotic Screen) 1 [facility] PRN PRN PRN Reason: PROTOCOL Stop: 07/31/17 16:02 Morphine Sulfate (Morphine) 2 mg IVP Q4HR PRN PRN Reason: Pain (Moderate) Stop: 08/13/17 10:37 Last Admin: 06/17/17 21:00 Dose: 2 mg Multivitamins/Vitamin C (Theragran) 1 tab GT DAILY [facility] Stop: 07/31/17 08:59 Last Admin: 06/19/17 09:16 Dose: 1 tab Ondansetron HCl (Zofran) 4 mg IV Q8H PRN PRN Reason: Nausea / Vomiting Stop: 07/30/17 13:41 Sodium Phosphate (Fleet Enema) 133 ml RC DAILY PRN PRN Reason: Constipation Stop: 07/30/17 13:39 General: weak, congested HEENT: NC/AT, PERRLA Neck: No LAD, deformity Lungs: congested, rales, ronchi Cardiovascular: RRR, Normal S1, Normal S2, without murmur Abdomen: soft, non-tender, non-distended, +GT, positive bowel sound Extremities: excoriation, ecchymosis, contracture, deformity, atrophy Neurological: unable to follow command - Procedures Procedures: Procedures Procedure Code Date INSERT EMERGENCY AIRWAY 61253 05/31/17 INSERTION OF ENDOTRACHEAL AIRWAY INTO TRACHEA, VIA OPENING [id number] 05/31/17 RESPIRATORY VENTILATION, GREATER THAN 96 CONSECUTIVE HOURS [id number] 05/31/17 VENT MGMT INPAT INIT DAY 56041 05/31/17 Internal Medicine Assmt/Plan - Assessment Assessment: - Assessment Assessment: S/p cardiopulmonary arrest, now extubated lactic acidosis Acute Respiratory Failure Sepsis PNA leukocytosis hypokalemia acute renal insufficiency spastic quadriplegia seizures - Plan Plan: sputum cx vent support inhalation treatments empiric ivantibiotics pulmo follow up continue current plan of care dw father - Plan Plan: addendum spoke w father and mother on vent, unable to be wean off post sx dw anesthesia, dr english, will confer w dr dmitri jasso rn Nutritional Asmnt/Malnutr-PDOC - Dietary Evaluation Malnutrition Findings (Please click <Entered> for more info): Nutritional Asmnt/Malnutrition Start: 06/01/17 17: 31 Text: Status: Complete Freq: Document 06/01/17 17:31 LCHENG (Rec: 06/01/17 17:45 LCHENG [id number]) Nutritional Asmnt/Malnutrition Patient General Information Nutritional Screening High Risk Consult Diagnosis renal failure, prespiratory failure r/o PNA Pertinent Medical Hx/Surgical Hx dementia, MR anemia, spastic quadriplegia, cerebral palsy, seizure, aspiration PNA, s/p respiratory failure, spsis, hyponatremia, gastroenteritis, PEG Subjective Information Consult received for Anibal 13 and pressure ulcer. Pt seen resting in bed at the time of visit, intubated, non-verbal noted. TF not running at this time. Current Diet Order/ Nutrition Support Isosource 1.5 87ml/hr x 17hr Pertinent Medications vitamin C, vitamin D3, D5w, teragran, piperacillin, miralax, cancomycin Pertinent Labs 1/ na 160, Cl 120, K 4.1, BUN 29, Cr 0.3, Glucose 242, A1c 5.1, Ca 8.4, Mg 2.8 Nutritional Hx/Data Height 1.68 m Height (Calculated Centimeters) 167.6 Current Weight (lbs) 47.854 kg Weight (Calculated Kilograms) 47.9 Weight (Calculated Grams) 92426.0 [place] Body Weight 142 % [place] Body Weight 94 Body Mass Index (BMI) 17.0 Weight Status Underweight GI Symptoms GI Symptoms None Last BM none Difficult in: None Usual diet at home Jevity 1.5 87ml/hr x 17hr Skin Integrity/Comment: decubitus ulceration to sacrum Estimated Nutritional Goals Calories/Kcals/Kg 25-30 Kcals Calculated [id number] based on IBW 65kg Protein g/k.2-1.4 Protein Calculated 78-91 consider respiratory failure and skin probelm Nutritional Problem 1. Problem Problem excessive intake from enteral feeding Etiology current TF regimen providing excessive calorie and protein than estimated nutritional needs Signs/Symptoms: current TF providing 114% of calorie needs and 110% of protein needs Malnutrition Alert Protein-Calorie Malnutrition N/A Is there a minimum of two criteria No selected? Query Text:Check all the applicable criteria. A minimum of two criteria are recommended for diagnosis of either severe or non-severe malnutrition. Intervention/Recommendation Comments 1. Recommend modify TF rate to 70ml/hr x 17hr to meet 100% of nutritional needs and avoid overfeeding. 2. Monitor TF rate, tolerance, wt weekly, skin integrity and labs 3. F/U as moderate risk in 3-5 days, 04/25-04/27 Expected Outcomes/Goals Expected Outcomes/Goals 1. Pt to meet 75-100% of nutritional needs via nutrition support with tolerance 2. 2. Wt stability, skin to remain intact, labs to approach WNL.
[2017-06-19] MEDS: D5-0.45NS 1,000 ML IV SCH (13:54)
[2017-06-19] MEDS: Venelex 60gm Tube TP SCH (14:05)
[2017-06-19] MEDS ORDERED: Metoclopramide 5 mg/mL 2mL Vial ONE (20:31)
[2017-06-20] MEDS: Albuterol Nebulizer 2.5mg/3mL HHN SCH ×6 (02:07→22:28)
[2017-06-20] MEDS: Acetylcysteine 10% 10 ML VIAL HHN SCH ×6 (02:07→22:28)
[2017-06-20] MEDS: Ipratropium Neb 0.5 mg/2.5 mL UD HHN SCH ×6 (02:07→22:28)
[2017-06-20] MEDS: Diltiazem 5 mg/mL 5mL Vial IVP PRN ×3 (02:45→17:42)
[2017-06-20] MEDS: Morphine Sulfate 2 mg/mL 1mL Syr IVP PRN ×2 (02:50→14:25)
[2017-06-20] MEDS ORDERED: Metoclopramide 5 mg/mL 2mL Vial ONE (04:11)
[2017-06-20] MEDS: methylPREDNISolone SS 40 mg Vial IVP SCH ×3 (04:13→21:13)
[2017-06-20] MEDS: Metoclopramide 5 mg/mL 2mL Vial IVP SCH ×2 (04:13→12:24)
[2017-06-20 06:03] LABS: ANION GAP 7.2 (7.0-16.0); BUN - UREA NITROGEN 14 mg/dL (7-25); CALCIUM SERUM 7.5 mg/dL (8.6-10.3); CARBON DIOXIDE 27.9 mEq/L (21.0-31.0); CHLORIDE 106 mEq/L (98-107); CREATININE - SERUM 0.2 mg/dL (0.7-1.3); GFR AFRICAN-AMERICAN > 60.0 ml/min (>90); GFR NON AFRICAN-AMERICAN > 60.0 ml/min; GLUCOSE 167 mg/dL (70-105); POTASSIUM SERUM 3.1 mEq/L (3.5-5.1); SODIUM SERUM 138 mEq/L (136-145)
[2017-06-20 06:05] LABS: HEMATOCRIT 30.2 % (41.0-60); HEMOGLOBIN 10.1 gm/dL (12-16); LYMPHOCYTE ABSOLUTE 0.2 Th/cmm (1.5-3.0); MEAN CELL VOLUME 91.1 fl (80-99); MEAN CORPUSCULAR HEMOGLOBIN 30.6 pg (26.0-30.0); MEAN CORPUSCULAR HGB CONC 33.6 pg (28.0-36.0); NEUTROPHILE ABSOLUTE 2.9 Th/cmm (1.8-8.0); PLATELET COUNT 94 Th/cmm (150-400); RED BLOOD COUNT 3.31 Mil/cmm (4.30-5.70); RED CELL DISTRIBUTION WIDTH 16.3 % (11.5-20.0)
[2017-06-20 06:23] LABS: WHITE BLOOD COUNT 3.1 Th/cmm (4.8-10.8)
[2017-06-20 06:32] LABS: BAND NEUTROPHILE 6 % (0-10); LYMPHOCYTE 5 % (20-50); MONOCYTE 1 % (2-10); NEUTROPHILS 88 % (40-80); TOTAL CELLS COUNTED 100
[2017-06-20 06:33] LABS: PLATELET ESTIMATE DECREASED PLATELETS (NORMAL)
[2017-06-20] MEDS: Lactulose 10 Gm/15 mL 30mL UDC PO SCH ×2 (09:12→17:00)
[2017-06-20] MEDS: Multivitamin Tab GT SCH (09:13)
[2017-06-20] MEDS: Venelex 60gm Tube TP SCH (09:13)
[2017-06-20] MEDS: D5-0.45NS 1,000 ML IV SCH (09:14)
--- NOTE | 2017-06-20 13:33 | Internal Medicine Prog Note ---
Internal Medicine Subjective - Subjective Service Date: 06/20/17 Patient is:: awake, non-verbal, non-interactive, in bed Patient Complaints of:: congestion Per staff patient has:: no adverse event, tolerating meds Internal Medicine Objective - Results Result Diagrams: 06/20/17 05:30 06/20/17 05:30 Recent Labs: Laboratory Last Values WBC 3.1 Th/cmm (4.8-10.8) L D 06/20/17 05:30 RBC 3.31 Mil/cmm (4.30-5.70) L 06/20/17 05:30 Hgb 10.1 gm/dL (12-16) L 06/20/17 05:30 Hct 30.2 % (41.0-60) L 06/20/17 05:30 MCV 91.1 fl (80-99) 06/20/17 05:30 MCH 30.6 pg (26.0-30.0) H 06/20/17 05:30 MCHC Differential 33.6 pg (28.0-36.0) 06/20/17 05:30 RDW 16.3 % (11.5-20.0) 06/20/17 05:30 Plt Count 94 Th/cmm (150-400) L 06/20/17 05:30 MPV 7.0 fl 06/20/17 05:30 Neutrophils % 89.7 % (40.0-80.0) H 06/05/17 05:48 Band Neutrophils % 6 % (0-10) 06/20/17 05:30 Lymphocytes % 6.6 % (20.0-50.0) L 06/05/17 05:48 Monocytes % 3.6 % (2.0-10.0) 06/05/17 05:48 Eosinophils % 0.1 % (0.0-5.0) 06/05/17 05:48 Basophils % 0.0 % (0.0-2.0) 06/05/17 05:48 Neutrophils (Manual) 88 % (40-80) H 06/20/17 05:30 Lymphocytes 5 % (20-50) L 06/20/17 05:30 Monocytes 1 % (2-10) L 06/20/17 05:30 Eosinophils 1 % (0-5) 06/16/17 04:25 Hypochromia 1+ 01/21/18 04:20 Platelet Estimate DECREASED PLATELETS (NORMAL) 06/20/17 05:30 Anisocytosis 1+ 06/16/17 04:25 PT 11.3 SECONDS (9.5-11.5) 06/11/17 06:10 INR 1.09 (0.5-1.4) 06/11/17 06:10 PTT (Actin FS) 23.1 SECONDS (26.0-38.0) L 06/11/17 06:10 Specimen Source Arterial 06/17/17 16:16 Sample Site Right Radial 06/17/17 16:16 pH 7.53 (7.35-7.45) H 06/17/17 16:16 pCO2 37.0 mmHg (35.0-45.0) 06/17/17 16:16 pO2 70.0 mmHg (80.0-100.0) L 06/17/17 16:16 HCO3 31.0 mEq/L (20.0-26.0) H 06/17/17 16:16 Base Excess 7.8 mEq/L (-3.0-3.0) H 06/17/17 16:16 O2 Saturation 96.0 % (92.0-100.0) 06/17/17 16:16 Endy Test YES 06/17/17 16:16 Vent Rate NA 06/17/17 16:16 Inspired O2 40 06/17/17 16:16 Tidal Volume NA 06/17/17 16:16 PEEP NA 06/17/17 16:16 Pressure (ins/psv/peep) NA 06/17/17 16:16 Critical Value SH 06/17/17 16:16 Sodium 138 mEq/L (136-145) 06/20/17 05:30 Potassium 3.1 mEq/L (3.5-5.1) L 06/20/17 05:30 Chloride 106 mEq/L (98-107) 06/20/17 05:30 Carbon Dioxide 27.9 mEq/L (21.0-31.0) 06/20/17 05:30 Anion Gap 7.2 (7.0-16.0) 06/20/17 05:30 BUN 14 mg/dL (7-25) 06/20/17 05:30 Creatinine 0.2 mg/dL (0.7-1.3) L 06/20/17 05:30 Est GFR ( Amer) > 60.0 ml/min (>90) 06/20/17 05:30 Est GFR (Non-Af Amer) > 60.0 ml/min 06/20/17 05:30 BUN/Creatinine Ratio 70.0 06/20/17 05:30 Glucose 167 mg/dL (70-105) H 06/20/17 05:30 POC Glucose 124 MG/DL (70 - 105) H 06/14/17 05:50 Hemoglobin A1c % 5.1 % (4.0-6.0) 06/01/17 05:30 Whole Bld Lactic Acid 3.45 mmol/L (0.60-1.99) H* 06/03/17 06:45 Calcium 7.5 mg/dL (8.6-10.3) L 06/20/17 05:30 Magnesium 2.1 mg/dL (1.9-2.7) 06/07/17 06:30 Total Bilirubin 0.8 mg/dL (0.3-1.0) 06/15/17 06:00 AST 45 U/L (13-39) H 06/15/17 06:00 ALT 98 U/L (7-52) H 06/15/17 06:00 Alkaline Phosphatase 61 U/L (34-104) 06/15/17 06:00 Ammonia 64 umol/L (16-53) H 06/04/17 06:45 B-Natriuretic Peptide 129.0 pg/mL (5.0-100.0) H 06/04/17 06:45 Total Protein 4.3 gm/dL (6.0-8.3) L 06/15/17 06:00 Albumin 2.1 gm/dL (4.2-5.5) L 06/15/17 06:00 Globulin 2.2 gm/dL 06/15/17 06:00 Albumin/Globulin Ratio 1.0 (1.0-1.8) 06/15/17 06:00 TSH 0.72 uIU/ml (0.34-5.60) 06/01/17 05:30 Urine Source CATH 05/31/17 12:35 Urine Color YELLOW 05/31/17 12:35 Urine Clarity CLOUDY (CLEAR) 05/31/17 12:35 Urine pH 8.5 (4.6 - 8.0) 05/31/17 12:35 Ur Specific [place] 1.010 (1.005-1.030) 05/31/17 12:35 Urine Protein 30 mg/dL (NEGATIVE) H 05/31/17 12:35 Urine Glucose (UA) NEGATIVE mg/dL (NEGATIVE) 05/31/17 12:35 Urine Ketones NEGATIVE mg/dL (NEGATIVE) 05/31/17 12:35 Urine Blood MODERATE (NEGATIVE) H 05/31/17 12:35 Urine Nitrate NEGATIVE (NEGATIVE) 05/31/17 12:35 Urine Bilirubin NEGATIVE (NEGATIVE) 05/31/17 12:35 Urine Urobilinogen 0.2 E.U./dL (0.2 - 1.0) 05/31/17 12:35 Ur Leukocyte Esterase NEGATIVE (NEGATIVE) 05/31/17 12:35 Urine RBC >100 /hpf (0-5) H 05/31/17 12:35 Urine WBC 2-5 /hpf (0-5) H 05/31/17 12:35 Ur Epithelial Cells NONE SEEN /lpf (FEW) 05/31/17 12:35 Urine Bacteria NONE SEEN /hpf (NONE SEEN) 05/31/17 12:35 Stool Occult Blood NEGATIVE (NEGATIVE) 06/05/17 06:00 Gentamicin Peak 13.8 ug/ml (4.0-8.0) H 06/11/17 11:05 Gentamicin Trough 0.8 ug/ml (0.2-2.0) 06/11/17 08:00 Vancomycin Trough 10.7 ug/mL (10-20) 06/04/17 09:00 Hepatitis A IgM Ab Negative (Negative) 06/10/17 06:20 Hep Bs Antigen Negative (Negative) 06/10/17 06:20 Hep B Core IgM Ab Negative (Negative) 06/10/17 06:20 Hepatitis C Antibody 6.9 s/co ratio (0.0-0.9) H 06/10/17 06:20 Influenza A (Rapid) NEG FOR INF A 06/05/17 08:00 Influenza B (Rapid) NEG FOR INF B 06/05/17 08:00 Blood Type O POSITIVE 06/02/17 11:40 Antibody Screen NEGATIVE 06/02/17 11:40 Crossmatch See Detail 06/02/17 11:40 - Physical Exam Vitals and I&O: Vital Signs Temp 97.1 F 06/20/17 12:00 Pulse 154 06/20/17 12:36 Resp 18 06/20/17 12:00 BP 101/58 06/20/17 12:00 Pulse Ox 99 06/20/17 12:00 Intake & Output 06/19/17 06/20/17 06/20/17 18:59 06:59 18:59 Intake Total 300 966.667 Output Total 1300 500 Balance -1000 -500 966.667 Weight (lbs) 165 lb 157 lb 14.4 oz Intake: Intake, IV Amount 966.667 D5-0.45NS 1,000 ml @ 50 966.667 mls/hr IV .Q20H [facility] Rx#: [id number] Tube Feeding 300 Output: Gastric Drainage 150 Urine 1150 500 Other: # Bowel Movements 3 Stool Characteristics Liquid Liquid Liquid Brown Brown Active Medications: Current Medications Acetaminophen (Tylenol 650mg Supp) 650 mg RC Q4HR PRN PRN Reason: FEVER >100.1 Stop: 07/30/17 13:39 Acetaminophen (Tylenol) 325 mg PO Q6H PRN PRN Reason: PAIN/FEVER Stop: 07/30/17 16:47 Last Admin: 06/19/17 04:20 Dose: 325 mg Acetylcysteine (Mucomyst 10%) 6 ml HHN Q4HRT [facility] Stop: 08/08/17 14:59 Last Admin: 06/20/17 11:05 Dose: 6 ml Albuterol Sulfate (Albuterol 2.5mg/3ml Neb Ud) 1.25 mg HHN Q4HRT [facility] Stop: 08/06/17 18:59 Last Admin: 06/20/17 11:02 Dose: 1.25 mg Ascorbic Acid (Vitamin C) 500 mg GT DAILY [facility] Stop: 07/31/17 08:59 Last Admin: 06/20/17 09:13 Dose: 500 mg Bisacodyl (Dulcolax 10 Mg Supp) 10 mg RC Q72HR PRN PRN Reason: Constipation Stop: 07/30/17 13:39 [place] Oil/Mauritian Balsam/Trypsin (Venelex) 1 appl TP DAILY [facility] Stop: 08/15/17 08:59 Last Admin: 06/20/17 09:13 Dose: 1 appl Cholecalciferol (Vitamin D3) 500 iu PO DAILY [facility] Stop: 07/31/17 08:59 Last Admin: 06/20/17 09:12 Dose: 500 iu Diltiazem HCl (Cardizem) 5 mg IVP Q4H PRN PRN Reason: IF HR >120 Stop: 08/10/17 00:44 Last Admin: 06/20/17 12:36 Dose: 5 mg Famotidine (Pepcid) 20 mg IVP Q12H [facility] Stop: 07/31/17 12:44 Last Admin: 06/20/17 12:36 Dose: 20 mg Guaifenesin (Robitussin) 200 mg PO Q4HR PRN PRN Reason: Cough or Congestion Stop: 07/30/17 13:41 Last Admin: 06/10/17 20:59 Dose: 200 mg Norepinephrine Bitartrate 4 mg (/ Dextrose) 254 mls @ 30.48 mls/hr IV TITR PRN ; Protocol; 8 MCG/MIN PRN Reason: BP MAINTENANCE (PER PROTOCOL) Stop: 07/31/17 16:46 Last Titration: 06/03/17 00:00 Dose: 0 mcg/min, 0 mls/hr Dextrose/Sodium Chloride (D5-0.45ns) 1,000 mls @ 50 mls/hr IV .Q20H [facility] Stop: 08/14/17 08:38 Last Admin: 06/20/17 09:14 Dose: 50 mls/hr Ipratropium [place] (Atrovent Neb 0.5mg/2.5ml) 0.5 mg HHN Q4HRT [facility] Stop: 08/06/17 18:59 Last Admin: 06/20/17 11:02 Dose: 0.5 mg Lactulose (Cephulac) 30 gm PO BID [facility] Stop: 08/03/17 16:59 Last Admin: 06/20/17 09:12 Dose: 30 gm Lorazepam (Ativan) 0.5 mg IVP Q8HR PRN; Protocol PRN Reason: Agitation Stop: 08/14/17 14:52 Last Admin: 06/16/17 00:52 Dose: 0.5 mg Methylprednisolone Sodium Succinate (Solu-Medrol) 40 mg IVP Q8HR [facility] Stop: 07/30/17 20:59 Last Admin: 06/20/17 04:13 Dose: 40 mg Metoclopramide HCl (Reglan) 5 mg IVP Q8HR [facility] Stop: 08/16/17 12:59 Last Admin: 06/20/17 12:24 Dose: Not Given Metoclopramide HCl (Reglan) 5 mg PO TID [facility] Stop: 08/16/17 13:59 Last Admin: 06/20/17 09:12 Dose: 5 mg Midodrine (Proamatine) 5 mg PO TID [facility] Stop: 08/10/17 20:59 Last Admin: 06/20/17 09:12 Dose: 5 mg Miscellaneous (Vte Chemical Prophylaxis Screen/ Admission) 1 ea PRN PRN PRN Reason: PROTOCOL Stop: 07/31/17 14:00 Miscellaneous (Probiotic Screen) 1 [facility] PRN PRN PRN Reason: PROTOCOL Stop: 07/31/17 16:02 Morphine Sulfate (Morphine) 2 mg IVP Q4HR PRN PRN Reason: Pain (Moderate) Stop: 08/13/17 10:37 Last Admin: 06/20/17 02:50 Dose: 2 mg Multivitamins/Vitamin C (Theragran) 1 tab GT DAILY [facility] Stop: 07/31/17 08:59 Last Admin: 06/20/17 09:13 Dose: 1 tab Ondansetron HCl (Zofran) 4 mg IV Q8H PRN PRN Reason: Nausea / Vomiting Stop: 07/30/17 13:41 Sodium Phosphate (Fleet Enema) 133 ml RC DAILY PRN PRN Reason: Constipation Stop: 07/30/17 13:39 General: weak, congested HEENT: NC/AT, PERRLA Neck: No LAD, deformity Lungs: congested, rales, ronchi Cardiovascular: RRR, Normal S1, Normal S2, without murmur Abdomen: soft, non-tender, non-distended, +GT, positive bowel sound Extremities: excoriation, ecchymosis, contracture, deformity, atrophy Neurological: unable to follow command - Procedures Procedures: Procedures Procedure Code Date INSERT EMERGENCY AIRWAY 01071 05/31/17 INSERTION OF ENDOTRACHEAL AIRWAY INTO [place], VIA OPENING [id number] 05/31/17 RESPIRATORY VENTILATION, GREATER THAN 96 CONSECUTIVE HOURS [id number] 05/31/17 VENT MGMT INPAT IN DAY 22512 05/31/17 Internal Medicine Assmt/Plan - Assessment Assessment: S/p cardiopulmonary arrest s/p extubation Multilobar PNA lactic acidosis Acute Respiratory Failure Sepsis PNA leukocytosis hypokalemia acute renal insufficiency spastic quadriplegia seizures s/p colostomy s/p wound debridement DNR STATUS - Plan Plan: family service caseworker arranging placement suction patient has needed aspiration precautions inhalation treatments empiric ivantibiotics pulmo follow up continue current plan of care Nutritional Asmnt/Malnutr-PDOC - Dietary Evaluation Malnutrition Findings (Please click <Entered> for more info): Nutritional Asmnt/Malnutrition Start: 06/01/17 17: 31 Text: Status: Complete Freq: Document 06/01/17 17:31 LCHENG (Rec: 06/01/17 17:45 LCHENG [id number]) Nutritional Asmnt/Malnutrition Patient General Information Nutritional Screening High Risk Consult Diagnosis renal failure, prespiratory failure r/o PNA Pertinent Medical Hx/Surgical Hx dementia, MR anemia, spastic quadriplegia, cerebral palsy, seizure, aspiration PNA, s/p respiratory failure, spsis, hyponatremia, gastroenteritis, PEG Subjective Information Consult received for Anibal 13 and pressure ulcer. Pt seen resting in bed at the time of visit, intubated, non-verbal noted. TF not running at this time. Current Diet Order/ Nutrition Support Isosource 1.5 87ml/hr x 17hr Pertinent Medications vitamin C, vitamin D3, D5w, teragran, piperacillin, miralax, cancomycin Pertinent Labs 06/01 na 160, Cl 120, K 4.1, BUN 29, Cr 0.3, Glucose 242, A1c 5.1, Ca 8.4, Mg 2.8 Nutritional Hx/Data Height 5 ft 6 in Height (Calculated Centimeters) 167.6 Current Weight (lbs) 105 lb 8 oz Weight (Calculated Kilograms) 47.9 Weight (Calculated Grams) 48088.0 [place] Body Weight 142 % [place] Body Weight 94 Body Mass Index (BMI) 17.0 Weight Status Underweight GI Symptoms GI Symptoms None Last BM none Difficult in: None Usual diet at home Jevity 1.5 87ml/hr x 17hr Skin Integrity/Comment: decubitus ulceration to sacrum Estimated Nutritional Goals Calories/Kcals/Kg 25-30 Kcals Calculated [id number] based on IBW 65kg Protein g/k.2-1.4 Protein Calculated 78-91 consider respiratory failure and skin probelm Nutritional Problem 1. Problem Problem excessive intake from enteral feeding Etiology current TF regimen providing excessive calorie and protein than estimated nutritional needs Signs/Symptoms: current TF providing 114% of calorie needs and 110% of protein needs Malnutrition Alert Protein-Calorie Malnutrition N/A Is there a minimum of two criteria No selected? Query Text:Check all the applicable criteria. A minimum of two criteria are recommended for diagnosis of either severe or non-severe malnutrition. Intervention/Recommendation Comments 1. Recommend modify TF rate to 70ml/hr x 17hr to meet 100% of nutritional needs and avoid overfeeding. 2. Monitor TF rate, tolerance, wt weekly, skin integrity and labs 3. F/U as moderate risk in 3-5 days, 04/25-04/27 Expected Outcomes/Goals Expected Outcomes/Goals 1. Pt to meet 75-100% of nutritional needs via nutrition support with tolerance 2. 2. Wt stability, skin to remain intact, labs to approach WNL.
[2017-06-20] MEDS ORDERED: Potassium Chloride 20 mEq ER Tab PO ONE (16:00)
[2017-06-20] MEDS ORDERED: Potassium Chloride Elixir 20 mEq /15 mL UDC GT ONE (17:03)
[2017-06-20] MEDS: Diltiazem 30 mg Tab PO SCH (18:00)
[2017-06-21] MEDS: Albuterol Nebulizer 2.5mg/3mL HHN SCH ×6 (02:39→23:19)
[2017-06-21] MEDS: Ipratropium Neb 0.5 mg/2.5 mL UD HHN SCH ×6 (02:39→23:18)
[2017-06-21] MEDS: Acetylcysteine 10% 10 ML VIAL HHN SCH ×6 (02:40→23:19)
[2017-06-21 05:54] LABS: HEMATOCRIT 30.8 % (41.0-60); HEMOGLOBIN 10.5 gm/dL (12-16); MEAN CELL VOLUME 90.8 fl (80-99); MEAN CORPUSCULAR HEMOGLOBIN 31.1 pg (26.0-30.0); MEAN CORPUSCULAR HGB CONC 34.2 pg (28.0-36.0); MEAN PLATELET VOLUME 7.4 fl; PLATELET COUNT 84 Th/cmm (150-400); RED BLOOD COUNT 3.39 Mil/cmm (4.30-5.70); RED CELL DISTRIBUTION WIDTH 17.2 % (11.5-20.0)
[2017-06-21] MEDS: D5-0.45NS 1,000 ML IV SCH ×2 (06:08→23:55)
[2017-06-21] MEDS: Diltiazem 30 mg Tab PO SCH ×4 (06:08→23:55)
[2017-06-21 06:13] LABS: BUN - UREA NITROGEN 14 mg/dL (7-25); CARBON DIOXIDE 26.8 mEq/L (21.0-31.0); CHLORIDE 105 mEq/L (98-107); CREATININE - SERUM 0.2 mg/dL (0.7-1.3); GFR AFRICAN-AMERICAN > 60.0 ml/min (>90); GFR NON AFRICAN-AMERICAN > 60.0 ml/min; GLUCOSE 163 mg/dL (70-105); POTASSIUM SERUM 4.8 mEq/L (3.5-5.1); SODIUM SERUM 136 mEq/L (136-145)
[2017-06-21 06:30] LABS: WHITE BLOOD COUNT 3.7 Th/cmm (4.8-10.8)
[2017-06-21 07:29] LABS: BAND NEUTROPHILE 18 % (0-10); LYMPHOCYTE 3 % (20-50); MONOCYTE 4 % (2-10); NEUTROPHILS 75 % (40-80); PLATELET ESTIMATE DECREASED PLATELETS (NORMAL); TOTAL CELLS COUNTED 100
[2017-06-21] MEDS: methylPREDNISolone SS 40 mg Vial IVP SCH ×2 (08:21→21:12)
[2017-06-21] MEDS: Multivitamin Tab GT SCH (08:22)
[2017-06-21] MEDS: Lactulose 10 Gm/15 mL 30mL UDC PO SCH ×2 (08:22→17:32)
--- NOTE | 2017-06-21 08:34 | Diagnostic Imaging Report ---
Exam: Portable chest x-ray HISTORY: Pain pneumonia Findings: Portable examination of the chest upright at 0 756 reviewed. The study compared to prior exam of 06/16/2017 demonstrates a right basilar infiltrate and effusion unchanged upper approximation. The patient has been extubated. Atelectatic changes in left base appreciated. Bony thorax intact. Mediastinal structures midline. IMPRESSION 1. Status post extubation 2. Right basilar infiltrate and effusion. 3. Left basilar atelectasis.
[2017-06-21] MEDS: Morphine Sulfate 2 mg/mL 1mL Syr IVP PRN (13:39)
--- NOTE | 2017-06-21 15:00 | Internal Medicine Prog Note ---
Internal Medicine Subjective - Subjective Service Date: 06/21/17 Patient seen and examined:: with staff Patient is:: awake, non-verbal, non-interactive, in bed Patient Complaints of:: congestion Per staff patient has:: no adverse event, tolerating meds Internal Medicine Objective - Results Result Diagrams: 06/21/17 05:40 06/21/17 05:40 Recent Labs: Laboratory Last Values WBC 3.7 Th/cmm (4.8-10.8) L 06/21/17 05:40 RBC 3.39 Mil/cmm (4.30-5.70) L 06/21/17 05:40 Hgb 10.5 gm/dL (12-16) L 06/21/17 05:40 Hct 30.8 % (41.0-60) L 06/21/17 05:40 MCV 90.8 fl (80-99) 06/21/17 05:40 MCH 31.1 pg (26.0-30.0) H 06/21/17 05:40 MCHC Differential 34.2 pg (28.0-36.0) 06/21/17 05:40 RDW 17.2 % (11.5-20.0) 06/21/17 05:40 Plt Count 84 Th/cmm (150-400) L 06/21/17 05:40 MPV 7.4 fl 06/21/17 05:40 Neutrophils % 89.7 % (40.0-80.0) H 06/05/17 05:48 Band Neutrophils % 18 % (0-10) H 06/21/17 05:40 Lymphocytes % 6.6 % (20.0-50.0) L 06/05/17 05:48 Monocytes % 3.6 % (2.0-10.0) 06/05/17 05:48 Eosinophils % 0.1 % (0.0-5.0) 06/05/17 05:48 Basophils % 0.0 % (0.0-2.0) 06/05/17 05:48 Neutrophils (Manual) 75 % (40-80) 06/21/17 05:40 Lymphocytes 3 % (20-50) L 06/21/17 05:40 Monocytes 4 % (2-10) 06/21/17 05:40 Eosinophils 1 % (0-5) 06/16/17 04:25 Hypochromia 1+ 06/17/17 04:20 Platelet Estimate DECREASED PLATELETS (NORMAL) 06/21/17 05:40 Anisocytosis 1+ 06/16/17 04:25 PT 11.3 SECONDS (9.5-11.5) 06/11/17 06:10 INR 1.09 (0.5-1.4) 06/11/17 06:10 PTT (Actin FS) 23.1 SECONDS (26.0-38.0) L 06/11/17 06:10 Specimen Source Arterial 06/17/17 16:16 Sample Site Right Radial 06/17/17 16:16 pH 7.53 (7.35-7.45) H 06/17/17 16:16 pCO2 37.0 mmHg (35.0-45.0) 06/17/17 16:16 pO2 70.0 mmHg (80.0-100.0) L 06/17/17 16:16 HCO3 31.0 mEq/L (20.0-26.0) H 06/17/17 16:16 Base Excess 7.8 mEq/L (-3.0-3.0) H 06/17/17 16:16 O2 Saturation 96.0 % (92.0-100.0) 06/17/17 16:16 Endy Test YES 06/17/17 16:16 Vent Rate NA 06/17/17 16:16 Inspired O2 40 06/17/17 16:16 Tidal Volume NA 06/17/17 16:16 PEEP NA 06/17/17 16:16 Pressure (ins/psv/peep) NA 06/17/17 16:16 Critical Value SH 06/17/17 16:16 Sodium 136 mEq/L (136-145) 06/21/17 05:40 Potassium 4.8 mEq/L (3.5-5.1) 06/21/17 05:40 Chloride 105 mEq/L (98-107) 06/21/17 05:40 Carbon Dioxide 26.8 mEq/L (21.0-31.0) 06/21/17 05:40 Anion Gap 9.0 (7.0-16.0) 06/21/17 05:40 BUN 14 mg/dL (7-25) 06/21/17 05:40 Creatinine 0.2 mg/dL (0.7-1.3) L 06/21/17 05:40 Est GFR ( Amer) > 60.0 ml/min (>90) 06/21/17 05:40 Est GFR (Non-Af Amer) > 60.0 ml/min 06/21/17 05:40 BUN/Creatinine Ratio 70.0 06/21/17 05:40 Glucose 163 mg/dL (70-105) H 06/21/17 05:40 POC Glucose 124 MG/DL (70 - 105) H 06/14/17 05:50 Hemoglobin A1c % 5.1 % (4.0-6.0) 06/01/17 05:30 Whole Bld Lactic Acid 3.45 mmol/L (0.60-1.99) H* 06/03/17 06:45 Calcium 8.0 mg/dL (8.6-10.3) L 06/21/17 05:40 Magnesium 2.1 mg/dL (1.9-2.7) 06/07/17 06:30 Total Bilirubin 0.8 mg/dL (0.3-1.0) 06/15/17 06:00 AST 45 U/L (13-39) H 06/15/17 06:00 ALT 98 U/L (7-52) H 06/15/17 06:00 Alkaline Phosphatase 61 U/L (34-104) 06/15/17 06:00 Ammonia 54 umol/L (16-53) H 06/20/17 18:05 B-Natriuretic Peptide 129.0 pg/mL (5.0-100.0) H 06/04/17 06:45 Total Protein 4.3 gm/dL (6.0-8.3) L 06/15/17 06:00 Albumin 2.1 gm/dL (4.2-5.5) L 06/15/17 06:00 Globulin 2.2 gm/dL 06/15/17 06:00 Albumin/Globulin Ratio 1.0 (1.0-1.8) 06/15/17 06:00 TSH 0.72 uIU/ml (0.34-5.60) 06/01/17 05:30 Urine Source CATH 05/31/17 12:35 Urine Color YELLOW 05/31/17 12:35 Urine Clarity CLOUDY (CLEAR) 05/31/17 12:35 Urine pH 8.5 (4.6 - 8.0) 05/31/17 12:35 Ur Specific [place] 1.010 (1.005-1.030) 05/31/17 12:35 Urine Protein 30 mg/dL (NEGATIVE) H 05/31/17 12:35 Urine Glucose (UA) NEGATIVE mg/dL (NEGATIVE) 05/31/17 12:35 Urine Ketones NEGATIVE mg/dL (NEGATIVE) 05/31/17 12:35 Urine Blood MODERATE (NEGATIVE) H 05/31/17 12:35 Urine Nitrate NEGATIVE (NEGATIVE) 05/31/17 12:35 Urine Bilirubin NEGATIVE (NEGATIVE) 05/31/17 12:35 Urine Urobilinogen 0.2 E.U./dL (0.2 - 1.0) 05/31/17 12:35 Ur Leukocyte Esterase NEGATIVE (NEGATIVE) 05/31/17 12:35 Urine RBC >100 /hpf (0-5) H 05/31/17 12:35 Urine WBC 2-5 /hpf (0-5) H 05/31/17 12:35 Ur Epithelial Cells NONE SEEN /lpf (FEW) 05/31/17 12:35 Urine Bacteria NONE SEEN /hpf (NONE SEEN) 05/31/17 12:35 Stool Occult Blood NEGATIVE (NEGATIVE) 06/05/17 06:00 Gentamicin Peak 13.8 ug/ml (4.0-8.0) H 06/11/17 11:05 Gentamicin Trough 0.8 ug/ml (0.2-2.0) 06/11/17 08:00 Vancomycin Trough 10.7 ug/mL (10-20) 06/04/17 09:00 Hepatitis A IgM Ab Negative (Negative) 06/10/17 06:20 Hep Bs Antigen Negative (Negative) 06/10/17 06:20 Hep B Core IgM Ab Negative (Negative) 06/10/17 06:20 Hepatitis C Antibody 6.9 s/co ratio (0.0-0.9) H 06/10/17 06:20 Influenza A (Rapid) NEG FOR INF A 06/05/17 08:00 Influenza B (Rapid) NEG FOR INF B 06/05/17 08:00 Blood Type O POSITIVE 06/02/17 11:40 Antibody Screen NEGATIVE 06/02/17 11:40 Crossmatch See Detail 06/02/17 11:40 - Physical Exam Vitals and I&O: Vital Signs Temp 98.3 F 06/21/17 12:00 Pulse 116 06/21/17 12:50 Resp 18 06/21/17 12:00 BP 99/58 06/21/17 12:00 Pulse Ox 98 06/21/17 12:00 Intake & Output 06/20/17 06/21/17 06/21/17 18:59 06:59 18:59 Intake Total 073.439 0621 Balance 783.816 8381 Weight (lbs) 160 lb 1.6 oz Intake: Intake, IV Amount 152.398 1104 D5-0.45NS 1,000 ml @ 50 907.944 9382 mls/hr IV .Q20H [facility] Rx#: [id number] Tube Feeding 500 Other 120 Other: # Voids 750 Stool Characteristics Liquid Brown Active Medications: Current Medications Acetaminophen (Tylenol 650mg Supp) 650 mg RC Q4HR PRN PRN Reason: FEVER >100.1 Stop: 07/30/17 13:39 Acetaminophen (Tylenol) 325 mg PO Q6H PRN PRN Reason: PAIN/FEVER Stop: 07/30/17 16:47 Last Admin: 06/19/17 04:20 Dose: 325 mg Acetylcysteine (Mucomyst 10%) 6 ml HHN Q4HRT [facility] Stop: 08/08/17 14:59 Last Admin: 06/21/17 10:55 Dose: 6 ml Albuterol Sulfate (Albuterol 2.5mg/3ml Neb Ud) 1.25 mg HHN Q4HRT [facility] Stop: 08/06/17 18:59 Last Admin: 06/21/17 10:55 Dose: 1.25 mg Ascorbic Acid (Vitamin C) 500 mg GT DAILY [facility] Stop: 07/31/17 08:59 Last Admin: 06/21/17 08:22 Dose: 500 mg Bisacodyl (Dulcolax 10 Mg Supp) 10 mg RC Q72HR PRN PRN Reason: Constipation Stop: 07/30/17 13:39 [place] Oil/Kazakh Balsam/Trypsin (Venelex) 1 appl TP DAILY [facility] Stop: 08/15/17 08:59 Last Admin: 06/20/17 09:13 Dose: 1 appl Cholecalciferol (Vitamin D3) 500 iu PO DAILY [facility] Stop: 07/31/17 08:59 Last Admin: 06/21/17 08:22 Dose: 500 iu Diltiazem HCl (Cardizem) 20 mg IVP Q4H PRN PRN Reason: HR Greater than 130 per min Stop: 08/19/17 17:40 Diltiazem HCl (Cardizem) 60 mg PO Q6HR FERNANDO Stop: 08/19/17 17:59 Last Admin: 06/21/17 12:50 Dose: 60 mg Famotidine (Pepcid) 20 mg PO BID FERNANDO Stop: 08/19/17 16:59 Last Admin: 06/21/17 08:22 Dose: 20 mg Guaifenesin (Robitussin) 200 mg PO Q4HR PRN PRN Reason: Cough or Congestion Stop: 07/30/17 13:41 Last Admin: 06/10/17 20:59 Dose: 200 mg Norepinephrine Bitartrate 4 mg (/ Dextrose) 254 mls @ 30.48 mls/hr IV TITR PRN ; Protocol; 8 MCG/MIN PRN Reason: BP MAINTENANCE (PER PROTOCOL) Stop: 07/31/17 16:46 Last Titration: 06/03/17 00:00 Dose: 0 mcg/min, 0 mls/hr Dextrose/Sodium Chloride (D5-0.45ns) 1,000 mls @ 50 mls/hr IV .Q20H [facility] Stop: 08/14/17 08:38 Last Admin: 06/21/17 06:08 Dose: 50 mls/hr Ipratropium [place] (Atrovent Neb 0.5mg/2.5ml) 0.5 mg HHN Q4HRT FERNANDO Stop: 08/06/17 18:59 Last Admin: 06/21/17 10:55 Dose: 0.5 mg Lactulose (Cephulac) 30 gm PO BID FERNANDO Stop: 08/03/17 16:59 Last Admin: 06/21/17 08:22 Dose: 30 gm Lorazepam (Ativan) 0.5 mg IVP Q8HR PRN; Protocol PRN Reason: Agitation Stop: 08/14/17 14:52 Last Admin: 06/16/17 00:52 Dose: 0.5 mg Methylprednisolone Sodium Succinate (Solu-Medrol) 40 mg IVP Q12HR FERNANDO Stop: 08/19/17 20:59 Last Admin: 06/21/17 08:21 Dose: 40 mg Metoclopramide HCl (Reglan) 5 mg PO TID [facility] Stop: 08/16/17 13:59 Last Admin: 06/21/17 13:39 Dose: 5 mg Midodrine (Proamatine) 5 mg PO TID [facility] Stop: 08/10/17 20:59 Last Admin: 06/21/17 13:39 Dose: 5 mg Miscellaneous (Vte Chemical Prophylaxis Screen/ Admission) 1 ea PRN PRN PRN Reason: PROTOCOL Stop: 07/31/17 14:00 Miscellaneous (Probiotic Screen) 1 ea PRN PRN PRN Reason: PROTOCOL Stop: 07/31/17 16:02 Morphine Sulfate (Morphine) 2 mg IVP Q4HR PRN PRN Reason: Pain (Moderate) Stop: 08/13/17 10:37 Last Admin: 06/21/17 13:39 Dose: 2 mg Multivitamins/Vitamin C (Theragran) 1 tab GT DAILY [facility] Stop: 07/31/17 08:59 Last Admin: 06/21/17 08:22 Dose: 1 tab Ondansetron HCl (Zofran) 4 mg IV Q8H PRN PRN Reason: Nausea / Vomiting Stop: 07/30/17 13:41 Sodium Phosphate (Fleet Enema) 133 ml RC DAILY PRN PRN Reason: Constipation Stop: 07/30/17 13:39 General: weak, congested HEENT: NC/AT, PERRLA Neck: No LAD, deformity Lungs: congested, rales, ronchi Cardiovascular: RRR, Normal S1, Normal S2, without murmur Abdomen: soft, non-tender, non-distended, +GT, positive bowel sound Extremities: excoriation, ecchymosis, contracture, deformity, atrophy Neurological: unable to follow command - Procedures Procedures: Procedures Procedure Code Date INSERT EMERGENCY AIRWAY 32130 05/31/17 INSERTION OF ENDOTRACHEAL AIRWAY INTO TRACHEA, VIA OPENING [id number] 05/31/17 RESPIRATORY VENTILATION, GREATER THAN 96 CONSECUTIVE HOURS [id number] 05/31/17 VENT MGMT INPAT INIT DAY 73605 05/31/17 Internal Medicine Assmt/Plan - Assessment Assessment: S/p cardiopulmonary arrest s/p extubation Multilobar PNA lactic acidosis Acute Respiratory Failure Sepsis PNA leukocytosis hypokalemia acute renal insufficiency spastic quadriplegia seizures s/p colostomy s/p wound debridement DNR STATUS - Plan Plan: case repairer arranging placement suction patient has needed aspiration precautions inhalation treatments empiric ivantibiotics pulmo follow up continue current plan of care Nutritional Asmnt/Malnutr-PDOC - Dietary Evaluation Malnutrition Findings (Please click <Entered> for more info): Nutritional Asmnt/Malnutrition Start: 06/01/17 17: 31 Text: Status: Complete Freq: Document 06/01/17 17:31 [facility] (Rec: 06/01/17 17:45 HEN [id number]) Nutritional Asmnt/Malnutrition Patient General Information Nutritional Screening High Risk Consult Diagnosis renal failure, prespiratory failure r/o PNA Pertinent Medical Hx/Surgical Hx dementia, MR anemia, spastic quadriplegia, cerebral palsy, seizure, aspiration PNA, s/p respiratory failure, spsis, hyponatremia, gastroenteritis, PEG Subjective Information Consult received for Anibal 13 and pressure ulcer. Pt seen resting in bed at the time of visit, intubated, non-verbal noted. TF not running at this time. Current Diet Order/ Nutrition Support Isosource 1.5 87ml/hr x 17hr Pertinent Medications vitamin C, vitamin D3, D5w, teragran, piperacillin, miralax, cancomycin Pertinent Labs 1/ na 160, Cl 120, K 4.1, BUN 29, Cr 0.3, Glucose 242, A1c 5.1, Ca 8.4, Mg 2.8 Nutritional Hx/Data Height 5 ft 6 in Height (Calculated Centimeters) 167.6 Current Weight (lbs) 105 lb 8 oz Weight (Calculated Kilograms) 47.9 Weight (Calculated Grams) 49345.0 [place] Body Weight 142 % [place] Body Weight 94 Body Mass Index (BMI) 17.0 Weight Status Underweight GI Symptoms GI Symptoms None Last BM none Difficult in: None Usual diet at home Jevity 1.5 87ml/hr x 17hr Skin Integrity/Comment: decubitus ulceration to sacrum Estimated Nutritional Goals Calories/Kcals/Kg 25-30 Kcals Calculated [id number] based on IBW 65kg Protein g/k.2-1.4 Protein Calculated 78-91 consider respiratory failure and skin probelm Nutritional Problem 1. Problem Problem excessive intake from enteral feeding Etiology current TF regimen providing excessive calorie and protein than estimated nutritional needs Signs/Symptoms: current TF providing 114% of calorie needs and 110% of protein needs Malnutrition Alert Protein-Calorie Malnutrition N/A Is there a minimum of two criteria No selected? Query Text:Check all the applicable criteria. A minimum of two criteria are recommended for diagnosis of either severe or non-severe malnutrition. Intervention/Recommendation Comments 1. Recommend modify TF rate to 70ml/hr x 17hr to meet 100% of nutritional needs and avoid overfeeding. 2. Monitor TF rate, tolerance, wt weekly, skin integrity and labs 3. F/U as moderate risk in 3-5 days, 04/25-04/27 Expected Outcomes/Goals Expected Outcomes/Goals 1. Pt to meet 75-100% of nutritional needs via nutrition support with tolerance 2. 2. Wt stability, skin to remain intact, labs to approach WNL.
[2017-06-21] MEDS: Venelex 60gm Tube TP SCH (17:32)
--- NOTE | 2017-06-21 21:14 | Operative Report ---
DATE OF SURGERY: 06/14/2017 PREOPERATIVE DIAGNOSES: 1. Sacral decubitus ulcer. 2. Incontinence. 3. Cerebral palsy. 4. Respiratory failure, on vent. POSTOPERATIVE DIAGNOSES: 1. Sacral decubitus ulcer. 2. Incontinence. 3. Cerebral palsy. 4. Respiratory failure, on vent. OPERATION DONE: 1. Diverting colostomy. 2. Excisional debridement of stage III sacral decubitus ulcer. SURGEON: Guillermo Ng M.D. ANESTHESIA: General. ANESTHESIOLOGIST: Tanvir. ESTIMATED BLOOD LOSS: 30 mL. Informed consent discussed with the father and mother regarding the need for the diverting colostomy and the presence of sacral decubitus ulcer and incontinence. DESCRIPTION OF PROCEDURE: The patient was given general anesthesia. The abdomen was prepped with ChloraPrep and draped in appropriate manner. An incision was made in the lower midline below the umbilicus. Bleeders were electrocoagulated. Incision was carried all the way down to the peritoneal cavity. Retractor was applied. The colon was identified and a descending portion was transected with a BRIDGER instrument. The cut ends were sterilized with Betadine. The distal portion was left as a Obey's pouch and oversewn the staple line with 3-0 silk. The descending portion was brought out as a colostomy in the left lower quadrant of the abdomen. The colon in the abdominal cavity was sutured to the anterior abdominal wall utilizing 3-0 silk and this was run to close the mesentery against the abdominal wall to prevent internal herniation. The abdominal incision was closed with running suture of #1 PDS and the skin was closed with subcuticular suture of 4-0 Vicryl. Sterile dressing was placed over this. The colon was then transected and matured utilizing everting suture of 4-0 Vicryl. a colostomy bag was placed over this. The patient was placed in the left lateral decubitus position. The sacral ulcer was debrided sharply with scissors and knife, and the bleeding areas were electrocoagulated. Because of the small size of the ulcer, no wound VAC was applied. The patient tolerated the procedure well. [facility]# [id number]
[2017-06-22] MEDS: Albuterol Nebulizer 2.5mg/3mL HHN SCH ×6 (02:15→23:11)
[2017-06-22] MEDS: Acetylcysteine 10% 10 ML VIAL HHN SCH ×6 (02:15→23:11)
[2017-06-22] MEDS: Ipratropium Neb 0.5 mg/2.5 mL UD HHN SCH ×6 (02:16→23:11)
[2017-06-22] MEDS: Diltiazem 30 mg Tab PO SCH ×3 (05:38→18:17)
[2017-06-22 05:44] LABS: HEMOGLOBIN 8.7 gm/dL (12-16); LYMPHOCYTE ABSOLUTE 0.1 Th/cmm (1.5-3.0); MEAN CELL VOLUME 90.6 fl (80-99); MEAN CORPUSCULAR HEMOGLOBIN 30.3 pg (26.0-30.0); MEAN CORPUSCULAR HGB CONC 33.4 pg (28.0-36.0); MONOCYTE ABSOLUTE 0.1 Th/cmm (0.3-1.0); RED BLOOD COUNT 2.87 Mil/cmm (4.30-5.70); RED CELL DISTRIBUTION WIDTH 17.2 % (11.5-20.0)
[2017-06-22 05:52] LABS: ANION GAP 8.2 (7.0-16.0); BUN - UREA NITROGEN 15 mg/dL (7-25); CALCIUM SERUM 7.9 mg/dL (8.6-10.3); CARBON DIOXIDE 27.5 mEq/L (21.0-31.0); CHLORIDE 105 mEq/L (98-107); CREATININE - SERUM 0.2 mg/dL (0.7-1.3); GFR AFRICAN-AMERICAN > 60.0 ml/min (>90); GFR NON AFRICAN-AMERICAN > 60.0 ml/min; GLUCOSE 209 mg/dL (70-105); MAGNESIUM 1.7 mg/dL (1.9-2.7); POTASSIUM SERUM 3.7 mEq/L (3.5-5.1); SODIUM SERUM 137 mEq/L (136-145)
[2017-06-22 06:00] LABS: PLATELET COUNT 51 Th/cmm (150-400); WHITE BLOOD COUNT 2.2 Th/cmm (4.8-10.8)
[2017-06-22 06:09] LABS: BAND NEUTROPHILE 10 % (0-10); LYMPHOCYTE 4 % (20-50); NEUTROPHILS 86 % (40-80); PLATELET ESTIMATE SLIGHT DECREASED (NORMAL); TOTAL CELLS COUNTED 100
[2017-06-22] MEDS: Lactulose 10 Gm/15 mL 30mL UDC PO SCH ×2 (09:26→16:50)
[2017-06-22] MEDS: methylPREDNISolone SS 40 mg Vial IVP SCH ×2 (09:26→22:54)
[2017-06-22] MEDS: Venelex 60gm Tube TP SCH (09:28)
[2017-06-22] MEDS: Multivitamin Tab GT SCH (09:28)
--- NOTE | 2017-06-22 15:09 | Internal Medicine Prog Note ---
Internal Medicine Subjective - Subjective Patient seen and examined:: with staff, chart reviewed, other (father at bedside ) Patient is:: awake, non-verbal, non-interactive, in bed Patient Complaints of:: congestion Per staff patient has:: no adverse event, tolerating meds Internal Medicine Objective - Results Result Diagrams: 06/22/17 05:05 06/22/17 05:05 Recent Labs: Laboratory Last Values WBC 2.2 Th/cmm (4.8-10.8) L* D 06/22/17 05:05 RBC 2.87 Mil/cmm (4.30-5.70) L 06/22/17 05:05 Hgb 8.7 gm/dL (12-16) L 06/22/17 05:05 Hct 26.0 % (41.0-60) L D 06/22/17 05:05 MCV 90.6 fl (80-99) 06/22/17 05:05 MCH 30.3 pg (26.0-30.0) H 06/22/17 05:05 MCHC Differential 33.4 pg (28.0-36.0) 06/22/17 05:05 RDW 17.2 % (11.5-20.0) 06/22/17 05:05 Plt Count 51 Th/cmm (150-400) L D 06/22/17 05:05 MPV 7.0 fl 06/22/17 05:05 Neutrophils % 89.7 % (40.0-80.0) H 06/05/17 05:48 Band Neutrophils % 10 % (0-10) 06/22/17 05:05 Lymphocytes % 6.6 % (20.0-50.0) L 06/05/17 05:48 Monocytes % 3.6 % (2.0-10.0) 06/05/17 05:48 Eosinophils % 0.1 % (0.0-5.0) 06/05/17 05:48 Basophils % 0.0 % (0.0-2.0) 06/05/17 05:48 Neutrophils (Manual) 86 % (40-80) H 06/22/17 05:05 Lymphocytes 4 % (20-50) L 06/22/17 05:05 Monocytes 4 % (2-10) 06/21/17 05:40 Eosinophils 1 % (0-5) 06/16/17 04:25 Hypochromia 1+ 06/17/17 04:20 Platelet Estimate SLIGHT DECREASED (NORMAL) 06/22/17 05:05 Anisocytosis 1+ 06/16/17 04:25 PT 11.3 SECONDS (9.5-11.5) 06/11/17 06:10 INR 1.09 (0.5-1.4) 06/11/17 06:10 PTT (Actin FS) 23.1 SECONDS (26.0-38.0) L 06/11/17 06:10 Specimen Source Arterial 06/17/17 16:16 Sample Site Right Radial 06/17/17 16:16 pH 7.53 (7.35-7.45) H 06/17/17 16:16 pCO2 37.0 mmHg (35.0-45.0) 06/17/17 16:16 pO2 70.0 mmHg (80.0-100.0) L 06/17/17 16:16 HCO3 31.0 mEq/L (20.0-26.0) H 06/17/17 16:16 Base Excess 7.8 mEq/L (-3.0-3.0) H 06/17/17 16:16 O2 Saturation 96.0 % (92.0-100.0) 06/17/17 16:16 Endy Test YES 06/17/17 16:16 Vent Rate NA 06/17/17 16:16 Inspired O2 40 06/17/17 16:16 Tidal Volume NA 06/17/17 16:16 PEEP NA 06/17/17 16:16 Pressure (ins/psv/peep) NA 06/17/17 16:16 Critical Value SH 06/17/17 16:16 Sodium 137 mEq/L (136-145) 06/22/17 05:05 Potassium 3.7 mEq/L (3.5-5.1) 06/22/17 05:05 Chloride 105 mEq/L (98-107) 06/22/17 05:05 Carbon Dioxide 27.5 mEq/L (21.0-31.0) 06/22/17 05:05 Anion Gap 8.2 (7.0-16.0) 06/22/17 05:05 BUN 15 mg/dL (7-25) 06/22/17 05:05 Creatinine 0.2 mg/dL (0.7-1.3) L 06/22/17 05:05 Est GFR ( Amer) > 60.0 ml/min (>90) 06/22/17 05:05 Est GFR (Non-Af Amer) > 60.0 ml/min 06/22/17 05:05 BUN/Creatinine Ratio 75.0 06/22/17 05:05 Glucose 209 mg/dL (70-105) H 06/22/17 05:05 POC Glucose 124 MG/DL (70 - 105) H 06/14/17 05:50 Hemoglobin A1c % 5.1 % (4.0-6.0) 06/01/17 05:30 Whole Bld Lactic Acid 3.45 mmol/L (0.60-1.99) H* 06/03/17 06:45 Calcium 7.9 mg/dL (8.6-10.3) L 06/22/17 05:05 Magnesium 1.7 mg/dL (1.9-2.7) L 06/22/17 05:05 Total Bilirubin 0.8 mg/dL (0.3-1.0) 06/15/17 06:00 AST 45 U/L (13-39) H 06/15/17 06:00 ALT 98 U/L (7-52) H 06/15/17 06:00 Alkaline Phosphatase 61 U/L (34-104) 06/15/17 06:00 Ammonia 54 umol/L (16-53) H 06/20/17 18:05 B-Natriuretic Peptide 129.0 pg/mL (5.0-100.0) H 06/04/17 06:45 Total Protein 4.3 gm/dL (6.0-8.3) L 06/15/17 06:00 Albumin 2.1 gm/dL (4.2-5.5) L 06/15/17 06:00 Globulin 2.2 gm/dL 06/15/17 06:00 Albumin/Globulin Ratio 1.0 (1.0-1.8) 06/15/17 06:00 TSH 0.72 uIU/ml (0.34-5.60) 06/01/17 05:30 Urine Source CATH 05/31/17 12:35 Urine Color YELLOW 05/31/17 12:35 Urine Clarity CLOUDY (CLEAR) 05/31/17 12:35 Urine pH 8.5 (4.6 - 8.0) 05/31/17 12:35 Ur Specific [place] 1.010 (1.005-1.030) 05/31/17 12:35 Urine Protein 30 mg/dL (NEGATIVE) H 05/31/17 12:35 Urine Glucose (UA) NEGATIVE mg/dL (NEGATIVE) 05/31/17 12:35 Urine Ketones NEGATIVE mg/dL (NEGATIVE) 05/31/17 12:35 Urine Blood MODERATE (NEGATIVE) H 05/31/17 12:35 Urine Nitrate NEGATIVE (NEGATIVE) 05/31/17 12:35 Urine Bilirubin NEGATIVE (NEGATIVE) 05/31/17 12:35 Urine Urobilinogen 0.2 E.U./dL (0.2 - 1.0) 05/31/17 12:35 Ur Leukocyte Esterase NEGATIVE (NEGATIVE) 05/31/17 12:35 Urine RBC >100 /hpf (0-5) H 05/31/17 12:35 Urine WBC 2-5 /hpf (0-5) H 05/31/17 12:35 Ur Epithelial Cells NONE SEEN /lpf (FEW) 05/31/17 12:35 Urine Bacteria NONE SEEN /hpf (NONE SEEN) 05/31/17 12:35 Stool Occult Blood NEGATIVE (NEGATIVE) 06/05/17 06:00 Gentamicin Peak 13.8 ug/ml (4.0-8.0) H 06/11/17 11:05 Gentamicin Trough 0.8 ug/ml (0.2-2.0) 06/11/17 08:00 Vancomycin Trough 10.7 ug/mL (10-20) 06/04/17 09:00 Hepatitis A IgM Ab Negative (Negative) 06/10/17 06:20 Hep Bs Antigen Negative (Negative) 06/10/17 06:20 Hep B Core IgM Ab Negative (Negative) 06/10/17 06:20 Hepatitis C Antibody 6.9 s/co ratio (0.0-0.9) H 06/10/17 06:20 Influenza A (Rapid) NEG FOR INF A 06/05/17 08:00 Influenza B (Rapid) NEG FOR INF B 06/05/17 08:00 Blood Type O POSITIVE 06/02/17 11:40 Antibody Screen NEGATIVE 06/02/17 11:40 Crossmatch See Detail 06/02/17 11:40 - Physical Exam Vitals and I&O: Vital Signs Temp 98 F 06/22/17 04:00 Pulse 105 06/22/17 14:31 Resp 18 06/22/17 14:31 BP 105/55 06/22/17 04:00 Pulse Ox 96 06/22/17 14:31 Intake & Output 06/21/17 06/22/17 06/22/17 18:59 06:59 18:59 Intake Total 595 1509.167 Output Total 1250 Balance 595 259.167 Weight (lbs) 72.575 kg 71.668 kg Intake: Intake, IV Amount 889.167 D5-0.45NS 1,000 ml @ 50 889.167 mls/hr IV .Q20H [facility] Rx#: [id number] Tube Feeding 595 500 Other 120 Output: Urine 750 Stool 500 Other: Stool Characteristics Liquid Liquid Brown Brown Active Medications: Current Medications Acetaminophen (Tylenol 650mg Supp) 650 mg RC Q4HR PRN PRN Reason: FEVER >100.1 Stop: 07/30/17 13:39 Acetylcysteine (Mucomyst 10%) 6 ml HHN Q4HRT [facility] Stop: 08/08/17 14:59 Last Admin: 06/22/17 14:31 Dose: 6 ml Albuterol Sulfate (Albuterol 2.5mg/3ml Neb Ud) 1.25 mg HHN Q4HRT [facility] Stop: 08/06/17 18:59 Last Admin: 06/22/17 14:31 Dose: 1.25 mg Ascorbic Acid (Vitamin C) 500 mg GT DAILY [facility] Stop: 07/31/17 08:59 Last Admin: 06/22/17 09:26 Dose: 500 mg Bisacodyl (Dulcolax 10 Mg Supp) 10 mg RC Q72HR PRN PRN Reason: Constipation Stop: 07/30/17 13:39 [place] Oil/[place] Balsam/Trypsin (Venelex) 1 appl TP DAILY [facility] Stop: 08/15/17 08:59 Last Admin: 06/22/17 09:28 Dose: 1 appl Cholecalciferol (Vitamin D3) 500 iu PO DAILY [facility] Stop: 07/31/17 08:59 Last Admin: 06/22/17 09:27 Dose: 500 iu Diltiazem HCl (Cardizem) 20 mg IVP Q4H PRN PRN Reason: HR Greater than 130 per min Stop: 08/19/17 17:40 Diltiazem HCl (Cardizem) 60 mg PO Q6HR FERNANDO Stop: 08/19/17 17:59 Last Admin: 06/22/17 14:30 Dose: 60 mg Famotidine (Pepcid) 20 mg PO BID FERNANDO Stop: 08/19/17 16:59 Last Admin: 06/22/17 09:26 Dose: 20 mg Guaifenesin (Robitussin) 200 mg PO Q4HR PRN PRN Reason: Cough or Congestion Stop: 07/30/17 13:41 Last Admin: 06/10/17 20:59 Dose: 200 mg Norepinephrine Bitartrate 4 mg (/ Dextrose) 254 mls @ 30.48 mls/hr IV TITR PRN ; Protocol; 8 MCG/MIN PRN Reason: BP MAINTENANCE (PER PROTOCOL) Stop: 07/31/17 16:46 Last Titration: 06/03/17 00:00 Dose: 0 mcg/min, 0 mls/hr Dextrose/Sodium Chloride (D5-0.45ns) 1,000 mls @ 50 mls/hr IV .Q20H [facility] Stop: 08/14/17 08:38 Last Admin: 06/21/17 23:55 Dose: 50 mls/hr Ipratropium [place] (Atrovent Neb 0.5mg/2.5ml) 0.5 mg HHN Q4HRT [facility] Stop: 08/06/17 18:59 Last Admin: 06/22/17 14:31 Dose: 0.5 mg Lactulose (Cephulac) 30 gm PO BID FERNANDO Stop: 08/03/17 16:59 Last Admin: 06/22/17 09:26 Dose: 30 gm Lorazepam (Ativan) 0.5 mg IVP Q8HR PRN; Protocol PRN Reason: Agitation Stop: 08/14/17 14:52 Last Admin: 06/16/17 00:52 Dose: 0.5 mg Methylprednisolone Sodium Succinate (Solu-Medrol) 40 mg IVP Q12HR FERNANDO Stop: 08/19/17 20:59 Last Admin: 06/22/17 09:26 Dose: 40 mg Metoclopramide HCl (Reglan) 5 mg PO TID [facility] Stop: 08/16/17 13:59 Last Admin: 06/22/17 14:30 Dose: 5 mg Midodrine (Proamatine) 5 mg PO TID [facility] Stop: 08/10/17 20:59 Last Admin: 06/22/17 14:30 Dose: 5 mg Miscellaneous (Vte Chemical Prophylaxis Screen/ Admission) 1 ea PRN PRN PRN Reason: PROTOCOL Stop: 07/31/17 14:00 Miscellaneous (Probiotic Screen) 1 ea PRN PRN PRN Reason: PROTOCOL Stop: 07/31/17 16:02 Morphine Sulfate (Morphine) 2 mg IVP Q4HR PRN PRN Reason: Pain (Moderate) Stop: 08/13/17 10:37 Last Admin: 06/21/17 13:39 Dose: 2 mg Multivitamins/Vitamin C (Theragran) 1 tab GT DAILY [facility] Stop: 07/31/17 08:59 Last Admin: 06/22/17 09:28 Dose: 1 tab Ondansetron HCl (Zofran) 4 mg IV Q8H PRN PRN Reason: Nausea / Vomiting Stop: 07/30/17 13:41 Sodium Phosphate (Fleet Enema) 133 ml RC DAILY PRN PRN Reason: Constipation Stop: 07/30/17 13:39 General: weak, congested HEENT: NC/AT, PERRLA Neck: No LAD, deformity Lungs: congested, rales, ronchi Cardiovascular: RRR, Normal S1, Normal S2, without murmur Abdomen: soft, non-tender, non-distended, +GT, positive bowel sound Extremities: excoriation, ecchymosis, contracture, deformity, atrophy Neurological: unable to follow command - Procedures Procedures: Procedures Procedure Code Date INSERT EMERGENCY AIRWAY 29849 05/31/17 INSERTION OF ENDOTRACHEAL AIRWAY INTO [place], VIA OPENING [id number] 05/31/17 RESPIRATORY VENTILATION, GREATER THAN 96 CONSECUTIVE HOURS [id number] 05/31/17 VENT MGMT INPAT INIT DAY 16338 05/31/17 Internal Medicine Assmt/Plan - Assessment Assessment: - Assessment Assessment: S/p cardiopulmonary arrest, now extubated lactic acidosis Acute Respiratory Failure Sepsis PNA leukocytosis hypokalemia acute renal insufficiency spastic quadriplegia seizures - Plan Plan: sputum cx vent support inhalation treatments empiric ivantibiotics pulmo follow up continue current plan of care dw father - Plan Plan: addendum spoke w father and mother on vent, unable to be wean off post sx dw anesthesia, dr english, will confer w dr dmitri jasso rn Nutritional Asmnt/Malnutr-PDOC - Dietary Evaluation Malnutrition Findings (Please click <Entered> for more info): Nutritional Asmnt/Malnutrition Start: 06/01/17 17: 31 Text: Status: Complete Freq: Document 06/01/17 17:31 LCHENG (Rec: 06/01/17 17:45 LCHENG [id number]) Nutritional Asmnt/Malnutrition Patient General Information Nutritional Screening High Risk Consult Diagnosis renal failure, prespiratory failure r/o PNA Pertinent Medical Hx/Surgical Hx dementia, MR anemia, spastic quadriplegia, cerebral palsy, seizure, aspiration PNA, s/p respiratory failure, spsis, hyponatremia, gastroenteritis, PEG Subjective Information Consult received for [place]ibal 13 and pressure ulcer. Pt seen resting in bed at the time of visit, intubated, non-verbal noted. TF not running at this time. Current Diet Order/ Nutrition Support Isosource 1.5 87ml/hr x 17hr Pertinent Medications vitamin C, vitamin D3, D5w, teragran, piperacillin, miralax, cancomycin Pertinent Labs / na 160, Cl 120, K 4.1, BUN 29, Cr 0.3, Glucose 242, A1c 5.1, Ca 8.4, Mg 2.8 Nutritional Hx/Data Height 1.68 m Height (Calculated Centimeters) 167.6 Current Weight (lbs) 47.854 kg Weight (Calculated Kilograms) 47.9 Weight (Calculated Grams) 61069.0 [place] Body Weight 142 % [place] Body Weight 94 Body Mass Index (BMI) 17.0 Weight Status Underweight GI Symptoms GI Symptoms None Last BM none Difficult in: None Usual diet at home Jevity 1.5 87ml/hr x 17hr Skin Integrity/Comment: decubitus ulceration to sacrum Estimated Nutritional Goals Calories/Kcals/Kg 25-30 Kcals Calculated [id number] based on IBW 65kg Protein g/k.2-1.4 Protein Calculated 78-91 consider respiratory failure and skin probelm Nutritional Problem 1. Problem Problem excessive intake from enteral feeding Etiology current TF regimen providing excessive calorie and protein than estimated nutritional needs Signs/Symptoms: current TF providing 114% of calorie needs and 110% of protein needs Malnutrition Alert Protein-Calorie Malnutrition N/A Is there a minimum of two criteria No selected? Query Text:Check all the applicable criteria. A minimum of two criteria are recommended for diagnosis of either severe or non-severe malnutrition. Intervention/Recommendation Comments 1. Recommend modify TF rate to 70ml/hr x 17hr to meet 100% of nutritional needs and avoid overfeeding. 2. Monitor TF rate, tolerance, wt weekly, skin integrity and labs 3. F/U as moderate risk in 3-5 days, 04/25-04/27 Expected Outcomes/Goals Expected Outcomes/Goals 1. Pt to meet 75-100% of nutritional needs via nutrition support with tolerance 2. 2. Wt stability, skin to remain intact, labs to approach WNL.
[2017-06-23] MEDS: Diltiazem 30 mg Tab PO SCH ×4 (00:55→17:43)
[2017-06-23] MEDS: Albuterol Nebulizer 2.5mg/3mL HHN SCH ×6 (03:33→23:08)
[2017-06-23] MEDS: Ipratropium Neb 0.5 mg/2.5 mL UD HHN SCH ×6 (03:34→23:07)
[2017-06-23] MEDS: Acetylcysteine 10% 10 ML VIAL HHN SCH ×3 (03:34→10:43)
[2017-06-23 05:38] LABS: HEMATOCRIT 27.7 % (41.0-60); HEMOGLOBIN 9.3 gm/dL (12-16); LYMPHOCYTE ABSOLUTE 0.1 Th/cmm (1.5-3.0); MEAN CELL VOLUME 90.5 fl (80-99); MEAN CORPUSCULAR HEMOGLOBIN 30.5 pg (26.0-30.0); MEAN CORPUSCULAR HGB CONC 33.7 pg (28.0-36.0); MEAN PLATELET VOLUME 7.8 fl; MONOCYTE ABSOLUTE 0.1 Th/cmm (0.3-1.0); NEUTROPHILE ABSOLUTE 3.5 Th/cmm (1.8-8.0); PLATELET COUNT 57 Th/cmm (150-400); RED BLOOD COUNT 3.06 Mil/cmm (4.30-5.70); RED CELL DISTRIBUTION WIDTH 17.2 % (11.5-20.0)
[2017-06-23 05:45] LABS: WHITE BLOOD COUNT 3.7 Th/cmm (4.8-10.8)
[2017-06-23 05:55] LABS: PROTHROMBIN TIME (TEST) 10.4 SECONDS (9.5-11.5)
[2017-06-23 06:03] LABS: ALBUMIN 2.1 gm/dL (4.2-5.5); ALKALINE PHOSPHATASE 70 U/L (34-104); BILIRUBIN,TOTAL 0.5 mg/dL (0.3-1.0); CALCIUM SERUM 8.1 mg/dL (8.6-10.3); CHLORIDE 106 mEq/L (98-107); CREATININE - SERUM 0.2 mg/dL (0.7-1.3); GFR AFRICAN-AMERICAN > 60.0 ml/min (>90); GFR NON AFRICAN-AMERICAN > 60.0 ml/min; MAGNESIUM 1.8 mg/dL (1.9-2.7); SGOT 28 U/L (13-39); SGPT/ALT 83 U/L (7-52); SODIUM SERUM 142 mEq/L (136-145); TOTAL PROTEIN,SERUM 4.3 gm/dL (6.0-8.3)
[2017-06-23 06:04] LABS: GLUCOSE 129 mg/dL (70-105)
[2017-06-23 06:10] LABS: TOTAL CELLS COUNTED 100
[2017-06-23 06:11] LABS: BAND NEUTROPHILE 30 % (0-10); LYMPHOCYTE 4 % (20-50); METAMYELOCYTE 2 % (0-0); MONOCYTE 1 % (2-10); MYELOCYTE 1 %; NEUTROPHILS 62 % (40-80); PLATELET ESTIMATE DECREASED PLATELETS (NORMAL)
[2017-06-23 06:12] LABS: ANISOCYTOSIS 1+; HYPOCHROMIA 1+
[2017-06-23 07:55] LABS: BUN - UREA NITROGEN 18 mg/dL (7-25)
[2017-06-23] MEDS: methylPREDNISolone SS 40 mg Vial IVP SCH ×2 (09:01→21:12)
[2017-06-23] MEDS: Multivitamin Tab GT SCH (09:01)
[2017-06-23] MEDS: Lactulose 10 Gm/15 mL 30mL UDC PO SCH ×2 (09:01→17:40)
[2017-06-23] MEDS: Venelex 60gm Tube TP SCH (09:07)
--- NOTE | 2017-06-23 13:22 | Internal Medicine Prog Note ---
Internal Medicine Subjective - Subjective Patient seen and examined:: with staff, chart reviewed Patient is:: awake, non-verbal, non-interactive, in bed Patient Complaints of:: congestion Per staff patient has:: no adverse event, tolerating meds Internal Medicine Objective - Results Result Diagrams: 06/23/17 05:00 06/23/17 05:00 Recent Labs: Laboratory Last Values WBC 3.7 Th/cmm (4.8-10.8) L D 06/23/17 05:00 RBC 3.06 Mil/cmm (4.30-5.70) L 06/23/17 05:00 Hgb 9.3 gm/dL (12-16) L 06/23/17 05:00 Hct 27.7 % (41.0-60) L 06/23/17 05:00 MCV 90.5 fl (80-99) 06/23/17 05:00 MCH 30.5 pg (26.0-30.0) H 06/23/17 05:00 MCHC Differential 33.7 pg (28.0-36.0) 06/23/17 05:00 RDW 17.2 % (11.5-20.0) 06/23/17 05:00 Plt Count 57 Th/cmm (150-400) L 06/23/17 05:00 MPV 7.8 fl 06/23/17 05:00 Neutrophils % 89.7 % (40.0-80.0) H 06/05/17 05:48 Band Neutrophils % 30 % (0-10) H 06/23/17 05:00 Lymphocytes % 6.6 % (20.0-50.0) L 06/05/17 05:48 Monocytes % 3.6 % (2.0-10.0) 06/05/17 05:48 Eosinophils % 0.1 % (0.0-5.0) 06/05/17 05:48 Basophils % 0.0 % (0.0-2.0) 06/05/17 05:48 Neutrophils (Manual) 62 % (40-80) 06/23/17 05:00 Lymphocytes 4 % (20-50) L 06/23/17 05:00 Monocytes 1 % (2-10) L 06/23/17 05:00 Eosinophils 1 % (0-5) 06/16/17 04:25 Metamyelocytes 2 % (0-0) H 06/23/17 05:00 Myelocytes 1 % 06/23/17 05:00 Hypochromia 1+ 06/23/17 05:00 Platelet Estimate DECREASED PLATELETS (NORMAL) 06/23/17 05:00 Anisocytosis 1+ 06/23/17 05:00 PT 10.4 SECONDS (9.5-11.5) 06/23/17 05:00 INR 1.00 (0.5-1.4) 06/23/17 05:00 PTT (Actin FS) 19.5 SECONDS (26.0-38.0) L 06/23/17 05:00 Specimen Source Arterial 06/17/17 16:16 Sample Site Right Radial 06/17/17 16:16 pH 7.53 (7.35-7.45) H 06/17/17 16:16 pCO2 37.0 mmHg (35.0-45.0) 06/17/17 16:16 pO2 70.0 mmHg (80.0-100.0) L 06/17/17 16:16 HCO3 31.0 mEq/L (20.0-26.0) H 06/17/17 16:16 Base Excess 7.8 mEq/L (-3.0-3.0) H 06/17/17 16:16 O2 Saturation 96.0 % (92.0-100.0) 06/17/17 16:16 Endy Test YES 06/17/17 16:16 Vent Rate NA 06/17/17 16:16 Inspired O2 40 06/17/17 16:16 Tidal Volume NA 06/17/17 16:16 PEEP NA 06/17/17 16:16 Pressure (ins/psv/peep) NA 06/17/17 16:16 Critical Value SH 06/17/17 16:16 Sodium 142 mEq/L (136-145) 06/23/17 05:00 Potassium 4.0 mEq/L (3.5-5.1) 06/23/17 05:00 Chloride 106 mEq/L (98-107) 06/23/17 05:00 Carbon Dioxide 28.0 mEq/L (21.0-31.0) 06/23/17 05:00 Anion Gap 12.0 (7.0-16.0) 06/23/17 05:00 BUN 18 mg/dL (7-25) 06/23/17 05:00 Creatinine 0.2 mg/dL (0.7-1.3) L 06/23/17 05:00 Est GFR ( Amer) > 60.0 ml/min (>90) 06/23/17 05:00 Est GFR (Non-Af Amer) > 60.0 ml/min 06/23/17 05:00 BUN/Creatinine Ratio 90.0 06/23/17 05:00 Glucose 129 mg/dL (70-105) H D 06/23/17 05:00 POC Glucose 124 MG/DL (70 - 105) H 06/14/17 05:50 Hemoglobin A1c % 5.1 % (4.0-6.0) 06/01/17 05:30 Whole Bld Lactic Acid 3.45 mmol/L (0.60-1.99) H* 06/03/17 06:45 Calcium 8.1 mg/dL (8.6-10.3) L 06/23/17 05:00 Magnesium 1.8 mg/dL (1.9-2.7) L 06/23/17 05:00 Total Bilirubin 0.5 mg/dL (0.3-1.0) 06/23/17 05:00 AST 28 U/L (13-39) 06/23/17 05:00 ALT 83 U/L (7-52) H 06/23/17 05:00 Alkaline Phosphatase 70 U/L (34-104) 06/23/17 05:00 Ammonia 54 umol/L (16-53) H 06/20/17 18:05 B-Natriuretic Peptide 129.0 pg/mL (5.0-100.0) H 06/04/17 06:45 Total Protein 4.3 gm/dL (6.0-8.3) L 06/23/17 05:00 Albumin 2.1 gm/dL (4.2-5.5) L 06/23/17 05:00 Globulin 2.2 gm/dL 06/23/17 05:00 Albumin/Globulin Ratio 1.0 (1.0-1.8) 06/23/17 05:00 TSH 0.72 uIU/ml (0.34-5.60) 06/01/17 05:30 Urine Source CATH 05/31/17 12:35 Urine Color YELLOW 05/31/17 12:35 Urine Clarity CLOUDY (CLEAR) 05/31/17 12:35 Urine pH 8.5 (4.6 - 8.0) 05/31/17 12:35 Ur Specific [place] 1.010 (1.005-1.030) 05/31/17 12:35 Urine Protein 30 mg/dL (NEGATIVE) H 05/31/17 12:35 Urine Glucose (UA) NEGATIVE mg/dL (NEGATIVE) 05/31/17 12:35 Urine Ketones NEGATIVE mg/dL (NEGATIVE) 05/31/17 12:35 Urine Blood MODERATE (NEGATIVE) H 05/31/17 12:35 Urine Nitrate NEGATIVE (NEGATIVE) 05/31/17 12:35 Urine Bilirubin NEGATIVE (NEGATIVE) 05/31/17 12:35 Urine Urobilinogen 0.2 E.U./dL (0.2 - 1.0) 05/31/17 12:35 Ur Leukocyte Esterase NEGATIVE (NEGATIVE) 05/31/17 12:35 Urine RBC >100 /hpf (0-5) H 05/31/17 12:35 Urine WBC 2-5 /hpf (0-5) H 05/31/17 12:35 Ur Epithelial Cells NONE SEEN /lpf (FEW) 05/31/17 12:35 Urine Bacteria NONE SEEN /hpf (NONE SEEN) 05/31/17 12:35 Stool Occult Blood NEGATIVE (NEGATIVE) 06/05/17 06:00 Gentamicin Peak 13.8 ug/ml (4.0-8.0) H 06/11/17 11:05 Gentamicin Trough 0.8 ug/ml (0.2-2.0) 06/11/17 08:00 Vancomycin Trough 10.7 ug/mL (10-20) 06/04/17 09:00 Hepatitis A IgM Ab Negative (Negative) 06/10/17 06:20 Hep Bs Antigen Negative (Negative) 06/10/17 06:20 Hep B Core IgM Ab Negative (Negative) 06/10/17 06:20 Hepatitis C Antibody 6.9 s/co ratio (0.0-0.9) H 06/10/17 06:20 Influenza A (Rapid) NEG FOR INF A 06/05/17 08:00 Influenza B (Rapid) NEG FOR INF B 06/05/17 08:00 Blood Type O POSITIVE 06/02/17 11:40 Antibody Screen NEGATIVE 06/02/17 11:40 Crossmatch See Detail 06/02/17 11:40 - Physical Exam Vitals and I&O: Vital Signs Temp 97 F 06/23/17 10:00 Pulse 92 06/23/17 12:15 Resp 20 06/23/17 12:00 BP 120/66 06/23/17 10:00 Pulse Ox 96 06/23/17 10:51 Intake & Output 06/22/17 06/23/17 06/23/17 18:59 06:59 18:59 Intake Total 690 Output Total 750 900 Balance -60 -900 Weight (lbs) 71.668 kg 71.758 kg Intake: Tube Feeding 490 Other 200 Output: Urine 750 900 Other: # Bowel Movements 1 Stool Characteristics Liquid Liquid Liquid Brown Brown Brown Active Medications: Current Medications Acetaminophen (Tylenol 650mg Supp) 650 mg RC Q4HR PRN PRN Reason: FEVER >100.1 Stop: 07/30/17 13:39 Acetylcysteine (Mucomyst 10%) 6 ml HHN Q4HRT [facility] Stop: 08/08/17 14:59 Last Admin: 06/23/17 10:43 Dose: 6 ml Acetylcysteine (Mucomyst 20%) 3 ml HHN Q4HRT [facility] Stop: 08/22/17 18:59 Albuterol Sulfate (Albuterol 2.5mg/3ml Neb Ud) 1.25 mg HHN Q4HRT [facility] Stop: 08/06/17 18:59 Last Admin: 06/23/17 10:42 Dose: 1.25 mg Ascorbic Acid (Vitamin C) 500 mg GT DAILY [facility] Stop: 07/31/17 08:59 Last Admin: 06/23/17 09:02 Dose: 500 mg Bisacodyl (Dulcolax 10 Mg Supp) 10 mg RC Q72HR PRN PRN Reason: Constipation Stop: 07/30/17 13:39 Webster Oil/Polish Balsam/Trypsin (Venelex) 1 appl TP DAILY [facility] Stop: 08/15/17 08:59 Last Admin: 06/23/17 09:07 Dose: 1 appl Cholecalciferol (Vitamin D3) 500 iu PO DAILY [facility] Stop: 07/31/17 08:59 Last Admin: 01/27/18 09:02 Dose: 500 iu Diltiazem HCl (Cardizem) 20 mg IVP Q4H PRN PRN Reason: HR Greater than 130 per min Stop: 08/19/17 17:40 Diltiazem HCl (Cardizem) 60 mg PO Q6HR [facility] Stop: 08/19/17 17:59 Last Admin: 06/23/17 12:15 Dose: 60 mg Famotidine (Pepcid) 20 mg PO BID [facility] Stop: 08/19/17 16:59 Last Admin: 06/23/17 09:02 Dose: 20 mg Guaifenesin (Robitussin) 200 mg PO Q4HR PRN PRN Reason: Cough or Congestion Stop: 07/30/17 13:41 Last Admin: 06/10/17 20:59 Dose: 200 mg Norepinephrine Bitartrate 4 mg (/ Dextrose) 254 mls @ 30.48 mls/hr IV TITR PRN ; Protocol; 8 MCG/MIN PRN Reason: BP MAINTENANCE (PER PROTOCOL) Stop: 07/31/17 16:46 Last Titration: 06/03/17 00:00 Dose: 0 mcg/min, 0 mls/hr Magnesium Sulfate (Magnesium Sulfate Premix) 2 gm in 50 mls @ 25 mls/hr IV X1 ONE Stop: 06/23/17 15:20 Ipratropium [place] (Atrovent Neb 0.5mg/2.5ml) 0.5 mg HHN Q4HRT [facility] Stop: 08/06/17 18:59 Last Admin: 06/23/17 10:42 Dose: 0.5 mg Lactulose (Cephulac) 30 gm PO BID [facility] Stop: 08/03/17 16:59 Last Admin: 06/23/17 09:01 Dose: 30 gm Lorazepam (Ativan) 0.5 mg IVP Q8HR PRN; Protocol PRN Reason: Agitation Stop: 08/14/17 14:52 Last Admin: 06/16/17 00:52 Dose: 0.5 mg Methylprednisolone Sodium Succinate (Solu-Medrol) 40 mg IVP Q12HR [facility] Stop: 08/19/17 20:59 Last Admin: 06/23/17 09:01 Dose: 40 mg Metoclopramide HCl (Reglan) 5 mg PO TID [facility] Stop: 08/16/17 13:59 Last Admin: 06/23/17 09:02 Dose: 5 mg Midodrine (Proamatine) 5 mg PO TID [facility] Stop: 08/10/17 20:59 Last Admin: 06/23/17 09:01 Dose: 5 mg Miscellaneous (Vte Chemical Prophylaxis Screen/ Admission) 1 ea MC PRN PRN PRN Reason: PROTOCOL Stop: 07/31/17 14:00 Miscellaneous (Probiotic Screen) 1 ea PRN PRN PRN Reason: PROTOCOL Stop: 07/31/17 16:02 Morphine Sulfate (Morphine) 2 mg IVP Q4HR PRN PRN Reason: Pain (Moderate) Stop: 08/13/17 10:37 Last Admin: 06/21/17 13:39 Dose: 2 mg Multivitamins/Vitamin C (Theragran) 1 tab GT DAILY [facility] Stop: 07/31/17 08:59 Last Admin: 06/23/17 09:01 Dose: 1 tab Ondansetron HCl (Zofran) 4 mg IV Q8H PRN PRN Reason: Nausea / Vomiting Stop: 07/30/17 13:41 Sodium Phosphate (Fleet Enema) 133 ml RC DAILY PRN PRN Reason: Constipation Stop: 07/30/17 13:39 General: weak, congested HEENT: NC/AT, PERRLA Neck: No LAD, deformity Lungs: congested, rales, ronchi Cardiovascular: RRR, Normal S1, Normal S2, without murmur Abdomen: soft, non-tender, non-distended, +GT, positive bowel sound Extremities: excoriation, ecchymosis, contracture, deformity, atrophy Neurological: unable to follow command - Procedures Procedures: Procedures Procedure Code Date INSERT EMERGENCY AIRWAY 78988 05/31/17 INSERTION OF ENDOTRACHEAL AIRWAY INTO [place]HE[place], VIA OPENING [id number] 05/31/17 RESPIRATORY VENTILATION, GREATER THAN 96 CONSECUTIVE HOURS [id number] 05/31/17 VENT MGMT INPAT INIT DAY [id number] 05/31/17 Internal Medicine Assmt/Plan - Assessment Assessment: - Assessment Assessment: S/p cardiopulmonary arrest, now extubated lactic acidosis Acute Respiratory Failure Sepsis PNA leukocytosis hypokalemia acute renal insufficiency spastic quadriplegia seizures - Plan Plan: sputum cx vent support inhalation treatments empiric ivantibiotics pulmo follow up continue current plan of care dw father - Plan Plan: addendum spoke w father and mother on vent, unable to be wean off post sx dw anesthesia, dr english, will confer w dr dmitri jasso rn Nutritional Asmnt/Malnutr-PDOC - Dietary Evaluation Malnutrition Findings (Please click <Entered> for more info): Nutritional Asmnt/Malnutrition Start: 06/01/17 17: 31 Text: Status: Complete Freq: Document 06/01/17 17:31 JOSELIN (Rec: 06/01/17 17:45 [facility] Nutritional Asmnt/Malnutrition Patient General Information Nutritional Screening High Risk Consult Diagnosis renal failure, prespiratory failure r/o PNA Pertinent Medical Hx/Surgical Hx dementia, MR anemia, spastic quadriplegia, cerebral palsy, seizure, aspiration PNA, s/p respiratory failure, spsis, hyponatremia, gastroenteritis, PEG Subjective Information Consult received for Anibal 13 and pressure ulcer. Pt seen resting in bed at the time of visit, intubated, non-verbal noted. TF not running at this time. Current Diet Order/ Nutrition Support Isosource 1.5 87ml/hr x 17hr Pertinent Medications vitamin C, vitamin D3, D5w, teragran, piperacillin, miralax, cancomycin Pertinent Labs 06/01 na 160, Cl 120, K 4.1, BUN 29, Cr 0.3, Glucose 242, A1c 5.1, Ca 8.4, Mg 2.8 Nutritional Hx/Data Height 1.68 m Height (Calculated Centimeters) 167.6 Current Weight (lbs) 47.854 kg Weight (Calculated Kilograms) 47.9 Weight (Calculated Grams) 47432.0 [place] Body Weight 142 % Mountain Body Weight 94 Body Mass Index (BMI) 17.0 Weight Status Underweight GI Symptoms GI Symptoms None Last BM none Difficult in: None Usual diet at home Jevity 1.5 87ml/hr x 17hr Skin Integrity/Comment: decubitus ulceration to sacrum Estimated Nutritional Goals Calories/Kcals/Kg 25-30 Kcals Calculated [id number] based on IBW 65kg Protein g/k.2-1.4 Protein Calculated 78-91 consider respiratory failure and skin probelm Nutritional Problem 1. Problem Problem excessive intake from enteral feeding Etiology current TF regimen providing excessive calorie and protein than estimated nutritional needs Signs/Symptoms: current TF providing 114% of calorie needs and 110% of protein needs Malnutrition Alert Protein-Calorie Malnutrition N/A Is there a minimum of two criteria No selected? Query Text:Check all the applicable criteria. A minimum of two criteria are recommended for diagnosis of either severe or non-severe malnutrition. Intervention/Recommendation Comments 1. Recommend modify TF rate to 70ml/hr x 17hr to meet 100% of nutritional needs and avoid overfeeding. 2. Monitor TF rate, tolerance, wt weekly, skin integrity and labs 3. F/U as moderate risk in 3-5 days, 04/25-04/27 Expected Outcomes/Goals Expected Outcomes/Goals 1. Pt to meet 75-100% of nutritional needs via nutrition support with tolerance 2. 2. Wt stability, skin to remain intact, labs to approach WNL.
[2017-06-23] MEDS ORDERED: Mag Sulfate 2gm/50mL Premix 2 GM/50 ML BAG IV ONE (13:30)
[2017-06-24] MEDS: Diltiazem 30 mg Tab PO SCH ×4 (01:22→17:59)
[2017-06-24] MEDS: Ipratropium Neb 0.5 mg/2.5 mL UD HHN SCH ×6 (02:02→22:19)
[2017-06-24] MEDS: Albuterol Nebulizer 2.5mg/3mL HHN SCH ×6 (02:02→22:19)
[2017-06-24] MEDS: Lactulose 10 Gm/15 mL 30mL UDC PO SCH ×2 (08:33→18:00)
[2017-06-24] MEDS: Multivitamin Tab GT SCH (08:34)
[2017-06-24] MEDS: methylPREDNISolone SS 40 mg Vial IVP SCH ×2 (08:34→21:33)
[2017-06-24] MEDS: Venelex 60gm Tube TP SCH (08:35)
--- NOTE | 2017-06-24 12:10 | Internal Medicine Prog Note ---
Internal Medicine Subjective - Subjective Patient seen and examined:: with staff, chart reviewed Patient is:: awake, non-verbal, non-interactive, in bed Patient Complaints of:: congestion Per staff patient has:: no adverse event, tolerating meds Internal Medicine Objective - Results Result Diagrams: 06/23/17 05:00 06/23/17 05:00 Recent Labs: Laboratory Last Values WBC 3.7 Th/cmm (4.8-10.8) L D 06/23/17 05:00 RBC 3.06 Mil/cmm (4.30-5.70) L 06/23/17 05:00 Hgb 9.3 gm/dL (12-16) L 06/23/17 05:00 Hct 27.7 % (41.0-60) L 06/23/17 05:00 MCV 90.5 fl (80-99) 06/23/17 05:00 MCH 30.5 pg (26.0-30.0) H 06/23/17 05:00 MCHC Differential 33.7 pg (28.0-36.0) 06/23/17 05:00 RDW 17.2 % (11.5-20.0) 06/23/17 05:00 Plt Count 57 Th/cmm (150-400) L 06/23/17 05:00 MPV 7.8 fl 06/23/17 05:00 Neutrophils % 89.7 % (40.0-80.0) H 06/05/17 05:48 Band Neutrophils % 30 % (0-10) H 06/23/17 05:00 Lymphocytes % 6.6 % (20.0-50.0) L 06/05/17 05:48 Monocytes % 3.6 % (2.0-10.0) 06/05/17 05:48 Eosinophils % 0.1 % (0.0-5.0) 06/05/17 05:48 Basophils % 0.0 % (0.0-2.0) 06/05/17 05:48 Neutrophils (Manual) 62 % (40-80) 06/23/17 05:00 Lymphocytes 4 % (20-50) L 06/23/17 05:00 Monocytes 1 % (2-10) L 06/23/17 05:00 Eosinophils 1 % (0-5) 06/16/17 04:25 Metamyelocytes 2 % (0-0) H 06/23/17 05:00 Myelocytes 1 % 06/23/17 05:00 Hypochromia 1+ 06/23/17 05:00 Platelet Estimate DECREASED PLATELETS (NORMAL) 06/23/17 05:00 Anisocytosis 1+ 06/23/17 05:00 PT 10.4 SECONDS (9.5-11.5) 06/23/17 05:00 INR 1.00 (0.5-1.4) 06/23/17 05:00 PTT (Actin FS) 19.5 SECONDS (26.0-38.0) L 06/23/17 05:00 Specimen Source Arterial 06/17/17 16:16 Sample Site Right Radial 06/17/17 16:16 pH 7.53 (7.35-7.45) H 06/17/17 16:16 pCO2 37.0 mmHg (35.0-45.0) 06/17/17 16:16 pO2 70.0 mmHg (80.0-100.0) L 06/17/17 16:16 HCO3 31.0 mEq/L (20.0-26.0) H 06/17/17 16:16 Base Excess 7.8 mEq/L (-3.0-3.0) H 06/17/17 16:16 O2 Saturation 96.0 % (92.0-100.0) 06/17/17 16:16 Endy Test YES 06/17/17 16:16 Vent Rate NA 06/17/17 16:16 Inspired O2 40 06/17/17 16:16 Tidal Volume NA 06/17/17 16:16 PEEP NA 06/17/17 16:16 Pressure (ins/psv/peep) NA 06/17/17 16:16 Critical Value SH 06/17/17 16:16 Sodium 142 mEq/L (136-145) 06/23/17 05:00 Potassium 4.0 mEq/L (3.5-5.1) 06/23/17 05:00 Chloride 106 mEq/L (98-107) 06/23/17 05:00 Carbon Dioxide 28.0 mEq/L (21.0-31.0) 06/23/17 05:00 Anion Gap 12.0 (7.0-16.0) 06/23/17 05:00 BUN 18 mg/dL (7-25) 06/23/17 05:00 Creatinine 0.2 mg/dL (0.7-1.3) L 06/23/17 05:00 Est GFR ( Amer) > 60.0 ml/min (>90) 06/23/17 05:00 Est GFR (Non-Af Amer) > 60.0 ml/min 06/23/17 05:00 BUN/Creatinine Ratio 90.0 06/23/17 05:00 Glucose 129 mg/dL (70-105) H D 06/23/17 05:00 POC Glucose 124 MG/DL (70 - 105) H 06/14/17 05:50 Hemoglobin A1c % 5.1 % (4.0-6.0) 06/01/17 05:30 Whole Bld Lactic Acid 3.45 mmol/L (0.60-1.99) H* 06/03/17 06:45 Calcium 8.1 mg/dL (8.6-10.3) L 06/23/17 05:00 Magnesium 1.8 mg/dL (1.9-2.7) L 06/23/17 05:00 Total Bilirubin 0.5 mg/dL (0.3-1.0) 06/23/17 05:00 AST 28 U/L (13-39) 06/23/17 05:00 ALT 83 U/L (7-52) H 06/23/17 05:00 Alkaline Phosphatase 70 U/L (34-104) 06/23/17 05:00 Ammonia 54 umol/L (16-53) H 06/20/17 18:05 B-Natriuretic Peptide 129.0 pg/mL (5.0-100.0) H 06/04/17 06:45 Total Protein 4.3 gm/dL (6.0-8.3) L 06/23/17 05:00 Albumin 2.1 gm/dL (4.2-5.5) L 06/23/17 05:00 Globulin 2.2 gm/dL 06/23/17 05:00 Albumin/Globulin Ratio 1.0 (1.0-1.8) 06/23/17 05:00 TSH 0.72 uIU/ml (0.34-5.60) 06/01/17 05:30 Urine Source CATH 05/31/17 12:35 Urine Color YELLOW 05/31/17 12:35 Urine Clarity CLOUDY (CLEAR) 05/31/17 12:35 Urine pH 8.5 (4.6 - 8.0) 05/31/17 12:35 Ur Specific [place] 1.010 (1.005-1.030) 05/31/17 12:35 Urine Protein 30 mg/dL (NEGATIVE) H 05/31/17 12:35 Urine Glucose (UA) NEGATIVE mg/dL (NEGATIVE) 05/31/17 12:35 Urine Ketones NEGATIVE mg/dL (NEGATIVE) 05/31/17 12:35 Urine Blood MODERATE (NEGATIVE) H 05/31/17 12:35 Urine Nitrate NEGATIVE (NEGATIVE) 05/31/17 12:35 Urine Bilirubin NEGATIVE (NEGATIVE) 05/31/17 12:35 Urine Urobilinogen 0.2 E.U./dL (0.2 - 1.0) 05/31/17 12:35 Ur Leukocyte Esterase NEGATIVE (NEGATIVE) 05/31/17 12:35 Urine RBC >100 /hpf (0-5) H 05/31/17 12:35 Urine WBC 2-5 /hpf (0-5) H 05/31/17 12:35 Ur Epithelial Cells NONE SEEN /lpf (FEW) 05/31/17 12:35 Urine Bacteria NONE SEEN /hpf (NONE SEEN) 05/31/17 12:35 Stool Occult Blood NEGATIVE (NEGATIVE) 06/05/17 06:00 Gentamicin Peak 13.8 ug/ml (4.0-8.0) H 06/11/17 11:05 Gentamicin Trough 0.8 ug/ml (0.2-2.0) 06/11/17 08:00 Vancomycin Trough 10.7 ug/mL (10-20) 06/04/17 09:00 Hepatitis A IgM Ab Negative (Negative) 06/10/17 06:20 Hep Bs Antigen Negative (Negative) 06/10/17 06:20 Hep B Core IgM Ab Negative (Negative) 06/10/17 06:20 Hepatitis C Antibody 6.9 s/co ratio (0.0-0.9) H 06/10/17 06:20 Influenza A (Rapid) NEG FOR INF A 06/05/17 08:00 Influenza B (Rapid) NEG FOR INF B 06/05/17 08:00 Blood Type O POSITIVE 06/02/17 11:40 Antibody Screen NEGATIVE 06/02/17 11:40 Crossmatch See Detail 06/02/17 11:40 - Physical Exam Vitals and I&O: Vital Signs Temp 97 F 06/24/17 08:00 Pulse 91 06/24/17 11:30 Resp 20 06/24/17 11:30 BP 107/59 06/24/17 08:00 Pulse Ox 94 06/24/17 11:30 Intake & Output 06/23/17 06/24/17 06/24/17 18:59 06:59 18:59 Intake Total 50 Balance 50 Weight (lbs) 70.896 kg Intake: Intake, IV Amount 50 Other: Stool Characteristics Liquid Liquid Liquid Brown Brown Active Medications: Current Medications Acetaminophen (Tylenol 650mg Supp) 650 mg RC Q4HR PRN PRN Reason: FEVER >100.1 Stop: 07/30/17 13:39 Acetylcysteine (Mucomyst 20%) 3 ml HHN Q4HRT [facility] Stop: 08/22/17 18:59 Last Admin: 06/24/17 11:27 Dose: 3 ml Albuterol Sulfate (Albuterol 2.5mg/3ml Neb Ud) 1.25 mg HHN Q4HRT [facility] Stop: 08/06/17 18:59 Last Admin: 06/24/17 11:27 Dose: 1.25 mg Ascorbic Acid (Vitamin C) 500 mg GT DAILY [facility] Stop: 07/31/17 08:59 Last Admin: 06/24/17 08:34 Dose: 500 mg Bisacodyl (Dulcolax 10 Mg Supp) 10 mg RC Q72HR PRN PRN Reason: Constipation Stop: 07/30/17 13:39 [place] Oil/[place] Balsam/Trypsin (Venelex) 1 appl TP DAILY [facility] Stop: 08/15/17 08:59 Last Admin: 06/24/17 08:35 Dose: 1 appl Cholecalciferol (Vitamin D3) 500 iu PO DAILY [facility] Stop: 07/31/17 08:59 Last Admin: 06/24/17 08:34 Dose: 500 iu Diltiazem HCl (Cardizem) 20 mg IVP Q4H PRN PRN Reason: HR Greater than 130 per min Stop: 08/19/17 17:40 Diltiazem HCl (Cardizem) 60 mg PO Q6HR [facility] Stop: 08/19/17 17:59 Last Admin: 06/24/17 06:01 Dose: 60 mg Famotidine (Pepcid) 20 mg PO BID [facility] Stop: 08/19/17 16:59 Last Admin: 06/24/17 08:34 Dose: 20 mg Guaifenesin (Robitussin) 200 mg PO Q4HR PRN PRN Reason: Cough or Congestion Stop: 07/30/17 13:41 Last Admin: 06/10/17 20:59 Dose: 200 mg Norepinephrine Bitartrate 4 mg (/ Dextrose) 254 mls @ 30.48 mls/hr IV TITR PRN ; Protocol; 8 MCG/MIN PRN Reason: BP MAINTENANCE (PER PROTOCOL) Stop: 07/31/17 16:46 Last Titration: 06/03/17 00:00 Dose: 0 mcg/min, 0 mls/hr Ipratropium Solen (Atrovent Neb 0.5mg/2.5ml) 0.5 mg HHN Q4HRT [facility] Stop: 08/06/17 18:59 Last Admin: 06/24/17 11:27 Dose: 0.5 mg Lactulose (Cephulac) 30 gm PO BID [facility] Stop: 08/03/17 16:59 Last Admin: 06/24/17 08:33 Dose: 30 gm Lorazepam (Ativan) 0.5 mg IVP Q8HR PRN; Protocol PRN Reason: Agitation Stop: 08/14/17 14:52 Last Admin: 06/16/17 00:52 Dose: 0.5 mg Methylprednisolone Sodium Succinate (Solu-Medrol) 40 mg IVP Q12HR [facility] Stop: 08/19/17 20:59 Last Admin: 06/24/17 08:34 Dose: 40 mg Metoclopramide HCl (Reglan) 5 mg PO TID [facility] Stop: 08/16/17 13:59 Last Admin: 06/24/17 08:33 Dose: 5 mg Midodrine (Proamatine) 5 mg PO TID [facility] Stop: 08/10/17 20:59 Last Admin: 06/24/17 08:35 Dose: 5 mg Miscellaneous (Vte Chemical Prophylaxis Screen/ Admission) 1 ea MC PRN PRN PRN Reason: PROTOCOL Stop: 07/31/17 14:00 Miscellaneous (Probiotic Screen) 1 ea MC PRN PRN PRN Reason: PROTOCOL Stop: 07/31/17 16:02 Morphine Sulfate (Morphine) 2 mg IVP Q4HR PRN PRN Reason: Pain (Moderate) Stop: 08/13/17 10:37 Last Admin: 06/21/17 13:39 Dose: 2 mg Multivitamins/Vitamin C (Theragran) 1 tab GT DAILY [facility] Stop: 07/31/17 08:59 Last Admin: 06/24/17 08:34 Dose: 1 tab Ondansetron HCl (Zofran) 4 mg IV Q8H PRN PRN Reason: Nausea / Vomiting Stop: 07/30/17 13:41 Sodium Phosphate (Fleet Enema) 133 ml RC DAILY PRN PRN Reason: Constipation Stop: 07/30/17 13:39 General: weak, congested HEENT: NC/AT, PERRLA Neck: No LAD, deformity Lungs: congested, rales, ronchi Cardiovascular: RRR, Normal S1, Normal S2, without murmur Abdomen: soft, non-tender, non-distended, +GT, positive bowel sound Extremities: excoriation, ecchymosis, contracture, deformity, atrophy Neurological: unable to follow command - Procedures Procedures: Procedures Procedure Code Date INSERT EMERGENCY AIRWAY [id number] 05/31/17 INSERTION OF ENDOTRACHEAL AIRWAY INTO TRACHEA, VIA OPENING [id number] 05/31/17 RESPIRATORY VENTILATION, GREATER THAN 96 CONSECUTIVE HOURS [id number] 05/31/17 VENT MGMT INPAT INIT DAY 14657 05/31/17 Internal Medicine Assmt/Plan - Assessment Assessment: - Assessment Assessment: bandemia S/p cardiopulmonary arrest, now extubated lactic acidosis Acute Respiratory Failure Sepsis PNA leukocytosis hypokalemia acute renal insufficiency spastic quadriplegia seizures - Plan Plan: sputum cx vent support inhalation treatments empiric ivantibiotics pulmo follow up continue current plan of care dw father - Plan Plan: addendum spoke w father and mother on vent, unable to be wean off post sx dw anesthesia, dr english, will confer w dr dmitri jasso rn Nutritional Asmnt/Malnutr-PDOC - Dietary Evaluation Malnutrition Findings (Please click <Entered> for more info): Nutritional Asmnt/Malnutrition Start: 06/01/17 17: 31 Text: Status: Complete Freq: Document 06/01/17 17:31 LCHENG (Rec: 06/01/17 17:45 LCHENG [id number]) Nutritional Asmnt/Malnutrition Patient General Information Nutritional Screening High Risk Consult Diagnosis renal failure, prespiratory failure r/o PNA Pertinent Medical Hx/Surgical Hx dementia, MR anemia, spastic quadriplegia, cerebral palsy, seizure, aspiration PNA, s/p respiratory failure, spsis, hyponatremia, gastroenteritis, PEG Subjective Information Consult received for Anibal 13 and pressure ulcer. Pt seen resting in bed at the time of visit, intubated, non-verbal noted. TF not running at this time. Current Diet Order/ Nutrition Support Isosource 1.5 87ml/hr x 17hr Pertinent Medications vitamin C, vitamin D3, D5w, teragran, piperacillin, miralax, cancomycin Pertinent Labs 06/01 na 160, Cl 120, K 4.1, BUN 29, Cr 0.3, Glucose 242, A1c 5.1, Ca 8.4, Mg 2.8 Nutritional Hx/Data Height 1.68 m Height (Calculated Centimeters) 167.6 Current Weight (lbs) 47.854 kg Weight (Calculated Kilograms) 47.9 Weight (Calculated Grams) 16229.0 [place] Body Weight 142 % [place] Body Weight 94 Body Mass Index (BMI) 17.0 Weight Status Underweight GI Symptoms GI Symptoms None Last BM none Difficult in: None Usual diet at home Jevity 1.5 87ml/hr x 17hr Skin Integrity/Comment: decubitus ulceration to sacrum Estimated Nutritional Goals Calories/Kcals/Kg 25-30 Kcals Calculated [id number] based on IBW 65kg Protein g/k.2-1.4 Protein Calculated 78-91 consider respiratory failure and skin probelm Nutritional Problem 1. Problem Problem excessive intake from enteral feeding Etiology current TF regimen providing excessive calorie and protein than estimated nutritional needs Signs/Symptoms: current TF providing 114% of calorie needs and 110% of protein needs Malnutrition Alert Protein-Calorie Malnutrition N/A Is there a minimum of two criteria No selected? Query Text:Check all the applicable criteria. A minimum of two criteria are recommended for diagnosis of either severe or non-severe malnutrition. Intervention/Recommendation Comments 1. Recommend modify TF rate to 70ml/hr x 17hr to meet 100% of nutritional needs and avoid overfeeding. 2. Monitor TF rate, tolerance, wt weekly, skin integrity and labs 3. F/U as moderate risk in 3-5 days, 04/25-04/27 Expected Outcomes/Goals Expected Outcomes/Goals 1. Pt to meet 75-100% of nutritional needs via nutrition support with tolerance 2. 2. Wt stability, skin to remain intact, labs to approach WNL.
[2017-06-25] MEDS: Diltiazem 30 mg Tab PO SCH ×4 (00:43→17:50)
[2017-06-25] MEDS: Ipratropium Neb 0.5 mg/2.5 mL UD HHN SCH ×6 (02:01→22:50)
[2017-06-25] MEDS: Albuterol Nebulizer 2.5mg/3mL HHN SCH ×6 (02:01→22:50)
[2017-06-25 06:18] LABS: ALB/GLOB RATIO 0.9 (1.0-1.8); ALBUMIN 1.9 gm/dL (4.2-5.5); ALKALINE PHOSPHATASE 62 U/L (34-104); ANION GAP 9.1 (7.0-16.0); BILIRUBIN,TOTAL 0.4 mg/dL (0.3-1.0); BUN - UREA NITROGEN 20 mg/dL (7-25); CALCIUM SERUM 7.6 mg/dL (8.6-10.3); CARBON DIOXIDE 28.2 mEq/L (21.0-31.0); CHLORIDE 108 mEq/L (98-107); CREATININE - SERUM 0.2 mg/dL (0.7-1.3); GFR AFRICAN-AMERICAN > 60.0 ml/min (>90); GFR NON AFRICAN-AMERICAN > 60.0 ml/min; GLUCOSE 277 mg/dL (70-105); MAGNESIUM 1.9 mg/dL (1.9-2.7); POTASSIUM SERUM 3.3 mEq/L (3.5-5.1); RED BLOOD COUNT 2.81 Mil/cmm (4.30-5.70); SGOT 17 U/L (13-39); SGPT/ALT 62 U/L (7-52); SODIUM SERUM 142 mEq/L (136-145)
[2017-06-25 06:19] LABS: HEMATOCRIT 25.4 % (41.0-60); HEMOGLOBIN 8.6 gm/dL (12-16); MEAN CELL VOLUME 90.5 fl (80-99); MEAN CORPUSCULAR HEMOGLOBIN 30.5 pg (26.0-30.0); MEAN CORPUSCULAR HGB CONC 33.7 pg (28.0-36.0); MEAN PLATELET VOLUME 6.6 fl
[2017-06-25 06:20] LABS: NEUTROPHILE ABSOLUTE 1.9 Th/cmm (1.8-8.0)
[2017-06-25 06:21] LABS: LYMPHOCYTE ABSOLUTE 0.1 Th/cmm (1.5-3.0); MONOCYTE ABSOLUTE 0.1 Th/cmm (0.3-1.0)
[2017-06-25 06:38] LABS: WHITE BLOOD COUNT 2.1 Th/cmm (4.8-10.8)
[2017-06-25 06:39] LABS: PLATELET COUNT 26 Th/cmm (150-400)
[2017-06-25 06:57] LABS: TOTAL CELLS COUNTED 100
[2017-06-25 07:11] LABS: BAND NEUTROPHILE 19 % (0-10); LYMPHOCYTE 3 % (20-50); MONOCYTE 2 % (2-10); NEUTROPHILS 76 % (40-80)
[2017-06-25 07:12] LABS: PLATELET ESTIMATE DECREASED PLATELETS (NORMAL)
[2017-06-25 08:05] LABS: pH 7.51 (7.35-7.45)
[2017-06-25 08:06] LABS: ALLEN TEST PASS
--- NOTE | 2017-06-25 10:29 | Diagnostic Imaging Report ---
Exam: Portable semierect examination of chest. HISTORY: Shortness of breath. Findings: Portable examination of the chest at 0857 hours reviewed compared to prior study of 06/21/2017 demonstrates bilateral pneumonia. Mediastinal structures midline bony thorax intact. The left costophrenic angle is clear. The right pleural effusion is present. Right-sided PICC line terminates in right axillary vein. IMPRESSION: Bilateral pneumonia, right pleural effusion follow-up examination is recommended.
[2017-06-25] MEDS: Multivitamin Tab GT SCH (10:39)
[2017-06-25] MEDS: Lactulose 10 Gm/15 mL 30mL UDC PO SCH ×2 (10:40→17:49)
[2017-06-25] MEDS: Venelex 60gm Tube TP SCH (10:40)
[2017-06-25] MEDS: methylPREDNISolone SS 40 mg Vial IVP SCH (10:41)
--- NOTE | 2017-06-25 13:19 | Internal Medicine Prog Note ---
Internal Medicine Subjective - Subjective Service Date: 06/25/17 (on bipap) Patient is:: awake, non-verbal, non-interactive, in bed Patient Complaints of:: congestion Per staff patient has:: no adverse event, tolerating meds Internal Medicine Objective - Results Result Diagrams: 06/25/17 05:20 06/25/17 05:20 Recent Labs: Laboratory Last Values WBC 2.1 Th/cmm (4.8-10.8) L* D 06/25/17 05:20 RBC 2.81 Mil/cmm (4.30-5.70) L 06/25/17 05:20 Hgb 8.6 gm/dL (12-16) L 06/25/17 05:20 Hct 25.4 % (41.0-60) L 06/25/17 05:20 MCV 90.5 fl (80-99) 06/25/17 05:20 MCH 30.5 pg (26.0-30.0) H 06/25/17 05:20 MCHC Differential 33.7 pg (28.0-36.0) 06/25/17 05:20 RDW 17.0 % (11.5-20.0) 06/25/17 05:20 Plt Count 26 Th/cmm (150-400) L* 06/25/17 05:20 MPV 6.6 fl 06/25/17 05:20 Neutrophils % MAPPER 06/25/17 05:20 Band Neutrophils % 19 % (0-10) H 06/25/17 05:20 Lymphocytes % MAPPER 06/25/17 05:20 Monocytes % MAPPER 06/25/17 05:20 Eosinophils % MAPPER 06/25/17 05:20 Basophils % MAPPER 06/25/17 05:20 Neutrophils (Manual) 76 % (40-80) 06/25/17 05:20 Lymphocytes 3 % (20-50) L 06/25/17 05:20 Monocytes 2 % (2-10) 06/25/17 05:20 Eosinophils 1 % (0-5) 06/16/17 04:25 Metamyelocytes 2 % (0-0) H 06/23/17 05:00 Myelocytes 1 % 06/23/17 05:00 Hypochromia 1+ 06/23/17 05:00 Platelet Estimate DECREASED PLATELETS (NORMAL) 06/25/17 05:20 Anisocytosis 1+ 06/23/17 05:00 PT 10.4 SECONDS (9.5-11.5) 06/23/17 05:00 INR 1.00 (0.5-1.4) 06/23/17 05:00 PTT (Actin FS) 19.5 SECONDS (26.0-38.0) L 06/23/17 05:00 Specimen Source Arterial 06/25/17 07:55 Sample Site Right Radial 06/25/17 07:55 pH 7.51 (7.35-7.45) H 06/25/17 07:55 pCO2 40.0 mmHg (35.0-45.0) 06/25/17 07:55 pO2 47.0 mmHg (80.0-100.0) L* 06/25/17 07:55 HCO3 31.1 mEq/L (20.0-26.0) H 06/25/17 07:55 Base Excess 8.2 mEq/L (-3.0-3.0) H 06/25/17 07:55 O2 Saturation 87.0 % (92.0-100.0) L 06/25/17 07:55 Endy Test PASS 06/25/17 07:55 Vent Rate NA 06/17/17 16:16 Inspired O2 100 06/25/17 07:55 Tidal Volume NA 06/17/17 16:16 PEEP NA 06/17/17 16:16 Pressure (ins/psv/peep) NA 06/17/17 16:16 Critical Value PW 06/25/17 07:55 Sodium 142 mEq/L (136-145) 06/25/17 05:20 Potassium 3.3 mEq/L (3.5-5.1) L 06/25/17 05:20 Chloride 108 mEq/L (98-107) H 06/25/17 05:20 Carbon Dioxide 28.2 mEq/L (21.0-31.0) 06/25/17 05:20 Anion Gap 9.1 (7.0-16.0) 06/25/17 05:20 BUN 20 mg/dL (7-25) 06/25/17 05:20 Creatinine 0.2 mg/dL (0.7-1.3) L 06/25/17 05:20 Est GFR ( Amer) > 60.0 ml/min (>90) 06/25/17 05:20 Est GFR (Non-Af Amer) > 60.0 ml/min 06/25/17 05:20 BUN/Creatinine Ratio 100.0 06/25/17 05:20 Glucose 277 mg/dL (70-105) H 06/25/17 05:20 POC Glucose 124 MG/DL (70 - 105) H 06/14/17 05:50 Hemoglobin A1c % 5.1 % (4.0-6.0) 06/01/17 05:30 Whole Bld Lactic Acid 3.45 mmol/L (0.60-1.99) H* 06/03/17 06:45 Calcium 7.6 mg/dL (8.6-10.3) L 06/25/17 05:20 Magnesium 1.9 mg/dL (1.9-2.7) 06/25/17 05:20 Total Bilirubin 0.4 mg/dL (0.3-1.0) 06/25/17 05:20 AST 17 U/L (13-39) 06/25/17 05:20 ALT 62 U/L (7-52) H 06/25/17 05:20 Alkaline Phosphatase 62 U/L (34-104) 06/25/17 05:20 Ammonia 54 umol/L (16-53) H 06/20/17 18:05 B-Natriuretic Peptide 129.0 pg/mL (5.0-100.0) H 06/04/17 06:45 Total Protein 4.0 gm/dL (6.0-8.3) L 06/25/17 05:20 Albumin 1.9 gm/dL (4.2-5.5) L 06/25/17 05:20 Globulin 2.1 gm/dL 06/25/17 05:20 Albumin/Globulin Ratio 0.9 (1.0-1.8) L 06/25/17 05:20 TSH 0.72 uIU/ml (0.34-5.60) 06/01/17 05:30 Urine Source CATH 05/31/17 12:35 Urine Color YELLOW 05/31/17 12:35 Urine Clarity CLOUDY (CLEAR) 05/31/17 12:35 Urine pH 8.5 (4.6 - 8.0) 05/31/17 12:35 Ur Specific [place] 1.010 (1.005-1.030) 05/31/17 12:35 Urine Protein 30 mg/dL (NEGATIVE) H 05/31/17 12:35 Urine Glucose (UA) NEGATIVE mg/dL (NEGATIVE) 05/31/17 12:35 Urine Ketones NEGATIVE mg/dL (NEGATIVE) 05/31/17 12:35 Urine Blood MODERATE (NEGATIVE) H 05/31/17 12:35 Urine Nitrate NEGATIVE (NEGATIVE) 05/31/17 12:35 Urine Bilirubin NEGATIVE (NEGATIVE) 05/31/17 12:35 Urine Urobilinogen 0.2 E.U./dL (0.2 - 1.0) 05/31/17 12:35 Ur Leukocyte Esterase NEGATIVE (NEGATIVE) 05/31/17 12:35 Urine RBC >100 /hpf (0-5) H 05/31/17 12:35 Urine WBC 2-5 /hpf (0-5) H 05/31/17 12:35 Ur Epithelial Cells NONE SEEN /lpf (FEW) 05/31/17 12:35 Urine Bacteria NONE SEEN /hpf (NONE SEEN) 05/31/17 12:35 Stool Occult Blood NEGATIVE (NEGATIVE) 06/05/17 06:00 Gentamicin Peak 13.8 ug/ml (4.0-8.0) H 06/11/17 11:05 Gentamicin Trough 0.8 ug/ml (0.2-2.0) 06/11/17 08:00 Vancomycin Trough 10.7 ug/mL (10-20) 06/04/17 09:00 Hepatitis A IgM Ab Negative (Negative) 06/10/17 06:20 Hep Bs Antigen Negative (Negative) 06/10/17 06:20 Hep B Core IgM Ab Negative (Negative) 06/10/17 06:20 Hepatitis C Antibody 6.9 s/co ratio (0.0-0.9) H 06/10/17 06:20 Influenza A (Rapid) NEG FOR INF A 06/05/17 08:00 Influenza B (Rapid) NEG FOR INF B 06/05/17 08:00 Blood Type O POSITIVE 06/02/17 11:40 Antibody Screen NEGATIVE 06/02/17 11:40 Crossmatch See Detail 06/02/17 11:40 - Physical Exam Vitals and I&O: Vital Signs Temp 98.8 F 06/25/17 11:36 Pulse 94 01/29/18 13:14 Resp 18 06/25/17 11:36 BP 119/65 06/25/17 11:36 Pulse Ox 98 06/25/17 11:36 Intake & Output 06/24/17 06/25/17 06/25/17 18:59 06:59 18:59 Intake Total 520 100 900 Output Total 700 250 400 Balance -180 -150 500 Weight (lbs) 156 lb 4.8 oz 124 lb 6.4 oz 124 lb Intake: Intake, IV Amount 100 100 Piperacillin Sodium/ 100 100 Tazobact 4.5 gm In Sodium Chloride 0.9% 100 ml @ 100 mls/hr IV Q8HR [facility] Rx #:[id number] Tube Feeding 420 700 Other 200 Output: Urine 700 250 Other 400 Other: # Bowel Movements 1 Stool Characteristics Liquid Liquid Brown Active Medications: Current Medications Acetaminophen (Tylenol 650mg Supp) 650 mg RC Q4HR PRN PRN Reason: FEVER >100.1 Stop: 07/30/17 13:39 Acetylcysteine (Mucomyst 20%) 3 ml HHN Q4HRT [facility] Stop: 08/22/17 18:59 Last Admin: 06/25/17 11:36 Dose: 3 ml Albuterol Sulfate (Albuterol 2.5mg/3ml Neb Ud) 1.25 mg HHN Q4HRT [facility] Stop: 08/06/17 18:59 Last Admin: 06/25/17 11:34 Dose: 1.25 mg Ascorbic Acid (Vitamin C) 500 mg GT DAILY [facility] Stop: 07/31/17 08:59 Last Admin: 06/25/17 10:39 Dose: 500 mg Bisacodyl (Dulcolax 10 Mg Supp) 10 mg RC Q72HR PRN PRN Reason: Constipation Stop: 07/30/17 13:39 Enochs Oil/[place]ian Balsam/Trypsin (Venelex) 1 appl TP DAILY [facility] Stop: 08/15/17 08:59 Last Admin: 06/25/17 10:40 Dose: 1 appl Cholecalciferol (Vitamin D3) 500 iu PO DAILY [facility] Stop: 07/31/17 08:59 Last Admin: 06/25/17 10:39 Dose: 500 iu Diltiazem HCl (Cardizem) 20 mg IVP Q4H PRN PRN Reason: HR Greater than 130 per min Stop: 08/19/17 17:40 Diltiazem HCl (Cardizem) 60 mg PO Q6HR [facility] Stop: 08/19/17 17:59 Last Admin: 06/25/17 13:14 Dose: 60 mg Famotidine (Pepcid) 20 mg PO BID [facility] Stop: 08/19/17 16:59 Last Admin: 06/25/17 10:39 Dose: 20 mg Guaifenesin (Robitussin) 200 mg PO Q4HR PRN PRN Reason: Cough or Congestion Stop: 07/30/17 13:41 Last Admin: 06/10/17 20:59 Dose: 200 mg Norepinephrine Bitartrate 4 mg (/ Dextrose) 254 mls @ 30.48 mls/hr IV TITR PRN ; Protocol; 8 MCG/MIN PRN Reason: BP MAINTENANCE (PER PROTOCOL) Stop: 07/31/17 16:46 Last Titration: 06/03/17 00:00 Dose: 0 mcg/min, 0 mls/hr Cefepime HCl 1 gm/ Dextrose 50 mls @ 100 mls/hr IV Q12HR [facility] Stop: 08/24/17 12:59 Ipratropium [place] (Atrovent Neb 0.5mg/2.5ml) 0.5 mg HHN Q4HRT [facility] Stop: 08/06/17 18:59 Last Admin: 06/25/17 11:34 Dose: 0.5 mg Lactulose (Cephulac) 30 gm PO BID [facility] Stop: 08/03/17 16:59 Last Admin: 06/25/17 10:40 Dose: 30 gm Lorazepam (Ativan) 0.5 mg IVP Q8HR PRN; Protocol PRN Reason: Agitation Stop: 08/14/17 14:52 Last Admin: 06/16/17 00:52 Dose: 0.5 mg Methylprednisolone Sodium Succinate (Solu-Medrol) 60 mg IVP Q8HR [facility] Stop: 08/24/17 12:59 Last Admin: 06/25/17 13:13 Dose: 60 mg Metoclopramide HCl (Reglan) 5 mg PO TID [facility] Stop: 08/16/17 13:59 Last Admin: 06/25/17 13:12 Dose: 5 mg Midodrine (Proamatine) 5 mg PO TID [facility] Stop: 08/10/17 20:59 Last Admin: 06/25/17 13:14 Dose: 5 mg Miscellaneous (Vte Chemical Prophylaxis Screen/ Admission) 1 ea MC PRN PRN PRN Reason: PROTOCOL Stop: 07/31/17 14:00 Miscellaneous (Probiotic Screen) 1 ea MC PRN PRN PRN Reason: PROTOCOL Stop: 07/31/17 16:02 Morphine Sulfate (Morphine) 2 mg IVP Q4HR PRN PRN Reason: Pain (Moderate) Stop: 08/13/17 10:37 Last Admin: 06/21/17 13:39 Dose: 2 mg Multivitamins/Vitamin C (Theragran) 1 tab GT DAILY [facility] Stop: 07/31/17 08:59 Last Admin: 06/25/17 10:39 Dose: 1 tab Ondansetron HCl (Zofran) 4 mg IV Q8H PRN PRN Reason: Nausea / Vomiting Stop: 07/30/17 13:41 Sodium Phosphate (Fleet Enema) 133 ml RC DAILY PRN PRN Reason: Constipation Stop: 07/30/17 13:39 General: weak, congested HEENT: NC/AT, PERRLA Neck: No LAD, deformity Lungs: congested, rales, ronchi Cardiovascular: RRR, Normal S1, Normal S2, without murmur Abdomen: soft, non-tender, non-distended, +GT, positive bowel sound Extremities: excoriation, ecchymosis, contracture, deformity, atrophy Neurological: unable to follow command - Procedures Procedures: Procedures Procedure Code Date INSERT EMERGENCY AIRWAY 46675 05/31/17 INSERTION OF ENDOTRACHEAL AIRWAY INTO [place]HE[place], VIA OPENING [id number] 05/31/17 RESPIRATORY VENTILATION, GREATER THAN 96 CONSECUTIVE HOURS [id number] 05/31/17 VENT MGMT INPAT INIT DAY 28915 05/31/17 Internal Medicine Assmt/Plan - Assessment Assessment: S/p cardiopulmonary arrest s/p extubation Multilobar PNA lactic acidosis Acute Respiratory Failure Sepsis PNA leukocytosis hypokalemia acute renal insufficiency spastic quadriplegia seizures s/p colostomy s/p wound debridement DNR STATUS - Plan Plan: will add artificial tears to prevent from eye dryness while on bipap continuous pillowcase cutter arranging placement suction patient has needed aspiration precautions inhalation treatments empiric ivantibiotics pulmo follow up continue current plan of care Nutritional Asmnt/Malnutr-PDOC - Dietary Evaluation Malnutrition Findings (Please click <Entered> for more info): Nutritional Asmnt/Malnutrition Start: 06/01/17 17: 31 Text: Status: Complete Freq: Document 06/01/17 17:31 JOSELING (Rec: 06/01/17 17:45 [email or web address] [email or web address]) Nutritional Asmnt/Malnutrition Patient General Information Nutritional Screening High Risk Consult Diagnosis renal failure, prespiratory failure r/o PNA Pertinent Medical Hx/Surgical Hx dementia, MR anemia, spastic quadriplegia, cerebral palsy, seizure, aspiration PNA, s/p respiratory failure, spsis, hyponatremia, gastroenteritis, PEG Subjective Information Consult received for Anibal 13 and pressure ulcer. Pt seen resting in bed at the time of visit, intubated, non-verbal noted. TF not running at this time. Current Diet Order/ Nutrition Support Isosource 1.5 87ml/hr x 17hr Pertinent Medications vitamin C, vitamin D3, D5w, teragran, piperacillin, miralax, cancomycin Pertinent Labs 06/01 na 160, Cl 120, K 4.1, BUN 29, Cr 0.3, Glucose 242, A1c 5.1, Ca 8.4, Mg 2.8 Nutritional Hx/Data Height 5 ft 6 in Height (Calculated Centimeters) 167.6 Current Weight (lbs) 105 lb 8 oz Weight (Calculated Kilograms) 47.9 Weight (Calculated Grams) 45023.0 [place] Body Weight 142 % [place] Body Weight 94 Body Mass Index (BMI) 17.0 Weight Status Underweight GI Symptoms GI Symptoms None Last BM none Difficult in: None Usual diet at home Jevity 1.5 87ml/hr x 17hr Skin Integrity/Comment: decubitus ulceration to sacrum Estimated Nutritional Goals Calories/Kcals/Kg 25-30 Kcals Calculated 2520-9199 based on IBW 65kg Protein g/k.2-1.4 Protein Calculated 78-91 consider respiratory failure and skin probelm Nutritional Problem 1. Problem Problem excessive intake from enteral feeding Etiology current TF regimen providing excessive calorie and protein than estimated nutritional needs Signs/Symptoms: current TF providing 114% of calorie needs and 110% of protein needs Malnutrition Alert Protein-Calorie Malnutrition N/A Is there a minimum of two criteria No selected? Query Text:Check all the applicable criteria. A minimum of two criteria are recommended for diagnosis of either severe or non-severe malnutrition. Intervention/Recommendation Comments 1. Recommend modify TF rate to 70ml/hr x 17hr to meet 100% of nutritional needs and avoid overfeeding. 2. Monitor TF rate, tolerance, wt weekly, skin integrity and labs 3. F/U as moderate risk in 3-5 days, 04/25-04/27 Expected Outcomes/Goals Expected Outcomes/Goals 1. Pt to meet 75-100% of nutritional needs via nutrition support with tolerance 2. 2. Wt stability, skin to remain intact, labs to approach WNL.
[2017-06-25 13:22] LABS: INR 0.91 (0.5-1.4); PROTHROMBIN TIME (TEST) 9.5 SECONDS (9.5-11.5)
[2017-06-25 13:35] LABS: DDIMER QUANT 953 ng/mL (100-400)
[2017-06-26] MEDS: Diltiazem 30 mg Tab PO SCH ×5 (00:57→17:45)
[2017-06-26] MEDS: Ipratropium Neb 0.5 mg/2.5 mL UD HHN SCH ×6 (02:49→22:30)
[2017-06-26] MEDS: Albuterol Nebulizer 2.5mg/3mL HHN SCH ×6 (02:49→22:30)
[2017-06-26 06:33] LABS: HEMATOCRIT 27.1 % (41.0-60); MEAN CELL VOLUME 90.8 fl (80-99); MEAN CORPUSCULAR HEMOGLOBIN 30.1 pg (26.0-30.0); MEAN CORPUSCULAR HGB CONC 33.1 pg (28.0-36.0); RED BLOOD COUNT 2.98 Mil/cmm (4.30-5.70); RED CELL DISTRIBUTION WIDTH 17.2 % (11.5-20.0)
[2017-06-26 06:47] LABS: ALB/GLOB RATIO 0.9 (1.0-1.8); ALBUMIN 2.1 gm/dL (4.2-5.5); ALKALINE PHOSPHATASE 63 U/L (34-104); ANION GAP 10.8 (7.0-16.0); BILIRUBIN,TOTAL 0.4 mg/dL (0.3-1.0); BUN - UREA NITROGEN 28 mg/dL (7-25); CALCIUM SERUM 8.3 mg/dL (8.6-10.3); CHLORIDE 111 mEq/L (98-107); CREATININE - SERUM 0.2 mg/dL (0.7-1.3); GFR AFRICAN-AMERICAN > 60.0 ml/min (>90); GFR NON AFRICAN-AMERICAN > 60.0 ml/min; GLUCOSE 187 mg/dL (70-105); MAGNESIUM 2.1 mg/dL (1.9-2.7); POTASSIUM SERUM 3.8 mEq/L (3.5-5.1); SGOT 23 U/L (13-39); SGPT/ALT 63 U/L (7-52); SODIUM SERUM 146 mEq/L (136-145); TOTAL PROTEIN,SERUM 4.4 gm/dL (6.0-8.3)
[2017-06-26 07:38] LABS: PLATELET COUNT 24 Th/cmm (150-400); WHITE BLOOD COUNT 2.3 Th/cmm (4.8-10.8)
[2017-06-26 08:08] LABS: TOTAL CELLS COUNTED 100
[2017-06-26 08:10] LABS: BAND NEUTROPHILE 14 % (0-10); LYMPHOCYTE 5 % (20-50); MONOCYTE 3 % (2-10); NEUTROPHILS 78 % (40-80)
[2017-06-26 08:11] LABS: PLATELET ESTIMATE DECREASED PLATELETS (NORMAL)
--- NOTE | 2017-06-26 08:28 | Diagnostic Imaging Report ---
CHEST X-RAY: AP view INDICATION: Shortness of breath COMPARISON: Chest x-ray 06/25/2017 FINDINGS: Severe emphysematous lung changes are seen with bilateral mid to lower lung zone infiltrates. There may be a small left effusion. Heart size normal. No evidence of pneumothorax. IMPRESSION: Severe emphysematous lung changes with bilateral mid to lower lung zone infiltrates, follow-up recommended.
[2017-06-26 09:06] LABS: pH 7.56 (7.35-7.45)
[2017-06-26 09:07] LABS: ALLEN TEST Positive
[2017-06-26] MEDS: Lactulose 10 Gm/15 mL 30mL UDC PO SCH ×2 (09:57→17:44)
[2017-06-26] MEDS: Multivitamin Tab GT SCH (09:57)
[2017-06-26] MEDS: Venelex 60gm Tube TP SCH (10:06)
--- NOTE | 2017-06-26 15:14 | Internal Medicine Prog Note ---
Internal Medicine Subjective - Subjective Service Date: 06/26/17 Patient seen and examined:: with staff Patient is:: awake, non-verbal, non-interactive, in bed Patient Complaints of:: congestion Per staff patient has:: no adverse event, tolerating meds Internal Medicine Objective - Results Result Diagrams: 06/26/17 06:05 06/26/17 06:05 Recent Labs: Laboratory Last Values WBC 2.3 Th/cmm (4.8-10.8) L* 06/26/17 06:05 RBC 2.98 Mil/cmm (4.30-5.70) L 06/26/17 06:05 Hgb 9.0 gm/dL (12-16) L 06/26/17 06:05 Hct 27.1 % (41.0-60) L 06/26/17 06:05 MCV 90.8 fl (80-99) 06/26/17 06:05 MCH 30.1 pg (26.0-30.0) H 06/26/17 06:05 MCHC Differential 33.1 pg (28.0-36.0) 06/26/17 06:05 RDW 17.2 % (11.5-20.0) 06/26/17 06:05 Plt Count 24 Th/cmm (150-400) L* 06/26/17 06:05 MPV 8.0 fl 06/26/17 06:05 Neutrophils % [employer] 06/25/17 05:20 Band Neutrophils % 14 % (0-10) H 06/26/17 06:05 Lymphocytes % [employer] 06/25/17 05:20 Monocytes % [employer] 06/25/17 05:20 Eosinophils % [employer] 06/25/17 05:20 Basophils % [employer] 06/25/17 05:20 Neutrophils (Manual) 78 % (40-80) 06/26/17 06:05 Lymphocytes 5 % (20-50) L 06/26/17 06:05 Monocytes 3 % (2-10) 06/26/17 06:05 Eosinophils 1 % (0-5) 06/16/17 04:25 Metamyelocytes 2 % (0-0) H 06/23/17 05:00 Myelocytes 1 % 06/23/17 05:00 Hypochromia 1+ 06/23/17 05:00 Platelet Estimate DECREASED PLATELETS (NORMAL) 06/26/17 06:05 Anisocytosis 1+ 06/23/17 05:00 Plt Count TNP 06/25/17 05:20 PT 9.5 SECONDS (9.5-11.5) 06/25/17 05:20 INR 0.91 (0.5-1.4) 06/25/17 05:20 PTT (Actin FS) 28.6 SECONDS (26.0-38.0) 06/25/17 05:20 Fibrinogen 256.0 mg/dL (200.0-400.0) 06/25/17 05:20 D-Dimer 953 ng/mL (100-400) H 06/25/17 05:20 Specimen Source Arterial 06/26/17 08:54 Sample Site RB 06/26/17 08:54 pH 7.56 (7.35-7.45) H* 06/26/17 08:54 pCO2 34.0 mmHg (35.0-45.0) L 06/26/17 08:54 pO2 60.0 mmHg (80.0-100.0) L 06/26/17 08:54 HCO3 31.1 mEq/L (20.0-26.0) H 06/26/17 08:54 Base Excess 8.0 mEq/L (-3.0-3.0) H 06/26/17 08:54 O2 Saturation 94.0 % (92.0-100.0) 06/26/17 08:54 Endy Test Positive 06/26/17 08:54 Vent Rate 12 06/26/17 08:54 Inspired O2 60 06/26/17 08:54 Tidal Volume N/A 06/26/17 08:54 PEEP N/A 06/26/17 08:54 Pressure (ins/psv/peep) N/A 06/26/17 08:54 Critical Value DM 06/26/17 08:54 Sodium 146 mEq/L (136-145) H 06/26/17 06:05 Potassium 3.8 mEq/L (3.5-5.1) 06/26/17 06:05 Chloride 111 mEq/L (98-107) H 06/26/17 06:05 Carbon Dioxide 28.0 mEq/L (21.0-31.0) 06/26/17 06:05 Anion Gap 10.8 (7.0-16.0) 06/26/17 06:05 BUN 28 mg/dL (7-25) H 06/26/17 06:05 Creatinine 0.2 mg/dL (0.7-1.3) L 06/26/17 06:05 Est GFR ( Amer) > 60.0 ml/min (>90) 06/26/17 06:05 Est GFR (Non-Af Amer) > 60.0 ml/min 06/26/17 06:05 BUN/Creatinine Ratio 140.0 06/26/17 06:05 Glucose 187 mg/dL (70-105) H 06/26/17 06:05 POC Glucose 124 MG/DL (70 - 105) H 06/14/17 05:50 Hemoglobin A1c % 5.1 % (4.0-6.0) 06/01/17 05:30 Whole Bld Lactic Acid 3.45 mmol/L (0.60-1.99) H* 06/03/17 06:45 Calcium 8.3 mg/dL (8.6-10.3) L 06/26/17 06:05 Magnesium 2.1 mg/dL (1.9-2.7) 06/26/17 06:05 Total Bilirubin 0.4 mg/dL (0.3-1.0) 06/26/17 06:05 AST 23 U/L (13-39) 06/26/17 06:05 ALT 63 U/L (7-52) H 06/26/17 06:05 Alkaline Phosphatase 63 U/L (34-104) 06/26/17 06:05 Ammonia 54 umol/L (16-53) H 06/20/17 18:05 B-Natriuretic Peptide 22.1 pg/mL (5.0-100.0) 06/26/17 06:05 Total Protein 4.4 gm/dL (6.0-8.3) L 06/26/17 06:05 Albumin 2.1 gm/dL (4.2-5.5) L 06/26/17 06:05 Globulin 2.3 gm/dL 06/26/17 06:05 Albumin/Globulin Ratio 0.9 (1.0-1.8) L 06/26/17 06:05 TSH 0.72 uIU/ml (0.34-5.60) 06/01/17 05:30 Urine Source CATH 05/31/17 12:35 Urine Color YELLOW 05/31/17 12:35 Urine Clarity CLOUDY (CLEAR) 05/31/17 12:35 Urine pH 8.5 (4.6 - 8.0) 05/31/17 12:35 Ur Specific [place] 1.010 (1.005-1.030) 05/31/17 12:35 Urine Protein 30 mg/dL (NEGATIVE) H 05/31/17 12:35 Urine Glucose (UA) NEGATIVE mg/dL (NEGATIVE) 05/31/17 12:35 Urine Ketones NEGATIVE mg/dL (NEGATIVE) 05/31/17 12:35 Urine Blood MODERATE (NEGATIVE) H 05/31/17 12:35 Urine Nitrate NEGATIVE (NEGATIVE) 05/31/17 12:35 Urine Bilirubin NEGATIVE (NEGATIVE) 05/31/17 12:35 Urine Urobilinogen 0.2 E.U./dL (0.2 - 1.0) 05/31/17 12:35 Ur Leukocyte Esterase NEGATIVE (NEGATIVE) 05/31/17 12:35 Urine RBC >100 /hpf (0-5) H 05/31/17 12:35 Urine WBC 2-5 /hpf (0-5) H 05/31/17 12:35 Ur Epithelial Cells NONE SEEN /lpf (FEW) 05/31/17 12:35 Urine Bacteria NONE SEEN /hpf (NONE SEEN) 05/31/17 12:35 Stool Occult Blood NEGATIVE (NEGATIVE) 06/05/17 06:00 Gentamicin Peak 13.8 ug/ml (4.0-8.0) H 06/11/17 11:05 Gentamicin Trough 0.8 ug/ml (0.2-2.0) 06/11/17 08:00 Vancomycin Trough 10.7 ug/mL (10-20) 06/04/17 09:00 Hepatitis A IgM Ab Negative (Negative) 06/10/17 06:20 Hep Bs Antigen Negative (Negative) 06/10/17 06:20 Hep B Core IgM Ab Negative (Negative) 06/10/17 06:20 Hepatitis C Antibody 6.9 s/co ratio (0.0-0.9) H 06/10/17 06:20 Influenza A (Rapid) NEG FOR INF A 06/05/17 08:00 Influenza B (Rapid) NEG FOR INF B 06/05/17 08:00 Blood Type O POSITIVE 06/02/17 11:40 Antibody Screen NEGATIVE 06/02/17 11:40 Crossmatch See Detail 06/02/17 11:40 - Physical Exam Vitals and I&O: Vital Signs Temp 97.6 F 06/26/17 11:37 Pulse 85 06/26/17 13:33 Resp 20 06/26/17 12:00 BP 118/62 06/26/17 11:37 Pulse Ox 92 06/26/17 11:50 Intake & Output 06/25/17 06/26/17 06/26/17 18:59 06:59 18:59 Intake Total 1492 750 Output Total 1125 350 Balance 367 400 Weight (lbs) 150 lb 11.2 oz 151 lb Intake: Intake, IV Amount 50 50 Cefepime 1 gm In Dextrose 50 50 5% 50 ml @ 100 mls/hr IV Q12HR [facility] Rx#:[id number] Oral 0 0 Tube Feeding 1190 700 Other 252 Output: Urine 525 350 Other 600 Other: Stool Characteristics Liquid Liquid Liquid Brown Brown Brown Active Medications: Current Medications Acetaminophen (Tylenol 650mg Supp) 650 mg RC Q4HR PRN PRN Reason: FEVER >100.1 Stop: 07/30/17 13:39 Acetylcysteine (Mucomyst 20%) 3 ml HHN Q4HRT [facility] Stop: 08/22/17 18:59 Last Admin: 06/26/17 11:51 Dose: Not Given Albuterol Sulfate (Albuterol 2.5mg/3ml Neb Ud) 1.25 mg HHN Q4HRT [facility] Stop: 08/06/17 18:59 Last Admin: 06/26/17 11:50 Dose: 1.25 mg Ascorbic Acid (Vitamin C) 500 mg GT DAILY [facility] Stop: 07/31/17 08:59 Last Admin: 06/26/17 09:57 Dose: 500 mg Bisacodyl (Dulcolax 10 Mg Supp) 10 mg RC Q72HR PRN PRN Reason: Constipation Stop: 07/30/17 13:39 [place] Oil/[place] Balsam/Trypsin (Venelex) 1 appl TP DAILY [facility] Stop: 08/15/17 08:59 Last Admin: 06/26/17 10:06 Dose: 1 appl Cholecalciferol (Vitamin D3) 500 iu PO DAILY [facility] Stop: 07/31/17 08:59 Last Admin: 06/26/17 09:56 Dose: 500 iu Diltiazem HCl (Cardizem) 20 mg IVP Q4H PRN PRN Reason: HR Greater than 130 per min Stop: 08/19/17 17:40 Diltiazem HCl (Cardizem) 60 mg PO Q6HR [facility] Stop: 08/19/17 17:59 Last Admin: 06/26/17 13:33 Dose: 60 mg Famotidine (Pepcid) 20 mg PO BID [facility] Stop: 08/19/17 16:59 Last Admin: 06/26/17 09:57 Dose: 20 mg Guaifenesin (Robitussin) 200 mg PO Q4HR PRN PRN Reason: Cough or Congestion Stop: 07/30/17 13:41 Last Admin: 06/10/17 20:59 Dose: 200 mg Norepinephrine Bitartrate 4 mg (/ Dextrose) 254 mls @ 30.48 mls/hr IV TITR PRN ; Protocol; 8 MCG/MIN PRN Reason: BP MAINTENANCE (PER PROTOCOL) Stop: 07/31/17 16:46 Last Titration: 06/03/17 00:00 Dose: 0 mcg/min, 0 mls/hr Cefepime HCl 1 gm/ Dextrose 50 mls @ 100 mls/hr IV Q12HR [facility] Stop: 08/24/17 12:59 Last Admin: 06/26/17 09:55 Dose: 100 mls/hr Ipratropium [place] (Atrovent Neb 0.5mg/2.5ml) 0.5 mg HHN Q4HRT [facility] Stop: 08/06/17 18:59 Last Admin: 06/26/17 11:50 Dose: 0.5 mg Lactulose (Cephulac) 30 gm PO BID [facility] Stop: 08/03/17 16:59 Last Admin: 06/26/17 09:57 Dose: 30 gm Lorazepam (Ativan) 0.5 mg IVP Q8HR PRN; Protocol PRN Reason: Agitation Stop: 08/14/17 14:52 Last Admin: 06/16/17 00:52 Dose: 0.5 mg Methylprednisolone Sodium Succinate (Solu-Medrol) 60 mg IVP Q8HR [facility] Stop: 08/24/17 12:59 Last Admin: 06/26/17 13:33 Dose: 60 mg Metoclopramide HCl (Reglan) 5 mg PO TID [facility] Stop: 08/16/17 13:59 Last Admin: 06/26/17 13:32 Dose: 5 mg Midodrine (Proamatine) 5 mg PO TID [facility] Stop: 08/10/17 20:59 Last Admin: 06/26/17 13:33 Dose: 5 mg Miscellaneous (Vte Chemical Prophylaxis Screen/ Admission) 1 ea PRN PRN PRN Reason: PROTOCOL Stop: 07/31/17 14:00 Miscellaneous (Probiotic Screen) 1 ea PRN PRN PRN Reason: PROTOCOL Stop: 07/31/17 16:02 Morphine Sulfate (Morphine) 2 mg IVP Q4HR PRN PRN Reason: Pain (Moderate) Stop: 08/13/17 10:37 Last Admin: 06/21/17 13:39 Dose: 2 mg Multivitamins/Vitamin C (Theragran) 1 tab GT DAILY [facility] Stop: 07/31/17 08:59 Last Admin: 06/26/17 09:57 Dose: 1 tab Ondansetron HCl (Zofran) 4 mg IV Q8H PRN PRN Reason: Nausea / Vomiting Stop: 07/30/17 13:41 Sodium Phosphate (Fleet Enema) 133 ml RC DAILY PRN PRN Reason: Constipation Stop: 07/30/17 13:39 General: weak, congested HEENT: NC/AT, PERRLA Neck: No LAD, deformity Lungs: congested, rales, ronchi Cardiovascular: RRR, Normal S1, Normal S2, without murmur Abdomen: soft, non-tender, non-distended, +GT, positive bowel sound Extremities: excoriation, ecchymosis, contracture, deformity, atrophy Neurological: unable to follow command - Procedures Procedures: Procedures Procedure Code Date INSERT EMERGENCY AIRWAY 86823 05/31/17 INSERTION OF ENDOTRACHEAL AIRWAY INTO [place], VIA OPENING [id number] 05/31/17 RESPIRATORY VENTILATION, GREATER THAN 96 CONSECUTIVE HOURS [id number] 05/31/17 VENT MGMT INPAT INIT DAY 54791 05/31/17 Internal Medicine Assmt/Plan - Assessment Assessment: S/p cardiopulmonary arrest s/p extubation Multilobar PNA lactic acidosis Acute Respiratory Failure Sepsis PNA leukocytosis hypokalemia acute renal insufficiency spastic quadriplegia seizures s/p colostomy s/p wound debridement DNR STATUS - Plan Plan: housing case manager arranging placement suction patient has needed aspiration precautions inhalation treatments empiric ivantibiotics pulmo follow up continue current plan of care Nutritional Asmnt/Malnutr-PDOC - Dietary Evaluation Malnutrition Findings (Please click <Entered> for more info): Nutritional Asmnt/Malnutrition Start: 06/01/17 17: 31 Text: Status: Complete Freq: Document 06/01/17 17:31 [facility] (Rec: 06/01/17 17:45 [facility] [id number]) Nutritional Asmnt/Malnutrition Patient General Information Nutritional Screening High Risk Consult Diagnosis renal failure, prespiratory failure r/o PNA Pertinent Medical Hx/Surgical Hx dementia, MR anemia, spastic quadriplegia, cerebral palsy, seizure, aspiration PNA, s/p respiratory failure, spsis, hyponatremia, gastroenteritis, PEG Subjective Information Consult received for Anibal 13 and pressure ulcer. Pt seen resting in bed at the time of visit, intubated, non-verbal noted. TF not running at this time. Current Diet Order/ Nutrition Support Isosource 1.5 87ml/hr x 17hr Pertinent Medications vitamin C, vitamin D3, D5w, teragran, piperacillin, miralax, cancomycin Pertinent Labs 1/5 na 160, Cl 120, K 4.1, BUN 29, Cr 0.3, Glucose 242, A1c 5.1, Ca 8.4, Mg 2.8 Nutritional Hx/Data Height 5 ft 6 in Height (Calculated Centimeters) 167.6 Current Weight (lbs) 105 lb 8 oz Weight (Calculated Kilograms) 47.9 Weight (Calculated Grams) 58031.0 [place] Body Weight 142 % [place] Body Weight 94 Body Mass Index (BMI) 17.0 Weight Status Underweight GI Symptoms GI Symptoms None Last BM none Difficult in: None Usual diet at home Jevity 1.5 87ml/hr x 17hr Skin Integrity/Comment: decubitus ulceration to sacrum Estimated Nutritional Goals Calories/Kcals/Kg 25-30 Kcals Calculated 6940-1309 based on IBW 65kg Protein g/k.2-1.4 Protein Calculated 78-91 consider respiratory failure and skin probelm Nutritional Problem 1. Problem Problem excessive intake from enteral feeding Etiology current TF regimen providing excessive calorie and protein than estimated nutritional needs Signs/Symptoms: current TF providing 114% of calorie needs and 110% of protein needs Malnutrition Alert Protein-Calorie Malnutrition N/A Is there a minimum of two criteria No selected? Query Text:Check all the applicable criteria. A minimum of two criteria are recommended for diagnosis of either severe or non-severe malnutrition. Intervention/Recommendation Comments 1. Recommend modify TF rate to 70ml/hr x 17hr to meet 100% of nutritional needs and avoid overfeeding. 2. Monitor TF rate, tolerance, wt weekly, skin integrity and labs 3. F/U as moderate risk in 3-5 days, 04/25-04/27 Expected Outcomes/Goals Expected Outcomes/Goals 1. Pt to meet 75-100% of nutritional needs via nutrition support with tolerance 2. 2. Wt stability, skin to remain intact, labs to approach WNL.
--- NOTE | 2017-06-26 22:46 | Consultation ---
DATE OF CONSULTATION: 06/26/2017 HEMATOLOGY ONCOLOGY CONSULTATION REFERRING PHYSICIAN: Dr. Stephens. REASON FOR CONSULTATION: Pancytopenia. HISTORY OF PRESENT ILLNESS: The patient is a 52-year-old male who is mentally challenged with quadriplegia. The patient had been admitted with urosepsis and was treated with vancomycin and Zosyn. Vancomycin was discontinued and the patient had progressive pancytopenia, therefore, I was asked to evaluate. MEDICAL HISTORY: Mentally challenged, dementia, spastic quadriplegia, cerebral palsy, seizure disorder, aspiration pneumonia, status post respiratory failure, sepsis, history of hyponatremia, and gastroenteritis. SOCIAL HISTORY: Resident of a nursing facility. PAST SURGICAL HISTORY: Gastric tube placement. PHYSICAL EXAMINATION: GENERAL: The patient is awake and noncommunicative, on Ventimask. ABDOMEN: Soft. Ecchymosis and hematomas on the lower abdomen and low midline cervical incision, healed, no active bleeding. Right arm PICC line, Hobbs catheter, urine is clear. No hematuria. LABORATORY DATA: White count 2.3, hemoglobin 9, platelets 24. B12 level is 1637. Folic acid 18.1. Review of the complete record show that the patient had normal white count and platelet count early on admission. ASSESSMENT: Pancytopenia secondary to bone marrow suppression by sepsis and antibiotics. I will administer Neupogen 1 dose and transfuse platelets because of the ecchymosis and hematomas on the lower abdomen and follow the DIC panel. No changes in medications are required. The patient is currently on cefepime and vancomycin seems to be discontinued. Thank you, Dr. Stephens for the opportunity to participate in the care of this interesting case for you. JOB# [id number]
[2017-06-27] MEDS: Diltiazem 30 mg Tab PO SCH ×4 (00:45→17:21)
[2017-06-27] MEDS: Albuterol Nebulizer 2.5mg/3mL HHN SCH ×6 (02:33→23:08)
[2017-06-27] MEDS: Ipratropium Neb 0.5 mg/2.5 mL UD HHN SCH ×6 (02:33→23:08)
[2017-06-27 05:17] LABS: MEAN CELL VOLUME 89.8 fl (80-99); MEAN CORPUSCULAR HEMOGLOBIN 30.2 pg (26.0-30.0); MEAN CORPUSCULAR HGB CONC 33.7 pg (28.0-36.0); MEAN PLATELET VOLUME 6.8 fl; RED BLOOD COUNT 2.58 Mil/cmm (4.30-5.70); RED CELL DISTRIBUTION WIDTH 17.2 % (11.5-20.0)
[2017-06-27 05:28] LABS: HEMATOCRIT 23.1 % (41.0-60); HEMOGLOBIN 7.8 gm/dL (12-16); PLATELET COUNT 30 Th/cmm (150-400); WHITE BLOOD COUNT 1.4 Th/cmm (4.8-10.8)
[2017-06-27 05:37] LABS: ANION GAP 10.6 (7.0-16.0); BUN - UREA NITROGEN 37 mg/dL (7-25); CALCIUM SERUM 8.2 mg/dL (8.6-10.3); CARBON DIOXIDE 28.1 mEq/L (21.0-31.0); CHLORIDE 116 mEq/L (98-107); CREATININE - SERUM 0.3 mg/dL (0.7-1.3); GFR AFRICAN-AMERICAN > 60.0 ml/min (>90); GFR NON AFRICAN-AMERICAN > 60.0 ml/min; POTASSIUM SERUM 3.7 mEq/L (3.5-5.1); SODIUM SERUM 151 mEq/L (136-145)
[2017-06-27 05:41] LABS: GLUCOSE 314 mg/dL (70-105); INR 1.05 (0.5-1.4); PROTHROMBIN TIME (TEST) 10.9 SECONDS (9.5-11.5)
[2017-06-27 06:11] LABS: BAND NEUTROPHILE 9 % (0-10); LYMPHOCYTE 15 % (20-50); MONOCYTE 2 % (2-10); NEUTROPHILS 74 % (40-80); TOTAL CELLS COUNTED 100
[2017-06-27 06:12] LABS: PLATELET ESTIMATE DECREASED PLATELETS (NORMAL)
[2017-06-27] MEDS: Lactulose 10 Gm/15 mL 30mL UDC PO SCH ×2 (09:18→17:21)
[2017-06-27] MEDS: Multivitamin Tab GT SCH (09:19)
--- NOTE | 2017-06-27 10:11 | General Progress Note ---
Subjective - Review of Systems Service Date: 06/27/17 Objective - Results Result Diagrams: 06/27/17 05:05 06/27/17 05:05 Recent Labs: Laboratory Last Values WBC 1.4 Th/cmm (4.8-10.8) L* D 06/27/17 05:05 RBC 2.58 Mil/cmm (4.30-5.70) L 06/27/17 05:05 Hgb 7.8 gm/dL (12-16) L* 06/27/17 05:05 Hct 23.1 % (41.0-60) L D 06/27/17 05:05 MCV 89.8 fl (80-99) 06/27/17 05:05 MCH 30.2 pg (26.0-30.0) H 06/27/17 05:05 MCHC Differential 33.7 pg (28.0-36.0) 06/27/17 05:05 RDW 17.2 % (11.5-20.0) 06/27/17 05:05 Plt Count 30 Th/cmm (150-400) L 06/27/17 05:05 MPV 6.8 fl 06/27/17 05:05 Neutrophils % [employer]ODUCTION [employer]TER 06/25/17 05:20 Band Neutrophils % 9 % (0-10) 06/27/17 05:05 Lymphocytes % [employer] C[employer] 06/25/17 05:20 Monocytes % [employer]ODUCTION [employer] CUTTER 06/25/17 05:20 Eosinophils % PRODUCTION [employer] CUTTER 06/25/17 05:20 Basophils % [employer]ODUCTION [employer] CUTTER 06/25/17 05:20 Neutrophils (Manual) 74 % (40-80) 06/27/17 05:05 Lymphocytes 15 % (20-50) L 06/27/17 05:05 Monocytes 2 % (2-10) 06/27/17 05:05 Eosinophils 1 % (0-5) 06/16/17 04:25 Metamyelocytes 2 % (0-0) H 06/23/17 05:00 Myelocytes 1 % 06/23/17 05:00 Hypochromia 1+ 06/23/17 05:00 Platelet Estimate DECREASED PLATELETS (NORMAL) 06/27/17 05:05 Anisocytosis 1+ 06/23/17 05:00 Plt Count 30 Th/cmm (150-750) L 06/27/17 05:05 PT 10.9 SECONDS (9.5-11.5) 06/27/17 05:05 INR 1.05 (0.5-1.4) 06/27/17 05:05 PTT (Actin FS) 22.7 SECONDS (26.0-38.0) L 06/27/17 05:05 Fibrinogen 261.0 mg/dL (200.0-400.0) 06/27/17 05:05 D-Dimer 964 ng/mL (100-400) H 06/27/17 05:05 Specimen Source Arterial 06/26/17 08:54 Sample Site RB 06/26/17 08:54 pH 7.56 (7.35-7.45) H* 06/26/17 08:54 pCO2 34.0 mmHg (35.0-45.0) L 06/26/17 08:54 pO2 60.0 mmHg (80.0-100.0) L 06/26/17 08:54 HCO3 31.1 mEq/L (20.0-26.0) H 06/26/17 08:54 Base Excess 8.0 mEq/L (-3.0-3.0) H 06/26/17 08:54 O2 Saturation 94.0 % (92.0-100.0) 06/26/17 08:54 Endy Test Positive 06/26/17 08:54 Vent Rate 12 06/26/17 08:54 Inspired O2 60 06/26/17 08:54 Tidal Volume N/A 06/26/17 08:54 PEEP N/A 06/26/17 08:54 Pressure (ins/psv/peep) N/A 06/26/17 08:54 Critical Value DM 06/26/17 08:54 Sodium 151 mEq/L (136-145) H 06/27/17 05:05 Potassium 3.7 mEq/L (3.5-5.1) 06/27/17 05:05 Chloride 116 mEq/L (98-107) H 06/27/17 05:05 Carbon Dioxide 28.1 mEq/L (21.0-31.0) 06/27/17 05:05 Anion Gap 10.6 (7.0-16.0) 06/27/17 05:05 BUN 37 mg/dL (7-25) H 06/27/17 05:05 Creatinine 0.3 mg/dL (0.7-1.3) L 06/27/17 05:05 Est GFR ( Amer) > 60.0 ml/min (>90) 06/27/17 05:05 Est GFR (Non-Af Amer) > 60.0 ml/min 06/27/17 05:05 BUN/Creatinine Ratio 123.3 06/27/17 05:05 Glucose 314 mg/dL (70-105) H D 06/27/17 05:05 POC Glucose 124 MG/DL (70 - 105) H 06/14/17 05:50 Hemoglobin A1c % 5.1 % (4.0-6.0) 06/01/17 05:30 Whole Bld Lactic Acid 3.45 mmol/L (0.60-1.99) H* 06/03/17 06:45 Calcium 8.2 mg/dL (8.6-10.3) L 06/27/17 05:05 Magnesium 2.1 mg/dL (1.9-2.7) 06/26/17 06:05 Total Bilirubin 0.4 mg/dL (0.3-1.0) 06/26/17 06:05 AST 23 U/L (13-39) 06/26/17 06:05 ALT 63 U/L (7-52) H 06/26/17 06:05 Alkaline Phosphatase 63 U/L (34-104) 06/26/17 06:05 Ammonia 54 umol/L (16-53) H 06/20/17 18:05 B-Natriuretic Peptide 22.1 pg/mL (5.0-100.0) 06/26/17 06:05 Total Protein 4.4 gm/dL (6.0-8.3) L 06/26/17 06:05 Albumin 2.1 gm/dL (4.2-5.5) L 06/26/17 06:05 Globulin 2.3 gm/dL 06/26/17 06:05 Albumin/Globulin Ratio 0.9 (1.0-1.8) L 06/26/17 06:05 TSH 0.72 uIU/ml (0.34-5.60) 06/01/17 05:30 Urine Source CATH 05/31/17 12:35 Urine Color YELLOW 05/31/17 12:35 Urine Clarity CLOUDY (CLEAR) 05/31/17 12:35 Urine pH 8.5 (4.6 - 8.0) 05/31/17 12:35 Ur Specific [place] 1.010 (1.005-1.030) 05/31/17 12:35 Urine Protein 30 mg/dL (NEGATIVE) H 05/31/17 12:35 Urine Glucose (UA) NEGATIVE mg/dL (NEGATIVE) 05/31/17 12:35 Urine Ketones NEGATIVE mg/dL (NEGATIVE) 05/31/17 12:35 Urine Blood MODERATE (NEGATIVE) H 05/31/17 12:35 Urine Nitrate NEGATIVE (NEGATIVE) 05/31/17 12:35 Urine Bilirubin NEGATIVE (NEGATIVE) 05/31/17 12:35 Urine Urobilinogen 0.2 E.U./dL (0.2 - 1.0) 05/31/17 12:35 Ur Leukocyte Esterase NEGATIVE (NEGATIVE) 05/31/17 12:35 Urine RBC >100 /hpf (0-5) H 05/31/17 12:35 Urine WBC 2-5 /hpf (0-5) H 05/31/17 12:35 Ur Epithelial Cells NONE SEEN /lpf (FEW) 05/31/17 12:35 Urine Bacteria NONE SEEN /hpf (NONE SEEN) 05/31/17 12:35 Stool Occult Blood NEGATIVE (NEGATIVE) 06/05/17 06:00 Gentamicin Peak 13.8 ug/ml (4.0-8.0) H 06/11/17 11:05 Gentamicin Trough 0.8 ug/ml (0.2-2.0) 06/11/17 08:00 Vancomycin Trough 10.7 ug/mL (10-20) 06/04/17 09:00 Hepatitis A IgM Ab Negative (Negative) 06/10/17 06:20 Hep Bs Antigen Negative (Negative) 06/10/17 06:20 Hep B Core IgM Ab Negative (Negative) 06/10/17 06:20 Hepatitis C Antibody 6.9 s/co ratio (0.0-0.9) H 06/10/17 06:20 Influenza A (Rapid) NEG FOR INF A 06/05/17 08:00 Influenza B (Rapid) NEG FOR INF B 06/05/17 08:00 Blood Type O POSITIVE 06/26/17 21:27 Antibody Screen NEGATIVE 06/02/17 11:40 Crossmatch See Detail 06/02/17 11:40 - Physical Exam Vitals and I&O: Vital Signs Temp 98.9 F 06/27/17 04:00 Pulse 103 06/27/17 07:47 Resp 20 06/27/17 07:47 BP 107/57 06/27/17 04:00 Pulse Ox 95 06/27/17 07:47 Intake & Output 06/26/17 06/27/17 06/27/17 18:59 06:59 18:59 Intake Total 1050 1190 Output Total 700 600 Balance 350 590 Weight (lbs) 68.356 kg 56.926 kg Intake: Intake, IV Amount 50 Cefepime 1 gm In Dextrose 50 5% 50 ml @ 100 mls/hr IV Q12HR [facility] Rx#:[id number] Oral 0 Tube Feeding 600 840 TPN/PPN 350 Other 400 Output: Urine 450 600 Other 250 Other: # Bowel Movements 400 Stool Characteristics Liquid Liquid Brown Brown Active Medications: Current Medications Acetaminophen (Tylenol 650mg Supp) 650 mg RC Q4HR PRN PRN Reason: FEVER >100.1 Stop: 07/30/17 13:39 Last Admin: 06/27/17 01:53 Dose: 650 mg Acetylcysteine (Mucomyst 20%) 3 ml HHN Q4HRT [facility] Stop: 08/22/17 18:59 Last Admin: 06/27/17 07:56 Dose: Not Given Albuterol Sulfate (Albuterol 2.5mg/3ml Neb Ud) 1.25 mg HHN Q4HRT [facility] Stop: 08/06/17 18:59 Last Admin: 06/27/17 07:45 Dose: 1.25 mg Ascorbic Acid (Vitamin C) 500 mg GT DAILY [facility] Stop: 07/31/17 08:59 Last Admin: 06/27/17 09:19 Dose: 500 mg Bisacodyl (Dulcolax 10 Mg Supp) 10 mg RC Q72HR PRN PRN Reason: Constipation Stop: 07/30/17 13:39 [place] Oil/[place] Balsam/Trypsin (Venelex) 1 appl TP DAILY [facility] Stop: 08/15/17 08:59 Last Admin: 06/26/17 10:06 Dose: 1 appl Cholecalciferol (Vitamin D3) 500 iu PO DAILY [facility] Stop: 07/31/17 08:59 Last Admin: 06/27/17 09:19 Dose: 500 iu Diltiazem HCl (Cardizem) 20 mg IVP Q4H PRN PRN Reason: HR Greater than 130 per min Stop: 08/19/17 17:40 Diltiazem HCl (Cardizem) 60 mg PO Q6HR [facility] Stop: 08/19/17 17:59 Last Admin: 06/27/17 05:36 Dose: 60 mg Famotidine (Pepcid) 20 mg PO BID [facility] Stop: 08/19/17 16:59 Last Admin: 06/27/17 09:19 Dose: 20 mg Guaifenesin (Robitussin) 200 mg PO Q4HR PRN PRN Reason: Cough or Congestion Stop: 07/30/17 13:41 Last Admin: 06/10/17 20:59 Dose: 200 mg Norepinephrine Bitartrate 4 mg (/ Dextrose) 254 mls @ 30.48 mls/hr IV TITR PRN ; Protocol; 8 MCG/MIN PRN Reason: BP MAINTENANCE (PER PROTOCOL) Stop: 07/31/17 16:46 Last Titration: 06/03/17 00:00 Dose: 0 mcg/min, 0 mls/hr Cefepime HCl 1 gm/ Dextrose 50 mls @ 100 mls/hr IV Q12HR [facility] Stop: 08/24/17 12:59 Last Admin: 06/26/17 21:48 Dose: 100 mls/hr Ipratropium [place] (Atrovent Neb 0.5mg/2.5ml) 0.5 mg HHN Q4HRT [facility] Stop: 08/06/17 18:59 Last Admin: 06/27/17 07:45 Dose: 0.5 mg Lactulose (Cephulac) 30 gm PO BID [facility] Stop: 08/03/17 16:59 Last Admin: 06/27/17 09:18 Dose: 30 gm Lorazepam (Ativan) 0.5 mg IVP Q8HR PRN; Protocol PRN Reason: Agitation Stop: 08/14/17 14:52 Last Admin: 06/16/17 00:52 Dose: 0.5 mg Methylprednisolone Sodium Succinate (Solu-Medrol) 60 mg IVP Q8HR [facility] Stop: 08/24/17 12:59 Last Admin: 06/27/17 05:35 Dose: 60 mg Metoclopramide HCl (Reglan) 5 mg PO TID [facility] Stop: 08/16/17 13:59 Last Admin: 06/27/17 09:18 Dose: 5 mg Midodrine (Proamatine) 5 mg PO TID [facility] Stop: 08/10/17 20:59 Last Admin: 06/27/17 09:19 Dose: 5 mg Miscellaneous (Vte Chemical Prophylaxis Screen/ Admission) 1 ea PRN PRN PRN Reason: PROTOCOL Stop: 07/31/17 14:00 Miscellaneous (Probiotic Screen) 1 ea PRN PRN PRN Reason: PROTOCOL Stop: 07/31/17 16:02 Morphine Sulfate (Morphine) 2 mg IVP Q4HR PRN PRN Reason: Pain (Moderate) Stop: 08/13/17 10:37 Last Admin: 06/21/17 13:39 Dose: 2 mg Multivitamins/Vitamin C (Theragran) 1 tab GT DAILY [facility] Stop: 07/31/17 08:59 Last Admin: 06/27/17 09:19 Dose: 1 tab Ondansetron HCl (Zofran) 4 mg IV Q8H PRN PRN Reason: Nausea / Vomiting Stop: 07/30/17 13:41 Sodium Phosphate (Fleet Enema) 133 ml RC DAILY PRN PRN Reason: Constipation Stop: 07/30/17 13:39 General: Other (non communicative) Abdomen: Other (gastric tube) Extremities: Other (right arm picc) - Procedures Procedures: Procedures Procedure Code Date INSERT EMERGENCY AIRWAY 80403 05/31/17 INSERTION OF ENDOTRACHEAL AIRWAY INTO [place]ACHEA, VIA OPENING [id number] 05/31/17 RESPIRATORY VENTILATION, GREATER THAN 96 CONSECUTIVE HOURS [id number] 05/31/17 VENT MGMT INPAT INIT DAY 75098 05/31/17 Assessment/Plan - Problem List Patient Problems: All Active Problems COUGH AND CONGESTION (Acute) - Assessment Assessment: * pancytopenia secondary to bone marrow suppression by sepsis and meds continue neupogen follow cbc, s/p plt transfusion Nutritional Asmnt/Malnutr-PDOC - Dietary Evaluation Malnutrition Findings (Please click <Entered> for more info): Nutritional Asmnt/Malnutrition Start: 06/01/17 17: 31 Text: Status: Complete Freq: Document 06/01/17 17:31 SHELBIE (Rec: 06/01/17 17:45 LCHENG [id number]) Nutritional Asmnt/Malnutrition Patient General Information Nutritional Screening High Risk Consult Diagnosis renal failure, prespiratory failure r/o PNA Pertinent Medical Hx/Surgical Hx dementia, MR anemia, spastic quadriplegia, cerebral palsy, seizure, aspiration PNA, s/p respiratory failure, spsis, hyponatremia, gastroenteritis, PEG Subjective Information Consult received for Anibal 13 and pressure ulcer. Pt seen resting in bed at the time of visit, intubated, non-verbal noted. TF not running at this time. Current Diet Order/ Nutrition Support Isosource 1.5 87ml/hr x 17hr Pertinent Medications vitamin C, vitamin D3, D5w, teragran, piperacillin, miralax, cancomycin Pertinent Labs 06/01 na 160, Cl 120, K 4.1, BUN 29, Cr 0.3, Glucose 242, A1c 5.1, Ca 8.4, Mg 2.8 Nutritional Hx/Data Height 1.68 m Height (Calculated Centimeters) 167.6 Current Weight (lbs) 47.854 kg Weight (Calculated Kilograms) 47.9 Weight (Calculated Grams) 02564.0 [place] Body Weight 142 % [place] Body Weight 94 Body Mass Index (BMI) 17.0 Weight Status Underweight GI Symptoms GI Symptoms None Last BM none Difficult in: None Usual diet at home Jevity 1.5 87ml/hr x 17hr Skin Integrity/Comment: decubitus ulceration to sacrum Estimated Nutritional Goals Calories/Kcals/Kg 25-30 Kcals Calculated [id number] based on IBW 65kg Protein g/k.2-1.4 Protein Calculated 78-91 consider respiratory failure and skin probelm Nutritional Problem 1. Problem Problem excessive intake from enteral feeding Etiology current TF regimen providing excessive calorie and protein than estimated nutritional needs Signs/Symptoms: current TF providing 114% of calorie needs and 110% of protein needs Malnutrition Alert Protein-Calorie Malnutrition N/A Is there a minimum of two criteria No selected? Query Text:Check all the applicable criteria. A minimum of two criteria are recommended for diagnosis of either severe or non-severe malnutrition. Intervention/Recommendation Comments 1. Recommend modify TF rate to 70ml/hr x 17hr to meet 100% of nutritional needs and avoid overfeeding. 2. Monitor TF rate, tolerance, wt weekly, skin integrity and labs 3. F/U as moderate risk in 3-5 days, 04/25-04/27 Expected Outcomes/Goals Expected Outcomes/Goals 1. Pt to meet 75-100% of nutritional needs via nutrition support with tolerance 2. 2. Wt stability, skin to remain intact, labs to approach WNL.
--- NOTE | 2017-06-27 15:03 | Internal Medicine Prog Note ---
Internal Medicine Subjective - Subjective Service Date: 06/27/17 Patient is:: awake, non-verbal, non-interactive, in bed Patient Complaints of:: congestion Per staff patient has:: no adverse event, tolerating meds Internal Medicine Objective - Results Result Diagrams: 06/27/17 05:05 06/27/17 05:05 Recent Labs: Laboratory Last Values WBC 1.4 Th/cmm (4.8-10.8) L* D 06/27/17 05:05 RBC 2.58 Mil/cmm (4.30-5.70) L 06/27/17 05:05 Hgb 7.8 gm/dL (12-16) L* 06/27/17 05:05 Hct 23.1 % (41.0-60) L D 06/27/17 05:05 MCV 89.8 fl (80-99) 06/27/17 05:05 MCH 30.2 pg (26.0-30.0) H 06/27/17 05:05 MCHC Differential 33.7 pg (28.0-36.0) 06/27/17 05:05 RDW 17.2 % (11.5-20.0) 06/27/17 05:05 Plt Count 30 Th/cmm (150-400) L 06/27/17 05:05 MPV 6.8 fl 06/27/17 05:05 Neutrophils % APPRENTICE ELECTRICIAN 06/25/17 05:20 Band Neutrophils % 9 % (0-10) 06/27/17 05:05 Lymphocytes % APPRENTICE ELECTRICIAN 06/25/17 05:20 Monocytes % APPRENTICE ELECTRICIAN 06/25/17 05:20 Eosinophils % APPRENTICE ELECTRICIAN 06/25/17 05:20 Basophils % APPRENTICE ELECTRICIAN 06/25/17 05:20 Neutrophils (Manual) 74 % (40-80) 06/27/17 05:05 Lymphocytes 15 % (20-50) L 06/27/17 05:05 Monocytes 2 % (2-10) 06/27/17 05:05 Eosinophils 1 % (0-5) 06/16/17 04:25 Metamyelocytes 2 % (0-0) H 06/23/17 05:00 Myelocytes 1 % 06/23/17 05:00 Hypochromia 1+ 06/23/17 05:00 Platelet Estimate DECREASED PLATELETS (NORMAL) 06/27/17 05:05 Anisocytosis 1+ 06/23/17 05:00 Plt Count 30 Th/cmm (150-750) L 06/27/17 05:05 PT 10.9 SECONDS (9.5-11.5) 06/27/17 05:05 INR 1.05 (0.5-1.4) 06/27/17 05:05 PTT (Actin FS) 22.7 SECONDS (26.0-38.0) L 06/27/17 05:05 Fibrinogen 261.0 mg/dL (200.0-400.0) 06/27/17 05:05 D-Dimer 964 ng/mL (100-400) H 06/27/17 05:05 Specimen Source Arterial 06/26/17 08:54 Sample Site RB 06/26/17 08:54 pH 7.56 (7.35-7.45) H* 06/26/17 08:54 pCO2 34.0 mmHg (35.0-45.0) L 06/26/17 08:54 pO2 60.0 mmHg (80.0-100.0) L 06/26/17 08:54 HCO3 31.1 mEq/L (20.0-26.0) H 06/26/17 08:54 Base Excess 8.0 mEq/L (-3.0-3.0) H 06/26/17 08:54 O2 Saturation 94.0 % (92.0-100.0) 06/26/17 08:54 Endy Test Positive 06/26/17 08:54 Vent Rate 12 06/26/17 08:54 Inspired O2 60 06/26/17 08:54 Tidal Volume N/A 06/26/17 08:54 PEEP N/A 06/26/17 08:54 Pressure (ins/psv/peep) N/A 06/26/17 08:54 Critical Value DM 06/26/17 08:54 Sodium 151 mEq/L (136-145) H 06/27/17 05:05 Potassium 3.7 mEq/L (3.5-5.1) 06/27/17 05:05 Chloride 116 mEq/L (98-107) H 06/27/17 05:05 Carbon Dioxide 28.1 mEq/L (21.0-31.0) 06/27/17 05:05 Anion Gap 10.6 (7.0-16.0) 06/27/17 05:05 BUN 37 mg/dL (7-25) H 06/27/17 05:05 Creatinine 0.3 mg/dL (0.7-1.3) L 06/27/17 05:05 Est GFR ( Amer) > 60.0 ml/min (>90) 06/27/17 05:05 Est GFR (Non-Af Amer) > 60.0 ml/min 06/27/17 05:05 BUN/Creatinine Ratio 123.3 06/27/17 05:05 Glucose 314 mg/dL (70-105) H D 06/27/17 05:05 POC Glucose 124 MG/DL (70 - 105) H 06/14/17 05:50 Hemoglobin A1c % 5.1 % (4.0-6.0) 06/01/17 05:30 Whole Bld Lactic Acid 3.45 mmol/L (0.60-1.99) H* 06/03/17 06:45 Calcium 8.2 mg/dL (8.6-10.3) L 06/27/17 05:05 Magnesium 2.1 mg/dL (1.9-2.7) 06/26/17 06:05 Total Bilirubin 0.4 mg/dL (0.3-1.0) 06/26/17 06:05 AST 23 U/L (13-39) 06/26/17 06:05 ALT 63 U/L (7-52) H 06/26/17 06:05 Alkaline Phosphatase 63 U/L (34-104) 06/26/17 06:05 Ammonia 54 umol/L (16-53) H 06/20/17 18:05 B-Natriuretic Peptide 22.1 pg/mL (5.0-100.0) 06/26/17 06:05 Total Protein 4.4 gm/dL (6.0-8.3) L 06/26/17 06:05 Albumin 2.1 gm/dL (4.2-5.5) L 06/26/17 06:05 Globulin 2.3 gm/dL 06/26/17 06:05 Albumin/Globulin Ratio 0.9 (1.0-1.8) L 06/26/17 06:05 TSH 0.72 uIU/ml (0.34-5.60) 06/01/17 05:30 Urine Source CATH 05/31/17 12:35 Urine Color YELLOW 05/31/17 12:35 Urine Clarity CLOUDY (CLEAR) 05/31/17 12:35 Urine pH 8.5 (4.6 - 8.0) 05/31/17 12:35 Ur Specific [place] 1.010 (1.005-1.030) 05/31/17 12:35 Urine Protein 30 mg/dL (NEGATIVE) H 05/31/17 12:35 Urine Glucose (UA) NEGATIVE mg/dL (NEGATIVE) 05/31/17 12:35 Urine Ketones NEGATIVE mg/dL (NEGATIVE) 05/31/17 12:35 Urine Blood MODERATE (NEGATIVE) H 05/31/17 12:35 Urine Nitrate NEGATIVE (NEGATIVE) 05/31/17 12:35 Urine Bilirubin NEGATIVE (NEGATIVE) 05/31/17 12:35 Urine Urobilinogen 0.2 E.U./dL (0.2 - 1.0) 05/31/17 12:35 Ur Leukocyte Esterase NEGATIVE (NEGATIVE) 05/31/17 12:35 Urine RBC >100 /hpf (0-5) H 05/31/17 12:35 Urine WBC 2-5 /hpf (0-5) H 05/31/17 12:35 Ur Epithelial Cells NONE SEEN /lpf (FEW) 05/31/17 12:35 Urine Bacteria NONE SEEN /hpf (NONE SEEN) 05/31/17 12:35 Stool Occult Blood NEGATIVE (NEGATIVE) 06/05/17 06:00 Gentamicin Peak 13.8 ug/ml (4.0-8.0) H 06/11/17 11:05 Gentamicin Trough 0.8 ug/ml (0.2-2.0) 06/11/17 08:00 Vancomycin Trough 10.7 ug/mL (10-20) 06/04/17 09:00 Hepatitis A IgM Ab Negative (Negative) 06/10/17 06:20 Hep Bs Antigen Negative (Negative) 06/10/17 06:20 Hep B Core IgM Ab Negative (Negative) 06/10/17 06:20 Hepatitis C Antibody 6.9 s/co ratio (0.0-0.9) H 06/10/17 06:20 Influenza A (Rapid) NEG FOR INF A 06/05/17 08:00 Influenza B (Rapid) NEG FOR INF B 06/05/17 08:00 Blood Type O POSITIVE 06/26/17 21:27 Antibody Screen NEGATIVE 06/02/17 11:40 Crossmatch See Detail 06/02/17 11:40 - Physical Exam Vitals and I&O: Vital Signs Temp 99 F 06/27/17 10:30 Pulse 120 06/27/17 11:59 Resp 20 06/27/17 11:08 BP 114/67 06/27/17 10:30 Pulse Ox 95 06/27/17 11:08 Intake & Output 06/26/17 06/27/17 06/27/17 18:59 06:59 18:59 Intake Total 1050 1240 Output Total 700 600 Balance 350 640 Weight (lbs) 150 lb 11.2 oz 125 lb 8 oz Intake: Intake, IV Amount 50 50 Cefepime 1 gm In Dextrose 50 50 5% 50 ml @ 100 mls/hr IV Q12HR PENDING SALE TO [facility] Rx#:[id number] Oral 0 Tube Feeding 600 840 TPN/PPN 350 Other 400 Output: Urine 450 600 Other 250 Other: # Bowel Movements 400 Stool Characteristics Liquid Liquid Liquid Brown Brown Brown Active Medications: Current Medications Acetaminophen (Tylenol 650mg Supp) 650 mg RC Q4HR PRN PRN Reason: FEVER >100.1 Stop: 07/30/17 13:39 Last Admin: 06/27/17 01:53 Dose: 650 mg Acetylcysteine (Mucomyst 20%) 3 ml HHN Q4HRT PENDING SALE TO [facility] Stop: 08/22/17 18:59 Last Admin: 06/27/17 07:56 Dose: Not Given Albuterol Sulfate (Albuterol 2.5mg/3ml Neb Ud) 1.25 mg HHN Q4HRT PENDING SALE TO [facility] Stop: 08/06/17 18:59 Last Admin: 06/27/17 11:06 Dose: 1.25 mg Ascorbic Acid (Vitamin C) 500 mg GT DAILY FERNANDO Stop: 07/31/17 08:59 Last Admin: 06/27/17 09:19 Dose: 500 mg Bisacodyl (Dulcolax 10 Mg Supp) 10 mg RC Q72HR PRN PRN Reason: Constipation Stop: 07/30/17 13:39 [place] Oil/[place] Balsam/Trypsin (Venelex) 1 appl TP DAILY PENDING SALE TO [facility] Stop: 08/15/17 08:59 Last Admin: 06/26/17 10:06 Dose: 1 appl Cholecalciferol (Vitamin D3) 500 iu PO DAILY PENDING SALE TO [facility] Stop: 07/31/17 08:59 Last Admin: 06/27/17 09:19 Dose: 500 iu Diltiazem HCl (Cardizem) 20 mg IVP Q4H PRN PRN Reason: HR Greater than 130 per min Stop: 08/19/17 17:40 Diltiazem HCl (Cardizem) 60 mg PO Q6HR FERNANDO Stop: 08/19/17 17:59 Last Admin: 06/27/17 11:59 Dose: 60 mg Famotidine (Pepcid) 20 mg PO BID PENDING SALE TO [facility] Stop: 08/19/17 16:59 Last Admin: 06/27/17 09:19 Dose: 20 mg Guaifenesin (Robitussin) 200 mg PO Q4HR PRN PRN Reason: Cough or Congestion Stop: 07/30/17 13:41 Last Admin: 06/10/17 20:59 Dose: 200 mg Norepinephrine Bitartrate 4 mg (/ Dextrose) 254 mls @ 30.48 mls/hr IV TITR PRN ; Protocol; 8 MCG/MIN PRN Reason: BP MAINTENANCE (PER PROTOCOL) Stop: 07/31/17 16:46 Last Titration: 06/03/17 00:00 Dose: 0 mcg/min, 0 mls/hr Cefepime HCl 1 gm/ Dextrose 50 mls @ 100 mls/hr IV Q12HR PENDING SALE TO [facility] Stop: 08/24/17 12:59 Last Admin: 06/27/17 10:52 Dose: 100 mls/hr Ipratropium [place] (Atrovent Neb 0.5mg/2.5ml) 0.5 mg HHN Q4HRT PENDING SALE TO [facility] Stop: 08/06/17 18:59 Last Admin: 06/27/17 11:06 Dose: 0.5 mg Lactulose (Cephulac) 30 gm PO BID PENDING SALE TO [facility] Stop: 08/03/17 16:59 Last Admin: 06/27/17 09:18 Dose: 30 gm Lorazepam (Ativan) 0.5 mg IVP Q8HR PRN; Protocol PRN Reason: Agitation Stop: 08/14/17 14:52 Last Admin: 06/27/17 12:03 Dose: 0.5 mg Methylprednisolone Sodium Succinate (Solu-Medrol) 60 mg IVP Q8HR PENDING SALE TO [facility] Stop: 08/24/17 12:59 Last Admin: 06/27/17 14:06 Dose: 60 mg Metoclopramide HCl (Reglan) 5 mg PO TID PENDING SALE TO [facility] Stop: 08/16/17 13:59 Last Admin: 06/27/17 14:06 Dose: 5 mg Midodrine (Proamatine) 5 mg PO TID PENDING SALE TO [facility] Stop: 08/10/17 20:59 Last Admin: 06/27/17 14:06 Dose: 5 mg Miscellaneous (Vte Chemical Prophylaxis Screen/ Admission) 1 ea PRN PRN PRN Reason: PROTOCOL Stop: 07/31/17 14:00 Miscellaneous (Probiotic Screen) 1 [facility] PRN PRN PRN Reason: PROTOCOL Stop: 07/31/17 16:02 Morphine Sulfate (Morphine) 2 mg IVP Q4HR PRN PRN Reason: Pain (Moderate) Stop: 08/13/17 10:37 Last Admin: 06/21/17 13:39 Dose: 2 mg Multivitamins/Vitamin C (Theragran) 1 tab GT DAILY PENDING SALE TO [facility] Stop: 07/31/17 08:59 Last Admin: 06/27/17 09:19 Dose: 1 tab Ondansetron HCl (Zofran) 4 mg IV Q8H PRN PRN Reason: Nausea / Vomiting Stop: 07/30/17 13:41 Sodium Phosphate (Fleet Enema) 133 ml RC DAILY PRN PRN Reason: Constipation Stop: 07/30/17 13:39 General: weak, congested HEENT: NC/AT, PERRLA Neck: No LAD, deformity Lungs: congested, rales, ronchi Cardiovascular: RRR, Normal S1, Normal S2, without murmur Abdomen: soft, non-tender, non-distended, +GT, positive bowel sound Extremities: excoriation, ecchymosis, contracture, deformity, atrophy Neurological: unable to follow command - Procedures Procedures: Procedures Procedure Code Date INSERT EMERGENCY AIRWAY 30440 05/31/17 INSERTION OF ENDOTRACHEAL AIRWAY INTO [place], VIA OPENING [id number] 05/31/17 RESPIRATORY VENTILATION, GREATER THAN 96 CONSECUTIVE HOURS [id number] 05/31/17 VENT MGMT INPAT INIT DAY 80356 05/31/17 Internal Medicine Assmt/Plan - Assessment Assessment: S/p cardiopulmonary arrest s/p extubation Multilobar PNA lactic acidosis Acute Respiratory Failure Sepsis PNA leukocytosis hypokalemia acute renal insufficiency spastic quadriplegia seizures s/p colostomy s/p wound debridement DNR STATUS - Plan Plan: case picker arranging placement suction patient has needed aspiration precautions inhalation treatments empiric ivantibiotics pulmo follow up continue current plan of care Nutritional Asmnt/Malnutr-PDOC - Dietary Evaluation Malnutrition Findings (Please click <Entered> for more info): Nutritional Asmnt/Malnutrition Start: 06/01/17 17: 31 Text: Status: Complete Freq: Document 06/01/17 17:31 [facility] (Rec[facility] 06[facility]01[id number] Nutritional Asmnt/Malnutrition Patient General Information Nutritional Screening High Risk Consult Diagnosis renal failure, prespiratory failure r/o PNA Pertinent Medical Hx/Surgical Hx dementia, MR anemia, spastic quadriplegia, cerebral palsy, seizure, aspiration PNA, s/p respiratory failure, spsis, hyponatremia, gastroenteritis, PEG Subjective Information Consult received for Anibal 13 and pressure ulcer. Pt seen resting in bed at the time of visit, intubated, non-verbal noted. TF not running at this time. Current Diet Order/ Nutrition Support Isosource 1.5 87ml/hr x 17hr Pertinent Medications vitamin C, vitamin D3, D5w, teragran, piperacillin, miralax, cancomycin Pertinent Labs 06/01 na 160, Cl 120, K 4.1, BUN 29, Cr 0.3, Glucose 242, A1c 5.1, Ca 8.4, Mg 2.8 Nutritional Hx/Data Height 5 ft 6 in Height (Calculated Centimeters) 167.6 Current Weight (lbs) 105 lb 8 oz Weight (Calculated Kilograms) 47.9 Weight (Calculated Grams) 60575.0 [place] Body Weight 142 % [place] Body Weight 94 Body Mass Index (BMI) 17.0 Weight Status Underweight GI Symptoms GI Symptoms None Last BM none Difficult in: None Usual diet at home Jevity 1.5 87ml/hr x 17hr Skin Integrity/Comment: decubitus ulceration to sacrum Estimated Nutritional Goals Calories/Kcals/Kg 25-30 Kcals Calculated [id number] based on IBW 65kg Protein g/k.2-1.4 Protein Calculated 78-91 consider respiratory failure and skin probelm Nutritional Problem 1. Problem Problem excessive intake from enteral feeding Etiology current TF regimen providing excessive calorie and protein than estimated nutritional needs Signs/Symptoms: current TF providing 114% of calorie needs and 110% of protein needs Malnutrition Alert Protein-Calorie Malnutrition N/A Is there a minimum of two criteria No selected? Query Text:Check all the applicable criteria. A minimum of two criteria are recommended for diagnosis of either severe or non-severe malnutrition. Intervention/Recommendation Comments 1. Recommend modify TF rate to 70ml/hr x 17hr to meet 100% of nutritional needs and avoid overfeeding. 2. Monitor TF rate, tolerance, wt weekly, skin integrity and labs 3. F/U as moderate risk in 3-5 days, 04/25-04/27 Expected Outcomes/Goals Expected Outcomes/Goals 1. Pt to meet 75-100% of nutritional needs via nutrition support with tolerance 2. 2. Wt stability, skin to remain intact, labs to approach WNL.
[2017-06-27] MEDS: Venelex 60gm Tube TP SCH (17:22)
[2017-06-28] MEDS: Diltiazem 30 mg Tab PO SCH ×3 (00:20→11:23)
[2017-06-28] MEDS: Ipratropium Neb 0.5 mg/2.5 mL UD HHN SCH ×6 (03:12→22:40)
[2017-06-28] MEDS: Albuterol Nebulizer 2.5mg/3mL HHN SCH ×6 (03:12→22:40)
[2017-06-28 06:33] LABS: HEMATOCRIT 24.6 % (41.0-60); HEMOGLOBIN 8.1 gm/dL (12-16); MEAN CELL VOLUME 91.6 fl (80-99); MEAN CORPUSCULAR HEMOGLOBIN 30.2 pg (26.0-30.0); MEAN PLATELET VOLUME 7.1 fl; RED BLOOD COUNT 2.69 Mil/cmm (4.30-5.70); RED CELL DISTRIBUTION WIDTH 17.6 % (11.5-20.0)
[2017-06-28 06:47] LABS: ANION GAP 11.1 (7.0-16.0); BUN - UREA NITROGEN 31 mg/dL (7-25); CALCIUM SERUM 8.8 mg/dL (8.6-10.3); CARBON DIOXIDE 29.2 mEq/L (21.0-31.0); CHLORIDE 118 mEq/L (98-107); CREATININE - SERUM 0.2 mg/dL (0.7-1.3); GFR AFRICAN-AMERICAN > 60.0 ml/min (>90); GFR NON AFRICAN-AMERICAN > 60.0 ml/min; GLUCOSE 198 mg/dL (70-105); POTASSIUM SERUM 4.3 mEq/L (3.5-5.1); SODIUM SERUM 154 mEq/L (136-145)
[2017-06-28 06:56] LABS: PLATELET COUNT 22 Th/cmm (150-400); WHITE BLOOD COUNT 1.6 Th/cmm (4.8-10.8)
[2017-06-28 07:49] LABS: BAND NEUTROPHILE 6 % (0-10); LYMPHOCYTE 13 % (20-50); MONOCYTE 4 % (2-10); NEUTROPHILS 77 % (40-80); PLATELET ESTIMATE DECREASED PLATELETS (NORMAL); TOTAL CELLS COUNTED 100
--- NOTE | 2017-06-28 08:34 | Diagnostic Imaging Report ---
Portable chest x-ray HISTORY: Shortness of breath Compared to prior exam of June 26, 2017, there has developed a marked increase in infiltrate within the right lower lobe. Findings consistent with worsening pneumonia. Remains generalized accentuation of interstitial markings within the left lower lobe. IMPRESSION: 1. Marked increase in right lower lobe infiltrate consistent with pneumonia.
[2017-06-28] MEDS: Lactulose 10 Gm/15 mL 30mL UDC PO SCH (08:44)
[2017-06-28] MEDS: Multivitamin Tab GT SCH (08:45)
--- NOTE | 2017-06-28 13:00 | Internal Medicine Prog Note ---
Internal Medicine Subjective - Subjective Service Date: 06/28/17 Patient is:: awake, non-verbal, non-interactive, in bed Patient Complaints of:: congestion Per staff patient has:: no adverse event, tolerating meds Internal Medicine Objective - Results Result Diagrams: 06/28/17 06:16 06/28/17 06:16 Recent Labs: Laboratory Last Values WBC 1.6 Th/cmm (4.8-10.8) L* 06/28/17 06:16 RBC 2.69 Mil/cmm (4.30-5.70) L 06/28/17 06:16 Hgb 8.1 gm/dL (12-16) L 06/28/17 06:16 Hct 24.6 % (41.0-60) L 06/28/17 06:16 MCV 91.6 fl (80-99) 06/28/17 06:16 MCH 30.2 pg (26.0-30.0) H 06/28/17 06:16 MCHC Differential 33.0 pg (28.0-36.0) 06/28/17 06:16 RDW 17.6 % (11.5-20.0) 06/28/17 06:16 Plt Count 22 Th/cmm (150-400) L* 06/28/17 06:16 MPV 7.1 fl 06/28/17 06:16 Neutrophils % [employer] 06/25/17 05:20 Band Neutrophils % 6 % (0-10) 06/28/17 06:16 Lymphocytes % [employer] 06/25/17 05:20 Monocytes % [employer] 06/25/17 05:20 Eosinophils % [employer] 06/25/17 05:20 Basophils % [employer] 06/25/17 05:20 Neutrophils (Manual) 77 % (40-80) 06/28/17 06:16 Lymphocytes 13 % (20-50) L 06/28/17 06:16 Monocytes 4 % (2-10) 06/28/17 06:16 Eosinophils 1 % (0-5) 06/16/17 04:25 Metamyelocytes 2 % (0-0) H 06/23/17 05:00 Myelocytes 1 % 06/23/17 05:00 Hypochromia 1+ 06/23/17 05:00 Platelet Estimate DECREASED PLATELETS (NORMAL) 06/28/17 06:16 Anisocytosis 1+ 06/23/17 05:00 Plt Count 30 Th/cmm (150-750) L 06/27/17 05:05 PT 10.9 SECONDS (9.5-11.5) 06/27/17 05:05 INR 1.05 (0.5-1.4) 06/27/17 05:05 PTT (Actin FS) 22.7 SECONDS (26.0-38.0) L 06/27/17 05:05 Fibrinogen 261.0 mg/dL (200.0-400.0) 06/27/17 05:05 D-Dimer 964 ng/mL (100-400) H 06/27/17 05:05 Specimen Source Arterial 06/26/17 08:54 Sample Site RB 06/26/17 08:54 pH 7.56 (7.35-7.45) H* 06/26/17 08:54 pCO2 34.0 mmHg (35.0-45.0) L 06/26/17 08:54 pO2 60.0 mmHg (80.0-100.0) L 06/26/17 08:54 HCO3 31.1 mEq/L (20.0-26.0) H 06/26/17 08:54 Base Excess 8.0 mEq/L (-3.0-3.0) H 06/26/17 08:54 O2 Saturation 94.0 % (92.0-100.0) 06/26/17 08:54 Endy Test Positive 06/26/17 08:54 Vent Rate 12 06/26/17 08:54 Inspired O2 60 06/26/17 08:54 Tidal Volume N/A 06/26/17 08:54 PEEP N/A 06/26/17 08:54 Pressure (ins/psv/peep) N/A 06/26/17 08:54 Critical Value DM 06/26/17 08:54 Sodium 154 mEq/L (136-145) H 06/28/17 06:16 Potassium 4.3 mEq/L (3.5-5.1) 06/28/17 06:16 Chloride 118 mEq/L (98-107) H 06/28/17 06:16 Carbon Dioxide 29.2 mEq/L (21.0-31.0) 06/28/17 06:16 Anion Gap 11.1 (7.0-16.0) 06/28/17 06:16 BUN 31 mg/dL (7-25) H 06/28/17 06:16 Creatinine 0.2 mg/dL (0.7-1.3) L 06/28/17 06:16 Est GFR ( Amer) > 60.0 ml/min (>90) 06/28/17 06:16 Est GFR (Non-Af Amer) > 60.0 ml/min 06/28/17 06:16 BUN/Creatinine Ratio 155.0 06/28/17 06:16 Glucose 198 mg/dL (70-105) H 06/28/17 06:16 POC Glucose 124 MG/DL (70 - 105) H 06/14/17 05:50 Hemoglobin A1c % 5.1 % (4.0-6.0) 06/01/17 05:30 Whole Bld Lactic Acid 3.45 mmol/L (0.60-1.99) H* 06/03/17 06:45 Calcium 8.8 mg/dL (8.6-10.3) 06/28/17 06:16 Magnesium 2.1 mg/dL (1.9-2.7) 06/26/17 06:05 Total Bilirubin 0.4 mg/dL (0.3-1.0) 06/26/17 06:05 AST 23 U/L (13-39) 06/26/17 06:05 ALT 63 U/L (7-52) H 06/26/17 06:05 Alkaline Phosphatase 63 U/L (34-104) 06/26/17 06:05 Ammonia 54 umol/L (16-53) H 06/20/17 18:05 B-Natriuretic Peptide 22.1 pg/mL (5.0-100.0) 06/26/17 06:05 Total Protein 4.4 gm/dL (6.0-8.3) L 06/26/17 06:05 Albumin 2.1 gm/dL (4.2-5.5) L 06/26/17 06:05 Globulin 2.3 gm/dL 06/26/17 06:05 Albumin/Globulin Ratio 0.9 (1.0-1.8) L 06/26/17 06:05 TSH 0.72 uIU/ml (0.34-5.60) 06/01/17 05:30 Urine Source CATH 05/31/17 12:35 Urine Color YELLOW 05/31/17 12:35 Urine Clarity CLOUDY (CLEAR) 05/31/17 12:35 Urine pH 8.5 (4.6 - 8.0) 05/31/17 12:35 Ur Specific [place] 1.010 (1.005-1.030) 05/31/17 12:35 Urine Protein 30 mg/dL (NEGATIVE) H 05/31/17 12:35 Urine Glucose (UA) NEGATIVE mg/dL (NEGATIVE) 05/31/17 12:35 Urine Ketones NEGATIVE mg/dL (NEGATIVE) 05/31/17 12:35 Urine Blood MODERATE (NEGATIVE) H 05/31/17 12:35 Urine Nitrate NEGATIVE (NEGATIVE) 05/31/17 12:35 Urine Bilirubin NEGATIVE (NEGATIVE) 05/31/17 12:35 Urine Urobilinogen 0.2 E.U./dL (0.2 - 1.0) 05/31/17 12:35 Ur Leukocyte Esterase NEGATIVE (NEGATIVE) 05/31/17 12:35 Urine RBC >100 /hpf (0-5) H 05/31/17 12:35 Urine WBC 2-5 /hpf (0-5) H 05/31/17 12:35 Ur Epithelial Cells NONE SEEN /lpf (FEW) 05/31/17 12:35 Urine Bacteria NONE SEEN /hpf (NONE SEEN) 05/31/17 12:35 Stool Occult Blood NEGATIVE (NEGATIVE) 06/05/17 06:00 Gentamicin Peak 13.8 ug/ml (4.0-8.0) H 06/11/17 11:05 Gentamicin Trough 0.8 ug/ml (0.2-2.0) 06/11/17 08:00 Vancomycin Trough 10.7 ug/mL (10-20) 06/04/17 09:00 Hepatitis A IgM Ab Negative (Negative) 06/10/17 06:20 Hep Bs Antigen Negative (Negative) 06/10/17 06:20 Hep B Core IgM Ab Negative (Negative) 06/10/17 06:20 Hepatitis C Antibody 6.9 s/co ratio (0.0-0.9) H 06/10/17 06:20 Influenza A (Rapid) NEG FOR INF A 06/05/17 08:00 Influenza B (Rapid) NEG FOR INF B 06/05/17 08:00 Blood Type O POSITIVE 06/26/17 21:27 Antibody Screen NEGATIVE 06/02/17 11:40 Crossmatch See Detail 06/02/17 11:40 - Physical Exam Vitals and I&O: Vital Signs Temp 97.4 F 06/28/17 11:32 Pulse 132 06/28/17 11:32 Resp 18 06/28/17 11:32 BP 126/71 06/28/17 11:32 Pulse Ox 98 06/28/17 11:32 Intake & Output 06/27/17 06/28/17 06/28/17 18:59 06:59 18:59 Intake Total 970 50 Output Total 1000 750 Balance -30 -700 Weight (lbs) 125 lb 125 lb 125 lb Intake: Intake, IV Amount 50 50 Cefepime 1 gm In Dextrose 50 50 5% 50 ml @ 100 mls/hr IV Q12HR [facility] Rx#:[id number] Oral 920 Output: Urine 500 550 Stool 500 200 Other: Stool Characteristics Liquid Liquid Brown Brown Brown Active Medications: Current Medications Acetaminophen (Tylenol 650mg Supp) 650 mg RC Q4HR PRN PRN Reason: FEVER >100.1 Stop: 07/30/17 13:39 Last Admin: 06/27/17 01:53 Dose: 650 mg Acetylcysteine (Mucomyst 20%) 3 ml HHN Q4HRT [facility] Stop: 08/22/17 18:59 Last Admin: 06/28/17 07:49 Dose: Not Given Albuterol Sulfate (Albuterol 2.5mg/3ml Neb Ud) 1.25 mg HHN Q4HRT [facility] Stop: 08/06/17 18:59 Last Admin: 06/28/17 10:58 Dose: 1.25 mg Ascorbic Acid (Vitamin C) 500 mg GT DAILY [facility] Stop: 07/31/17 08:59 Last Admin: 06/28/17 08:46 Dose: 500 mg Bisacodyl (Dulcolax 10 Mg Supp) 10 mg RC Q72HR PRN PRN Reason: Constipation Stop: 07/30/17 13:39 [place] Balsam/Trypsin (Venelex) 1 appl TP DAILY [facility] Stop: 08/15/17 08:59 Last Admin: 06/27/17 17:22 Dose: 1 appl Cholecalciferol (Vitamin D3) 500 iu PO DAILY [facility] Stop: 07/31/17 08:59 Last Admin: 06/28/17 08:46 Dose: 500 iu Diltiazem HCl (Cardizem) 20 mg IVP Q4H PRN PRN Reason: HR Greater than 130 per min Stop: 08/19/17 17:40 Diltiazem HCl (Cardizem) 60 mg PO Q6HR [facility] Stop: 08/19/17 17:59 Last Admin: 06/28/17 11:23 Dose: 60 mg Famotidine (Pepcid) 20 mg PO BID [facility] Stop: 08/19/17 16:59 Last Admin: 06/28/17 08:46 Dose: 20 mg Filgrastim (Neupogen) 480 mcg SUBQ DAILY [facility] Stop: 08/28/17 08:59 Guaifenesin (Robitussin) 200 mg PO Q4HR PRN PRN Reason: Cough or Congestion Stop: 07/30/17 13:41 Last Admin: 06/10/17 20:59 Dose: 200 mg Norepinephrine Bitartrate 4 mg (/ Dextrose) 254 mls @ 30.48 mls/hr IV TITR PRN ; Protocol; 8 MCG/MIN PRN Reason: BP MAINTENANCE (PER PROTOCOL) Stop: 07/31/17 16:46 Last Titration: 06/03/17 00:00 Dose: 0 mcg/min, 0 mls/hr Meropenem 1 gm/ Sodium (Chloride) 100 mls @ 100 mls/hr IV Q12H [facility] Stop: 08/27/17 12:44 Vancomycin HCl 1 gm/ Sodium (Chloride) 250 mls @ 166.667 mls/hr IV Q24H [facility] Stop: 08/27/17 12:44 Ipratropium [place] (Atrovent Neb 0.5mg/2.5ml) 0.5 mg HHN Q4HRT [facility] Stop: 08/06/17 18:59 Last Admin: 06/28/17 10:58 Dose: 0.5 mg Lactulose (Cephulac) 30 gm PO BID [facility] Stop: 08/03/17 16:59 Last Admin: 06/28/17 08:44 Dose: 30 gm Lorazepam (Ativan) 0.5 mg IVP Q8HR PRN; Protocol PRN Reason: Agitation Stop: 08/14/17 14:52 Last Admin: 06/28/17 11:23 Dose: 0.5 mg Methylprednisolone Sodium Succinate (Solu-Medrol) 60 mg IVP Q8HR [facility] Stop: 08/24/17 12:59 Last Admin: 06/28/17 05:23 Dose: 60 mg Metoclopramide HCl (Reglan) 5 mg PO TID [facility] Stop: 08/16/17 13:59 Last Admin: 06/28/17 08:45 Dose: 5 mg Midodrine (Proamatine) 5 mg PO TID [facility] Stop: 08/10/17 20:59 Last Admin: 06/28/17 08:52 Dose: Not Given Miscellaneous (Vte Chemical Prophylaxis Screen/ Admission) 1 [facility] PRN PRN PRN Reason: PROTOCOL Stop: 07/31/17 14:00 Miscellaneous (Probiotic Screen) 1 [facility] PRN PRN PRN Reason: PROTOCOL Stop: 07/31/17 16:02 Miscellaneous (Vancomycin Iv Per Pharmacy) 1 [facility] PRN [facility] Stop: 08/27/17 12:44 Multivitamins/Vitamin C (Theragran) 1 tab GT DAILY [facility] Stop: 07/31/17 08:59 Last Admin: 06/28/17 08:45 Dose: 1 tab Ondansetron HCl (Zofran) 4 mg IV Q8H PRN PRN Reason: Nausea / Vomiting Stop: 07/30/17 13:41 Sodium Phosphate (Fleet Enema) 133 ml RC DAILY PRN PRN Reason: Constipation Stop: 07/30/17 13:39 General: weak, congested HEENT: NC/AT, PERRLA Neck: No LAD, deformity Lungs: congested, rales, ronchi Cardiovascular: RRR, Normal S1, Normal S2, without murmur Abdomen: soft, non-tender, non-distended, +GT, positive bowel sound Extremities: excoriation, ecchymosis, contracture, deformity, atrophy Neurological: unable to follow command - Procedures Procedures: Procedures Procedure Code Date INSERT EMERGENCY AIRWAY 26061 05/31/17 INSERTION OF ENDOTRACHEAL AIRWAY INTO [place], VIA OPENING [id number] 05/31/17 RESPIRATORY VENTILATION, GREATER THAN 96 CONSECUTIVE HOURS [id number] 05/31/17 VENT MGMT INPAT INIT DAY 89415 05/31/17 Internal Medicine Assmt/Plan - Assessment Assessment: S/p cardiopulmonary arrest s/p extubation Multilobar PNA lactic acidosis Acute Respiratory Failure Sepsis PNA leukocytosis hypokalemia acute renal insufficiency spastic quadriplegia seizures s/p colostomy s/p wound debridement DNR STATUS - Plan Plan: case filler arranging placement suction patient has needed aspiration precautions inhalation treatments empiric ivantibiotics pulmo follow up continue current plan of care overall prognosis is poor Nutritional Asmnt/Malnutr-PDOC - Dietary Evaluation Malnutrition Findings (Please click <Entered> for more info): Nutritional Asmnt/Malnutrition Start: 06/01/17 17: 31 Text: Status: Complete Freq: Document 06/01/17 17:31 LCHENG (Rec: 06/01/17 17:45 LCHEN [id number]) Nutritional Asmnt/Malnutrition Patient General Information Nutritional Screening High Risk Consult Diagnosis renal failure, prespiratory failure r/o PNA Pertinent Medical Hx/Surgical Hx dementia, MR anemia, spastic quadriplegia, cerebral palsy, seizure, aspiration PNA, s/p respiratory failure, spsis, hyponatremia, gastroenteritis, PEG Subjective Information Consult received for Anibal 13 and pressure ulcer. Pt seen resting in bed at the time of visit, intubated, non-verbal noted. TF not running at this time. Current Diet Order/ Nutrition Support Isosource 1.5 87ml/hr x 17hr Pertinent Medications vitamin C, vitamin D3, D5w, teragran, piperacillin, miralax, cancomycin Pertinent Labs 06/01 na 160, Cl 120, K 4.1, BUN 29, Cr 0.3, Glucose 242, A1c 5.1, Ca 8.4, Mg 2.8 Nutritional Hx/Data Height 5 ft 6 in Height (Calculated Centimeters) 167.6 Current Weight (lbs) 105 lb 8 oz Weight (Calculated Kilograms) 47.9 Weight (Calculated Grams) 25024.0 [place] Body Weight 142 % [place] Body Weight 94 Body Mass Index (BMI) 17.0 Weight Status Underweight GI Symptoms GI Symptoms None Last BM none Difficult in: None Usual diet at home Jevity 1.5 87ml/hr x 17hr Skin Integrity/Comment: decubitus ulceration to sacrum Estimated Nutritional Goals Calories/Kcals/Kg 25-30 Kcals Calculated [id number] based on IBW 65kg Protein g/k.2-1.4 Protein Calculated 78-91 consider respiratory failure and skin probelm Nutritional Problem 1. Problem Problem excessive intake from enteral feeding Etiology current TF regimen providing excessive calorie and protein than estimated nutritional needs Signs/Symptoms: current TF providing 114% of calorie needs and 110% of protein needs Malnutrition Alert Protein-Calorie Malnutrition N/A Is there a minimum of two criteria No selected? Query Text:Check all the applicable criteria. A minimum of two criteria are recommended for diagnosis of either severe or non-severe malnutrition. Intervention/Recommendation Comments 1. Recommend modify TF rate to 70ml/hr x 17hr to meet 100% of nutritional needs and avoid overfeeding. 2. Monitor TF rate, tolerance, wt weekly, skin integrity and labs 3. F/U as moderate risk in 3-5 days, 04/25-04/27 Expected Outcomes/Goals Expected Outcomes/Goals 1. Pt to meet 75-100% of nutritional needs via nutrition support with tolerance 2. 2. Wt stability, skin to remain intact, labs to approach WNL.
[2017-06-28] MEDS: Venelex 60gm Tube TP SCH (17:53)
[2017-06-28] MEDS: Meropenem 1 GM in Sodium Chloride 0.9% 100 ML IV SCH ×2 (19:43→23:17)
--- NOTE | 2017-06-28 20:44 | General Progress Note ---
Subjective - Review of Systems Service Date: 06/28/17 Objective - Results Result Diagrams: 06/28/17 06:16 06/28/17 06:16 Recent Labs: Laboratory Last Values WBC 1.6 Th/cmm (4.8-10.8) L* 06/28/17 06:16 RBC 2.69 Mil/cmm (4.30-5.70) L 06/28/17 06:16 Hgb 8.1 gm/dL (12-16) L 06/28/17 06:16 Hct 24.6 % (41.0-60) L 06/28/17 06:16 MCV 91.6 fl (80-99) 06/28/17 06:16 MCH 30.2 pg (26.0-30.0) H 06/28/17 06:16 MCHC Differential 33.0 pg (28.0-36.0) 06/28/17 06:16 RDW 17.6 % (11.5-20.0) 06/28/17 06:16 Plt Count 22 Th/cmm (150-400) L* 06/28/17 06:16 MPV 7.1 fl 06/28/17 06:16 Neutrophils % REFRIGERATION INSTALLER 06/25/17 05:20 Band Neutrophils % 6 % (0-10) 06/28/17 06:16 Lymphocytes % REFRIGERATION INSTALLER 06/25/17 05:20 Monocytes % REFRIGERATION INSTALLER 06/25/17 05:20 Eosinophils % REFRIGERATION INSTALLER 06/25/17 05:20 Basophils % REFRIGERATION INSTALLER 06/25/17 05:20 Neutrophils (Manual) 77 % (40-80) 06/28/17 06:16 Lymphocytes 13 % (20-50) L 06/28/17 06:16 Monocytes 4 % (2-10) 06/28/17 06:16 Eosinophils 1 % (0-5) 06/16/17 04:25 Metamyelocytes 2 % (0-0) H 06/23/17 05:00 Myelocytes 1 % 06/23/17 05:00 Hypochromia 1+ 06/23/17 05:00 Platelet Estimate DECREASED PLATELETS (NORMAL) 06/28/17 06:16 Anisocytosis 1+ 06/23/17 05:00 Plt Count 30 Th/cmm (150-750) L 06/27/17 05:05 PT 10.9 SECONDS (9.5-11.5) 06/27/17 05:05 INR 1.05 (0.5-1.4) 06/27/17 05:05 PTT (Actin FS) 22.7 SECONDS (26.0-38.0) L 06/27/17 05:05 Fibrinogen 261.0 mg/dL (200.0-400.0) 06/27/17 05:05 D-Dimer 964 ng/mL (100-400) H 06/27/17 05:05 Specimen Source Arterial 06/26/17 08:54 Sample Site RB 06/26/17 08:54 pH 7.56 (7.35-7.45) H* 06/26/17 08:54 pCO2 34.0 mmHg (35.0-45.0) L 06/26/17 08:54 pO2 60.0 mmHg (80.0-100.0) L 06/26/17 08:54 HCO3 31.1 mEq/L (20.0-26.0) H 06/26/17 08:54 Base Excess 8.0 mEq/L (-3.0-3.0) H 06/26/17 08:54 O2 Saturation 94.0 % (92.0-100.0) 06/26/17 08:54 Endy Test Positive 06/26/17 08:54 Vent Rate 12 06/26/17 08:54 Inspired O2 60 06/26/17 08:54 Tidal Volume N/A 06/26/17 08:54 PEEP N/A 06/26/17 08:54 Pressure (ins/psv/peep) N/A 06/26/17 08:54 Critical Value DM 06/26/17 08:54 Sodium 154 mEq/L (136-145) H 06/28/17 06:16 Potassium 4.3 mEq/L (3.5-5.1) 06/28/17 06:16 Chloride 118 mEq/L (98-107) H 06/28/17 06:16 Carbon Dioxide 29.2 mEq/L (21.0-31.0) 06/28/17 06:16 Anion Gap 11.1 (7.0-16.0) 06/28/17 06:16 BUN 31 mg/dL (7-25) H 06/28/17 06:16 Creatinine 0.2 mg/dL (0.7-1.3) L 06/28/17 06:16 Est GFR ( Amer) > 60.0 ml/min (>90) 06/28/17 06:16 Est GFR (Non-Af Amer) > 60.0 ml/min 06/28/17 06:16 BUN/Creatinine Ratio 155.0 06/28/17 06:16 Glucose 198 mg/dL (70-105) H 06/28/17 06:16 POC Glucose 124 MG/DL (70 - 105) H 06/14/17 05:50 Hemoglobin A1c % 5.1 % (4.0-6.0) 06/01/17 05:30 Whole Bld Lactic Acid 3.45 mmol/L (0.60-1.99) H* 06/03/17 06:45 Calcium 8.8 mg/dL (8.6-10.3) 06/28/17 06:16 Magnesium 2.1 mg/dL (1.9-2.7) 06/26/17 06:05 Total Bilirubin 0.4 mg/dL (0.3-1.0) 06/26/17 06:05 AST 23 U/L (13-39) 06/26/17 06:05 ALT 63 U/L (7-52) H 06/26/17 06:05 Alkaline Phosphatase 63 U/L (34-104) 06/26/17 06:05 Ammonia 54 umol/L (16-53) H 06/20/17 18:05 B-Natriuretic Peptide 22.1 pg/mL (5.0-100.0) 06/26/17 06:05 Total Protein 4.4 gm/dL (6.0-8.3) L 06/26/17 06:05 Albumin 2.1 gm/dL (4.2-5.5) L 06/26/17 06:05 Globulin 2.3 gm/dL 06/26/17 06:05 Albumin/Globulin Ratio 0.9 (1.0-1.8) L 06/26/17 06:05 TSH 0.72 uIU/ml (0.34-5.60) 06/01/17 05:30 Urine Source CATH 05/31/17 12:35 Urine Color YELLOW 05/31/17 12:35 Urine Clarity CLOUDY (CLEAR) 05/31/17 12:35 Urine pH 8.5 (4.6 - 8.0) 05/31/17 12:35 Ur Specific [place] 1.010 (1.005-1.030) 05/31/17 12:35 Urine Protein 30 mg/dL (NEGATIVE) H 05/31/17 12:35 Urine Glucose (UA) NEGATIVE mg/dL (NEGATIVE) 05/31/17 12:35 Urine Ketones NEGATIVE mg/dL (NEGATIVE) 05/31/17 12:35 Urine Blood MODERATE (NEGATIVE) H 05/31/17 12:35 Urine Nitrate NEGATIVE (NEGATIVE) 05/31/17 12:35 Urine Bilirubin NEGATIVE (NEGATIVE) 05/31/17 12:35 Urine Urobilinogen 0.2 E.U./dL (0.2 - 1.0) 05/31/17 12:35 Ur Leukocyte Esterase NEGATIVE (NEGATIVE) 05/31/17 12:35 Urine RBC >100 /hpf (0-5) H 05/31/17 12:35 Urine WBC 2-5 /hpf (0-5) H 05/31/17 12:35 Ur Epithelial Cells NONE SEEN /lpf (FEW) 05/31/17 12:35 Urine Bacteria NONE SEEN /hpf (NONE SEEN) 05/31/17 12:35 Stool Occult Blood NEGATIVE (NEGATIVE) 06/05/17 06:00 Gentamicin Peak 13.8 ug/ml (4.0-8.0) H 06/11/17 11:05 Gentamicin Trough 0.8 ug/ml (0.2-2.0) 06/11/17 08:00 Vancomycin Trough 10.7 ug/mL (10-20) 06/04/17 09:00 Hepatitis A IgM Ab Negative (Negative) 06/10/17 06:20 Hep Bs Antigen Negative (Negative) 06/10/17 06:20 Hep B Core IgM Ab Negative (Negative) 06/10/17 06:20 Hepatitis C Antibody 6.9 s/co ratio (0.0-0.9) H 06/10/17 06:20 Influenza A (Rapid) NEG FOR INF A 06/05/17 08:00 Influenza B (Rapid) NEG FOR INF B 06/05/17 08:00 Blood Type O POSITIVE 06/26/17 21:27 Antibody Screen NEGATIVE 06/02/17 11:40 Crossmatch See Detail 06/02/17 11:40 - Physical Exam Vitals and I&O: Vital Signs Temp 98.2 F 06/28/17 16:00 Pulse 122 06/28/17 16:00 Resp 25 06/28/17 19:00 BP 99/66 06/28/17 16:00 Pulse Ox 99 06/28/17 19:00 Intake & Output 06/28/17 06/28/17 06/29/17 06:59 18:59 06:59 Intake Total 50 Output Total 750 Balance -700 Weight (lbs) 56.699 kg 56.699 kg Intake: Intake, IV Amount 50 Cefepime 1 gm In Dextrose 50 5% 50 ml @ 100 mls/hr IV Q12HR [facility] Rx#:[id number] Output: Urine 550 Stool 200 Other: Stool Characteristics Liquid Brown Brown Active Medications: Current Medications Acetaminophen (Tylenol 650mg Supp) 650 mg RC Q4HR PRN PRN Reason: FEVER >100.1 Stop: 07/30/17 13:39 Last Admin: 06/27/17 01:53 Dose: 650 mg Acetylcysteine (Mucomyst 20%) 3 ml HHN Q4HRT [facility] Stop: 08/22/17 18:59 Last Admin: 06/28/17 19:00 Dose: Not Given Albuterol Sulfate (Albuterol 2.5mg/3ml Neb Ud) 1.25 mg HHN Q4HRT [facility] Stop: 08/06/17 18:59 Last Admin: 06/28/17 19:00 Dose: 1.25 mg Ascorbic Acid (Vitamin C) 500 mg GT DAILY [facility] Stop: 07/31/17 08:59 Last Admin: 06/28/17 08:46 Dose: 500 mg Bisacodyl (Dulcolax 10 Mg Supp) 10 mg RC Q72HR PRN PRN Reason: Constipation Stop: 07/30/17 13:39 [place] Oil/[place] Balsam/Trypsin (Venelex) 1 appl TP DAILY [facility] Stop: 08/15/17 08:59 Last Admin: 06/28/17 17:53 Dose: 1 appl Cholecalciferol (Vitamin D3) 500 iu PO DAILY [facility] Stop: 07/31/17 08:59 Last Admin: 06/28/17 08:46 Dose: 500 iu Diltiazem HCl (Cardizem) 20 mg IVP Q4H PRN PRN Reason: HR Greater than 130 per min Stop: 08/19/17 17:40 Diltiazem HCl (Cardizem) 60 mg PO Q6HR [facility] Stop: 08/19/17 17:59 Last Admin: 06/28/17 11:23 Dose: 60 mg Famotidine (Pepcid) 20 mg PO BID [facility] Stop: 08/19/17 16:59 Last Admin: 06/28/17 08:46 Dose: 20 mg Filgrastim (Neupogen) 480 mcg SUBQ DAILY [facility] Stop: 08/28/17 08:59 Guaifenesin (Robitussin) 200 mg PO Q4HR PRN PRN Reason: Cough or Congestion Stop: 07/30/17 13:41 Last Admin: 06/10/17 20:59 Dose: 200 mg Norepinephrine Bitartrate 4 mg (/ Dextrose) 254 mls @ 30.48 mls/hr IV TITR PRN ; Protocol; 8 MCG/MIN PRN Reason: BP MAINTENANCE (PER PROTOCOL) Stop: 07/31/17 16:46 Last Titration: 06/03/17 00:00 Dose: 0 mcg/min, 0 mls/hr Meropenem 1 gm/ Sodium (Chloride) 100 mls @ 100 mls/hr IV Q12HR@0900,2100 [facility] Stop: 08/27/17 12:59 Last Admin: 06/28/17 19:43 Dose: 100 mls/hr Vancomycin HCl 1 gm/ Dextrose 250 mls @ 165 mls/hr IV Q12H [facility] Stop: 08/28/17 08:59 Metronidazole (Flagyl) 500 mg in 100 mls @ 100 mls/hr IV Q8HR [facility] Stop: 08/27/17 20:59 Ipratropium [place] (Atrovent Neb 0.5mg/2.5ml) 0.5 mg HHN Q4HRT [facility] Stop: 08/06/17 18:59 Last Admin: 06/28/17 19:00 Dose: 0.5 mg Lactulose (Cephulac) 30 gm PO BID [facility] Stop: 08/03/17 16:59 Last Admin: 06/28/17 08:44 Dose: 30 gm Lorazepam (Ativan) 0.5 mg IVP Q8HR PRN; Protocol PRN Reason: Agitation Stop: 08/14/17 14:52 Last Admin: 06/28/17 11:23 Dose: 0.5 mg Methylprednisolone Sodium Succinate (Solu-Medrol) 60 mg IVP Q8HR [facility] Stop: 08/24/17 12:59 Last Admin: 06/28/17 14:11 Dose: 60 mg Metoclopramide HCl (Reglan) 5 mg PO TID [facility] Stop: 08/16/17 13:59 Last Admin: 06/28/17 14:11 Dose: 5 mg Midodrine (Proamatine) 5 mg PO TID [facility] Stop: 08/10/17 20:59 Last Admin: 06/28/17 14:12 Dose: 5 mg Miscellaneous (Vte Chemical Prophylaxis Screen/ Admission) 1 [facility] PRN PRN PRN Reason: PROTOCOL Stop: 07/31/17 14:00 Miscellaneous (Probiotic Screen) 1 [facility] PRN PRN PRN Reason: PROTOCOL Stop: 07/31/17 16:02 Miscellaneous (Vancomycin Iv Per Pharmacy) 1 [facility] PRN [facility] Stop: 08/27/17 12:44 Multivitamins/Vitamin C (Theragran) 1 tab GT DAILY [facility] Stop: 07/31/17 08:59 Last Admin: 06/28/17 08:45 Dose: 1 tab Ondansetron HCl (Zofran) 4 mg IV Q8H PRN PRN Reason: Nausea / Vomiting Stop: 07/30/17 13:41 Sodium Phosphate (Fleet Enema) 133 ml RC DAILY PRN PRN Reason: Constipation Stop: 07/30/17 13:39 General: Other (non communicative) Abdomen: Other (gastric tube) Extremities: Other (right arm picc) - Procedures Procedures: Procedures Procedure Code Date INSERT EMERGENCY AIRWAY 06882 05/31/17 INSERTION OF ENDOTRACHEAL AIRWAY INTO [place]HE[place], VIA OPENING [id number] 05/31/17 RESPIRATORY VENTILATION, GREATER THAN 96 CONSECUTIVE HOURS [id number] 05/31/17 VENT MGMT INPAT INIT DAY 35156 05/31/17 Assessment/Plan - Problem List Patient Problems: All Active Problems COUGH AND CONGESTION (Acute) - Assessment Assessment: * pancytopenia secondary to bone marrow suppression by sepsis and meds continue neupogen daily until neutropenia resolve follow cbc, Nutritional Asmnt/Malnutr-PDOC - Dietary Evaluation Malnutrition Findings (Please click <Entered> for more info): Nutritional Asmnt/Malnutrition Start: 06/01/17 17: 31 Text: Status: Complete Freq: Document 06/01/17 17:31 SHELBIE (Rec: 06/01/17 17:45 SHELBIE [id number]) Nutritional Asmnt/Malnutrition Patient General Information Nutritional Screening High Risk Consult Diagnosis renal failure, prespiratory failure r/o PNA Pertinent Medical Hx/Surgical Hx dementia, MR anemia, spastic quadriplegia, cerebral palsy, seizure, aspiration PNA, s/p respiratory failure, spsis, hyponatremia, gastroenteritis, PEG Subjective Information Consult received for Anibal 13 and pressure ulcer. Pt seen resting in bed at the time of visit, intubated, non-verbal noted. TF not running at this time. Current Diet Order/ Nutrition Support Isosource 1.5 87ml/hr x 17hr Pertinent Medications vitamin C, vitamin D3, D5w, teragran, piperacillin, miralax, cancomycin Pertinent Labs 06/01 na 160, Cl 120, K 4.1, BUN 29, Cr 0.3, Glucose 242, A1c 5.1, Ca 8.4, Mg 2.8 Nutritional Hx/Data Height 1.68 m Height (Calculated Centimeters) 167.6 Current Weight (lbs) 47.854 kg Weight (Calculated Kilograms) 47.9 Weight (Calculated Grams) 52578.0 [place] Body Weight 142 % [place] Body Weight 94 Body Mass Index (BMI) 17.0 Weight Status Underweight GI Symptoms GI Symptoms None Last BM none Difficult in: None Usual diet at home Jevity 1.5 87ml/hr x 17hr Skin Integrity/Comment: decubitus ulceration to sacrum Estimated Nutritional Goals Calories/Kcals/Kg 25-30 Kcals Calculated 2525-5123 based on IBW 65kg Protein g/k.2-1.4 Protein Calculated 78-91 consider respiratory failure and skin probelm Nutritional Problem 1. Problem Problem excessive intake from enteral feeding Etiology current TF regimen providing excessive calorie and protein than estimated nutritional needs Signs/Symptoms: current TF providing 114% of calorie needs and 110% of protein needs Malnutrition Alert Protein-Calorie Malnutrition N/A Is there a minimum of two criteria No selected? Query Text:Check all the applicable criteria. A minimum of two criteria are recommended for diagnosis of either severe or non-severe malnutrition. Intervention/Recommendation Comments 1. Recommend modify TF rate to 70ml/hr x 17hr to meet 100% of nutritional needs and avoid overfeeding. 2. Monitor TF rate, tolerance, wt weekly, skin integrity and labs 3. F/U as moderate risk in 3-5 days, 04/25-04/27 Expected Outcomes/Goals Expected Outcomes/Goals 1. Pt to meet 75-100% of nutritional needs via nutrition support with tolerance 2. 2. Wt stability, skin to remain intact, labs to approach WNL.
[2017-06-29] MEDS: Lactulose 10 Gm/15 mL 30mL UDC PO SCH ×3 (00:08→17:39)
[2017-06-29] MEDS: Diltiazem 30 mg Tab PO SCH ×5 (00:08→22:00)
[2017-06-29] MEDS: metroNIDAZOLE 500mg/NS 100mL 500 MG/100 ML BAG IV SCH ×2 (00:11→05:56)
[2017-06-29] MEDS: Ipratropium Neb 0.5 mg/2.5 mL UD HHN SCH ×6 (03:13→22:40)
[2017-06-29] MEDS: Albuterol Nebulizer 2.5mg/3mL HHN SCH ×6 (03:13→22:39)
[2017-06-29 05:05] LABS: MEAN CELL VOLUME 91.7 fl (80-99); RED CELL DISTRIBUTION WIDTH 17.6 % (11.5-20.0)
[2017-06-29 05:19] LABS: MEAN CORPUSCULAR HEMOGLOBIN 30.3 pg (26.0-30.0); MEAN PLATELET VOLUME 6.9 fl; RED BLOOD COUNT 2.58 Mil/cmm (4.30-5.70)
[2017-06-29 05:22] LABS: HEMATOCRIT 23.6 % (41.0-60); HEMOGLOBIN 7.8 gm/dL (12-16); PLATELET COUNT 16 Th/cmm (150-400); WHITE BLOOD COUNT 2.1 Th/cmm (4.8-10.8)
[2017-06-29 05:26] LABS: INR 1.04 (0.5-1.4); PROTHROMBIN TIME (TEST) 10.8 SECONDS (9.5-11.5)
[2017-06-29 05:39] LABS: ALB/GLOB RATIO 0.8 (1.0-1.8); ALKALINE PHOSPHATASE 64 U/L (34-104); ANION GAP 7.2 (7.0-16.0); BILIRUBIN,TOTAL 0.4 mg/dL (0.3-1.0); BUN - UREA NITROGEN 30 mg/dL (7-25); CALCIUM SERUM 9.1 mg/dL (8.6-10.3); CARBON DIOXIDE 33.4 mEq/L (21.0-31.0); CHLORIDE 123 mEq/L (98-107); CREATININE - SERUM 0.6 mg/dL (0.7-1.3); GFR AFRICAN-AMERICAN > 60.0 ml/min (>90); GFR NON AFRICAN-AMERICAN > 60.0 ml/min; GLUCOSE 179 mg/dL (70-105); POTASSIUM SERUM 3.6 mEq/L (3.5-5.1); SGOT 17 U/L (13-39); SGPT/ALT 49 U/L (7-52); TOTAL PROTEIN,SERUM 4.4 gm/dL (6.0-8.3)
[2017-06-29 05:47] LABS: SODIUM SERUM 160 mEq/L (136-145)
[2017-06-29 06:10] LABS: BAND NEUTROPHILE 14 % (0-10); LYMPHOCYTE 12 % (20-50); MONOCYTE 1 % (2-10); NEUTROPHILS 73 % (40-80); TOTAL CELLS COUNTED 100
[2017-06-29 06:11] LABS: PLATELET ESTIMATE DECREASED PLATELETS (NORMAL)
[2017-06-29] MEDS ORDERED: Meropenem 1 GM in Sodium Chloride 0.9% 100 ML IV SCH (09:00)
[2017-06-29] MEDS ORDERED: Levofloxacin 500mg/100mL 500 MG/100 ML BAG IV SCH (09:30)
--- NOTE | 2017-06-29 09:32 | Infectious Disease Prog Note ---
Infectious Disease Subjective - Review of Systems Service Date: 07/06/17 Subjective: No fever. Doing better now. pancytopenic. Infectious Disease Objective - Results Result Diagrams: 06/29/17 04:50 06/29/17 04:50 Recent Labs: Laboratory Last Values WBC 2.1 Th/cmm (4.8-10.8) L* D 06/29/17 04:50 RBC 2.58 Mil/cmm (4.30-5.70) L 06/29/17 04:50 Hgb 7.8 gm/dL (12-16) L* 06/29/17 04:50 Hct 23.6 % (41.0-60) L 06/29/17 04:50 MCV 91.7 fl (80-99) 06/29/17 04:50 MCH 30.3 pg (26.0-30.0) H 06/29/17 04:50 MCHC Differential 33.0 pg (28.0-36.0) 06/29/17 04:50 RDW 17.6 % (11.5-20.0) 06/29/17 04:50 Plt Count 16 Th/cmm (150-400) L* 06/29/17 04:50 MPV 6.9 fl 06/29/17 04:50 Neutrophils % [employer] 06/25/17 05:20 Band Neutrophils % 14 % (0-10) H 06/29/17 04:50 Lymphocytes % [employer] 06/25/17 05:20 Monocytes % [employer] 06/25/17 05:20 Eosinophils % [employer] 06/25/17 05:20 Basophils % [employer] 06/25/17 05:20 Neutrophils (Manual) 73 % (40-80) 06/29/17 04:50 Lymphocytes 12 % (20-50) L 06/29/17 04:50 Monocytes 1 % (2-10) L 06/29/17 04:50 Eosinophils 1 % (0-5) 06/16/17 04:25 Metamyelocytes 2 % (0-0) H 06/23/17 05:00 Myelocytes 1 % 06/23/17 05:00 Hypochromia 1+ 06/23/17 05:00 Platelet Estimate DECREASED PLATELETS (NORMAL) 06/29/17 04:50 Anisocytosis 1+ 06/23/17 05:00 Plt Count 16 Th/cmm (150-750) L* 06/29/17 04:50 PT 10.8 SECONDS (9.5-11.5) 06/29/17 04:50 INR 1.04 (0.5-1.4) 06/29/17 04:50 PTT (Actin FS) 25.0 SECONDS (26.0-38.0) L 06/29/17 04:50 Fibrinogen 500.0 mg/dL (200.0-400.0) H 06/29/17 04:50 D-Dimer 1140 ng/mL (100-400) H 06/29/17 04:50 Specimen Source Arterial 06/26/17 08:54 Sample Site RB 06/26/17 08:54 pH 7.56 (7.35-7.45) H* 06/26/17 08:54 pCO2 34.0 mmHg (35.0-45.0) L 06/26/17 08:54 pO2 60.0 mmHg (80.0-100.0) L 06/26/17 08:54 HCO3 31.1 mEq/L (20.0-26.0) H 06/26/17 08:54 Base Excess 8.0 mEq/L (-3.0-3.0) H 06/26/17 08:54 O2 Saturation 94.0 % (92.0-100.0) 06/26/17 08:54 Endy Test Positive 06/26/17 08:54 Vent Rate 12 06/26/17 08:54 Inspired O2 60 06/26/17 08:54 Tidal Volume N/A 06/26/17 08:54 PEEP N/A 06/26/17 08:54 Pressure (ins/psv/peep) N/A 06/26/17 08:54 Critical Value DM 06/26/17 08:54 Sodium 160 mEq/L (136-145) H* 06/29/17 04:50 Potassium 3.6 mEq/L (3.5-5.1) 06/29/17 04:50 Chloride 123 mEq/L (98-107) H 06/29/17 04:50 Carbon Dioxide 33.4 mEq/L (21.0-31.0) H 06/29/17 04:50 Anion Gap 7.2 (7.0-16.0) 06/29/17 04:50 BUN 30 mg/dL (7-25) H 06/29/17 04:50 Creatinine 0.6 mg/dL (0.7-1.3) L 06/29/17 04:50 Est GFR ( Amer) > 60.0 ml/min (>90) 06/29/17 04:50 Est GFR (Non-Af Amer) > 60.0 ml/min 06/29/17 04:50 BUN/Creatinine Ratio 50.0 06/29/17 04:50 Glucose 179 mg/dL (70-105) H 06/29/17 04:50 POC Glucose 124 MG/DL (70 - 105) H 06/14/17 05:50 Hemoglobin A1c % 5.1 % (4.0-6.0) 06/01/17 05:30 Whole Bld Lactic Acid 3.45 mmol/L (0.60-1.99) H* 06/03/17 06:45 Calcium 9.1 mg/dL (8.6-10.3) 06/29/17 04:50 Magnesium 2.1 mg/dL (1.9-2.7) 06/26/17 06:05 Total Bilirubin 0.4 mg/dL (0.3-1.0) 06/29/17 04:50 AST 17 U/L (13-39) 06/29/17 04:50 ALT 49 U/L (7-52) 06/29/17 04:50 Alkaline Phosphatase 64 U/L (34-104) 06/29/17 04:50 Ammonia 54 umol/L (16-53) H 06/20/17 18:05 B-Natriuretic Peptide 22.1 pg/mL (5.0-100.0) 06/26/17 06:05 Total Protein 4.4 gm/dL (6.0-8.3) L 06/29/17 04:50 Albumin 2.0 gm/dL (4.2-5.5) L 06/29/17 04:50 Globulin 2.4 gm/dL 06/29/17 04:50 Albumin/Globulin Ratio 0.8 (1.0-1.8) L 06/29/17 04:50 TSH 0.72 uIU/ml (0.34-5.60) 06/01/17 05:30 Urine Source CATH 05/31/17 12:35 Urine Color YELLOW 05/31/17 12:35 Urine Clarity CLOUDY (CLEAR) 05/31/17 12:35 Urine pH 8.5 (4.6 - 8.0) 05/31/17 12:35 Ur Specific [place] 1.010 (1.005-1.030) 05/31/17 12:35 Urine Protein 30 mg/dL (NEGATIVE) H 05/31/17 12:35 Urine Glucose (UA) NEGATIVE mg/dL (NEGATIVE) 05/31/17 12:35 Urine Ketones NEGATIVE mg/dL (NEGATIVE) 05/31/17 12:35 Urine Blood MODERATE (NEGATIVE) H 05/31/17 12:35 Urine Nitrate NEGATIVE (NEGATIVE) 05/31/17 12:35 Urine Bilirubin NEGATIVE (NEGATIVE) 05/31/17 12:35 Urine Urobilinogen 0.2 E.U./dL (0.2 - 1.0) 05/31/17 12:35 Ur Leukocyte Esterase NEGATIVE (NEGATIVE) 05/31/17 12:35 Urine RBC >100 /hpf (0-5) H 05/31/17 12:35 Urine WBC 2-5 /hpf (0-5) H 05/31/17 12:35 Ur Epithelial Cells NONE SEEN /lpf (FEW) 05/31/17 12:35 Urine Bacteria NONE SEEN /hpf (NONE SEEN) 05/31/17 12:35 Stool Occult Blood NEGATIVE (NEGATIVE) 06/05/17 06:00 Gentamicin Peak 13.8 ug/ml (4.0-8.0) H 06/11/17 11:05 Gentamicin Trough 0.8 ug/ml (0.2-2.0) 06/11/17 08:00 Vancomycin Trough 10.7 ug/mL (10-20) 06/04/17 09:00 Hepatitis A IgM Ab Negative (Negative) 06/10/17 06:20 Hep Bs Antigen Negative (Negative) 06/10/17 06:20 Hep B Core IgM Ab Negative (Negative) 06/10/17 06:20 Hepatitis C Antibody 6.9 s/co ratio (0.0-0.9) H 06/10/17 06:20 Influenza A (Rapid) NEG FOR INF A 06/05/17 08:00 Influenza B (Rapid) NEG FOR INF B 06/05/17 08:00 Blood Type O POSITIVE 06/26/17 21:27 Antibody Screen NEGATIVE 06/02/17 11:40 Crossmatch See Detail 06/02/17 11:40 - Physical Exam Vitals and I&O: Vital Signs Temp 98.5 F 06/29/17 07:38 Pulse 117 06/29/17 07:38 Resp 19 06/29/17 07:38 BP 106/71 06/29/17 07:38 Pulse Ox 97 06/29/17 07:38 Intake & Output 06/28/17 06/29/17 06/29/17 18:59 06:59 18:59 Intake Total 950 Output Total 490 Balance 460 Weight (lbs) 56.699 kg 55.883 kg Intake: Intake, IV Amount 200 metroNIDAZOLE 500mg/NS 200 100mL 500 mg In 100 ml @ 100 mls/hr IV Q8HR [facility] Rx #:[id number] Tube Feeding 750 Output: Urine 450 Stool 40 Other: Stool Characteristics Brown Liquid Brown Active Medications: Current Medications Acetaminophen (Tylenol 650mg Supp) 650 mg RC Q4HR PRN PRN Reason: FEVER >100.1 Stop: 07/30/17 13:39 Last Admin: 06/27/17 01:53 Dose: 650 mg Acetylcysteine (Mucomyst 20%) 3 ml HHN Q4HRT [facility] Stop: 08/22/17 18:59 Last Admin: 06/29/17 07:26 Dose: Not Given Albuterol Sulfate (Albuterol 2.5mg/3ml Neb Ud) 1.25 mg HHN Q4HRT [facility] Stop: 08/06/17 18:59 Last Admin: 06/29/17 07:26 Dose: 1.25 mg Ascorbic Acid (Vitamin C) 500 mg GT DAILY [facility] Stop: 07/31/17 08:59 Last Admin: 06/28/17 08:46 Dose: 500 mg Bisacodyl (Dulcolax 10 Mg Supp) 10 mg RC Q72HR PRN PRN Reason: Constipation Stop: 07/30/17 13:39 Marathon Oil/[place] Balsam/Trypsin (Venelex) 1 appl TP DAILY [facility] Stop: 08/15/17 08:59 Last Admin: 06/28/17 17:53 Dose: 1 appl Cholecalciferol (Vitamin D3) 500 iu PO DAILY [facility] Stop: 07/31/17 08:59 Last Admin: 06/28/17 08:46 Dose: 500 iu Diltiazem HCl (Cardizem) 20 mg IVP Q4H PRN PRN Reason: HR Greater than 130 per min Stop: 08/19/17 17:40 Diltiazem HCl (Cardizem) 60 mg PO Q6HR [facility] Stop: 08/19/17 17:59 Last Admin: 06/29/17 05:57 Dose: 60 mg Famotidine (Pepcid) 20 mg PO BID [facility] Stop: 08/19/17 16:59 Last Admin: 06/29/17 00:07 Dose: 20 mg Filgrastim (Neupogen) 480 mcg SUBQ DAILY [facility] Stop: 08/28/17 08:59 Guaifenesin (Robitussin) 200 mg PO Q4HR PRN PRN Reason: Cough or Congestion Stop: 07/30/17 13:41 Last Admin: 06/10/17 20:59 Dose: 200 mg Norepinephrine Bitartrate 4 mg (/ Dextrose) 254 mls @ 30.48 mls/hr IV TITR PRN ; Protocol; 8 MCG/MIN PRN Reason: BP MAINTENANCE (PER PROTOCOL) Stop: 07/31/17 16:46 Last Titration: 06/03/17 00:00 Dose: 0 mcg/min, 0 mls/hr Meropenem 1 gm/ Sodium (Chloride) 100 mls @ 100 mls/hr IV Q12HR [facility] Stop: 08/28/17 08:59 Ipratropium [place] (Atrovent Neb 0.5mg/2.5ml) 0.5 mg HHN Q4HRT [facility] Stop: 08/06/17 18:59 Last Admin: 06/29/17 07:26 Dose: 0.5 mg Lactulose (Cephulac) 30 gm PO BID [facility] Stop: 08/03/17 16:59 Last Admin: 06/29/17 00:08 Dose: 30 gm Methylprednisolone Sodium Succinate (Solu-Medrol) 60 mg IVP Q8HR [facility] Stop: 08/24/17 12:59 Last Admin: 06/29/17 05:56 Dose: 60 mg Metoclopramide HCl (Reglan) 5 mg PO TID [facility] Stop: 08/16/17 13:59 Last Admin: 06/29/17 00:11 Dose: 5 mg Midodrine (Proamatine) 5 mg PO TID [facility] Stop: 08/10/17 20:59 Last Admin: 06/29/17 00:12 Dose: Not Given Miscellaneous (Vte Chemical Prophylaxis Screen/ Admission) 1 ea MC PRN PRN PRN Reason: PROTOCOL Stop: 07/31/17 14:00 Miscellaneous (Probiotic Screen) 1 ea MC PRN PRN PRN Reason: PROTOCOL Stop: 07/31/17 16:02 Multivitamins/Vitamin C (Theragran) 1 tab GT DAILY [facility] Stop: 07/31/17 08:59 Last Admin: 06/28/17 08:45 Dose: 1 tab Ondansetron HCl (Zofran) 4 mg IV Q8H PRN PRN Reason: Nausea / Vomiting Stop: 07/30/17 13:41 Sodium Phosphate (Fleet Enema) 133 ml RC DAILY PRN PRN Reason: Constipation Stop: 07/30/17 13:39 General: no acute distress, well developed, well nourished HEENT: atraumatic, normocephalic, PERRLA Neck: supple, no thyromegaly Cardiovascular: S1S2, regular Lungs: clear to auscultation bilaterally, clear to percussion Abdomen: soft, bowel sounds, no tender, no distended, no hepatomegaly Extremities: no cyanosis, no clubbing, no edema Neurological: awake, alert, oriented Skin: other - Procedures Procedures: Procedures Procedure Code Date INSERT EMERGENCY AIRWAY 24055 05/31/17 INSERTION OF ENDOTRACHEAL AIRWAY INTO [place], VIA OPENING [id number] 05/31/17 RESPIRATORY VENTILATION, GREATER THAN 96 CONSECUTIVE HOURS [id number] 05/31/17 VENT MGMT INPAT INIT DAY [id number] 05/31/17 Infectious Disease Assmt/Plan - Problem List Patient Problems: All Active Problems COUGH AND CONGESTION (Acute) - Assessment Assessment: 1. Sepsis. treated. 2. G Tube site ESBL + E coli. Colonizer. 3. Pneumonia. Aspiration, HAP vs Atypical. 4. Acute respiratory failure, improved.. 5. Altered mental status unresponsiveness, likely secondary to toxic metabolic encephalopathy. improved. 6. Cerebral palsy. 7. Aspiration again. 8. pancytopenia. - Plan Plan: pancytopenia, seems likely due to pepcid, may need further eval by hematology windows consultant. Antibiotics were started recently with cefepime, on 06/25/2017 for ? pancytopenia ( started prior to 06/23/2017), It was changed to vanco IV, on meropenem on 06/28/2017. So, Pancytopenia must be due to some other cause besides antibiotics. Antibiotic ch, will start tygacil and continue meropenem. legionella and mycoplasma serologies. Neutropenic precautions. Check CXR. Nutritional Asmnt/Malnutr-PDOC - Dietary Evaluation Malnutrition Findings (Please click <Entered> for more info): Nutritional Asmnt/Malnutrition Start: 06/01/17 17: 31 Text: Status: Complete Freq: Document 06/01/17 17:31 LCHENG (Rec: 06/01/17 17:45 LCHENG [id number]) Nutritional Asmnt/Malnutrition Patient General Information Nutritional Screening High Risk Consult Diagnosis renal failure, prespiratory failure r/o PNA Pertinent Medical Hx/Surgical Hx dementia, MR anemia, spastic quadriplegia, cerebral palsy, seizure, aspiration PNA, s/p respiratory failure, spsis, hyponatremia, gastroenteritis, PEG Subjective Information Consult received for Anibal 13 and pressure ulcer. Pt seen resting in bed at the time of visit, intubated, non-verbal noted. TF not running at this time. Current Diet Order/ Nutrition Support Isosource 1.5 87ml/hr x 17hr Pertinent Medications vitamin C, vitamin D3, D5w, teragran, piperacillin, miralax, cancomycin Pertinent Labs 06/01 na 160, Cl 120, K 4.1, BUN 29, Cr 0.3, Glucose 242, A1c 5.1, Ca 8.4, Mg 2.8 Nutritional Hx/Data Height 1.68 m Height (Calculated Centimeters) 167.6 Current Weight (lbs) 47.854 kg Weight (Calculated Kilograms) 47.9 Weight (Calculated Grams) 28468.0 [place] Body Weight 142 % [place] Body Weight 94 Body Mass Index (BMI) 17.0 Weight Status Underweight GI Symptoms GI Symptoms None Last BM none Difficult in: None Usual diet at home Jevity 1.5 87ml/hr x 17hr Skin Integrity/Comment: decubitus ulceration to sacrum Estimated Nutritional Goals Calories/Kcals/Kg 25-30 Kcals Calculated [id number] based on IBW 65kg Protein g/k.2-1.4 Protein Calculated 78-91 consider respiratory failure and skin probelm Nutritional Problem 1. Problem Problem excessive intake from enteral feeding Etiology current TF regimen providing excessive calorie and protein than estimated nutritional needs Signs/Symptoms: current TF providing 114% of calorie needs and 110% of protein needs Malnutrition Alert Protein-Calorie Malnutrition N/A Is there a minimum of two criteria No selected? Query Text:Check all the applicable criteria. A minimum of two criteria are recommended for diagnosis of either severe or non-severe malnutrition. Intervention/Recommendation Comments 1. Recommend modify TF rate to 70ml/hr x 17hr to meet 100% of nutritional needs and avoid overfeeding. 2. Monitor TF rate, tolerance, wt weekly, skin integrity and labs 3. F/U as moderate risk in 3-5 days, 04/25-04/27 Expected Outcomes/Goals Expected Outcomes/Goals 1. Pt to meet 75-100% of nutritional needs via nutrition support with tolerance 2. 2. Wt stability, skin to remain intact, labs to approach WNL.
[2017-06-29] MEDS: Multivitamin Tab GT SCH (09:55)
[2017-06-29] MEDS: Venelex 60gm Tube TP SCH (10:01)
[2017-06-29] MEDS: Dextrose 5% 1,000 ML IV SCH (13:44)
[2017-06-29] MEDS: Meropenem 1 GM in Sodium Chloride 0.9% 100 ML IV SCH ×2 (13:49→18:12)
--- NOTE | 2017-06-29 14:21 | Internal Medicine Prog Note ---
Internal Medicine Subjective - Subjective Service Date: 06/29/17 Patient seen and examined:: with staff Patient is:: awake, non-verbal, non-interactive, in bed Patient Complaints of:: congestion Per staff patient has:: no adverse event, tolerating meds Internal Medicine Objective - Results Result Diagrams: 06/29/17 04:50 06/29/17 04:50 Recent Labs: Laboratory Last Values WBC 2.1 Th/cmm (4.8-10.8) L* D 06/29/17 04:50 RBC 2.58 Mil/cmm (4.30-5.70) L 06/29/17 04:50 Hgb 7.8 gm/dL (12-16) L* 06/29/17 04:50 Hct 23.6 % (41.0-60) L 06/29/17 04:50 MCV 91.7 fl (80-99) 06/29/17 04:50 MCH 30.3 pg (26.0-30.0) H 06/29/17 04:50 MCHC Differential 33.0 pg (28.0-36.0) 06/29/17 04:50 RDW 17.6 % (11.5-20.0) 06/29/17 04:50 Plt Count 16 Th/cmm (150-400) L* 06/29/17 04:50 MPV 6.9 fl 06/29/17 04:50 Neutrophils % DAIRY NUTRITION SPECIALIST 06/25/17 05:20 Band Neutrophils % 14 % (0-10) H 06/29/17 04:50 Lymphocytes % DAIRY NUTRITION SPECIALIST 06/25/17 05:20 Monocytes % DAIRY NUTRITION SPECIALIST 06/25/17 05:20 Eosinophils % DAIRY NUTRITION SPECIALIST 06/25/17 05:20 Basophils % DAIRY NUTRITION SPECIALIST 06/25/17 05:20 Neutrophils (Manual) 73 % (40-80) 06/29/17 04:50 Lymphocytes 12 % (20-50) L 06/29/17 04:50 Monocytes 1 % (2-10) L 06/29/17 04:50 Eosinophils 1 % (0-5) 06/16/17 04:25 Metamyelocytes 2 % (0-0) H 06/23/17 05:00 Myelocytes 1 % 06/23/17 05:00 Hypochromia 1+ 06/23/17 05:00 Platelet Estimate DECREASED PLATELETS (NORMAL) 06/29/17 04:50 Anisocytosis 1+ 06/23/17 05:00 Plt Count 16 Th/cmm (150-750) L* 06/29/17 04:50 PT 10.8 SECONDS (9.5-11.5) 06/29/17 04:50 INR 1.04 (0.5-1.4) 06/29/17 04:50 PTT (Actin FS) 25.0 SECONDS (26.0-38.0) L 06/29/17 04:50 Fibrinogen 500.0 mg/dL (200.0-400.0) H 06/29/17 04:50 D-Dimer 1140 ng/mL (100-400) H 06/29/17 04:50 Specimen Source Arterial 06/26/17 08:54 Sample Site RB 06/26/17 08:54 pH 7.56 (7.35-7.45) H* 06/26/17 08:54 pCO2 34.0 mmHg (35.0-45.0) L 06/26/17 08:54 pO2 60.0 mmHg (80.0-100.0) L 06/26/17 08:54 HCO3 31.1 mEq/L (20.0-26.0) H 06/26/17 08:54 Base Excess 8.0 mEq/L (-3.0-3.0) H 06/26/17 08:54 O2 Saturation 94.0 % (92.0-100.0) 06/26/17 08:54 Endy Test Positive 06/26/17 08:54 Vent Rate 12 06/26/17 08:54 Inspired O2 60 06/26/17 08:54 Tidal Volume N/A 06/26/17 08:54 PEEP N/A 06/26/17 08:54 Pressure (ins/psv/peep) N/A 06/26/17 08:54 Critical Value DM 06/26/17 08:54 Sodium 160 mEq/L (136-145) H* 06/29/17 04:50 Potassium 3.6 mEq/L (3.5-5.1) 06/29/17 04:50 Chloride 123 mEq/L (98-107) H 06/29/17 04:50 Carbon Dioxide 33.4 mEq/L (21.0-31.0) H 06/29/17 04:50 Anion Gap 7.2 (7.0-16.0) 06/29/17 04:50 BUN 30 mg/dL (7-25) H 06/29/17 04:50 Creatinine 0.6 mg/dL (0.7-1.3) L 06/29/17 04:50 Est GFR ( Amer) > 60.0 ml/min (>90) 06/29/17 04:50 Est GFR (Non-Af Amer) > 60.0 ml/min 06/29/17 04:50 BUN/Creatinine Ratio 50.0 06/29/17 04:50 Glucose 179 mg/dL (70-105) H 06/29/17 04:50 POC Glucose 124 MG/DL (70 - 105) H 06/14/17 05:50 Hemoglobin A1c % 5.1 % (4.0-6.0) 06/01/17 05:30 Whole Bld Lactic Acid 3.45 mmol/L (0.60-1.99) H* 06/03/17 06:45 Calcium 9.1 mg/dL (8.6-10.3) 06/29/17 04:50 Magnesium 2.1 mg/dL (1.9-2.7) 06/26/17 06:05 Total Bilirubin 0.4 mg/dL (0.3-1.0) 06/29/17 04:50 AST 17 U/L (13-39) 06/29/17 04:50 ALT 49 U/L (7-52) 06/29/17 04:50 Alkaline Phosphatase 64 U/L (34-104) 06/29/17 04:50 Ammonia 54 umol/L (16-53) H 06/20/17 18:05 B-Natriuretic Peptide 22.1 pg/mL (5.0-100.0) 06/26/17 06:05 Total Protein 4.4 gm/dL (6.0-8.3) L 06/29/17 04:50 Albumin 2.0 gm/dL (4.2-5.5) L 06/29/17 04:50 Globulin 2.4 gm/dL 06/29/17 04:50 Albumin/Globulin Ratio 0.8 (1.0-1.8) L 06/29/17 04:50 TSH 0.72 uIU/ml (0.34-5.60) 06/01/17 05:30 Urine Source CATH 05/31/17 12:35 Urine Color YELLOW 05/31/17 12:35 Urine Clarity CLOUDY (CLEAR) 05/31/17 12:35 Urine pH 8.5 (4.6 - 8.0) 05/31/17 12:35 Ur Specific [place] 1.010 (1.005-1.030) 05/31/17 12:35 Urine Protein 30 mg/dL (NEGATIVE) H 05/31/17 12:35 Urine Glucose (UA) NEGATIVE mg/dL (NEGATIVE) 05/31/17 12:35 Urine Ketones NEGATIVE mg/dL (NEGATIVE) 05/31/17 12:35 Urine Blood MODERATE (NEGATIVE) H 05/31/17 12:35 Urine Nitrate NEGATIVE (NEGATIVE) 05/31/17 12:35 Urine Bilirubin NEGATIVE (NEGATIVE) 05/31/17 12:35 Urine Urobilinogen 0.2 E.U./dL (0.2 - 1.0) 05/31/17 12:35 Ur Leukocyte Esterase NEGATIVE (NEGATIVE) 05/31/17 12:35 Urine RBC >100 /hpf (0-5) H 05/31/17 12:35 Urine WBC 2-5 /hpf (0-5) H 05/31/17 12:35 Ur Epithelial Cells NONE SEEN /lpf (FEW) 05/31/17 12:35 Urine Bacteria NONE SEEN /hpf (NONE SEEN) 05/31/17 12:35 Stool Occult Blood NEGATIVE (NEGATIVE) 06/05/17 06:00 Gentamicin Peak 13.8 ug/ml (4.0-8.0) H 06/11/17 11:05 Gentamicin Trough 0.8 ug/ml (0.2-2.0) 06/11/17 08:00 Vancomycin Trough 10.7 ug/mL (10-20) 06/04/17 09:00 Hepatitis A IgM Ab Negative (Negative) 06/10/17 06:20 Hep Bs Antigen Negative (Negative) 06/10/17 06:20 Hep B Core IgM Ab Negative (Negative) 06/10/17 06:20 Hepatitis C Antibody 6.9 s/co ratio (0.0-0.9) H 06/10/17 06:20 Influenza A (Rapid) NEG FOR INF A 06/05/17 08:00 Influenza B (Rapid) NEG FOR INF B 06/05/17 08:00 Blood Type O POSITIVE 06/26/17 21:27 Antibody Screen NEGATIVE 06/02/17 11:40 Crossmatch See Detail 06/02/17 11:40 - Physical Exam Vitals and I&O: Vital Signs Temp 98.6 F 06/29/17 11:10 Pulse 126 06/29/17 13:43 Resp 18 06/29/17 11:10 BP 132/64 06/29/17 11:10 Pulse Ox 96 06/29/17 11:10 Intake & Output 06/28/17 06/29/17 06/29/17 18:59 06:59 18:59 Intake Total 950 Output Total 490 Balance 460 Weight (lbs) 125 lb 123 lb 3.2 oz Intake: Intake, IV Amount 200 metroNIDAZOLE 500mg/NS 200 100mL 500 mg In 100 ml @ 100 mls/hr IV Q8HR [facility] Rx #:[id number] Tube Feeding 750 Output: Urine 450 Stool 40 Other: Stool Characteristics Brown Liquid Liquid Brown Brown Active Medications: Current Medications Acetaminophen (Tylenol 650mg Supp) 650 mg RC Q4HR PRN PRN Reason: FEVER >100.1 Stop: 07/30/17 13:39 Last Admin: 06/29/17 10:17 Dose: 650 mg Acetylcysteine (Mucomyst 20%) 3 ml HHN Q4HRT [facility] Stop: 08/22/17 18:59 Last Admin: 06/29/17 11:02 Dose: Not Given Albuterol Sulfate (Albuterol 2.5mg/3ml Neb Ud) 1.25 mg HHN Q4HRT [facility] Stop: 08/06/17 18:59 Last Admin: 06/29/17 11:02 Dose: 1.25 mg Ascorbic Acid (Vitamin C) 500 mg GT DAILY [facility] Stop: 07/31/17 08:59 Last Admin: 06/29/17 09:55 Dose: 500 mg Bisacodyl (Dulcolax 10 Mg Supp) 10 mg RC Q72HR PRN PRN Reason: Constipation Stop: 07/30/17 13:39 [place] Oil/[place] Balsam/Trypsin (Venelex) 1 appl TP DAILY [facility] Stop: 08/15/17 08:59 Last Admin: 06/29/17 10:01 Dose: 1 appl Cholecalciferol (Vitamin D3) 500 iu PO DAILY [facility] Stop: 07/31/17 08:59 Last Admin: 06/29/17 09:55 Dose: 500 iu Diltiazem HCl (Cardizem) 20 mg IVP Q4H PRN PRN Reason: HR Greater than 130 per min Stop: 08/19/17 17:40 Diltiazem HCl (Cardizem) 30 mg PO TID [facility] Stop: 08/28/17 13:59 Last Admin: 06/29/17 13:43 Dose: 30 mg Filgrastim (Neupogen) 480 mcg SUBQ DAILY [facility] Stop: 08/28/17 08:59 Last Admin: 06/29/17 12:27 Dose: 480 mcg Guaifenesin (Robitussin) 200 mg PO Q4HR PRN PRN Reason: Cough or Congestion Stop: 07/30/17 13:41 Last Admin: 06/10/17 20:59 Dose: 200 mg Norepinephrine Bitartrate 4 mg (/ Dextrose) 254 mls @ 30.48 mls/hr IV TITR PRN ; Protocol; 8 MCG/MIN PRN Reason: BP MAINTENANCE (PER PROTOCOL) Stop: 07/31/17 16:46 Last Titration: 06/03/17 00:00 Dose: 0 mcg/min, 0 mls/hr Tigecycline 50 mg/ Sodium (Chloride) 100 mls @ 100 mls/hr IV Q12H [facility] Stop: 08/28/17 09:44 Meropenem 1 gm/ Sodium (Chloride) 100 mls @ 100 mls/hr IV Q8H [facility] Stop: 08/28/17 09:59 Last Admin: 06/29/17 13:49 Dose: 100 mls/hr Dextrose (D5w) 1,000 mls @ 50 mls/hr IV .Q20H [facility] Stop: 08/28/17 13:29 Last Admin: 06/29/17 13:44 Dose: 50 mls/hr Ipratropium [place] (Atrovent Neb 0.5mg/2.5ml) 0.5 mg HHN Q4HRT [facility] Stop: 08/06/17 18:59 Last Admin: 06/29/17 11:02 Dose: 0.5 mg Lactulose (Cephulac) 30 gm PO BID [facility] Stop: 03/09/18 16:59 Last Admin: 06/29/17 09:54 Dose: 30 gm Methylprednisolone Sodium Succinate (Solu-Medrol) 60 mg IVP Q8HR [facility] Stop: 08/24/17 12:59 Last Admin: 06/29/17 12:27 Dose: 60 mg Metoclopramide HCl (Reglan) 5 mg PO TID [facility] Stop: 08/16/17 13:59 Last Admin: 06/29/17 09:54 Dose: 5 mg Midodrine (Proamatine) 5 mg PO TID [facility] Stop: 08/10/17 20:59 Last Admin: 06/29/17 09:54 Dose: 5 mg Miscellaneous (Vte Chemical Prophylaxis Screen/ Admission) 1 ea PRN PRN PRN Reason: PROTOCOL Stop: 07/31/17 14:00 Miscellaneous (Probiotic Screen) 1 ea PRN PRN PRN Reason: PROTOCOL Stop: 07/31/17 16:02 Multivitamins/Vitamin C (Theragran) 1 tab GT DAILY [facility] Stop: 07/31/17 08:59 Last Admin: 06/29/17 09:55 Dose: 1 tab Ondansetron HCl (Zofran) 4 mg IV Q8H PRN PRN Reason: Nausea / Vomiting Stop: 07/30/17 13:41 Sodium Phosphate (Fleet Enema) 133 ml RC DAILY PRN PRN Reason: Constipation Stop: 07/30/17 13:39 General: weak, congested HEENT: NC/AT, PERRLA Neck: No LAD, deformity Lungs: congested, rales, ronchi Cardiovascular: RRR, Normal S1, Normal S2, without murmur Abdomen: soft, non-tender, non-distended, +GT, positive bowel sound Extremities: excoriation, ecchymosis, contracture, deformity, atrophy Neurological: unable to follow command - Procedures Procedures: Procedures Procedure Code Date INSERT EMERGENCY AIRWAY 73410 05/31/17 INSERTION OF ENDOTRACHEAL AIRWAY INTO [place]HE[place], VIA OPENING [id number] 05/31/17 RESPIRATORY VENTILATION, GREATER THAN 96 CONSECUTIVE HOURS [id number] 05/31/17 VENT MGMT INPAT INIT DAY 61032 05/31/17 Internal Medicine Assmt/Plan - Assessment Assessment: S/p cardiopulmonary arrest s/p extubation Multilobar PNA lactic acidosis Acute Respiratory Failure Sepsis PNA leukocytosis hypokalemia acute renal insufficiency spastic quadriplegia seizures s/p colostomy s/p wound debridement DNR STATUS - Plan Plan: 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 placement suction patient has needed aspiration precautions inhalation treatments empiric ivantibiotics pulmo follow up continue current plan of care overall prognosis is poor Nutritional Asmnt/Malnutr-PDOC - Dietary Evaluation Malnutrition Findings (Please click <Entered> for more info): Nutritional Asmnt/Malnutrition Start: 06/01/17 17: 31 Text: Status: Complete Freq: Document 06/01/17 17:31 [facility] (Rec: 06/01/17 17:45 [facility] [id number]) Nutritional Asmnt/Malnutrition Patient General Information Nutritional Screening High Risk Consult Diagnosis renal failure, prespiratory failure r/o PNA Pertinent Medical Hx/Surgical Hx dementia, MR anemia, spastic quadriplegia, cerebral palsy, seizure, aspiration PNA, s/p respiratory failure, spsis, hyponatremia, gastroenteritis, PEG Subjective Information Consult received for Anibal 13 and pressure ulcer. Pt seen resting in bed at the time of visit, intubated, non-verbal noted. TF not running at this time. Current Diet Order/ Nutrition Support Isosource 1.5 87ml/hr x 17hr Pertinent Medications vitamin C, vitamin D3, D5w, teragran, piperacillin, miralax, cancomycin Pertinent Labs 1/ na 160, Cl 120, K 4.1, BUN 29, Cr 0.3, Glucose 242, A1c 5.1, Ca 8.4, Mg 2.8 Nutritional Hx/Data Height 5 ft 6 in Height (Calculated Centimeters) 167.6 Current Weight (lbs) 105 lb 8 oz Weight (Calculated Kilograms) 47.9 Weight (Calculated Grams) 87707.0 [place] Body Weight 142 % [place] Body Weight 94 Body Mass Index (BMI) 17.0 Weight Status Underweight GI Symptoms GI Symptoms None Last BM none Difficult in: None Usual diet at home Jevity 1.5 87ml/hr x 17hr Skin Integrity/Comment: decubitus ulceration to sacrum Estimated Nutritional Goals Calories/Kcals/Kg 25-30 Kcals Calculated [id number] based on IBW 65kg Protein g/k.2-1.4 Protein Calculated 78-91 consider respiratory failure and skin probelm Nutritional Problem 1. Problem Problem excessive intake from enteral feeding Etiology current TF regimen providing excessive calorie and protein than estimated nutritional needs Signs/Symptoms: current TF providing 114% of calorie needs and 110% of protein needs Malnutrition Alert Protein-Calorie Malnutrition N/A Is there a minimum of two criteria No selected? Query Text:Check all the applicable criteria. A minimum of two criteria are recommended for diagnosis of either severe or non-severe malnutrition. Intervention/Recommendation Comments 1. Recommend modify TF rate to 70ml/hr x 17hr to meet 100% of nutritional needs and avoid overfeeding. 2. Monitor TF rate, tolerance, wt weekly, skin integrity and labs 3. F/U as moderate risk in 3-5 days, 04/25-04/27 Expected Outcomes/Goals Expected Outcomes/Goals 1. Pt to meet 75-100% of nutritional needs via nutrition support with tolerance 2. 2. Wt stability, skin to remain intact, labs to approach WNL.
[2017-06-29 14:26] LABS: INF A SCREEN NEG FOR INF A; INF B SCREEN NEG FOR INF B
--- NOTE | 2017-06-29 14:37 | General Progress Note ---
Subjective - Review of Systems Service Date: 06/29/17 Objective - Results Result Diagrams: 06/29/17 04:50 06/29/17 04:50 Recent Labs: Laboratory Last Values WBC 2.1 Th/cmm (4.8-10.8) L* D 06/29/17 04:50 RBC 2.58 Mil/cmm (4.30-5.70) L 06/29/17 04:50 Hgb 7.8 gm/dL (12-16) L* 06/29/17 04:50 Hct 23.6 % (41.0-60) L 06/29/17 04:50 MCV 91.7 fl (80-99) 06/29/17 04:50 MCH 30.3 pg (26.0-30.0) H 06/29/17 04:50 MCHC Differential 33.0 pg (28.0-36.0) 06/29/17 04:50 RDW 17.6 % (11.5-20.0) 06/29/17 04:50 Plt Count 16 Th/cmm (150-400) L* 06/29/17 04:50 MPV 6.9 fl 06/29/17 04:50 Neutrophils % WARDROBE ASSISTANT 06/25/17 05:20 Band Neutrophils % 14 % (0-10) H 06/29/17 04:50 Lymphocytes % WARDROBE ASSISTANT 06/25/17 05:20 Monocytes % WARDROBE ASSISTANT 06/25/17 05:20 Eosinophils % WARDROBE ASSISTANT 06/25/17 05:20 Basophils % WARDROBE ASSISTANT 06/25/17 05:20 Neutrophils (Manual) 73 % (40-80) 06/29/17 04:50 Lymphocytes 12 % (20-50) L 06/29/17 04:50 Monocytes 1 % (2-10) L 06/29/17 04:50 Eosinophils 1 % (0-5) 06/16/17 04:25 Metamyelocytes 2 % (0-0) H 06/23/17 05:00 Myelocytes 1 % 06/23/17 05:00 Hypochromia 1+ 06/23/17 05:00 Platelet Estimate DECREASED PLATELETS (NORMAL) 06/29/17 04:50 Anisocytosis 1+ 06/23/17 05:00 Plt Count 16 Th/cmm (150-750) L* 06/29/17 04:50 PT 10.8 SECONDS (9.5-11.5) 06/29/17 04:50 INR 1.04 (0.5-1.4) 06/29/17 04:50 PTT (Actin FS) 25.0 SECONDS (26.0-38.0) L 06/29/17 04:50 Fibrinogen 500.0 mg/dL (200.0-400.0) H 06/29/17 04:50 D-Dimer 1140 ng/mL (100-400) H 06/29/17 04:50 Specimen Source Arterial 06/26/17 08:54 Sample Site RB 06/26/17 08:54 pH 7.56 (7.35-7.45) H* 06/26/17 08:54 pCO2 34.0 mmHg (35.0-45.0) L 06/26/17 08:54 pO2 60.0 mmHg (80.0-100.0) L 06/26/17 08:54 HCO3 31.1 mEq/L (20.0-26.0) H 06/26/17 08:54 Base Excess 8.0 mEq/L (-3.0-3.0) H 06/26/17 08:54 O2 Saturation 94.0 % (92.0-100.0) 06/26/17 08:54 Endy Test Positive 06/26/17 08:54 Vent Rate 12 06/26/17 08:54 Inspired O2 60 06/26/17 08:54 Tidal Volume N/A 06/26/17 08:54 PEEP N/A 06/26/17 08:54 Pressure (ins/psv/peep) N/A 06/26/17 08:54 Critical Value DM 06/26/17 08:54 Sodium 160 mEq/L (136-145) H* 06/29/17 04:50 Potassium 3.6 mEq/L (3.5-5.1) 06/29/17 04:50 Chloride 123 mEq/L (98-107) H 06/29/17 04:50 Carbon Dioxide 33.4 mEq/L (21.0-31.0) H 06/29/17 04:50 Anion Gap 7.2 (7.0-16.0) 06/29/17 04:50 BUN 30 mg/dL (7-25) H 06/29/17 04:50 Creatinine 0.6 mg/dL (0.7-1.3) L 06/29/17 04:50 Est GFR ( Amer) > 60.0 ml/min (>90) 06/29/17 04:50 Est GFR (Non-Af Amer) > 60.0 ml/min 06/29/17 04:50 BUN/Creatinine Ratio 50.0 06/29/17 04:50 Glucose 179 mg/dL (70-105) H 06/29/17 04:50 POC Glucose 124 MG/DL (70 - 105) H 06/14/17 05:50 Hemoglobin A1c % 5.1 % (4.0-6.0) 06/01/17 05:30 Whole Bld Lactic Acid 3.45 mmol/L (0.60-1.99) H* 06/03/17 06:45 Calcium 9.1 mg/dL (8.6-10.3) 06/29/17 04:50 Magnesium 2.1 mg/dL (1.9-2.7) 06/26/17 06:05 Total Bilirubin 0.4 mg/dL (0.3-1.0) 06/29/17 04:50 AST 17 U/L (13-39) 06/29/17 04:50 ALT 49 U/L (7-52) 06/29/17 04:50 Alkaline Phosphatase 64 U/L (34-104) 06/29/17 04:50 Ammonia 54 umol/L (16-53) H 06/20/17 18:05 B-Natriuretic Peptide 22.1 pg/mL (5.0-100.0) 06/26/17 06:05 Total Protein 4.4 gm/dL (6.0-8.3) L 06/29/17 04:50 Albumin 2.0 gm/dL (4.2-5.5) L 06/29/17 04:50 Globulin 2.4 gm/dL 06/29/17 04:50 Albumin/Globulin Ratio 0.8 (1.0-1.8) L 06/29/17 04:50 TSH 0.72 uIU/ml (0.34-5.60) 06/01/17 05:30 Urine Source CATH 05/31/17 12:35 Urine Color YELLOW 05/31/17 12:35 Urine Clarity CLOUDY (CLEAR) 05/31/17 12:35 Urine pH 8.5 (4.6 - 8.0) 05/31/17 12:35 Ur Specific [place] 1.010 (1.005-1.030) 05/31/17 12:35 Urine Protein 30 mg/dL (NEGATIVE) H 05/31/17 12:35 Urine Glucose (UA) NEGATIVE mg/dL (NEGATIVE) 05/31/17 12:35 Urine Ketones NEGATIVE mg/dL (NEGATIVE) 05/31/17 12:35 Urine Blood MODERATE (NEGATIVE) H 05/31/17 12:35 Urine Nitrate NEGATIVE (NEGATIVE) 05/31/17 12:35 Urine Bilirubin NEGATIVE (NEGATIVE) 05/31/17 12:35 Urine Urobilinogen 0.2 E.U./dL (0.2 - 1.0) 05/31/17 12:35 Ur Leukocyte Esterase NEGATIVE (NEGATIVE) 05/31/17 12:35 Urine RBC >100 /hpf (0-5) H 05/31/17 12:35 Urine WBC 2-5 /hpf (0-5) H 05/31/17 12:35 Ur Epithelial Cells NONE SEEN /lpf (FEW) 05/31/17 12:35 Urine Bacteria NONE SEEN /hpf (NONE SEEN) 05/31/17 12:35 Stool Occult Blood NEGATIVE (NEGATIVE) 06/05/17 06:00 Gentamicin Peak 13.8 ug/ml (4.0-8.0) H 06/11/17 11:05 Gentamicin Trough 0.8 ug/ml (0.2-2.0) 06/11/17 08:00 Vancomycin Trough 10.7 ug/mL (10-20) 06/04/17 09:00 Hepatitis A IgM Ab Negative (Negative) 06/10/17 06:20 Hep Bs Antigen Negative (Negative) 06/10/17 06:20 Hep B Core IgM Ab Negative (Negative) 06/10/17 06:20 Hepatitis C Antibody 6.9 s/co ratio (0.0-0.9) H 06/10/17 06:20 Influenza A (Rapid) NEG FOR INF A 06/29/17 13:00 Influenza B (Rapid) NEG FOR INF B 06/29/17 13:00 Blood Type O POSITIVE 06/26/17 21:27 Antibody Screen NEGATIVE 06/02/17 11:40 Crossmatch See Detail 06/02/17 11:40 - Physical Exam Vitals and I&O: Vital Signs Temp 98.6 F 06/29/17 11:10 Pulse 126 06/29/17 13:43 Resp 18 06/29/17 11:10 BP 132/64 06/29/17 11:10 Pulse Ox 96 06/29/17 11:10 Intake & Output 06/28/17 06/29/17 06/29/17 18:59 06:59 18:59 Intake Total 950 Output Total 490 Balance 460 Weight (lbs) 56.699 kg 55.883 kg Intake: Intake, IV Amount 200 metroNIDAZOLE 500mg/NS 200 100mL 500 mg In 100 ml @ 100 mls/hr IV Q8HR [facility] Rx #:[id number] Tube Feeding 750 Output: Urine 450 Stool 40 Other: Stool Characteristics Brown Liquid Liquid Brown Brown Active Medications: Current Medications Acetaminophen (Tylenol 650mg Supp) 650 mg RC Q4HR PRN PRN Reason: FEVER >100.1 Stop: 07/30/17 13:39 Last Admin: 06/29/17 10:17 Dose: 650 mg Acetylcysteine (Mucomyst 20%) 3 ml HHN Q4HRT [facility] Stop: 08/22/17 18:59 Last Admin: 06/29/17 11:02 Dose: Not Given Albuterol Sulfate (Albuterol 2.5mg/3ml Neb Ud) 1.25 mg HHN Q4HRT [facility] Stop: 08/06/17 18:59 Last Admin: 06/29/17 11:02 Dose: 1.25 mg Ascorbic Acid (Vitamin C) 500 mg GT DAILY [facility] Stop: 07/31/17 08:59 Last Admin: 06/29/17 09:55 Dose: 500 mg Bisacodyl (Dulcolax 10 Mg Supp) 10 mg RC Q72HR PRN PRN Reason: Constipation Stop: 07/30/17 13:39 [place] Oil/[place] Balsam/Trypsin (Venelex) 1 appl TP DAILY [facility] Stop: 08/15/17 08:59 Last Admin: 06/29/17 10:01 Dose: 1 appl Cholecalciferol (Vitamin D3) 500 iu PO DAILY [facility] Stop: 07/31/17 08:59 Last Admin: 06/29/17 09:55 Dose: 500 iu Diltiazem HCl (Cardizem) 20 mg IVP Q4H PRN PRN Reason: HR Greater than 130 per min Stop: 08/19/17 17:40 Diltiazem HCl (Cardizem) 30 mg PO TID [facility] Stop: 08/28/17 13:59 Last Admin: 06/29/17 13:43 Dose: 30 mg Filgrastim (Neupogen) 480 mcg SUBQ DAILY FERNANDO Stop: 08/28/17 08:59 Last Admin: 06/29/17 12:27 Dose: 480 mcg Guaifenesin (Robitussin) 200 mg PO Q4HR PRN PRN Reason: Cough or Congestion Stop: 07/30/17 13:41 Last Admin: 06/10/17 20:59 Dose: 200 mg Norepinephrine Bitartrate 4 mg (/ Dextrose) 254 mls @ 30.48 mls/hr IV TITR PRN ; Protocol; 8 MCG/MIN PRN Reason: BP MAINTENANCE (PER PROTOCOL) Stop: 07/31/17 16:46 Last Titration: 06/03/17 00:00 Dose: 0 mcg/min, 0 mls/hr Tigecycline 50 mg/ Sodium (Chloride) 100 mls @ 100 mls/hr IV Q12H [facility] Stop: 08/28/17 09:44 Meropenem 1 gm/ Sodium (Chloride) 100 mls @ 100 mls/hr IV Q8H [facility] Stop: 08/28/17 09:59 Last Admin: 06/29/17 13:49 Dose: 100 mls/hr Dextrose (D5w) 1,000 mls @ 50 mls/hr IV .Q20H [facility] Stop: 08/28/17 13:29 Last Admin: 06/29/17 13:44 Dose: 50 mls/hr Ipratropium [place] (Atrovent Neb 0.5mg/2.5ml) 0.5 mg HHN Q4HRT [facility] Stop: 08/06/17 18:59 Last Admin: 06/29/17 11:02 Dose: 0.5 mg Lactulose (Cephulac) 30 gm PO BID [facility] Stop: 08/03/17 16:59 Last Admin: 06/29/17 09:54 Dose: 30 gm Methylprednisolone Sodium Succinate (Solu-Medrol) 60 mg IVP Q8HR [facility] Stop: 08/24/17 12:59 Last Admin: 06/29/17 12:27 Dose: 60 mg Metoclopramide HCl (Reglan) 5 mg PO TID [facility] Stop: 08/16/17 13:59 Last Admin: 06/29/17 09:54 Dose: 5 mg Midodrine (Proamatine) 5 mg PO TID [facility] Stop: 08/10/17 20:59 Last Admin: 06/29/17 09:54 Dose: 5 mg Miscellaneous (Vte Chemical Prophylaxis Screen/ Admission) 1 ea PRN PRN PRN Reason: PROTOCOL Stop: 07/31/17 14:00 Miscellaneous (Probiotic Screen) 1 ea PRN PRN PRN Reason: PROTOCOL Stop: 07/31/17 16:02 Multivitamins/Vitamin C (Theragran) 1 tab GT DAILY [facility] Stop: 07/31/17 08:59 Last Admin: 06/29/17 09:55 Dose: 1 tab Ondansetron HCl (Zofran) 4 mg IV Q8H PRN PRN Reason: Nausea / Vomiting Stop: 07/30/17 13:41 Sodium Phosphate (Fleet Enema) 133 ml RC DAILY PRN PRN Reason: Constipation Stop: 07/30/17 13:39 General: Other (non communicative) Abdomen: Other (gastric tube) Extremities: Other (right arm picc) - Procedures Procedures: Procedures Procedure Code Date INSERT EMERGENCY AIRWAY 60816 05/31/17 INSERTION OF ENDOTRACHEAL AIRWAY INTO TRACHEA, VIA OPENING [id number] 05/31/17 RESPIRATORY VENTILATION, GREATER THAN 96 CONSECUTIVE HOURS [id number] 05/31/17 VENT MGMT INPAT INIT DAY [id number] 05/31/17 Assessment/Plan - Problem List Patient Problems: All Active Problems COUGH AND CONGESTION (Acute) - Assessment Assessment: * pancytopenia secondary to bone marrow suppression by sepsis and meds Now off vancomycin on meropenem and tygecycline continue neupogen daily until neutropenia resolve tx plt today follow cbc, Nutritional Asmnt/Malnutr-PDOC - Dietary Evaluation Malnutrition Findings (Please click <Entered> for more info): Nutritional Asmnt/Malnutrition Start: 06/01/17 17: 31 Text: Status: Complete Freq: Document 06/01/17 17:31 SHELBIE (Rec: 06/01/17 17:45 SHELBIE [id number]) Nutritional Asmnt/Malnutrition Patient General Information Nutritional Screening High Risk Consult Diagnosis renal failure, prespiratory failure r/o PNA Pertinent Medical Hx/Surgical Hx dementia, MR anemia, spastic quadriplegia, cerebral palsy, seizure, aspiration PNA, s/p respiratory failure, spsis, hyponatremia, gastroenteritis, PEG Subjective Information Consult received for Anibal 13 and pressure ulcer. Pt seen resting in bed at the time of visit, intubated, non-verbal noted. TF not running at this time. Current Diet Order/ Nutrition Support Isosource 1.5 87ml/hr x 17hr Pertinent Medications vitamin C, vitamin D3, D5w, teragran, piperacillin, miralax, cancomycin Pertinent Labs 06/01 na 160, Cl 120, K 4.1, BUN 29, Cr 0.3, Glucose 242, A1c 5.1, Ca 8.4, Mg 2.8 Nutritional Hx/Data Height 1.68 m Height (Calculated Centimeters) 167.6 Current Weight (lbs) 47.854 kg Weight (Calculated Kilograms) 47.9 Weight (Calculated Grams) 27831.0 [place] Body Weight 142 % [place] Body Weight 94 Body Mass Index (BMI) 17.0 Weight Status Underweight GI Symptoms GI Symptoms None Last BM none Difficult in: None Usual diet at home Jevity 1.5 87ml/hr x 17hr Skin Integrity/Comment: decubitus ulceration to sacrum Estimated Nutritional Goals Calories/Kcals/Kg 25-30 Kcals Calculated 1209-5822 based on IBW 65kg Protein g/k.2-1.4 Protein Calculated 78-91 consider respiratory failure and skin probelm Nutritional Problem 1. Problem Problem excessive intake from enteral feeding Etiology current TF regimen providing excessive calorie and protein than estimated nutritional needs Signs/Symptoms: current TF providing 114% of calorie needs and 110% of protein needs Malnutrition Alert Protein-Calorie Malnutrition N/A Is there a minimum of two criteria No selected? Query Text:Check all the applicable criteria. A minimum of two criteria are recommended for diagnosis of either severe or non-severe malnutrition. Intervention/Recommendation Comments 1. Recommend modify TF rate to 70ml/hr x 17hr to meet 100% of nutritional needs and avoid overfeeding. 2. Monitor TF rate, tolerance, wt weekly, skin integrity and labs 3. F/U as moderate risk in 3-5 days, 04/25-12/1 Expected Outcomes/Goals Expected Outcomes/Goals 1. Pt to meet 75-100% of nutritional needs via nutrition support with tolerance 2. 2. Wt stability, skin to remain intact, labs to approach WNL.
[2017-06-29] MEDS: methylPREDNISolone SS 40 mg Vial IVP SCH (22:01)
[2017-06-30] MEDS: DEXTROSE 5% IV SCH ×2 (01:56→12:12)
[2017-06-30] MEDS: TIGECYCLINE IV SCH ×2 (01:56→12:12)
[2017-06-30] MEDS ORDERED: Ipratropium Neb 0.5 mg/2.5 mL UD HHN ONE (02:44)
[2017-06-30] MEDS: Meropenem 1 GM in Sodium Chloride 0.9% 100 ML IV SCH ×2 (02:53→09:03)
[2017-06-30] MEDS: Albuterol Nebulizer 2.5mg/3mL HHN SCH ×6 (03:13→23:24)
[2017-06-30] MEDS: Ipratropium Neb 0.5 mg/2.5 mL UD HHN SCH ×6 (03:15→23:24)
[2017-06-30] MEDS: methylPREDNISolone SS 40 mg Vial IVP SCH ×2 (08:16→21:43)
[2017-06-30] MEDS: Lactulose 10 Gm/15 mL 30mL UDC PO SCH ×2 (08:16→16:42)
[2017-06-30] MEDS: Multivitamin Tab GT SCH (08:17)
[2017-06-30] MEDS: Diltiazem 30 mg Tab PO SCH ×3 (08:18→17:02)
[2017-06-30 08:49] LABS: MEAN CELL VOLUME 92.2 fl (80-99); MEAN CORPUSCULAR HEMOGLOBIN 30.4 pg (26.0-30.0); MEAN CORPUSCULAR HGB CONC 32.9 pg (28.0-36.0); MEAN PLATELET VOLUME 7.6 fl; RED CELL DISTRIBUTION WIDTH 17.7 % (11.5-20.0)
[2017-06-30 09:01] LABS: WHITE BLOOD COUNT 2.2 Th/cmm (4.8-10.8)
[2017-06-30 09:02] LABS: HEMATOCRIT 23.9 % (41.0-60); HEMOGLOBIN 7.9 gm/dL (12-16); PLATELET COUNT 22 Th/cmm (150-400)
[2017-06-30 09:04] LABS: ALBUMIN 2.1 gm/dL (4.2-5.5); ALKALINE PHOSPHATASE 85 U/L (34-104); ANION GAP 10.6 (7.0-16.0); BILIRUBIN,TOTAL 0.4 mg/dL (0.3-1.0); BUN - UREA NITROGEN 45 mg/dL (7-25); CALCIUM SERUM 9.4 mg/dL (8.6-10.3); CHLORIDE 126 mEq/L (98-107); CREATININE - SERUM 0.4 mg/dL (0.7-1.3); GFR AFRICAN-AMERICAN > 60.0 ml/min (>90); GFR NON AFRICAN-AMERICAN > 60.0 ml/min; GLUCOSE 201 mg/dL (70-105); POTASSIUM SERUM 3.6 mEq/L (3.5-5.1); SGOT 16 U/L (13-39); SGPT/ALT 40 U/L (7-52); TOTAL PROTEIN,SERUM 4.3 gm/dL (6.0-8.3)
[2017-06-30] MEDS: Venelex 60gm Tube TP SCH (10:06)
[2017-06-30 10:11] LABS: BAND NEUTROPHILE 14 % (0-10); LYMPHOCYTE 10 % (20-50); MONOCYTE 2 % (2-10); NEUTROPHILS 74 % (40-80); PLATELET ESTIMATE DECREASED PLATELETS (NORMAL); TOTAL CELLS COUNTED 100
[2017-06-30 10:40] LABS: SODIUM SERUM 164 mEq/L (136-145)
[2017-06-30] MEDS: Dextrose 5% 1,000 ML IV SCH (13:08)
--- NOTE | 2017-06-30 14:48 | General Progress Note ---
Subjective - Review of Systems Service Date: 06/30/17 Objective - Results Result Diagrams: 06/30/17 08:20 06/30/17 08:20 Recent Labs: Laboratory Last Values WBC 2.2 Th/cmm (4.8-10.8) L* 06/30/17 08:20 RBC 2.60 Mil/cmm (4.30-5.70) L 06/30/17 08:20 Hgb 7.9 gm/dL (12-16) L* 06/30/17 08:20 Hct 23.9 % (41.0-60) L 06/30/17 08:20 MCV 92.2 fl (80-99) 06/30/17 08:20 MCH 30.4 pg (26.0-30.0) H 06/30/17 08:20 MCHC Differential 32.9 pg (28.0-36.0) 06/30/17 08:20 RDW 17.7 % (11.5-20.0) 06/30/17 08:20 Plt Count 22 Th/cmm (150-400) L* 06/30/17 08:20 MPV 7.6 fl 06/30/17 08:20 Neutrophils % [employer] DIRECTOR 06/25/17 05:20 Band Neutrophils % 14 % (0-10) H 06/30/17 08:20 Lymphocytes % [employer]ERIA DIRECTOR 06/25/17 05:20 Monocytes % [employer]FETERIA DIRECTOR 06/25/17 05:20 Eosinophils % CAFETERIA DIRECTOR 06/25/17 05:20 Basophils % CAFETERIA DIRECTOR 06/25/17 05:20 Neutrophils (Manual) 74 % (40-80) 06/30/17 08:20 Lymphocytes 10 % (20-50) L 06/30/17 08:20 Monocytes 2 % (2-10) 06/30/17 08:20 Eosinophils 1 % (0-5) 06/16/17 04:25 Metamyelocytes 2 % (0-0) H 06/23/17 05:00 Myelocytes 1 % 06/23/17 05:00 Hypochromia 1+ 06/23/17 05:00 Platelet Estimate DECREASED PLATELETS (NORMAL) 06/30/17 08:20 Anisocytosis 1+ 06/23/17 05:00 Plt Count 16 Th/cmm (150-750) L* 06/29/17 04:50 PT 10.8 SECONDS (9.5-11.5) 06/29/17 04:50 INR 1.04 (0.5-1.4) 06/29/17 04:50 PTT (Actin FS) 25.0 SECONDS (26.0-38.0) L 06/29/17 04:50 Fibrinogen 500.0 mg/dL (200.0-400.0) H 06/29/17 04:50 D-Dimer 1140 ng/mL (100-400) H 06/29/17 04:50 Specimen Source Arterial 06/26/17 08:54 Sample Site RB 06/26/17 08:54 pH 7.56 (7.35-7.45) H* 06/26/17 08:54 pCO2 34.0 mmHg (35.0-45.0) L 06/26/17 08:54 pO2 60.0 mmHg (80.0-100.0) L 06/26/17 08:54 HCO3 31.1 mEq/L (20.0-26.0) H 06/26/17 08:54 Base Excess 8.0 mEq/L (-3.0-3.0) H 06/26/17 08:54 O2 Saturation 94.0 % (92.0-100.0) 06/26/17 08:54 Endy Test Positive 06/26/17 08:54 Vent Rate 12 06/26/17 08:54 Inspired O2 60 06/26/17 08:54 Tidal Volume N/A 06/26/17 08:54 PEEP N/A 06/26/17 08:54 Pressure (ins/psv/peep) N/A 06/26/17 08:54 Critical Value DM 06/26/17 08:54 Sodium 164 mEq/L (136-145) H* 06/30/17 08:20 Potassium 3.6 mEq/L (3.5-5.1) 06/30/17 08:20 Chloride 126 mEq/L (98-107) H 06/30/17 08:20 Carbon Dioxide 31.0 mEq/L (21.0-31.0) 06/30/17 08:20 Anion Gap 10.6 (7.0-16.0) 06/30/17 08:20 BUN 45 mg/dL (7-25) H 06/30/17 08:20 Creatinine 0.4 mg/dL (0.7-1.3) L 06/30/17 08:20 Est GFR ( Amer) > 60.0 ml/min (>90) 06/30/17 08:20 Est GFR (Non-Af Amer) > 60.0 ml/min 06/30/17 08:20 BUN/Creatinine Ratio 112.5 06/30/17 08:20 Glucose 201 mg/dL (70-105) H 06/30/17 08:20 POC Glucose 124 MG/DL (70 - 105) H 06/14/17 05:50 Hemoglobin A1c % 5.1 % (4.0-6.0) 06/01/17 05:30 Whole Bld Lactic Acid 3.45 mmol/L (0.60-1.99) H* 06/03/17 06:45 Calcium 9.4 mg/dL (8.6-10.3) 06/30/17 08:20 Magnesium 2.1 mg/dL (1.9-2.7) 06/26/17 06:05 Total Bilirubin 0.4 mg/dL (0.3-1.0) 06/30/17 08:20 AST 16 U/L (13-39) 06/30/17 08:20 ALT 40 U/L (7-52) 06/30/17 08:20 Alkaline Phosphatase 85 U/L (34-104) 06/30/17 08:20 Ammonia 54 umol/L (16-53) H 06/20/17 18:05 B-Natriuretic Peptide 22.1 pg/mL (5.0-100.0) 06/26/17 06:05 Total Protein 4.3 gm/dL (6.0-8.3) L 06/30/17 08:20 Albumin 2.1 gm/dL (4.2-5.5) L 06/30/17 08:20 Globulin 2.2 gm/dL 06/30/17 08:20 Albumin/Globulin Ratio 1.0 (1.0-1.8) 06/30/17 08:20 TSH 0.72 uIU/ml (0.34-5.60) 06/01/17 05:30 Urine Source CATH 05/31/17 12:35 Urine Color YELLOW 05/31/17 12:35 Urine Clarity CLOUDY (CLEAR) 05/31/17 12:35 Urine pH 8.5 (4.6 - 8.0) 05/31/17 12:35 Ur Specific [place] 1.010 (1.005-1.030) 05/31/17 12:35 Urine Protein 30 mg/dL (NEGATIVE) H 05/31/17 12:35 Urine Glucose (UA) NEGATIVE mg/dL (NEGATIVE) 05/31/17 12:35 Urine Ketones NEGATIVE mg/dL (NEGATIVE) 05/31/17 12:35 Urine Blood MODERATE (NEGATIVE) H 05/31/17 12:35 Urine Nitrate NEGATIVE (NEGATIVE) 05/31/17 12:35 Urine Bilirubin NEGATIVE (NEGATIVE) 05/31/17 12:35 Urine Urobilinogen 0.2 E.U./dL (0.2 - 1.0) 05/31/17 12:35 Ur Leukocyte Esterase NEGATIVE (NEGATIVE) 05/31/17 12:35 Urine RBC >100 /hpf (0-5) H 05/31/17 12:35 Urine WBC 2-5 /hpf (0-5) H 05/31/17 12:35 Ur Epithelial Cells NONE SEEN /lpf (FEW) 05/31/17 12:35 Urine Bacteria NONE SEEN /hpf (NONE SEEN) 05/31/17 12:35 Stool Occult Blood NEGATIVE (NEGATIVE) 06/05/17 06:00 Gentamicin Peak 13.8 ug/ml (4.0-8.0) H 06/11/17 11:05 Gentamicin Trough 0.8 ug/ml (0.2-2.0) 06/11/17 08:00 Vancomycin Trough < 2.0 ug/mL (10-20) L 06/30/17 08:20 Hepatitis A IgM Ab Negative (Negative) 06/10/17 06:20 Hep Bs Antigen Negative (Negative) 06/10/17 06:20 Hep B Core IgM Ab Negative (Negative) 06/10/17 06:20 Hepatitis C Antibody 6.9 s/co ratio (0.0-0.9) H 06/10/17 06:20 Influenza A (Rapid) NEG FOR INF A 06/29/17 13:00 Influenza B (Rapid) NEG FOR INF B 06/29/17 13:00 Blood Type O POSITIVE 06/26/17 21:27 Antibody Screen NEGATIVE 06/02/17 11:40 Crossmatch See Detail 06/02/17 11:40 - Physical Exam Vitals and I&O: Vital Signs Temp 97.5 F 06/30/17 14:02 Pulse 131 06/30/17 14:02 Resp 22 06/30/17 14:02 BP 123/69 06/30/17 14:02 Pulse Ox 90 06/30/17 14:02 Intake & Output 06/29/17 06/30/17 06/30/17 18:59 06:59 18:59 Intake Total 890 468 9050.000 Output Total 1225 450 Balance -201 885 3259.000 Weight (lbs) 67.676 kg 67.585 kg Intake: Intake, IV Amount 643 207 7091.000 Dextrose 5% 1,000 ml @ 50 1000.000 mls/hr IV .Q20H [facility] Rx#: [id number] Meropenem 1 gm In Sodium 100 100 100 Chloride 0.9% 100 ml @ 100 mls/hr IV Q8H [facility] Rx# :[id number] Tigecycline 50 mg In 100 Dextrose 5% 50 ml @ 100 mls/hr IV Q12H [facility] Rx#: [id number] Tube Feeding 490 500 Other 300 Output: Urine 750 450 Other 475 Other: Stool Characteristics Liquid Brown Active Medications: Current Medications Acetaminophen (Tylenol 650mg Supp) 650 mg RC Q4HR PRN PRN Reason: FEVER >100.1 Stop: 07/30/17 13:39 Last Admin: 06/29/17 10:17 Dose: 650 mg Acetylcysteine (Mucomyst 20%) 3 ml HHN Q4HRT [facility] Stop: 08/22/17 18:59 Last Admin: 06/30/17 11:09 Dose: Not Given Albuterol Sulfate (Albuterol 2.5mg/3ml Neb Ud) 1.25 mg HHN Q4HRT [facility] Stop: 08/06/17 18:59 Last Admin: 06/30/17 11:05 Dose: 1.25 mg Ascorbic Acid (Vitamin C) 500 mg GT DAILY [facility] Stop: 07/31/17 08:59 Last Admin: 06/30/17 08:18 Dose: 500 mg Bisacodyl (Dulcolax 10 Mg Supp) 10 mg RC Q72HR PRN PRN Reason: Constipation Stop: 07/30/17 13:39 [place] Oil/[place] Balsam/Trypsin (Venelex) 1 appl TP DAILY [facility] Stop: 08/15/17 08:59 Last Admin: 06/30/17 10:06 Dose: 1 appl Cholecalciferol (Vitamin D3) 500 iu PO DAILY [facility] Stop: 07/31/17 08:59 Last Admin: 06/30/17 08:17 Dose: 500 iu Diltiazem HCl (Cardizem) 20 mg IVP Q4H PRN PRN Reason: HR Greater than 130 per min Stop: 08/19/17 17:40 Diltiazem HCl (Cardizem) 30 mg PO TID [facility] Stop: 08/28/17 13:59 Last Admin: 06/30/17 13:06 Dose: 30 mg Diltiazem HCl (Cardizem) 60 mg PO Q6HR [facility] Stop: 08/29/17 17:59 Filgrastim (Neupogen) 480 mcg SUBQ DAILY [facility] Stop: 08/28/17 08:59 Last Admin: 06/30/17 10:06 Dose: 480 mcg Guaifenesin (Robitussin) 200 mg PO Q4HR PRN PRN Reason: Cough or Congestion Stop: 07/30/17 13:41 Last Admin: 06/10/17 20:59 Dose: 200 mg Norepinephrine Bitartrate 4 mg (/ Dextrose) 254 mls @ 30.48 mls/hr IV TITR PRN ; Protocol; 8 MCG/MIN PRN Reason: BP MAINTENANCE (PER PROTOCOL) Stop: 07/31/17 16:46 Last Titration: 06/03/17 00:00 Dose: 0 mcg/min, 0 mls/hr Tigecycline 50 mg/ Dextrose 50 mls @ 100 mls/hr IV Q12H [facility] Stop: 08/29/17 00:59 Last Infusion: 06/30/17 12:42 Dose: Infused Dextrose (D5w) 1,000 mls @ 50 mls/hr IV .Q20H [facility] Stop: 08/28/17 13:29 Last Admin: 06/30/17 13:08 Dose: 50 mls/hr Meropenem 1 gm/ Dextrose 100 mls @ 100 mls/hr IV Q8H [facility] Stop: 08/28/17 17:59 Ipratropium [place] (Atrovent Neb 0.5mg/2.5ml) 0.5 mg HHN Q4HRT [facility] Stop: 08/06/17 18:59 Last Admin: 06/30/17 11:05 Dose: 0.5 mg Lactulose (Cephulac) 30 gm PO BID [facility] Stop: 08/03/17 16:59 Last Admin: 06/30/17 08:16 Dose: 30 gm Methylprednisolone Sodium Succinate (Solu-Medrol) 40 mg IVP Q12HR [facility] Stop: 08/28/17 20:59 Last Admin: 06/30/17 08:16 Dose: 40 mg Metoclopramide HCl (Reglan) 5 mg PO TID [facility] Stop: 08/16/17 13:59 Last Admin: 06/30/17 13:06 Dose: 5 mg Midodrine (Proamatine) 5 mg PO TID [facility] Stop: 08/10/17 20:59 Last Admin: 06/30/17 13:07 Dose: 5 mg Miscellaneous (Vte Chemical Prophylaxis Screen/ Admission) 1 [facility] PRN PRN PRN Reason: PROTOCOL Stop: 07/31/17 14:00 Miscellaneous (Probiotic Screen) 1 [facility] PRN PRN PRN Reason: PROTOCOL Stop: 07/31/17 16:02 Multivitamins/Vitamin C (Theragran) 1 tab GT DAILY [facility] Stop: 07/31/17 08:59 Last Admin: 06/30/17 08:17 Dose: 1 tab Ondansetron HCl (Zofran) 4 mg IV Q8H PRN PRN Reason: Nausea / Vomiting Stop: 07/30/17 13:41 Sodium Phosphate (Fleet Enema) 133 ml RC DAILY PRN PRN Reason: Constipation Stop: 07/30/17 13:39 General: Other (non communicative) Abdomen: Other (gastric tube) Extremities: Other (right arm picc) - Procedures Procedures: Procedures Procedure Code Date INSERT EMERGENCY AIRWAY 13734 05/31/17 INSERTION OF ENDOTRACHEAL AIRWAY INTO TRACHEA, VIA OPENING [id number] 05/31/17 RESPIRATORY VENTILATION, GREATER THAN 96 CONSECUTIVE HOURS [id number] 05/31/17 VENT MGMT INPAT INIT DAY 48303 05/31/17 Assessment/Plan - Problem List Patient Problems: All Active Problems COUGH AND CONGESTION (Acute) - Assessment Assessment: * pancytopenia secondary to bone marrow suppression by sepsis and meds Now off vancomycin on meropenem and tygecycline continue neupogen daily until neutropenia resolve S/P PLT transfusion follow cbc, Nutritional Asmnt/Malnutr-PDOC - Dietary Evaluation Malnutrition Findings (Please click <Entered> for more info): Nutritional Asmnt/Malnutrition Start: 06/01/17 17: 31 Text: Status: Complete Freq: Document 06/01/17 17:31 LCJOSELING (Rec: 06/01/17 17:45 LCJOSELING [id number]) Nutritional Asmnt/Malnutrition Patient General Information Nutritional Screening High Risk Consult Diagnosis renal failure, prespiratory failure r/o PNA Pertinent Medical Hx/Surgical Hx dementia, MR anemia, spastic quadriplegia, cerebral palsy, seizure, aspiration PNA, s/p respiratory failure, spsis, hyponatremia, gastroenteritis, PEG Subjective Information Consult received for Anibal 13 and pressure ulcer. Pt seen resting in bed at the time of visit, intubated, non-verbal noted. TF not running at this time. Current Diet Order/ Nutrition Support Isosource 1.5 87ml/hr x 17hr Pertinent Medications vitamin C, vitamin D3, D5w, teragran, piperacillin, miralax, cancomycin Pertinent Labs 06/01 na 160, Cl 120, K 4.1, BUN 29, Cr 0.3, Glucose 242, A1c 5.1, Ca 8.4, Mg 2.8 Nutritional Hx/Data Height 1.68 m Height (Calculated Centimeters) 167.6 Current Weight (lbs) 47.854 kg Weight (Calculated Kilograms) 47.9 Weight (Calculated Grams) 35078.0 [place] Body Weight 142 % [place] Body Weight 94 Body Mass Index (BMI) 17.0 Weight Status Underweight GI Symptoms GI Symptoms None Last BM none Difficult in: None Usual diet at home Jevity 1.5 87ml/hr x 17hr Skin Integrity/Comment: decubitus ulceration to sacrum Estimated Nutritional Goals Calories/Kcals/Kg 25-30 Kcals Calculated [id number] based on IBW 65kg Protein g/k.2-1.4 Protein Calculated 78-91 consider respiratory failure and skin probelm Nutritional Problem 1. Problem Problem excessive intake from enteral feeding Etiology current TF regimen providing excessive calorie and protein than estimated nutritional needs Signs/Symptoms: current TF providing 114% of calorie needs and 110% of protein needs Malnutrition Alert Protein-Calorie Malnutrition N/A Is there a minimum of two criteria No selected? Query Text:Check all the applicable criteria. A minimum of two criteria are recommended for diagnosis of either severe or non-severe malnutrition. Intervention/Recommendation Comments 1. Recommend modify TF rate to 70ml/hr x 17hr to meet 100% of nutritional needs and avoid overfeeding. 2. Monitor TF rate, tolerance, wt weekly, skin integrity and labs 3. F/U as moderate risk in 3-5 days, 04/25-04/27 Expected Outcomes/Goals Expected Outcomes/Goals 1. Pt to meet 75-100% of nutritional needs via nutrition support with tolerance 2. 2. Wt stability, skin to remain intact, labs to approach WNL.
[2017-06-30] MEDS: Diltiazem 5 mg/mL 5mL Vial IVP PRN ×2 (15:38→22:21)
--- NOTE | 2017-06-30 16:42 | Internal Medicine Prog Note ---
Internal Medicine Subjective - Subjective Service Date: 06/30/17 (patient is on bipap fio2 100% low oxygen saturation of 86%) Patient is:: awake, non-verbal, non-interactive, in bed Patient Complaints of:: congestion Per staff patient has:: no adverse event, tolerating meds Internal Medicine Objective - Results Result Diagrams: 06/30/17 08:20 06/30/17 08:20 Recent Labs: Laboratory Last Values WBC 2.2 Th/cmm (4.8-10.8) L* 06/30/17 08:20 RBC 2.60 Mil/cmm (4.30-5.70) L 06/30/17 08:20 Hgb 7.9 gm/dL (12-16) L* 06/30/17 08:20 Hct 23.9 % (41.0-60) L 06/30/17 08:20 MCV 92.2 fl (80-99) 06/30/17 08:20 MCH 30.4 pg (26.0-30.0) H 06/30/17 08:20 MCHC Differential 32.9 pg (28.0-36.0) 06/30/17 08:20 RDW 17.7 % (11.5-20.0) 06/30/17 08:20 Plt Count 22 Th/cmm (150-400) L* 06/30/17 08:20 MPV 7.6 fl 06/30/17 08:20 Neutrophils % PROTECTIVE SIGNAL OPERATOR 06/25/17 05:20 Band Neutrophils % 14 % (0-10) H 06/30/17 08:20 Lymphocytes % PROTECTIVE SIGNAL OPERATOR 06/25/17 05:20 Monocytes % PROTECTIVE SIGNAL OPERATOR 06/25/17 05:20 Eosinophils % PROTECTIVE SIGNAL OPERATOR 06/25/17 05:20 Basophils % PROTECTIVE SIGNAL OPERATOR 06/25/17 05:20 Neutrophils (Manual) 74 % (40-80) 06/30/17 08:20 Lymphocytes 10 % (20-50) L 06/30/17 08:20 Monocytes 2 % (2-10) 06/30/17 08:20 Eosinophils 1 % (0-5) 06/16/17 04:25 Metamyelocytes 2 % (0-0) H 06/23/17 05:00 Myelocytes 1 % 06/23/17 05:00 Hypochromia 1+ 06/23/17 05:00 Platelet Estimate DECREASED PLATELETS (NORMAL) 06/30/17 08:20 Anisocytosis 1+ 06/23/17 05:00 Plt Count 16 Th/cmm (150-750) L* 06/29/17 04:50 PT 10.8 SECONDS (9.5-11.5) 06/29/17 04:50 INR 1.04 (0.5-1.4) 06/29/17 04:50 PTT (Actin FS) 25.0 SECONDS (26.0-38.0) L 06/29/17 04:50 Fibrinogen 500.0 mg/dL (200.0-400.0) H 06/29/17 04:50 D-Dimer 1140 ng/mL (100-400) H 06/29/17 04:50 Specimen Source Arterial 06/26/17 08:54 Sample Site RB 06/26/17 08:54 pH 7.56 (7.35-7.45) H* 06/26/17 08:54 pCO2 34.0 mmHg (35.0-45.0) L 06/26/17 08:54 pO2 60.0 mmHg (80.0-100.0) L 06/26/17 08:54 HCO3 31.1 mEq/L (20.0-26.0) H 06/26/17 08:54 Base Excess 8.0 mEq/L (-3.0-3.0) H 06/26/17 08:54 O2 Saturation 94.0 % (92.0-100.0) 06/26/17 08:54 Endy Test Positive 06/26/17 08:54 Vent Rate 12 06/26/17 08:54 Inspired O2 60 06/26/17 08:54 Tidal Volume N/A 06/26/17 08:54 PEEP N/A 06/26/17 08:54 Pressure (ins/psv/peep) N/A 06/26/17 08:54 Critical Value DM 06/26/17 08:54 Sodium 164 mEq/L (136-145) H* 06/30/17 08:20 Potassium 3.6 mEq/L (3.5-5.1) 06/30/17 08:20 Chloride 126 mEq/L (98-107) H 06/30/17 08:20 Carbon Dioxide 31.0 mEq/L (21.0-31.0) 06/30/17 08:20 Anion Gap 10.6 (7.0-16.0) 06/30/17 08:20 BUN 45 mg/dL (7-25) H 06/30/17 08:20 Creatinine 0.4 mg/dL (0.7-1.3) L 06/30/17 08:20 Est GFR ( Amer) > 60.0 ml/min (>90) 06/30/17 08:20 Est GFR (Non-Af Amer) > 60.0 ml/min 06/30/17 08:20 BUN/Creatinine Ratio 112.5 06/30/17 08:20 Glucose 201 mg/dL (70-105) H 06/30/17 08:20 POC Glucose 124 MG/DL (70 - 105) H 06/14/17 05:50 Hemoglobin A1c % 5.1 % (4.0-6.0) 06/01/17 05:30 Whole Bld Lactic Acid 3.45 mmol/L (0.60-1.99) H* 06/03/17 06:45 Calcium 9.4 mg/dL (8.6-10.3) 06/30/17 08:20 Magnesium 2.1 mg/dL (1.9-2.7) 06/26/17 06:05 Total Bilirubin 0.4 mg/dL (0.3-1.0) 06/30/17 08:20 AST 16 U/L (13-39) 06/30/17 08:20 ALT 40 U/L (7-52) 06/30/17 08:20 Alkaline Phosphatase 85 U/L (34-104) 06/30/17 08:20 Ammonia 54 umol/L (16-53) H 06/20/17 18:05 B-Natriuretic Peptide 22.1 pg/mL (5.0-100.0) 06/26/17 06:05 Total Protein 4.3 gm/dL (6.0-8.3) L 06/30/17 08:20 Albumin 2.1 gm/dL (4.2-5.5) L 06/30/17 08:20 Globulin 2.2 gm/dL 06/30/17 08:20 Albumin/Globulin Ratio 1.0 (1.0-1.8) 06/30/17 08:20 TSH 0.72 uIU/ml (0.34-5.60) 06/01/17 05:30 Urine Source CATH 05/31/17 12:35 Urine Color YELLOW 05/31/17 12:35 Urine Clarity CLOUDY (CLEAR) 05/31/17 12:35 Urine pH 8.5 (4.6 - 8.0) 05/31/17 12:35 Ur Specific [place] 1.010 (1.005-1.030) 05/31/17 12:35 Urine Protein 30 mg/dL (NEGATIVE) H 05/31/17 12:35 Urine Glucose (UA) NEGATIVE mg/dL (NEGATIVE) 05/31/17 12:35 Urine Ketones NEGATIVE mg/dL (NEGATIVE) 05/31/17 12:35 Urine Blood MODERATE (NEGATIVE) H 05/31/17 12:35 Urine Nitrate NEGATIVE (NEGATIVE) 05/31/17 12:35 Urine Bilirubin NEGATIVE (NEGATIVE) 05/31/17 12:35 Urine Urobilinogen 0.2 E.U./dL (0.2 - 1.0) 05/31/17 12:35 Ur Leukocyte Esterase NEGATIVE (NEGATIVE) 05/31/17 12:35 Urine RBC >100 /hpf (0-5) H 05/31/17 12:35 Urine WBC 2-5 /hpf (0-5) H 05/31/17 12:35 Ur Epithelial Cells NONE SEEN /lpf (FEW) 05/31/17 12:35 Urine Bacteria NONE SEEN /hpf (NONE SEEN) 05/31/17 12:35 Stool Occult Blood NEGATIVE (NEGATIVE) 06/05/17 06:00 Gentamicin Peak 13.8 ug/ml (4.0-8.0) H 06/11/17 11:05 Gentamicin Trough 0.8 ug/ml (0.2-2.0) 06/11/17 08:00 Vancomycin Trough < 2.0 ug/mL (10-20) L 06/30/17 08:20 Hepatitis A IgM Ab Negative (Negative) 06/10/17 06:20 Hep Bs Antigen Negative (Negative) 06/10/17 06:20 Hep B Core IgM Ab Negative (Negative) 06/10/17 06:20 Hepatitis C Antibody 6.9 s/co ratio (0.0-0.9) H 06/10/17 06:20 Influenza A (Rapid) NEG FOR INF A 06/29/17 13:00 Influenza B (Rapid) NEG FOR INF B 06/29/17 13:00 Blood Type O POSITIVE 06/26/17 21:27 Antibody Screen NEGATIVE 06/02/17 11:40 Crossmatch See Detail 06/02/17 11:40 - Physical Exam Vitals and I&O: Vital Signs Temp 97.5 F 06/30/17 14:02 Pulse 138 06/30/17 15:38 Resp 42 06/30/17 15:00 BP 123/69 06/30/17 14:02 Pulse Ox 84 06/30/17 15:00 Intake & Output 06/29/17 06/30/17 06/30/17 18:59 06:59 18:59 Intake Total 059 852 6455.000 Output Total 1225 450 Balance -684 833 5807.000 Weight (lbs) 149 lb 3.2 oz 149 lb Intake: Intake, IV Amount 917 998 4699.000 Dextrose 5% 1,000 ml @ 50 1000.000 mls/hr IV .Q20H [facility] Rx#: [id number] Meropenem 1 gm In Sodium 100 100 100 Chloride 0.9% 100 ml @ 100 mls/hr IV Q8H [facility] Rx# :[id number] Tigecycline 50 mg In 100 Dextrose 5% 50 ml @ 100 mls/hr IV Q12H [facility] Rx#: [id number] Tube Feeding 490 500 Other 300 Output: Urine 750 450 Other 475 Other: Stool Characteristics Liquid Brown Active Medications: Current Medications Acetaminophen (Tylenol 650mg Supp) 650 mg RC Q4HR PRN PRN Reason: FEVER >100.1 Stop: 07/30/17 13:39 Last Admin: 06/29/17 10:17 Dose: 650 mg Acetylcysteine (Mucomyst 20%) 3 ml HHN Q4HRT [facility] Stop: 08/22/17 18:59 Last Admin: 06/30/17 15:02 Dose: Not Given Albuterol Sulfate (Albuterol 2.5mg/3ml Neb Ud) 1.25 mg HHN Q4HRT [facility] Stop: 08/06/17 18:59 Last Admin: 06/30/17 14:57 Dose: 1.25 mg Ascorbic Acid (Vitamin C) 500 mg GT DAILY [facility] Stop: 07/31/17 08:59 Last Admin: 06/30/17 08:18 Dose: 500 mg Bisacodyl (Dulcolax 10 Mg Supp) 10 mg RC Q72HR PRN PRN Reason: Constipation Stop: 07/30/17 13:39 [place] Oil/[place] Balsam/Trypsin (Venelex) 1 appl TP DAILY [facility] Stop: 08/15/17 08:59 Last Admin: 06/30/17 10:06 Dose: 1 appl Cholecalciferol (Vitamin D3) 500 iu PO DAILY [facility] Stop: 07/31/17 08:59 Last Admin: 06/30/17 08:17 Dose: 500 iu Diltiazem HCl (Cardizem) 20 mg IVP Q4H PRN PRN Reason: HR Greater than 130 per min Stop: 08/19/17 17:40 Last Admin: 06/30/17 15:38 Dose: 20 mg Diltiazem HCl (Cardizem) 30 mg PO TID [facility] Stop: 08/28/17 13:59 Last Admin: 06/30/17 13:06 Dose: 30 mg Diltiazem HCl (Cardizem) 60 mg PO Q6HR [facility] Stop: 08/29/17 17:59 Filgrastim (Neupogen) 480 mcg SUBQ DAILY [facility] Stop: 08/28/17 08:59 Last Admin: 06/30/17 10:06 Dose: 480 mcg Guaifenesin (Robitussin) 200 mg PO Q4HR PRN PRN Reason: Cough or Congestion Stop: 07/30/17 13:41 Last Admin: 06/10/17 20:59 Dose: 200 mg Norepinephrine Bitartrate 4 mg (/ Dextrose) 254 mls @ 30.48 mls/hr IV TITR PRN ; Protocol; 8 MCG/MIN PRN Reason: BP MAINTENANCE (PER PROTOCOL) Stop: 07/31/17 16:46 Last Titration: 06/03/17 00:00 Dose: 0 mcg/min, 0 mls/hr Tigecycline 50 mg/ Dextrose 50 mls @ 100 mls/hr IV Q12H [facility] Stop: 08/29/17 00:59 Last Infusion: 06/30/17 12:42 Dose: Infused Dextrose (D5w) 1,000 mls @ 50 mls/hr IV .Q20H [facility] Stop: 08/28/17 13:29 Last Admin: 06/30/17 13:08 Dose: 50 mls/hr Meropenem 1 gm/ Dextrose 100 mls @ 100 mls/hr IV Q8H [facility] Stop: 08/28/17 17:59 Ipratropium Raymond (Atrovent Neb 0.5mg/2.5ml) 0.5 mg HHN Q4HRT [facility] Stop: 08/06/17 18:59 Last Admin: 06/30/17 14:57 Dose: 0.5 mg Lactulose (Cephulac) 30 gm PO BID [facility] Stop: 08/03/17 16:59 Last Admin: 06/30/17 08:16 Dose: 30 gm Methylprednisolone Sodium Succinate (Solu-Medrol) 40 mg IVP Q12HR [facility] Stop: 08/28/17 20:59 Last Admin: 06/30/17 08:16 Dose: 40 mg Metoclopramide HCl (Reglan) 5 mg PO TID [facility] Stop: 08/16/17 13:59 Last Admin: 06/30/17 13:06 Dose: 5 mg Midodrine (Proamatine) 5 mg PO TID [facility] Stop: 08/10/17 20:59 Last Admin: 06/30/17 13:07 Dose: 5 mg Miscellaneous (Vte Chemical Prophylaxis Screen/ Admission) 1 ea PRN PRN PRN Reason: PROTOCOL Stop: 07/31/17 14:00 Miscellaneous (Probiotic Screen) 1 [facility] PRN PRN PRN Reason: PROTOCOL Stop: 07/31/17 16:02 Multivitamins/Vitamin C (Theragran) 1 tab GT DAILY [facility] Stop: 07/31/17 08:59 Last Admin: 06/30/17 08:17 Dose: 1 tab Ondansetron HCl (Zofran) 4 mg IV Q8H PRN PRN Reason: Nausea / Vomiting Stop: 07/30/17 13:41 Sodium Phosphate (Fleet Enema) 133 ml RC DAILY PRN PRN Reason: Constipation Stop: 07/30/17 13:39 General: weak, congested HEENT: NC/AT, PERRLA Neck: No LAD, deformity Lungs: congested, rales, ronchi Cardiovascular: RRR, Normal S1, Normal S2, without murmur Abdomen: soft, non-tender, non-distended, +GT, positive bowel sound Extremities: excoriation, ecchymosis, contracture, deformity, atrophy Neurological: unable to follow command - Procedures Procedures: Procedures Procedure Code Date INSERT EMERGENCY AIRWAY 00192 05/31/17 INSERTION OF ENDOTRACHEAL AIRWAY INTO [place]HE[place], VIA OPENING [id number] 05/31/17 RESPIRATORY VENTILATION, GREATER THAN 96 CONSECUTIVE HOURS [id number] 05/31/17 VENT MGMT INPAT INIT DAY 50055 05/31/17 Internal Medicine Assmt/Plan - Assessment Assessment: S/p cardiopulmonary arrest s/p extubation Multilobar PNA lactic acidosis Acute Respiratory Failure Sepsis PNA leukocytosis hypokalemia acute renal insufficiency spastic quadriplegia seizures s/p colostomy s/p wound debridement DNR STATUS - Plan Plan: continue with bipap suction patient has needed aspiration precautions inhalation treatments empiric ivantibiotics pulmo follow up continue current plan of care overall prognosis is poor Nutritional Asmnt/Malnutr-PDOC - Dietary Evaluation Malnutrition Findings (Please click <Entered> for more info): Nutritional Asmnt/Malnutrition Start: 06/01/17 17: 31 Text: Status: Complete Freq: Document 06/01/17 17:31 JOSELIN (Rec: 06/01/17 17:45 [facility] Nutritional Asmnt/Malnutrition Patient General Information Nutritional Screening High Risk Consult Diagnosis renal failure, prespiratory failure r/o PNA Pertinent Medical Hx/Surgical Hx dementia, MR anemia, spastic quadriplegia, cerebral palsy, seizure, aspiration PNA, s/p respiratory failure, spsis, hyponatremia, gastroenteritis, PEG Subjective Information Consult received for Anibal 13 and pressure ulcer. Pt seen resting in bed at the time of visit, intubated, non-verbal noted. TF not running at this time. Current Diet Order/ Nutrition Support Isosource 1.5 87ml/hr x 17hr Pertinent Medications vitamin C, vitamin D3, D5w, teragran, piperacillin, miralax, cancomycin Pertinent Labs 1/ na 160, Cl 120, K 4.1, BUN 29, Cr 0.3, Glucose 242, A1c 5.1, Ca 8.4, Mg 2.8 Nutritional Hx/Data Height 5 ft 6 in Height (Calculated Centimeters) 167.6 Current Weight (lbs) 105 lb 8 oz Weight (Calculated Kilograms) 47.9 Weight (Calculated Grams) 79458.0 [place] Body Weight 142 % [place] Body Weight 94 Body Mass Index (BMI) 17.0 Weight Status Underweight GI Symptoms GI Symptoms None Last BM none Difficult in: None Usual diet at home Jevity 1.5 87ml/hr x 17hr Skin Integrity/Comment: decubitus ulceration to sacrum Estimated Nutritional Goals Calories/Kcals/Kg 25-30 Kcals Calculated [id number] based on IBW 65kg Protein g/k.2-1.4 Protein Calculated 78-91 consider respiratory failure and skin probelm Nutritional Problem 1. Problem Problem excessive intake from enteral feeding Etiology current TF regimen providing excessive calorie and protein than estimated nutritional needs Signs/Symptoms: current TF providing 114% of calorie needs and 110% of protein needs Malnutrition Alert Protein-Calorie Malnutrition N/A Is there a minimum of two criteria No selected? Query Text:Check all the applicable criteria. A minimum of two criteria are recommended for diagnosis of either severe or non-severe malnutrition. Intervention/Recommendation Comments 1. Recommend modify TF rate to 70ml/hr x 17hr to meet 100% of nutritional needs and avoid overfeeding. 2. Monitor TF rate, tolerance, wt weekly, skin integrity and labs 3. F/U as moderate risk in 3-5 days, 04/25-04/27 Expected Outcomes/Goals Expected Outcomes/Goals 1. Pt to meet 75-100% of nutritional needs via nutrition support with tolerance 2. 2. Wt stability, skin to remain intact, labs to approach WNL.
--- NOTE | 2017-06-30 17:08 | Infectious Disease Prog Note ---
Infectious Disease Subjective - Review of Systems Service Date: 06/30/17 Subjective: No fever. Doing better now. pancytopenic. Infectious Disease Objective - Results Result Diagrams: 06/30/17 08:20 06/30/17 08:20 Recent Labs: Laboratory Last Values WBC 2.2 Th/cmm (4.8-10.8) L* 06/30/17 08:20 RBC 2.60 Mil/cmm (4.30-5.70) L 06/30/17 08:20 Hgb 7.9 gm/dL (12-16) L* 06/30/17 08:20 Hct 23.9 % (41.0-60) L 06/30/17 08:20 MCV 92.2 fl (80-99) 06/30/17 08:20 MCH 30.4 pg (26.0-30.0) H 06/30/17 08:20 MCHC Differential 32.9 pg (28.0-36.0) 06/30/17 08:20 RDW 17.7 % (11.5-20.0) 06/30/17 08:20 Plt Count 22 Th/cmm (150-400) L* 06/30/17 08:20 MPV 7.6 fl 06/30/17 08:20 Neutrophils % BACK HOE OPERATOR 06/25/17 05:20 Band Neutrophils % 14 % (0-10) H 06/30/17 08:20 Lymphocytes % BACK HOE OPERATOR 06/25/17 05:20 Monocytes % BACK HOE OPERATOR 06/25/17 05:20 Eosinophils % BACK HOE OPERATOR 06/25/17 05:20 Basophils % BACK HOE OPERATOR 06/25/17 05:20 Neutrophils (Manual) 74 % (40-80) 06/30/17 08:20 Lymphocytes 10 % (20-50) L 06/30/17 08:20 Monocytes 2 % (2-10) 06/30/17 08:20 Eosinophils 1 % (0-5) 06/16/17 04:25 Metamyelocytes 2 % (0-0) H 06/23/17 05:00 Myelocytes 1 % 06/23/17 05:00 Hypochromia 1+ 06/23/17 05:00 Platelet Estimate DECREASED PLATELETS (NORMAL) 06/30/17 08:20 Anisocytosis 1+ 06/23/17 05:00 Plt Count 16 Th/cmm (150-750) L* 06/29/17 04:50 PT 10.8 SECONDS (9.5-11.5) 06/29/17 04:50 INR 1.04 (0.5-1.4) 06/29/17 04:50 PTT (Actin FS) 25.0 SECONDS (26.0-38.0) L 06/29/17 04:50 Fibrinogen 500.0 mg/dL (200.0-400.0) H 06/29/17 04:50 D-Dimer 1140 ng/mL (100-400) H 06/29/17 04:50 Specimen Source Arterial 06/26/17 08:54 Sample Site RB 06/26/17 08:54 pH 7.56 (7.35-7.45) H* 06/26/17 08:54 pCO2 34.0 mmHg (35.0-45.0) L 06/26/17 08:54 pO2 60.0 mmHg (80.0-100.0) L 06/26/17 08:54 HCO3 31.1 mEq/L (20.0-26.0) H 06/26/17 08:54 Base Excess 8.0 mEq/L (-3.0-3.0) H 06/26/17 08:54 O2 Saturation 94.0 % (92.0-100.0) 06/26/17 08:54 Endy Test Positive 06/26/17 08:54 Vent Rate 12 06/26/17 08:54 Inspired O2 60 06/26/17 08:54 Tidal Volume N/A 06/26/17 08:54 PEEP N/A 06/26/17 08:54 Pressure (ins/psv/peep) N/A 06/26/17 08:54 Critical Value DM 06/26/17 08:54 Sodium 164 mEq/L (136-145) H* 06/30/17 08:20 Potassium 3.6 mEq/L (3.5-5.1) 06/30/17 08:20 Chloride 126 mEq/L (98-107) H 06/30/17 08:20 Carbon Dioxide 31.0 mEq/L (21.0-31.0) 06/30/17 08:20 Anion Gap 10.6 (7.0-16.0) 06/30/17 08:20 BUN 45 mg/dL (7-25) H 06/30/17 08:20 Creatinine 0.4 mg/dL (0.7-1.3) L 06/30/17 08:20 Est GFR ( Amer) > 60.0 ml/min (>90) 06/30/17 08:20 Est GFR (Non-Af Amer) > 60.0 ml/min 06/30/17 08:20 BUN/Creatinine Ratio 112.5 06/30/17 08:20 Glucose 201 mg/dL (70-105) H 06/30/17 08:20 POC Glucose 124 MG/DL (70 - 105) H 06/14/17 05:50 Hemoglobin A1c % 5.1 % (4.0-6.0) 06/01/17 05:30 Whole Bld Lactic Acid 3.45 mmol/L (0.60-1.99) H* 06/03/17 06:45 Calcium 9.4 mg/dL (8.6-10.3) 06/30/17 08:20 Magnesium 2.1 mg/dL (1.9-2.7) 06/26/17 06:05 Total Bilirubin 0.4 mg/dL (0.3-1.0) 06/30/17 08:20 AST 16 U/L (13-39) 06/30/17 08:20 ALT 40 U/L (7-52) 06/30/17 08:20 Alkaline Phosphatase 85 U/L (34-104) 06/30/17 08:20 Ammonia 54 umol/L (16-53) H 06/20/17 18:05 B-Natriuretic Peptide 22.1 pg/mL (5.0-100.0) 06/26/17 06:05 Total Protein 4.3 gm/dL (6.0-8.3) L 06/30/17 08:20 Albumin 2.1 gm/dL (4.2-5.5) L 06/30/17 08:20 Globulin 2.2 gm/dL 06/30/17 08:20 Albumin/Globulin Ratio 1.0 (1.0-1.8) 06/30/17 08:20 TSH 0.72 uIU/ml (0.34-5.60) 06/01/17 05:30 Urine Source CATH 05/31/17 12:35 Urine Color YELLOW 05/31/17 12:35 Urine Clarity CLOUDY (CLEAR) 05/31/17 12:35 Urine pH 8.5 (4.6 - 8.0) 05/31/17 12:35 Ur Specific Clarence 1.010 (1.005-1.030) 05/31/17 12:35 Urine Protein 30 mg/dL (NEGATIVE) H 05/31/17 12:35 Urine Glucose (UA) NEGATIVE mg/dL (NEGATIVE) 05/31/17 12:35 Urine Ketones NEGATIVE mg/dL (NEGATIVE) 05/31/17 12:35 Urine Blood MODERATE (NEGATIVE) H 05/31/17 12:35 Urine Nitrate NEGATIVE (NEGATIVE) 05/31/17 12:35 Urine Bilirubin NEGATIVE (NEGATIVE) 05/31/17 12:35 Urine Urobilinogen 0.2 E.U./dL (0.2 - 1.0) 05/31/17 12:35 Ur Leukocyte Esterase NEGATIVE (NEGATIVE) 05/31/17 12:35 Urine RBC >100 /hpf (0-5) H 05/31/17 12:35 Urine WBC 2-5 /hpf (0-5) H 05/31/17 12:35 Ur Epithelial Cells NONE SEEN /lpf (FEW) 05/31/17 12:35 Urine Bacteria NONE SEEN /hpf (NONE SEEN) 05/31/17 12:35 Stool Occult Blood NEGATIVE (NEGATIVE) 06/05/17 06:00 Gentamicin Peak 13.8 ug/ml (4.0-8.0) H 06/11/17 11:05 Gentamicin Trough 0.8 ug/ml (0.2-2.0) 06/11/17 08:00 Vancomycin Trough < 2.0 ug/mL (10-20) L 06/30/17 08:20 Hepatitis A IgM Ab Negative (Negative) 06/10/17 06:20 Hep Bs Antigen Negative (Negative) 06/10/17 06:20 Hep B Core IgM Ab Negative (Negative) 06/10/17 06:20 Hepatitis C Antibody 6.9 s/co ratio (0.0-0.9) H 06/10/17 06:20 Influenza A (Rapid) NEG FOR INF A 06/29/17 13:00 Influenza B (Rapid) NEG FOR INF B 06/29/17 13:00 Blood Type O POSITIVE 06/26/17 21:27 Antibody Screen NEGATIVE 06/02/17 11:40 Crossmatch See Detail 06/02/17 11:40 - Physical Exam Vitals and I&O: Vital Signs Temp 97.5 F 06/30/17 14:02 Pulse 138 06/30/17 17:02 Resp 42 06/30/17 15:00 BP 123/69 06/30/17 14:02 Pulse Ox 84 06/30/17 15:00 Intake & Output 06/29/17 06/30/17 06/30/17 18:59 06:59 18:59 Intake Total 491 702 9829.000 Output Total 1225 450 Balance -526 415 3542.000 Weight (lbs) 67.676 kg 67.585 kg Intake: Intake, IV Amount 079 765 8141.000 Dextrose 5% 1,000 ml @ 50 1000.000 mls/hr IV .Q20H [facility] Rx#: [id number] Meropenem 1 gm In Sodium 100 100 100 Chloride 0.9% 100 ml @ 100 mls/hr IV Q8H [facility] Rx# :[id number] Tigecycline 50 mg In 100 Dextrose 5% 50 ml @ 100 mls/hr IV Q12H [facility] Rx#: [id number] Tube Feeding 490 500 Other 300 Output: Urine 750 450 Other 475 Other: Stool Characteristics Liquid Brown Active Medications: Current Medications Acetaminophen (Tylenol 650mg Supp) 650 mg RC Q4HR PRN PRN Reason: FEVER >100.1 Stop: 07/30/17 13:39 Last Admin: 06/29/17 10:17 Dose: 650 mg Acetylcysteine (Mucomyst 20%) 3 ml HHN Q4HRT [facility] Stop: 08/22/17 18:59 Last Admin: 06/30/17 15:02 Dose: Not Given Albuterol Sulfate (Albuterol 2.5mg/3ml Neb Ud) 1.25 mg HHN Q4HRT [facility] Stop: 08/06/17 18:59 Last Admin: 06/30/17 14:57 Dose: 1.25 mg Ascorbic Acid (Vitamin C) 500 mg GT DAILY [facility] Stop: 07/31/17 08:59 Last Admin: 06/30/17 08:18 Dose: 500 mg Bisacodyl (Dulcolax 10 Mg Supp) 10 mg RC Q72HR PRN PRN Reason: Constipation Stop: 07/30/17 13:39 [place] Oil/Lao Balsam/Trypsin (Venelex) 1 appl TP DAILY [facility] Stop: 08/15/17 08:59 Last Admin: 06/30/17 10:06 Dose: 1 appl Cholecalciferol (Vitamin D3) 500 iu PO DAILY [facility] Stop: 07/31/17 08:59 Last Admin: 06/30/17 08:17 Dose: 500 iu Diltiazem HCl (Cardizem) 20 mg IVP Q4H PRN PRN Reason: HR Greater than 130 per min Stop: 08/19/17 17:40 Last Admin: 06/30/17 15:38 Dose: 20 mg Diltiazem HCl (Cardizem) 60 mg PO Q6HR FERNANDO Stop: 08/29/17 17:59 Last Admin: 06/30/17 17:02 Dose: 60 mg Filgrastim (Neupogen) 480 mcg SUBQ DAILY [facility] Stop: 08/28/17 08:59 Last Admin: 06/30/17 10:06 Dose: 480 mcg Guaifenesin (Robitussin) 200 mg PO Q4HR PRN PRN Reason: Cough or Congestion Stop: 07/30/17 13:41 Last Admin: 06/10/17 20:59 Dose: 200 mg Norepinephrine Bitartrate 4 mg (/ Dextrose) 254 mls @ 30.48 mls/hr IV TITR PRN ; Protocol; 8 MCG/MIN PRN Reason: BP MAINTENANCE (PER PROTOCOL) Stop: 07/31/17 16:46 Last Titration: 06/03/17 00:00 Dose: 0 mcg/min, 0 mls/hr Tigecycline 50 mg/ Dextrose 50 mls @ 100 mls/hr IV Q12H [facility] Stop: 08/29/17 00:59 Last Infusion: 06/30/17 12:42 Dose: Infused Dextrose (D5w) 1,000 mls @ 50 mls/hr IV .Q20H [facility] Stop: 08/28/17 13:29 Last Admin: 06/30/17 13:08 Dose: 50 mls/hr Meropenem 1 gm/ Dextrose 100 mls @ 100 mls/hr IV Q8H [facility] Stop: 08/28/17 17:59 Last Admin: 06/30/17 17:02 Dose: 100 mls/hr Ipratropium [place] (Atrovent Neb 0.5mg/2.5ml) 0.5 mg HHN Q4HRT [facility] Stop: 08/06/17 18:59 Last Admin: 06/30/17 14:57 Dose: 0.5 mg Lactulose (Cephulac) 30 gm PO BID [facility] Stop: 08/03/17 16:59 Last Admin: 06/30/17 16:42 Dose: 30 gm Methylprednisolone Sodium Succinate (Solu-Medrol) 40 mg IVP Q12HR [facility] Stop: 08/28/17 20:59 Last Admin: 06/30/17 08:16 Dose: 40 mg Metoclopramide HCl (Reglan) 5 mg PO TID [facility] Stop: 08/16/17 13:59 Last Admin: 06/30/17 13:06 Dose: 5 mg Midodrine (Proamatine) 5 mg PO TID [facility] Stop: 08/10/17 20:59 Last Admin: 06/30/17 13:07 Dose: 5 mg Miscellaneous (Vte Chemical Prophylaxis Screen/ Admission) 1 ea PRN PRN PRN Reason: PROTOCOL Stop: 07/31/17 14:00 Miscellaneous (Probiotic Screen) 1 ea PRN PRN PRN Reason: PROTOCOL Stop: 07/31/17 16:02 Multivitamins/Vitamin C (Theragran) 1 tab GT DAILY [facility] Stop: 07/31/17 08:59 Last Admin: 06/30/17 08:17 Dose: 1 tab Ondansetron HCl (Zofran) 4 mg IV Q8H PRN PRN Reason: Nausea / Vomiting Stop: 07/30/17 13:41 Sodium Phosphate (Fleet Enema) 133 ml RC DAILY PRN PRN Reason: Constipation Stop: 07/30/17 13:39 General: no acute distress, well developed, well nourished HEENT: atraumatic, normocephalic, PERRLA Neck: supple, no thyromegaly Cardiovascular: S1S2, regular Lungs: clear to percussion, crackles, rhonchi Abdomen: soft, no tender, no distended Extremities: no cyanosis, no clubbing, no edema Neurological: awake, alert Skin: other (sacral wound.) - Procedures Procedures: Procedures Procedure Code Date INSERT EMERGENCY AIRWAY 33149 05/31/17 INSERTION OF ENDOTRACHEAL AIRWAY INTO TRACHEA, VIA OPENING [id number] 05/31/17 RESPIRATORY VENTILATION, GREATER THAN 96 CONSECUTIVE HOURS [id number] 05/31/17 VENT MGMT INPAT INIT [id number] 05/31/17 Infectious Disease Assmt/Plan - Problem List Patient Problems: All Active Problems COUGH AND CONGESTION (Acute) - Assessment Assessment: 1. Sepsis. treated. 2. G Tube site ESBL + E coli. Colonizer. 3. Pneumonia. Aspiration, HAP vs Atypical. 4. Acute respiratory failure, improved.. 5. pancytopenia. 6. Cerebral palsy. 7. Aspiration again. 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 Antibiotics were started recently with cefepime, on 06/25/2017 for ? pancytopenia ( started prior to 06/23/2017), It was changed to vanco IV, on meropenem on 06/28/2017. So, Pancytopenia must be due to some other cause besides antibiotics. Antibiotic ch, continue tygacil and continue meropenem. legionella and mycoplasma serologies. Neutropenic precautions. Nutritional Asmnt/Malnutr-PDOC - Dietary Evaluation Malnutrition Findings (Please click <Entered> for more info): Nutritional Asmnt/Malnutrition Start: 06/01/17 17: 31 Text: Status: Complete Freq: Document 06/01/17 17:31 LCHENG (Rec: 06/01/17 17:45 LCHENG [id number]) Nutritional Asmnt/Malnutrition Patient General Information Nutritional Screening High Risk Consult Diagnosis renal failure, prespiratory failure r/o PNA Pertinent Medical Hx/Surgical Hx dementia, MR anemia, spastic quadriplegia, cerebral palsy, seizure, aspiration PNA, s/p respiratory failure, spsis, hyponatremia, gastroenteritis, PEG Subjective Information Consult received for Anibal 13 and pressure ulcer. Pt seen resting in bed at the time of visit, intubated, non-verbal noted. TF not running at this time. Current Diet Order/ Nutrition Support Isosource 1.5 87ml/hr x 17hr Pertinent Medications vitamin C, vitamin D3, D5w, teragran, piperacillin, miralax, cancomycin Pertinent Labs 06/01 na 160, Cl 120, K 4.1, BUN 29, Cr 0.3, Glucose 242, A1c 5.1, Ca 8.4, Mg 2.8 Nutritional Hx/Data Height 1.68 m Height (Calculated Centimeters) 167.6 Current Weight (lbs) 47.854 kg Weight (Calculated Kilograms) 47.9 Weight (Calculated Grams) 08952.0 [place] Body Weight 142 % [place] Body Weight 94 Body Mass Index (BMI) 17.0 Weight Status Underweight GI Symptoms GI Symptoms None Last BM none Difficult in: None Usual diet at home Jevity 1.5 87ml/hr x 17hr Skin Integrity/Comment: decubitus ulceration to sacrum Estimated Nutritional Goals Calories/Kcals/Kg 25-30 Kcals Calculated 1503-0042 based on IBW 65kg Protein g/k.2-1.4 Protein Calculated 78-91 consider respiratory failure and skin probelm Nutritional Problem 1. Problem Problem excessive intake from enteral feeding Etiology current TF regimen providing excessive calorie and protein than estimated nutritional needs Signs/Symptoms: current TF providing 114% of calorie needs and 110% of protein needs Malnutrition Alert Protein-Calorie Malnutrition N/A Is there a minimum of two criteria No selected? Query Text:Check all the applicable criteria. A minimum of two criteria are recommended for diagnosis of either severe or non-severe malnutrition. Intervention/Recommendation Comments 1. Recommend modify TF rate to 70ml/hr x 17hr to meet 100% of nutritional needs and avoid overfeeding. 2. Monitor TF rate, tolerance, wt weekly, skin integrity and labs 3. F/U as moderate risk in 3-5 days, 04/25-04/27 Expected Outcomes/Goals Expected Outcomes/Goals 1. Pt to meet 75-100% of nutritional needs via nutrition support with tolerance 2. 2. Wt stability, skin to remain intact, labs to approach WNL.
[2017-07-01] MEDS: DEXTROSE 5% IV SCH ×2 (00:48→12:49)
[2017-07-01] MEDS: TIGECYCLINE IV SCH ×2 (00:48→12:49)
[2017-07-01] MEDS: Diltiazem 30 mg Tab PO SCH ×4 (00:49→17:01)
[2017-07-01] MEDS: Ipratropium Neb 0.5 mg/2.5 mL UD HHN SCH ×6 (03:28→22:15)
[2017-07-01] MEDS: Albuterol Nebulizer 2.5mg/3mL HHN SCH ×6 (03:28→22:13)
[2017-07-01] MEDS: Diltiazem 5 mg/mL 5mL Vial IVP PRN ×2 (03:40→09:06)
[2017-07-01 06:36] LABS: HEMOGLOBIN 9.8 gm/dL (12-16); LYMPHOCYTE ABSOLUTE 0.3 Th/cmm (1.5-3.0); MEAN CELL VOLUME 92.6 fl (80-99); MEAN CORPUSCULAR HEMOGLOBIN 30.2 pg (26.0-30.0); MEAN CORPUSCULAR HGB CONC 32.6 pg (28.0-36.0); MEAN PLATELET VOLUME 10.6 fl; MONOCYTE ABSOLUTE 0.1 Th/cmm (0.3-1.0); NEUTROPHILE ABSOLUTE 9.1 Th/cmm (1.8-8.0); RED BLOOD COUNT 3.25 Mil/cmm (4.30-5.70); RED CELL DISTRIBUTION WIDTH 18.2 % (11.5-20.0)
[2017-07-01 06:58] LABS: HEMATOCRIT 30.1 % (41.0-60); PLATELET COUNT 43 Th/cmm (150-400); WHITE BLOOD COUNT 9.5 Th/cmm (4.8-10.8)
[2017-07-01 08:03] LABS: ANION GAP 13.6 (7.0-16.0); BUN - UREA NITROGEN 71 mg/dL (7-25); CALCIUM SERUM 9.2 mg/dL (8.6-10.3); CARBON DIOXIDE 29.6 mEq/L (21.0-31.0); CHLORIDE 125 mEq/L (98-107); CREATININE - SERUM 0.7 mg/dL (0.7-1.3); GFR AFRICAN-AMERICAN > 60.0 ml/min (>90); GFR NON AFRICAN-AMERICAN > 60.0 ml/min; GLUCOSE 272 mg/dL (70-105); POTASSIUM SERUM 4.2 mEq/L (3.5-5.1)
[2017-07-01 08:27] LABS: SODIUM SERUM 164 mEq/L (136-145)
[2017-07-01 08:31] LABS: BAND NEUTROPHILE 22 % (0-10); LYMPHOCYTE 3 % (20-50); MONOCYTE 7 % (2-10); NEUTROPHILS 68 % (40-80); PLATELET ESTIMATE DECREASED PLATELETS (NORMAL); TOTAL CELLS COUNTED 100
[2017-07-01] MEDS: methylPREDNISolone SS 40 mg Vial IVP SCH ×2 (08:38→20:59)
[2017-07-01] MEDS: Lactulose 10 Gm/15 mL 30mL UDC PO SCH ×2 (08:40→17:01)
[2017-07-01] MEDS: Multivitamin Tab GT SCH (08:41)
[2017-07-01] MEDS: Venelex 60gm Tube TP SCH (08:42)
--- NOTE | 2017-07-01 10:13 | Diagnostic Imaging Report ---
Exam: Chest x-ray HISTORY: Shortness of breath. Findings: Frontal examination of chest reviewed compatible prior study of 06/28/2017 demonstrates significant increase of bilateral interstitial infiltrates with air bronchograms. Superimposed right pleural effusion is noted. There is a cyst COPD changes. Bony thorax intact. Mediastinal structures midline. IMPRESSION: Significant consolidation pneumonia bilaterally with superimposed small right pleural effusion. Clinical correlation follow-up examination recommended. Infiltrates increased when compared to prior study of 06/28/2017
[2017-07-01] MEDS: Dextrose 5% 1,000 ML IV SCH (11:33)
--- NOTE | 2017-07-01 15:37 | Infectious Disease Prog Note ---
Infectious Disease Subjective - Review of Systems Service Date: 07/01/17 Subjective: No fever. Doing better now. pancytopenic. Infectious Disease Objective - Results Result Diagrams: 07/01/17 05:50 07/01/17 05:50 Recent Labs: Laboratory Last Values WBC 9.5 Th/cmm (4.8-10.8) D 07/01/17 05:50 RBC 3.25 Mil/cmm (4.30-5.70) L 07/01/17 05:50 Hgb 9.8 gm/dL (12-16) L 07/01/17 05:50 Hct 30.1 % (41.0-60) L D 07/01/17 05:50 MCV 92.6 fl (80-99) 07/01/17 05:50 MCH 30.2 pg (26.0-30.0) H 07/01/17 05:50 MCHC Differential 32.6 pg (28.0-36.0) 07/01/17 05:50 RDW 18.2 % (11.5-20.0) 07/01/17 05:50 Plt Count 43 Th/cmm (150-400) L D 07/01/17 05:50 MPV 10.6 fl 07/01/17 05:50 Neutrophils % SAP ABAP DEVELOPER 06/25/17 05:20 Band Neutrophils % 22 % (0-10) H 07/01/17 05:50 Lymphocytes % SAP ABAP DEVELOPER 06/25/17 05:20 Monocytes % SAP ABAP DEVELOPER 06/25/17 05:20 Eosinophils % SAP ABAP DEVELOPER 06/25/17 05:20 Basophils % SAP ABAP DEVELOPER 06/25/17 05:20 Neutrophils (Manual) 68 % (40-80) 07/01/17 05:50 Lymphocytes 3 % (20-50) L 07/01/17 05:50 Monocytes 7 % (2-10) 07/01/17 05:50 Eosinophils 1 % (0-5) 06/16/17 04:25 Metamyelocytes 2 % (0-0) H 06/23/17 05:00 Myelocytes 1 % 06/23/17 05:00 Hypochromia 1+ 06/23/17 05:00 Platelet Estimate DECREASED PLATELETS (NORMAL) 07/01/17 05:50 Anisocytosis 1+ 06/23/17 05:00 Plt Count 16 Th/cmm (150-750) L* 06/29/17 04:50 PT 10.8 SECONDS (9.5-11.5) 06/29/17 04:50 INR 1.04 (0.5-1.4) 06/29/17 04:50 PTT (Actin FS) 25.0 SECONDS (26.0-38.0) L 06/29/17 04:50 Fibrinogen 500.0 mg/dL (200.0-400.0) H 06/29/17 04:50 D-Dimer 1140 ng/mL (100-400) H 06/29/17 04:50 Specimen Source Arterial 06/26/17 08:54 Sample Site RB 06/26/17 08:54 pH 7.56 (7.35-7.45) H* 06/26/17 08:54 pCO2 34.0 mmHg (35.0-45.0) L 06/26/17 08:54 pO2 60.0 mmHg (80.0-100.0) L 06/26/17 08:54 HCO3 31.1 mEq/L (20.0-26.0) H 06/26/17 08:54 Base Excess 8.0 mEq/L (-3.0-3.0) H 06/26/17 08:54 O2 Saturation 94.0 % (92.0-100.0) 06/26/17 08:54 Endy Test Positive 06/26/17 08:54 Vent Rate 12 06/26/17 08:54 Inspired O2 60 06/26/17 08:54 Tidal Volume N/A 06/26/17 08:54 PEEP N/A 06/26/17 08:54 Pressure (ins/psv/peep) N/A 06/26/17 08:54 Critical Value DM 06/26/17 08:54 Sodium 164 mEq/L (136-145) H* 07/01/17 05:50 Potassium 4.2 mEq/L (3.5-5.1) 07/01/17 05:50 Chloride 125 mEq/L (98-107) H 07/01/17 05:50 Carbon Dioxide 29.6 mEq/L (21.0-31.0) 07/01/17 05:50 Anion Gap 13.6 (7.0-16.0) 07/01/17 05:50 BUN 71 mg/dL (7-25) H 07/01/17 05:50 Creatinine 0.7 mg/dL (0.7-1.3) 07/01/17 05:50 Est GFR ( Amer) > 60.0 ml/min (>90) 07/01/17 05:50 Est GFR (Non-Af Amer) > 60.0 ml/min 07/01/17 05:50 BUN/Creatinine Ratio 101.4 07/01/17 05:50 Glucose 272 mg/dL (70-105) H 07/01/17 05:50 POC Glucose 124 MG/DL (70 - 105) H 06/14/17 05:50 Hemoglobin A1c % 5.1 % (4.0-6.0) 06/01/17 05:30 Whole Bld Lactic Acid 3.45 mmol/L (0.60-1.99) H* 06/03/17 06:45 Calcium 9.2 mg/dL (8.6-10.3) 07/01/17 05:50 Magnesium 2.1 mg/dL (1.9-2.7) 06/26/17 06:05 Total Bilirubin 0.4 mg/dL (0.3-1.0) 06/30/17 08:20 AST 16 U/L (13-39) 06/30/17 08:20 ALT 40 U/L (7-52) 06/30/17 08:20 Alkaline Phosphatase 85 U/L (34-104) 06/30/17 08:20 Ammonia 54 umol/L (16-53) H 06/20/17 18:05 B-Natriuretic Peptide 22.1 pg/mL (5.0-100.0) 06/26/17 06:05 Total Protein 4.3 gm/dL (6.0-8.3) L 06/30/17 08:20 Albumin 2.1 gm/dL (4.2-5.5) L 06/30/17 08:20 Globulin 2.2 gm/dL 06/30/17 08:20 Albumin/Globulin Ratio 1.0 (1.0-1.8) 06/30/17 08:20 TSH 0.72 uIU/ml (0.34-5.60) 06/01/17 05:30 Urine Source CATH 05/31/17 12:35 Urine Color YELLOW 05/31/17 12:35 Urine Clarity CLOUDY (CLEAR) 05/31/17 12:35 Urine pH 8.5 (4.6 - 8.0) 05/31/17 12:35 Ur Specific [place] 1.010 (1.005-1.030) 05/31/17 12:35 Urine Protein 30 mg/dL (NEGATIVE) H 05/31/17 12:35 Urine Glucose (UA) NEGATIVE mg/dL (NEGATIVE) 05/31/17 12:35 Urine Ketones NEGATIVE mg/dL (NEGATIVE) 05/31/17 12:35 Urine Blood MODERATE (NEGATIVE) H 05/31/17 12:35 Urine Nitrate NEGATIVE (NEGATIVE) 05/31/17 12:35 Urine Bilirubin NEGATIVE (NEGATIVE) 05/31/17 12:35 Urine Urobilinogen 0.2 E.U./dL (0.2 - 1.0) 05/31/17 12:35 Ur Leukocyte Esterase NEGATIVE (NEGATIVE) 05/31/17 12:35 Urine RBC >100 /hpf (0-5) H 05/31/17 12:35 Urine WBC 2-5 /hpf (0-5) H 05/31/17 12:35 Ur Epithelial Cells NONE SEEN /lpf (FEW) 05/31/17 12:35 Urine Bacteria NONE SEEN /hpf (NONE SEEN) 05/31/17 12:35 Stool Occult Blood NEGATIVE (NEGATIVE) 06/05/17 06:00 Gentamicin Peak 13.8 ug/ml (4.0-8.0) H 06/11/17 11:05 Gentamicin Trough 0.8 ug/ml (0.2-2.0) 06/11/17 08:00 Vancomycin Trough < 2.0 ug/mL (10-20) L 06/30/17 08:20 Hepatitis A IgM Ab Negative (Negative) 06/10/17 06:20 Hep Bs Antigen Negative (Negative) 06/10/17 06:20 Hep B Core IgM Ab Negative (Negative) 06/10/17 06:20 Hepatitis C Antibody 6.9 s/co ratio (0.0-0.9) H 06/10/17 06:20 Influenza A (Rapid) NEG FOR INF A 06/29/17 13:00 Influenza B (Rapid) NEG FOR INF B 06/29/17 13:00 Blood Type O POSITIVE 01/30/18 21:27 Antibody Screen NEGATIVE 06/02/17 11:40 Crossmatch See Detail 06/02/17 11:40 - Physical Exam Vitals and I&O: Vital Signs Temp 98.8 F 07/01/17 12:00 Pulse 142 07/01/17 12:00 Resp 42 07/01/17 14:22 BP 89/40 07/01/17 12:00 Pulse Ox 51 07/01/17 14:22 Intake & Output 06/30/17 07/01/17 07/01/17 18:59 06:59 18:59 Intake Total 1800.943 514 0138 Output Total 450 750 Balance 1350.704 693 4274 Weight (lbs) 67.585 kg 55.338 kg Intake: Intake, IV Amount 1300.732 014 7331 Dextrose 5% 1,000 ml @ 50 2727.795 3417 mls/hr IV .Q20H [facility] Rx#: [id number] Meropenem 1 gm In 100 100 100 Dextrose 5% 100 ml @ 100 mls/hr IV Q8H [facility] Rx#: [id number] Meropenem 1 gm In Sodium 100 Chloride 0.9% 100 ml @ 100 mls/hr IV Q8H [facility] Rx# :[id number] Tigecycline 50 mg In 100 50 50 Dextrose 5% 50 ml @ 100 mls/hr IV Q12H [facility] Rx#: [id number] Oral 0 Tube Feeding 500 700 Output: Urine 450 350 Stool 400 Other: Stool Characteristics Liquid Liquid Brown Brown Active Medications: Current Medications Acetaminophen (Tylenol 650mg Supp) 650 mg RC Q4HR PRN PRN Reason: FEVER >100.1 Stop: 07/30/17 13:39 Last Admin: 06/29/17 10:17 Dose: 650 mg Acetylcysteine (Mucomyst 20%) 3 ml HHN Q4HRT [facility] Stop: 08/22/17 18:59 Last Admin: 07/01/17 14:21 Dose: Not Given Albuterol Sulfate (Albuterol 2.5mg/3ml Neb Ud) 1.25 mg HHN Q4HRT [facility] Stop: 08/06/17 18:59 Last Admin: 07/01/17 14:21 Dose: Not Given Ascorbic Acid (Vitamin C) 500 mg GT DAILY [facility] Stop: 07/31/17 08:59 Last Admin: 07/01/17 08:41 Dose: 500 mg Bisacodyl (Dulcolax 10 Mg Supp) 10 mg RC Q72HR PRN PRN Reason: Constipation Stop: 07/30/17 13:39 [place] Oil/[place] Balsam/Trypsin (Venelex) 1 appl TP DAILY [facility] Stop: 08/15/17 08:59 Last Admin: 07/01/17 08:42 Dose: 1 appl Cholecalciferol (Vitamin D3) 500 iu PO DAILY [facility] Stop: 07/31/17 08:59 Last Admin: 07/01/17 08:40 Dose: 500 iu Diltiazem HCl (Cardizem) 20 mg IVP Q4H PRN PRN Reason: HR Greater than 130 per min Stop: 08/19/17 17:40 Last Admin: 07/01/17 09:06 Dose: 20 mg Diltiazem HCl (Cardizem) 60 mg PO Q6HR [facility] Stop: 08/29/17 17:59 Last Admin: 07/01/17 11:33 Dose: 60 mg Filgrastim (Neupogen) 480 mcg SUBQ DAILY [facility] Stop: 08/28/17 08:59 Last Admin: 07/01/17 09:55 Dose: Not Given Guaifenesin (Robitussin) 200 mg PO Q4HR PRN PRN Reason: Cough or Congestion Stop: 07/30/17 13:41 Last Admin: 06/10/17 20:59 Dose: 200 mg Norepinephrine Bitartrate 4 mg (/ Dextrose) 254 mls @ 30.48 mls/hr IV TITR PRN ; Protocol; 8 MCG/MIN PRN Reason: BP MAINTENANCE (PER PROTOCOL) Stop: 07/31/17 16:46 Last Titration: 06/03/17 00:00 Dose: 0 mcg/min, 0 mls/hr Tigecycline 50 mg/ Dextrose 50 mls @ 100 mls/hr IV Q12H [facility] Stop: 08/29/17 00:59 Last Infusion: 07/01/17 13:19 Dose: Infused Dextrose (D5w) 1,000 mls @ 50 mls/hr IV .Q20H [facility] Stop: 08/28/17 13:29 Last Admin: 07/01/17 11:33 Dose: 50 mls/hr Meropenem 1 gm/ Dextrose 100 mls @ 100 mls/hr IV Q8H [facility] Stop: 08/28/17 17:59 Last Infusion: 07/01/17 10:01 Dose: Infused Ipratropium [place] (Atrovent Neb 0.5mg/2.5ml) 0.5 mg HHN Q4HRT [facility] Stop: 08/06/17 18:59 Last Admin: 07/01/17 14:21 Dose: 0.5 mg Lactulose (Cephulac) 30 gm PO BID [facility]ERNA[facility] Stop: 08/03/17 16:59 Last Admin: 07/01/17 08:40 Dose: 30 gm Methylprednisolone Sodium Succinate (Solu-Medrol) 40 mg IVP Q12HR [facility] Stop: 08/28/17 20:59 Last Admin: 07/01/17 08:38 Dose: 40 mg Metoclopramide HCl (Reglan) 5 mg PO TID [facility] Stop: 08/16/17 13:59 Last Admin: 07/01/17 13:00 Dose: 5 mg Midodrine (Proamatine) 5 mg PO TID [facility] Stop: 08/10/17 20:59 Last Admin: 07/01/17 13:00 Dose: 5 mg Miscellaneous (Vte Chemical Prophylaxis Screen/ Admission) 1 ea PRN PRN PRN Reason: PROTOCOL Stop: 07/31/17 14:00 Miscellaneous (Probiotic Screen) 1 [facility] PRN PRN PRN Reason: PROTOCOL Stop: 07/31/17 16:02 Multivitamins/Vitamin C (Theragran) 1 tab GT DAILY [facility] Stop: 07/31/17 08:59 Last Admin: 07/01/17 08:41 Dose: 1 tab Ondansetron HCl (Zofran) 4 mg IV Q8H PRN PRN Reason: Nausea / Vomiting Stop: 07/30/17 13:41 Sodium Phosphate (Fleet Enema) 133 ml RC DAILY PRN PRN Reason: Constipation Stop: 07/30/17 13:39 General: no acute distress, well developed, well nourished HEENT: atraumatic, normocephalic, PERRLA, EOMI Neck: supple, no thyromegaly Cardiovascular: S1S2, regular Lungs: clear to auscultation bilaterally, clear to percussion Abdomen: soft, no tender, no distended Extremities: no cyanosis, no clubbing, no edema Neurological: awake, alert, oriented Skin: intact - Procedures Procedures: Procedures Procedure Code Date INSERT EMERGENCY AIRWAY 85316 05/31/17 INSERTION OF ENDOTRACHEAL AIRWAY INTO [place], VIA OPENING [id number] 05/31/17 RESPIRATORY VENTILATION, GREATER THAN 96 CONSECUTIVE HOURS [id number] 05/31/17 VENT MGMT INPAT INIT DAY [id number] 05/31/17 Infectious Disease Assmt/Plan - Problem List Patient Problems: All Active Problems COUGH AND CONGESTION (Acute) - Assessment Assessment: 1. Sepsis. treated. 2. G Tube site ESBL + E coli. Colonizer. 3. Pneumonia. Aspiration, HAP vs Atypical. 4. Acute respiratory failure, improved.. 5. pancytopenia. 6. Cerebral palsy. 7. Aspiration again. - Plan Plan: Antibiotic ch, continue tygacil and doscontinue meropenem. DC precautions. Nutritional Asmnt/Malnutr-PDOC - Dietary Evaluation Malnutrition Findings (Please click <Entered> for more info): Nutritional Asmnt/Malnutrition Start: 06/01/17 17: 31 Text: Status: Complete Freq: Document 06/01/17 17:31 JOSELIN (Rec: 06/01/17 17:45 [email or web address] Nutritional Asmnt/Malnutrition Patient General Information Nutritional Screening High Risk Consult Diagnosis renal failure, prespiratory failure r/o PNA Pertinent Medical Hx/Surgical Hx dementia, MR anemia, spastic quadriplegia, cerebral palsy, seizure, aspiration PNA, s/p respiratory failure, spsis, hyponatremia, gastroenteritis, PEG Subjective Information Consult received for Anibal 13 and pressure ulcer. Pt seen resting in bed at the time of visit, intubated, non-verbal noted. TF not running at this time. Current Diet Order/ Nutrition Support Isosource 1.5 87ml/hr x 17hr Pertinent Medications vitamin C, vitamin D3, D5w, teragran, piperacillin, miralax, cancomycin Pertinent Labs 1/ na 160, Cl 120, K 4.1, BUN 29, Cr 0.3, Glucose 242, A1c 5.1, Ca 8.4, Mg 2.8 Nutritional Hx/Data Height 1.68 m Height (Calculated Centimeters) 167.6 Current Weight (lbs) 47.854 kg Weight (Calculated Kilograms) 47.9 Weight (Calculated Grams) 45519.0 [place] Body Weight 142 % [place] Body Weight 94 Body Mass Index (BMI) 17.0 Weight Status Underweight GI Symptoms GI Symptoms None Last BM none Difficult in: None Usual diet at home Jevity 1.5 87ml/hr x 17hr Skin Integrity/Comment: decubitus ulceration to sacrum Estimated Nutritional Goals Calories/Kcals/Kg 25-30 Kcals Calculated [id number] based on IBW 65kg Protein g/k.2-1.4 Protein Calculated 78-91 consider respiratory failure and skin probelm Nutritional Problem 1. Problem Problem excessive intake from enteral feeding Etiology current TF regimen providing excessive calorie and protein than estimated nutritional needs Signs/Symptoms: current TF providing 114% of calorie needs and 110% of protein needs Malnutrition Alert Protein-Calorie Malnutrition N/A Is there a minimum of two criteria No selected? Query Text:Check all the applicable criteria. A minimum of two criteria are recommended for diagnosis of either severe or non-severe malnutrition. Intervention/Recommendation Comments 1. Recommend modify TF rate to 70ml/hr x 17hr to meet 100% of nutritional needs and avoid overfeeding. 2. Monitor TF rate, tolerance, wt weekly, skin integrity and labs 3. F/U as moderate risk in 3-5 days, 04/25-04/27 Expected Outcomes/Goals Expected Outcomes/Goals 1. Pt to meet 75-100% of nutritional needs via nutrition support with tolerance 2. 2. Wt stability, skin to remain intact, labs to approach WNL.
[2017-07-01 18:16] LABS: A1C % 5.8 % (4.0-6.0)
[2017-07-02] MEDS: TIGECYCLINE IV SCH ×2 (00:29→12:41)
[2017-07-02] MEDS: DEXTROSE 5% IV SCH ×2 (00:29→12:41)
[2017-07-02] MEDS: Ipratropium Neb 0.5 mg/2.5 mL UD HHN SCH ×4 (02:08→15:49)
[2017-07-02] MEDS: Albuterol Nebulizer 2.5mg/3mL HHN SCH ×4 (02:08→15:49)
[2017-07-02] MEDS: methylPREDNISolone SS 40 mg Vial IVP SCH ×2 (05:30→12:40)
[2017-07-02 06:27] LABS: ALB/GLOB RATIO 0.8 (1.0-1.8); ALBUMIN 1.7 gm/dL (4.2-5.5); ANION GAP 13.6 (7.0-16.0); BILIRUBIN,TOTAL 0.4 mg/dL (0.3-1.0); CARBON DIOXIDE 28.9 mEq/L (21.0-31.0); CREATININE - SERUM 1.6 mg/dL (0.7-1.3); GFR AFRICAN-AMERICAN 58.7 ml/min (>90); GFR NON AFRICAN-AMERICAN 48.5 ml/min; POTASSIUM SERUM 5.5 mEq/L (3.5-5.1); TOTAL PROTEIN,SERUM 3.8 gm/dL (6.0-8.3)
[2017-07-02 06:35] LABS: % BASOPHILS 0.3 % (0.0-2.0); % EOSINOPHILS 0.1 % (0.0-5.0)
[2017-07-02 06:37] LABS: % LYMPHOCYTES 7.7 % (20.0-50.0); % MONOCYTES 2.5 % (2.0-10.0); % NEUTROPHILS 89.4 % (40.0-80.0); HEMATOCRIT 30.8 % (41.0-60); HEMOGLOBIN 10.2 gm/dL (12-16); LYMPHOCYTE ABSOLUTE 0.8 Th/cmm (1.5-3.0); MEAN CELL VOLUME 91.9 fl (80-99); MEAN CORPUSCULAR HEMOGLOBIN 30.3 pg (26.0-30.0); MEAN CORPUSCULAR HGB CONC 32.9 pg (28.0-36.0); MONOCYTE ABSOLUTE 0.3 Th/cmm (0.3-1.0); NEUTROPHILE ABSOLUTE 9.3 Th/cmm (1.8-8.0); RED BLOOD COUNT 3.36 Mil/cmm (4.30-5.70); RED CELL DISTRIBUTION WIDTH 18.7 % (11.5-20.0); WHITE BLOOD COUNT 10.4 Th/cmm (4.8-10.8)
[2017-07-02 06:43] LABS: PLATELET COUNT 21 Th/cmm (150-400)
[2017-07-02] MEDS: Multivitamin Tab GT SCH (08:42)
--- NOTE | 2017-07-02 11:26 | General Progress Note ---
Subjective - Review of Systems Service Date: 07/02/17 Objective - Results Result Diagrams: 07/02/17 06:00 07/02/17 06:00 Recent Labs: Laboratory Last Values WBC 10.4 Th/cmm (4.8-10.8) 07/02/17 06:00 RBC 3.36 Mil/cmm (4.30-5.70) L 07/02/17 06:00 Hgb 10.2 gm/dL (12-16) L 07/02/17 06:00 Hct 30.8 % (41.0-60) L 07/02/17 06:00 MCV 91.9 fl (80-99) 07/02/17 06:00 MCH 30.3 pg (26.0-30.0) H 07/02/17 06:00 MCHC Differential 32.9 pg (28.0-36.0) 07/02/17 06:00 RDW 18.7 % (11.5-20.0) 07/02/17 06:00 Plt Count 21 Th/cmm (150-400) L* 07/02/17 06:00 MPV 9.0 fl 07/02/17 06:00 Neutrophils % 89.4 % (40.0-80.0) H 07/02/17 06:00 Band Neutrophils % 22 % (0-10) H 07/01/17 05:50 Lymphocytes % 7.7 % (20.0-50.0) L 07/02/17 06:00 Monocytes % 2.5 % (2.0-10.0) 07/02/17 06:00 Eosinophils % 0.1 % (0.0-5.0) 07/02/17 06:00 Basophils % 0.3 % (0.0-2.0) 07/02/17 06:00 Neutrophils (Manual) 68 % (40-80) 07/01/17 05:50 Lymphocytes 3 % (20-50) L 07/01/17 05:50 Monocytes 7 % (2-10) 07/01/17 05:50 Eosinophils 1 % (0-5) 06/16/17 04:25 Metamyelocytes 2 % (0-0) H 06/23/17 05:00 Myelocytes 1 % 06/23/17 05:00 Hypochromia 1+ 06/23/17 05:00 Platelet Estimate DECREASED PLATELETS (NORMAL) 07/01/17 05:50 Anisocytosis 1+ 06/23/17 05:00 Plt Count 16 Th/cmm (150-750) L* 06/29/17 04:50 PT 10.8 SECONDS (9.5-11.5) 06/29/17 04:50 INR 1.04 (0.5-1.4) 06/29/17 04:50 PTT (Actin FS) 25.0 SECONDS (26.0-38.0) L 06/29/17 04:50 Fibrinogen 500.0 mg/dL (200.0-400.0) H 06/29/17 04:50 D-Dimer 1140 ng/mL (100-400) H 06/29/17 04:50 Specimen Source Arterial 06/26/17 08:54 Sample Site RB 06/26/17 08:54 pH 7.56 (7.35-7.45) H* 06/26/17 08:54 pCO2 34.0 mmHg (35.0-45.0) L 06/26/17 08:54 pO2 60.0 mmHg (80.0-100.0) L 06/26/17 08:54 HCO3 31.1 mEq/L (20.0-26.0) H 06/26/17 08:54 Base Excess 8.0 mEq/L (-3.0-3.0) H 06/26/17 08:54 O2 Saturation 94.0 % (92.0-100.0) 06/26/17 08:54 Endy Test Positive 06/26/17 08:54 Vent Rate 12 06/26/17 08:54 Inspired O2 60 06/26/17 08:54 Tidal Volume N/A 06/26/17 08:54 PEEP N/A 06/26/17 08:54 Pressure (ins/psv/peep) N/A 06/26/17 08:54 Critical Value DM 06/26/17 08:54 Sodium 158 mEq/L (136-145) H 07/02/17 06:00 Potassium 5.5 mEq/L (3.5-5.1) H 07/02/17 06:00 Chloride 121 mEq/L (98-107) H 07/02/17 06:00 Carbon Dioxide 28.9 mEq/L (21.0-31.0) 07/02/17 06:00 Anion Gap 13.6 (7.0-16.0) 07/02/17 06:00 BUN 110 mg/dL (7-25) H* 07/02/17 06:00 Creatinine 1.6 mg/dL (0.7-1.3) H 07/02/17 06:00 Est GFR ( Amer) 58.7 ml/min (>90) 07/02/17 06:00 Est GFR (Non-Af Amer) 48.5 ml/min 07/02/17 06:00 BUN/Creatinine Ratio 68.8 07/02/17 06:00 Glucose 354 mg/dL (70-105) H 07/02/17 06:00 POC Glucose 124 MG/DL (70 - 105) H 06/14/17 05:50 Hemoglobin A1c % 5.8 % (4.0-6.0) 07/01/17 05:50 Whole Bld Lactic Acid 3.45 mmol/L (0.60-1.99) H* 06/03/17 06:45 Calcium 9.0 mg/dL (8.6-10.3) 07/02/17 06:00 Magnesium 2.1 mg/dL (1.9-2.7) 06/26/17 06:05 Total Bilirubin 0.4 mg/dL (0.3-1.0) 07/02/17 06:00 AST 25 U/L (13-39) 07/02/17 06:00 ALT 34 U/L (7-52) 07/02/17 06:00 Alkaline Phosphatase 150 U/L (34-104) H 07/02/17 06:00 Ammonia 54 umol/L (16-53) H 06/20/17 18:05 B-Natriuretic Peptide 22.1 pg/mL (5.0-100.0) 06/26/17 06:05 Total Protein 3.8 gm/dL (6.0-8.3) L 07/02/17 06:00 Albumin 1.7 gm/dL (4.2-5.5) L 07/02/17 06:00 Globulin 2.1 gm/dL 07/02/17 06:00 Albumin/Globulin Ratio 0.8 (1.0-1.8) L 07/02/17 06:00 TSH 0.72 uIU/ml (0.34-5.60) 06/01/17 05:30 Urine Source CATH 05/31/17 12:35 Urine Color YELLOW 05/31/17 12:35 Urine Clarity CLOUDY (CLEAR) 05/31/17 12:35 Urine pH 8.5 (4.6 - 8.0) 05/31/17 12:35 Ur Specific [place] 1.010 (1.005-1.030) 05/31/17 12:35 Urine Protein 30 mg/dL (NEGATIVE) H 05/31/17 12:35 Urine Glucose (UA) NEGATIVE mg/dL (NEGATIVE) 05/31/17 12:35 Urine Ketones NEGATIVE mg/dL (NEGATIVE) 05/31/17 12:35 Urine Blood MODERATE (NEGATIVE) H 05/31/17 12:35 Urine Nitrate NEGATIVE (NEGATIVE) 05/31/17 12:35 Urine Bilirubin NEGATIVE (NEGATIVE) 05/31/17 12:35 Urine Urobilinogen 0.2 E.U./dL (0.2 - 1.0) 05/31/17 12:35 Ur Leukocyte Esterase NEGATIVE (NEGATIVE) 05/31/17 12:35 Urine RBC >100 /hpf (0-5) H 05/31/17 12:35 Urine WBC 2-5 /hpf (0-5) H 05/31/17 12:35 Ur Epithelial Cells NONE SEEN /lpf (FEW) 05/31/17 12:35 Urine Bacteria NONE SEEN /hpf (NONE SEEN) 05/31/17 12:35 Stool Occult Blood NEGATIVE (NEGATIVE) 06/05/17 06:00 Gentamicin Peak 13.8 ug/ml (4.0-8.0) H 06/11/17 11:05 Gentamicin Trough 0.8 ug/ml (0.2-2.0) 06/11/17 08:00 Vancomycin Trough < 2.0 ug/mL (10-20) L 06/30/17 08:20 Hepatitis A IgM Ab Negative (Negative) 06/10/17 06:20 Hep Bs Antigen Negative (Negative) 06/10/17 06:20 Hep B Core IgM Ab Negative (Negative) 06/10/17 06:20 Hepatitis C Antibody 6.9 s/co ratio (0.0-0.9) H 06/10/17 06:20 Influenza A (Rapid) NEG FOR INF A 06/29/17 13:00 Influenza B (Rapid) NEG FOR INF B 06/29/17 13:00 Blood Type O POSITIVE 06/26/17 21:27 Antibody Screen NEGATIVE 06/02/17 11:40 Crossmatch See Detail 06/02/17 11:40 - Physical Exam Vitals and I&O: Vital Signs Temp 97.7 F 07/02/17 08:00 Pulse 138 07/02/17 08:00 Resp 22 07/02/17 09:30 BP 78/45 07/02/17 08:00 Pulse Ox 73 07/02/17 09:30 Intake & Output 07/01/17 07/02/17 07/02/17 18:59 06:59 18:59 Intake Total 1150 750 50 Output Total 200 Balance 1150 550 50 Weight (lbs) 55.338 kg Intake: Intake, IV Amount 1150 50 Dextrose 5% 1,000 ml @ 50 1000 mls/hr IV .Q20H [facility] Rx#: [id number] Meropenem 1 gm In 100 Dextrose 5% 100 ml @ 100 mls/hr IV Q8H [facility] Rx#: [id number] Tigecycline 50 mg In 50 50 Dextrose 5% 50 ml @ 100 mls/hr IV Q12H [facility] Rx#: [id number] Oral 0 Tube Feeding 750 Output: Urine 200 Other: # Bowel Movements 0 Stool Characteristics Liquid Liquid Liquid Brown Brown Brown Active Medications: Current Medications Acetaminophen (Tylenol 650mg Supp) 650 mg RC Q4HR PRN PRN Reason: FEVER >100.1 Stop: 07/30/17 13:39 Last Admin: 06/29/17 10:17 Dose: 650 mg Acetylcysteine (Mucomyst 20%) 3 ml HHN Q4HRT [facility] Stop: 08/22/17 18:59 Last Admin: 07/02/17 08:16 Dose: Not Given Albuterol Sulfate (Albuterol 2.5mg/3ml Neb Ud) 1.25 mg HHN Q4HRT [facility] Stop: 08/06/17 18:59 Last Admin: 07/02/17 08:13 Dose: 1.25 mg Ascorbic Acid (Vitamin C) 500 mg GT DAILY [facility] Stop: 07/31/17 08:59 Last Admin: 07/02/17 08:40 Dose: 500 mg Bisacodyl (Dulcolax 10 Mg Supp) 10 mg RC Q72HR PRN PRN Reason: Constipation Stop: 07/30/17 13:39 [place] Oil/[place] Balsam/Trypsin (Venelex) 1 appl TP DAILY [facility] Stop: 08/15/17 08:59 Last Admin: 07/01/17 08:42 Dose: 1 appl Cholecalciferol (Vitamin D3) 500 iu PO DAILY [facility] Stop: 07/31/17 08:59 Last Admin: 07/02/17 08:41 Dose: 500 iu Diltiazem HCl (Cardizem) 20 mg IVP Q4H PRN PRN Reason: HR Greater than 130 per min Stop: 08/19/17 17:40 Last Admin: 07/01/17 09:06 Dose: 20 mg Filgrastim (Neupogen) 480 mcg SUBQ DAILY [facility] Stop: 08/28/17 08:59 Last Admin: 07/01/17 09:55 Dose: Not Given Guaifenesin (Robitussin) 200 mg PO Q4HR PRN PRN Reason: Cough or Congestion Stop: 07/30/17 13:41 Last Admin: 06/10/17 20:59 Dose: 200 mg Tigecycline 50 mg/ Dextrose 50 mls @ 100 mls/hr IV Q12H [facility] Stop: 08/29/17 00:59 Last Infusion: 07/02/17 08:49 Dose: Infused Dextrose (D5w) 1,000 mls @ 50 mls/hr IV .Q20H [facility] Stop: 08/28/17 13:29 Last Admin: 07/01/17 11:33 Dose: 50 mls/hr Ipratropium [place] (Atrovent Neb 0.5mg/2.5ml) 0.5 mg HHN Q4HRT [facility] Stop: 08/06/17 18:59 Last Admin: 07/02/17 08:15 Dose: 0.5 mg Methylprednisolone Sodium Succinate (Solu-Medrol) 40 mg IVP Q8HR [facility] Stop: 08/31/17 04:59 Last Admin: 07/02/17 05:30 Dose: 40 mg Metoclopramide HCl (Reglan) 5 mg PO TID [facility] Stop: 08/16/17 13:59 Last Admin: 07/02/17 08:41 Dose: 5 mg Midodrine (Proamatine) 5 mg PO TID [facility] Stop: 08/10/17 20:59 Last Admin: 07/02/17 08:42 Dose: 5 mg Multivitamins/Vitamin C (Theragran) 1 tab GT DAILY [facility] Stop: 07/31/17 08:59 Last Admin: 07/02/17 08:42 Dose: 1 tab Ondansetron HCl (Zofran) 4 mg IV Q8H PRN PRN Reason: Nausea / Vomiting Stop: 07/30/17 13:41 Sodium Phosphate (Fleet Enema) 133 ml RC DAILY PRN PRN Reason: Constipation Stop: 07/30/17 13:39 General: Other (non communicative) Abdomen: Other (gastric tube) Extremities: Other (right arm picc) - Procedures Procedures: Procedures Procedure Code Date INSERT EMERGENCY AIRWAY 99869 05/31/17 INSERTION OF ENDOTRACHEAL AIRWAY INTO TRACHEA, VIA OPENING [id number] 05/31/17 RESPIRATORY VENTILATION, GREATER THAN 96 CONSECUTIVE HOURS [id number] 05/31/17 VENT MGMT INPAT INIT DAY 72263 05/31/17 Assessment/Plan - Problem List Patient Problems: All Active Problems COUGH AND CONGESTION (Acute) - Assessment Assessment: * pancytopenia secondary to bone marrow suppression by sepsis and meds Now off vancomycin on meropenem and tygecycline dc neupogen monitor platelet follow cbc, Nutritional Asmnt/Malnutr-PDOC - Dietary Evaluation Malnutrition Findings (Please click <Entered> for more info): Nutritional Asmnt/Malnutrition Start: 06/01/17 17: 31 Text: Status: Complete Freq: Document 06/01/17 17:31 LCJOSELING (Rec: 06/01/17 17:45 JOSELIN [id number]) Nutritional Asmnt/Malnutrition Patient General Information Nutritional Screening High Risk Consult Diagnosis renal failure, prespiratory failure r/o PNA Pertinent Medical Hx/Surgical Hx dementia, MR anemia, spastic quadriplegia, cerebral palsy, seizure, aspiration PNA, s/p respiratory failure, spsis, hyponatremia, gastroenteritis, PEG Subjective Information Consult received for Anibal 13 and pressure ulcer. Pt seen resting in bed at the time of visit, intubated, non-verbal noted. TF not running at this time. Current Diet Order/ Nutrition Support Isosource 1.5 87ml/hr x 17hr Pertinent Medications vitamin C, vitamin D3, D5w, teragran, piperacillin, miralax, cancomycin Pertinent Labs 06/01 na 160, Cl 120, K 4.1, BUN 29, Cr 0.3, Glucose 242, A1c 5.1, Ca 8.4, Mg 2.8 Nutritional Hx/Data Height 1.68 m Height (Calculated Centimeters) 167.6 Current Weight (lbs) 47.854 kg Weight (Calculated Kilograms) 47.9 Weight (Calculated Grams) 26972.0 [place] Body Weight 142 % [place] Body Weight 94 Body Mass Index (BMI) 17.0 Weight Status Underweight GI Symptoms GI Symptoms None Last BM none Difficult in: None Usual diet at home Jevity 1.5 87ml/hr x 17hr Skin Integrity/Comment: decubitus ulceration to sacrum Estimated Nutritional Goals Calories/Kcals/Kg 25-30 Kcals Calculated [id number] based on IBW 65kg Protein g/k.2-1.4 Protein Calculated 78-91 consider respiratory failure and skin probelm Nutritional Problem 1. Problem Problem excessive intake from enteral feeding Etiology current TF regimen providing excessive calorie and protein than estimated nutritional needs Signs/Symptoms: current TF providing 114% of calorie needs and 110% of protein needs Malnutrition Alert Protein-Calorie Malnutrition N/A Is there a minimum of two criteria No selected? Query Text:Check all the applicable criteria. A minimum of two criteria are recommended for diagnosis of either severe or non-severe malnutrition. Intervention/Recommendation Comments 1. Recommend modify TF rate to 70ml/hr x 17hr to meet 100% of nutritional needs and avoid overfeeding. 2. Monitor TF rate, tolerance, wt weekly, skin integrity and labs 3. F/U as moderate risk in 3-5 days, 04/25-04/27 Expected Outcomes/Goals Expected Outcomes/Goals 1. Pt to meet 75-100% of nutritional needs via nutrition support with tolerance 2. 2. Wt stability, skin to remain intact, labs to approach WNL.
[2017-07-02] MEDS: Diltiazem 5 mg/mL 5mL Vial IVP PRN (12:39)
--- NOTE | 2017-07-02 12:49 | Internal Medicine Prog Note ---
Internal Medicine Subjective - Subjective Service Date: 07/02/17 (patients father at bedside and requests to not have a BIPAP and does not want patient to suffer any longer. ) Patient seen and examined:: with staff Patient is:: awake, non-verbal, non-interactive, in bed Patient Complaints of:: congestion Per staff patient has:: no adverse event, tolerating meds Internal Medicine Objective - Results Result Diagrams: 07/02/17 06:00 07/02/17 06:00 Recent Labs: Laboratory Last Values WBC 10.4 Th/cmm (4.8-10.8) 07/02/17 06:00 RBC 3.36 Mil/cmm (4.30-5.70) L 07/02/17 06:00 Hgb 10.2 gm/dL (12-16) L 07/02/17 06:00 Hct 30.8 % (41.0-60) L 07/02/17 06:00 MCV 91.9 fl (80-99) 07/02/17 06:00 MCH 30.3 pg (26.0-30.0) H 07/02/17 06:00 MCHC Differential 32.9 pg (28.0-36.0) 07/02/17 06:00 RDW 18.7 % (11.5-20.0) 07/02/17 06:00 Plt Count 21 Th/cmm (150-400) L* 07/02/17 06:00 MPV 9.0 fl 07/02/17 06:00 Neutrophils % 89.4 % (40.0-80.0) H 07/02/17 06:00 Band Neutrophils % 22 % (0-10) H 07/01/17 05:50 Lymphocytes % 7.7 % (20.0-50.0) L 07/02/17 06:00 Monocytes % 2.5 % (2.0-10.0) 07/02/17 06:00 Eosinophils % 0.1 % (0.0-5.0) 07/02/17 06:00 Basophils % 0.3 % (0.0-2.0) 07/02/17 06:00 Neutrophils (Manual) 68 % (40-80) 07/01/17 05:50 Lymphocytes 3 % (20-50) L 07/01/17 05:50 Monocytes 7 % (2-10) 07/01/17 05:50 Eosinophils 1 % (0-5) 06/16/17 04:25 Metamyelocytes 2 % (0-0) H 06/23/17 05:00 Myelocytes 1 % 06/23/17 05:00 Hypochromia 1+ 06/23/17 05:00 Platelet Estimate DECREASED PLATELETS (NORMAL) 07/01/17 05:50 Anisocytosis 1+ 06/23/17 05:00 Plt Count 16 Th/cmm (150-750) L* 06/29/17 04:50 PT 10.8 SECONDS (9.5-11.5) 06/29/17 04:50 INR 1.04 (0.5-1.4) 06/29/17 04:50 PTT (Actin FS) 25.0 SECONDS (26.0-38.0) L 06/29/17 04:50 Fibrinogen 500.0 mg/dL (200.0-400.0) H 06/29/17 04:50 D-Dimer 1140 ng/mL (100-400) H 06/29/17 04:50 Specimen Source Arterial 06/26/17 08:54 Sample Site RB 06/26/17 08:54 pH 7.56 (7.35-7.45) H* 06/26/17 08:54 pCO2 34.0 mmHg (35.0-45.0) L 06/26/17 08:54 pO2 60.0 mmHg (80.0-100.0) L 06/26/17 08:54 HCO3 31.1 mEq/L (20.0-26.0) H 06/26/17 08:54 Base Excess 8.0 mEq/L (-3.0-3.0) H 06/26/17 08:54 O2 Saturation 94.0 % (92.0-100.0) 06/26/17 08:54 Endy Test Positive 06/26/17 08:54 Vent Rate 12 06/26/17 08:54 Inspired O2 60 06/26/17 08:54 Tidal Volume N/A 06/26/17 08:54 PEEP N/A 06/26/17 08:54 Pressure (ins/psv/peep) N/A 06/26/17 08:54 Critical Value DM 06/26/17 08:54 Sodium 158 mEq/L (136-145) H 07/02/17 06:00 Potassium 5.5 mEq/L (3.5-5.1) H 07/02/17 06:00 Chloride 121 mEq/L (98-107) H 07/02/17 06:00 Carbon Dioxide 28.9 mEq/L (21.0-31.0) 07/02/17 06:00 Anion Gap 13.6 (7.0-16.0) 07/02/17 06:00 BUN 110 mg/dL (7-25) H* 07/02/17 06:00 Creatinine 1.6 mg/dL (0.7-1.3) H 07/02/17 06:00 Est GFR ( Amer) 58.7 ml/min (>90) 07/02/17 06:00 Est GFR (Non-Af Amer) 48.5 ml/min 07/02/17 06:00 BUN/Creatinine Ratio 68.8 07/02/17 06:00 Glucose 354 mg/dL (70-105) H 07/02/17 06:00 POC Glucose 124 MG/DL (70 - 105) H 06/14/17 05:50 Hemoglobin A1c % 5.8 % (4.0-6.0) 07/01/17 05:50 Whole Bld Lactic Acid 3.45 mmol/L (0.60-1.99) H* 06/03/17 06:45 Calcium 9.0 mg/dL (8.6-10.3) 07/02/17 06:00 Magnesium 2.1 mg/dL (1.9-2.7) 06/26/17 06:05 Total Bilirubin 0.4 mg/dL (0.3-1.0) 07/02/17 06:00 AST 25 U/L (13-39) 07/02/17 06:00 ALT 34 U/L (7-52) 07/02/17 06:00 Alkaline Phosphatase 150 U/L (34-104) H 07/02/17 06:00 Ammonia 54 umol/L (16-53) H 06/20/17 18:05 B-Natriuretic Peptide 22.1 pg/mL (5.0-100.0) 06/26/17 06:05 Total Protein 3.8 gm/dL (6.0-8.3) L 07/02/17 06:00 Albumin 1.7 gm/dL (4.2-5.5) L 07/02/17 06:00 Globulin 2.1 gm/dL 07/02/17 06:00 Albumin/Globulin Ratio 0.8 (1.0-1.8) L 07/02/17 06:00 TSH 0.72 uIU/ml (0.34-5.60) 06/01/17 05:30 Urine Source CATH 05/31/17 12:35 Urine Color YELLOW 05/31/17 12:35 Urine Clarity CLOUDY (CLEAR) 05/31/17 12:35 Urine pH 8.5 (4.6 - 8.0) 05/31/17 12:35 Ur Specific [place] 1.010 (1.005-1.030) 05/31/17 12:35 Urine Protein 30 mg/dL (NEGATIVE) H 05/31/17 12:35 Urine Glucose (UA) NEGATIVE mg/dL (NEGATIVE) 05/31/17 12:35 Urine Ketones NEGATIVE mg/dL (NEGATIVE) 05/31/17 12:35 Urine Blood MODERATE (NEGATIVE) H 05/31/17 12:35 Urine Nitrate NEGATIVE (NEGATIVE) 05/31/17 12:35 Urine Bilirubin NEGATIVE (NEGATIVE) 05/31/17 12:35 Urine Urobilinogen 0.2 E.U./dL (0.2 - 1.0) 05/31/17 12:35 Ur Leukocyte Esterase NEGATIVE (NEGATIVE) 05/31/17 12:35 Urine RBC >100 /hpf (0-5) H 05/31/17 12:35 Urine WBC 2-5 /hpf (0-5) H 05/31/17 12:35 Ur Epithelial Cells NONE SEEN /lpf (FEW) 05/31/17 12:35 Urine Bacteria NONE SEEN /hpf (NONE SEEN) 05/31/17 12:35 Stool Occult Blood NEGATIVE (NEGATIVE) 06/05/17 06:00 Gentamicin Peak 13.8 ug/ml (4.0-8.0) H 06/11/17 11:05 Gentamicin Trough 0.8 ug/ml (0.2-2.0) 06/11/17 08:00 Vancomycin Trough < 2.0 ug/mL (10-20) L 06/30/17 08:20 Hepatitis A IgM Ab Negative (Negative) 06/10/17 06:20 Hep Bs Antigen Negative (Negative) 06/10/17 06:20 Hep B Core IgM Ab Negative (Negative) 06/10/17 06:20 Hepatitis C Antibody 6.9 s/co ratio (0.0-0.9) H 06/10/17 06:20 Influenza A (Rapid) NEG FOR INF A 06/29/17 13:00 Influenza B (Rapid) NEG FOR INF B 06/29/17 13:00 Blood Type O POSITIVE 06/26/17 21:27 Antibody Screen NEGATIVE 06/02/17 11:40 Crossmatch See Detail 06/02/17 11:40 - Physical Exam Vitals and I&O: Vital Signs Temp 97.7 F 07/02/17 12:00 Pulse 138 07/02/17 12:00 Resp 37 07/02/17 12:00 BP 78/45 07/02/17 12:00 Pulse Ox 77 07/02/17 12:00 Intake & Output 07/01/17 07/02/17 07/02/17 18:59 06:59 18:59 Intake Total 1150 750 50 Output Total 200 Balance 1150 550 50 Weight (lbs) 122 lb Intake: Intake, IV Amount 1150 50 Dextrose 5% 1,000 ml @ 50 1000 mls/hr IV .Q20H [facility] Rx#: [id number] Meropenem 1 gm In 100 Dextrose 5% 100 ml @ 100 mls/hr IV Q8H [facility] Rx#: [id number] Tigecycline 50 mg In 50 50 Dextrose 5% 50 ml @ 100 mls/hr IV Q12H [facility] Rx#: [id number] Oral 0 Tube Feeding 750 Output: Urine 200 Other: # Bowel Movements 0 Stool Characteristics Liquid Liquid Liquid Brown Brown Brown Active Medications: Current Medications Acetaminophen (Tylenol 650mg Supp) 650 mg RC Q4HR PRN PRN Reason: FEVER >100.1 Stop: 07/30/17 13:39 Last Admin: 06/29/17 10:17 Dose: 650 mg Acetylcysteine (Mucomyst 20%) 3 ml HHN Q4HRT [facility] Stop: 08/22/17 18:59 Last Admin: 07/02/17 11:54 Dose: Not Given Albuterol Sulfate (Albuterol 2.5mg/3ml Neb Ud) 1.25 mg HHN Q4HRT [facility] Stop: 08/06/17 18:59 Last Admin: 07/02/17 11:50 Dose: 1.25 mg Ascorbic Acid (Vitamin C) 500 mg GT DAILY [facility] Stop: 07/31/17 08:59 Last Admin: 07/02/17 08:40 Dose: 500 mg Bisacodyl (Dulcolax 10 Mg Supp) 10 mg RC Q72HR PRN PRN Reason: Constipation Stop: 07/30/17 13:39 [place] Oil/[place] Balsam/Trypsin (Venelex) 1 appl TP DAILY [facility] Stop: 08/15/17 08:59 Last Admin: 07/01/17 08:42 Dose: 1 appl Cholecalciferol (Vitamin D3) 500 iu PO DAILY [facility] Stop: 07/31/17 08:59 Last Admin: 07/02/17 08:41 Dose: 500 iu Diltiazem HCl (Cardizem) 20 mg IVP Q4H PRN PRN Reason: HR Greater than 130 per min Stop: 08/19/17 17:40 Last Admin: 07/01/17 09:06 Dose: 20 mg Guaifenesin (Robitussin) 200 mg PO Q4HR PRN PRN Reason: Cough or Congestion Stop: 07/30/17 13:41 Last Admin: 06/10/17 20:59 Dose: 200 mg Tigecycline 50 mg/ Dextrose 50 mls @ 100 mls/hr IV Q12H [facility] Stop: 08/29/17 00:59 Last Infusion: 07/02/17 08:49 Dose: Infused Dextrose (D5w) 1,000 mls @ 50 mls/hr IV .Q20H [facility] Stop: 08/28/17 13:29 Last Admin: 07/01/17 11:33 Dose: 50 mls/hr Ipratropium [place] (Atrovent Neb 0.5mg/2.5ml) 0.5 mg HHN Q4HRT [facility] Stop: 08/06/17 18:59 Last Admin: 07/02/17 11:50 Dose: 0.5 mg Methylprednisolone Sodium Succinate (Solu-Medrol) 40 mg IVP Q8HR [facility] Stop: 08/31/17 04:59 Last Admin: 07/02/17 05:30 Dose: 40 mg Metoclopramide HCl (Reglan) 5 mg PO TID [facility] Stop: 08/16/17 13:59 Last Admin: 07/02/17 08:41 Dose: 5 mg Midodrine (Proamatine) 5 mg PO TID [facility] Stop: 08/10/17 20:59 Last Admin: 07/02/17 08:42 Dose: 5 mg Multivitamins/Vitamin C (Theragran) 1 tab GT DAILY FERNANDO Stop: 07/31/17 08:59 Last Admin: 07/02/17 08:42 Dose: 1 tab Ondansetron HCl (Zofran) 4 mg IV Q8H PRN PRN Reason: Nausea / Vomiting Stop: 07/30/17 13:41 Sodium Phosphate (Fleet Enema) 133 ml RC DAILY PRN PRN Reason: Constipation Stop: 07/30/17 13:39 General: weak, congested HEENT: NC/AT, PERRLA Neck: No LAD, deformity Lungs: congested, rales, ronchi Cardiovascular: RRR, Normal S1, Normal S2, without murmur Abdomen: soft, non-tender, non-distended, +GT, positive bowel sound Extremities: excoriation, ecchymosis, contracture, deformity, atrophy Neurological: unable to follow command - Procedures Procedures: Procedures Procedure Code Date INSERT EMERGENCY AIRWAY 06209 05/31/17 INSERTION OF ENDOTRACHEAL AIRWAY INTO TRACHEA, VIA OPENING [id number] 05/31/17 RESPIRATORY VENTILATION, GREATER THAN 96 CONSECUTIVE HOURS [id number] 05/31/17 VENT MGMT INPAT INIT DAY 35685 05/31/17 Internal Medicine Assmt/Plan - Assessment Assessment: S/p cardiopulmonary arrest s/p extubation Multilobar PNA lactic acidosis Acute Respiratory Failure Sepsis PNA leukocytosis hypokalemia acute renal insufficiency spastic quadriplegia seizures s/p colostomy s/p wound debridement DNR STATUS - Plan Plan: suction patient has needed aspiration precautions inhalation treatments empiric ivantibiotics continue current plan of care overall prognosis is poor Nutritional Asmnt/Malnutr-PDOC - Dietary Evaluation Malnutrition Findings (Please click <Entered> for more info): Nutritional Asmnt/Malnutrition Start: 06/01/17 17: 31 Text: Status: Complete Freq: Document 06/01/17 17:31 SHELBIE (Rec: 06/01/17 17:45 SHELBIE [id number]) Nutritional Asmnt/Malnutrition Patient General Information Nutritional Screening High Risk Consult Diagnosis renal failure, prespiratory failure r/o PNA Pertinent Medical Hx/Surgical Hx dementia, MR anemia, spastic quadriplegia, cerebral palsy, seizure, aspiration PNA, s/p respiratory failure, spsis, hyponatremia, gastroenteritis, PEG Subjective Information Consult received for Anibal 13 and pressure ulcer. Pt seen resting in bed at the time of visit, intubated, non-verbal noted. TF not running at this time. Current Diet Order/ Nutrition Support Isosource 1.5 87ml/hr x 17hr Pertinent Medications vitamin C, vitamin D3, D5w, teragran, piperacillin, miralax, cancomycin Pertinent Labs 06/01 na 160, Cl 120, K 4.1, BUN 29, Cr 0.3, Glucose 242, A1c 5.1, Ca 8.4, Mg 2.8 Nutritional Hx/Data Height 5 ft 6 in Height (Calculated Centimeters) 167.6 Current Weight (lbs) 105 lb 8 oz Weight (Calculated Kilograms) 47.9 Weight (Calculated Grams) 98761.0 [place] Body Weight 142 % [place] Body Weight 94 Body Mass Index (BMI) 17.0 Weight Status Underweight GI Symptoms GI Symptoms None Last BM none Difficult in: None Usual diet at home Jevity 1.5 87ml/hr x 17hr Skin Integrity/Comment: decubitus ulceration to sacrum Estimated Nutritional Goals Calories/Kcals/Kg 25-30 Kcals Calculated [id number] based on IBW 65kg Protein g/k.2-1.4 Protein Calculated 78-91 consider respiratory failure and skin probelm Nutritional Problem 1. Problem Problem excessive intake from enteral feeding Etiology current TF regimen providing excessive calorie and protein than estimated nutritional needs Signs/Symptoms: current TF providing 114% of calorie needs and 110% of protein needs Malnutrition Alert Protein-Calorie Malnutrition N/A Is there a minimum of two criteria No selected? Query Text:Check all the applicable criteria. A minimum of two criteria are recommended for diagnosis of either severe or non-severe malnutrition. Intervention/Recommendation Comments 1. Recommend modify TF rate to 70ml/hr x 17hr to meet 100% of nutritional needs and avoid overfeeding. 2. Monitor TF rate, tolerance, wt weekly, skin integrity and labs 3. F/U as moderate risk in 3-5 days, 04/25-04/27 Expected Outcomes/Goals Expected Outcomes/Goals 1. Pt to meet 75-100% of nutritional needs via nutrition support with tolerance 2. 2. Wt stability, skin to remain intact, labs to approach WNL.
[2017-07-02] MEDS: Dextrose 5% 1,000 ML IV SCH (12:50)
[2017-07-02] MEDS ORDERED: Morphine Sulfate 2 mg/mL 1mL Syr IVP PRN (13:14)
[2017-07-02] MEDS: Venelex 60gm Tube TP SCH (13:29)
--- NOTE | 2017-07-13 09:57 | Discharge Summary ---
DATE OF DISCHARGE: 07/02/2017 FINAL DIAGNOSES: Status post cardiopulmonary arrest, status post extubation, multilobar pneumonia, lactic acidosis, acute respiratory failure, sepsis, leukocytosis, hypokalemia, acute renal insufficiency, spastic quadriplegia, seizures, status post colostomy, status post debridement and DNR status. HISTORY OF PRESENT ILLNESS: This is a 52-year-old male who is a resident of [facility] who is brought to [facility] due to 1-day history of cough and congestion. The patient did not have any fevers at the custodial. For this reason, the patient was admitted to the med-surg unit for further evaluation. During the hospital stay, the patient was initially admitted to the telemetry unit. However, on 06/01/2017, in the morning at about 6:45 in the morning, the patient was found unresponsive with no respirations. The patient was orally intubated and placed on a ventilator by ER physician. The patient had a furnace door tender as well on the case. The patient had a culture of his abdomen and it shows E. coli ESBL. The patient also had series of blood cultures, have no growth after 5 days. The patient also was swabbed for MRSA, it was negative for MRSA. While the patient was in the ICU, the patient was kept on empiric IV antibiotics. The patient had infectious disease as well on the case as well as a senior marketing coordinator. The patient had a 2D echocardiogram done and the conclusion was hypertrophy of the left ventricle and ejection fraction of 55%. Moving forward, on 06/21/2017, patient had a surgical consultation as well. The patient was noted to have a stage III sacral decubitus ulcers, so on 06/14/2017, patient had excisional debridement of a stage III sacral decubitus ulcer as well as the patient had a diverting colostomy as well. The patient had also a consultation with maker up folding due to pancytopenia and the plan of care for Dr. Bateman was to the patient was given Neupogen 1 dose and was transfused platelets because of the ecchymosis and hematomas on the lower abdomen. The patient had a DIC panel. The patient's mother and father were at bedside at one point and explained to the patient's family regarding the code status. The patient's mother and father both agreed to have patient a DNR status and we will also do heroic measures and to keep the patient comfortable. Moving forward the patient was extubated in the ICU and was stabilized and was later then transferred to the telemetry unit. The patient was kept on BiPAP. The patient had repeated chest x-ray done and still shows multilobar pneumonia; however, on 07/02/2017, patient was on BiPAP and on FIO2 of 100%. The patient's oxygen was in the low 75 to high 80%. It was then decided that the father did not want the patient to have the BiPAP on and to have a Ventimask nasal cannula. Unfortunately, on 07/02/2017, at 1600, patient . When patient was pronounced by the ER physician, social service assistant and director of casework services both spoke to the patient's father regarding the resources for the mortuary. JOB# [id number]
== END 2017-07-02 16:13 | disposition expired | DRG 710 ==
LOC: ER 08:50 → TELE 15:06 → ICU 06-01 07:30 → TELE 06-11 17:40 → ICU 06-14 10:11 → TELE 06-19 06:09
PROVIDERS: ADMIT Internal Medicine; ATTEND Internal Medicine
PROC: 0BH17EZ Insertion of Endotracheal Airway into Trachea, Via Natural or Artificial Opening (ICD-10-PCS; principal; 2017-06-01)
PROC: 5A1955Z Respiratory Ventilation, Greater than 96 Consecutive Hours (ICD-10-PCS; 2017-06-01)
PROC: 30233N1 Transfusion of Nonautologous Red Blood Cells into Peripheral Vein, Percutaneous Approach (ICD-10-PCS; 2017-06-02)
PROC: 0XH633Z Insertion of Infusion Device into Right Upper Extremity, Percutaneous Approach (ICD-10-PCS; 2017-06-04)
PROC: 0D1M0Z4 Bypass Descending Colon to Cutaneous, Open Approach (ICD-10-PCS; 2017-06-14)
PROC: 0JB70ZZ Excision of Back Subcutaneous Tissue and Fascia, Open Approach (ICD-10-PCS; 2017-06-14)
PROC: 5A1945Z Respiratory Ventilation, 24-96 Consecutive Hours (ICD-10-PCS; 2017-06-14)
PROC: 5A09557 Assistance with Respiratory Ventilation, Greater than 96 Consecutive Hours, Continuous Positive Airway Pressure (ICD-10-PCS; 2017-06-25)
PROC: 30233R1 Transfusion of Nonautologous Platelets into Peripheral Vein, Percutaneous Approach (ICD-10-PCS; 2017-06-27)
DX: A41.9 Sepsis, unspecified organism (principal); I46.9 Cardiac arrest, cause unspecified; J96.01 Acute respiratory failure with hypoxia; J69.0 Pneumonitis due to inhalation of food and vomit; E43 Unspecified severe protein-calorie malnutrition; D61.82 Myelophthisis; L89.153 Pressure ulcer of sacral region, stage 3; E86.0 Dehydration; Z99.11 Dependence on respirator [ventilator] status; N17.9 Acute kidney failure, unspecified; E87.0 Hyperosmolality and hypernatremia; F72 Severe intellectual disabilities; G80.0 Spastic quadriplegic cerebral palsy; Z16.12 Extended spectrum beta lactamase (ESBL) resistance; E87.6 Hypokalemia; Z66 Do not resuscitate; G40.909 Epilepsy, unspecified, not intractable, without status epilepticus; I10 Essential (primary) hypertension; L03.311 Cellulitis of abdominal wall; F03.90 Unspecified dementia, unspecified severity, without behavioral disturbance, psychotic disturbance, mood disturbance, and anxiety; N39.0 Urinary tract infection, site not specified; B96.20 Unspecified Escherichia coli [E. coli] as the cause of diseases classified elsewhere; D50.9 Iron deficiency anemia, unspecified; Z68.1 Body mass index [BMI] 19.9 or less, adult; Z93.1 Gastrostomy status; Z79.51 Long term (current) use of inhaled steroids; Z74.01 Bed confinement status
CPT/HCPCS: 36415-UA; 36600-90; 71045-TC; 74000-TC; 80048-TC; 80053-TC; 80074-90; 80170-TC; 80202-TC; 81001-TC; 82140-TC; 82270-TC; 82803-TC; 82948-90; 83036-90; 83605; 83735-TC; 83880-TC; 84443-TC; 85007-TC; 85025-TC; 85027-TC; 85049-TC; 85379-TC; 85384-TC; 85610-TC; 85730-TC; 86850-TC; 86900-TC; 86901-TC; 86922-TC; 87070; 87070-90; 87086-90; 87449-90; 87804-TC; 88304-TC; 90779; 90799; 92950; 93005; 94002; 94003; 94640; 94660; 94760; 99201; J0692; J1442; J1580; J1644; J2001; J2060; J2185; J2270; J2543; J2704; J2765; J2920; J2930; J3010; J3243; J3370; J3475; J3480; J3490; J7030; J7040; J7042; J7070; J7121; J7613; P9016; P9035; V2790; X6452; Z7610